=== PATIENT | male | born 1945 | race Caucasian/White ===

== ENCOUNTER 2019-12-01 17:15 | Inpatient (IN) ==
--- NOTE | 2019-12-01 22:01 | History & Physical Report ---
Date of Service December 01, 2019 Assessment & Plan (1) Sepsis: Admit to PCU on telemetry. Initial lactate at [facility] was 4.9 and 4.6. Repeat lactate. She received 1 g of cefepime in the [facility] ER. Started Zosyn IV empirically to cover broad-spectrum. Blood cultures done and [facility] ER and pending. Repeated blood cultures, urine analysis with urine culture and sputum culture. Follow-up with all cultures. DVT prophylaxis patient is supratherapeutic, on warfarin. Hold warfarin and continue checking INR. Desirable INR is between 2 and 3 for pulmonary embolism. Full code Present on Admission?: Yes (2) Acute respiratory failure: Procalcitonin pending. Acute respiratory failure could be related to infection as well as acute exacerbation of CHF. Acute respiratory failure could be also due to pneumonia. Patient was not on oxygen at home. Patient requires right now 2 L of oxygen to be above 92%. Patient received cefepime 1 g IV in [facility]. Started Zosyn IV here empirically, follow-up of blood/sputum/urine/urine cultures and treat per specificity and sensitivity. Patient also started on doxycycline 100 mg p.o. twice daily for atypical microorganisms. Started inhalation with ipratropium/levalbuterol every 6 hours scheduled. Continue montelukast 10 mg p.o. Continue dexamethasone 4 mg p.o. Heart Lasix 40 mg IV daily. Continue oxygen supplementation and keep O2 sats above 92%. Monitor strict in and out. Daily weight. Restrict p.o. intake to 1200 mils. Low-sodium diet. Present on Admission?: Yes (3) Pulmonary embolism: Patient was on warfarin chronically. Will hold warfarin since patient is supratherapeutic at 3.6 and INR supposed to be between 2 and 3 for pulmonary embolism. Monitor closely INR and restart warfarin when INR close to 2. Present on Admission?: Yes (4) Light chain myeloma: Continue acyclovir 400 mg p.o. twice daily, continue dutasteride 0.5 mg p.o. daily. We will consult Dr. Rodriguez hematology oncology Present on Admission?: Yes (5) Acute exacerbation of CHF (congestive heart failure): As discussed above. Strict in and out. Daily weight. Low-sodium diet. Restrict p.o. intake to 1200 mils. Lasix 40 mg IV daily with expectation to have 1.5 L net negative loss. Monitor electrolytes and replenish Present on Admission?: Yes (6) Supratherapeutic INR: INR 3.6-supratherapeutic. Hold warfarin and monitor INR closely. Expectant INR to be between 2 and 3 for pulmonary embolism. 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 Report of the ER physician patient was diagnosed with sepsis based on lactate of 4.6 and he was given Cefepime 1 g IV in the ER. Patient also received albuterol sulfate ipratropium x1 inhalation. Patient stated that his situation has been ongoing for almost 1 week. He reports being short of breath and having a cough which is nonproductive. Patient reports at this time he feels chills and shivering. Patient reports having in his left chest port placed for chemotherapy for multiple myeloma which was placed by on August 02, 2018. Records shows Dr. Rodriguez's note which is significant for completion of induction chemotherapy and the patient underwent autologous peripheral blood stem cell transplant in [place] on December 09, 2016. Patient was noted to suffer disease progression while receiving maintenance Velcade. He was then referred again to specialist in [place] where he was recommended combination of daratumumab, Pomalyst and dexamethasone. Labs are reviewed from [facility] emergency department which shows WBCs of 18.4, hemoglobin 13, hematocrit 39.2, platelets 143, neutrophils of 83 with left shift PT of 32.5, INR 3.64, PTT 63, pH 7.40, PCO2 30, H0 321, glucose 119, creatinine 1.2, GFR 59, sodium 141, potassium 3.6, chloride 112, carbon dioxide 18, calcium 8.8, magnesium 2, total protein 6.8, bilirubin 0.3, AST 8, ALT 27, alkaline phosphatase 76, troponin 0 0.02, BNP 174 high, lactic acid 4.9--4.6. Chest x-rays no evidence of acute abnormality. Decision was made to admit patient to DCU on telemetry for further evaluation and treatment of sepsis and acute exacerbation of congestive heart failure. Allergies Allergy/AdvReac Type Severity Reaction Status Date / Time dexamethasone AdvReac Severe Hallucinati Verified 11/23/19 08:58 on hydrocodone AdvReac Unknown AGITATION Verified 11/23/19 08:58 lisinopril AdvReac Unknown Dizziness Verified 11/23/19 08:58 meclizine AdvReac Unknown HALLUCINATI Verified 11/23/19 08:58 ON Home Medications Home Medications Medication Instructions Recorded Confirmed Type acetaminophen [Acetaminophen Extra 1,000 mg PO Q8H PRN 06/28/18 11/23/19 History Strength] daratumumab 0 mg IV MONTHLY 06/28/18 11/23/19 History polyethylene glycol 3350 [Miralax] 17 g PO DAILY PRN 06/28/18 11/23/19 History pomalidomide 4 mg capsule 4 mg PO DIRECTED 06/29/18 11/23/19 History montelukast [Singulair] 10 mg PO DIRECTED 07/29/18 11/23/19 History Neulasta 6 mg SUBCUT DIRECTED 08/02/18 11/23/19 History acyclovir 400 mg PO BID 08/02/18 11/23/19 History citalopram 10 mg PO QAM 04/25/19 11/23/19 History zoledronic acid 0 mg IV .Q 3 MONTHS 04/25/19 11/23/19 History dutasteride 0.5 mg capsule 0.5 mg PO DAILY #30 cap 10/17/19 11/23/19 Rx warfarin 3 mg tablet See Rx Instructions .ROUTE UD #45 10/19/19 11/23/19 Rx tab potassium citrate 10 mEq (1,080 10 meq PO BID #60 tab 11/23/19 11/23/19 Rx mg) tablet,extended release allopurinol 100 mg tablet 100 mg PO BID #60 tab 11/28/19 Rx Past Med/Surg History Medical History Anemia BASELINE 8-9 RANGE Cancer MULTIPLE MYELOMA (DX'D 2015) Depression GERD (gastroesophageal reflux disease) Osteoporosis 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 Pulmonary embolism 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) SOB (shortness of breath) on exertion Thrombocytopenia Surgical History Bone marrow replaced by transplant Social History Preferred Language: Hebrew Communication Ability: Effective Visual Impairment: No Limitations 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 Beliefs That Will Affect Care: None Current Living Situation: Spouse Feels Safe at Home: Yes Safety Concerns: Feels Safe At This Time Smoking Status: Never smoker Second Hand Exposure: No ; Hx Alcohol Use: No Hx Substance Use: No Review of Systems Review of Systems: All systems reviewed & are unremarkable except as noted in HPI & below Physical Exam Constitutional: WD/WN, vitals as above well developed, + ill appearing and + obese Eyes: PERRL Injected conjunctivitis ENMT: external ear and nose normal, oropharynx normal Neck: trachea midline, no thyromegaly Respiratory: Auscultation: + crackles and + wheezes Cardiovascular: Heart Sounds: normal S1, normal S2 and + murmur Vessels: + JVD and dorsalis pedis pulses present Extremities: + pedal edema Gastrointestinal (Abdomen): normal bowel sounds, soft, nontender, no hepatosplenomegaly Musculoskeletal: no cyanosis or clubbing, extremities motor strength 5/5 Skin: no rashes, warm and dry Neurologic: patellar DTR's 2+ bilat, sensation intact Psychiatric: Patient appears to be mildly confused. Oriented in person. Lymphatic: no cervical or axillary lymphadenopathy Code Status & VTE Plan Code Status Full code VTE Prophylaxis Plan VTE Prophylaxis will be ordered: Yes PG Care Time/CCT Total # of Minutes Spent Total Time Spent with Patient: Total time spent is greater than 50% in coordination of care (as documented) at patient's floor/unit and/or counseling patient: Coding Level of Care Code 12562 Initial Inpt Care Lvl 3 Diagnoses Sepsis A41.9 Acute respiratory failure J96.00 Pulmonary embolism I26.99 Light chain myeloma C90.00 Acute exacerbation of CHF (congestive heart failure) I50.9 Supratherapeutic INR R79.1
[2019-12-01] MEDS ORDERED: PATIENT'S HEIGHT AND/OR WEIGHT NEEDED SCH (22:15)
[2019-12-01] MEDS ORDERED: ALUMINUM/MAGNESIUM SUSP 30 ML UDC PO PRN (22:25)
[2019-12-01] MEDS ORDERED: ONDANSETRON INJ 2 MG/ML 2 ML VIAL IV PRN (22:25)
[2019-12-01] MEDS ORDERED: GUAIFENESIN/DEXTROM SYRUP 200MG/20MG 10ML UDC PO PRN (22:25)
[2019-12-01] MEDS ORDERED: XOPENEX/ATROVENT 0.63mg/0.5MG NEB COMBO NEB SCH (22:25)
[2019-12-01] MEDS ORDERED: POLYETHYLENE (MIRALAX) 17 GM PACK PO PRN (22:25)
[2019-12-01] MEDS ORDERED: ACETAMINOPHEN 325 MG TAB PO PRN (22:25)
[2019-12-01] MEDS ORDERED: MONTELUKAST SODIUM 10 MG TABLET PO SCH (22:25)
[2019-12-01] MEDS ORDERED: dexAMETHasone 4 MG TAB PO SCH (22:25)
[2019-12-01] MEDS ORDERED: PIPERACILL/TAZOBAC CONSULT ACTIVE PRN (22:25)
[2019-12-01] MEDS ORDERED: MAGNESIUM HYDROXIDE SUSP 30 ML UDC PO PRN (22:25)
[2019-12-01] MEDS ORDERED: FUROSEMIDE 40 MG in SYRINGE 0 ML IV ONE (22:35)
[2019-12-01] MEDS ORDERED: PIPERACILLIN/TAZOBACTAM 4.5 GM in DEXTROSE 5% 100 ML IV ONE (22:45)
[2019-12-01] MEDS ORDERED: VANCOMYCIN CONSULT ACTIVE PRN (22:50)
--- NOTE | 2019-12-01 22:52 | XRay Report ---
XR chest 1V portable HISTORY: sepsis COMPARISON: Chest 08/02/2018. FINDINGS: No pneumothorax. No pleural effusions. The heart is normal in size. The lungs are clear. Le ft ureter Port-A-Cath terminates at the distal SVC. This remains unchanged. IMPRESSION: No significant change compared to the prior study. No acute process. ACT 112: Negative or not required by law. Electronically signed by: Ming Rey M.D. 12/01/2019 10:50 PM
[2019-12-01] MEDS ORDERED: VANCOMYCIN HCL 2,500 MG in SODIUM CHLORIDE 0.9% 500 ML IV ONE (23:00)
[2019-12-01] MEDS: allopurinoL 100 MG TAB PO SCH (23:09)
[2019-12-01] MEDS: POTASSIUM CHLORIDE 20 MEQ TABCR PO SCH (23:10)
[2019-12-01] MEDS: POTASSIUM CITRATE 10 MEQ TAB PO SCH (23:10)
[2019-12-01] MEDS: DOXYCYCLINE HYCLATE 100 MG CAP PO SCH (23:11)
[2019-12-01] MEDS: ACYCLOVIR 400 MG TAB PO SCH (23:14)
[2019-12-01 23:18] LABS: Hematocrit (blood only) 36.9 % (42-52); Mean Corpuscular Hemoglobin 33.8 pg (25-34); Mean Corpuscular Volume 103.9 fL (80-100); Mean Platelet Volume 10.4 fL (7.4-10.4); Platelet Count 135 K/uL (130-400); RDW Coefficient of Variation 16.9 % (11.5-14.5); RDW Standard Deviation 64.7 fL (36.4-46.3); Red Blood Count 3.55 M/uL (4.7-6.1); White Blood Count 11.39 K/uL (4.8-10.8)
[2019-12-01 23:32] LABS: Mean Corpuscular Hgb Conc 32.5 g/dL (32-36)
[2019-12-01 23:36] LABS: Albumin Level 3.2 gm/dl (3.4-5.0); BUN Creatinine Ratio 15.5 (10-20); Creatinine Clr Calc Pharmacy 74.2 ml/min; Est GFR (African American) 82.6; Est GFR (Non-African American) 71.2; Potassium 3.8 mmol/L (3.5-5.1)
[2019-12-01 23:39] LABS: Partial Thromboplastin Ratio 1.5; Partial Thromboplastin Time 39.3 Seconds (21.0-31.0); Prothrombin Time 33.9 Seconds (9.0-12.0)
[2019-12-01 23:41] LABS: Albumin Globulin Ratio 1.1 (0.9-2); Bilirubin,Total 0.3 mg/dl (0.2-1); Globulin 2.9 gm/dl (2.5-4.0); Total Protein 6.1 gm/dl (6.4-8.2); Troponin I 0.016 ng/ml (0-0.045)
[2019-12-01] MEDS: LEVALBUTEROL HCL 0.63 MG/3 ML NEB NEB SCH (23:43)
[2019-12-01] MEDS: IPRATROPIUM BROMIDE NEB SOLN 0.02% 2.5 ML VIAL INH SCH (23:43)
[2019-12-01 23:53] LABS: Basophils # (auto) 0.02 K/uL (0-0.2); Basophils % (auto) 0.2 %; Immature Granulocytes # (auto) 0.03 K/uL (0.00-0.02); Immature Granulocytes % (auto) 0.3 %; Lymphocytes # (auto) 1.12 K/uL (1.2-3.4); Lymphocytes % (auto) 9.8 %; Monocytes # (auto) 0.86 K/uL (0.11-0.59); Monocytes % (auto) 7.6 %; Neutrophils # (auto) 9.36 K/uL (1.4-6.5); Neutrophils % (auto) 82.1 %; Ovalocytes 1+
[2019-12-02 00:01] LABS: INR 3.6 (0.9-1.1)
[2019-12-02 01:19] LABS: Hematocrit (blood only) 36.3 % (42-52); Mean Corpuscular Hemoglobin 34.2 pg (25-34); Mean Corpuscular Hgb Conc 33.1 g/dL (32-36); Mean Corpuscular Volume 103.4 fL (80-100); Mean Platelet Volume 10.2 fL (7.4-10.4); Platelet Count 130 K/uL (130-400); RDW Coefficient of Variation 16.8 % (11.5-14.5); RDW Standard Deviation 63.8 fL (36.4-46.3); Red Blood Count 3.51 M/uL (4.7-6.1); White Blood Count 11.16 K/uL (4.8-10.8)
[2019-12-02 01:37] LABS: Albumin Level 3.2 gm/dl (3.4-5.0); BUN Creatinine Ratio 14.8 (10-20); Calcium 7.7 mg/dl (8.5-10.1); Creatinine Clr Calc Pharmacy 70.1 ml/min; Est GFR (African American) 77.1; Est GFR (Non-African American) 66.5; Potassium 3.7 mmol/L (3.5-5.1)
[2019-12-02 01:40] LABS: Prothrombin Time 34.5 Seconds (9.0-12.0)
[2019-12-02 01:42] LABS: Albumin Globulin Ratio 1.1 (0.9-2); Bilirubin,Total 0.5 mg/dl (0.2-1); Total Protein 6.2 gm/dl (6.4-8.2); Troponin I 0.017 ng/ml (0-0.045)
[2019-12-02] MEDS: IPRATROPIUM BROMIDE NEB SOLN 0.02% 2.5 ML VIAL INH SCH ×4 (01:53→19:47)
[2019-12-02] MEDS: LEVALBUTEROL HCL 0.63 MG/3 ML NEB NEB SCH ×4 (01:53→19:47)
[2019-12-02 02:06] LABS: INR 3.7 (0.9-1.1)
[2019-12-02 02:13] LABS: Basophils # (auto) 0.02 K/uL (0-0.2); Basophils % (auto) 0.2 %; Echinocytes 1+; Immature Granulocytes # (auto) 0.03 K/uL (0.00-0.02); Immature Granulocytes % (auto) 0.3 %; Lymphocytes # (auto) 1.37 K/uL (1.2-3.4); Lymphocytes % (auto) 12.3 %; Monocytes # (auto) 0.94 K/uL (0.11-0.59); Monocytes % (auto) 8.4 %; Neutrophils % (auto) 78.8 %; Ovalocytes 1+
[2019-12-02 03:09] LABS: Influenza A virus by PCR Neg for Influ A (Neg); Influenza B virus by PCR Neg for Influ B (Neg)
[2019-12-02] MEDS ORDERED: COUGH DROP (SUGAR FREE) LOZ 24 LOZ/1 BOX BUCCAL ONE (04:17)
[2019-12-02] MEDS: PIPERACILLIN/TAZOBACTAM 3.375 GM in DEXTROSE 5% 100 ML IV SCH ×3 (04:24→21:16)
[2019-12-02 08:30] LABS: Appearance Urine Clear (Clear); Bacteria Urine Automated Negative (Negative); Bilirubin Urine Negative (Negative); Blood Urine 1+ (Negative); Cast Urine Automated 0 /lpf (0-5); Color Urine Yellow; Epithelial Cell Urine Auto 0-5 /lpf (0-5); Glucose Urine UA Negative (Negative); Ketones Urine Negative (Negative); Leukocyte Esterase Urine Negative (Negative); Nitrite Urine Negative (Negative); Protein Urine Negative (Negative); RBC Urine Automated 0-4 /hpf (0-4); Specific Gravity Urine 1.024 (1.000-1.030); Urobilinogen Urine Negative (Negative)
[2019-12-02] MEDS: POTASSIUM CITRATE 10 MEQ TAB PO SCH ×2 (08:35→21:18)
[2019-12-02] MEDS: ACYCLOVIR 400 MG TAB PO SCH ×2 (08:35→21:19)
[2019-12-02] MEDS: DOXYCYCLINE HYCLATE 100 MG CAP PO SCH ×2 (08:35→21:18)
[2019-12-02] MEDS: CITALOPRAM 20 MG TAB PO SCH (08:36)
[2019-12-02] MEDS: allopurinoL 100 MG TAB PO SCH ×2 (08:36→21:17)
--- NOTE | 2019-12-02 08:41 | CT Scan Report ---
CT SCAN OF THE BRAIN WITHOUT IV CONTRAST CLINICAL HISTORY: Change in mental status. COMPARISON STUDY: No priors. TECHNIQUE: Unenhanced axial CT scan of the brain is performed from the vertex to the skull base. A do se lowering technique was utilized adhering to the principles of ALARA. CT DOSE: 844.62 mGy.cm FINDINGS: Brain parenchyma: There are age-related involutional changes noting mild subcortical and periventric ular microangiopathic change. There is no hemorrhage, mass effect, or evidence of acute territorial i schemia by CT criteria. Walters-white matter differentiation is preserved. No extra-axial fluid collecti on is seen. Ventricles, sulci, cisterns: Prominent secondary to involutional change. Intracranial vasculature: There is atherosclerotic calcification of the cavernous carotid and vertebr al arteries. Calvarium: Unremarkable. Sinuses and mastoids: There is mild mucosal thickening within the maxillary antra and left sphenoid s inus. Moderate mucosal thickening is noted in the ethmoid sinuses. The mastoid air cells are well pne umatized. Orbits: The bony orbits are grossly intact. IMPRESSION: There is no hemorrhage, mass effect, or evidence of acute territorial ischemia by CT frankie villa. ACT 112: Negative or not required by law. Electronically signed by: London Sagastume M.D. 12/02/2019 8:39 AM
[2019-12-02] MEDS ORDERED: FUROSEMIDE 40 MG in SYRINGE 0 ML IV SCH (09:00)
[2019-12-02] MEDS ORDERED: PERFLUTREN LIPID MICROSPHERE (DEFINITY) IV ONE (09:54)
[2019-12-02] MEDS: VANCOMYCIN HCL 1,500 MG in SODIUM CHLORIDE 0.9% 500 ML IV SCH ×2 (10:47→23:12)
--- NOTE | 2019-12-02 11:34 | Hospitalist Progress Note ---
Date of Service December 02, 2019 Assessment & Plan (1) Acute respiratory failure with hypoxia: 2nd acute bronchitis. I repeated a 2-view chest x-ray today - no evidence of complicating pneumonia. He remains on broad-spectrum IV antibiotics and doxy to cover for septicemia/bacteremia while awaiting blood cultures at [facility] and [facility]. Likely, however, that bronchitis is viral-induced. sick with similar symptoms. Cont nebs. Add mucinex. Add IV steroids q12h - spoke with Dr Rodriguez and no contraindication from onc standpoint to use steroids. NC O2 support. Tessalon TID. Incentive spirometry. (2) Acute bronchitis: see above in "acute resp failure" flu PCR neg repeat cxr neg for pneumonia follow-up on cultures at [facility] supportive care (3) Sepsis: Likely due to respiratory virus. Thus far no bacterial source despite the high lactate, etc. Follow-up on blood cultures at [facility] in am. Cont broad-spectrum IV abx until blood cx's are back at 48 hours. BPs remain stable. (4) Pulmonary embolism: dx 2017 about the time of his stem cell transplant. on warfarin - INR supratherapeutic - hold warfarin. INR am. (5) Atrial fibrillation with RVR: New diagnosis. No prior history of such. Echo done at [facility] 2-3 weeks ago - I obtained copy of echo report - normal EF, grade 1 diastolic dysfunction. Check TSH in am. Keep K>4, Mag ~2. Start cardizem infusion at 5mg/hr; titrate for HR <100. Likely the physiological stress of his illness has contributed to PAF. (6) Supratherapeutic INR: Cont to hold warfarin; repeat INR in am. (7) Light chain myeloma: Continue acyclovir 400 mg p.o. twice daily for prophylaxis. Typically takes pomalidomide daily at home for myeloma. I spoke with Dr Rodriguez - ok to hold this for a few days. CBC parameters are acceptable today. (8) Diastolic dysfunction: Seen on recent echo at [facility]. Normal EF. I do not see evidence of acute diastolic CHF. Stop IV lasix. (9) Discharge planning issues: /daughter updated at bedside extensively. They report he had PFTs at [facility] recently - will attempt to get those records. Keep on tele. PT, OT evals requested. Admission and Anticipated Discharge Date Admission Date: December 01, 2019 Results & Data ([facility]) Vital Signs (Past 12 Hours) Vital Signs Temp Pulse Pulse Resp BP Pulse Ox 12/02/19 08:00 105 H 12/02/19 07:53 36.8 C 115 H 18 133/89 96 12/02/19 06:59 57 L 20 90 12/02/19 03:34 36.7 C 110 H 18 127/95 96 12/02/19 01:55 113 H 24 96 12/01/19 23:45 107 H 28 H 97 PG Care Time/CCT Total # of Minutes Spent Total Time Spent with Patient: Total time spent is greater than 50% in coordination of care (as documented) at patient's floor/unit and/or counseling patient: Coding Level of Care Code 53470 Subseq Hosp Care Lvl 3 Diagnoses Acute respiratory failure with hypoxia J96.01 Acute bronchitis J20.9 Bronchitis organism: unspecified organism Sepsis A41.9 Sepsis acute organ dysfunction status: unspecified Sepsis type: sepsis due to unspecified organism Pulmonary embolism I26.99 Acute cor pulmonale presence: unspecified Chronicity: unspecified Pulmonary embolism type: unspecified Atrial fibrillation with RVR I48.91 Supratherapeutic INR R79.1 Light chain myeloma C90.00 Diastolic dysfunction I51.89 Discharge planning issues Z02.9 (1) Acute bronchitis Bronchitis organism: unspecified organism Qualified Code(s): J20.9 - Acute bronchitis, unspecified (2) Sepsis Sepsis acute organ dysfunction status: unspecified Sepsis type: sepsis due to unspecified organism Qualified Code(s): A41.9 - Sepsis, unspecified organism (3) Pulmonary embolism Acute cor pulmonale presence: unspecified Chronicity: unspecified Pulmonary embolism type: unspecified Qualified Code(s): I26.99 - Other pulmonary embolism without acute cor pulmonale
[2019-12-02] MEDS: methylPREDNISolone 40 MG in SYRINGE 0 ML IV SCH ×2 (12:25→21:17)
[2019-12-02] MEDS: guaiFENesin 600 MG TABCR PO SCH ×2 (12:25→21:17)
[2019-12-02] MEDS: BENZONATATE 100 MG CAPSULE PO SCH ×2 (12:25→21:18)
--- NOTE | 2019-12-02 12:58 | XRay Report ---
TWO VIEW CHEST CLINICAL HISTORY: Bronchitis. FINDINGS: PA and lateral chest radiographs are compared to study dated 12/01/2019. Correlation is made with PET/CT dated 09/13/2019. A left internal jugular central venous infusion port is unchanged in p osition. The heart is mildly enlarged noting atherosclerotic calcification of the thoracic aorta. The pulmonary vasculature is noncongested. There is bibasilar scarring/atelectasis. No airspace consolid ation or pleural effusion is identified. There is no pneumothorax. The skeletal structures are hetero geneously osteopenic. The bony thorax is grossly intact. IMPRESSION: Cardiomegaly with no acute cardiopulmonary abnormality. ACT 112: Negative or not required by law. Electronically signed by: London Sagastume M.D. 12/02/2019 12:57 PM
[2019-12-02] MEDS ORDERED: STAT IV Infusion **Titration per Protocol STA (17:57)
[2019-12-02] MEDS ORDERED: dilTIAZem HCL 125 MG in DEXTROSE 5% 100 ML IV SCH (18:00)
[2019-12-02] MEDS: POTASSIUM CHLORIDE 20 MEQ TABCR PO SCH (21:18)
[2019-12-03] MEDS: IPRATROPIUM BROMIDE NEB SOLN 0.02% 2.5 ML VIAL INH SCH ×4 (00:37→19:32)
[2019-12-03] MEDS: LEVALBUTEROL HCL 0.63 MG/3 ML NEB NEB SCH ×4 (00:37→19:32)
[2019-12-03] MEDS: PIPERACILLIN/TAZOBACTAM 3.375 GM in DEXTROSE 5% 100 ML IV SCH ×2 (03:53→11:03)
[2019-12-03 07:04] LABS: Hematocrit (blood only) 34.8 % (42-52); Hemoglobin 11.4 g/dL (14.0-18.0); Mean Corpuscular Hemoglobin 33.8 pg (25-34); Mean Corpuscular Hgb Conc 32.8 g/dL (32-36); Mean Corpuscular Volume 103.3 fL (80-100); Mean Platelet Volume 10.5 fL (7.4-10.4); Platelet Count 106 K/uL (130-400); RDW Coefficient of Variation 16.7 % (11.5-14.5); RDW Standard Deviation 63.7 fL (36.4-46.3); Red Blood Count 3.37 M/uL (4.7-6.1); White Blood Count 5.81 K/uL (4.8-10.8)
[2019-12-03 07:11] LABS: INR 1.8 (0.9-1.1); Prothrombin Time 18.1 Seconds (9.0-12.0)
[2019-12-03 07:44] LABS: Basophils # (auto) 0.01 K/uL (0-0.2); Basophils % (auto) 0.2 %; Echinocytes 1+; Eosinophils # (auto) 0.01 K/uL (0-0.5); Eosinophils % (auto) 0.2 %; Immature Granulocytes # (auto) 0.02 K/uL (0.00-0.02); Immature Granulocytes % (auto) 0.3 %; Lymphocytes # (auto) 0.59 K/uL (1.2-3.4); Lymphocytes % (auto) 10.2 %; Monocytes # (auto) 0.39 K/uL (0.11-0.59); Monocytes % (auto) 6.7 %; Neutrophils # (auto) 4.79 K/uL (1.4-6.5); Neutrophils % (auto) 82.4 %; Ovalocytes 1+
[2019-12-03 07:58] LABS: BUN Creatinine Ratio 22.2 (10-20); Calcium 8.4 mg/dl (8.5-10.1); Creatinine Clr Calc Pharmacy 103.2 ml/min; Est GFR (African American) 105.3; Est GFR (Non-African American) 90.9; Magnesium 2.1 mg/dl (1.8-2.4); Thyroid Stimulating Hormone 1.87 uIu/ml (0.300-4.500)
[2019-12-03] MEDS: methylPREDNISolone 40 MG in SYRINGE 0 ML IV SCH ×2 (08:54→19:56)
[2019-12-03] MEDS: DOXYCYCLINE HYCLATE 100 MG CAP PO SCH ×2 (08:54→19:59)
[2019-12-03] MEDS: ACYCLOVIR 400 MG TAB PO SCH ×2 (08:54→19:59)
[2019-12-03] MEDS: POTASSIUM CITRATE 10 MEQ TAB PO SCH ×2 (08:55→19:57)
[2019-12-03] MEDS: guaiFENesin 600 MG TABCR PO SCH ×2 (08:55→19:57)
[2019-12-03] MEDS: CITALOPRAM 20 MG TAB PO SCH (08:55)
[2019-12-03] MEDS: allopurinoL 100 MG TAB PO SCH ×2 (08:55→19:58)
[2019-12-03] MEDS: BENZONATATE 100 MG CAPSULE PO SCH ×3 (08:55→19:58)
[2019-12-03] MEDS: VANCOMYCIN HCL 1,500 MG in SODIUM CHLORIDE 0.9% 500 ML IV SCH (11:04)
[2019-12-03] MEDS ORDERED: FUROSEMIDE 20 MG in SYRINGE 0 ML IV ONE (12:30)
--- NOTE | 2019-12-03 12:51 | Electrocardiogram Report ---
Test Reason : Blood Pressure : / mmHG Vent. Rate : 087 BPM Atrial Rate : 087 BPM P-R Int : 140 ms QRS Dur : 078 ms QT Int : 374 ms P-R-T Axes : 045 -27 016 degrees QTc Int : 450 ms Poor data quality, interpretation may be adversely affected Sinus rhythm with PAC's Minimal voltage criteria for LVH, may be normal variant Nonspecific T wave abnormality When compared with ECG of 02-DEC-2019 17:43, (unconfirmed) Sinus rhythm has replaced Atrial fibrillation Vent. rate has decreased BY 44 BPM Nonspecific T wave abnormality now evident in Inferior leads Nonspecific T wave abnormality no longer evident in Lateral leads Confirmed by Prabhakar Pan ([id number]) on 12/03/2019 12:50:56 PM Referred By: Corazon Vargas Confirmed By:Prabhakar Pan
[2019-12-03] MEDS ORDERED: WARFARIN SOD 3 MG TAB PO SCH (16:00)
[2019-12-03] MEDS: POTASSIUM CHLORIDE 20 MEQ TABCR PO SCH (19:59)
--- NOTE | 2019-12-03 21:33 | Hospitalist Progress Note ---
Date of Service December 03, 2019 Assessment & Plan (1) Acute respiratory failure with hypoxia: 2nd acute bronchitis. Resolving. Chest x-rays without evidence of complicating pneumonia. He has received broad-spectrum IV antibiotics and doxy to cover for septicemia/bacteremia but blood cx's at [facility] and [facility] both negative. Likely that bronchitis is viral-induced. sick with similar symptoms. Flu PCR neg. Cont nebs, mucinex, tessalon, incentive, and IV steroids. No wean on steroids today; perhaps wean on 3/2 if still improving. Spoke with Dr Rodriguez and no contraindication from onc standpoint to use steroids. (2) Acute bronchitis: see above in "acute resp failure" flu PCR neg repeat cxr neg for pneumonia sputum cx negative cont supportive care finish course of PO doxy in the event he has mycoplasma, etc that is causing his bronchitis (3) Sepsis: Likely due to respiratory virus. Thus far no bacterial source despite the high lactate, etc at time of presentation. Blood cultures at [facility] and at [facility] both negative. Thus, stop IV zosyn and vanco. (4) Pulmonary embolism: dx 2017 about the time of his stem cell transplant. on warfarin - INR had been supratherapeutic; warfarin was on hold. INR today <2 -- resume warfarin. (5) Atrial fibrillation with RVR: New diagnosis. No prior history of such. Echo done at [facility] 2-3 weeks ago - I obtained copy of echo report - normal EF, grade 1 diastolic dysfunction. TSH, mag, K all wnl. Converted back to NSR last pm after only 3-4 hours in a.fib. Cardizem infusion stopped. Likely the physiological stress of his illness contributed to PAF. When he is in NSR there is not much room with his baseline HR or BP to add a l ow-dose BB or CCB. Defer for now. Anticoagulation - on warfarin. (6) Supratherapeutic INR: resolved. resume warfarin today. repeat INR am. (7) Light chain myeloma: Continue acyclovir 400 mg p.o. twice daily for prophylaxis. Typically takes pomalidomide daily at home for myeloma. I spoke with Dr Rodriguez - osorio to hold this for a few days while hospitalized. CBC parameters have been acceptable thus far. Repeat CBC am. (8) Diastolic dysfunction: Seen on recent echo at [facility]. Normal EF. May have mild volume overload in setting of sepsis - give 1 additional dose of IV lasix today 20mg. reassess in am. (9) Discharge planning issues: /daughter updated at bedside again today. They report he had PFTs at [facility] recently - will attempt to get those records given his acute bronchitis. Keep on tele due to PAF yesterday. PT, OT evals requested. Admission and Anticipated Discharge Date Admission Date: December 01, 2019 Anticipated date of discharge: 12/05/19 Subjective pt feeling better today with improved appetite, improved dyspnea, a little less cough. overall just feels he is making progress. yesterday pm he converted to rapid a.fib. went on cardizem infusion. converted back to NSR about 3 hours later. never had symptoms. family at bedside. Review of Systems Constitutional: no fever, no chills, no fatigue and no anorexia Respiratory: + cough, + dyspnea on exertion (improving) and + sputum production (minimal) Cardiovascular: no chest pain Gastrointestinal: no abdominal pain, no nausea and no vomiting Physical Exam Constitutional: well developed and well nourished; no acute distress and no altered mental status ENMT: external ear and nose normal, oropharynx normal Respiratory: no respiratory distress Auscultation: + crackles (minimal - bases) and + wheezes (extensive b/l) Cardiovascular: Rate/Rhythm: regular rate and regular rhythm Heart Sounds: normal S1 and normal S2; no murmur Vessels: + JVD (maybe slight ), posterior tibial pulses present and dorsalis pedis pulses present Extremities: no edema Gastrointestinal (Abdomen): normal bowel sounds, soft, nontender, no hepatosplenomegaly Psychiatric: A+Ox3, euthymic affect Results & Data ([facility]) Vital Signs (Past 12 Hours) Vital Signs Temp Pulse Pulse Resp BP Pulse Ox 12/03/19 19:33 60 16 94 12/03/19 19:03 36.6 C 62 22 135/64 94 12/03/19 16:00 72 12/03/19 14:59 36.7 C 75 20 142/77 H 94 12/03/19 13:36 36.3 C L 78 22 143/73 H 94 12/03/19 12:49 76 16 96 Laboratory Results Laboratory Results - last 24 hr 12/03/19 12/03/19 12/03/19 06:14 06:14 06:14 WBC 5.81 RBC 3.37 L Hgb 11.4 L Hct 34.8 L MCV 103.3 H MCH 33.8 MCHC 32.8 RDW Std Deviation 63.7 H RDW Coeff of Eyal 16.7 H Plt Count 106 L MPV 10.5 H Immature Gran % (Auto) 0.3 Neut % (Auto) 82.4 Lymph % (Auto) 10.2 Lawrence % (Auto) 6.7 Eos % (Auto) 0.2 Baso % (Auto) 0.2 Immature Gran # (Auto) 0.02 Neut # (Auto) 4.79 Lymph # (Auto) 0.59 L Lawrence # (Auto) 0.39 Eos # (Auto) 0.01 Baso # (Auto) 0.01 Ovalocytes 1+ Echinocytes 1+ PT 18.1 H INR 1.8 H Sodium 140 Potassium 4.0 Chloride 111 H Carbon Dioxide 25 Anion Gap 4.0 BUN 17 Creatinine 0.74 D Est Cr Clr Drug Dosing 103.2 Est GFR ( Amer) 105.3 Est GFR (Non-Af Amer) 90.9 BUN/Creatinine Ratio 22.2 H Glucose 117 H Calcium 8.4 L Magnesium 2.1 TSH 1.870 Diagnostic Findings blood cx's from [facility] negative x 48 hours blood cx's [facility] negative sputum cx thus far negative PG Care Time/CCT Total # of Minutes Spent Total Time Spent with Patient: Total time spent is greater than 50% in coordination of care (as documented) at patient's floor/unit and/or counseling patient: Coding Level of Care Code 95541 Subseq Hosp Care Lvl 3 Diagnoses Acute respiratory failure with hypoxia J96.01 Acute bronchitis J20.9 Bronchitis organism: unspecified organism Sepsis A41.9 Sepsis type: sepsis due to unspecified organism Sepsis acute organ dysfunction status: unspecified Pulmonary embolism I26.99 Pulmonary embolism type: unspecified Chronicity: unspecified Acute cor pulmonale presence: unspecified Atrial fibrillation with RVR I48.91 Supratherapeutic INR R79.1 Light chain myeloma C90.00 Diastolic dysfunction I51.89 Discharge planning issues Z02.9 (1) Acute bronchitis Bronchitis organism: unspecified organism Qualified Code(s): J20.9 - Acute bronchitis, unspecified (2) Sepsis Sepsis type: sepsis due to unspecified organism Sepsis acute organ dysfunction status: unspecified Qualified Code(s): A41.9 - Sepsis, unspecified organism (3) Pulmonary embolism Pulmonary embolism type: unspecified Chronicity: unspecified Acute cor pulmonale presence: unspecified Qualified Code(s): I26.99 - Other pulmonary embolism without acute cor pulmonale
[2019-12-04] MEDS: LEVALBUTEROL HCL 0.63 MG/3 ML NEB NEB SCH ×4 (00:41→19:37)
[2019-12-04] MEDS: IPRATROPIUM BROMIDE NEB SOLN 0.02% 2.5 ML VIAL INH SCH ×4 (00:42→19:36)
[2019-12-04 05:58] LABS: Hematocrit (blood only) 32.9 % (42-52); Hemoglobin 10.9 g/dL (14.0-18.0); Mean Corpuscular Hemoglobin 34.5 pg (25-34); Mean Corpuscular Hgb Conc 33.1 g/dL (32-36); Mean Corpuscular Volume 104.1 fL (80-100); Mean Platelet Volume 10.3 fL (7.4-10.4); Platelet Count 102 K/uL (130-400); RDW Coefficient of Variation 16.5 % (11.5-14.5); RDW Standard Deviation 64.1 fL (36.4-46.3); Red Blood Count 3.16 M/uL (4.7-6.1); White Blood Count 7.31 K/uL (4.8-10.8)
[2019-12-04 06:07] LABS: INR 1.8 (0.9-1.1); Prothrombin Time 18.1 Seconds (9.0-12.0)
[2019-12-04 06:25] LABS: Echinocytes 1+; Immature Granulocytes # (auto) 0.02 K/uL (0.00-0.02); Immature Granulocytes % (auto) 0.3 %; Lymphocytes # (auto) 0.82 K/uL (1.2-3.4); Lymphocytes % (auto) 11.2 %; Monocytes # (auto) 0.57 K/uL (0.11-0.59); Monocytes % (auto) 7.8 %; Neutrophils % (auto) 80.7 %
[2019-12-04 06:33] LABS: BUN Creatinine Ratio 32.8 (10-20); Calcium 8.9 mg/dl (8.5-10.1); Creatinine Clr Calc Pharmacy 96.6 ml/min; Est GFR (African American) 103.1; Est GFR (Non-African American) 88.9; Potassium 4.2 mmol/L (3.5-5.1)
[2019-12-04] MEDS: BENZONATATE 100 MG CAPSULE PO SCH ×3 (08:19→21:05)
[2019-12-04] MEDS: guaiFENesin 600 MG TABCR PO SCH ×2 (08:19→21:05)
[2019-12-04] MEDS: CITALOPRAM 20 MG TAB PO SCH (08:19)
[2019-12-04] MEDS: methylPREDNISolone 40 MG in SYRINGE 0 ML IV SCH (08:19)
[2019-12-04] MEDS: allopurinoL 100 MG TAB PO SCH ×2 (08:20→21:06)
[2019-12-04] MEDS: POTASSIUM CITRATE 10 MEQ TAB PO SCH ×2 (08:20→21:06)
[2019-12-04] MEDS: ACYCLOVIR 400 MG TAB PO SCH ×2 (08:20→21:06)
--- NOTE | 2019-12-04 13:20 | Hospitalist Progress Note ---
Date of Service December 04, 2019 Assessment & Plan (1) Acute respiratory failure with hypoxia: 2nd acute bronchitis. Resolving. Chest x-rays without evidence of complicating pneumonia. He has received broad-spectrum IV antibiotics and doxy to cover for septicemia/bacteremia but blood cx's at [facility] and [facility] both negative. Likely that bronchitis is viral-induced. sick with similar symptoms. Flu PCR neg. stop Solu Medrol today, start Prednisone tomorrow morning with quick taper on discharge downgrade to medical floor today plan for d/c home tomorrow (2) Acute bronchitis: see above in "acute resp failure" flu PCR neg repeat cxr neg for pneumonia sputum cx negative cont supportive care finish 5 day course of PO doxy in the event he has mycoplasma, etc that is causing his bronchitis (3) Sepsis: Likely due to respiratory virus. Thus far no bacterial source despite the high lactate, etc at time of presentation. Blood cultures at [facility] and at [facility] both negative. Thus, stop IV zosyn and vanco. 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 on warfarin - INR had been supratherapeutic; warfarin was on hold. INR today is 1.8, warfarin has been resumed (5) Atrial fibrillation with RVR: New diagnosis. No prior history of such. Echo done at [facility] 2-3 weeks ago - I obtained copy of echo report - normal EF, grade 1 diastolic dysfunction. TSH, mag, K all wnl. Converted back to NSR after only 3-4 hours in a.fib. Cardizem infusion stopped after he converted Likely the physiological stress of his illness contributed to PAF. When he is in NSR there is not much room with his baseline HR (60's) to add a low-dose BB or CCB. Defer for now. Anticoagulation - on warfarin. (6) Supratherapeutic INR: resolved. 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 twice daily for prophylaxis. Typically takes pomalidomide daily at home for myeloma. I spoke with Dr Jennifer ac to hold this for a few days while hospitalized. CBC parameters have been acceptable thus far. Repeat CBC am. resume pomalidomide on discharge (8) Diastolic dysfunction: Seen on recent echo at [facility]. Normal EF. no evidence of volume overload today (9) Discharge planning issues: if no afib through this afternoon then transfer to medical plan for d/c on 12/04 PT, OT rené requested. Admission and Anticipated Discharge Date Admission Date: December 01, 2019 Anticipated date of discharge: 12/05/19 Subjective patient doing well, breathing comfortably on room air has a cough but little to no sputum production eating very well no fever / chills, no chest pain, no nausea labs reviewed, CBC stable, INR 1.8, BMP stable reviewed tele, no atrial fibrillation will downgrade later today, plan for discharge late tomorrow morning, he agrees family updated Review of Systems Review of Systems: All systems reviewed & are unremarkable except as noted in HPI & below Constitutional: no fever, no chills, no fatigue and no weakness Respiratory: + cough and + dyspnea on exertion; no dyspnea and no sputum production Cardiovascular: no chest pain Gastrointestinal: no abdominal pain, no nausea, no vomiting, no constipation and no diarrhea/loose stools Physical Exam Constitutional: WD/WN, vitals as above Eyes: PERRL, conjunctivae normal, anicteric sclerae ENMT: external ear and nose normal, oropharynx normal Neck: trachea midline, no thyromegaly Respiratory: normal respiratory effort, lungs clear to auscultation Cardiovascular: RRR, no murmur, no edema Gastrointestinal (Abdomen): normal bowel sounds, soft, nontender, no hepatosplenomegaly Musculoskeletal: no cyanosis or clubbing, extremities motor strength 5/5 Skin: no rashes, warm and dry Neurologic: patellar DTR's 2+ bilat, sensation intact and PERRL, EOMI, accommodation nl, no face palsy, no dysarthria Psychiatric: A+Ox3, euthymic affect Lymphatic: no cervical or axillary lymphadenopathy Results & Data ([facility]) Vital Signs (Past 12 Hours) Vital Signs Temp Pulse Pulse Resp BP Pulse Ox 12/04/19 11:40 36.4 C L 68 20 161/81 H 93 12/04/19 08:00 53 L 12/04/19 07:54 36.4 C L 60 22 133/78 93 12/04/19 06:51 97 H 18 96 12/04/19 04:00 36.9 C 52 L 19 141/58 H 92 Laboratory Results Laboratory Results - last 24 hr 12/04/19 12/04/19 12/04/19 05:24 05:24 05:24 WBC 7.31 RBC 3.16 L Hgb 10.9 L Hct 32.9 L MCV 104.1 H MCH 34.5 H MCHC 33.1 RDW Std Deviation 64.1 H RDW Coeff of Eyal 16.5 H Plt Count 102 L MPV 10.3 Immature Gran % (Auto) 0.3 Neut % (Auto) 80.7 Lymph % (Auto) 11.2 [place] % (Auto) 7.8 Eos % (Auto) 0.0 Baso % (Auto) 0.0 Immature Gran # (Auto) 0.02 Neut # (Auto) 5.90 Lymph # (Auto) 0.82 L [place] # (Auto) 0.57 Eos # (Auto) 0.00 Baso # (Auto) 0.00 Echinocytes 1+ PT 18.1 H INR 1.8 H Sodium 142 Potassium 4.2 Chloride 111 H Carbon Dioxide 27 Anion Gap 4.0 BUN 26 H D Creatinine 0.78 Est Cr Clr Drug Dosing 96.6 Est GFR ( Amer) 103.1 Est GFR (Non-Af Amer) 88.9 BUN/Creatinine Ratio 32.8 H Glucose 116 H Calcium 8.9 Medications Administered Current Inpatient Medications Acetaminophen (Tylenol) 650 mg PO Q4H PRN PRN Reason: Pain or Fever Stop: 12/31/19 22:24 Acyclovir (Zovirax) 400 mg PO BID [facility] Stop: 12/31/19 22:24 Last Admin: 12/04/19 08:20 Dose: 400 mg Documented by: Al Hydrox/Mg Hydrox/Simethicone (Maalox) 15 ml PO Q4H PRN PRN Reason: Dyspepsia Stop: 12/31/19 22:24 Allopurinol (Zyloprim) 100 mg PO BID [facility] Stop: 12/31/19 22:24 Last Admin: 12/04/19 08:20 Dose: 100 mg Documented by: Benzonatate (Tessalon Perle) 100 mg PO TID [facility] Stop: 01/01/20 13:59 Last Admin: 12/04/19 08:19 Dose: 100 mg Documented by: Citalopram Hydrobromide (Celexa) 10 mg PO QAM [facility] Stop: 01/01/20 08:59 Last Admin: 12/04/19 08:19 Dose: 10 mg Documented by: Guaifenesin (Mucinex) 1,200 mg PO Q12 [facility] Stop: 01/01/20 11:34 Last Admin: 12/04/19 08:19 Dose: 1,200 mg Documented by: Guaifenesin/Dextromethorphan (Robitussin Cough-Chest Dm) 10 ml PO Q6H PRN PRN Reason: Cough Stop: 12/31/19 22:24 Ipratropium [place] (Atrovent 0.02% 0.5mg/2.5ml) 0.5 mg INH Q6R [facility] Stop: 12/31/19 22:24 Last Admin: 12/04/19 13:16 Dose: 0.5 mg Documented by: Levalbuterol HCl (Xopenex 0.63 Mg/3 Ml Neb) 0.63 mg NEB Q6R [facility] Stop: 12/31/19 22:24 Last Admin: 12/04/19 13:16 Dose: 0.63 mg Documented by: Magnesium Hydroxide (Milk Of Magnesia) 30 ml PO Q12H PRN PRN Reason: Constipation Stop: 12/31/19 22:24 Miscellaneous (Order Awaiting Action) 1 ea N/A QS [facility] Stop: 01/01/20 07:59 Last Admin: 12/04/19 08:20 Dose: Not Given Documented by: Ondansetron HCl (Zofran) 4 mg IV Q6H PRN PRN Reason: Nausea Stop: 12/31/19 22:24 Last Admin: 12/02/19 02:08 Dose: 4 mg Documented by: Polyethylene Glycol (Miralax Powder Packet) 17 gm PO DAILY PRN PRN Reason: Constipation Stop: 12/31/19 22:24 Last Admin: 12/03/19 19:56 Dose: 17 gm Documented by: Potassium Chloride (Klor-Con M20) 20 meq PO QPM [facility] Stop: 12/31/19 22:24 Last Admin: 12/03/19 19:59 Dose: 20 meq Documented by: Potassium Citrate (Urocit-K) 10 meq PO BID [facility] Stop: 12/31/19 22:24 Last Admin: 12/04/19 08:20 Dose: 10 meq Documented by: Prednisone (Prednisone) 40 mg PO QAM [facility] Stop: 01/04/20 08:59 Warfarin Sodium (Coumadin) 3 mg PO SuTuWeFrSa@1600 [facility] Stop: 01/02/20 15:59 Last Admin: 12/03/19 15:41 Dose: 3 mg Documented by: Warfarin Sodium (Coumadin) 4 mg PO MoTh@1600 [facility] Stop: 01/03/20 15:59 Warfarin Sodium (Coumadin) 0.5 mg PO MoTh@1600 [facility] Stop: 01/03/20 15:59 PG Care Time/CCT Total # of Minutes Spent Total Time Spent with Patient: Total time spent is greater than 50% in coordination of care (as documented) at patient's floor/unit and/or counseling patient: Coding Level of Care Code 94143 Subseq Hosp Care Lvl 2 Diagnoses Acute respiratory failure with hypoxia J96.01 Acute bronchitis J20.9 Bronchitis organism: unspecified organism Sepsis A41.9 Sepsis type: sepsis due to unspecified organism Sepsis acute organ dysfunction status: unspecified Pulmonary embolism I26.99 Pulmonary embolism type: unspecified Chronicity: unspecified Acute cor pulmonale presence: unspecified Atrial fibrillation with RVR I48.91 Supratherapeutic INR R79.1 Light chain myeloma C90.00 Diastolic dysfunction I51.89 Discharge planning issues Z02.9 (1) Acute bronchitis Bronchitis organism: unspecified organism Qualified Code(s): J20.9 - Acute bronchitis, unspecified (2) Sepsis Sepsis type: sepsis due to unspecified organism Sepsis acute organ dysfunction status: unspecified Qualified Code(s): A41.9 - Sepsis, unspecified organism (3) Pulmonary embolism Pulmonary embolism type: unspecified Chronicity: unspecified Acute cor pulmonale presence: unspecified Qualified Code(s): I26.99 - Other pulmonary embolism without acute cor pulmonale
[2019-12-04] MEDS ORDERED: WARFARIN SOD 0.5 MG TAB PO SCH (16:00)
[2019-12-04] MEDS ORDERED: WARFARIN SOD 3 MG TAB PO SCH (16:00)
[2019-12-04] MEDS ORDERED: WARFARIN SOD 4 MG TAB PO SCH (16:00)
[2019-12-04] MEDS: POTASSIUM CHLORIDE 20 MEQ TABCR PO SCH (21:05)
[2019-12-05] MEDS: LEVALBUTEROL HCL 0.63 MG/3 ML NEB NEB SCH ×2 (01:08→07:19)
[2019-12-05] MEDS: IPRATROPIUM BROMIDE NEB SOLN 0.02% 2.5 ML VIAL INH SCH ×2 (01:09→07:19)
[2019-12-05 06:37] LABS: Eosinophils # (auto) 0.01 K/uL (0-0.5); Eosinophils % (auto) 0.1 %; Hematocrit (blood only) 35.7 % (42-52); Hemoglobin 11.8 g/dL (14.0-18.0); Immature Granulocytes # (auto) 0.02 K/uL (0.00-0.02); Immature Granulocytes % (auto) 0.3 %; Lymphocytes # (auto) 0.74 K/uL (1.2-3.4); Lymphocytes % (auto) 9.7 %; Mean Corpuscular Hemoglobin 34.4 pg (25-34); Mean Corpuscular Hgb Conc 33.1 g/dL (32-36); Mean Corpuscular Volume 104.1 fL (80-100); Mean Platelet Volume 10.9 fL (7.4-10.4); Monocytes # (auto) 1.42 K/uL (0.11-0.59); Monocytes % (auto) 18.6 %; Neutrophils # (auto) 5.46 K/uL (1.4-6.5); Neutrophils % (auto) 71.3 %; Platelet Count 100 K/uL (130-400); RDW Coefficient of Variation 16.4 % (11.5-14.5); RDW Standard Deviation 62.3 fL (36.4-46.3); Red Blood Count 3.43 M/uL (4.7-6.1); White Blood Count 7.65 K/uL (4.8-10.8)
[2019-12-05 06:44] LABS: INR 2.1 (0.9-1.1); Prothrombin Time 20.8 Seconds (9.0-12.0)
[2019-12-05] MEDS: ACYCLOVIR 400 MG TAB PO SCH (07:48)
[2019-12-05] MEDS: CITALOPRAM 20 MG TAB PO SCH (07:48)
[2019-12-05] MEDS: guaiFENesin 600 MG TABCR PO SCH (07:49)
[2019-12-05] MEDS: BENZONATATE 100 MG CAPSULE PO SCH (07:49)
[2019-12-05] MEDS: POTASSIUM CITRATE 10 MEQ TAB PO SCH (07:49)
[2019-12-05] MEDS: allopurinoL 100 MG TAB PO SCH (07:49)
[2019-12-05] MEDS ORDERED: predniSONE 20 MG TAB PO SCH (09:00)
--- NOTE | 2019-12-05 10:20 | Discharge Summary ---
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. Report of the ER physician patient was diagnosed with sepsis based on lactate of 4.6 and he was given Cefepime 1 g IV in the ER. Patient also received albuterol sulfate ipratropium x1 inhalation. Patient stated that his situation has been ongoing for almost 1 week. He reports being short of breath and having a cough which is nonproductive. Patient reports at this time he feels chills and shivering. Patient reports having in his left chest port placed for chemotherapy for multiple myeloma which was placed by on August 02, 2018. Records shows Dr. Rodriguez's note which is significant for completion of induction chemotherapy and the patient underwent autologous peripheral blood st em cell transplant in [place] on December 09, 2016. Patient was noted to suffer disease progression while receiving maintenance Velcade. He was then referred again to specialist in [place] where he was recommended combination of daratumumab, Pomalyst and dexamethasone. Labs are reviewed from [facility] emergency department which shows WBCs of 18.4, hemoglobin 13, hematocrit 39.2, platelets 143, neutrophils of 83 with left shift PT of 32.5, INR 3.64, PTT 63, pH 7.40, PCO2 30, H0 321, glucose 119, creatinine 1.2, GFR 59, sodium 141, potassium 3.6, chloride 112, carbon dioxide 18, calcium 8.8, magnesium 2, total protein 6.8, bilirubin 0.3, AST 8, ALT 27, alkaline phosphatase 76, troponin 0 0.02, BNP 174 high, lactic acid 4.9--4.6. Chest x-rays no evidence of acute abnormality. Decision was made to admit patient to DCU on telemetry for further evaluation and treatment of sepsis and acute exacerbation of congestive heart failure. Principal Diagnosis Acute respiratory failure with hypoxia due to acute bronchitis Discharge Exam Constitutional WD/WN, vitals as above Eyes PERRL, conjunctivae normal, anicteric sclerae ENMT external ear and nose normal, oropharynx normal Neck trachea midline, no thyromegaly Respiratory normal respiratory effort, lungs clear to auscultation Cardiovascular RRR, no murmur, no edema Gastrointestinal (Abdomen) normal bowel sounds, soft, nontender, no hepatosplenomegaly Musculoskeletal no cyanosis or clubbing, extremities motor strength 5/5 Skin no rashes, warm and dry Neurologic patellar DTR's 2+ bilat, sensation intact and PERRL, EOMI, accommodation nl, no face palsy, no dysarthria Psychiatric A+Ox3, euthymic affect Lymphatic no cervical or axillary lymphadenopathy Discharge Data Allergies Allergy/AdvReac Type Severity Reaction Status Date / Time dexamethasone AdvReac Severe Hallucinati Verified 11/23/19 08:58 on hydrocodone AdvReac Unknown AGITATION Verified 11/23/19 08:58 lisinopril AdvReac Unknown Dizziness Verified 11/23/19 08:58 meclizine AdvReac Unknown HALLUCINATI Verified 11/23/19 08:58 ON Ordered Studies 12/01/19 21:55 CT head/brain wo con Urgent Hospital Course (1) Acute respiratory failure with hypoxia: 2nd acute bronchitis. nearly resolved Chest x-rays without evidence of complicating pneumonia. He has received broad-spectrum IV antibiotics and doxy to cover for septicemia/bacteremia but blood cx's at [facility] and [facility] both negative. Likely that bronchitis is viral-induced. sick with similar symptoms. Flu PCR neg. stopped Solu Medrol 3/, started Prednisone on day of discharge, plan for quick taper d/c to home (2) Acute bronchitis: see above in "acute resp failure" flu PCR neg repeat cxr neg for pneumonia sputum cx negative cont supportive care finish 5 day course of PO doxy in the event he has mycoplasma, etc that is causing his bronchitis (3) Pulmonary embolism: dx 2017 about the time of his stem cell transplant. on warfarin - INR had been supratherapeutic; warfarin was on hold. INR trending back up after it dropped to 1.8, continue Coumadin on discharge on prior dosing (4) Atrial fibrillation with RVR: New diagnosis. No prior history of such. Echo done at [facility] 2-3 weeks ago - I obtained copy of echo report - normal EF, grade 1 diastolic dysfunction. TSH, mag, K all wnl. Converted back to NSR after only 3-4 hours in a.fib. Cardizem infusion stopped after he converted Likely the physiological stress of his illness contributed to PAF. When he is in NSR there is not much room with his baseline HR (60's) to add a low-dose BB or CCB. Defer for now. Anticoagulation - on warfarin. (5) Supratherapeutic INR: resolved. resumed warfarin 12/02 (6) Light chain myeloma: Continue acyclovir 400 mg p.o. twice daily for prophylaxis. Typically takes pomalidomide daily at home for myeloma. I spoke with Dr Jennifer ac to hold this for a few days while hospitalized. CBC parameters have been acceptable thus far. Repeat CBC am. resume pomalidomide on discharge (7) Diastolic dysfunction: Seen on recent echo at [facility]. Normal EF. no evidence of volume overload today Total Time Total Time Spent Total Time Spent (In Minutes): 31 minutes Total Time Includes: Examination of the Patient, Discharge Planning and Medication Reconciliation Discharge Plan Discharge Items Patient Disposition: Home - Self-Care Reason For Visit: Acute bronchitis Discharge Diagnosis: Acute bronchitis Bronchial pneumonia Acute respiratory failure, resolved Condition on Discharge: Good Goals: improve strength and mobility improve nutrition Activity: Resume your previous activity Driving/Machine Use: Resume 3 days after discharge Weightbearing: Full weightbearing Non-emergency contact: Primary Care Provider Call non-emergency contact if: you have any medication questions, your symptoms worsen and you have a fever Follow-up/Referrals: Corazon Vargas MD [Primary Care Provider] - 12/13/19 9:40 am (You have an appt with your PCP on WednesdayDecember 12 at 940am. Please arrive 15 minutes prior to your appt time. If this appt does not fit your schedule please call [phone] to reschedule. ) Diet: Regular Addtl Attending Provider Instructions: Medications: - PREDNISONE: follow taper starting tomorrow 3/4, 30mg daily x 2 days, 20mg daily x 2 days, 10mg daily x 2 days - LEVALBUTEROL: inhaler, use every 6 hours as needed for shortness of breath Acute bronchitis, possible bronchial pneumonia, acute hypoxia improved with IV steroids, nebulizers and antibiotics completed 5 days of antibiotics, no further antibiotics needed complete brief taper on Prednisone use inhaler as needed for dyspnea (shortness of breath) please follow up with PCP on 12/13/19 Pending Studies at Discharge: No Stand-Alone Forms: My [facility], Smoking Cessation Medications and DC Order Prescriptions: New prednisone 10 mg tablet 10 mg PO UD Qty: 12 RF: 0 levalbuterol tartrate 45 mcg/actuation HFA aerosol inhaler 1 puffs INH Q6H PRN (Reason: shortness of breath) Qty: 15 RF: 1 Continued acetaminophen [Acetaminophen Extra Strength] 500 mg Tablet 1,000 mg PO Q8 PRN (Reason: Fever Or Pain) RF: 0 polyethylene glycol 3350 [Miralax] 17 gram/dose Powder 17 g PO DAILY PRN (Reason: Constipation) RF: 0 daratumumab 20 mg/mL Solution 0 mg IV MONTHLY RF: 0 pomalidomide 4 mg capsule 4 mg PO DIRECTED RF: 0 warfarin 3 mg tablet See Rx Instructions .ROUTE UD Qty: 45 RF: 4 dutasteride 0.5 mg capsule 0.5 mg PO DAILY Qty: 30 RF: 2 allopurinol 100 mg tablet 100 mg PO BID Qty: 60 RF: 2 potassium citrate [Urocit-K 10] 10 mEq (1,080 mg) tablet extended release 10 meq PO BID Qty: 60 RF: 11 montelukast [Singulair] 10 mg Tablet 10 mg PO DIRECTED RF: 0 acyclovir 400 mg Tablet 400 mg PO BID RF: 0 Neulasta 6 mg/0.6 mL Syringe, W/ Wearable Injector 6 mg subcut DIRECTED RF: 0 citalopram 10 mg tablet 10 mg PO QAM RF: 0 zoledronic acid 4 mg/5 mL Solution 0 mg IV .Q 3 MONTHS RF: 0 Discharge Orders: Discharge Order (Routine); Ordered 12/05/19 Ordered By: Bart Corado Admission Data Admit Date/Time: 12/01/19 21:45 Attending Provider: Bart Corado Admit Provider: Luda Bella Primary Care Provider: Corazon Vargas Other Interventions: Discharge Summary Assessment (RN) Last Done: 12/05/19 10:40 DC Date/Time DO NOT enter until pt leaves facility: 12/05/19 13:28 Coding Level of Care Code D/C Day Management >30 mins Diagnoses Acute respiratory failure with hypoxia J96.01 Acute bronchitis J20.9 Bronchitis organism: unspecified organism Pulmonary embolism I26.99 Acute cor pulmonale presence: unspecified Chronicity: unspecified Pulmonary embolism type: unspecified Atrial fibrillation with RVR I48.91 Supratherapeutic INR R79.1 Light chain myeloma C90.00 Diastolic dysfunction I51.89
== END 2019-12-05 13:28 | disposition home or self-care (01) | DRG 189 ==
LOC: SUATTDRO 21:45 → 2E 21:45 → 4W 12-04 15:14
DX: Z86.711 Personal history of pulmonary embolism; J20.9 Acute bronchitis, unspecified; J96.00 Acute respiratory failure, unspecified whether with hypoxia or hypercapnia; C90.00 Multiple myeloma not having achieved remission; B97.4 Respiratory syncytial virus as the cause of diseases classified elsewhere; I48.91 Unspecified atrial fibrillation

== ENCOUNTER 2021-11-15 23:44 | Observation (INO) ==
[2021-11-16] MEDS ORDERED: SODIUM CHLORIDE 0.9% 500 ML IV STA (00:05)
[2021-11-16 00:34] LABS: Hematocrit (blood only) 34.7 % (42-52); Hemoglobin 11.2 g/dL (14.0-18.0); Mean Corpuscular Hemoglobin 32.9 pg (25-34); Mean Corpuscular Hgb Conc 32.3 g/dL (32-36); Mean Corpuscular Volume 102.1 fL (80-100); Mean Platelet Volume 10.4 fL (7.4-10.4); Platelet Count 110 K/uL (130-400); RDW Coefficient of Variation 17.9 % (11.5-14.5); White Blood Count 7.55 K/uL (4.8-10.8)
[2021-11-16] MEDS ORDERED: ACETAMINOPHEN 1,000 MG/100 ML VIAL IV STA (00:37)
--- NOTE | 2021-11-16 00:40 | Emergency Department Note ---
History of Present Illness General Chief complaint: Shortness of Breath/Dyspnea Stated complaint: sob Time Seen by Provider: 11/16/21 00:04 History of Present Illness 76-year-old male patient with significant past medical history of multiple myeloma, chronic anticoagulation, presents to the emergency department today for evaluation of fever and chills which began today. The patient's believes he has been going to the bathroom more frequently than normal. He has been feeling somewhat more short of breath and states "I can't get my wind". Patient did receive an influenza and COVID-19 vaccine this year. He denies any chest pain. He denies any abdominal pain, nausea, vomiting, constipation, diarrhea. The patient has not had anything for his symptoms. He denies any current pain. Home Medications Medication Instructions Recorded Confirmed Type acetaminophen 500 mg tablet 1,000 mg PO Q8 PRN 06/28/18 11/16/21 History (Acetaminophen Extra Strength) daratumumab 20 mg/mL intravenous 0 mg IV MONTHLY 06/28/18 11/16/21 History solution polyethylene glycol 3350 17 17 g PO DAILY PRN 06/28/18 11/16/21 History gram/dose oral powder (Miralax) pomalidomide 4 mg capsule 4 mg PO DIRECTED 06/29/18 11/16/21 History acyclovir 400 mg tablet 400 mg PO BID 08/02/18 11/16/21 History pegfilgrastim 6 mg/0.6 mL 6 mg SUBCUT DIRECTED 08/02/18 11/16/21 History (deliverable) wearable subcutaneous injector (Neulasta Onpro) citalopram 10 mg tablet 10 mg PO QAM 04/25/19 11/16/21 History zoledronic acid 4 mg/5 mL 0 mg IV .Q 3 MONTHS 04/25/19 11/16/21 History intravenous solution levalbuterol tartrate 45 1 puffs INH Q6H PRN #15 gm 12/05/19 11/16/21 Rx mcg/actuation aerosol inhaler montelukast 10 mg tablet 10 mg PO DAILY PRN tab 07/25/20 11/16/21 History (Singulair) allopurinol 100 mg tablet 100 mg PO BID #180 tab 02/25/21 11/16/21 Rx potassium citrate 10 mEq (1,080 10 meq PO BID 90 Days #180 tab 02/25/21 11/16/21 Rx mg) tablet,extended release (Urocit-K 10) furosemide 20 mg tablet (Lasix) 20 mg PO QAM 02/28/21 11/16/21 History warfarin 3 mg tablet See Rx Instructions PO UD tab 09/08/21 11/16/21 History dutasteride 0.5 mg capsule 0.5 mg PO QAM 10/15/21 11/16/21 History fluticasone furoate 200 1 inh INHALATION QAM 10/15/21 11/16/21 History mcg-vilanterol 25 mcg/dose inhalation powder (Breo Ellipta) dexamethasone 4 mg tablet 8 mg PO DIRECTED 11/16/21 11/16/21 History Allergies Allergy/AdvReac Type Severity Reaction Status Date / Time dexamethasone AdvReac Severe Hallucinati Verified 11/16/21 02:14 on meclizine AdvReac Intermediate HALLUCINATI Verified 11/16/21 02:14 ON hydrocodone AdvReac Mild AGITATION Verified 11/16/21 02:14 levofloxacin [From Levaquin] AdvReac Mild muscle Verified 11/16/21 02:14 weakness lisinopril AdvReac Mild Dizziness Verified 11/16/21 02:14 Past Med/Surg History Medical History Anemia BASELINE 8-9 RANGE Cancer MULTIPLE MYELOMA (DX'D 2015); stem cell transplant, chemo Depression GERD (gastroesophageal reflux disease) History of nephrolithiasis History of pneumothorax 2020 with lung biopsy COUNCIL (hard of hearing) Irregular heartbeat Osteoporosis 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 Port-A-Cath in place Left chest Pulmonary embolism 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); 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 SOB (shortness of breath) on exertion Thrombocytopenia Tremor Surgical History Bone marrow replaced by transplant History of cataract surgery RT History of chest tube placement History of lung biopsy benign Family History Father Cardiac disorder Mother Cancer Stroke Other No family history of adverse response to anesthesia Social History Smoking Status: Never smoker Second Hand Exposure: No; Hx Alcohol Use: No Hx Substance Use: No Preferred Language: [place] Communication Ability: Effective Visual Impairment: No Limitations 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 Beliefs That Will Affect Care: None Current Living Situation: Spouse Feels Safe at Home: Yes Assistive Devices: None Review of Systems A total of 10 systems reviewed and were otherwise negative Physical Exam Vital Signs Vital Signs - 24 hr 11/15/21 23:48 11/16/21 00:00 11/16/21 00:30 Temperature 38.2 C H Temperature Source Oral Pulse Rate 96 H 93 H 94 H Respiratory Rate 24 24 22 Blood Pressure 134/80 124/76 127/75 Blood Pressure Mean 98 92 92 Pulse Oximetry 94 96 93 Oxygen Delivery Method Nasal Cannula Room Air Room Air Oxygen Flow Rate 4 Sepsis Recent Fever Within 48 Hours Yes Sepsis New/Unexplained Change in Mental Status No Sepsis Action Taken by Nursing Physician Notified 11/16/21 01:00 11/16/21 01:30 11/16/21 02:00 Temperature Temperature Source Pulse Rate 88 83 81 Respiratory Rate 20 20 23 Blood Pressure 122/79 112/77 117/78 Blood Pressure Mean 93 88 91 Pulse Oximetry 94 92 93 Oxygen Delivery Method Room Air Room Air Room Air Oxygen Flow Rate Sepsis Recent Fever Within 48 Hours Sepsis New/Unexplained Change in Mental Status Sepsis Action Taken by Nursing 11/16/21 02:30 11/16/21 02:34 Temperature 36.8 C Temperature Source Oral Pulse Rate 73 Respiratory Rate 21 Blood Pressure 109/71 Blood Pressure Mean 83 Pulse Oximetry 92 Oxygen Delivery Method Room Air Oxygen Flow Rate Sepsis Recent Fever Within 48 Hours Sepsis New/Unexplained Change in Mental Status Sepsis Action Taken by Nursing VITALS: Vitals are noted on the nurse's note and reviewed by myself. Patient is febrile GENERAL: This is a 76-year-old white male, in no acute distress, nondiaphoretic, well-developed well-nourished. SKIN: The skin was without rashes, erythema, edema, or bruising. There is no tenting of the skin. Capillary refill less than 2 seconds. HEAD: Normocephalic atraumatic. EYES: Conjunctivae without injection, sclerae without icterus. NECK: Supple without nuchal rigidity. No lymphadenopathy. No JVD. HEART: Regular rate and rhythm without murmurs gallops or rubs. LUNGS: Clear to auscultation bilaterally without wheezes, rales or rhonchi. No retractions or accessory muscle use. ABDOMEN: Positive bowel sounds x 4. Soft, nontender, without masses or organomegaly. Morgan sign negative. No guarding or rebound tenderness. MUSCULOSKELETAL: No muscle atrophy, erythema, or edema noted. Full range of motion without joint tenderness in all extremities. No tenderness to palpation. Normal gait. Strength 5/5 throughout. NEURO: Patient was alert and oriented to person place and time. No focal neurological deficits. Course Course The patient was seen and evaluated as above. An order was placed for continuous cardiac monitoring. The monitor shows a normal sinus rhythm at a rate of 73 bpm. IV access obtained, labs drawn. Patient medicated with IV fluids and acetaminophen. Imaging performed and reviewed by myself and Dr. Nunes noted. Labs reviewed by myself. I discussed the findings with the patient at bedside. Recommended admission. The patient and were agreeable with I discussed the case with my attending. I discussed case with the explosive ordnance disposal manager. I discussed the case with Dr. Saleh, [facility]. She did agree to see and evaluate the patient Administered Medications Discontinued Medications Azithromycin (Azithromycin 250 Mg Tab) 500 mg PO NOW ONE Stop: 11/16/21 02:21 Last Admin: 11/16/21 02:32 Dose: 500 mg Documented by: [id number] Sodium Chloride (Nss) 500 mls @ 999 mls/hr IV .Q31M STA Stop: 11/16/21 00:35 Last Infusion: 11/16/21 02:14 Dose: 0 mls/hr Documented by: [id number] Admin: 11/16/21 01:15 Dose: 999 mls/hr Documented by: [id number] Acetaminophen (Ofirmev) 1,000 mg in 100 mls @ 400 mls/hr IV NOW STA Stop: 11/16/21 00:51 Last Infusion: 11/16/21 01:33 Dose: 0 mls/hr Documented by: [id number] Admin: 11/16/21 01:15 Dose: 400 mls/hr Documented by: [id number] Ceftriaxone Sodium (Rocephin) 1,000 mg in 50 mls @ 100 mls/hr IV NOW STA Stop: 11/16/21 02:49 Last Infusion: 11/16/21 03:08 Dose: 0 mls/hr Documented by: [id number] Admin: 11/16/21 02:32 Dose: 100 mls/hr Documented by: [id number] Medical Decision Making Differential Diagnosis Viral syndrome, otitis, pharyngitis, pneumonia, influenza, meningitis, urinary tract infection, sepsis, bacteremia, as well as other pathologies. Medical Records Attestation: I reviewed the patient's medical records. Home Medications Current Medication List: was personally reviewed by me Laboratory Data No leukocytosis, significant anemia, thrombocytopenia. Renal, hepatic function, and electrolytes without significant abnormality. Lactic acid 2.1. Troponin negative. Repeat lactic acid 1.2. Procalcitonin elevated 0.56. Influenza and COVID-19 testing negative. Urinalysis concerning for infection with 4+ bacteria and nitrates noted Result diagrams: 11/16/21 00:15 11/16/21 00:15 Lab Results 11/16/21 11/16/21 11/16/21 Range/Units 00:15 00:15 00:15 WBC 7.55 (4.8-10.8) K/uL RBC 3.40 L (4.7-6.1) M/uL Hgb 11.2 L (14.0-18.0) g/dL Hct 34.7 L (42-52) % MCV 102.1 H (80-100) fL MCH 32.9 (25-34) pg MCHC 32.3 (32-36) g/dL RDW Std Deviation 67.0 H (36.4-46.3) fL RDW Coeff of Eyal 17.9 H (11.5-14.5) % Plt Count 110 L (130-400) K/uL MPV 10.4 (7.4-10.4) fL Neutrophils % (Manual) 78.1 % Lymphocytes % (Manual) 3.5 % Monocytes % (Manual) 13.2 % Eosinophils % (Manual) 2.6 % Basophils % (Manual) 2.6 % Neutrophils # (Manual) 5.90 (1.4-6.5) K/uL Total Absolute Neuts 5.90 (1.4-6.5) K/uL Lymphocytes # (Manual) 0.26 L (1.2-3.4) K/uL Total Abs Lymphocytes 0.26 L (1.2-3.4) K/uL Monocytes # (Manual) 1.00 H (0.11-0.59) K/uL Eosinophils # (Manual) 0.20 (0-0.5) K/uL Basophils # (Manual) 0.20 (0-0.2) K/uL Dohle Bodies 1+ Sodium 138 (136-145) mmol/L Potassium 3.5 (3.5-5.1) mmol/L Chloride 107 (98-107) mmol/L Carbon Dioxide 23 (21-32) mmol/L Anion Gap 8 (3-11) BUN 18 (6-23) mg/dl Creatinine 0.99 (0.6-1.4) mg/dl Est Cr Clr Drug Dosing 75.3 ml/min Est GFR ( Amer) 85.4 ml/min Est GFR (Non-Af Amer) 73.7 ml/min BUN/Creatinine Ratio 18.2 (10-20) Glucose 104 H (70-99(Fasting)) mg/dl Lactate 2.1 H* (0.4-2.0) mmol/L Calcium 8.3 L (8.5-10.1) mg/dl Total Bilirubin 0.7 (0.2-1.0) mg/dl AST 8 L (13-39) U/L ALT 10 (7-52) U/L Alkaline Phosphatase 53 (34-104) U/L Troponin I < 0.03 (0-0.04) ng/ml Total Protein 5.2 L (6.0-8.3) gm/dl Albumin 3.3 L (3.4-5.0) gm/dl Globulin 1.9 L (2.5-4.0) gm/dl Albumin/Globulin Ratio 1.7 (0.9-2) Procalcitonin (0-0.5) ng/ml Urine Color Urine Appearance (Clear) Urine pH (4.5-7.5) Ur Specific Drifting (1.000-1.030) Urine Protein (Negative) Urine Glucose (UA) (Negative) Urine Ketones (Negative) Urine Blood (Negative) Urine Nitrite (Negative) Urine Bilirubin (Negative) Urine Urobilinogen (Negative) Ur Leukocyte Esterase (Negative) Urine WBC (Auto) (0-5) /hpf Urine RBC (Auto) (0-4) /hpf U Hyaline Cast (Auto) (0-5) /lpf U Epithel Cells (Auto) (0-5) /lpf Urine Bacteria (Auto) (Negative) Influ A Molecular Assay (Negative) Influ B Molecular Assay (Negative) SARS-CoV-2, RNA, NAAT (NEGATIVE) 11/16/21 11/16/21 11/16/21 Range/Units 00:15 00:19 00:19 WBC (4.8-10.8) K/uL RBC (4.7-6.1) M/uL Hgb (14.0-18.0) g/dL Hct (42-52) % MCV (80-100) fL MCH (25-34) pg MCHC (32-36) g/dL RDW Std Deviation (36.4-46.3) fL RDW Coeff of Eyal (11.5-14.5) % Plt Count (130-400) K/uL MPV (7.4-10.4) fL Neutrophils % (Manual) % Lymphocytes % (Manual) % Monocytes % (Manual) % Eosinophils % (Manual) % Basophils % (Manual) % Neutrophils # (Manual) (1.4-6.5) K/uL Total Absolute Neuts (1.4-6.5) K/uL Lymphocytes # (Manual) (1.2-3.4) K/uL Total Abs Lymphocytes (1.2-3.4) K/uL Monocytes # (Manual) (0.11-0.59) K/uL Eosinophils # (Manual) (0-0.5) K/uL Basophils # (Manual) (0-0.2) K/uL Dohle Bodies Sodium (136-145) mmol/L Potassium (3.5-5.1) mmol/L Chloride (98-107) mmol/L Carbon Dioxide (21-32) mmol/L Anion Gap (3-11) BUN (6-23) mg/dl Creatinine (0.6-1.4) mg/dl Est Cr Clr Drug Dosing ml/min Est GFR ( Amer) ml/min Est GFR (Non-Af Amer) ml/min BUN/Creatinine Ratio (10-20) Glucose (70-99(Fasting)) mg/dl Lactate (0.4-2.0) mmol/L Calcium (8.5-10.1) mg/dl Total Bilirubin (0.2-1.0) mg/dl AST (13-39) U/L ALT (7-52) U/L Alkaline Phosphatase (34-104) U/L Troponin I (0-0.04) ng/ml Total Protein (6.0-8.3) gm/dl Albumin (3.4-5.0) gm/dl Globulin (2.5-4.0) gm/dl Albumin/Globulin Ratio (0.9-2) Procalcitonin 0.56 H (0-0.5) ng/ml Urine Color Urine Appearance (Clear) Urine pH (4.5-7.5) Ur Specific Drifting (1.000-1.030) Urine Protein (Negative) Urine Glucose (UA) (Negative) Urine Ketones (Negative) Urine Blood (Negative) Urine Nitrite (Negative) Urine Bilirubin (Negative) Urine Urobilinogen (Negative) Ur Leukocyte Esterase (Negative) Urine WBC (Auto) (0-5) /hpf Urine RBC (Auto) (0-4) /hpf U Hyaline Cast (Auto) (0-5) /lpf U Epithel Cells (Auto) (0-5) /lpf Urine Bacteria (Auto) (Negative) Influ A Molecular Assay Negative (Negative) Influ B Molecular Assay Negative (Negative) SARS-CoV-2, RNA, NAAT NEGATIVE (NEGATIVE) 11/16/21 11/16/21 Range/Units 00:30 02:08 WBC (4.8-10.8) K/uL RBC (4.7-6.1) M/uL Hgb (14.0-18.0) g/dL Hct (42-52) % MCV (80-100) fL MCH (25-34) pg MCHC (32-36) g/dL RDW Std Deviation (36.4-46.3) fL RDW Coeff of Eyal (11.5-14.5) % Plt Count (130-400) K/uL MPV (7.4-10.4) fL Neutrophils % (Manual) % Lymphocytes % (Manual) % Monocytes % (Manual) % Eosinophils % (Manual) % Basophils % (Manual) % Neutrophils # (Manual) (1.4-6.5) K/uL Total Absolute Neuts (1.4-6.5) K/uL Lymphocytes # (Manual) (1.2-3.4) K/uL Total Abs Lymphocytes (1.2-3.4) K/uL Monocytes # (Manual) (0.11-0.59) K/uL Eosinophils # (Manual) (0-0.5) K/uL Basophils # (Manual) (0-0.2) K/uL Dohle Bodies Sodium (136-145) mmol/L Potassium (3.5-5.1) mmol/L Chloride (98-107) mmol/L Carbon Dioxide (21-32) mmol/L Anion Gap (3-11) BUN (6-23) mg/dl Creatinine (0.6-1.4) mg/dl Est Cr Clr Drug Dosing ml/min Est GFR ( Amer) ml/min Est GFR (Non-Af Amer) ml/min BUN/Creatinine Ratio (10-20) Glucose (70-99(Fasting)) mg/dl Lactate 1.2 (0.4-2.0) mmol/L Calcium (8.5-10.1) mg/dl Total Bilirubin (0.2-1.0) mg/dl AST (13-39) U/L ALT (7-52) U/L Alkaline Phosphatase (34-104) U/L Troponin I (0-0.04) ng/ml Total Protein (6.0-8.3) gm/dl Albumin (3.4-5.0) gm/dl Globulin (2.5-4.0) gm/dl Albumin/Globulin Ratio (0.9-2) Procalcitonin (0-0.5) ng/ml Urine Color Yellow Urine Appearance Cloudy A (Clear) Urine pH 5.0 (4.5-7.5) Ur Specific Drifting 1.016 (1.000-1.030) Urine Protein 1+ H (Negative) Urine Glucose (UA) Negative (Negative) Urine Ketones Trace H (Negative) Urine Blood 3+ H (Negative) Urine Nitrite Positive A (Negative) Urine Bilirubin Negative (Negative) Urine Urobilinogen Negative (Negative) Ur Leukocyte Esterase 2+ H (Negative) Urine WBC (Auto) >30 H (0-5) /hpf Urine RBC (Auto) 0-4 (0-4) /hpf U Hyaline Cast (Auto) 5-10 H (0-5) /lpf U Epithel Cells (Auto) 5-10 H (0-5) /lpf Urine Bacteria (Auto) 4+ H (Negative) Influ A Molecular Assay (Negative) Influ B Molecular Assay (Negative) SARS-CoV-2, RNA, NAAT (NEGATIVE) Imaging Data My Impression: Chest x-ray, reviewed by myself: Concern for left lower lobe infiltrate ECG Data Attestation: I personally reviewed and interpreted this ECG as follows: Indication: + SOB/dyspnea Rate (beats per minute): 97 Rhythm: + sinus rhythm ECG ST segments: no ST depression, no ST elevation or no T-wave inversions ECG Findings: + PACs Blood Pressure Blood Pressure Findings: Normal blood pressure MDM Narrative This 76-year-old male patient presents to the emergency department today for evaluation of chills, shortness of breath, was found to have a fever. He is also been having some urinary frequency. Work-up here in the ED concerning for left lower lobe pneumonia and UTI. The patient was started on IV antibiotics. He was gently hydrated with IV fluids. Will be admitted to the [facility] service regarding his infection. Please see hospitalist dictation regarding ongoing management and care of this patient. The chart was completed utilizing [employer] Speech voice recognition software. Grammatical errors, random word insertions, pronoun errors, and incomplete sentences are an occasional consequence of this system due to software limitations, ambient noise, and hardware issues. Any formal questions or concerns about the content, text, or information contained within the body of this dictation should be directly addressed to the provider for clarification. Impression & Plan Pneumonia, Fever, Shortness of breath, Acute UTI Discharge Plan Visit Data Chief Complaint: Shortness of Breath/Dyspnea Stated Complaint: sob ED Provider: Gabriela Nunes ED Midlevel Provider: Claudia Nguyen Discharge Problem: Pneumonia, Fever, Shortness of breath, Acute UTI Patient Disposition: Admitted As Inpatient Forms Stand Alone Forms: My [facility] Prescriptions Prescriptions: No Action acetaminophen [Acetaminophen Extra Strength] 500 mg Tablet 1,000 mg PO Q8 PRN (Reason: Fever Or Pain) RF: 0 polyethylene glycol 3350 [Miralax] 17 gram/dose Powder 17 g PO DAILY PRN (Reason: Constipation) RF: 0 daratumumab 20 mg/mL Solution 0 mg IV MONTHLY RF: 0 pomalidomide 4 mg capsule 4 mg PO DIRECTED RF: 0 warfarin 3 mg tablet See Rx Instructions PO UD RF: 0 furosemide [Lasix] 20 mg tablet 20 mg PO QAM RF: 0 potassium citrate [Urocit-K 10] 10 mEq (1,080 mg) tablet extended release 10 meq PO BID 90 Days Qty: 180 RF: 3 allopurinol 100 mg tablet 100 mg PO BID Qty: 180 RF: 3 levalbuterol tartrate 45 mcg/actuation HFA aerosol inhaler 1 puffs INH Q6H PRN (Reason: shortness of breath) Qty: 15 RF: 1 acyclovir 400 mg Tablet 400 mg PO BID RF: 0 Neulasta Onpro 6 mg/0.6 mL Syringe, W/ Wearable Injector 6 mg subcut DIRECTED RF: 0 montelukast [Singulair] 10 mg tablet 10 mg PO DAILY PRN (Reason: Allergy Symptoms) RF: 0 citalopram 10 mg tablet 10 mg PO QAM RF: 0 zoledronic acid 4 mg/5 mL Solution 0 mg IV .Q 3 MONTHS RF: 0 Breo Ellipta 200-25 mcg/dose Blister With Device 1 inh INHALATION QAM RF: 0 dutasteride 0.5 mg capsule 0.5 mg PO QAM RF: 0 dexamethasone 4 mg tablet 8 mg PO DIRECTED RF: 0 Referrals Referrals: Corazon Vargas MD [Primary Care Provider] -
[2021-11-16 00:41] LABS: Appearance Urine Cloudy (Clear); Bacteria Urine Automated 4+ (Negative); Bilirubin Urine Negative (Negative); Blood Urine 3+ (Negative); Color Urine Yellow; Glucose Urine UA Negative (Negative); Ketones Urine Trace (Negative); Leukocyte Esterase Urine 2+ (Negative); Nitrite Urine Positive (Negative); Protein Urine 1+ (Negative); RBC Urine Automated 0-4 /hpf (0-4); Specific Gravity Urine 1.016 (1.000-1.030); Urobilinogen Urine Negative (Negative); WBC Urine Automated >30 /hpf (0-5)
[2021-11-16 00:53] LABS: Influenza A virus by PCR Negative (Negative); Influenza B virus by PCR Negative (Negative)
[2021-11-16 00:54] LABS: Alanine Aminotransferase 10 U/L (7-52); Albumin Globulin Ratio 1.7 (0.9-2); Albumin Level 3.3 gm/dl (3.4-5.0); Alkaline Phosphatase 53 U/L (34-104); Anion Gap 8 (3-11); Aspartate Aminotransferase 8 U/L (13-39); BUN Creatinine Ratio 18.2 (10-20); Bilirubin,Total 0.7 mg/dl (0.2-1.0); Blood Urea Nitrogen 18 mg/dl (6-23); Calcium 8.3 mg/dl (8.5-10.1); Carbon Dioxide 23 mmol/L (21-32); Chloride 107 mmol/L (98-107); Creatinine Clr Calc Pharmacy 75.3 ml/min; Est GFR (African American) 85.4 ml/min; Est GFR (Non-African American) 73.7 ml/min; Globulin 1.9 gm/dl (2.5-4.0); Glucose 104 mg/dl (70-99(Fasting)); Potassium 3.5 mmol/L (3.5-5.1); Sodium 138 mmol/L (136-145); Total Protein 5.2 gm/dl (6.0-8.3)
[2021-11-16 00:55] LABS: Troponin I < 0.03 ng/ml (0-0.04)
[2021-11-16 02:20] LABS: ALC (manual) 0.26 K/uL (1.2-3.4); Basophils % (manual) 2.6 %; Dohle Bodies 1+; Eosinophils % (manual) 2.6 %; Lymphocytes # (manual) 0.26 K/uL (1.2-3.4); Lymphocytes % (manual) 3.5 %; Monocytes % (manual) 13.2 %; Neutrophils % (manual) 78.1 %
[2021-11-16] MEDS ORDERED: AZITHROMYCIN 250 MG TAB PO ONE (02:20)
[2021-11-16] MEDS ORDERED: cefTRIAXone SODIUM 1,000 MG/50 ML BAG IV STA (02:20)
[2021-11-16] MEDS ORDERED: MAGNESIUM HYDROXIDE SUSP 30 ML UDC PO PRN (03:39)
[2021-11-16] MEDS ORDERED: MONTELUKAST SODIUM 10 MG TABLET PO PRN (03:39)
[2021-11-16] MEDS ORDERED: LEVALBUTEROL TARTRATE 15 GM HFA.AER.AD INH PRN (03:39)
[2021-11-16] MEDS ORDERED: WARFARIN SOD 3 MG TAB PO SCH (03:39)
[2021-11-16] MEDS ORDERED: POLYETHYLENE (MIRALAX) 17 GM PACK PO PRN (03:39)
[2021-11-16] MEDS ORDERED: ALUMINUM/MAGNESIUM SUSP 30 ML UDC PO PRN (03:39)
[2021-11-16] MEDS ORDERED: ONDANSETRON INJ 2 MG/ML 2 ML VIAL IV PRN (03:39)
--- NOTE | 2021-11-16 03:46 | History & Physical Report ---
Date of Service November 16, 2021 Assessment & Plan (1) Acute UTI: Plan: 76yo male with a PMH significant for multiple myeloma (diagnosed 2015, on chronic chemotherapy), history of PE (on warfarin), pneumothorax (2019 with lung biopsy), gout, BPH, and GERD presents with a one-day history of fatigue, chills, confusion, mild SOB, and urinary frequency. Hypoxia, SOB Patient with chronic mild SOB (which began when he started chemotherapy) with slight worsening over the past day EMS reports patient was satting in mid-80s on arrival; now satting fine on room air CXR on admission concerning for pneumonia Ceftriaxone as above Azithromycin 500mg daily x3 days Continue home inhaler regimen Continuous pulse ox Urinary frequency, chills, confusion Likely secondary to acute complicated cystitis with UA on admission grossly infected; differential also includes pneumonia (below) Ceftriaxone IV 2g daily (2g due to patient being over 100kg) History of PE Continue home warfarin History of diastolic dysfunction Patient noted with history of diastolic dysfunction, though most recent echo (10/21/21) did not reflect this Patient with mild crackles at bases of lungs but very little LE edema; low suspicion for HF exacerbation at this time BNP level ordered Continue home lasix Multiple myeloma Continue home regimen Patient takes dexamethasone 8mg once weekly on on the weeks he does not have chemotherapy BPH Continue home dutasteride Recent cataract surgery Continue prednisone eye drops (right eye - once daily, left eye - three times daily) Gout Continue home allopurinol Depression Continue home citalopram FEN: heart healthy diet Code status: DNR/DNI DVT ppx: home warfarin Case management: consulted for routine DC planning Dispo: med/surg (2) Anemia: (3) BPH loc w urin obs/LUTS: (4) Cancer: (5) Current use of custodial anticoagulation: (6) Diastolic dysfunction: (7) GERD (gastroesophageal reflux disease): (8) Multiple myeloma: (9) SOB (shortness of breath) on exertion: History of Present Illness Primary Care Provider: Corazon Vargas MD 76yo male with a PMH significant for multiple myeloma (diagnosed 2015, on chronic chemotherapy), history of PE (on warfarin), pneumothorax (2019 with lung biopsy), gout, BPH, and GERD presents with a one-day history of fatigue, chills, confusion, mild SOB, and urinary frequency. Symptoms began yesterday morning with fatigue, chills, and shivering. Patient laid down to rest for a few hours, but then when he woke up in the late afternoon, patient's notes he had some confusion - patient thought [place] had [place] that [place]. Patient also notes mildly increased SOB and increased urinary frequency over the past day. Patient denies fever, headache, chest pain, abdominal pain, nausea, vomiting, diarrhea, or other symptoms. Allergies Allergy/AdvReac Type Severity Reaction Status Date / Time dexamethasone AdvReac Severe Hallucinati Verified 11/16/21 02:14 on meclizine AdvReac Intermediate HALLUCINATI Verified 11/16/21 02:14 ON hydrocodone AdvReac Mild AGITATION Verified 11/16/21 02:14 levofloxacin [From Levaquin] AdvReac Mild muscle Verified 11/16/21 02:14 weakness lisinopril AdvReac Mild Dizziness Verified 11/16/21 02:14 Home Medications Medication Instructions Recorded Confirmed Type acetaminophen 500 mg tablet 1,000 mg PO Q8 PRN 06/28/18 11/16/21 History (Acetaminophen Extra Strength) daratumumab 20 mg/mL intravenous 0 mg IV MONTHLY 06/28/18 11/16/21 History solution polyethylene glycol 3350 17 17 g PO DAILY PRN 06/28/18 11/16/21 History gram/dose oral powder (Miralax) pomalidomide 4 mg capsule 4 mg PO DIRECTED 06/29/18 11/16/21 History acyclovir 400 mg tablet 400 mg PO BID 08/02/18 11/16/21 History pegfilgrastim 6 mg/0.6 mL 6 mg SUBCUT DIRECTED 08/02/18 11/16/21 History (deliverable) wearable subcutaneous injector (Neulasta Onpro) citalopram 10 mg tablet 10 mg PO QAM 04/25/19 11/16/21 History zoledronic acid 4 mg/5 mL 0 mg IV .Q 3 MONTHS 04/25/19 11/16/21 History intravenous solution levalbuterol tartrate 45 1 puffs INH Q6H PRN #15 gm 12/05/19 11/16/21 Rx mcg/actuation aerosol inhaler montelukast 10 mg tablet 10 mg PO DAILY PRN tab 07/25/20 11/16/21 History (Singulair) allopurinol 100 mg tablet 100 mg PO BID #180 tab 02/25/21 11/16/21 Rx potassium citrate 10 mEq (1,080 10 meq PO BID 90 Days #180 tab 02/25/21 11/16/21 Rx mg) tablet,extended release (Urocit-K 10) furosemide 20 mg tablet (Lasix) 20 mg PO QAM 02/28/21 11/16/21 History warfarin 3 mg tablet See Rx Instructions PO UD tab 09/08/21 11/16/21 History dutasteride 0.5 mg capsule 0.5 mg PO QAM 10/15/21 11/16/21 History fluticasone furoate 200 1 inh INHALATION QAM 10/15/21 11/16/21 History mcg-vilanterol 25 mcg/dose inhalation powder (Breo Ellipta) dexamethasone 4 mg tablet 8 mg PO DIRECTED 11/16/21 11/16/21 History Past Med/Surg History Medical History Anemia BASELINE 8-9 RANGE Cancer MULTIPLE MYELOMA (DX'D 2015); stem cell transplant, chemo Depression GERD (gastroesophageal reflux disease) History of nephrolithiasis History of pneumothorax 2019 with lung biopsy [place] (hard of hearing) Irregular heartbeat Osteoporosis 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 Port-A-Cath in place Left chest Pulmonary embolism 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); 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 SOB (shortness of breath) on exertion Thrombocytopenia Tremor Surgical History Bone marrow replaced by transplant History of cataract surgery RT History of chest tube placement History of lung biopsy benign Family History Father Cardiac disorder Mother Cancer Stroke Other No family history of adverse response to anesthesia Social History Smoking Status: Never smoker Second Hand Exposure: No; Hx Alcohol Use: No Hx Substance Use: No Preferred Language: German Communication Ability: Effective Visual Impairment: No Limitations 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 Beliefs That Will Affect Care: None marital status: Current Living Situation: Spouse How many Children do You have: 1 Feels Safe at Home: Yes Safety Concerns: Feels Safe At This Time Assistive Devices: None Review of Systems Review of Systems: See HPI Physical Exam Physical Exam: Constitutional: tired-appearing, no acute distress HEENT: NCAT, no conjunctival injection, MMM CV: regular rhythm, no murmur appreciated, extremities well-perfused, 1+ edema of the RLE, trace edema of the LLE Resp: lung sounds distant, faint crackles at the bases, no wheezes or rhonchi appreciated GI: soft, nondistended, nontender, BS normoactive Skin: several healing abrasions noted on arm and chest (per patient, healing wounds from recent Mohs surgery) Neuro: alert, oriented, CN2-12 grossly intact, no focal neurologic deficit appreciated Results & Data Results & Data ([facility]) Vital Signs (Past 12 Hours) Vital Signs Temp Pulse Resp BP Pulse Ox 11/16/21 03:08 75 20 110/63 95 11/16/21 02:34 36.8 C 11/16/21 02:30 73 21 109/71 92 11/16/21 02:00 81 23 117/78 93 11/16/21 01:30 83 20 112/77 92 11/16/21 01:00 88 20 122/79 94 11/16/21 00:30 94 H 22 127/75 93 11/16/21 00:00 93 H 24 124/76 96 11/15/21 23:48 38.2 C H 96 H 24 134/80 94 Code Status & VTE Plan VTE Prophylaxis Plan VTE Prophylaxis will be ordered: Yes Supervising Physician Co-Signing Physician Notes Patient see and examined, chart reviewed, case discussed with Dr. Cosme and I agree with the assessment and plan as documented above. In brief, patient is a 76yo male with hisory of multiple myeloma on chemotherapy presenting with chills, fatigue, confusion and mild SOB as well as urinary frequency. Febrile on arrival at 38.2 wtih HR of 96, saturation in the 80's by EMT, breathing comfortably here with adequate saturation on NC now RA Skin - intact HEENT - NC/AT, PERRL, MMM, neck supple Heart - +S1/S2, regular Lungs - minimal crackles in bilateral bases Abd -+BS, soft, NT/ND Ext - warm, well perfused Labs and images reviewed Elevated procalcitonin UA suggestive of infection CXR appears to have patchy bilateral airspace disease, mostly in left lower lung Assessment/Plan - 76yo male with history of multiple myeloma, immunocompromised on chemotherapy presenting with chills, confusion, fatigue. 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
[2021-11-16] MEDS ORDERED: ACETAMINOPHEN 500 MG TAB PO PRN (04:42)
[2021-11-16 05:59] LABS: INR 2.4 (0.9-1.1); Prothrombin Time 22.7 Seconds (9.0-12.0)
[2021-11-16] MEDS: CITALOPRAM 20 MG TAB PO SCH (07:56)
[2021-11-16] MEDS: FUROSEMIDE 20 MG TAB PO SCH (07:57)
[2021-11-16] MEDS: allopurinoL 100 MG TAB PO SCH ×2 (07:57→19:43)
[2021-11-16] MEDS: ACYCLOVIR 400 MG TAB PO SCH ×2 (07:57→19:44)
[2021-11-16] MEDS: POTASSIUM CITRATE 10 MEQ TAB PO SCH ×2 (07:58→19:43)
[2021-11-16] MEDS: FLUTICASONE/VILANTEROL 200/25MCG 14 PUFFS/INHALER INH SCH (08:00)
[2021-11-16] MEDS: AVODART~ORDER AWAITING ACTION SCH ×3 (08:01→21:26)
[2021-11-16] MEDS: prednisoLONE acetate 1% OP SUSP 5 ML BTL OPR SCH (08:01)
[2021-11-16] MEDS: prednisoLONE acetate 1% OP SUSP 5 ML BTL OPL SCH ×3 (08:01→19:44)
[2021-11-16] MEDS ORDERED: prednisoLONE acetate 1% OP SUSP 5 ML BTL OTR SCH (09:00)
[2021-11-16] MEDS ORDERED: NON-FORMULARY MEDICATION (Citalopram 10 mg tablet) PO SCH (09:00)
[2021-11-16] MEDS ORDERED: prednisoLONE acetate 1% OP SUSP 5 ML BTL OTL SCH (09:00)
[2021-11-16] MEDS ORDERED: HEPARIN 100 UNIT/ML 5ML FLUSH ONE (09:18)
--- NOTE | 2021-11-16 09:50 | XRay Report ---
XR chest 1V portable CLINICAL HISTORY: Fever TECHNIQUE: Single frontal radiograph of the chest was obtained. Comparison: Comparison is made to chest 2 views 12/02/2019 FINDINGS: There is a stable port catheter. The cardiomediastinal silhouette is normal. Lungs are underinflated. Patchy airspace opacities are seen most prominent in the left lower lung and right upper lung. No ev idence of pleural effusion or pneumothorax. IMPRESSION: Patchy airspace opacities may represent atelectasis, pneumonia, and/or aspiration. ACT 112: Negative or not required by law. Electronically signed by: Bart Pace M.D. 11/16/2021 9:49 AM
[2021-11-16] MEDS ORDERED: HEPARIN 100 UNIT/ML 5ML FLUSH FLUSH PRN (09:55)
--- NOTE | 2021-11-16 13:38 | CT Scan Report ---
CT abd pelvis wo con CLINICAL HISTORY: R/o Uric Acid Stone causing obstruction wants it w/o TECHNIQUE: Helical axial images of the abdomen and pelvis were obtained. Automated dose lowering tech niques and/or adjustment according to patient size were utilized for this exam. This exam was perfor med without intravenous contrast. COMPARISON: None available at the time of this dictation. FINDINGS: Lower chest: Bibasilar atelectasis versus scarring is seen. Liver: Unremarkable. No focal lesions are seen. Gallbladder and biliary tree: There is a tiny focus of air in the gallbladder. No intra- or extrahepa tic biliary ductal dilation. Pancreas: Unremarkable, no focal lesions. Spleen: Unremarkable. Adrenals: Unremarkable. Kidneys and ureters: Perinephric stranding is noted bilaterally. No evidence of hydronephrosis or hyd roureter. Bladder: Unremarkable. Reproductive organs: Prostatomegaly is seen. Bowel: Diverticulosis is seen without evidence of diverticulitis. The appendix is normal. A hiatal he rnia is seen. Lymph nodes Retroperitoneal: Unremarkable. Mesenteric: Unremarkable. Pelvic: Unremarkable. Peritoneum: Normal. Vessels: Atherosclerotic calcifications are seen. Abdominal wall: Unremarkable. Bones: Demineralization and lucencies are seen in the bones. Multilevel degenerative changes are seen in the spine. IMPRESSION: 1. No evidence of urinary calculi. No hydronephrosis or hydroureter. 2. 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 ACT 112: Negative or not required by law. Electronically signed by: Bart Pace M.D. 11/16/2021 1:37 PM
--- NOTE | 2021-11-16 15:54 | Hospitalist Progress Note ---
Date of Service November 16, 2021 Assessment & Plan (1) Acute UTI: Plan: 76yo male with a PMH significant for multiple myeloma (diagnosed 2015, on chronic chemotherapy), history of PE (on warfarin), pneumothorax (2019 with lung biopsy), gout, BPH, and GERD presents with a one-day history of fatigue, chills, confusion, mild SOB, and urinary frequency. Pt is clinically stable. Metabolic encephalopathy sec to UTI Mentation clearing Sec to UTI/Pneumonia UTI -acute complicated cystitis with UA on admission grossly infected; -Likely secondary to history of enlarged prostate -Ceftriaxone IV 2g daily (2g due to patient being over 100kg) -Urine and blood cultures pending -Due to history of uric acid stones uric acid level and CT abdomen pelvis performed to evaluate for uric acid stone -CT negative for uric acid stone, uric acid at 3.3 -Ordered for post void residual volume, pending Hypoxia, SOB - Patient with chronic mild SOB (which began when he started chemotherapy) with slight worsening over the past day - EMS reports patient was satting in mid-80s on arrival; now satting fine on room air - CXR on admission concerning for pneumonia - Ceftriaxone as above - Azithromycin 500mg daily x3 days - Continue home inhaler regimen - Continuous pulse ox History of PE - Continue home warfarin -INR within goal at 2.4 History of diastolic dysfunction - Patient noted with history of diastolic dysfunction, though most recent echo (10/21/21) did not reflect this - Patient with mild crackles at bases of lungs but very little LE edema; low suspicion for HF exacerbation at this time - BNP level ordered - Continue home lasix Multiple myeloma - Continue home regimen - Patient takes dexamethasone 8mg once weekly on on the weeks he does not have chemotherapy BPH - Continue home dutasteride Recent cataract surgery - Continue prednisone eye drops (right eye - once daily, left eye - three times daily) Gout - Continue home allopurinol Depression - Continue home citalopram FEN: heart healthy diet Code status: DNR/DNI DVT ppx: home warfarin Case management: consulted for routine DC planning Dispo: med/surg (2) Anemia: (3) BPH loc w urin obs/LUTS: (4) Cancer: (5) 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 Simons findings and care plan. Subjective Patient seen at bedside this morning. Patient overall feels well and seems to be having good mentation today. No overnight events reported. Went through patient's chart background and did see that the patient does have a history of uric acid stones that were noted in [address] This was confirmed with him today. He has routine follow-up with a urologist for BPH and gout. Patient reports he has never had a urinary tract infection before. Patient has no other complaints at this time. Review of Systems Review of Systems: All systems reviewed & are unremarkable except as noted in HPI & below Physical Exam Physical Exam: Constitutional: tired-appearing, no acute distress HEENT: NCAT, no conjunctival injection, MMM CV: regular rhythm, no murmur appreciated, extremities well-perfused, 1+ edema of the RLE, trace edema of the LLE Resp: lung sounds distant, faint crackles at the bases, no wheezes or rhonchi appreciated GI: soft, nondistended, nontender, BS normoactive Skin: several healing abrasions noted on arm and chest (per patient, healing wou nds from recent Mohs surgery) Neuro: alert, oriented, CN2-12 grossly intact, no focal neurologic deficit appreciated Results & Data Results & Data ([facility]) Vital Signs (Past 12 Hours) Vital Signs Temp Pulse Pulse Resp BP BP Pulse Ox 11/16/21 15:00 36.7 C 64 18 136/96 94 11/16/21 07:40 36.5 C 64 18 104/60 92 11/16/21 06:30 11/16/21 06:13 36.9 C 57 L 18 129/6 L 96 11/16/21 05:00 67 16 140/65 94 11/16/21 04:30 64 19 121/65 95 11/16/21 04:01 66 20 107/72 94 Pulse Ox 11/16/21 15:00 11/16/21 07:40 11/16/21 06:30 96 11/16/21 06:13 11/16/21 05:00 11/16/21 04:30 11/16/21 04:01 Resident Activity Tracking Resident Involvement: Resident Care Provided Care Provided: Adult Hospital Medicine
[2021-11-16] MEDS ORDERED: WARFARIN SOD 0.5 MG TAB PO SCH (16:00)
--- NOTE | 2021-11-16 18:55 | Billing Data ---
Date of Service November 16, 2021 Coding Level of Care Code 90288 Initial Inpt Care Lvl 3
[2021-11-16] MEDS ORDERED: POMALIDOMIDE 4 MG PO SCH (21:00)
[2021-11-17] MEDS ORDERED: cefTRIAXone SODIUM 2,000 MG in DEXTROSE 5% 50 ML IV SCH (06:00)
[2021-11-17 08:58] LABS: Hematocrit (blood only) 33.5 % (42-52); Hemoglobin 10.7 g/dL (14.0-18.0); Mean Corpuscular Hemoglobin 32.7 pg (25-34); Mean Corpuscular Hgb Conc 31.9 g/dL (32-36); Mean Corpuscular Volume 102.4 fL (80-100); RDW Coefficient of Variation 17.5 % (11.5-14.5); RDW Standard Deviation 66.4 fL (36.4-46.3); Red Blood Count 3.27 M/uL (4.7-6.1); White Blood Count 9.37 K/uL (4.8-10.8)
[2021-11-17] MEDS ORDERED: AZITHROMYCIN 250 MG TAB PO SCH (09:00)
[2021-11-17 09:14] LABS: INR 2.4 (0.9-1.1); Prothrombin Time 22.7 Seconds (9.0-12.0)
[2021-11-17 09:17] LABS: BUN Creatinine Ratio 21.5 (10-20); Calcium 8.2 mg/dl (8.5-10.1); Creatinine Clr Calc Pharmacy 94.7 ml/min; Est GFR (African American) 101.1 ml/min; Est GFR (Non-African American) 87.2 ml/min; Potassium 3.7 mmol/L (3.5-5.1)
[2021-11-17 09:24] LABS: Basophils # (auto) 0.04 K/uL (0-0.2); Basophils % (auto) 0.4 %; Eosinophils # (auto) 0.81 K/uL (0-0.5); Eosinophils % (auto) 8.6 %; Immature Granulocytes # (auto) 0.09 K/uL (0.00-0.02); Lymphocytes # (auto) 1.04 K/uL (1.2-3.4); Lymphocytes % (auto) 11.1 %; Mean Platelet Volume 11.6 fL (7.4-10.4); Monocytes # (auto) 1.32 K/uL (0.11-0.59); Monocytes % (auto) 14.1 %; Neutrophils # (auto) 6.07 K/uL (1.4-6.5); Neutrophils % (auto) 64.8 %; Platelet Count 96 K/uL (130-400); Platelet Estimate Decreased (Normal)
[2021-11-17] MEDS: FLUTICASONE/VILANTEROL 200/25MCG 14 PUFFS/INHALER INH SCH (09:31)
[2021-11-17] MEDS: ACYCLOVIR 400 MG TAB PO SCH (09:33)
[2021-11-17] MEDS: CITALOPRAM 20 MG TAB PO SCH (09:34)
[2021-11-17] MEDS: FUROSEMIDE 20 MG TAB PO SCH (09:37)
[2021-11-17] MEDS: POTASSIUM CITRATE 10 MEQ TAB PO SCH (09:37)
[2021-11-17] MEDS: allopurinoL 100 MG TAB PO SCH (09:37)
[2021-11-17] MEDS: prednisoLONE acetate 1% OP SUSP 5 ML BTL OPL SCH ×2 (09:38→14:17)
[2021-11-17] MEDS: prednisoLONE acetate 1% OP SUSP 5 ML BTL OPR SCH (09:39)
--- NOTE | 2021-11-17 11:01 | Hospitalist Progress Note ---
Date of Service November 17, 2021 Assessment & Plan (1) Acute UTI: Plan: 76yo male with a PMH significant for multiple myeloma (diagnosed 2015, on chronic chemotherapy), history of PE (on warfarin), pneumothorax (2019 with lung biopsy), gout, BPH, and GERD presents with a one-day history of fatigue, chills, confusion, mild SOB, and urinary frequency. Pt is clinically stable. Urinary frequency, chills, confusion -Likely secondary to acute complicated cystitis with UA on admission grossly infected; differential also includes pneumonia (below) -Likely secondary to history of enlarged prostate -Ceftriaxone IV 2g daily (2g due to patient being over 100kg) -Urine and blood cultures pending -Due to history of uric acid stones uric acid level and CT abdomen pelvis performed to evaluate for uric acid stone -CT negative for uric acid stone, uric acid at 3.3 -Ordered for post void residual volume, pending Hypoxia, SOB - Patient with chronic mild SOB (which began when he started chemotherapy) with slight worsening over the past day - EMS reports patient was satting in mid-80s on arrival; now satting fine on room air - CXR on admission concerning for pneumonia - Ceftriaxone as above - Azithromycin 500mg daily x3 days - Continue home inhaler regimen - Continuous pulse ox History of PE - Continue home warfarin -INR within goal at 2.4 History of diastolic dysfunction - Patient noted with history of diastolic dysfunction, though most recent echo (10/21/21) did not reflect this - Patient with mild crackles at bases of lungs but very little LE edema; low s uspicion for HF exacerbation at this time - BNP level ordered - Continue home lasix Multiple myeloma - Continue home regimen - Patient takes dexamethasone 8mg once weekly on on the weeks he does not have chemotherapy BPH - Continue home dutasteride Recent cataract surgery - Continue prednisone eye drops (right eye - once daily, left eye - three times daily) Gout - Continue home allopurinol Depression - Continue home citalopram FEN: heart healthy diet Code status: DNR/DNI DVT ppx: home warfarin Case management: consulted for routine DC planning Dispo: med/surg (2) Anemia: (3) BPH loc w urin obs/LUTS: (4) Cancer: (5) 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
[2021-11-17] MEDS: AVODART~ORDER AWAITING ACTION SCH (11:35)
--- NOTE | 2021-11-17 14:35 | Discharge Summary ---
Date of Service November 17, 2021 Admission HPI Per Admitting Provider 76yo male with a PMH significant for multiple myeloma (diagnosed 2015, on chronic chemotherapy), history of PE (on warfarin), pneumothorax (2019 with lung biopsy), gout, BPH, and GERD presents with a one-day history of fatigue, chills, confusion, mild SOB, and urinary frequency. Symptoms began yesterday morning with fatigue, chills, and shivering. Patient laid down to rest for a few hours, but then when he woke up in the late afternoon, patient's notes he had some confusion - patient thought [place] had [place] working [place] that morning. Patient also notes mildly increased SOB and increased urinary frequency over the past day. Patient denies fever, headache, chest pain, abdominal pain, nausea, vomiting, diarrhea, or other symptoms. Admission Exam Per Admitting Provider Constitutional: tired-appearing, no acute distress HEENT: NCAT, no conjunctival injection, MMM CV: regular rhythm, no murmur appreciated, extremities well-perfused, 1+ edema of the RLE, trace edema of the LLE Resp: lung sounds distant, faint crackles at the bases, no wheezes or rhonchi appreciated GI: soft, nondistended, nontender, BS normoactive Skin: several healing abrasions noted on arm and chest (per patient, healing wounds from recent Mohs surgery) Neuro: alert, oriented, CN2-12 grossly intact, no focal neurologic deficit appreciated Principal Diagnosis Urinary tract infection Discharge Exam Constitutional: well-appearing, no acute distress HEENT: NCAT, no conjunctival injection, moist mucous membranes CV: regular rhythm, no murmur appreciated, extremities well-perfused, trace edema of b/l LE Resp: lung sounds largely clear, faint crackles at the bases, no wheezes or rhonchi appreciated GI: soft, nondistended, nontender Rectal: enlarged, firm prostate but nontender, not boggy Skin: several healing abrasions noted on arm and chest (per patient, healing wounds from recent Mohs surgery) Neuro: alert, oriented, CN2-12 grossly intact, no focal neurologic deficit appreciated Discharge Data Allergies Allergy/AdvReac Type Severity Reaction Status Date / Time dexamethasone AdvReac Severe Hallucinati Verified 11/16/21 02:14 on meclizine AdvReac Intermediate HALLUCINATI Verified 11/16/21 02:14 ON hydrocodone AdvReac Mild AGITATION Verified 11/16/21 02:14 levofloxacin [From Levaquin] AdvReac Mild muscle Verified 11/16/21 02:14 weakness lisinopril AdvReac Mild Dizziness Verified 11/16/21 02:14 Consultations 11/16/21 02:48 ED Decision to Admit Stat Ordered Studies 11/16/21 09:35 CT abd pelvis wo con Routine Hospital Course (1) Acute UTI: 76yo male with a PMH significant for multiple myeloma (diagnosed 2015, on chronic chemotherapy), history of PE (on warfarin), pneumothorax (2019 with lung biopsy), gout, BPH, and GERD presents with a one-day history of fatigue, chills, confusion, mild SOB, and urinary frequency. Pt is clinically stable. Urinary frequency, chills, confusion -Likely secondary to acute complicated cystitis with UA on admission grossly infected; differential also includes pneumonia (below) -Likely secondary to history of enlarged prostate, though exam reassuring against prostatitis -Ceftriaxone IV 2g daily (2g due to patient being over 100kg), significant clinical improvement and resolution of AMS noted -Due to history of uric acid stones uric acid level and CT abdomen pelvis performed to evaluate for uric acid stone -CT negative for uric acid stone, uric acid at 3.3 -Urine and blood cultures still pending at time of discharge -Discharged on Cefdinir to complete 10 day abx course Hypoxia, SOB - Patient with chronic mild SOB (which began when he started chemotherapy) with slight worsening over the past day - EMS reports patient was saturating in mid-80s on arrival; subsequently had 90+ O2 saturation on RA with ambulation as well - CXR on admission concerning for pneumonia - Ceftriaxone as above - Azithromycin 500mg daily x3 days, to complete final dose at home - Continued home inhaler regimen History of PE -Continued home warfarin -INR within goal at 2.4 History of diastolic dysfunction - Patient noted with history of diastolic dysfunction, though most recent echo (10/21/21) did not reflect this - Patient with mild crackles at bases of lungs but very little LE edema; low suspicion for HF exacerbation during this hospitalization - BNP 171 - Continued home lasix Multiple myeloma - Continued home regimen - Patient takes dexamethasone 8mg once weekly on on the weeks he does not have chemotherapy BPH - Continued home dutasteride Recent cataract surgery - Continued prednisone eye drops (right eye - once daily, left eye - three times daily) Gout - Continued home allopurinol Depression - Continued home citalopram FEN: heart healthy diet Code status: DNR/DNI DVT ppx: home warfarin Case management: consulted for routine DC planning Dispo: med/surg (2) Anemia: (3) BPH loc w urin obs/LUTS: (4) Cancer: (5) Current use of longterm anticoagulation: (6) Diastolic dysfunction: (7) GERD (gastroesophageal reflux disease): (8) Multiple myeloma: (9) SOB (shortness of breath) on exertion: Total Time Total Time Spent Total Time Spent (In Minutes): <30 Discharge Plan Discharge Items Patient Disposition: Home - Self-Care Reason For Visit: FEVER, SOB, CONFUSION Discharge Diagnosis: Urinary tract infection Activity: Resume your previous activity Non-emergency contact: Primary Care Provider Call non-emergency contact if: you have any medication questions, your symptoms worsen, your pain is worsening and you have a fever Follow-up/Referrals: Corazon Vargas MD [Primary Care Provider] - 11/25/21 8:20 am Diet: Regular Addtl Attending Provider Instructions: You were admitted to the hospital for altered mental status, fever and chills. Your workup revealed the most likely cause of your symptoms to be a urinary tract infection. You were treated with antibiotics and your condition improved. You will continue taking antibiotics at home to complete the rest of your treatment course. A discharge summary will be sent to your primary care physician to ensure continuity of care. Please bring this discharge summary with you to your next office appointment so that your provider can review it at that time. Follow-up appointments: Make a follow-up appointment with your PCP within the next week. It is very important that you follow up with them shortly after discharge from the hospital.] Keep all your follow-up appointments as already scheduled. If you cannot make an appointment, notify your provider. Medications: Your medication list has been reviewed and reconciled upon discharge to ensure accuracy and continuity of care. An updated list of all your medications is included with your hospital discharge paperwork. Please review this list closely, and make note of any changes. We sent two new medications to the pharmacy. One is Azithromycin, which you will take as a single dose tomorrow. The other is Cefdinir, which you will take twice a day for 8 days. These will treat the remainder of your infection. Take your medications as instructed; do not skip a dose of your medicines. Make sure all of your doctors know every medicine you are taking (including [id number] medicines, vitamins, and supplements). Call your primary care provider before taking any new medicines (including [id number] medicines, vitamins, and supplements), because some of these may interact with your current medications, or may make your symptoms worse. Tell your primary care provider if you cannot afford your medications. CONTACT YOUR PRIMARY CARE PROVIDER if you experience any of the following: Fever Burning urination Nausea/vomiting Chills Fatigue Difficulty following your treatment plan, or difficulty taking medications CALL 911 OR GO TO THE EMERGENCY DEPARTMENT if you experience any of the following: Sudden, severe abdominal pain or nausea/vomiting Severe chest pain, or chest pain that radiates (moves) to your jaw or arm Sudden, severe shortness of breath or difficulty breathing Thank you for allowing us to participate in your care. Pending Studies at Discharge: Yes (Urine and blood cultures still pending) Stand-Alone Forms: My [facility] [employer], Smoking Cessation Medications and DC Order Prescriptions: New cefdinir 300 mg capsule 300 mg PO BID 8 Days Qty: 16 RF: 0 azithromycin 500 mg tablet 500 mg PO DAILY Qty: 1 RF: 0 Continued acetaminophen [Acetaminophen Extra Strength] 500 mg Tablet 1,000 mg PO Q8 PRN (Reason: Fever Or Pain) RF: 0 polyethylene glycol 3350 [Miralax] 17 gram/dose Powder 17 g PO DAILY PRN (Reason: Constipation) RF: 0 daratumumab 20 mg/mL Solution 0 mg IV MONTHLY RF: 0 pomalidomide 4 mg capsule 4 mg PO DIRECTED RF: 0 warfarin 3 mg tablet See Rx Instructions PO UD RF: 0 furosemide [Lasix] 20 mg tablet 20 mg PO QAM RF: 0 potassium citrate [Urocit-K 10] 10 mEq (1,080 mg) tablet extended release 10 meq PO BID 90 Days Qty: 180 RF: 3 allopurinol 100 mg tablet 100 mg PO BID Qty: 180 RF: 3 levalbuterol tartrate 45 mcg/actuation HFA aerosol inhaler 1 puffs INH Q6H PRN (Reason: shortness of breath) Qty: 15 RF: 1 acyclovir 400 mg Tablet 400 mg PO BID RF: 0 Neulasta Onpro 6 mg/0.6 mL Syringe, W/ Wearable Injector 6 mg subcut DIRECTED RF: 0 montelukast [Singulair] 10 mg tablet 10 mg PO DAILY PRN (Reason: Allergy Symptoms) RF: 0 citalopram 10 mg tablet 10 mg PO QAM RF: 0 zoledronic acid 4 mg/5 mL Solution 0 mg IV .Q 3 MONTHS RF: 0 Breo Ellipta 200-25 mcg/dose Blister With Device 1 inh INHALATION QAM RF: 0 dutasteride 0.5 mg capsule 0.5 mg PO QAM RF: 0 dexamethasone 4 mg tablet 8 mg PO DIRECTED RF: 0 Discharge Orders: Discharge Order (Routine); Ordered 11/17/21 Ordered By: Meaghan Slater/Other Patient Handouts: Cancer: Preventing Infections, Back Basics: A Healthy Spine Admission Data Admit Date/Time: 11/16/21 03:39 Attending Provider: Andrew Ambrosio Admit Provider: Bruno Cosme Primary Care Provider: Corazon Vargas Other Providers: Marcella Saleh ; Juanita Pulliam Other Interventions: Discharge Summary Assessment (RN) Last Done: 11/17/21 14:34 Supervising Physician Co-Signing Physician Notes I personally examined the patient and verified all sanchez points of history and exam, discussed case, and agree with decision making with Dr Davison feeling better feels up to going home vitals noted nad heent nc at mmm breathing unlabored no accessory muscles good effort skin no rashes no pallor or icterus pneumonia, UTI - possible sepsis/septic encephalopathy present on admission - improved- -safe for home finish PO abx otherwise as above Resident Activity Tracking Resident Involvement: Resident Care Provided Care Provided: Adult Hospital Medicine
[2021-11-17] MEDS ORDERED: WARFARIN SOD 3 MG TAB PO SCH (16:00)
--- NOTE | 2021-11-17 17:24 | Billing Data ---
Date of Service November 17, 2021 Coding Level of Care Code D/C DAY MANAGEMENT <30 MINS
--- NOTE | 2021-11-17 22:11 | Electrocardiogram Report ---
Test Reason : Blood Pressure : / mmHG Vent. Rate : 097 BPM Atrial Rate : 097 BPM P-R Int : 128 ms QRS Dur : 088 ms QT Int : 358 ms P-R-T Axes : 033 -29 033 degrees QTc Int : 454 ms Sinus rhythm with Premature atrial complexes Moderate voltage criteria for LVH, may be normal variant Nonspecific ST abnormality Abnormal ECG When compared with ECG of 02-DEC-2019 21:57, No significant change Confirmed by Kurt Araujo ([id number]) on 11/17/2021 10:11:48 PM Referred By: REFERRED SELF Confirmed By:Kurt Araujo
== END 2021-11-17 15:14 | disposition home or self-care (01) ==
LOC: ED 23:44 → SUATTDRO 11-16 03:39 → 3N 11-16 03:39 → INTOOBSV 11-16 03:39 → 3N 11-16 05:30

== ENCOUNTER 2022-01-17 09:05 | Inpatient (IN) ==
[2022-01-17] MEDS ORDERED: SODIUM CHLORIDE 0.9% 1000ML 1,000 ML IV SCH (09:15)
[2022-01-17 09:43] LABS: Hematocrit (blood only) 39.3 % (42-52); Hemoglobin 12.7 g/dL (14.0-18.0); Mean Corpuscular Hemoglobin 32.6 pg (25-34); Mean Corpuscular Hgb Conc 32.3 g/dL (32-36); Mean Platelet Volume 10.8 fL (7.4-10.4); Platelet Count 192 K/uL (130-400); RDW Coefficient of Variation 17.8 % (11.5-14.5); RDW Standard Deviation 65.4 fL (36.4-46.3); Red Blood Count 3.89 M/uL (4.7-6.1); White Blood Count 7.85 K/uL (4.8-10.8)
--- NOTE | 2022-01-17 10:03 | Emergency Department Note ---
History of Present Illness General Chief Complaint: Abdominal Pain Stated Complaint: R LOWER AB PAIN Time Seen by Provider: 01/17/22 09:10 History of Present Illness Provider Complaint: abdominal pain Onset (ago): 1 day(s) Pain Consistency: constant Location: RLQ Radiation: none Severity: moderate Maximum Pain Intensity: 6 Current Pain Intensity: 6 Quality: + stabbing and + sharp Relieved By: + nothing Exacerbated By: + nothing Context: + recent surgery/procedure (Bronchoscopy yesterday); no foreign travel, no possible food poisoning, no sick contacts, no recent antibiotic use or no recent injury Associated Symptoms: no nausea, no vomiting, no diarrhea, no fever, no chills, no constipation, no dysuria, no hematemesis, no hematochezia, no melena, no hematuria, no anorexia, no syncope, no headache, no neck pain, no back pain, no chest pain, no weakness, no breathing difficulty and no numbness Home Medications Medication Instructions Recorded Confirmed Type acetaminophen 500 mg tablet 1,000 mg PO Q8 PRN 06/28/18 12/11/21 History (Acetaminophen Extra Strength) daratumumab 20 mg/mL intravenous 0 mg IV MONTHLY 06/28/18 12/11/21 History solution polyethylene glycol 3350 17 17 g PO DAILY PRN 06/28/18 12/11/21 History gram/dose oral powder (Miralax) pomalidomide 4 mg capsule 4 mg PO DIRECTED 06/29/18 12/11/21 History acyclovir 400 mg tablet 400 mg PO BID 08/02/18 12/11/21 History pegfilgrastim 6 mg/0.6 mL 6 mg SUBCUT DIRECTED 08/02/18 12/11/21 History (deliverable) wearable subcutaneous injector (Neulasta Onpro) citalopram 10 mg tablet 10 mg PO QAM 04/25/19 12/11/21 History zoledronic acid 4 mg/5 mL 0 mg IV .Q 3 MONTHS 04/25/19 12/11/21 History intravenous solution levalbuterol tartrate 45 1 puffs INH Q6H PRN #15 gm 12/05/19 12/11/21 Rx mcg/actuation aerosol inhaler montelukast 10 mg tablet 10 mg PO DAILY PRN tab 07/25/20 12/11/21 History (Singulair) allopurinol 100 mg tablet 100 mg PO BID #180 tab 02/25/21 12/11/21 Rx potassium citrate 10 mEq (1,080 10 meq PO BID 90 Days #180 tab 02/25/21 12/11/21 Rx mg) tablet,extended release (Urocit-K 10) furosemide 20 mg tablet (Lasix) 20 mg PO QAM 02/28/21 12/11/21 History dutasteride 0.5 mg capsule 0.5 mg PO QAM 10/15/21 12/11/21 History fluticasone furoate 200 1 inh INHALATION QAM 10/15/21 12/11/21 History mcg-vilanterol 25 mcg/dose inhalation powder (Breo Ellipta) dexamethasone 4 mg tablet 8 mg PO DIRECTED 11/16/21 12/11/21 History doxycycline monohydrate 100 mg 100 mg PO BID #20 cap 12/11/21 Rx capsule enoxaparin 150 mg/mL subcutaneous 150 mg SUBCUT DAILY #20 syr 12/29/21 Rx syringe (Lovenox) Allergies Allergy/AdvReac Type Severity Reaction Status Date / Time dexamethasone AdvReac Severe Hallucinati Verified 11/16/21 02:14 on meclizine AdvReac Intermediate HALLUCINATI Verified 11/16/21 02:14 ON hydrocodone AdvReac Mild AGITATION Verified 11/16/21 02:14 levofloxacin [From Levaquin] AdvReac Mild muscle Verified 11/16/21 02:14 weakness lisinopril AdvReac Mild Dizziness Verified 11/16/21 02:14 Past Med/Surg History Medical History Anemia BASELINE 8-9 RANGE Cancer MULTIPLE MYELOMA (DX'D 2015); stem cell transplant, chemo Depression GERD (gastroesophageal reflux disease) History of nephrolithiasis History of pneumothorax 2019 with lung biopsy [place] (hard of hearing) Irregular heartbeat Osteoporosis 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 Port-A-Cath in place Left chest Pulmonary embolism 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); 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 SOB (shortness of breath) on exertion Thrombocytopenia Tremor Surgical History Bone marrow replaced by transplant History of cataract surgery RT History of chest tube placement History of lung biopsy benign Family History Father Cardiac disorder Mother Cancer Stroke Other No family history of adverse response to anesthesia Social History Smoking Status: Never smoker Second Hand Exposure: No; Hx Alcohol Use: No Hx Substance Use: No Preferred Language: Croatian Communication Ability: Effective Visual Impairment: No Limitations Complex Director Required: No Beliefs That Will Affect Care: None marital status: Current Living Situation: Spouse How many Children do You have: 1 Feels Safe at Home: Yes Assistive Devices: None Review of Systems A total of 10 systems reviewed and were otherwise negative Physical Exam Vital Signs: Vital Signs - 24 hr 01/17/22 09:05 01/17/22 09:30 01/17/22 10:00 Temperature 37.5 C Temperature Source Oral Pulse Rate 85 75 73 Pulse Rate from Sp O2 Sensor 69 Respiratory Rate 20 20 24 Blood Pressure 146/91 H 123/99 134/89 Blood Pressure Sushma n 109 107 104 Pulse Oximetry 91 92 95 Oxygen Delivery Me thod Room Air Sepsis Recent Feve r Within 48 Hours No Sepsis New/Unexpla ined Change in Men sara Status No Sepsis Action Take n by Nursing No Action Required Physical Exam: Physical Exam GENERAL: He is oriented to person, place, and time. He appears well-developed and well-nourished. He does not appear distressed. HENT: Exam performed. - Head: Normocephalic and atraumatic. - Right Ear: External ear normal. No mastoid tenderness. - Left Ear: External ear normal. No mastoid tenderness. - Mouth/Throat: The oropharynx is clear and moist. No trismus in the jaw. No dental abscesses or uvula swelling. No oropharyngeal exudate or tonsillar abscesses. EYES: Conjunctivae and EOM are normal. Pupils are equal, round, and reactive to light. Right eye exhibits no discharge. Left eye exhibits no discharge. No scleral icterus. NECK: Normal range of motion. Neck supple. No JVD present. No spinous process tenderness present. No carotid bruit present. No rigidity. No tracheal deviation and normal range of motion present. No Brudzinski's sign and no Kernig's sign noted. CV: Normal rate, regular rhythm, normal heart sounds and intact distal pulses. There is no peripheral edema. Palpable radial pulses bue. PULM/CHEST: Effort normal and breath sounds normal. No respiratory distress. No stridor. He has no wheezes. He has no rales. - Chest Wall: He exhibits no tenderness. ABD: The abdomen is soft. Bowel sounds are normal. He has no distension. No mass is present. There is tenderness to palpation of the right lower quadrant There is no rebound, no guarding, no Morgan's sign and Rovsig negative. MUSC/SKEL: Normal range of motion. There is no peripheral edema, tenderness or deformity. LYMPH: No cervical adenopathy. NEURO: He is alert and oriented to person, place, and time. He has normal strength. No cranial nerve deficit or sensory deficit. Coordination and gait normal. GCS eye subscore is 4. GCS verbal subscore is 5. GCS motor subscore is 6. Cerebellar tests wnl. SKIN: Skin is warm and dry. He is not diaphoretic. PSYCH: He has a normal mood and affect. Behavior is normal. Judgment and thought content normal. Course Course 0910: The patient was evaluated in room B7. A complete history and physical exam was performed Cardiac monitoring: An order was placed for continuous cardiac monitoring. The monitor shows a rate of 80 with sinus rhythm 1125: Vital signs stable. Labs showed increase the PTT. Imaging shows appendicitis. Discussed with Tara Blue PA-C for Dr. Thompson general surgery he will be down to evaluate the patient. Zosyn ordered for the patient. 1145: Dr. Thompson evaluated the patient at bedside. He states that he does not plan on taking the patient to the OR at this time given the patient's increased APTT and his other medical comorbidities. He states the patient should be admitted to medicine and he will follow the patient on consult. [facility] hospitalist will be contacted. Administered Medications Sodium Chloride (Nss 1000ml) 1,000 mls @ 125 mls/hr IV .Q8H CYN Stop: 02/16/22 09:14 Last Admin: 01/17/22 09:37 Dose: 125 mls/hr Documented by: [id number] Discontinued Medications Piperacillin Sod/Tazobactam Sod (Zosyn) 4.5 gm in 120 mls @ 240 mls/hr IV NOW ONE Stop: 01/17/22 11:47 Last Admin: 01/17/22 11:28 Dose: 240 mls/hr Documented by: [id number] Ioversol (Optiray 320 100ml) 94 ml IV ONCE ONE Stop: 01/17/22 10:37 Last Admin: 01/17/22 10:36 Dose: 94 ml Documented by: [id number] Medical Decision Making Laboratory Data Result diagrams: 01/17/22 09:33 01/17/22 09:33 Lab Results 01/17/22 01/17/22 01/17/22 Range/Units 09:33 09:33 09:33 WBC 7.85 (4.8-10.8) K/uL RBC 3.89 L (4.7-6.1) M/uL Hgb 12.7 L (14.0-18.0) g/dL Hct 39.3 L (42-52) % MCV 101.0 H (80-100) fL MCH 32.6 (25-34) pg MCHC 32.3 (32-36) g/dL RDW Std Deviation 65.4 H (36.4-46.3) fL RDW Coeff of Eyal 17.8 H (11.5-14.5) % Plt Count 192 (130-400) K/uL MPV 10.8 H (7.4-10.4) fL Immature Gran % (Auto) 0.3 % Neut % (Auto) 76.5 % Lymph % (Auto) 13.6 % [place] % (Auto) 7.0 % Eos % (Auto) 2.3 % Baso % (Auto) 0.3 % Neut # (Auto) 6.01 (1.4-6.5) K/uL Lymph # (Auto) 1.07 L (1.2-3.4) K/uL [place] # (Auto) 0.55 (0.11-0.59) K/uL Eos # (Auto) 0.18 (0-0.5) K/uL Baso # (Auto) 0.02 (0-0.2) K/uL Immature Gran # (Auto) 0.02 (0.00-0.02) K/uL Echinocytes 1+ PT (9.0-12.0) Seconds INR (0.9-1.1) APTT (21.0-31.0) Seconds PTT Ratio Sodium 139 (136-145) mmol/L Potassium 4.0 (3.5-5.1) mmol/L Chloride 110 H (98-107) mmol/L Carbon Dioxide 22 (21-32) mmol/L Anion Gap 7 (3-11) BUN 15 (6-23) mg/dl Creatinine 0.79 (0.6-1.4) mg/dl Est Cr Clr Drug Dosing 82.1 ml/min Est GFR ( Amer) 101.1 ml/min Est GFR (Non-Af Amer) 87.2 ml/min BUN/Creatinine Ratio 19.0 (10-20) Glucose 91 (70-99(Fasting)) mg/dl Calcium 8.2 L (8.5-10.1) mg/dl Total Bilirubin 0.4 (0.2-1.0) mg/dl Direct Bilirubin 0.1 (0-0.2) mg/dl AST 10 L (13-39) U/L ALT 17 (7-52) U/L Alkaline Phosphatase 63 (34-104) U/L Troponin I High Sens 8.5 (0-20) pg/ml Total Protein 5.3 L (6.0-8.3) gm/dl Albumin 3.4 (3.4-5.0) gm/dl Lipase 196 H (11-82) U/L SARS-CoV-2, RNA, NAAT (NEGATIVE) 01/17/22 01/17/22 Range/Units 09:33 11:26 WBC (4.8-10.8) K/uL RBC (4.7-6.1) M/uL Hgb (14.0-18.0) g/dL Hct (42-52) % MCV (80-100) fL MCH (25-34) pg MCHC (32-36) g/dL RDW Std Deviation (36.4-46.3) fL RDW Coeff of Eyal (11.5-14.5) % Plt Count (130-400) K/uL MPV (7.4-10.4) fL Immature Gran % (Auto) % Neut % (Auto) % Lymph % (Auto) % [place] % (Auto) % Eos % (Auto) % Baso % (Auto) % Neut # (Auto) (1.4-6.5) K/uL Lymph # (Auto) (1.2-3.4) K/uL [place] # (Auto) (0.11-0.59) K/uL Eos # (Auto) (0-0.5) K/uL Baso # (Auto) (0-0.2) K/uL Immature Gran # (Auto) (0.00-0.02) K/uL Echinocytes PT 11.8 (9.0-12.0) Seconds INR 1.1 (0.9-1.1) APTT 109.1 H* (21.0-31.0) Seconds PTT Ratio 4.0 Sodium (136-145) mmol/L Potassium (3.5-5.1) mmol/L Chloride (98-107) mmol/L Carbon Dioxide (21-32) mmol/L Anion Gap (3-11) BUN (6-23) mg/dl Creatinine (0.6-1.4) mg/dl Est Cr Clr Drug Dosing ml/min Est GFR ( Amer) ml/min Est GFR (Non-Af Amer) ml/min BUN/Creatinine Ratio (10-20) Glucose (70-99(Fasting)) mg/dl Calcium (8.5-10.1) mg/dl Total Bilirubin (0.2-1.0) mg/dl Direct Bilirubin (0-0.2) mg/dl AST (13-39) U/L ALT (7-52) U/L Alkaline Phosphatase (34-104) U/L Troponin I High Sens (0-20) pg/ml Total Protein (6.0-8.3) gm/dl Albumin (3.4-5.0) gm/dl Lipase (11-82) U/L SARS-CoV-2, RNA, NAAT NEGATIVE (NEGATIVE) Imaging Data Radiologist's Impression: Chest X-Ray 01/17/22 09:16 XR chest 1V portable CLINICAL HISTORY: Abdominal pain. Evaluate lung bases. COMPARISON STUDY: 11/16/2021 TECHNIQUE: 1 view of the chest FINDINGS: Single frontal view of the chest demonstrates the cardiomediastinal silhouette to be within normal limits. There is a decreased inspiratory effort with elevat ion of the hemidiaphragms and crowding of the bronchovascular markings at the lung bases and centrally. There is blunting of left costophrenic angle characteristic of a small left pleural effusion. Is also left basilar atelectasis. No confluent alveolar opacities are seen. There is no evidence for vascular congestion. There is no acute osseous pathology. IMPRESSION: 1. There is a decreased inspiratory effort with evidence for small left pleural effusion and left basilar atelectasis. ACT 112: Negative or not required by law. Electronically signed by: Gt Jennings M.D. 01/17/2022 10:14 AM Abdomen/Pelvis CT 01/17/22 09:17 CT abd pelvis IV con only CLINICAL HISTORY: Right lower quadrant abdominal pain COMPARISON STUDY: 11/16/2021 CT DOSE: 815.67 mGy.cm TECHNIQUE: Standard CT of the Abdomen and Pelvis was performed with IV contrast. A dose lowering technique was utilized adhering to the principles of ALARA. Contrast Volume: Optiray 320, 94 ml. The patient did not receive oral contrast. FINDINGS: Lung base: Compared to previous examination, asymmetric left basilar atelectasis versus scarring is present. The right lung base is clear. Extensive coronary artery calcifications present. Abdominal cavity: There is no evidence for abdominal mass, adenopathy or ascites. Liver: There is homogeneous attenuation of the liver parenchyma. There is no evidence for enhancing mass lesion. There is mild dilatation of the major intrahepatic biliary duct radicles. Spleen: There is homogeneous attenuation of the splenic parenchyma. There is no enhancing mass lesion. Pancreas: There is homogeneous attenuation of the pancreatic parenchyma. There is no evidence for mass lesion or peripancreatic fluid collection. Gall Bladder: The gallbladder is well distended with no evidence for intraluminal calculi, wall thickening or pericholecystic edema. However, there is mild dilatation of the common bile duct with no evidence for shin docholithiasis. Adrenal glands: The adrenal glands are normal in size and attenuation. There is no evidence for enhancing mass lesion. Kidneys: There is homogeneous attenuation of the renal parenchyma bilaterally. There is no evidence for renal calculus or hydronephrosis. There is no evidence for enhancing mass. Bowel: There has been interval development of acute appendicitis with dilatation of the appendix and enhancement of the wall. Periappendiceal edema is present without evidence for perforation or abscess. The remaining bowel loops are normally placed within the abdomen and pelvis without evidence for dilatation or obstruction. There is no evidence for mass lesion. There is mild fecal stasis. There is no evidence for free air. Bladder: The bladder is within normal limits with no evidence for focal mass, calculus or diverticulum. : There is no evidence for pelvic mass or adenopathy. There is no evidence for pelvic ascites. The prostate is moderately enlarged. Vasculature: There is no evidence for aneurysmal dilatation of the abdominal aorta. Atherosclerotic calcification is present. Osseous structures: There is no acute osseous pathology. Degenerative changes are seen within the spine. There is abnormal trabecular thickening of the iliac wings bilaterally suspicious for Paget's disease. Lucencies are present and the appearance of lytic lesions. However, this may relate to osteoporosis. There is also osteoporosis spine and suspicious of lytic lesions as well. IMPRESSION: 1. Interval development of acute appendicitis without evidence for perforation or abscess. 2. There is also mild dilatation of the common bile duct and major intrahepatic biliary duct radicles. No evidence of choledocholithiasis or pancreatic head mass. 3. Additional nonacute findings are delineated above. ACT 112: Negative or not required by law. Electronically signed by: Gt Jennings M.D. 01/17/2022 10:59 AM ECG Data Indication: abdominal pain Rate (beats per minute): 70 Rhythm: sinus with SA Findings: no ST depression, no ST elevation or no prolonged QT Additional Comments: LVH MDM Narrative 0910: The patient was evaluated in room B7. A complete history and physical exam was performed Cardiac monitoring: An order was placed for continuous cardiac monitoring. The monitor shows a rate of 80 with sinus rhythm 1125: Vital signs stable. Labs showed increase the PTT. Imaging shows appendicitis. Discussed with Tara Blue PA-C for Dr. Thompson general surgery he will be down to evaluate the patient. Zosyn ordered for the patient. 1145: Dr. Thompson evaluated the patient at bedside. He states that he does not plan on taking the patient to the OR at this time given the patient's increased APTT and his other medical comorbidities. He states the patient should be admitted to medicine and he will follow the patient on consult. [facility] Hospitalist will be contacted. Impression & Plan Acute appendicitis Discharge Plan Visit Data Chief Complaint: Abdominal Pain Stated Complaint: R LOWER AB PAIN ED Provider: Eugenio Bullock Discharge Problem: Acute appendicitis Patient Disposition: Admitted As Inpatient Forms Stand Alone Forms: My [facility] Prescriptions Prescriptions: No Action acetaminophen [Acetaminophen Extra Strength] 500 mg Tablet 1,000 mg PO Q8 PRN (Reason: Fever Or Pain) RF: 0 polyethylene glycol 3350 [Miralax] 17 gram/dose Powder 17 g PO DAILY PRN (Reason: Constipation) RF: 0 daratumumab 20 mg/mL Solution 0 mg IV MONTHLY RF: 0 pomalidomide 4 mg capsule 4 mg PO DIRECTED RF: 0 furosemide [Lasix] 20 mg tablet 20 mg PO QAM RF: 0 enoxaparin [Lovenox] 150 mg/mL syringe 150 mg subcut DAILY Qty: 20 RF: 1 potassium citrate [Urocit-K 10] 10 mEq (1,080 mg) tablet extended release 10 meq PO BID 90 Days Qty: 180 RF: 3 allopurinol 100 mg tablet 100 mg PO BID Qty: 180 RF: 3 levalbuterol tartrate 45 mcg/actuation HFA aerosol inhaler 1 puffs INH Q6H PRN (Reason: shortness of breath) Qty: 15 RF: 1 acyclovir 400 mg Tablet 400 mg PO BID RF: 0 Neulasta Onpro 6 mg/0.6 mL Syringe, W/ Wearable Injector 6 mg subcut DIRECTED RF: 0 montelukast [Singulair] 10 mg tablet 10 mg PO DAILY PRN (Reason: Allergy Symptoms) RF: 0 citalopram 10 mg tablet 10 mg PO QAM RF: 0 zoledronic acid 4 mg/5 mL Solution 0 mg IV .Q 3 MONTHS RF: 0 Breo Ellipta 200-25 mcg/dose Blister With Device 1 inh INHALATION QAM RF: 0 dutasteride 0.5 mg capsule 0.5 mg PO QAM RF: 0 dexamethasone 4 mg tablet 8 mg PO DIRECTED RF: 0 doxycycline monohydrate 100 mg capsule 100 mg PO BID Qty: 20 RF: 0 Referrals Referrals: Corazon Vargas MD [Primary Care Provider] -
[2022-01-17 10:07] LABS: Basophils # (auto) 0.02 K/uL (0-0.2); Basophils % (auto) 0.3 %; Echinocytes 1+; Eosinophils # (auto) 0.18 K/uL (0-0.5); Eosinophils % (auto) 2.3 %; Immature Granulocytes # (auto) 0.02 K/uL (0.00-0.02); Immature Granulocytes % (auto) 0.3 %; Lymphocytes # (auto) 1.07 K/uL (1.2-3.4); Lymphocytes % (auto) 13.6 %; Monocytes # (auto) 0.55 K/uL (0.11-0.59); Neutrophils # (auto) 6.01 K/uL (1.4-6.5); Neutrophils % (auto) 76.5 %
[2022-01-17 10:09] LABS: INR 1.1 (0.9-1.1); Prothrombin Time 11.8 Seconds (9.0-12.0)
[2022-01-17 10:12] LABS: Partial Thromboplastin Time 109.1 Seconds (21.0-31.0)
[2022-01-17 10:13] LABS: Albumin Level 3.4 gm/dl (3.4-5.0); Bilirubin Direct 0.1 mg/dl (0-0.2); Bilirubin,Total 0.4 mg/dl (0.2-1.0); Calcium 8.2 mg/dl (8.5-10.1); Creatinine Clr Calc Pharmacy 82.1 ml/min; Est GFR (African American) 101.1 ml/min; Est GFR (Non-African American) 87.2 ml/min; Total Protein 5.3 gm/dl (6.0-8.3)
[2022-01-17 10:14] LABS: Troponin I High Sensitivity 8.5 pg/ml (0-20)
--- NOTE | 2022-01-17 10:16 | XRay Report ---
XR chest 1V portable CLINICAL HISTORY: Abdominal pain. Evaluate lung bases. COMPARISON STUDY: 11/16/2021 TECHNIQUE: 1 view of the chest FINDINGS: Single frontal view of the chest demonstrates the cardiomediastinal silhouette to be within normal li mits. There is a decreased inspiratory effort with elevation of the hemidiaphragms and crowding of th e bronchovascular markings at the lung bases and centrally. There is blunting of left costophrenic an gle characteristic of a small left pleural effusion. Is also left basilar atelectasis. No confluent a lveolar opacities are seen. There is no evidence for vascular congestion. There is no acute osseous p athology. IMPRESSION: 1. There is a decreased inspiratory effort with evidence for small left pleural effusion and left bas ilar atelectasis. ACT 112: Negative or not required by law. Electronically signed by: Gt Jennings M.D. 01/17/2022 10:14 AM
[2022-01-17] MEDS ORDERED: OPTIRAY 320 100ml IV ONE (10:36)
--- NOTE | 2022-01-17 11:00 | CT Scan Report ---
CT abd pelvis IV con only CLINICAL HISTORY: Right lower quadrant abdominal pain COMPARISON STUDY: 11/16/2021 CT DOSE: 815.67 mGy.cm TECHNIQUE: Standard CT of the Abdomen and Pelvis was performed with IV contrast. A dose lowering camila hnique was utilized adhering to the principles of ALARA. Contrast Volume: Optiray 320, 94 ml. The patient did not receive oral contrast. FINDINGS: Lung base: Compared to previous examination, asymmetric left basilar atelectasis versus scarring is p resent. The right lung base is clear. Extensive coronary artery calcifications present. Abdominal cavity: There is no evidence for abdominal mass, adenopathy or ascites. Liver: There is homogeneous attenuation of the liver parenchyma. There is no evidence for enhancing m ass lesion. There is mild dilatation of the major intrahepatic biliary duct radicles. Spleen: There is homogeneous attenuation of the splenic parenchyma. There is no enhancing mass lesion . Pancreas: There is homogeneous attenuation of the pancreatic parenchyma. There is no evidence for mas s lesion or peripancreatic fluid collection. Gall Bladder: The gallbladder is well distended with no evidence for intraluminal calculi, wall thick ening or pericholecystic edema. However, there is mild dilatation of the common bile duct with no akin dence for choledocholithiasis. Adrenal glands: The adrenal glands are normal in size and attenuation. There is no evidence for enhan cing mass lesion. Kidneys: There is homogeneous attenuation of the renal parenchyma bilaterally. There is no evidence f or renal calculus or hydronephrosis. There is no evidence for enhancing mass. Bowel: There has been interval development of acute appendicitis with dilatation of the appendix and enhancement of the wall. Periappendiceal edema is present without evidence for perforation or abscess . The remaining bowel loops are normally placed within the abdomen and pelvis without evidence for dil atation or obstruction. There is no evidence for mass lesion. There is mild fecal stasis. There is no evidence for free air. Bladder: The bladder is within normal limits with no evidence for focal mass, calculus or diverticulu m. : There is no evidence for pelvic mass or adenopathy. There is no evidence for pelvic ascites. The prostate is moderately enlarged. Vasculature: There is no evidence for aneurysmal dilatation of the abdominal aorta. Atherosclerotic c alcification is present. Osseous structures: There is no acute osseous pathology. Degenerative changes are seen within the spi ne. There is abnormal trabecular thickening of the iliac wings bilaterally suspicious for Paget's dis ease. Lucencies are present and the appearance of lytic lesions. However, this may relate to osteopor osis. There is also osteoporosis spine and suspicious of lytic lesions as well. IMPRESSION: 1. Interval development of acute appendicitis without evidence for perforation or abscess. 2. There is also mild dilatation of the common bile duct and major intrahepatic biliary duct radicles . No evidence of choledocholithiasis or pancreatic head mass. 3. Additional nonacute findings are delineated above. ACT 112: Negative or not required by law. Electronically signed by: Gt Jennings M.D. 01/17/2022 10:59 AM
[2022-01-17] MEDS ORDERED: PIPERACILLIN/TAZOBACTAM 4.5 GM/120 ML BAG IV ONE (11:18)
[2022-01-17] MEDS ORDERED: Heparin IV Adult Wt-Based Standard WITH Bolus Protocol IV STA (11:50)
--- NOTE | 2022-01-17 11:54 | History & Physical Report ---
Date of Service January 17, 2022 Assessment & Plan (1) Acute appendicitis: Plan: -On CT A/P without perforation or abscess. -General surgery consulted, due to patient's comorbid medical issues as well as the fact that he is on Lovenox for history of PEs, recommending IV ABX and clear liquid diet for now. N.p.o. at midnight pending any planned procedures. -Zosyn q8h. -IV pain meds, antiemetics. (2) History of pulmonary embolism: Plan: -Had previously been on Coumadin for PE s/p stem cell transplant in 2017, had recurrence of PEs this past month while on Coumadin and was switched to Lovenox. Lovenox held 01/15 for bronchoscopy yesterday resumed last evening, 01/16. -Given there is possibility patient will require surgical intervention for his appendicitis, plan to start heparin drip without bolus this evening. (3) (HFpEF) heart failure with preserved ejection fraction: Plan: -Patient noted with history of diastolic dysfunction, though most recent echo (10/21/21) did not reflect this. -Euvolemic on exam today without lung crackles, JVD, peripheral edema. -Continue Lasix 20 mg daily w/ KCl suppl 10 mg. (4) Cancer: Plan: -Multiple myeloma on chronic chemotherapy, due this week on 01/22. Previously seen by Dr. Rodriguez, now Jayshree Mora. -Acyclovir 400 mg BID ppx. -Takes dexamethasone 8 mg every , Neulasta on chemo days. (5) SOB (shortness of breath) on exertion: Plan: -Ongoing for weeks, with exertion, no change in baseline today. Had bronchoscopy yesterday for further workup, results of that study are pending. -Sees Dr. Marbella phan/ [facility]. -Is on RA with SpO2 > 95%, has Breo and albuterol inhalers. Will continue these. -No evidence of volume overload, pneumonia, or post-procedural lung injury on exam, CXR. (6) Depression: Plan: -Continue celexa 10 mg. (7) GERD (gastroesophageal reflux disease): Plan: -Chronic, stable. -PPI prn. (8) Anemia: Plan: -H/H stable, no acute issues. (9) BPH loc w urin obs/LUTS: Plan: -Continue dutasteride. (10) Gout: Plan: -Continue allopurinol. Plan: -Admit to med/surg. -SCDs, Heparin drip for DVT ppx. -DNR/DNI. History of Present Illness Chief Complaint: RLQ pain x 1 day Primary Care Provider: Corazon Vargas MD Mr. Rodriguez is a 76yo male with a PMH significant for multiple myeloma (diagnosed 2016, on chronic chemotherapy), history of PE (on lovenox), gout, BPH, and GERD presents with RLQ pain. Pain began last night, is sharp, stabbing in nature, rates 6/10. Repots it has been present for a few months intermittently, but much worse starting last night. Laying still helps, as soon as he moves or upon palpation in RLQ, pain worsens. No noted remitting factors, tried Tylenol x3 1000mg tablets throughout the night. Was able to sleep a few hours but woke up in pain. Additionally, he has not had a BM in a few days, does have some constipation at baseline, takes Miralax as needed at home. Otherwise without fever/chills, chest pain/tightness, palpitations, acute change to chronic SOB, cough, nausea, vomiting, diarrhea, hematochezia, melena, increased urinary urgency/frequency, dysuria, or hematuria. Had a bronchoscopy yesterday in [place] for chronic shortness of breath worsening over several months. Have not heard from the doctor regarding the bronchoscopy yet, are awaiting final results. Has inhalers at home but does not use oxygen. No shortness of breath at rest, but fatigues quickly and 'starts puffing' quickly with exertion. In ED, VS are wnl, stable. Labs significant for PTT 109.1, lipase 196. CXR with evidence for small left pleural effusion and left basilar atelectasis. CT A/P shows interval development of acute appendicitis without evidence for perforation or abscess. There is also mild dilatation of the common bile duct and major intrahepatic biliary duct radicles. No evidence of choledocholithiasis or pancreatic head mass. Has received Zosyn and IVF in ED, general surgery consulted. Allergies Allergy/AdvReac Type Severity Reaction Status Date / Time dexamethasone AdvReac Severe Hallucinati Verified 11/16/21 02:14 on meclizine AdvReac Intermediate HALLUCINATI Verified 11/16/21 02:14 ON hydrocodone AdvReac Mild AGITATION Verified 11/16/21 02:14 levofloxacin [From Levaquin] AdvReac Mild muscle Verified 11/16/21 02:14 weakness lisinopril AdvReac Mild Dizziness Verified 11/16/21 02:14 Home Medications Medication Instructions Recorded Confirmed Type acetaminophen 500 mg tablet 1,000 mg PO Q8 PRN 06/28/18 12/11/21 History (Acetaminophen Extra Strength) daratumumab 20 mg/mL intravenous 0 mg IV MONTHLY 06/28/18 12/11/21 History solution polyethylene glycol 3350 17 17 g PO DAILY PRN 06/28/18 12/11/21 History gram/dose oral powder (Miralax) pomalidomide 4 mg capsule 4 mg PO DIRECTED 06/29/18 12/11/21 History acyclovir 400 mg tablet 400 mg PO BID 08/02/18 12/11/21 History pegfilgrastim 6 mg/0.6 mL 6 mg SUBCUT DIRECTED 08/02/18 12/11/21 History (deliverable) wearable subcutaneous injector (Neulasta Onpro) citalopram 10 mg tablet 10 mg PO QAM 04/25/19 12/11/21 History zoledronic acid 4 mg/5 mL 0 mg IV .Q 3 MONTHS 04/25/19 12/11/21 History intravenous solution levalbuterol tartrate 45 1 puffs INH Q6H PRN #15 gm 12/05/19 12/11/21 Rx mcg/actuation aerosol inhaler montelukast 10 mg tablet 10 mg PO DAILY PRN tab 07/25/20 12/11/21 History (Singulair) allopurinol 100 mg tablet 100 mg PO BID #180 tab 02/25/21 12/11/21 Rx potassium citrate 10 mEq (1,080 10 meq PO BID 90 Days #180 tab 02/25/21 12/11/21 Rx mg) tablet,extended release (Urocit-K 10) furosemide 20 mg tablet (Lasix) 20 mg PO QAM 02/28/21 12/11/21 History dutasteride 0.5 mg capsule 0.5 mg PO QAM 10/15/21 12/11/21 History fluticasone furoate 200 1 inh INHALATION QAM 10/15/21 12/11/21 History mcg-vilanterol 25 mcg/dose inhalation powder (Breo Ellipta) dexamethasone 4 mg tablet 8 mg PO DIRECTED 11/16/21 12/11/21 History doxycycline monohydrate 100 mg 100 mg PO BID #20 cap 12/11/21 Rx capsule enoxaparin 150 mg/mL subcutaneous 150 mg SUBCUT DAILY #20 syr 12/29/21 Rx syringe (Lovenox) Past Med/Surg History Medical History Anemia BASELINE 8-9 RANGE Cancer MULTIPLE MYELOMA (DX'D 2015); stem cell transplant, chemo Depression GERD (gastroesophageal reflux disease) History of nephrolithiasis History of pneumothorax 2020 with lung biopsy [place] (hard of hearing) Irregular heartbeat Osteoporosis 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 Port-A-Cath in place Left chest Pulmonary embolism 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); 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 SOB (shortness of breath) on exertion Thrombocytopenia Tremor Surgical History Bone marrow replaced by transplant History of cataract surgery RT History of chest tube placement History of lung biopsy benign Family History Father Cardiac disorder Mother Cancer Stroke Other No family history of adverse response to anesthesia Social History Smoking Status: Never smoker Second Hand Exposure: No; Hx Alcohol Use: No Hx Substance Use: No Preferred Language: Wallisian Communication Ability: Effective Visual Impairment: No Limitations 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 Beliefs That Will Affect Care: None marital status: Current Living Situation: Spouse How many Children do You have: 1 Feels Safe at Home: Yes Assistive Devices: None Review of Systems Review of Systems: Constitutional: No fever/chills, weakness, fatigue, myalgias, anorexia, night sweats Eyes: No diplopia, no worsening or blurred vision ENT: normal hearing, no trouble swallowing Respiratory: chronic SOB with exertion for several months, no change in this today; no dyspnea at rest cough or sputum production Cardiovascular: No chest pain, tightness or palpitations Abdomen: sharp RLQ pain since last night worse with movement better with rest, no radation; no nausea, vomiting, diarrhea or constipation : Denies dysuria, hematuria, increased urgency/frequency, urinary retention Musculoskeletal: No joint pain, calf pain, swelling Neurologic: No weakness, numbness/tingling, or balance problems Psychiatric: No anxiety or depression Skin: No new abdominal ecchymosis; no rash or itch Physical Exam Physical Exam: General: awake, alert, no apparent distress, on RA Head: Normocephalic, atraumatic ENT: PERRL, EOMI, no pharyngeal exudate, mucous membranes moist Chest: expiratory wheezes heard throughout, without crackles or other adventitious breath sounds Cardiac: Regular rate and rhythm, no murmur, no JVD, normal peripheral pulses, good capillary refill Abdominal: RLQ pain with deep and light palpation, without rebound, guarding, or ecchymosis; NABS x 4 quadrants, soft, and is otherwise nontender to palpat ion, no rebound, guarding Extremities: Normal inspection, no peripheral edema or erythema, calfs nontender to palpation Psych: Normal mood and affect Neuro: AAO x 3, strength intact bilaterally and rated 5/5, no motor deficits, speech is clear, no peripheral sensory deficits Skin: multiple bruises on abdomen consistent with lovenox injection sites, no rash or erythema Results & Data Results & Data ([facility]) Vital Signs (Past 12 Hours) Vital Signs Temp Pulse Resp BP Pulse Ox 01/17/22 10:00 73 24 134/89 95 01/17/22 09:30 75 20 123/99 92 01/17/22 09:05 37.5 C 85 20 146/91 H 91 Laboratory Results Abnormal lab results 01/17/22 01/17/22 01/17/22 Range/Units 09:33 09:33 09:33 RBC 3.89 L (4.7-6.1) M/uL Hgb 12.7 L (14.0-18.0) g/dL Hct 39.3 L (42-52) % MCV 101.0 H (80-100) fL RDW Std Deviation 65.4 H (36.4-46.3) fL RDW Coeff of Eyal 17.8 H (11.5-14.5) % MPV 10.8 H (7.4-10.4) fL Lymph # (Auto) 1.07 L (1.2-3.4) K/uL APTT (21.0-31.0) Seconds Chloride 110 H (98-107) mmol/L Calcium 8.2 L (8.5-10.1) mg/dl AST 10 L (13-39) U/L Total Protein 5.3 L (6.0-8.3) gm/dl Lipase 196 H (11-82) U/L Ur Specific [place] (1.000-1.030) Urine Blood (Negative) Urine RBC (Auto) (0-4) /hpf U Epithel Cells (Auto) (0-5) /lpf 01/17/22 01/17/22 Range/Units 09:33 11:50 RBC (4.7-6.1) M/uL Hgb (14.0-18.0) g/dL Hct (42-52) % MCV (80-100) fL RDW Std Deviation (36.4-46.3) fL RDW Coeff of Eyal (11.5-14.5) % MPV (7.4-10.4) fL Lymph # (Auto) (1.2-3.4) K/uL APTT 109.1 H* (21.0-31.0) Seconds Chloride (98-107) mmol/L Calcium (8.5-10.1) mg/dl AST (13-39) U/L Total Protein (6.0-8.3) gm/dl Lipase (11-82) U/L Ur Specific [place] > 1.045 H (1.000-1.030) Urine Blood 1+ H (Negative) Urine RBC (Auto) 5-10 H (0-4) /hpf U Epithel Cells (Auto) 5-10 H (0-5) /lpf Diagnostic Findings Chest X-Ray 01/17/22 09:16 XR chest 1V portable CLINICAL HISTORY: Abdominal pain. Evaluate lung bases. COMPARISON STUDY: 11/16/2021 TECHNIQUE: 1 view of the chest FINDINGS: Single frontal view of the chest demonstrates the cardiomediastinal silhouette to be within normal limits. There is a decreased inspiratory effort with elevation of the hemidiaphragms and crowding of the bronchovascular markings at the lung bases and centrally. There is blunting of left costophrenic angle characteristic of a small left pleural effusion. Is also left basilar atelectasis. No confluent alveolar opacities are seen. There is no evidence for vascular congestion. There is no acute osseous pathology. IMPRESSION: 1. There is a decreased inspiratory effort with evidence for small left pleural effusion and left basilar atelectasis. ACT 112: Negative or not required by law. Electronically signed by: Gt Jennings M.D. 01/17/2022 10:14 AM Abdomen/Pelvis CT 01/17/22 09:17 CT abd pelvis IV con only CLINICAL HISTORY: Right lower quadrant abdominal pain COMPARISON STUDY: 11/16/2021 CT DOSE: 815.67 mGy.cm TECHNIQUE: Standard CT of the Abdomen and Pelvis was performed with IV contrast. A dose lowering technique was utilized adhering to the principles of ALARA. Contrast Volume: Optiray 320, 94 ml. The patient did not receive oral contrast. FINDINGS: Lung base: Compared to previous examination, asymmetric left basilar atelectasis versus scarring is present. The right lung base is clear. Extensive coronary artery calcifications present. Abdominal cavity: There is no evidence for abdominal mass, adenopathy or ascites. Liver: There is homogeneous attenuation of the liver parenchyma. There is no evidence for enhancing mass lesion. There is mild dilatation of the major intrahepatic biliary duct radicles. Spleen: There is homogeneous attenuation of the splenic parenchyma. There is no enhancing mass lesion. Pancreas: There is homogeneous attenuation of the pancreatic parenchyma. There is no evidence for mass lesion or peripancreatic fluid collection. Gall Bladder: The gallbladder is well distended with no evidence for intraluminal calculi, wall thickening or pericholecystic edema. However, there is mild dilatation of the common bile duct with no evidence for choledocholithiasis. Adrenal glands: The adrenal glands are normal in size and attenuation. There is no evidence for enhancing mass lesion. Kidneys: There is homogeneous attenuation of the renal parenchyma bilaterally. There is no evidence for renal calculus or hydronephrosis. There is no evidence for enhancing mass. Bowel: There has been interval development of acute appendicitis with dilatation of the appendix and enhancement of the wall. Periappendiceal edema is present without evidence for perforation or abscess. The remaining bowel loops are normally placed within the abdomen and pelvis without evidence for dilatation or obstruction. There is no evidence for mass lesion. There is mild fecal stasis. There is no evidence for free air. Bladder: The bladder is within normal limits with no evidence for focal mass, calculus or diverticulum. : There is no evidence for pelvic mass or adenopathy. There is no evidence for pelvic ascites. The prostate is moderately enlarged. Vasculature: There is no evidence for aneurysmal dilatation of the abdominal aorta. Atherosclerotic calcification is present. Osseous structures: There is no acute osseous pathology. Degenerative changes are seen within the spine. There is abnormal trabecular thickening of the iliac wings bilaterally suspicious for Paget's disease. Lucencies are present and the appearance of lytic lesions. However, this may relate to osteoporosis. There is also osteoporosis spine and suspicious of lytic lesions as well. IMPRESSION: 1. Interval development of acute appendicitis without evidence for perforation or abscess. 2. There is also mild dilatation of the common bile duct and major intrahepatic biliary duct radicles. No evidence of choledocholithiasis or pancreatic head mass. 3. Additional nonacute findings are delineated above. ACT 112: Negative or not required by law. Electronically signed by: Gt Jennings M.D. 01/17/2022 10:59 AM ECG Additional Comments: Sinus rhythm with Premature atrial complexes Left axis deviation Moderate voltage criteria for LVH, may be normal variant Abnormal ECG When compared with ECG of 11-DEC-2021 12:11, No significant change was found Code Status & VTE Plan Code Status DNR/DNI Supervising Physician Co-Signing Physician Notes Patient seen and examined, chart reviewed, case discussed with Stephani Wagner PA-C and I agree with the assessment and plan as above except as otherwise noted. Patient is seen at the bedside with MARCIAL. Patient with chronic shortness of breath with prior pneumonia who had a bronchoscopy as noted above 01/16. This did show some ulceration of the right middle lobe and residual upper consolidation which underwent washout. With patient's pain was recommended to go to the ER, provider was concerned about lung collapse and recommended going to the nearest facility which was [facility]. CXR does not show evidence of lung collapse. Abdominal imaging does show evidence of acute appendicitis. Surgery was consulted for evaluation, given anticoagulation, comorbidities, and surgical risk patient is not recommended for surgery at this time. We will continue with medical management and antibiotics at this time, received empiric Zosyn on admission which will be continued. There is no evidence of perforation or abscess on imaging. If patient fails medical therapy will reconsider surgical intervention at that time. Patient does have a history of PEs for which she has been on Lovenox daily injections for approximately 1 month. Last dose was last night, he has been scheduled to start a heparin drip tonight at 9 PM to replace this while inpatient. On exam he is alert and oriented, although hard of hearing. Collateral is collected with the assistance of his . Does have right lower quadrant tenderness without rebound. No rigidity/guarding. Labs and images reviewed PG Care Time/CCT Total # of Minutes Spent Total Time Spent with Patient: Total time spent is greater than 50% in coordination of care (as documented) at patient's floor/unit and/or counseling patient: Coding Level of Care Code 82279 Initial Inpt Care Lvl 3 Diagnoses Acute appendicitis K35.80 Acute appendicitis type: unspecified acute appendicitis type Cancer C80.1 Depression F32.9 SOB (shortness of breath) on exertion R06.02 GERD (gastroesophageal reflux disease) K21.9 Anemia D64.9 (HFpEF) heart failure with preserved ejection fraction I50.30 History of pulmonary embolism Z86.711 BPH loc w urin obs/LUTS N40.1 Gout M10.9 (1) Acute appendicitis Acute appendicitis type: unspecified acute appendicitis type Qualified Code(s): K35.80 - Unspecified acute appendicitis
--- NOTE | 2022-01-17 11:56 | Surgery Consultation ---
Date of Consultation January 17, 2022 Assessment & Plan (1) Acute appendicitis: This is a 76yM with a PMH significant for multiple myeloma (dx in 2016 and s/p bone marrow txp), on anticoagulation for PE's while on coumadin, BPH, gout who presents to the [facility] ED on 01/17/22 with complaints of abdominal pain that started last night. Workup in the ER with CT a/p revealed findings concerning for acute appendicitis without abscess formation. WBC 7.8. PTT 109. On exam abdomen ttp in the RLQ. Patient has significant medical issues including MM and PE's that were acquired while on coumadin, now transitioned to lovenox. Given his morbidities we do not want to moran patient to the OR. We would recommend admitting patient and starting IV abx. He may have clear liquids and make NPO at midnight given any upcoming procedures. Hopeful we can get him through this with conservative measures as he is not an ideal surgical candidate. Appreciate hospitalists assistance with patient. May consider hep gtt or otherwise for anticoagulation. as above. Patient had pulmonary emboli recently while on Coumadin. Multiple myeloma. Pneumonia. Diastolic dysfunction among others. I believe risk- benefit at this point favors IV antibiotics and observation. There is a chance his appendicitis could get worse or even perforate requiring a more urgent surgery. If possible we would like to convert to heparin drip. He can have clear liquids today we will make him n.p.o. every night in case surgical interv ention is required. Currently no evidence of peritonitis. White blood cell count normal. We will continue to follow along closely. History of Present Illness History of Present Illness This is a 76yM with a PMH significant for multiple myeloma (dx in 2016 and s/p bone marrow txp), on anticoagulation for PE's while on coumadin, BPH, gout who presents to the [facility] ED on 01/17/22 with complaints of abdominal pain. Per patient's abdominal pain started last night, mostly located in the RLQ. Patient has been on Lovenox for the past month for PE's he acquired while on coumadin. He has been on coumadin since 2017. His lovenox was held on as he underwent a bronchoscopy at [facility] yesterday for workup of shortness of breath. He resumed it s/p bronch procedure. Unfortunately last night he developed RLQ abdominal pain, unsure if it was a muscular issue. He denies n/v, f/c. He presented to the ER today due to pain. CT a/p obtained revealed findings concerning for acute appendicitis without abscess. Allergies Allergy/AdvReac Type Severity Reaction Status Date / Time dexamethasone AdvReac Severe Hallucinati Verified 11/16/21 02:14 on meclizine AdvReac Intermediate HALLUCINATI Verified 11/16/21 02:14 ON hydrocodone AdvReac Mild AGITATION Verified 11/16/21 02:14 levofloxacin [From Levaquin] AdvReac Mild muscle Verified 11/16/21 02:14 weakness lisinopril AdvReac Mild Dizziness Verified 11/16/21 02:14 Home Medications Medication Instructions Recorded Confirmed Type acetaminophen 500 mg tablet 1,000 mg PO Q8 PRN 06/28/18 12/11/21 History (Acetaminophen Extra Strength) daratumumab 20 mg/mL intravenous 0 mg IV MONTHLY 06/28/18 12/11/21 History solution polyethylene glycol 3350 17 17 g PO DAILY PRN 06/28/18 12/11/21 History gram/dose oral powder (Miralax) pomalidomide 4 mg capsule 4 mg PO DIRECTED 06/29/18 12/11/21 History acyclovir 400 mg tablet 400 mg PO BID 08/02/18 12/11/21 History pegfilgrastim 6 mg/0.6 mL 6 mg SUBCUT DIRECTED 08/02/18 12/11/21 History (deliverable) wearable subcutaneous injector (Neulasta Onpro) citalopram 10 mg tablet 10 mg PO QAM 04/25/19 12/11/21 History zoledronic acid 4 mg/5 mL 0 mg IV .Q 3 MONTHS 04/25/19 12/11/21 History intravenous solution levalbuterol tartrate 45 1 puffs INH Q6H PRN #15 gm 12/05/19 12/11/21 Rx mcg/actuation aerosol inhaler montelukast 10 mg tablet 10 mg PO DAILY PRN tab 07/25/20 12/11/21 History (Singulair) allopurinol 100 mg tablet 100 mg PO BID #180 tab 02/25/21 12/11/21 Rx potassium citrate 10 mEq (1,080 10 meq PO BID 90 Days #180 tab 02/25/21 12/11/21 Rx mg) tablet,extended release (Urocit-K 10) furosemide 20 mg tablet (Lasix) 20 mg PO QAM 02/28/21 12/11/21 History dutasteride 0.5 mg capsule 0.5 mg PO QAM 10/15/21 12/11/21 History fluticasone furoate 200 1 inh INHALATION QAM 10/15/21 12/11/21 History mcg-vilanterol 25 mcg/dose inhalation powder (Breo Ellipta) dexamethasone 4 mg tablet 8 mg PO DIRECTED 11/16/21 12/11/21 History doxycycline monohydrate 100 mg 100 mg PO BID #20 cap 12/11/21 Rx capsule enoxaparin 150 mg/mL subcutaneous 150 mg SUBCUT DAILY #20 syr 12/29/21 Rx syringe (Lovenox) Patient History Medical History Anemia BASELINE 8-9 RANGE Cancer MULTIPLE MYELOMA (DX'D 2015); stem cell transplant, chemo Depression GERD (gastroesophageal reflux disease) History of nephrolithiasis History of pneumothorax 2019 with lung biopsy [place] (hard of hearing) Irregular heartbeat Osteoporosis 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 Port-A-Cath in place Left chest Pulmonary embolism 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); 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 SOB (shortness of breath) on exertion Thrombocytopenia Tremor Surgical History Bone marrow replaced by transplant History of cataract surgery RT History of chest tube placement History of lung biopsy benign Family History Father Cardiac disorder Mother Cancer Stroke Other No family history of adverse response to anesthesia Social History Smoking Status: Never smoker Second Hand Exposure: No; Hx Alcohol Use: No Hx Substance Use: No Preferred Language: Azeri Communication Ability: Effective Visual Impairment: No 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 Beliefs That Will Affect Care: None marital status: Current Living Situation: Spouse How many Children do You have: 1 Feels Safe at Home: Yes Assistive Devices: None Review of Systems Respiratory: + dyspnea Gastrointestinal: + abdominal pain; no nausea and no vomiting Physical Exam Physical Exam: awake Respiratory: normal respiratory effort Gastrointestinal (Abdomen): Percussion/Palpation: + abdomen tender (RLQ) and abdomen soft Results & Data ([facility]) Vital Signs (Past 12 Hours) Vital Signs Temp Pulse Resp BP Pulse Ox 01/17/22 10:00 73 24 134/89 95 01/17/22 09:30 75 20 123/99 92 01/17/22 09:05 37.5 C 85 20 146/91 H 91 Diagnostic Findings T abd pelvis IV con only CLINICAL HISTORY: Right lower quadrant abdominal pain COMPARISON STUDY: 11/16/2021 CT DOSE: 815.67 mGy.cm TECHNIQUE: Standard CT of the Abdomen and Pelvis was performed with IV contrast. A dose lowering technique was utilized adhering to the principles of ALARA. Contrast Volume: Optiray 320, 94 ml. The patient did not receive oral contrast. FINDINGS: Lung base: Compared to previous examination, asymmetric left basilar atelectasis versus scarring is present. The right lung base is clear. Extensive coronary artery calcifications present. Abdominal cavity: There is no evidence for abdominal mass, adenopathy or ascites. Liver: There is homogeneous attenuation of the liver parenchyma. There is no evidence for enhancing mass lesion. There is mild dilatation of the major intrahepatic biliary duct radicles. Spleen: There is homogeneous attenuation of the splenic parenchyma. There is no enhancing mass lesion. Pancreas: There is homogeneous attenuation of the pancreatic parenchyma. There is no evidence for mass lesion or peripancreatic fluid collection. Gall Bladder: The gallbladder is well distended with no evidence for intraluminal calculi, wall thickening or pericholecystic edema. However, there is mild dilatation of the common bile duct with no evidence for choledocholithiasis. Adrenal glands: The adrenal glands are normal in size and attenuation. There is no evidence for enhancing mass lesion. Kidneys: There is homogeneous attenuation of the renal parenchyma bilaterally. There is no evidence for renal calculus or hydronephrosis. There is no evidence for enhancing mass. Bowel: There has been interval development of acute appendicitis with dilatation of the appendix and enhancement of the wall. Periappendiceal edema is present without evidence for perforation or abscess. The remaining bowel loops are normally placed within the abdomen and pelvis without evidence for dilatation or obstruction. There is no evidence for mass lesion. There is mild fecal stasis. There is no evidence for free air. Bladder: The bladder is within normal limits with no evidence for focal mass, calculus or diverticulum. : There is no evidence for pelvic mass or adenopathy. There is no evidence for pelvic ascites. The prostate is moderately enlarged. Vasculature: There is no evidence for aneurysmal dilatation of the abdominal aorta. Atherosclerotic calcification is present. Osseous structures: There is no acute osseous pathology. Degenerative changes are seen within the spine. There is abnormal trabecular thickening of the iliac wings bilaterally suspicious for Paget's disease. Lucencies are present and the appearance of lytic lesions. However, this may relate to osteoporosis. There is also osteoporosis spine and suspicious of lytic lesions as well. IMPRESSION: 1. Interval development of acute appendicitis without evidence for perforation or abscess. 2. There is also mild dilatation of the common bile duct and major intrahepatic biliary duct radicles. No evidence of choledocholithiasis or pancreatic head mass. 3. Additional nonacute findings are delineated above. ACT 112: Negative or not required by law. Electronically signed by: Gt Jennings M.D. 01/17/2022 10:59 AM PG Care Time/CCT Total # of Minutes Spent Total Time Spent with Patient: Total time spent is greater than 50% in coordination of care (as documented) at patient's floor/unit and/or counseling patient: Coding Level of Care Code 39429 Initial Inpt Care Lvl 3 Diagnoses Acute appendicitis K35.80
[2022-01-17] MEDS ORDERED: HEPARIN 25000 UNIT/500 ML D5W IV ONE (12:05)
[2022-01-17] MEDS ORDERED: HEPARIN SOD (PORCINE) 1000 UNIT/ML IV ONE (12:05)
[2022-01-17 12:07] LABS: Appearance Urine Clear (Clear); Bacteria Urine Automated Negative (Negative); Bilirubin Urine Negative (Negative); Blood Urine 1+ (Negative); Cast Urine Automated 0 /lpf (0-5); Color Urine Yellow; Glucose Urine UA Negative (Negative); Ketones Urine Negative (Negative); Leukocyte Esterase Urine Negative (Negative); Nitrite Urine Negative (Negative); Protein Urine Negative (Negative); Specific Gravity Urine > 1.045 (1.000-1.030); Urobilinogen Urine Negative (Negative); pH Urine 5.5 (4.5-7.5)
[2022-01-17] MEDS ORDERED: HEPARIN SODIUM/DEXTROSE 25,000 UNITS/500 ML BAG IV SCH (12:15)
[2022-01-17] MEDS ORDERED: CITALOPRAM 20 MG TAB PO ONE (12:30)
[2022-01-17] MEDS ORDERED: FUROSEMIDE 20 MG TAB PO ONE (12:30)
[2022-01-17] MEDS ORDERED: ACYCLOVIR 400 MG TAB PO ONE (12:30)
[2022-01-17] MEDS ORDERED: PANTOprazole 40 MG TAB PO PRN (12:42)
[2022-01-17] MEDS ORDERED: LEVALBUTEROL TARTRATE 15 GM HFA.AER.AD INH PRN (14:06)
[2022-01-17] MEDS ORDERED: MoRPHine SULFATE 2 MG/ML CARP IV PRN (14:06)
[2022-01-17] MEDS ORDERED: ACETAMINOPHEN 325 MG TAB PO PRN (14:06)
[2022-01-17] MEDS ORDERED: PIPERACILL/TAZOBAC CONSULT ACTIVE PRN (14:06)
[2022-01-17] MEDS ORDERED: POLYETHYLENE (MIRALAX) 17 GM PACK PO PRN (14:06)
[2022-01-17] MEDS ORDERED: ONDANSETRON INJ 2 MG/ML 2 ML VIAL IV PRN (14:06)
[2022-01-17] MEDS ORDERED: MoRPHine SULFATE 4 MG/ML 1 ML CARP\\VIAL IV PRN (14:06)
[2022-01-17] MEDS ORDERED: MONTELUKAST SODIUM 10 MG TABLET PO PRN (14:06)
[2022-01-17] MEDS ORDERED: PROMETHAZINE HCL 12.5 MG in SODIUM CHLORIDE 0.9% 50 ML IV PRN (14:06)
[2022-01-17] MEDS: PIPERACILLIN/TAZOBACTAM 3.375 GM in DEXTROSE 5% 100 ML IV SCH (18:31)
[2022-01-17] MEDS: ACYCLOVIR 400 MG TAB PO SCH (20:00)
[2022-01-17] MEDS: allopurinoL 100 MG TAB PO SCH (20:00)
[2022-01-17] MEDS: POTASSIUM CITRATE 10 MEQ TAB PO SCH (20:00)
[2022-01-17 20:35] LABS: Partial Thromboplastin Ratio 1.2; Partial Thromboplastin Time 32.8 Seconds (21.0-31.0)
[2022-01-17] MEDS ORDERED: Heparin IV Adult Wt-Based Standard *NO* Bolus Protocol IV ONE (21:00)
[2022-01-17] MEDS: HEPARIN SODIUM/DEXTROSE 25,000 UNITS/500 ML BAG IV SCH (21:40)
[2022-01-18] MEDS: PIPERACILLIN/TAZOBACTAM 3.375 GM in DEXTROSE 5% 100 ML IV SCH ×3 (01:50→17:24)
[2022-01-18 04:04] LABS: Hematocrit (blood only) 39.2 % (42-52); Mean Corpuscular Hemoglobin 33.7 pg (25-34); Mean Corpuscular Hgb Conc 33.2 g/dL (32-36); Mean Corpuscular Volume 101.6 fL (80-100); Mean Platelet Volume 10.1 fL (7.4-10.4); Platelet Count 199 K/uL (130-400); RDW Coefficient of Variation 17.8 % (11.5-14.5); RDW Standard Deviation 66.1 fL (36.4-46.3); Red Blood Count 3.86 M/uL (4.7-6.1); White Blood Count 7.72 K/uL (4.8-10.8)
[2022-01-18 04:26] LABS: BUN Creatinine Ratio 11.5 (10-20); Calcium 8.3 mg/dl (8.5-10.1); Creatinine Clr Calc Pharmacy 67.6 ml/min; Est GFR (African American) 88.6 ml/min; Est GFR (Non-African American) 76.5 ml/min; Potassium 3.5 mmol/L (3.5-5.1)
[2022-01-18 04:30] LABS: Anisocytosis Present; Basophils # (auto) 0.03 K/uL (0-0.2); Basophils % (auto) 0.4 %; Eosinophils # (auto) 0.12 K/uL (0-0.5); Eosinophils % (auto) 1.6 %; Immature Granulocytes # (auto) 0.04 K/uL (0.00-0.02); Immature Granulocytes % (auto) 0.5 %; Lymphocytes # (auto) 1.14 K/uL (1.2-3.4); Lymphocytes % (auto) 14.8 %; Monocytes # (auto) 0.81 K/uL (0.11-0.59); Monocytes % (auto) 10.5 %; Neutrophils # (auto) 5.58 K/uL (1.4-6.5); Neutrophils % (auto) 72.2 %; Poikilocytosis Present
[2022-01-18 04:35] LABS: Partial Thromboplastin Ratio 2.2
[2022-01-18 04:39] LABS: Partial Thromboplastin Time 59.6 Seconds (21.0-31.0)
--- NOTE | 2022-01-18 07:19 | Electrocardiogram Report ---
Test Reason : Blood Pressure : / mmHG Vent. Rate : 070 BPM Atrial Rate : 070 BPM P-R Int : 126 ms QRS Dur : 094 ms QT Int : 402 ms P-R-T Axes : 019 -31 035 degrees QTc Int : 434 ms Sinus rhythm with Premature atrial complexes Left axis deviation Moderate voltage criteria for LVH, may be normal variant Abnormal ECG When compared with ECG of 11-DEC-2021 12:11, No significant change was found Confirmed by Saman Vasquez ([id number]) on 01/18/2022 7:18:57 AM Referred By: REFERRED SELF Confirmed By:Chucho Vasquez
[2022-01-18] MEDS: FUROSEMIDE 20 MG TAB PO SCH (08:08)
[2022-01-18] MEDS: ACYCLOVIR 400 MG TAB PO SCH ×2 (08:08→19:54)
[2022-01-18] MEDS: allopurinoL 100 MG TAB PO SCH ×2 (08:08→19:54)
[2022-01-18] MEDS: FLUTICASONE/VILANTEROL 200/25MCG 14 PUFFS/INHALER INH SCH (08:09)
[2022-01-18] MEDS: POTASSIUM CITRATE 10 MEQ TAB PO SCH (08:09)
[2022-01-18] MEDS: CITALOPRAM 20 MG TAB PO SCH (08:09)
--- NOTE | 2022-01-18 09:25 | Surgery Progress Note ---
Date of Service January 18, 2022 Assessment & Plan (1) Acute appendicitis: Plan: Clinically improving with conservative management. Continue IV antibiotics. We will let him try full liquids today but will make him n.p.o. after midnight again just in case he would worsen. WBC 7000 he is afebrile. (2) History of pulmonary embolism: (3) Multiple myeloma: Admission and Anticipated Discharge Date Admission Date: January 17, 2022 Subjective Patient seen. Right lower quadrant pain much improved from yesterday. Still present but mild today. No new complaints. Physical Exam Constitutional: WD/WN, vitals as above no acute distress and not ill appearing Eyes: PERRL, conjunctivae normal, anicteric sclerae EOM intact bilaterally ENMT: external ear and nose normal, oropharynx normal Ears: no hearing impairment Neck: trachea midline, no thyromegaly Respiratory: normal respiratory effort; no respiratory distress and does not use accessory muscles Cardiovascular: Rate/Rhythm: regular rate and regular rhythm Gastrointestinal (Abdomen): Soft. Mild right lower quadrant tenderness to palpation. Much improved from yesterday. Skin: no rashes, warm and dry Psychiatric: Orientation: alert, oriented x 3 and cooperative Results & Data ([facility]) Vital Signs (Past 12 Hours) Vital Signs Temp Pulse Resp BP Pulse Ox 01/18/22 07:21 36.7 C 73 22 116/63 95 01/17/22 22:02 36.4 C L 73 18 123/69 92 PG Care Time/CCT Total # of Minutes Spent Total Time Spent with Patient: Total time spent is greater than 50% in coordination of care (as documented) at patient's floor/unit and/or counseling patient: Coding Level of Care Code 51769 Subseq Hosp Care Lvl 3 Diagnoses Acute appendicitis K35.80 Acute appendicitis type: unspecified acute appendicitis type History of pulmonary embolism Z86.711 Multiple myeloma C90.00 (1) Acute appendicitis Acute appendicitis type: unspecified acute appendicitis type Qualified Code(s): K35.80 - Unspecified acute appendicitis
[2022-01-18] MEDS: DOXYCYCLINE HYCLATE 100 MG in DEXTROSE 5% 100 ML IV SCH ×2 (09:48→20:30)
[2022-01-18] MEDS: HEPARIN SODIUM/DEXTROSE 25,000 UNITS/500 ML BAG IV SCH (14:07)
--- NOTE | 2022-01-18 14:49 | Hospitalist Progress Note ---
Date of Service January 18, 2022 Assessment & Plan (1) Acute appendicitis: Plan: -CT A/P: Acute appendicitis without evidence of perforation or abscess High surgical comorbidity. Surgery consulted. Medical management at this time. Patient clinically improving. Full liquids, then n.p.o. again at midnight. Continue Zosyn Morphine scaled 2-4 mg as needed as needed for pain every 4 hours, has not needed today (2) History of pulmonary embolism: Plan: -Had previously been on Coumadin for PE s/p stem cell transplant in 2017, had recurrence of PEs this past month while on Coumadin and was switched to Lovenox. Lovenox held 01/15 for bronchoscopy yesterday resumed 01/16. -Converted to heparin drip in case of need for surgical intervention Continue heparin at this time (3) (HFpEF) heart failure with preserved ejection fraction: Plan: -Patient noted with history of diastolic dysfunction, though most recent echo (10/21/21) did not reflect this. -Euvolemic on exam without lung crackles, JVD, peripheral edema. -Continue Lasix 20 mg daily w/ KCl suppl 10 mg. (4) Cancer: Plan: -Multiple myeloma on chronic chemotherapy, due this week on 01/22. Previously seen by Dr. Rodriguez, now Jayshree Mora. -Acyclovir 400 mg BID ppx. -Takes dexamethasone 8 mg every , Neulasta on chemo days. Defer chemotherapy in the setting of acute infection (5) SOB (shortness of breath) on exertion: Plan: -Ongoing for weeks, with exertion, no change in baseline today. Had bronchoscopy yesterday for further workup, results of that study are pending. -Sees Dr. Marbella phan/ [facility]. -Is on RA with SpO2 > 95%, has Breo and albuterol inhalers. Will continue these. -No evidence of volume overload, pneumonia, or post-procedural lung injury on exam, CXR. (6) Depression: Plan: -Continue celexa 10 mg. (7) GERD (gastroesophageal reflux disease): Plan: -Chronic, stable. -PPI prn. (8) Anemia: Plan: -H/H stable, no acute issues. (9) BPH loc w urin obs/LUTS: Plan: -Continue dutasteride. (10) Gout: Plan: -Continue allopurinol. Plan: -Admit to med/surg. -SCDs, Heparin drip for DVT ppx. -DNR/DNI. Admission and Anticipated Discharge Date Admission Date: January 17, 2022 Subjective Seen bedside. Patient reports his pain is greatly improved compared to yesterday. He has not had any fever, chills, sweats, difficulty breathing, worsened abdominal pain, diarrhea overnight. Denies chest pain, chest pressure. No bleeding. Clinically improving, seen by surgery. Will trial full liquids today, and then n.p.o. after midnight again in case of worsening. No fevers, continue heparin. Review of Systems Review of Systems: All systems reviewed & are unremarkable except as noted in Subjective Physical Exam Physical Exam: General: A&Ox3. NAD. Cooperative. HEENT: Atraumatic, normocephalic. Vision and hearing grossly intact. Pulm: Scattered expiratory wheezes, -rales, -rhonchi. Symmetrical chest rise. No increase in work of breathing. No respiratory distress. Cardiac: RRR, -mrg. Radial pulses intact and symmetrical. Abdominal: Trace right lower quadrant tenderness greatly improved from prior. No rebound tenderness. Bowel sounds intact. Results & Data Results & Data ([facility]) Vital Signs (Past 12 Hours) Vital Signs Temp Pulse Resp BP Pulse Ox 01/18/22 07:21 36.7 C 73 22 116/63 95 PG Care Time/CCT Total # of Minutes Spent Total Time Spent with Patient: Total time spent is greater than 50% in coordination of care (as documented) at patient's floor/unit and/or counseling patient: Coding Level of Care Code 31802 Subseq Hosp Care Lvl 2 Diagnoses Acute appendicitis K3.80 Acute appendicitis type: unspecified acute appendicitis type History of pulmonary embolism Z86.711 (HFpEF) heart failure with preserved ejection fraction I50.30 Cancer C80.1 SOB (shortness of breath) on exertion R06.02 Depression F32.9 GERD (gastroesophageal reflux disease) K21.9 Anemia D64.9 BPH loc w urin obs/LUTS N40.1 Gout M10.9 (1) Acute appendicitis Acute appendicitis type: unspecified acute appendicitis type Qualified Cod e(s): K35.80 - Unspecified acute appendicitis
[2022-01-18] MEDS ORDERED: MoRPHine SULFATE 2 MG/ML CARP IV PRN (14:50)
[2022-01-18] MEDS ORDERED: MoRPHine SULFATE 4 MG/ML 1 ML CARP\\VIAL IV PRN (14:50)
[2022-01-18] MEDS: POTASSIUM CHLORIDE 10 MEQ TABCR PO SCH (19:54)
[2022-01-19] MEDS: PIPERACILLIN/TAZOBACTAM 3.375 GM in DEXTROSE 5% 100 ML IV SCH ×2 (01:55→10:01)
[2022-01-19 06:42] LABS: Basophils # (auto) 0.03 K/uL (0-0.2); Basophils % (auto) 0.5 %; Eosinophils # (auto) 0.39 K/uL (0-0.5); Eosinophils % (auto) 6.3 %; Hematocrit (blood only) 34.5 % (42-52); Hemoglobin 11.3 g/dL (14.0-18.0); Immature Granulocytes # (auto) 0.01 K/uL (0.00-0.02); Immature Granulocytes % (auto) 0.2 %; Lymphocytes # (auto) 1.04 K/uL (1.2-3.4); Lymphocytes % (auto) 16.8 %; Mean Corpuscular Hemoglobin 33.1 pg (25-34); Mean Corpuscular Hgb Conc 32.8 g/dL (32-36); Mean Corpuscular Volume 101.2 fL (80-100); Mean Platelet Volume 10.8 fL (7.4-10.4); Monocytes # (auto) 0.63 K/uL (0.11-0.59); Monocytes % (auto) 10.2 %; Platelet Count 219 K/uL (130-400); RDW Coefficient of Variation 17.4 % (11.5-14.5); RDW Standard Deviation 64.9 fL (36.4-46.3); Red Blood Count 3.41 M/uL (4.7-6.1)
[2022-01-19 06:55] LABS: BUN Creatinine Ratio 9.8 (10-20); Calcium 8.2 mg/dl (8.5-10.1); Creatinine Clr Calc Pharmacy 79.1 ml/min; Est GFR (African American) 99.6 ml/min; Est GFR (Non-African American) 85.9 ml/min; Potassium 3.3 mmol/L (3.5-5.1)
[2022-01-19] MEDS: HEPARIN SODIUM/DEXTROSE 25,000 UNITS/500 ML BAG IV SCH (07:23)
[2022-01-19 07:35] LABS: Partial Thromboplastin Ratio > 5.1
[2022-01-19 07:43] LABS: Partial Thromboplastin Time > 139.0 Seconds (21.0-31.0)
[2022-01-19] MEDS: FUROSEMIDE 20 MG TAB PO SCH (09:06)
[2022-01-19] MEDS: allopurinoL 100 MG TAB PO SCH ×2 (09:06→20:50)
[2022-01-19] MEDS: POTASSIUM CHLORIDE 10 MEQ TABCR PO SCH (09:06)
[2022-01-19] MEDS: ACYCLOVIR 400 MG TAB PO SCH ×2 (09:07→20:50)
[2022-01-19] MEDS: CITALOPRAM 20 MG TAB PO SCH (09:07)
[2022-01-19] MEDS: DOXYCYCLINE HYCLATE 100 MG in DEXTROSE 5% 100 ML IV SCH (09:11)
[2022-01-19] MEDS: FLUTICASONE/VILANTEROL 200/25MCG 14 PUFFS/INHALER INH SCH (09:12)
[2022-01-19 09:40] LABS: Partial Thromboplastin Ratio 3.2
[2022-01-19 09:51] LABS: Partial Thromboplastin Time 89.1 Seconds (21.0-31.0)
--- NOTE | 2022-01-19 10:50 | Surgery Progress Note ---
Date of Service January 19, 2022 Assessment & Plan (1) Acute appendicitis: Plan: doing well clinically can slowly advance diet d/c home tomorrow on 14 days of antibiotics. f/u with me in 1 week. (2) Multiple myeloma: (3) History of pulmonary embolism: (4) Diastolic dysfunction: Admission and Anticipated Discharge Date Admission Date: January 17, 2022 Subjective pt seen. doing well. almost pain free Physical Exam Constitutional: WD/WN, vitals as above no acute distress and not ill appearing Eyes: PERRL, conjunctivae normal, anicteric sclerae EOM intact bilaterally ENMT: external ear and nose normal, oropharynx normal Ears: no hearing impairment Neck: trachea midline, no thyromegaly Respiratory: normal respiratory effort; no respiratory distress and does not use accessory muscles Gastrointestinal (Abdomen): soft. very faint ttp RLQ. much improved. Skin: no rashes, warm and dry Psychiatric: Orientation: alert, oriented x 3 and cooperative Results & Data ([facility]) Vital Signs (Past 12 Hours) Vital Signs Temp Pulse Resp BP Pulse Ox 01/19/22 07:10 36.7 C 75 18 134/76 93 PG Care Time/CCT Total # of Minutes Spent Total Time Spent with Patient: Total time spent is greater than 50% in coordination of care (as documented) at patient's floor/unit and/or counseling patient: Coding Level of Care Code 81802 Subseq Hosp Care Lvl 3 Diagnoses Acute appendicitis K35.80 Multiple myeloma C90.00 History of pulmonary embolism Z86.711 Diastolic dysfunction I51.89
--- NOTE | 2022-01-19 12:13 | Hospitalist Progress Note ---
Date of Service January 19, 2022 Assessment & Plan (1) Acute appendicitis: Plan: -CT A/P: Acute appendicitis without evidence of perforation or abscess High surgical comorbidity. Surgery consulted. Medical management at this time. Patient clinically improving. Zosyn converted to Rocephin, Flagyl in anticipation of potential p.o. conversion for discharge If continuing to do well will discharge on 2 weeks of oral therapy For/benefits of deferring surgical intervention for appendicitis discussed with patient. He has a nonperforated appendicitis without abscess. Recurrence rate or progression to surgery approximately 30%. On shared decision making patient would prefer to continue with medical therapy as planned, understands return precautions if needed. Progressed to low residue diet (2) History of pulmonary embolism: Plan: -Had previously been on Coumadin for PE s/p stem cell transplant in 2016, had recurrence of PEs this past month while on Coumadin and was switched to Lovenox. Lovenox held 01/15 for bronchoscopy yesterday resumed 01/16. -Converted to heparin drip in case of need for surgical intervention Continue heparin at this time We will resume DOAC tomorrow if continuing to do well (3) (HFpEF) heart failure with preserved ejection fraction: Plan: -Patient noted with history of diastolic dysfunction, though most recent echo (10/21/21) did not reflect this. -Euvolemic on exam without lung crackles, JVD, peripheral edema. -Continue Lasix 20 mg daily w/ KCl suppl 10 mg. (4) Cancer: Plan: -Multiple myeloma on chronic chemotherapy, due this week on 01/22. Previously seen by Dr. Rodriguez, now Jayshree Mora. -Acyclovir 400 mg BID ppx. -Takes dexamethasone 8 mg every , Neulasta on chemo days. Defer chemotherapy in the setting of acute infection (5) SOB (shortness of breath) on exertion: Plan: -Ongoing for weeks, with exertion, no change in baseline today. Had bronchoscopy yesterday for further workup, results of that study are pending. -Sees Dr. Marbella phan/ [facility] pulmonology. -Is on RA with SpO2 > 95%, has Breo and albuterol inhalers. Will continue these. -No evidence of volume overload, pneumonia, or post-procedural lung injury on exam, CXR. (6) Depression: Plan: -Continue celexa 10 mg. (7) GERD (gastroesophageal reflux disease): Plan: -Chronic, stable. -PPI prn. (8) Anemia: Plan: -H/H stable, no acute issues. (9) BPH loc w urin obs/LUTS: Plan: -Continue dutasteride. (10) Gout: Plan: -Continue allopurinol. Plan: -Admit to med/surg. -SCDs, Heparin drip for DVT ppx. -DNR/DNI. Admission and Anticipated Discharge Date Admission Date: January 17, 2022 Subjective Patient seen at the bedside. He reports his abdominal pain completely resolved when not eating, has some mild discomfort "not pain, just awareness "after eating full liquids. Overall he feels greatly improved. Denies fever, chills, sweats, shortness of breath, difficulty breathing, cough, lightheadedness, dizziness. Patient does have some dyspnea at baseline, but he feels this has n ot changed and he is not short of breath at bedside assessment. Did discuss with surgery, patient is doing well and would prefer to avoid surgical intervention if possible. With this in mind we will complete 72 hours of IV antibiotics and 2 weeks of orals if he continues to progress well. Did discuss that there is an approximately 30% recurrence rate and rate of requiring readmission or progression to surgery. On shared decision making patient would prefer to defer surgery given his comorbidities and continue medical treatment as planned. Review of Systems Review of Systems: All systems reviewed & are unremarkable except as noted in Subjective Physical Exam Physical Exam: General: A&Ox3. NAD. Cooperative. HEENT: Atraumatic, normocephalic. Vision and hearing grossly intact. Pulm: Scattered expiratory wheezes, -rales, -rhonchi. Symmetrical chest rise. No increase in work of breathing. No respiratory distress. Cardiac: RRR, -mrg. Radial pulses intact and symmetrical. Abdominal: Trace right lower quadrant tenderness greatly improved from prior. No rebound tenderness. Bowel sounds intact. Results & Data Results & Data ([facility]) Vital Signs (Past 12 Hours) Vital Signs Temp Pulse Resp BP Pulse Ox 01/19/22 07:10 36.7 C 75 18 134/76 93 PG Care Time/CCT Total # of Minutes Spent Total Time Spent with Patient: Total time spent is greater than 50% in coordination of care (as documented) at patient's floor/unit and/or counseling patient: Coding Level of Care Code 01010 Subseq Hosp Care Lvl 2 Diagnoses Acute appendicitis K35.80 Acute appendicitis type: unspecified acute appendicitis type History of pulmonary embolism Z86.711 (HFpEF) heart failure with preserved ejection fraction I50.30 Cancer C80.1 SOB (shortness of breath) on exertion R06.02 Depression F32.9 GERD (gastroesophageal reflux disease) K21.9 Anemia D64.9 BPH loc w urin obs/LUTS N40.1 Gout M10.9 (1) Acute appendicitis Acute appendicitis type: unspecified acute appendicitis type Qualified Code(s): K35.80 - Unspecified acute appendicitis
[2022-01-19] MEDS ORDERED: cefTRIAXone SODIUM 2,000 MG in DEXTROSE 5% 50 ML IV SCH (12:30)
[2022-01-19] MEDS: metroNIDAZOLE 500 MG TAB PO SCH ×2 (14:16→20:50)
[2022-01-19 16:16] LABS: Partial Thromboplastin Ratio 3.4
[2022-01-19 16:56] LABS: Partial Thromboplastin Time 93.2 Seconds (21.0-31.0)
[2022-01-19] MEDS: POTASSIUM CITRATE 10 MEQ TAB PO SCH (21:15)
[2022-01-19 23:47] LABS: Partial Thromboplastin Ratio 1.5; Partial Thromboplastin Time 39.9 Seconds (21.0-31.0)
[2022-01-20 06:37] LABS: Basophils # (auto) 0.04 K/uL (0-0.2); Basophils % (auto) 0.7 %; Eosinophils # (auto) 0.42 K/uL (0-0.5); Eosinophils % (auto) 7.2 %; Hematocrit (blood only) 37.6 % (42-52); Hemoglobin 12.5 g/dL (14.0-18.0); Immature Granulocytes # (auto) 0.01 K/uL (0.00-0.02); Immature Granulocytes % (auto) 0.2 %; Lymphocytes # (auto) 1.29 K/uL (1.2-3.4); Lymphocytes % (auto) 22.2 %; Mean Corpuscular Hemoglobin 33.8 pg (25-34); Mean Corpuscular Hgb Conc 33.2 g/dL (32-36); Mean Corpuscular Volume 101.6 fL (80-100); Monocytes # (auto) 0.33 K/uL (0.11-0.59); Monocytes % (auto) 5.7 %; Neutrophils # (auto) 3.73 K/uL (1.4-6.5); Platelet Count 237 K/uL (130-400); RDW Coefficient of Variation 17.3 % (11.5-14.5); RDW Standard Deviation 64.5 fL (36.4-46.3); White Blood Count 5.82 K/uL (4.8-10.8)
[2022-01-20 06:57] LABS: Calcium 8.3 mg/dl (8.5-10.1); Creatinine Clr Calc Pharmacy 81.1 ml/min; Est GFR (African American) 100.6 ml/min; Est GFR (Non-African American) 86.8 ml/min; Potassium 3.5 mmol/L (3.5-5.1)
[2022-01-20 07:32] LABS: Partial Thromboplastin Ratio 1.5; Partial Thromboplastin Time 41.8 Seconds (21.0-31.0)
[2022-01-20] MEDS: HEPARIN SODIUM/DEXTROSE 25,000 UNITS/500 ML BAG IV SCH (07:54)
--- NOTE | 2022-01-20 08:23 | Surgery Progress Note ---
Date of Service January 20, 2022 Assessment & Plan (1) Acute appendicitis: Plan: Patient doing well Tolerating a diet. Pain minimal and is virtually non existent at rest WBC 5, VSS and patient afebrile Will plan on discharge with a course of 2 weeks po abx & f/u with Dr. Thompson in 1 week Admission and Anticipated Discharge Date Admission Date: January 17, 2022 Subjective Patient said he is feeling well. No pain at rest. He is tolerating a diet. Some minimal pain with palpation. Physical Exam Physical Exam: awake/alert, no acute distress Gastrointestinal (Abdomen): Percussion/Palpation: + abdomen tender (very mild discomfort to rlq palpation) and abdomen soft Results & Data ([facility]) Vital Signs (Past 12 Hours) Vital Signs Temp Pulse Pulse Resp BP Pulse Ox 01/20/22 07:35 36.7 C 90 18 132/77 91 01/19/22 22:47 36.9 C 65 16 125/65 95 PG Care Time/CCT Total # of Minutes Spent Total Time Spent with Patient: Total time spent is greater than 50% in coordination of care (as documented) at patient's floor/unit and/or counseling patient: Coding Level of Care Code 64847 Subseq Hosp Care Lvl 1 Diagnoses Acute appendicitis K35.80 Acute appendicitis type: unspecified acute appendicitis type (1) Acute appendicitis Acute appendicitis type: unspecified acute appendicitis type Qualified Code(s): K35.80 - Unspecified acute appendicitis
[2022-01-20] MEDS ORDERED: ENOXAPARIN 150 MG/ML SYR SQ SCH (09:00)
[2022-01-20] MEDS ORDERED: CEFDINIR 300 MG CAP PO SCH (09:00)
[2022-01-20] MEDS: metroNIDAZOLE 500 MG TAB PO SCH ×2 (09:24→13:59)
[2022-01-20] MEDS: ACYCLOVIR 400 MG TAB PO SCH (09:24)
[2022-01-20] MEDS: FUROSEMIDE 20 MG TAB PO SCH (09:24)
[2022-01-20] MEDS: allopurinoL 100 MG TAB PO SCH (09:25)
[2022-01-20] MEDS: CITALOPRAM 20 MG TAB PO SCH (09:25)
[2022-01-20] MEDS: FLUTICASONE/VILANTEROL 200/25MCG 14 PUFFS/INHALER INH SCH (09:25)
[2022-01-20] MEDS: POTASSIUM CITRATE 10 MEQ TAB PO SCH (09:25)
[2022-01-20] MEDS ORDERED: HEPARIN 100 UNIT/ML 5ML FLUSH FLUSH PRN (11:17)
--- NOTE | 2022-01-20 11:57 | Discharge Summary ---
Date of Service January 20, 2022 Admission HPI Per Admitting Provider Mr. Rodriguez is a 76yo male with a PMH significant for multiple myeloma (diagnosed 2016, on chronic chemotherapy), history of PE (on lovenox), gout, BPH, and GERD presents with RLQ pain. Pain began last night, is sharp, stabbing in nature, rates 6/10. Repots it has been present for a few months intermittently, but much worse starting last night. Laying still helps, as soon as he moves or upon palpation in RLQ, pain worsens. No noted remitting factors, tried Tylenol x3 1000mg tablets throughout the night. Was able to sleep a few hours but woke up in pain. Additionally, he has not had a BM in a few days, does have some constipation at baseline, takes Miralax as needed at home. Otherwise without fever/chills, chest pain/tightness, palpitations, acute change to chronic SOB, cough, nausea, vomiting, diarrhea, hematochezia, melena, increased urinary urgency/frequency, dysuria, or hematuria. Had a bronchoscopy yesterday in [place] for chronic shortness of breath worsening over several months. Have not heard from the doctor regarding the bronchoscopy yet, are awaiting final results. Has inhalers at home but does not use oxygen. No shortness of breath at rest, but fatigues quickly and 'starts puffing' quickly with exertion. In ED, VS are wnl, stable. Labs significant for PTT 109.1, lipase 196. CXR with evidence for small left pleural effusion and left basilar atelectasis. CT A/P shows interval development of acute appendicitis without evidence for perforation or abscess. There is also mild dilatation of the common bile duct and major intrahepatic biliary duct radicles. No evidence of choledocholithiasis or pancreatic head mass. Has received Zosyn and IVF in ED, general surgery consulted. Principal Diagnosis Appendicitis Discharge Exam General: A&Ox3. NAD. Cooperative. HEENT: Atraumatic, normocephalic. Vision and hearing grossly intact. Pulm: Scattered expiratory wheezes, -rales, -rhonchi. Symmetrical chest rise. No increase in work of breathing. No respiratory distress. Cardiac: RRR, -mrg. Radial pulses intact and symmetrical. Abdominal:NT to palpation. No rebound tenderness. Bowel sounds intact. Discharge Data Allergies Allergy/AdvReac Type Severity Reaction Status Date / Time dexamethasone AdvReac Severe Hallucinati Verified 11/16/21 02:14 on meclizine AdvReac Intermediate HALLUCINATI Verified 11/16/21 02:14 ON hydrocodone AdvReac Mild AGITATION Verified 11/16/21 02:14 levofloxacin [From Levaquin] AdvReac Mild muscle Verified 11/16/21 02:14 weakness lisinopril AdvReac Mild Dizziness Verified 11/16/21 02:14 Consultations 01/17/22 11:19 ED Decision to Admit Stat 01/17/22 11:44 Consult General Surgery Stat Ordered Studies 01/17/22 09:17 CT abd pelvis IV con only Stat Hospital Course (1) Acute appendicitis: Yvan is a 76-year-old male with acute appendicitis who underwent medical therapy and deferred surgical intervention due to comorbidity risk. He improved while on antibiotics and was discharged on antibiotics as below To do as outpatient 1. Complete 14 days of antibiotics with cefdinir 300 mg twice daily and Flagyl 500 mg 3 times daily 2. Weekly CBC/BMP while undergoing antibiotic treatment 3. Hold medial suppressants in the setting of active infection, resume per outpatient provider instruction if clinically well completing antibiotic course 4. Resume DOAC on discharge 5. Strict follow-up and return precautions discussed with patient. -CT A/P: Acute appendicitis without evidence of perforation or abscess High surgical comorbidity. Surgery consulted. Medical management at this time. Patient clinically improving. Zosyn converted to Rocephin, Flagyl in anticipation of potential p.o. conversion for discharge. Discharged on antibiotics as above If continuing to do well will discharge on 2 weeks of oral therapy For/benefits of deferring surgical intervention for appendicitis discussed with patient. He has a nonperforated appendicitis without abscess. Recurrence rate or progression to surgery approximately 30%. On shared decision making patient would prefer to continue with medical therapy as planned, understands return precautions if needed. Progressed to low residue diet MM medication/immunosuppressive/Biologics held while undergoing treatment. Patient to discuss resuming these with his outpatient provider (2) History of pulmonary embolism: -Had previously been on Coumadin for PE s/p stem cell transplant in 2017, had recurrence of PEs this past month while on Coumadin and was switched to Lovenox. Lovenox held 01/15 for bronchoscopy yesterday resumed 01/16. -Converted to heparin drip in case of need for surgical intervention Continue heparin at this time Resume DOAC on discharge (3) (HFpEF) heart failure with preserved ejection fraction: -Patient noted with history of diastolic dysfunction, though most recent echo (10/21/21) did not reflect this. -Euvolemic on exam without lung crackles, JVD, peripheral edema. -Continue Lasix 20 mg daily w/ KCl suppl 10 mg. (4) Cancer: -Multiple myeloma on chronic chemotherapy, due this week on 01/22. Previously seen by Dr. Rodriguez, now Jayshree Mora. -Acyclovir 400 mg BID ppx. -Takes dexamethasone 8 mg every , Neulasta on chemo days. Defer chemotherapy in the setting of acute infection (5) SOB (shortness of breath) on exertion: -Ongoing for weeks, with exertion, no change in baseline today. Had bronchoscopy yesterday for further workup, results of that study are pending. -Sees Dr. Marbella phan/ [facility]. -Is on RA with SpO2 > 95%, has Breo and albuterol inhalers. Will continue these. -No evidence of volume overload, pneumonia, or post-procedural lung injury on exam, CXR. (6) Depression: -Continue celexa 10 mg. (7) GERD (gastroesophageal reflux disease): -Chronic, stable. -PPI prn. (8) Anemia: -H/H stable, no acute issues. (9) BPH loc w urin obs/LUTS: -Continue dutasteride. (10) Gout: -Continue allopurinol. -Admit to med/surg. -SCDs, Heparin drip for DVT ppx. -DNR/DNI. Total Time Total Time Spent Total Time Spent (In Minutes): Time spend day of discharge 31 minutes including direct patient care, documentation, review of labs and images, and coordination of care. Discharge Plan Discharge Items Patient Disposition: Home - Self-Care Reason For Visit: APPENDICITIS Discharge Diagnosis: Appendicitis Activity: Resume your previous activity Non-emergency contact: Primary Care Provider and Surgeon Call non-emergency contact if: you have any medication questions, your symptoms worsen, your pain is not controlled and your pain is worsening Follow-up/Referrals: Guevara Thompson DO [Surgeon] - 01/27/22 10:00 am (Please call the office to schedule follow up in clinic within 1 week) Corazon Vargas MD [Primary Care Provider] - Diet: Other - See Diet Comment Diet Comment: Low Residue Addtl Attending Provider Instructions: You were seen in the hospital for acute appendicitis. There is no evidence on imaging of perforation or abscess. The risk/benefits of surgical intervention versus medical management were discussed with you. Due to your operative risk, unsure decision making medical management and close follow-up was pursued. He clinically improved with antibiotics. You have been discharged to complete 2 additional weeks of Cefdinir and Flagyl as below. Follow-up appointments were scheduled as above. There is an approximate 30% recurrence rate of appendicitis requiring readmission or surgery following medical treatment, if you experience any new or worsening symptoms please seek prompt medical reevaluation. You have been discharged on an antibiotic, cefdinir. Please take cefdinir 300 mg twice daily for 14 days. You have also been discharged on a second antibiotic, Flagyl. Please take Flagyl 500 mg by mouth 3 times daily for 14 days. Please discuss with your outpatient provider any chemo or biologic medications, as these should be held while you have an active infection. Your pomalidomide and daratumumab have been continued on your med list to prevent them from falling off your medication list, but please discuss these medications with your primary care provider before restarting. You should have a weekly CBC/CMP performed by your primary care physician to follow your blood work while undergoing treatment. Please discuss this at your follow-up appointment which should be scheduled within 1 week. If you do not receive a call from your primary care physician to confirm your appointment within 48 hours, please call their office directly at the number above. If you develop any new or worsening symptoms including fever, chills, sweats, chest pain, chest pressure, difficulty breathing, uncontrolled nausea/vomiting, rash, wheezing, passing out or nearly passing out, bleeding, black/bloody bowel movements, or other new or concerning symptoms please call your primary care physician, or call 911 for re-evaluation in the emergency department if you are very concerned. Pending Studies at Discharge: No Stand-Alone Forms: My [employer], Smoking Cessation Medications and DC Order Prescriptions: New metronidazole 500 mg Tablet 500 mg PO TID 14 Days Qty: 42 RF: 0 cefdinir 300 mg Capsule 300 mg PO BID 14 Days Qty: 28 RF: 0 Continued acetaminophen [Acetaminophen Extra Strength] 500 mg Tablet 1,000 mg PO Q8 PRN (Reason: Fever Or Pain) RF: 0 polyethylene glycol 3350 [Miralax] 17 gram/dose Powder 17 g PO PRN (Reason: Constipation) RF: 0 daratumumab 20 mg/mL Solution 0 mg IV MONTHLY RF: 0 pomalidomide 4 mg capsule 4 mg PO DIRECTED RF: 0 furosemide [Lasix] 20 mg tablet 20 mg PO QAM RF: 0 enoxaparin [Lovenox] 150 mg/mL syringe 150 mg subcut DAILY Qty: 20 RF: 1 potassium citrate [Urocit-K 10] 10 mEq (1,080 mg) tablet extended release 10 meq PO BID 90 Days Qty: 180 RF: 3 allopurinol 100 mg tablet 100 mg PO BID Qty: 180 RF: 3 levalbuterol tartrate 45 mcg/actuation HFA aerosol inhaler 1 puffs INH Q6H PRN (Reason: shortness of breath) Qty: 15 RF: 1 acyclovir 400 mg Tablet 400 mg PO BID RF: 0 Neulasta Onpro 6 mg/0.6 mL Syringe, W/ Wearable Injector 6 mg subcut DIRECTED RF: 0 montelukast [Singulair] 10 mg tablet 10 mg PO MONTHLY PRN (Reason: Allergy Symptoms) RF: 0 citalopram 10 mg tablet 10 mg PO QAM RF: 0 zoledronic acid 4 mg/5 mL Solution 0 mg IV .Q 3 MONTHS RF: 0 Breo Ellipta 200-25 mcg/dose Blister With Device 1 inh INHALATION QAM RF: 0 dutasteride 0.5 mg capsule 0.5 mg PO QAM RF: 0 dexamethasone 4 mg tablet 8 mg PO WK RF: 0 Discontinued doxycycline monohydrate 100 mg capsule 100 mg PO BID Qty: 20 RF: 0 Discharge Orders: Discharge Order (Routine); Ordered 01/20/22 Ordered By: Albert Slater/Other Patient Handouts: What Is Appendicitis? Admission Data Admit Date/Time: 01/17/22 12:26 Attending Provider: Albert Dill Admit Provider: Stephani Wagner Primary Care Provider: Corazon Vargas Other Providers: Albert Dill ; Guevara Thompson Other Interventions: Discharge Summary Assessment (RN) Last Done: 01/20/22 10:32 Coding Level of Care Code D/C DAY MANAGEMENT >30 MINS Diagnoses Acute appendicitis K35.80 Acute appendicitis type: unspecified acute appendicitis type History of pulmonary embolism Z86.711 (HFpEF) heart failure with preserved ejection fraction I50.30 Cancer C80.1 SOB (shortness of breath) on exertion R06.02 Depression F32.9 GERD (gastroesophageal reflux disease) K21.9 Anemia D64.9 BPH loc w urin obs/LUTS N40.1 Gout M10.9
== END 2022-01-20 14:34 | disposition home or self-care (01) | DRG 394 ==
LOC: ED 09:05 → 3W 12:26

== ENCOUNTER 2022-03-01 14:31 | Inpatient (IN) ==
--- NOTE | 2022-03-01 15:09 | Emergency Department Note ---
Impression & Plan Cryptococcal pneumonitis, Hypoxia, Pulmonary infiltrate present on computed tomography, H/O bone marrow transplant ED Provider Note CHIEF COMPLAINT: Shortness of breath HISTORY OF PRESENT ILLNESS: This 76-year-old male patient presents to the emergency department presents emergency department complaint shortness of breath. Patient states he is currently aching antifungal medications related to a pneumonia. He takes fluconazole daily. Does have a history of multiple myeloma and states he had a bone marrow transplant 6 years ago. He states that "it doesn't bother me much anymore." Patient was noted by EMS to have oxygen saturations in the 80s while on room air. After being placed on nasal cannula oxygen the patient is feeling much improved. He denies any fevers, chills, chest pain, abdominal pain. He states he is not able to eat much but this has been going on for several weeks to months. He states he currently resides at home. REVIEW OF SYSTEMS: A review of systems was performed with positives and pertinent negatives listed in the history of present illness. 10 systems were reviewed and are otherwise negative. ALLERGIES: see below MEDICATIONS: see below PMH: see below SOCIAL HISTORY: see below DDx: Reactive airway disease, pneumonia, pneumothorax, COPD, CHF, infections, cardiac ischemia, pulmonary embolism, musculoskeletal, gastrointestinal, as well as other pathologies. PHYSICAL EXAM: Vital signs reviewed. General: Chronically ill-appearing 76-year-old male, in no significant distress. HEENT: No scleral icterus, PERRLA, neck supple. xanthelasma into the left upper eyelid. Cardiovascular: Regular rate and rhythm, no extra sounds. Pulmonary: Coarse breath sounds bilaterally most prominent at the left base, on nasal cannula oxygen with a slightly increased work of breathing. Dry cough. Abdomen: Soft, nontender, nondistended, positive bowel sounds. Musculoskeletal: Atraumatic, no peripheral edema. Neurologic: Patient awake alert and oriented x 3, speech is clear Skin: Warm, dry, no rash EMERGENCY DEPARTMENT COURSE/MDM: This patient was evaluated and appeared to be in no significant distress. IV access was obtained and laboratory work was drawn. Patient was resting comfortably on nasal cannula oxygen on my evaluation. Chest x-ray reveals infiltrative findings. Blood cultures were obtained and the was medicated with IV Zosyn and he is currently on Diflucan. CT imaging of the chest was performed due to his history of pulmonary embolus and infiltrative change on x-ray. Patient is followed by pulmonary medicine and is status post bone marrow transplant. Blood cultures are pending. Patient did receive IV Solu-Medrol and a DuoNeb treatment. Given his complex medical history and increased oxygen requirement, patient was discussed with the hospitalist service for further management. MONITORING: An order for cardiac monitoring was placed and the patient is noted to be in a NSR at 98 beats per minute. RADIOLOGY: see below EKG: Sinus rhythm with marked sinus arrhythmia 97 bpm. Left anterior fascicular block. Incomplete right bundle branch block. Prolonged QTC at 482. No PVC, no PAC. When compared to January 17, 2022 PACs are no longer present. 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 Port-A-Cath in place Left chest Pulmonary embolism 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); 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 SOB (shortness of breath) on exertion Thrombocytopenia Tremor Surgical History Bone marrow replaced by transplant History of cataract surgery RT History of chest tube placement History of lung biopsy benign Family History Father Cardiac disorder Heart disease Mother Cancer Stroke Other No family history of adverse response to anesthesia Social History Smoking Status: Unknown if ever smoked Second Hand Exposure: No; Hx Alcohol Use: No Hx Substance Use: No Preferred Language: Hungarian Communication Ability: Effective Visual Impairment: No Limitations Ware Server Required: Yes Beliefs That Will Affect Care: None marital status: Current Living Situation: Spouse current occupational status: retired How many Children do You have: 0 Feels Safe at Home: Yes Safety Concerns: Feels Safe At This Time during the past year weight has: remained stable Assistive Devices: Walker Allergies Allergies Allergy/AdvReac Type Severity Reaction Status Date / Time dexamethasone AdvReac Severe Hallucinati Verified 03/01/22 16:21 on prednisone AdvReac Severe hallucinati Verified 03/06/22 08:00 ons meclizine AdvReac Intermediate HALLUCINATI Verified 03/01/22 16:21 ON hydrocodone AdvReac Mild AGITATION Verified 03/01/22 16:21 levofloxacin [From Levaquin] AdvReac Mild muscle Verified 03/01/22 16:21 weakness lisinopril AdvReac Mild Dizziness Verified 03/01/22 16:21 Home Meds Home Medications Medication Instructions Recorded Confirmed acetaminophen 500 mg tablet 1,000 mg PO Q8 PRN 06/28/18 03/01/22 (Acetaminophen Extra Strength) daratumumab 20 mg/mL intravenous 0 mg IV MONTHLY 06/28/18 03/01/22 solution polyethylene glycol 3350 17 17 g PO DAILY PRN 06/28/18 03/01/22 gram/dose oral powder (Miralax) pomalidomide 4 mg capsule 4 mg PO DIRECTED 06/29/18 03/01/22 acyclovir 400 mg tablet 400 mg PO BID 08/02/18 03/01/22 pegfilgrastim 6 mg/0.6 mL 6 mg SUBCUT DIRECTED 08/02/18 03/01/22 (deliverable) wearable subcutaneous injector (Neulasta Onpro) citalopram 10 mg tablet 10 mg PO QAM 04/25/19 03/01/22 zoledronic acid 4 mg/5 mL 0 mg IV .Q 3 MONTHS 04/25/19 03/01/22 intravenous solution montelukast 10 mg tablet 10 mg PO MONTHLY PRN tab 07/25/20 03/01/22 (Singulair) furosemide 20 mg tablet (Lasix) 20 mg PO QAM 02/28/21 03/01/22 fluticasone furoate 200 1 inh INHALATION QAM 10/15/21 03/01/22 mcg-vilanterol 25 mcg/dose inhalation powder (Breo Ellipta) dexamethasone 4 mg tablet 8 mg PO WK 11/16/21 03/01/22 fluconazole 100 mg tablet 400 mg PO DAILY 03/01/22 03/01/22 Previous Rx's Medication Instructions Recorded levalbuterol tartrate 45 1 puffs INH Q6H PRN #15 gm 12/05/19 mcg/actuation aerosol inhaler enoxaparin 150 mg/mL subcutaneous See Rx Instructions SUBCUT DAILY 02/20/22 syringe (Lovenox) #30 syr allopurinol 100 mg tablet 100 mg PO BID #180 tab 02/23/22 potassium citrate 10 mEq (1,080 10 meq PO BID 90 Days #180 tab 02/23/22 mg) tablet,extended release (Urocit-K 10) dutasteride 0.5 mg capsule 0.5 mg PO QAM #90 cap 02/26/22 Results & Data (ED) Vital Signs Vital Signs - 24 hr 03/01/22 14:37 03/01/22 16:00 03/01/22 17:00 Temperature 36.8 C Temperature Source Oral Pulse Rate 101 H Pulse Rate [Right Finger] 90 88 Respiratory Rate 18 16 16 Respiratory Effort / Characteristics Non-Labored Spontaneous Non-Labored Respiratory Depth Normal Normal Respiratory Pattern Regular Blood Pressure 146/100 H Blood Pressure [Right Arm] 134/79 Blood Pressure Mean 115 Blood Pressure Mean [Right Arm] 97 Pulse Oximetry 91 93 94 Oxygen Delivery Method Room Air Nasal Cannula Nebulizer Oxygen Flow Rate 2 Sepsis Recent Fever Within 48 Hours No Sepsis New/Unexplained Change in Mental Status No Sepsis Action Taken by Nursing No Action Required Home Medications Current Medication List: was personally reviewed by me Laboratory Data Attestation: I reviewed the patient's lab results. Result diagrams: 03/06/22 06:00 03/06/22 15:53 Lab Results 03/01/22 03/01/22 03/01/22 Range/Units 15:26 15:32 15:32 WBC 11.70 H (4.8-10.8) K/uL RBC 3.79 L (4.7-6.1) M/uL Hgb 12.5 L (14.0-18.0) g/dL Hct 37.2 L (42-52) % MCV 98.2 (80-100) fL MCH 33.0 (25-34) pg MCHC 33.6 (32-36) g/dL RDW Std Deviation 63.0 H (36.4-46.3) fL RDW Coeff of Eyal 17.6 H (11.5-14.5) % Plt Count 119 L (130-400) K/uL MPV 10.3 (7.4-10.4) fL Immature Gran % (Auto) 0.7 % Neut % (Auto) 91.9 % Lymph % (Auto) 3.4 % [place] % (Auto) 3.7 % Eos % (Auto) 0.2 % Baso % (Auto) 0.1 % Neut # (Auto) 10.76 H (1.4-6.5) K/uL Lymph # (Auto) 0.40 L (1.2-3.4) K/uL [place] # (Auto) 0.43 (0.11-0.59) K/uL Eos # (Auto) 0.02 (0-0.5) K/uL Baso # (Auto) 0.01 (0-0.2) K/uL Immature Gran # (Auto) 0.08 H (0.00-0.02) K/uL Sodium 136 (136-145) mmol/L Potassium 3.4 L (3.5-5.1) mmol/L Chloride 104 (98-107) mmol/L Carbon Dioxide 20 L (21-32) mmol/L Anion Gap 12 H (3-11) BUN 18 (6-23) mg/dl Creatinine 1.04 (0.6-1.4) mg/dl Est Cr Clr Drug Dosing Not Reportable Est GFR ( Amer) 80.5 ml/min Est GFR (Non-Af Amer) 69.4 ml/min BUN/Creatinine Ratio 17.3 (10-20) Glucose 105 H (70-99(Fasting)) mg/dl Calcium 8.8 (8.5-10.1) mg/dl Magnesium 1.8 (1.7-2.4) mg/dl Total Bilirubin 0.4 (0.2-1.0) mg/dl AST 13 (13-39) U/L ALT 31 (7-52) U/L Alkaline Phosphatase 62 (34-104) U/L Troponin I High Sens 11.2 (0-20) pg/ml Total Protein 5.6 L (6.0-8.3) gm/dl Albumin 3.3 L (3.4-5.0) gm/dl Globulin 2.3 L (2.5-4.0) gm/dl Albumin/Globulin Ratio 1.4 (0.9-2) TSH (0.300-4.500) uIu/ml Tacrolimus mcg/L SARS-CoV-2 (PCR) NEGATIVE (Negative) Influenza Type A (PCR) Negative (Neg) Influenza Type B (PCR) Negative (Neg) RSV (RT-PCR) Negative (Neg) 03/01/22 03/01/22 Range/Units 15:32 15:32 WBC (4.8-10.8) K/uL RBC (4.7-6.1) M/uL Hgb (14.0-18.0) g/dL Hct (42-52) % MCV (80-100) fL MCH (25-34) pg MCHC (32-36) g/dL RDW Std Deviation (36.4-46.3) fL RDW Coeff of Eyal (11.5-14.5) % Plt Count (130-400) K/uL MPV (7.4-10.4) fL Immature Gran % (Auto) % Neut % (Auto) % Lymph % (Auto) % [place] % (Auto) % Eos % (Auto) % Baso % (Auto) % Neut # (Auto) (1.4-6.5) K/uL Lymph # (Auto) (1.2-3.4) K/uL [place] # (Auto) (0.11-0.59) K/uL Eos # (Auto) (0-0.5) K/uL Baso # (Auto) (0-0.2) K/uL Immature Gran # (Auto) (0.00-0.02) K/uL Sodium (136-145) mmol/L Potassium (3.5-5.1) mmol/L Chloride (98-107) mmol/L Carbon Dioxide (21-32) mmol/L Anion Gap (3-11) BUN (6-23) mg/dl Creatinine (0.6-1.4) mg/dl Est Cr Clr Drug Dosing Est GFR ( Amer) ml/min Est GFR (Non-Af Amer) ml/min BUN/Creatinine Ratio (10-20) Glucose (70-99(Fasting)) mg/dl Calcium (8.5-10.1) mg/dl Magnesium (1.7-2.4) mg/dl Total Bilirubin (0.2-1.0) mg/dl AST (13-39) U/L ALT (7-52) U/L Alkaline Phosphatase (34-104) U/L Troponin I High Sens (0-20) pg/ml Total Protein (6.0-8.3) gm/dl Albumin (3.4-5.0) gm/dl Globulin (2.5-4.0) gm/dl Albumin/Globulin Ratio (0.9-2) TSH 3.634 (0.300-4.500) uIu/ml Tacrolimus <1.0 L mcg/L SARS-CoV-2 (PCR) (Negative) Influenza Type A (PCR) (Neg) Influenza Type B (PCR) (Neg) RSV (RT-PCR) (Neg) Administered Medications Acyclovir (Acyclovir 400 Mg Tab) 400 mg PO BID CYN Stop: 04/01/22 00:26 Last Admin: 03/06/22 08:44 Dose: Not Given Documented by: [id number] Admin: 03/06/22 02:00 Dose: Not Given Documented by: [id number] Admin: 03/05/22 09:05 Dose: 400 mg Documented by: [id number] Admin: 03/04/22 20:31 Dose: 400 mg Documented by: [id number] Admin: 03/04/22 09:00 Dose: Not Given Documented by: [id number] Admin: 03/03/22 20:20 Dose: 400 mg Documented by: [id number] Admin: 03/03/22 08:03 Dose: 400 mg Documented by: [id number] Admin: 03/02/22 20:39 Dose: 400 mg Documented by: [id number] Admin: 03/02/22 08:26 Dose: 400 mg Documented by: [id number] Admin: 03/02/22 01:40 Dose: 400 mg Documented by: [id number] Allopurinol (Allopurinol 100 Mg Tab) 100 mg PO BID CYN Stop: 04/01/22 00:26 Last Admin: 03/06/22 08:44 Dose: Not Given Documented by: [id number] Admin: 03/06/22 02:00 Dose: Not Given Documented by: [id number] Admin: 03/05/22 09:05 Dose: 100 mg Documented by: [id number] Admin: 03/04/22 20:32 Dose: 100 mg Documented by: [id number] Admin: 03/04/22 09:00 Dose: Not Given Documented by: [id number] Admin: 03/03/22 20:19 Dose: 100 mg Documented by: [id number] Admin: 03/03/22 08:04 Dose: 100 mg Documented by: [id number] Admin: 03/02/22 20:38 Dose: 100 mg Documented by: [id number] Admin: 03/02/22 08:26 Dose: 100 mg Documented by: [id number] Admin: 03/02/22 01:40 Dose: 100 mg Documented by: [id number] Citalopram Hydrobromide (Citalopram 20 Mg Tab) 10 mg PO QAM CYN Stop: 04/01/22 08:59 Last Admin: 03/06/22 08:44 Dose: Not Given Documented by: [id number] Admin: 03/05/22 09:05 Dose: 10 mg Documented by: [id number] Admin: 03/04/22 09:00 Dose: Not Given Documented by: [id number] Admin: 03/03/22 08:05 Dose: 10 mg Documented by: [id number] Admin: 03/02/22 08:27 Dose: 10 mg Documented by: [id number] Enoxaparin Sodium (Enoxaparin 100 Mg/1ml Syr) 90 mg SQ Q12 CYN Stop: 04/03/22 16:59 Last Admin: 03/06/22 08:59 Dose: 90 mg Documented by: [id number] Admin: 03/05/22 20:20 Dose: 90 mg Documented by: [id number] Admin: 03/05/22 07:53 Dose: 90 mg Documented by: [id number] Admin: 03/04/22 18:10 Dose: 90 mg Documented by: [id number] Fluconazole (Fluconazole 100 Mg Tab) 400 mg PO DAILY CYN Stop: 04/01/22 08:59 Last Admin: 03/06/22 08:44 Dose: Not Given Documented by: [id number] Admin: 03/05/22 09:05 Dose: 400 mg Documented by: [id number] Admin: 03/04/22 13:48 Dose: Not Given Documented by: [id number] Admin: 03/03/22 08:04 Dose: 400 mg Documented by: [id number] Admin: 03/02/22 08:27 Dose: 400 mg Documented by: [id number] Fluticasone/Vilanterol (Fluticasone/Vilanterol 200/25mcg 14 Puffs/Inhaler) 1 puffs INH QAM [facility] Stop: 04/01/22 08:59 Last Admin: 03/06/22 08:44 Dose: Not Given Documented by: [id number] Admin: 03/05/22 09:28 Dose: 1 puffs Documented by: [id number] Admin: 03/04/22 09:00 Dose: Not Given Documented by: [id number] Admin: 03/03/22 08:04 Dose: 1 puffs Documented by: [id number] Admin: 03/02/22 08:27 Dose: 1 puffs Documented by: [id number] Furosemide (Furosemide 20 Mg Tab) 20 mg PO QAM [facility] Stop: 04/01/22 08:59 Last Admin: 03/06/22 08:44 Dose: Not Given Documented by: [id number] Admin: 03/05/22 09:05 Dose: 20 mg Documented by: [id number] Admin: 03/04/22 09:00 Dose: Not Given Documented by: [id number] Admin: 03/03/22 08:03 Dose: 20 mg Documented by: [id number] Admin: 03/02/22 08:27 Dose: 20 mg Documented by: [id number] Heparin Sodium (Porcine) (Heparin 100 Unit/Ml 5ml Flush) 5 ml FLUSH PRN PRN PRN Reason: Flush Stop: 04/01/22 05:32 Last Admin: 03/02/22 17:02 Dose: 5 ml Documented by: [id number] Piperacillin Sod/Tazobactam (Sod 3.375 gm/ Dextrose) 115 mls @ 28.75 mls/hr IV Q8H [facility]; Protocol Stop: 03/09/22 01:59 Last Infusion: 03/06/22 17:34 Dose: 0 mls/hr Documented by: [id number] Admin: 03/06/22 13:56 Dose: 28.8 mls/hr Documented by: [id number] Infusion: 03/06/22 08:47 Dose: 0 mls/hr Documented by: [id number] Admin: 03/06/22 05:15 Dose: 28.7 mls/hr Documented by: [id number] Infusion: 03/06/22 04:21 Dose: 0 mls/hr Documented by: [id number] Admin: 03/06/22 00:00 Dose: 28.7 mls/hr Documented by: [id number] Infusion: 03/05/22 17:45 Dose: 0 mls/hr Documented by: [id number] Admin: 03/05/22 13:45 Dose: 28.8 mls/hr Documented by: [id number] Infusion: 03/05/22 09:58 Dose: 0 mls/hr Documented by: [id number] Admin: 03/05/22 05:58 Dose: 28.8 mls/hr Documented by: [id number] Infusion: 03/05/22 03:50 Dose: 0 mls/hr Documented by: [id number] Admin: 03/04/22 23:21 Dose: 28.8 mls/hr Documented by: [id number] Infusion: 03/04/22 17:41 Dose: 0 mls/hr Documented by: [id number] Admin: 03/04/22 13:37 Dose: 28.8 mls/hr Documented by: [id number] Infusion: 03/04/22 06:04 Dose: 0 mls/hr Documented by: [id number] Admin: 03/04/22 02:04 Dose: 28.8 mls/hr Documented by: [id number] Infusion: 03/03/22 21:15 Dose: 0 mls/hr Documented by: [id number] Admin: 03/03/22 17:13 Dose: 28.8 mls/hr Documented by: [id number] Infusion: 03/03/22 14:44 Dose: 0 mls/hr Documented by: [id number] Admin: 03/03/22 10:21 Dose: 28.8 mls/hr Documented by: [id number] Infusion: 03/03/22 05:47 Dose: 0 mls/hr Documented by: [id number] Admin: 03/03/22 01:46 Dose: 28.8 mls/hr Documented by: [id number] Infusion: 03/02/22 22:28 Dose: 0 mls/hr Documented by: [id number] Admin: 03/02/22 18:27 Dose: 28.8 mls/hr Documented by: [id number] Infusion: 03/02/22 13:55 Dose: 0 mls/hr Documented by: [id number] Admin: 03/02/22 09:55 Dose: 28.8 mls/hr Documented by: [id number] Infusion: 03/02/22 06:05 Dose: 0 mls/hr Documented by: [id number] Admin: 03/02/22 01:51 Dose: 28.8 mls/hr Documented by: [id number] Trimethoprim/Sulfamethoxazole (320 mg/ Dextrose) 520 mls @ 520 mls/hr IV Q8H [facility] Stop: 03/12/22 13:59 Last Infusion: 03/06/22 06:43 Dose: 0 mls/hr Documented by: [id number] Admin: 03/06/22 05:16 Dose: 520 mls/hr Documented by: [id number] Infusion: 03/06/22 01:15 Dose: 0 mls/hr Documented by: [id number] Admin: 03/05/22 23:59 Dose: 520 mls/hr Documented by: [id number] Infusion: 03/05/22 14:46 Dose: 0 mls/hr Documented by: [id number] Admin: 03/05/22 13:46 Dose: 520 mls/hr Documented by: [id number] Dexmedetomidine/Sodium Chloride (Precedex) 200 mcg in 50 mls @ 8.84 mls/hr IV .Q5H40M [facility]; Protocol Stop: 03/10/22 09:29 Last Admin: 03/06/22 16:35 Dose: 0.6 mcg/kg/hr, 13.3 mls/hr Documented by: [id number] Cosigned by: [id number] Titration: 03/06/22 16:29 Dose: 0.6 mcg/kg/hr, 13.3 mls/hr Documented by: [id number] Cosigned by: [id number] Titration: 03/06/22 15:44 Dose: 0.6 mcg/kg/hr, 13.3 mls/hr Documented by: [id number] Titration: 03/06/22 14:00 Dose: 0.5 mcg/kg/hr, 11.1 mls/hr Documented by: [id number] Admin: 03/06/22 12:39 Dose: 0.7 mcg/kg/hr, 15.5 mls/hr Documented by: [id number] Cosigned by: [id number] Titration: 03/06/22 12:39 Dose: 0.7 mcg/kg/hr, 15.5 mls/hr Documented by: [id number] Cosigned by: [id number] Titration: 03/06/22 12:09 Dose: 0.7 mcg/kg/hr, 15.5 mls/hr Documented by: [id number] Titration: 03/06/22 11:35 Dose: 0.6 mcg/kg/hr, 13.3 mls/hr Documented by: [id number] Titration: 03/06/22 11:12 Dose: 0.5 mcg/kg/hr, 11.1 mls/hr Documented by: [id number] Admin: 03/06/22 10:57 Dose: 0.4 mcg/kg/hr, 8.8 mls/hr Documented by: [id number] Cosigned by: [id number] Melatonin (Melatonin 3 Mg Tab) 3 mg PO HS [facility] Stop: 04/03/22 20:59 Last Admin: 03/06/22 02:01 Dose: Not Given Documented by: [id number] Admin: 03/04/22 20:31 Dose: 3 mg Documented by: [id number] Miscellaneous (Dutasteride 0.5 Mg - Order Awaiting Action) 1 ea N/A QS CYN Stop: 04/01/22 07:59 Last Admin: 03/06/22 08:43 Dose: Not Given Documented by: [id number] Admin: 03/06/22 01:51 Dose: Not Given Documented by: [id number] Admin: 03/05/22 16:04 Dose: Not Given Documented by: [id number] Admin: 03/05/22 07:51 Dose: Not Given Documented by: [id number] Admin: 03/04/22 23:32 Dose: Not Given Documented by: [id number] Admin: 03/04/22 15:05 Dose: Not Given Documented by: [id number] Admin: 03/04/22 13:43 Dose: Not Given Documented by: [id number] Admin: 03/03/22 23:25 Dose: Not Given Documented by: [id number] Admin: 03/03/22 15:56 Dose: Not Given Documented by: [id number] Admin: 03/03/22 09:19 Dose: Not Given Documented by: [id number] Admin: 03/02/22 23:04 Dose: Not Given Documented by: [id number] Admin: 03/02/22 16:40 Dose: Not Given Documented by: [id number] Admin: 03/02/22 08:29 Dose: Not Given Documented by: [id number] Pantoprazole Sodium (Pantoprazole 40 Mg Tab) 40 mg PO BID CYN Stop: 04/01/22 13:14 Last Admin: 03/06/22 08:44 Dose: Not Given Documented by: [id number] Admin: 03/06/22 02:01 Dose: Not Given Documented by: [id number] Admin: 03/05/22 09:04 Dose: 40 mg Documented by: [id number] Admin: 03/04/22 20:32 Dose: 40 mg Documented by: [id number] Admin: 03/04/22 09:00 Dose: Not Given Documented by: [id number] Admin: 03/03/22 20:19 Dose: 40 mg Documented by: [id number] Admin: 03/03/22 08:04 Dose: 40 mg Documented by: [id number] Admin: 03/02/22 20:38 Dose: 40 mg Documented by: [id number] Admin: 03/02/22 14:19 Dose: 40 mg Documented by: [id number] Potassium Citrate (Potassium Citrate 10 Meq Tab) 10 meq PO BID CYN Stop: 04/01/22 00:26 Last Admin: 03/06/22 08:44 Dose: Not Given Documented by: [id number] Admin: 03/05/22 20:22 Dose: 10 meq Documented by: [id number] Admin: 03/05/22 09:04 Dose: 10 meq Documented by: [id number] Admin: 03/04/22 20:32 Dose: 10 meq Documented by: [id number] Admin: 03/04/22 13:51 Dose: Not Given Documented by: [id number] Admin: 03/03/22 20:19 Dose: 10 meq Documented by: [id number] Admin: 03/03/22 08:04 Dose: 10 meq Documented by: [id number] Admin: 03/02/22 20:39 Dose: 10 meq Documented by: [id number] Admin: 03/02/22 08:26 Dose: 10 meq Documented by: [id number] Admin: 03/02/22 01:40 Dose: 10 meq Documented by: [id number] Senna/Docusate Sodium (Docusate Sodium/Senna 50/8.6mg Tab) 1 tab PO QAM [facility] Stop: 04/02/22 12:59 Last Admin: 03/06/22 08:44 Dose: Not Given Documented by: [id number] Admin: 03/05/22 09:05 Dose: 1 tab Documented by: [id number] Admin: 03/04/22 09:00 Dose: Not Given Documented by: [id number] Admin: 03/03/22 16:10 Dose: 1 tab Documented by: [id number] Discontinued Medications Albuterol (Albut/Ipratrop 3mg/0.5mg Neb 3 Ml Vial) 3 ml NEB NOW STA; Protocol Stop: 03/01/22 17:27 Last Admin: 03/01/22 17:43 Dose: 3 ml Documented by: [id number] Cyanocobalamin (Cyanocobalamin 1000 Mcg/Ml Vial) 1,000 mcg IM QAM [facility] Stop: 03/06/22 09:01 Last Admin: 03/06/22 08:59 Dose: 1,000 mcg Documented by: [id number] Admin: 03/05/22 09:07 Dose: 1,000 mcg Documented by: [id number] Admin: 03/04/22 13:59 Dose: 1,000 mcg Documented by: [id number] Admin: 03/03/22 08:04 Dose: 1,000 mcg Documented by: [id number] Admin: 03/02/22 11:32 Dose: 1,000 mcg Documented by: [id number] Diltiazem HCl (Diltiazem Hcl 5 Mg/Ml 5 Ml Vial) 10 mg IV NOW [facility] Stop: 03/06/22 00:27 Last Admin: 03/06/22 00:50 Dose: 10 mg Documented by: [id number] Cosigned by: [id number] Enoxaparin Sodium (Enoxaparin 150 Mg/Ml Syr) 135 mg SQ DAILY [facility] Stop: 04/01/22 08:59 Last Admin: 03/02/22 08:28 Dose: 135 mg Documented by: [id number] Haloperidol Lactate (Haloperidol Lactate 5 Mg/Ml 1 Ml Vial) 5 mg IM NOW STA Stop: 03/05/22 22:13 Last Admin: 03/05/22 23:59 Dose: 5 mg Documented by: [id number] Haloperidol Lactate (Haloperidol Lactate 5 Mg/Ml 1 Ml Vial) Confirm Administered Dose 5 mg .ROUTE .STK-MED ONE Stop: 03/05/22 22:16 Last Admin: 03/05/22 23:32 Dose: Not Given Documented by: [id number] Hydralazine HCl (Hydralazine Hcl 20 Mg/Ml Vial) 5 mg IV NOW ONE Stop: 03/04/22 18:33 Last Admin: 03/04/22 18:38 Dose: 5 mg Documented by: [id number] Sodium Chloride (Nss 1000ml) 1,000 mls @ 125 mls/hr IV .Q8H [facility] Stop: 03/01/22 23:14 Last Infusion: 03/02/22 00:38 Dose: 0 mls/hr Documented by: [id number] Admin: 03/01/22 15:36 Dose: 125 mls/hr Documented by: [id number] Piperacillin Sod/Tazobactam (Sod 4.5 gm/ Dextrose) 120 mls @ 200 mls/hr IV NOW ONE; Protocol Stop: 03/01/22 17:15 Last Admin: 03/01/22 17:05 Dose: Not Given Documented by: [id number] Magnesium Sulfate/Dextrose (Magnesium Sulfate / D5w) 1 gm in 100 mls @ 50 mls/hr IV ONE ONE Stop: 03/01/22 21:38 Last Infusion: 03/01/22 21:48 Dose: 0 mls/hr Documented by: [id number] Admin: 03/01/22 19:52 Dose: 50 mls/hr Documented by: [id number] Vancomycin HCl 1,000 mg/ (Sodium Chloride) 270 mls @ 200 mls/hr IV Q12H CYN; Protocol Stop: 03/09/22 09:59 Last Infusion: 03/02/22 11:16 Dose: 0 mls/hr Documented by: [id number] Admin: 03/02/22 09:55 Dose: 200 mls/hr Documented by: [id number] Vancomycin HCl 1,750 mg/ (Sodium Chloride) 535 mls @ 200 mls/hr IV 0130 ONE Stop: 03/02/22 04:10 Last Infusion: 03/02/22 04:36 Dose: 0 mls/hr Documented by: [id number] Admin: 03/02/22 01:45 Dose: 200 mls/hr Documented by: [id number] Diltiazem HCl 125 mg/ Dextrose 125 mls @ 10 mls/hr IV .[id number] CYN; Protocol Stop: 04/05/22 00:29 Last Titration: 03/06/22 10:00 Dose: 0 mg/hr, 0 mls/hr Documented by: [id number] Cosigned by: [id number] Titration: 03/06/22 02:46 Dose: 10 mg/hr, 10 mls/hr Documented by: [id number] Cosigned by: [id number] Admin: 03/06/22 00:53 Dose: 5 mg/hr, 5 mls/hr Documented by: [id number] Cosigned by: [id number] Potassium Chloride (K Kamari / Wtr) 20 meq in 100 mls @ 50 mls/hr IV Q2H CYN Stop: 03/06/22 13:44 Last Infusion: 03/06/22 13:50 Dose: 0 mls/hr Documented by: [id number] Admin: 03/06/22 11:45 Dose: 50 mls/hr Documented by: [id number] Infusion: 03/06/22 11:45 Dose: 50 mls/hr Documented by: [id number] Admin: 03/06/22 10:00 Dose: 50 mls/hr Documented by: [id number] Sodium Bicarbonate 100 meq/ (Dextrose) 600 mls @ 125 mls/hr IV NOW ONE Stop: 03/06/22 14:32 Last Infusion: 03/06/22 14:38 Dose: 0 mls/hr Documented by: [id number] Admin: 03/06/22 10:04 Dose: 125 mls/hr Documented by: [id number] Ioversol (Optiray 320 125ml) 120 ml IV ONCE ONE Stop: 03/01/22 16:54 Last Admin: 03/01/22 16:58 Dose: 120 ml Documented by: [id number] Lorazepam (Lorazepam 2 Mg/1 Ml Vial) Confirm Administered Dose 2 mg .ROUTE .STK- MED ONE Stop: 03/05/22 23:25 Last Admin: 03/05/22 23:33 Dose: Not Given Documented by: [id number] Lorazepam (Lorazepam 2 Mg/1 Ml Vial) 1 mg IV NOW STA; Protocol Stop: 03/05/22 23:24 Last Admin: 03/05/22 23:59 Dose: 1 mg Documented by: [id number] Lorazepam (Lorazepam 2 Mg/1 Ml Vial) 0.5 mg IV NOW STA; Protocol Stop: 03/06/22 04:03 Last Admin: 03/06/22 04:26 Dose: 0.5 mg Documented by: [id number] Methylprednisolone (Methylprednisolone 40 Mg/Ml Vial) 40 mg IV NOW STA Stop: 03/01/22 17:27 Last Admin: 03/01/22 17:44 Dose: 40 mg Documented by: [id number] Piperacillin Sod/Tazobactam Sod (Piperacillin/Tazobactam 4.5 Gm/120ml D5w) Confirm Administered Dose 4.5 gm IV .STK-MED ONE Stop: 03/01/22 16:44 Last Admin: 03/01/22 17:05 Dose: 4.5 gm Documented by: [id number] Potassium Chloride (Potassium Chloride Crtab 20 Meq Tabcr) 40 meq PO NOW STA Stop: 03/01/22 19:40 Last Admin: 03/01/22 19:52 Dose: 40 meq Documented by: [id number] Potassium Chloride (Potassium Chloride Crtab 20 Meq Tabcr) 40 meq PO NOW STA Stop: 03/06/22 07:50 Last Admin: 03/06/22 08:43 Dose: Not Given Documented by: [id number] Prednisone (Prednisone 20 Mg Tab) 40 mg PO BID CYN Stop: 03/06/22 21:01 Last Admin: 03/04/22 14:09 Dose: Not Given Documented by: [id number] Admin: 03/03/22 20:18 Dose: 40 mg Documented by: [id number] Admin: 03/03/22 08:04 Dose: 40 mg Documented by: [id number] Admin: 03/02/22 20:38 Dose: 40 mg Documented by: [id number] Admin: 03/02/22 14:19 Dose: 40 mg Documented by: [id number] Trimethoprim/Sulfamethoxazole (Sulfamethoxazole/Trimethoprim Ds 800/160mg Tab) 3 tab PO Q8H CYN; Protocol Stop: 03/23/22 14:59 Last Admin: 03/05/22 08:33 Dose: 3 tab Documented by: [id number] Admin: 03/04/22 23:28 Dose: 2 tab Documented by: [id number] Admin: 03/04/22 15:22 Dose: Not Given Documented by: [id number] Admin: 03/04/22 06:07 Dose: Not Given Documented by: [id number] Admin: 03/03/22 22:16 Dose: 3 tab Documented by: [id number] Admin: 03/03/22 16:10 Dose: 3 tab Documented by: [id number] Admin: 03/03/22 06:13 Dose: 3 tab Documented by: [id number] Admin: 03/02/22 23:04 Dose: 3 tab Documented by: [id number] Admin: 03/02/22 16:58 Dose: 3 tab Documented by: [id number] Zolpidem Tartrate (Zolpidem Tartrate 5 Mg Tab) 5 mg PO HS YCN Stop: 04/04/22 20:59 Last Admin: 03/05/22 20:25 Dose: 5 mg Documented by: [id number] Imaging Data Radiologist's Impression: Chest X-Ray 03/01/22 15:03 SINGLE VIEW CHEST CLINICAL HISTORY: Generalized weakness. FINDINGS: An AP, portable, upright chest radiograph is compared to study dated 01/17/2022 and correlated with chest CT dated 12/11/2021. The examination is degraded by portable technique, apical lordotic positioning, and patient rotation. A left internal jugular central venous infusion port is unchanged in position. The heart is enlarged. The pulmonary vasculature is noncongested. There is airspace consolidation throughout the left mid to lower lung. Mild patchy consolidation is suggested in the right lung. No large pleural effusion or pneumothorax is seen. The bony thorax is grossly intact. IMPRESSION: There is airspace consolidation throughout the left mid to lower lung with milder patchy opacities seen in the right lung. Correlate clinically for evidence of pneumonia. Radiographic follow-up to resolution is recommended. ACT 112: Negative or not required by law. Electronically signed by: London Sagastume M.D. 03/01/2022 3:51 PM Chest CTA 03/01/22 16:41 CT ANGIOGRAM OF THE CHEST CLINICAL HISTORY: Pneumonia. Hypoxia. History of multiple myeloma. COMPARISON STUDY: Chest x-ray dated 03/01/2022. Chest CT dated 12/11/2021. TECHNIQUE: Following the IV administration of 120. cc of Optiray 320, CT angiogram of the chest was performed from the upper abdomen to the thoracic inlet utilizing the pulmonary embolus protocol. Images are reviewed in the axial, sagittal, and coronal planes. 3-D MIPS images are created and assessed. IV contrast was administered without complication. A dose lowering technique was utilized adhering to the principles of ALARA. The examination is signifi cantly compromised by motion artifact. CT DOSE: 621.72 mGy.cm FINDINGS: Thyroid: Normal in size and heterogeneous in attenuation. Thoracic aorta: There is atherosclerotic calcification of the thoracic aorta, with is normal in caliber and demonstrates standard 3-vessel arch anatomy. No dissection is seen. Pulmonary vasculature: The pulmonary trunk is normal in caliber. There are no filling defects identified in main or lobar pulmonary branches to suggest pulmonary embolus. The segmental branches in the upper lobes appear clear. The segmental and subsegmental branches cannot be evaluated in the lower lobes due to motion artifact. Heart: A left internal jugular central venous infusion port is unchanged in position. The heart is normal in size and without pericardial effusion. The coronary arteries and mitral annulus are densely calcified. Lungs and pleural spaces: Evaluation of the lung parenchyma is severely degraded by motion artifact. The trachea and central airways are clear. Confluent groundglass consolidation is seen throughout both lungs, left greater than right. Dense airspace consolidation in the right upper lobe has modestly improved as compared to 12/11/2021. No pleural effusion is identified. Mediastinum: There is no mediastinal lymphadenopathy. Nicolette: Clear. Axillae: There is no axillary lymphadenopathy. Upper abdomen: There is a small hiatal hernia. Partially visualized upper abdomi nal viscera is otherwise grossly unremarkable. Skeletal structures: The skeletal structures are heterogeneously osteopenic. There are numerous chronic compression deformities seen throughout the thoracic spine which are similar to previous. Osteolytic bone lesions are again noted. The largest is present in the posterior aspect of T11 with posterior cortical breakthrough. Arthritic change is noted in the shoulders. There are healed bilateral rib fractures. IMPRESSION: 1. Severely motion degraded examination. 2. There is no evidence of central pulmonary embolus in the main or lobar pulmonary arteries. The segmental and subsegmental branches cannot be evaluated in the lower lobes. 3. Multifocal focal groundglass consolidation is again seen throughout both lungs. Overall this appears worsened as compared to 12/11/2021. 4. More confluent consolidative change in the right upper lobe has modestly improved from previous. 5. No pleural effusion. 6. 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 ACT 112: Negative or not required by law. Electronically signed by: London Sagastume M.D. 03/01/2022 5:20 PM Blood Pressure Blood Pressure Findings: Elevated blood pressure Blood Pressure Disposition: further management by hospitalist Discharge Plan Visit Data Chief Complaint: Illness Stated Complaint: ILLNESS ED Provider: Mary Justin Discharge Problem: Cryptococcal pneumonitis, Hypoxia, Pulmonary infiltrate present on computed tomography, H/O bone marrow transplant Patient Disposition: Admitted As Inpatient Discharge Instructions Interventions: ED Discharge Assessment Last Done: 03/02/22 00:01
[2022-03-01] MEDS ORDERED: SODIUM CHLORIDE 0.9% 1000ML 1,000 ML IV SCH (15:15)
[2022-03-01 15:48] LABS: Basophils # (auto) 0.01 K/uL (0-0.2); Basophils % (auto) 0.1 %; Eosinophils # (auto) 0.02 K/uL (0-0.5); Eosinophils % (auto) 0.2 %; Hematocrit (blood only) 37.2 % (42-52); Hemoglobin 12.5 g/dL (14.0-18.0); Immature Granulocytes # (auto) 0.08 K/uL (0.00-0.02); Immature Granulocytes % (auto) 0.7 %; Lymphocytes % (auto) 3.4 %; Mean Corpuscular Hgb Conc 33.6 g/dL (32-36); Mean Corpuscular Volume 98.2 fL (80-100); Mean Platelet Volume 10.3 fL (7.4-10.4); Monocytes # (auto) 0.43 K/uL (0.11-0.59); Monocytes % (auto) 3.7 %; Neutrophils # (auto) 10.76 K/uL (1.4-6.5); Neutrophils % (auto) 91.9 %; Platelet Count 119 K/uL (130-400); RDW Coefficient of Variation 17.6 % (11.5-14.5); Red Blood Count 3.79 M/uL (4.7-6.1)
--- NOTE | 2022-03-01 15:52 | XRay Report ---
SINGLE VIEW CHEST CLINICAL HISTORY: Generalized weakness. FINDINGS: An AP, portable, upright chest radiograph is compared to study dated 01/17/2022 and correlat ed with chest CT dated 12/11/2021. The examination is degraded by portable technique, apical lordotic positioning, and patient rotation. A left internal jugular central venous infusion port is unchange d in position. The heart is enlarged. The pulmonary vasculature is noncongested. There is airspace co nsolidation throughout the left mid to lower lung. Mild patchy consolidation is suggested in the righ t lung. No large pleural effusion or pneumothorax is seen. The bony thorax is grossly intact. IMPRESSION: There is airspace consolidation throughout the left mid to lower lung with milder patchy opacities seen in the right lung. Correlate clinically for evidence of pneumonia. Radiographic follow -up to resolution is recommended. ACT 112: Negative or not required by law. Electronically signed by: London Sagastume M.D. 03/01/2022 3:51 PM
[2022-03-01 16:23] LABS: Influenza A virus by PCR Negative (Neg); Influenza B virus by PCR Negative (Neg); RSV by PCR Negative (Neg); SARS CoV2 RNA(COVID-19) InHosp NEGATIVE (Negative)
[2022-03-01 16:27] LABS: Alanine Aminotransferase 31 U/L (7-52); Albumin Globulin Ratio 1.4 (0.9-2); Albumin Level 3.3 gm/dl (3.4-5.0); Alkaline Phosphatase 62 U/L (34-104); Anion Gap 12 (3-11); Aspartate Aminotransferase 13 U/L (13-39); BUN Creatinine Ratio 17.3 (10-20); Bilirubin,Total 0.4 mg/dl (0.2-1.0); Blood Urea Nitrogen 18 mg/dl (6-23); Calcium 8.8 mg/dl (8.5-10.1); Carbon Dioxide 20 mmol/L (21-32); Chloride 104 mmol/L (98-107); Est GFR (African American) 80.5 ml/min; Est GFR (Non-African American) 69.4 ml/min; Globulin 2.3 gm/dl (2.5-4.0); Glucose 105 mg/dl (70-99(Fasting)); Magnesium 1.8 mg/dl (1.7-2.4); Potassium 3.4 mmol/L (3.5-5.1); Sodium 136 mmol/L (136-145); Total Protein 5.6 gm/dl (6.0-8.3)
[2022-03-01 16:30] LABS: Troponin I High Sensitivity 11.2 pg/ml (0-20)
[2022-03-01] MEDS ORDERED: PIPERACILL/TAZOBAC CONSULT ACTIVE PRN (16:40)
[2022-03-01] MEDS ORDERED: PIPERACILLIN/TAZOBACTAM 4.5 GM in DEXTROSE 5% 100 ML IV ONE (16:40)
[2022-03-01] MEDS ORDERED: PIPERACILLIN/TAZOBACTAM 4.5 GM/120ML D5W IV ONE (16:43)
[2022-03-01] MEDS ORDERED: OPTIRAY 320 125ml IV ONE (16:53)
--- NOTE | 2022-03-01 17:22 | CT Scan Report ---
CT ANGIOGRAM OF THE CHEST CLINICAL HISTORY: Pneumonia. Hypoxia. History of multiple myeloma. COMPARISON STUDY: Chest x-ray dated 03/01/2022. Chest CT dated 12/11/2021. TECHNIQUE: Following the IV administration of 120. cc of Optiray 320, CT angiogram of the chest was p erformed from the upper abdomen to the thoracic inlet utilizing the pulmonary embolus protocol. Image s are reviewed in the axial, sagittal, and coronal planes. 3-D MIPS images are created and assessed. IV contrast was administered without complication. A dose lowering technique was utilized adhering t o the principles of ALARA. The examination is significantly compromised by motion artifact. CT DOSE: 621.72 mGy.cm FINDINGS: Thyroid: Normal in size and heterogeneous in attenuation. Thoracic aorta: There is atherosclerotic calcification of the thoracic aorta, with is normal in calib er and demonstrates standard 3-vessel arch anatomy. No dissection is seen. Pulmonary vasculature: The pulmonary trunk is normal in caliber. There are no filling defects identif ied in main or lobar pulmonary branches to suggest pulmonary embolus. The segmental branches in the u pper lobes appear clear. The segmental and subsegmental branches cannot be evaluated in the lower lob es due to motion artifact. Heart: A left internal jugular central venous infusion port is unchanged in position. The heart is no rmal in size and without pericardial effusion. The coronary arteries and mitral annulus are densely c alcified. Lungs and pleural spaces: Evaluation of the lung parenchyma is severely degraded by motion artifact. The trachea and central airways are clear. Confluent groundglass consolidation is seen throughout bot h lungs, left greater than right. Dense airspace consolidation in the right upper lobe has modestly i mproved as compared to 12/11/2021. No pleural effusion is identified. Mediastinum: There is no mediastinal lymphadenopathy. Nicolette: Clear. Axillae: There is no axillary lymphadenopathy. Upper abdomen: There is a small hiatal hernia. Partially visualized upper abdominal viscera is otherw ise grossly unremarkable. Skeletal structures: The skeletal structures are heterogeneously osteopenic. There are numerous chron ic compression deformities seen throughout the thoracic spine which are similar to previous. Osteolyt ic bone lesions are again noted. The largest is present in the posterior aspect of T11 with posterior cortical breakthrough. Arthritic change is noted in the shoulders. There are healed bilateral rib fr actures. IMPRESSION: 1. Severely motion degraded examination. 2. There is no evidence of central pulmonary embolus in the main or lobar pulmonary arteries. The seg mental and subsegmental branches cannot be evaluated in the lower lobes. 3. Multifocal focal groundglass consolidation is again seen throughout both lungs. Overall this appea rs worsened as compared to 12/11/2021. 4. More confluent consolidative change in the right upper lobe has modestly improved from previous. 5. No pleural effusion. 6. Osteolytic bone disease and thoracic compression deformities are again noted and similar to previo us. ACT 112: Negative or not required by law. Electronically signed by: London Sagastume M.D. 03/01/2022 5:20 PM
[2022-03-01] MEDS ORDERED: ALBUT/IPRATROP 3MG/0.5MG NEB 3 ML VIAL NEB STA (17:26)
--- NOTE | 2022-03-01 18:37 | History & Physical Report ---
Date of Service March 01, 2022 Assessment & Plan (1) Shortness of breath: Plan: Presents with worsening shortness of breath, acute respiratory failure with hypoxia, with worsening groundglass opacities on CT angiogram chest. Negative for PE. Currently being treated for cryptococcal pneumonia with over 1 month of fluconazole proBNP negative, making heart failure not likely Hypoxic into the 80s prior to admission, requiring supplemental O2 Suspect all secondary to pneumonia-he is immunocompromised due to history of myeloma on chemotherapy -Admit to medical/surgical floor -Treating with IV Zosyn and vancomycin for pneumonia -Check sputum culture, follow blood cultures -Consult pulmonology for further recommendations -Request records from [facility] pulmonology -Continue home fluconazole for cryptococcus pneumonia -Continue supplemental O2 to keep pulse ox greater than 90% -Continue home inhaler and rescue inhaler -Will likely need a two-step walk test prior to discharge -No role for steroids at this time (2) Acute respiratory failure with hypoxia: Plan: Secondary to pneumonia Continue supplemental O2 to keep pulse ox greater than 90% (3) Cryptococcal pneumonitis: Plan: Continue fluconazole 400 mg p.o. once daily Holding chemotherapy for the last 2 months (4) Diarrhea: Plan: Has had 8 nonbloody loose stools in the last 24 hours No antibiotics last month except for fluconazole -Check stool panel PCR Treat accordingly, avoid Imodium until proven not to have bacterial infection No abdominal pains-no need for further imaging at this time (5) History of pulmonary embolism: Plan: Continue Lovenox 1.5 mg/KG SQ once daily Follows with anticoagulation clinic Previously on Coumadin but has been held while he is on fluconazole (6) (HFpEF) heart failure with preserved ejection fraction: Plan: No acute issues, does not appear hypervolemic Continue home Lasix 20 Mg p.o. once daily Continue blood pressure control (7) Light chain myeloma: Plan: Follows with oncology at [facility] Holding all home chemotherapy due to recent infection Still takes dexamethasone once a week on Continue suppressive acyclovir 400 mg p.o. twice daily (8) Hypokalemia: Plan: Secondary to poor p.o. intake and GI losses Continue supplementation with potassium chloride 40 mEq p.o. [id number] BMP magnesium in the morning Replaced magnesium (9) Thrombocytopenia: Plan: Mild at 119 Likely secondary to acute illness Follow CBC (10) Anemia: Plan: Mild and at baseline Follow CBC (11) BPH loc w urin obs/LUTS: Plan: No acute issues Bladder scan as needed Continue home dutasteride (12) GERD (gastroesophageal reflux disease): Plan: Continue home PPI (13) Osteoporosis 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: (14) Depression: Plan: Continue home Celexa (15) Calculus of kidney: Plan: With a history of uric acid stones, follows with urology Continue home Urocit-K and allopurinol Plan: DVT prophylaxis-Lovenox, SCDs Disposition-admit to medical/surgical unit DNR/DNI History of Present Illness Chief Complaint: Shortness of breath, diarrhea, weakness Primary Care Provider: Corazon Vargas MD This patient is a 76-year-old male with history of multiple myeloma now 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 He has been on fluco nazole now for over a month for cryptococcal pneumonia and initially after starting treatment did notice some improvement. But over the last 2 weeks or so, he has been progressively short of breath and then within the last week developed sinus congestion. He has been blowing yellow mucus out of his nose as well as coughing up yellow sputum. There is no hemoptysis. No fevers or chills. No headaches or facial pain. No chest pains or leg swelling. His finally convinced him to come to the hospital today. When EMS arrived at his home, he was found to have a pulse ox in the 80s and he is not typically on home O2. He has had a decreased appetite the last couple of weeks and did have 1 episode of nausea and vomiting after lunch today. He reports he is also had 8 episodes of diarrhea in the last 24 hours that is nonbloody. No significant abdominal pains. In the ER, he was found to have a mild tachycardia but normal blood pressures, and was afebrile. Pulse ox is not recorded as being low but he was placed on 4 L nasal cannula in the ER to keep pulse ox in the low 90s. On lab work-up, he was found to have a mild leukocytosis of 11 with neutrophilia, mild chronic anemia, mild thrombocytopenia, mild hypokalemia. Troponin was negative. proBNP was negative. He had a mild anion gap metabolic acidosis but no lactate was drawn. COVID/influenza a and B/RSV were negative. His chest x-ray showed patchy diffuse pneumonia and a CT angiogram of the chest was negative for PE but showed some improvement in the previous right upper lobe consolidation but progression in the bilateral diffuse groundglass opacities. In the ER, he was given IV Solu-Medrol, IV Zosyn, and fluids. He will be admitted for pneumonia in the setting of immune compromise, and acute respiratory failure hypoxia. Allergies Allergy/AdvReac Type Severity Reaction Status Date / Time dexamethasone AdvReac Severe Hallucinati Verified 03/01/22 16:21 on meclizine AdvReac Intermediate HALLUCINATI Verified 03/01/22 16:21 ON hydrocodone AdvReac Mild AGITATION Verified 03/01/22 16:21 levofloxacin [From Levaquin] AdvReac Mild muscle Verified 03/01/22 16:21 weakness lisinopril AdvReac Mild Dizziness Verified 03/01/22 16:21 Home Medications Medication Instructions Recorded Confirmed Type acetaminophen 500 mg tablet 1,000 mg PO Q8 PRN 06/28/18 03/01/22 History (Acetaminophen Extra Strength) daratumumab 20 mg/mL intravenous 0 mg IV MONTHLY 06/28/18 03/01/22 History solution polyethylene glycol 3350 17 17 g PO DAILY PRN 06/28/18 03/01/22 History gram/dose oral powder (Miralax) pomalidomide 4 mg capsule 4 mg PO DIRECTED 06/29/18 03/01/22 History acyclovir 400 mg tablet 400 mg PO BID 08/02/18 03/01/22 History pegfilgrastim 6 mg/0.6 mL 6 mg SUBCUT DIRECTED 08/02/18 03/01/22 History (deliverable) wearable subcutaneous injector (Neulasta Onpro) citalopram 10 mg tablet 10 mg PO QAM 04/25/19 03/01/22 History zoledronic acid 4 mg/5 mL 0 mg IV .Q 3 MONTHS 04/25/19 03/01/22 History intravenous solution levalbuterol tartrate 45 1 puffs INH Q6H PRN #15 gm 12/05/19 03/01/22 Rx mcg/actuation aerosol inhaler montelukast 10 mg tablet 10 mg PO MONTHLY PRN tab 07/25/20 03/01/22 History (Singulair) furosemide 20 mg tablet (Lasix) 20 mg PO QAM 02/28/21 03/01/22 History fluticasone furoate 200 1 inh INHALATION QAM 10/15/21 03/01/22 History mcg-vilanterol 25 mcg/dose inhalation powder (Breo Ellipta) dexamethasone 4 mg tablet 8 mg PO WK 11/16/21 03/01/22 History enoxaparin 150 mg/mL subcutaneous See Rx Instructions SUBCUT DAILY 02/20/22 03/01/22 Rx syringe (Lovenox) #30 syr allopurinol 100 mg tablet 100 mg PO BID #180 tab 02/23/22 03/01/22 Rx potassium citrate 10 mEq (1,080 10 meq PO BID 90 Days #180 tab 02/23/22 03/01/22 Rx mg) tablet,extended release (Urocit-K 10) dutasteride 0.5 mg capsule 0.5 mg PO QAM #90 cap 02/26/22 03/01/22 Rx fluconazole 100 mg tablet 400 mg PO DAILY 03/01/22 03/01/22 History Past Med/Surg History Medical History (Updated 03/01/22 @ 23:02 by Johnna Shepard MD) (HFpEF) heart failure with preserved ejection fraction Anemia BASELINE 8-9 RANGE BPH loc w urin obs/LUTS Calculus of kidney Cancer MULTIPLE MYELOMA (DX'D 2015); stem cell transplant, chemo Cryptococcal pneumonitis Current use of exterminator termite anticoagulation Depression GERD (gastroesophageal reflux disease) Gout History of nephrolithiasis History of pneumothorax 2019 with lung biopsy History of pulmonary embolism [place] (hard of hearing) Irregular heartbeat 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 Port-A-Cath in place Left chest Pulmonary embolism 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); 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 SOB (shortness of breath) on exertion Thrombocytopenia Tremor Surgical History Bone marrow replaced by transplant History of cataract surgery RT History of chest tube placement History of lung biopsy benign Family History Father Cardiac disorder Heart disease Mother Cancer Stroke Other No family history of adverse response to anesthesia Social History Smoking Status: Unknown if ever smoked Second Hand Exposure: No; Hx Alcohol Use: No Hx Substance Use: No Preferred Language: Singaporean Communication Ability: Effective Visual Impairment: No Limitations Provider Relations Representative Required: Yes Beliefs That Will Affect Care: None marital status: Current Living Situation: Spouse current occupational status: retired How many Children do You have: 2 Feels Safe at Home: Yes Safety Concerns: Feels Safe At This Time during the past year weight has: remained stable Assistive Devices: Cane Review of Systems Review of Systems: All systems reviewed & are unremarkable except as noted in HPI & below Physical Exam Constitutional: WD/WN, vitals as above Eyes: PERRL, conjunctivae normal, anicteric sclerae ENMT: external ear and nose normal, oropharynx normal Neck: trachea midline, no thyromegaly Respiratory: normal respiratory effort; no cough Auscultation: + crackles (At bilateral lower middle lung willis); no rhonchi and no wheezes Cardiovascular: RRR, no murmur, no edema Chest (Breasts): Chest: normal inspection of chest Gastrointestinal (Abdomen): normal bowel sounds, soft, nontender, no hepatosplenomegaly Musculoskeletal: Extremities: extremities normal to inspection; no cyanosis and no clubbing Skin: no rashes, warm and dry Neurologic: moves all extremities and awake; no focal motor deficits Psychiatric: A+Ox3, euthymic affect Lymphatic: no lymphedema Results & Data Results & Data ([facility]) Vital Signs (Past 12 Hours) Vital Signs Temp Pulse Pulse Resp BP BP Pulse Ox 03/01/22 17:00 88 16 94 03/01/22 16:00 90 16 134/79 93 03/01/22 14:37 36.8 C 101 H 18 146/100 H 91 Laboratory Results 03/01/22 03/01/22 03/01/22 Range/Units 15:32 15:32 15:32 WBC (4.8-10.8) K/uL RBC (4.7-6.1) M/uL Hgb (14.0-18.0) g/dL Hct (42-52) % MCV (80-100) fL MCH (25-34) pg MCHC (32-36) g/dL RDW Std Deviation (36.4-46.3) fL RDW Coeff of Eyal (11.5-14.5) % Plt Count (130-400) K/uL MPV (7.4-10.4) fL Immature Gran % (Auto) % Neut % (Auto) % Lymph % (Auto) % [place] % (Auto) % Eos % (Auto) % Baso % (Auto) % Neut # (Auto) (1.4-6.5) K/uL Lymph # (Auto) (1.2-3.4) K/uL [place] # (Auto) (0.11-0.59) K/uL Eos # (Auto) (0-0.5) K/uL Baso # (Auto) (0-0.2) K/uL Immature Gran # (Auto) (0.00-0.02) K/uL Sodium 136 (136-145) mmol/L Potassium 3.4 L (3.5-5.1) mmol/L Chloride 104 (98-107) mmol/L Carbon Dioxide 20 L (21-32) mmol/L Anion Gap 12 H (3-11) BUN 18 (6-23) mg/dl Creatinine 1.04 (0.6-1.4) mg/dl Est Cr Clr Drug Dosing Not Reportable Est GFR ( Amer) 80.5 ml/min Est GFR (Non-Af Amer) 69.4 ml/min BUN/Creatinine Ratio 17.3 (10-20) Glucose 105 H (70-99(Fasting)) mg/dl Calcium 8.8 (8.5-10.1) mg/dl Magnesium 1.8 (1.7-2.4) mg/dl Total Bilirubin 0.4 (0.2-1.0) mg/dl AST 13 (13-39) U/L ALT 31 (7-52) U/L Alkaline Phosphatase 62 (34-104) U/L Troponin I High Sens 11.2 (0-20) pg/ml Total Protein 5.6 L (6.0-8.3) gm/dl Albumin 3.3 L (3.4-5.0) gm/dl Globulin 2.3 L (2.5-4.0) gm/dl Albumin/Globulin Ratio 1.4 (0.9-2) TSH 3.634 (0.300-4.500) uIu/ml Tacrolimus Pending SARS-CoV-2 (PCR) (Negative) Influenza Type A (PCR) (Neg) Influenza Type B (PCR) (Neg) RSV (RT-PCR) (Neg) 03/01/22 03/01/22 Range/Units 15:32 15:26 WBC 11.70 H (4.8-10.8) K/uL RBC 3.79 L (4.7-6.1) M/uL Hgb 12.5 L (14.0-18.0) g/dL Hct 37.2 L (42-52) % MCV 98.2 (80-100) fL MCH 33.0 (25-34) pg MCHC 33.6 (32-36) g/dL RDW Std Deviation 63.0 H (36.4-46.3) fL RDW Coeff of Eyal 17.6 H (11.5-14.5) % Plt Count 119 L (130-400) K/uL MPV 10.3 (7.4-10.4) fL Immature Gran % (Auto) 0.7 % Neut % (Auto) 91.9 % Lymph % (Auto) 3.4 % [place] % (Auto) 3.7 % Eos % (Auto) 0.2 % Baso % (Auto) 0.1 % Neut # (Auto) 10.76 H (1.4-6.5) K/uL Lymph # (Auto) 0.40 L (1.2-3.4) K/uL [place] # (Auto) 0.43 (0.11-0.59) K/uL Eos # (Auto) 0.02 (0-0.5) K/uL Baso # (Auto) 0.01 (0-0.2) K/uL Immature Gran # (Auto) 0.08 H (0.00-0.02) K/uL Sodium (136-145) mmol/L Potassium (3.5-5.1) mmol/L Chloride (98-107) mmol/L Carbon Dioxide (21-32) mmol/L Anion Gap (3-11) BUN (6-23) mg/dl Creatinine (0.6-1.4) mg/dl Est Cr Clr Drug Dosing Est GFR ( Amer) ml/min Est GFR (Non-Af Amer) ml/min BUN/Creatinine Ratio (10-20) Glucose (70-99(Fasting)) mg/dl Calcium (8.5-10.1) mg/dl Magnesium (1.7-2.4) mg/dl Total Bilirubin (0.2-1.0) mg/dl AST (13-39) U/L ALT (7-52) U/L Alkaline Phosphatase (34-104) U/L Troponin I High Sens (0-20) pg/ml Total Protein (6.0-8.3) gm/dl Albumin (3.4-5.0) gm/dl Globulin (2.5-4.0) gm/dl Albumin/Globulin Ratio (0.9-2) TSH (0.300-4.500) uIu/ml Tacrolimus SARS-CoV-2 (PCR) NEGATIVE (Negative) Influenza Type A (PCR) Negative (Neg) Influenza Type B (PCR) Negative (Neg) RSV (RT-PCR) Negative (Neg) Diagnostic Findings Chest X-Ray 03/01/22 15:03 SINGLE VIEW CHEST CLINICAL HISTORY: Generalized weakness. FINDINGS: An AP, portable, upright chest radiograph is compared to study dated 01/17/2022 and correlated with chest CT dated 12/11/2021. The examination is degraded by portable technique, apical lordotic positioning, and patient rotation. A left internal jugular central venous infusion port is unchanged in position. The heart is enlarged. The pulmonary vasculature is noncongested. There is airspace consolidation throughout the left mid to lower lung. Mild patchy consolidation is suggested in the right lung. No large pleural effusion or pneumothorax is seen. The bony thorax is grossly intact. IMPRESSION: There is airspace consolidation throughout the left mid to lower lung with milder patchy opacities seen in the right lung. Correlate clinically for evidence of pneumonia. Radiographic follow-up to resolution is recommended. ACT 112: Negative or not required by law. Electronically signed by: London Sagastume M.D. 03/01/2022 3:51 PM Chest CTA 03/01/22 16:41 CT ANGIOGRAM OF THE CHEST CLINICAL HISTORY: Pneumonia. Hypoxia. History of multiple myeloma. COMPARISON STUDY: Chest x-ray dated 03/01/2022. Chest CT dated 12/11/2021. TECHNIQUE: Following the IV administration of 120. cc of Optiray 320, CT angiogram of the chest was performed from the upper abdomen to the thoracic inlet utilizing the pulmonary embolus protocol. Images are reviewed in the axial, sagittal, and coronal planes. 3-D MIPS images are created and assessed. IV contrast was administered without complication. A dose lowering technique was utilized adhering to the principles of ALARA. The examination is significantly compromised by motion artifact. CT DOSE: 621.72 mGy.cm FINDINGS: Thyroid: Normal in size and heterogeneous in attenuation. Thoracic aorta: There is atherosclerotic calcification of the thoracic aorta, with is normal in caliber and demonstrates standard 3-vessel arch anatomy. No dissection is seen. Pulmonary vasculature: The pulmonary trunk is normal in caliber. There are no filling defects identified in main or lobar pulmonary branches to suggest pulmonary embolus. The segmental branches in the upper lobes appear clear. The segmental and subsegmental branches cannot be evaluated in the lower lobes due to motion artifact. Heart: A left internal jugular central venous infusion port is unchanged in position. The heart is normal in size and without pericardial effusion. The coronary arteries and mitral annulus are densely calcified. Lungs and pleural spaces: Evaluation of the lung parenchyma is severely degraded by motion artifact. The trachea and central airways are clear. Confluent groundglass consolidation is seen throughout both lungs, left greater than right. Dense airspace consolidation in the right upper lobe has modestly improved as compared to 12/11/2021. No pleural effusion is identified. Mediastinum: There is no mediastinal lymphadenopathy. Nicolette: Clear. Axillae: There is no axillary lymphadenopathy. Upper abdomen: There is a small hiatal hernia. Partially visualized upper abdominal viscera is otherwise grossly unremarkable. Skeletal structures: The skeletal structures are heterogeneously osteopenic. There are numerous chronic compression deformities seen throughout the thoracic spine which are similar to previous. Osteolytic bone lesions are again noted. The largest is present in the posterior aspect of T11 with posterior cortical breakthrough. Arthritic change is noted in the shoulders. There are healed bilateral rib fractures. IMPRESSION: 1. Severely motion degraded examination. 2. There is no evidence of central pulmonary embolus in the main or lobar pulmonary arteries. The segmental and subsegmental branches cannot be evaluated in the lower lobes. 3. Multifocal focal groundglass consolidation is again seen throughout both lungs. Overall this appears worsened as compared to 12/11/2021. 4. More confluent consolidative change in the right upper lobe has modestly improved from previous. 5. No pleural effusion. 6. 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 ACT 112: Negative or not required by law. Electronically signed by: London Sagastume M.D. 03/01/2022 5:20 PM ECG Additional Comments: ECG on 03/01/2022 at 1513 with sinus rhythm with sinus arrhythmia, rate 97, incomplete RBBB, mildly prolonged QTC at 482, unchanged from previous Code Status & VTE Plan VTE Prophylaxis Plan VTE Prophylaxis will be ordered: Yes PG Care Time/CCT Total # of Minutes Spent Total Time Spent with Patient: Total time spent is greater than 50% in coordination of care (as documented) at patient's floor/unit and/or counseling patient: Coding Level of Care Code 14023 Initial Inpt Care Lvl 3 Diagnoses History of pulmonary embolism Z86.711 (HFpEF) heart failure with preserved ejection fraction I50.30 Light chain myeloma C90.00 Depression F32.9 Osteoporosis 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 M81.8; C90.00 GERD (gastroesophageal reflux disease) K21.9 Thrombocytopenia D69.6 Anemia D64.9 BPH loc w urin obs/LUTS N40.1 Shortness of breath R06.02 Cryptococcal pneumonitis B45.0 Calculus of kidney N20.0 Hypokalemia E87.6 Diarrhea R19.7 Acute respiratory failure with hypoxia J96.01
[2022-03-01] MEDS ORDERED: POTASSIUM CHLORIDE CRTAB 20 MEQ TABCR PO STA (19:39)
[2022-03-01] MEDS ORDERED: MAGNESIUM SULFATE / D5W 1 GM/100 ML BAG IV ONE (19:39)
[2022-03-01] MEDS ORDERED: VANCOMYCIN CONSULT ACTIVE PRN (19:39)
[2022-03-02] MEDS ORDERED: PIPERACILL/TAZOBAC CONSULT ACTIVE PRN (00:27)
[2022-03-02] MEDS ORDERED: LEVALBUTEROL TARTRATE 15 GM HFA.AER.AD INH PRN (00:27)
[2022-03-02 01:07] LABS: Appearance Urine Clear (Clear); Bacteria Urine Automated Negative (Negative); Bilirubin Urine Negative (Negative); Blood Urine 2+ (Negative); Cast Urine Automated 0 /lpf (0-5); Color Urine Yellow; Epithelial Cell Urine Auto 0-5 /lpf (0-5); Glucose Urine UA Negative (Negative); Ketones Urine Negative (Negative); Leukocyte Esterase Urine Negative (Negative); Nitrite Urine Negative (Negative); Protein Urine Trace (Negative); Specific Gravity Urine > 1.045 (1.000-1.030); Urobilinogen Urine Negative (Negative)
[2022-03-02] MEDS ORDERED: VANCOMYCIN HCL 1,750 MG in SODIUM CHLORIDE 0.9% 500 ML IV ONE (01:30)
[2022-03-02] MEDS: allopurinoL 100 MG TAB PO SCH ×3 (01:40→20:38)
[2022-03-02] MEDS: POTASSIUM CITRATE 10 MEQ TAB PO SCH ×3 (01:40→20:39)
[2022-03-02] MEDS: ACYCLOVIR 400 MG TAB PO SCH ×3 (01:40→20:39)
[2022-03-02] MEDS: PIPERACILLIN/TAZOBACTAM 3.375 GM in DEXTROSE 5% 100 ML IV SCH ×3 (01:51→18:27)
[2022-03-02] MEDS ORDERED: Nursing to Pharmacy Communication SCH (02:15)
--- NOTE | 2022-03-02 04:07 | Pharmacy Report ---
Pharmacy Vanc AUC Short Note - Date of Service March 02, 2022 - Assessment & Plan Assessment 76 year old M receiving Vancomycin + Zosyn for treatment of pneumonia. Blood Cx x2 pending. Also continuing home med Fluconazole 400mg po qam, which he has been on for cryptococcal pna. Hx of myeloma on chemo, although chemo has been on hold recently due to ongoing infections. Plan Vancomycin * Patient received Vancomycin 1750mg (19 mg/kg) loading dose. Will start Vanc omycin 1000mg (~11mg/kg) IV q12h. * AUC/MICHAEL is the preferred PK/PD target for vancomycin * AUC guided dosing is effective and associated with decreased risk of nephrotoxicity compared to traditional trough targets * The above dose is predicted to achieve target AUC/MICHAEL of ~600 mg/L.hr and may be associated with a 15 % risk of nephrotoxicity * Targeted higher AUC due to ongoing pneumonia, recent hospitalization, and immunocompromised status. * Will check a trough level in a few days. Zosyn * Zosyn 4.5gm IV x 1 then 3.375gm IV q8h for CrCl > 20 ml/min. Pharmacy will continue to follow and will adjust dose/frequency as necessary. Thank you.
--- NOTE | 2022-03-02 06:33 | Electrocardiogram Report ---
Test Reason : Blood Pressure : / mmHG Vent. Rate : 097 BPM Atrial Rate : 097 BPM P-R Int : 136 ms QRS Dur : 092 ms QT Int : 380 ms P-R-T Axes : 024 -36 031 degrees QTc Int : 482 ms Sinus rhythm with marked sinus arrhythmia Left anterior fascicular block Incomplete right bundle branch block Moderate voltage criteria for LVH, may be normal variant Prolonged QT Abnormal ECG When compared with ECG of 17-JAN-2022 09:24, Premature atrial complexes are no longer Present Confirmed by Aron Penaloza ([id number]) on 03/02/2022 6:33:33 AM Referred By: REFERRED SELF Confirmed By:Aron Penaloza
[2022-03-02 06:35] LABS: Basophils # (auto) 0.01 K/uL (0-0.2); Basophils % (auto) 0.1 %; Hematocrit (blood only) 34.5 % (42-52); Hemoglobin 11.7 g/dL (14.0-18.0); Immature Granulocytes # (auto) 0.05 K/uL (0.00-0.02); Immature Granulocytes % (auto) 0.6 %; Lymphocytes # (auto) 0.56 K/uL (1.2-3.4); Lymphocytes % (auto) 6.7 %; Mean Corpuscular Hemoglobin 33.4 pg (25-34); Mean Corpuscular Hgb Conc 33.9 g/dL (32-36); Mean Corpuscular Volume 98.6 fL (80-100); Mean Platelet Volume 9.8 fL (7.4-10.4); Monocytes # (auto) 0.11 K/uL (0.11-0.59); Monocytes % (auto) 1.3 %; Neutrophils # (auto) 7.69 K/uL (1.4-6.5); Neutrophils % (auto) 91.3 %; Platelet Count 117 K/uL (130-400); RDW Coefficient of Variation 17.3 % (11.5-14.5); White Blood Count 8.42 K/uL (4.8-10.8)
[2022-03-02 06:51] LABS: Albumin Globulin Ratio 1.4 (0.9-2); Albumin Level 3.1 gm/dl (3.4-5.0); Bilirubin,Total 0.4 mg/dl (0.2-1.0); C Reactive Protein 11.11 mg/dl (0-0.5); Calcium 8.3 mg/dl (8.5-10.1); Creatinine Clr Calc Pharmacy 90.4 ml/min; Est GFR (African American) 101.1 ml/min; Est GFR (Non-African American) 87.2 ml/min; Globulin 2.2 gm/dl (2.5-4.0); Magnesium 2.2 mg/dl (1.7-2.4); Potassium 3.8 mmol/L (3.5-5.1); Total Protein 5.3 gm/dl (6.0-8.3)
--- NOTE | 2022-03-02 08:26 | Pulmonary Consultation ---
Date of Consultation March 02, 2022 Assessment & Plan (1) Acute respiratory failure with hypoxia: (2) Abnormal chest CT: (3) Multiple myeloma: CT chest 03/01/2022 personally reviewed: Diffuse groundglass opacities appreciated bilaterally especially in the left upper and left lower lobe Right upper lobe consolidative process in the apex (improved compared to 12/2021) No significant mediastinal lymphadenopathy -- Acute hypoxic respiratory failure with diffuse groundglass opacities bilaterally Patient had this finding dating back to December 2021 As per the chart he has been being treated with fluconazole for possible cryptococcus pneumonia since approximately a month Patient did have dense consolidative process in the right upper lobe which has improved compared to December. Cryptococcal pneumonia usually gives dense consolidative process. Groundglass opacities appreciated bilaterally unlikely to be from cryptococcus Differential for it includes infectious versus noninfectious Infectious includes PJP given the patient is immunocompromised, viral infection can also present this result already on acyclovir prophylactically Noninfectious etiology includes autoimmune pneumonitis, drug-induced pneumonitis as well as diffuse alveolar hemorrhage Given patient's hemoglobin has been stable since December and is not having any significant hemoptysis I doubt this is diffuse alveolar hemorrhage Plan: I will order LUIS with reflex, follow BNP LDH, Fungitell I will discuss with the patient regarding bronchoscopy and BAL to be done on Wednesday. Hold therapeutic Lovenox tomorrow. Given the patient is on therapeutic anticoagulation the risk of bleeding is high. I would rather start the patient on PJP treatment with Bactrim 3 double strand tablets 3 times daily which will come out to be TMP dose 16 mg/kg/day. DC vancomycin. 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 It may contain grammatical, syntax or spelling errors.Any formal questions or concerns about the content, text or information contained within the body of this dictation should be directly addressed to the provider for clarification. History of Present Illness Attending Physician: Bony Larkin History of Present Illness 76-year-old male admitted to the hospital for shortness of breath Past medical history: Multiple myeloma s/p autologous stem cell transplant 12/2016 failed maintenance Velcade and currently on daratumumab, paroxysmal A. fib, HFpEF, PE on Lovenox, BPH Pulmonary were consulted as there was no improvement in patient's infiltrates On the time of examination patient was saturating 96% on 5 L nasal cannula, I went down to 4 L. He stated that he is feeling better compared to when he came to the hospital He has never been on oxygen prior to this admission. Denies any chest pain, was coughing and bringing up clear phlegm. Denies any hemoptysis No headache, no blurry vision No recent travel history. No subjective fever or chills. No nausea or vomiting No dysuria, no diarrhea. No personal or family history of autoimmune disease. 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 Allergies Allergy/AdvReac Type Severity Reaction Status Date / Time dexamethasone AdvReac Severe Hallucinati Verified 03/01/22 16:21 on meclizine AdvReac Intermediate HALLUCINATI Verified 03/01/22 16:21 ON hydrocodone AdvReac Mild AGITATION Verified 03/01/22 16:21 levofloxacin [From Levaquin] AdvReac Mild muscle Verified 03/01/22 16:21 weakness lisinopril AdvReac Mild Dizziness Verified 03/01/22 16:21 Home Medications Medication Instructions Recorded Confirmed Type acetaminophen 500 mg tablet 1,000 mg PO Q8 PRN 06/28/18 03/01/22 History (Acetaminophen Extra Strength) daratumumab 20 mg/mL intravenous 0 mg IV MONTHLY 06/28/18 03/01/22 History solution polyethylene glycol 3350 17 17 g PO DAILY PRN 06/28/18 03/01/22 History gram/dose oral powder (Miralax) pomalidomide 4 mg capsule 4 mg PO DIRECTED 06/29/18 03/01/22 History acyclovir 400 mg tablet 400 mg PO BID 08/02/18 03/01/22 History pegfilgrastim 6 mg/0.6 mL 6 mg SUBCUT DIRECTED 08/02/18 03/01/22 History (deliverable) wearable subcutaneous injector (Neulasta Onpro) citalopram 10 mg tablet 10 mg PO QAM 04/25/19 03/01/22 History zoledronic acid 4 mg/5 mL 0 mg IV .Q 3 MONTHS 04/25/19 03/01/22 History intravenous solution levalbuterol tartrate 45 1 puffs INH Q6H PRN #15 gm 12/05/19 03/01/22 Rx mcg/actuation aerosol inhaler montelukast 10 mg tablet 10 mg PO MONTHLY PRN tab 07/25/20 03/01/22 History (Singulair) furosemide 20 mg tablet (Lasix) 20 mg PO QAM 02/28/21 03/01/22 History fluticasone furoate 200 1 inh INHALATION QAM 10/15/21 03/01/22 History mcg-vilanterol 25 mcg/dose inhalation powder (Breo Ellipta) dexamethasone 4 mg tablet 8 mg PO WK 11/16/21 03/01/22 History enoxaparin 150 mg/mL subcutaneous See Rx Instructions SUBCUT DAILY 02/20/22 03/01/22 Rx syringe (Lovenox) #30 syr allopurinol 100 mg tablet 100 mg PO BID #180 tab 02/23/22 03/01/22 Rx potassium citrate 10 mEq (1,080 10 meq PO BID 90 Days #180 tab 02/23/22 03/01/22 Rx mg) tablet,extended release (Urocit-K 10) dutasteride 0.5 mg capsule 0.5 mg PO QAM #90 cap 02/26/22 03/01/22 Rx fluconazole 100 mg tablet 400 mg PO DAILY 03/01/22 03/01/22 History Patient History Medical History (HFpEF) heart failure with preserved ejection fraction Anemia BASELINE 8-9 RANGE BPH loc w urin obs/LUTS Calculus of kidney Cancer MULTIPLE MYELOMA (DX'D 2015); stem cell transplant, chemo Cryptococcal pneumonitis 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 Depression GERD (gastroesophageal reflux disease) Gout History of nephrolithiasis History of pneumothorax 2019 with lung biopsy History of pulmonary embolism [place] (hard of hearing) Irregular heartbeat 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 Port-A-Cath in place Left chest Pulmonary embolism 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); 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 SOB (shortness of breath) on exertion Thrombocytopenia Tremor Surgical History Bone marrow replaced by transplant History of cataract surgery RT History of chest tube placement History of lung biopsy benign Family History Father Cardiac disorder Heart disease Mother Cancer Stroke Other No family history of adverse response to anesthesia Social History Smoking Status: Unknown if ever smoked Second Hand Exposure: No; Hx Alcohol Use: No Hx Substance Use: No Preferred Language: Setswana Communication Ability: Effective Visual Impairment: No Limitations Lokie Engineer Required: Yes Beliefs That Will Affect Care: None marital status: Current Living Situation: Spouse current occupational status: retired How many Children do You have: 2 Feels Safe at Home: Yes Safety Concerns: Feels Safe At This Time during the past year weight has: remained stable Assistive Devices: Cane Review of Systems Review of Systems: All systems reviewed & are unremarkable except as noted in HPI & below Physical Exam Physical Exam: Constitutional: No acute distress HEENT: EOMI, PERRLA Respiratory system: Decreased air entry bilaterally, positive crackles appreciated bilaterally more on the left side, no wheeze, no rhonchi CVS: S1-S2 positive, no murmurs or gallops Abdomen: Soft, nontender, nondistended, positive bowel sounds x4, obese Extremities: +2 pulses bilaterally radialis/ dorsalis pedis, no cyanosis, +1 pitting edema bilateral lower extremity Neuro: Awake alert oriented x3 Psych: Normal mood and affect G/U: No Gonzalez Skin: no rashes, warm and dry Lymphatic: no cervical or axillary lymphadenopathy Results & Data Results & Data ([facility]) Vital Signs (Past 12 Hours) Vital Signs Temp Pulse Pulse Resp BP Pulse Ox 03/02/22 07:45 36.3 C L 81 20 148/83 H 96 03/02/22 00:27 36.2 C L 100 H 22 154/82 H 94 03/01/22 22:52 86 17 93 03/01/22 22:36 88 16 92 03/01/22 22:07 97 H 22 92 03/01/22 20:42 99 H 22 155/96 H 90 Laboratory Results 03/02/22 06:15 03/02/22 06:15 PG Care Time/CCT Total # of Minutes Spent Total Time Spent with Patient: Total time spent is greater than 50% in coordination of care (as documented) at patient's floor/unit and/or counseling patient: [place] [address] Initial Inpt Care Lvl 3 Patient Type New Diagnoses Acute respiratory failure with hypoxia J96.[address] R93.89 Multiple myeloma C90.00
[2022-03-02] MEDS: CITALOPRAM 20 MG TAB PO SCH (08:27)
[2022-03-02] MEDS: FLUCONAZOLE 100 MG TAB PO SCH (08:27)
[2022-03-02] MEDS: FLUTICASONE/VILANTEROL 200/25MCG 14 PUFFS/INHALER INH SCH (08:27)
[2022-03-02] MEDS: FUROSEMIDE 20 MG TAB PO SCH (08:27)
--- NOTE | 2022-03-02 08:39 | Hospitalist Progress Note ---
Date of Service March 02, 2022 Assessment & Plan (1) Shortness of breath: Plan: Presents with worsening shortness of breath, acute respiratory failure with hypoxia, with worsening ground-glass opacities on CT angiogram chest. Negative for PE. -->Recent admission January 2022 for acute appendicitis treated with antibiotics/no surgery Currently being treated for cryptococcal pneumonia with over 1 month of fluconazole proBNP negative, making heart failure not likely Hypoxic into the 80s prior to admission, requiring supplemental O2 Suspect all secondary to pneumonia-he is immunocompromised due to history of myeloma on chemotherapy Abx: continue Zosyn, Vancomycin for PNA Continue home fluconazole for cryptococcus pneumonia (completed 1 month thus far) Sputum culture pending Blood cultures pending Records from [facility] Pulm requested Continue home inhalers, incentive spirometer Not on O2 at home -- will need two step prior to discharge Currently on 5L --> SpO2 96% and asked RN to titrate to maintain sat >90 Pulmonology consulted -- appreciate recommendations No role for steroids at this time -- on decadron 8mg weekly on WBC wnl, afebrile Continue to monitor (2) Acute respiratory failure with hypoxia: Plan: Secondary to pneumonia Continue supplemental O2 to keep pulse ox greater than 90% (3) Cryptococcal pneumonitis: Plan: Continue fluconazole 400 mg p.o. once daily Holding chemotherapy for the last 2 months (4) Diarrhea: Plan: Has had 8 nonbloody loose stools in the last 24 hours No antibiotics last month except for fluconazole -Added stool panel PCR, avoid Imodium use until proven no bacterial infection No abdominal pains-no need for further imaging at this time (5) History of pulmonary embolism: Plan: Continue Lovenox 1.5 mg/KG SQ once daily Follows with anticoagulation clinic Previously on Coumadin but has been held while he is on fluconazole and they had been utilzing lovenox (6) (HFpEF) heart failure with preserved ejection fraction: Plan: No acute issues, does not appear hypervolemic Continue home Lasix 20 Mg p.o. once daily Continue blood pressure control (7) Light chain myeloma: Plan: Follows with oncology at [facility] Holding all home chemotherapy due to recent infection Still takes dexamethasone once a week on Continue suppressive acyclovir 400 mg p.o. twice daily (8) Hypokalemia: Plan: Secondary to poor p.o. intake and GI losses Continue supplementation with potassium chloride 40 mEq p.o. [id number] BMP magnesium in the morning Replaced magnesium Repeat wnl (9) Thrombocytopenia: Plan: Mild at 117 Likely secondary to acute illness Follow CBC (10) Anemia: Plan: Mild and at baseline Follow CBC Normocytic but was macrocytic. 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 I agree with the sanchez components of her documentation. Bony Larkin MD Subjective Patient evaluated this morning. States feeling a little better than day prior. Initially told RN this morning he thought he was in [facility] but knew he was in the hospital for pneumonia. He tells me he is in [place] and alert/oriented. States some issues with memory/balance. Discussed I checked B12 and was low and replacement ordered. Denies any fever/chills. Not typically on oxygen at home. Has not yet seen pulmonology yet this morning but discussed will await further recommendations but continue current course for now. He had been holding chemo x 2 months, and recent completed diflucan x 1 month. Had been having diarrhea, states less currently but still loose. Asked RN to obtain sample next time he uses bathroom. Denies abdominal pain/nausea at this time and states decent appetite. Questions/concerns addressed at this time. Physical Exam Constitutional: WD/WN, vitals as above Eyes: PERRL, conjunctivae normal, anicteric sclerae ENMT: external ear and nose normal, oropharynx normal Neck: trachea midline, no thyromegaly Port L chest, covered Respiratory: normal respiratory effort; no cough Auscultation: + crackles (bilateral lower/mid lung willis); no rhonchi and no wheezes on 5L NC, SpO2 96% Cardiovascular: RRR, no murmur, no edema Chest (Breasts): Chest: normal inspection of chest Gastrointestinal (Abdomen): normal bowel sounds, soft, nontender, no hepatosplenomegaly prior surgical incisions well healed Musculoskeletal: Extremities: extremities normal to inspection; no cyanosis and no clubbing Skin: no rashes, warm and dry Neurologic: moves all extremities and awake; no focal motor deficits Psychiatric: A+Ox3, euthymic affect Lymphatic: no lymphedema Results & Data Results & Data ([facility]) Vital Signs (Past 12 Hours) Vital Signs Temp Pulse Pulse Resp BP Pulse Ox 03/02/22 07:45 36.3 C L 81 20 148/83 H 96 03/02/22 00:27 36.2 C L 100 H 22 154/82 H 94 03/01/22 22:52 86 17 93 03/01/22 22:36 88 16 92 03/01/22 22:07 97 H 22 92 03/01/22 20:42 99 H 22 155/96 H 90 Laboratory Results 03/02/22 03/02/22 03/02/22 Range/Units 08:51 08:51 06:15 WBC (4.8-10.8) K/uL RBC (4.7-6.1) M/uL Hgb (14.0-18.0) g/dL Hct (42-52) % MCV (80-100) fL MCH (25-34) pg MCHC (32-36) g/dL RDW Std Deviation (36.4-46.3) fL RDW Coeff of Eyal (11.5-14.5) % Plt Count (130-400) K/uL MPV (7.4-10.4) fL Immature Gran % (Auto) % Neut % (Auto) % Lymph % (Auto) % Rich % (Auto) % Eos % (Auto) % Baso % (Auto) % Neut # (Auto) (1.4-6.5) K/uL Lymph # (Auto) (1.2-3.4) K/uL Rich # (Auto) (0.11-0.59) K/uL Eos # (Auto) (0-0.5) K/uL Baso # (Auto) (0-0.2) K/uL Immature Gran # (Auto) (0.00-0.02) K/uL Sodium (136-145) mmol/L Potassium (3.5-5.1) mmol/L Chloride (98-107) mmol/L Carbon Dioxide (21-32) mmol/L Anion Gap (3-11) BUN (6-23) mg/dl Creatinine (0.6-1.4) mg/dl Est Cr Clr Drug Dosing Est GFR ( Amer) ml/min Est GFR (Non-Af Amer) ml/min BUN/Creatinine Ratio (10-20) Glucose (70-99(Fasting)) mg/dl Calcium (8.5-10.1) mg/dl Magnesium (1.7-2.4) mg/dl Iron 65 (35-175) mcg/dl TIBC 258 (250-450) mcg/dl Unsaturated IBC 193 (155-355) mcg/dl Transferrin % Sat 25 (20-50) % Ferritin 557.7 H (8-388) ng/ml Total Bilirubin (0.2-1.0) mg/dl AST (13-39) U/L ALT (7-52) U/L Alkaline Phosphatase (34-104) U/L Troponin I High Sens (0-20) pg/ml C-Reactive Protein (0-0.5) mg/dl B-Natriuretic Peptide (0-100) pg/ml Total Protein (6.0-8.3) gm/dl Albumin (3.4-5.0) gm/dl Globulin (2.5-4.0) gm/dl Albumin/Globulin Ratio (0.9-2) Vitamin B12 162 L (180-914) pg/ml Procalcitonin < 0.05 (0-0.5) ng/ml TSH (0.300-4.500) uIu/ml Urine Color Urine Appearance (Clear) Urine pH (4.5-7.5) Ur Specific [place] (1.000-1.030) Urine Protein (Negative) Urine Glucose (UA) (Negative) Urine Ketones (Negative) Urine Blood (Negative) Urine Nitrite (Negative) Urine Bilirubin (Negative) Urine Urobilinogen (Negative) Ur Leukocyte Esterase (Negative) Urine WBC (Auto) (0-5) /hpf Urine RBC (Auto) (0-4) /hpf U Hyaline Cast (Auto) (0-5) /lpf U Epithel Cells (Auto) (0-5) /lpf Urine Bacteria (Auto) (Negative) Tacrolimus SARS-CoV-2 (PCR) (Negative) Influenza Type A (PCR) (Neg) Influenza Type B (PCR) (Neg) RSV (RT-PCR) (Neg) 03/02/22 03/02/22 03/02/22 Range/Units 06:15 06:15 00:30 WBC 8.42 (4.8-10.8) K/uL RBC 3.50 L (4.7-6.1) M/uL Hgb 11.7 L (14.0-18.0) g/dL Hct 34.5 L (42-52) % MCV 98.6 (80-100) fL MCH 33.4 (25-34) pg MCHC 33.9 (32-36) g/dL RDW Std Deviation 62.0 H (36.4-46.3) fL RDW Coeff of Eyal 17.3 H (11.5-14.5) % Plt Count 117 L (130-400) K/uL MPV 9.8 (7.4-10.4) fL Immature Gran % (Auto) 0.6 % Neut % (Auto) 91.3 % Lymph % (Auto) 6.7 % Rich % (Auto) 1.3 % Eos % (Auto) 0.0 % Baso % (Auto) 0.1 % Neut # (Auto) 7.69 H (1.4-6.5) K/uL Lymph # (Auto) 0.56 L (1.2-3.4) K/uL Rich # (Auto) 0.11 (0.11-0.59) K/uL Eos # (Auto) 0.00 (0-0.5) K/uL Baso # (Auto) 0.01 (0-0.2) K/uL Immature Gran # (Auto) 0.05 H (0.00-0.02) K/uL Sodium 137 (136-145) mmol/L Potassium 3.8 (3.5-5.1) mmol/L Chloride 109 H (98-107) mmol/L Carbon Dioxide 20 L (21-32) mmol/L Anion Gap 8 (3-11) BUN 15 (6-23) mg/dl Creatinine 0.79 (0.6-1.4) mg/dl Est Cr Clr Drug Dosing 90.4 Est GFR ( Amer) 101.1 ml/min Est GFR (Non-Af Amer) 87.2 ml/min BUN/Creatinine Ratio 19.0 (10-20) Glucose 128 H (70-99(Fasting)) mg/dl Calcium 8.3 L (8.5-10.1) mg/dl Magnesium 2.2 (1.7-2.4) mg/dl Iron (35-175) mcg/dl TIBC (250-450) mcg/dl Unsaturated IBC (155-355) mcg/dl Transferrin % Sat (20-50) % Ferritin (8-388) ng/ml Total Bilirubin 0.4 (0.2-1.0) mg/dl AST 12 L (13-39) U/L ALT 28 (7-52) U/L Alkaline Phosphatase 56 (34-104) U/L Troponin I High Sens (0-20) pg/ml C-Reactive Protein 11.11 H (0-0.5) mg/dl B-Natriuretic Peptide (0-100) pg/ml Total Protein 5.3 L (6.0-8.3) gm/dl Albumin 3.1 L (3.4-5.0) gm/dl Globulin 2.2 L (2.5-4.0) gm/dl Albumin/Globulin Ratio 1.4 (0.9-2) Vitamin B12 (180-914) pg/ml Procalcitonin (0-0.5) ng/ml TSH (0.300-4.500) uIu/ml Urine Color Yellow Urine Appearance Clear (Clear) Urine pH 5.0 (4.5-7.5) Ur Specific [place] > 1.045 H (1.000-1.030) Urine Protein Trace H (Negative) Urine Glucose (UA) Negative (Negative) Urine Ketones Negative (Negative) Urine Blood 2+ H (Negative) Urine Nitrite Negative (Negative) Urine Bilirubin Negative (Negative) Urine Urobilinogen Negative (Negative) Ur Leukocyte Esterase Negative (Negative) Urine WBC (Auto) 1-5 (0-5) /hpf Urine RBC (Auto) 5-10 H (0-4) /hpf U Hyaline Cast (Auto) 0 (0-5) /lpf U Epithel Cells (Auto) 0-5 (0-5) /lpf Urine Bacteria (Auto) Negative (Negative) Tacrolimus SARS-CoV-2 (PCR) (Negative) Influenza Type A (PCR) (Neg) Influenza Type B (PCR) (Neg) RSV (RT-PCR) (Neg) 03/01/22 03/01/22 03/01/22 Range/Units 21:11 15:32 15:32 WBC (4.8-10.8) K/uL RBC (4.7-6.1) M/uL Hgb (14.0-18.0) g/dL Hct (42-52) % MCV (80-100) fL MCH (25-34) pg MCHC (32-36) g/dL RDW Std Deviation (36.4-46.3) fL RDW Coeff of Eyal (11.5-14.5) % Plt Count (130-400) K/uL MPV (7.4-10.4) fL Immature Gran % (Auto) % Neut % (Auto) % Lymph % (Auto) % Rich % (Auto) % Eos % (Auto) % Baso % (Auto) % Neut # (Auto) (1.4-6.5) K/uL Lymph # (Auto) (1.2-3.4) K/uL Rich # (Auto) (0.11-0.59) K/uL Eos # (Auto) (0-0.5) K/uL Baso # (Auto) (0-0.2) K/uL Immature Gran # (Auto) (0.00-0.02) K/uL Sodium (136-145) mmol/L Potassium (3.5-5.1) mmol/L Chloride (98-107) mmol/L Carbon Dioxide (21-32) mmol/L Anion Gap (3-11) BUN (6-23) mg/dl Creatinine (0.6-1.4) mg/dl Est Cr Clr Drug Dosing Est GFR ( Amer) ml/min Est GFR (Non-Af Amer) ml/min BUN/Creatinine Ratio (10-20) Glucose (70-99(Fasting)) mg/dl Calcium (8.5-10.1) mg/dl Magnesium (1.7-2.4) mg/dl Iron (35-175) mcg/dl TIBC (250-450) mcg/dl Unsaturated IBC (155-355) mcg/dl Transferrin % Sat (20-50) % Ferritin (8-388) ng/ml Total Bilirubin (0.2-1.0) mg/dl AST (13-39) U/L ALT (7-52) U/L Alkaline Phosphatase (34-104) U/L Troponin I High Sens (0-20) pg/ml C-Reactive Protein (0-0.5) mg/dl B-Natriuretic Peptide 59 (0-100) pg/ml Total Protein (6.0-8.3) gm/dl Albumin (3.4-5.0) gm/dl Globulin (2.5-4.0) gm/dl Albumin/Globulin Ratio (0.9-2) Vitamin B12 (180-914) pg/ml Procalcitonin (0-0.5) ng/ml TSH 3.634 (0.300-4.500) uIu/ml Urine Color Urine Appearance (Clear) Urine pH (4.5-7.5) Ur Specific [place] (1.000-1.030) Urine Protein (Negative) Urine Glucose (UA) (Negative) Urine Ketones (Negative) Urine Blood (Negative) Urine Nitrite (Negative) Urine Bilirubin (Negative) Urine Urobilinogen (Negative) Ur Leukocyte Esterase (Negative) Urine WBC (Auto) (0-5) /hpf Urine RBC (Auto) (0-4) /hpf U Hyaline Cast (Auto) (0-5) /lpf U Epithel Cells (Auto) (0-5) /lpf Urine Bacteria (Auto) (Negative) Tacrolimus Pending SARS-CoV-2 (PCR) (Negative) Influenza Type A (PCR) (Neg) Influenza Type B (PCR) (Neg) RSV (RT-PCR) (Neg) 03/01/22 03/01/22 03/01/22 Range/Units 15:32 15:32 15:26 WBC 11.70 H (4.8-10.8) K/uL RBC 3.79 L (4.7-6.1) M/uL Hgb 12.5 L (14.0-18.0) g/dL Hct 37.2 L (42-52) % MCV 98.2 (80-100) fL MCH 33.0 (25-34) pg MCHC 33.6 (32-36) g/dL RDW Std Deviation 63.0 H (36.4-46.3) fL RDW Coeff of Eyal 17.6 H (11.5-14.5) % Plt Count 119 L (130-400) K/uL MPV 10.3 (7.4-10.4) fL Immature Gran % (Auto) 0.7 % Neut % (Auto) 91.9 % Lymph % (Auto) 3.4 % Rich % (Auto) 3.7 % Eos % (Auto) 0.2 % Baso % (Auto) 0.1 % Neut # (Auto) 10.76 H (1.4-6.5) K/uL Lymph # (Auto) 0.40 L (1.2-3.4) K/uL Rich # (Auto) 0.43 (0.11-0.59) K/uL Eos # (Auto) 0.02 (0-0.5) K/uL Baso # (Auto) 0.01 (0-0.2) K/uL Immature Gran # (Auto) 0.08 H (0.00-0.02) K/uL Sodium 136 (136-145) mmol/L Potassium 3.4 L (3.5-5.1) mmol/L Chloride 104 (98-107) mmol/L Carbon Dioxide 20 L (21-32) mmol/L Anion Gap 12 H (3-11) BUN 18 (6-23) mg/dl Creatinine 1.04 (0.6-1.4) mg/dl Est Cr Clr Drug Dosing Not Reportable Est GFR ( Amer) 80.5 ml/min Est GFR (Non-Af Amer) 69.4 ml/min BUN/Creatinine Ratio 17.3 (10-20) Glucose 105 H (70-99(Fasting)) mg/dl Calcium 8.8 (8.5-10.1) mg/dl Magnesium 1.8 (1.7-2.4) mg/dl Iron (35-175) mcg/dl TIBC (250-450) mcg/dl Unsaturated IBC (155-355) mcg/dl Transferrin % Sat (20-50) % Ferritin (8-388) ng/ml Total Bilirubin 0.4 (0.2-1.0) mg/dl AST 13 (13-39) U/L ALT 31 (7-52) U/L Alkaline Phosphatase 62 (34-104) U/L Troponin I High Sens 11.2 (0-20) pg/ml C-Reactive Protein (0-0.5) mg/dl B-Natriuretic Peptide (0-100) pg/ml Total Protein 5.6 L (6.0-8.3) gm/dl Albumin 3.3 L (3.4-5.0) gm/dl Globulin 2.3 L (2.5-4.0) gm/dl Albumin/Globulin Ratio 1.4 (0.9-2) Vitamin B12 (180-914) pg/ml Procalcitonin (0-0.5) ng/ml TSH (0.300-4.500) uIu/ml Urine Color Urine Appearance (Clear) Urine pH (4.5-7.5) Ur Specific [place] (1.000-1.030) Urine Protein (Negative) Urine Glucose (UA) (Negative) Urine Ketones (Negative) Urine Blood (Negative) Urine Nitrite (Negative) Urine Bilirubin (Negative) Urine Urobilinogen (Negative) Ur Leukocyte Esterase (Negative) Urine WBC (Auto) (0-5) /hpf Urine RBC (Auto) (0-4) /hpf U Hyaline Cast (Auto) (0-5) /lpf U Epithel Cells (Auto) (0-5) /lpf Urine Bacteria (Auto) (Negative) Tacrolimus SARS-CoV-2 (PCR) NEGATIVE (Negative) Influenza Type A (PCR) Negative (Neg) Influenza Type B (PCR) Negative (Neg) RSV (RT-PCR) Negative (Neg) Diagnostic Findings Chest X-Ray 03/01/22 15:03 SINGLE VIEW CHEST CLINICAL HISTORY: Generalized weakness. FINDINGS: An AP, portable, upright chest radiograph is compared to study dated 01/17/2022 and correlated with chest CT dated 12/11/2021. The examination is degraded by portable technique, apical lordotic positioning, and patient rotation. A left internal jugular central venous infusion port is unchanged in position. The heart is enlarged. The pulmonary vasculature is noncongested. There is airspace consolidation throughout the left mid to lower lung. Mild patchy consolidation is suggested in the right lung. No large pleural effusion or pneumothorax is seen. The bony thorax is grossly intact. IMPRESSION: There is airspace consolidation throughout the left mid to lower lung with milder patchy opacities seen in the right lung. Correlate clinically for evidence of pneumonia. Radiographic follow-up to resolution is recommended. ACT 112: Negative or not required by law. Electronically signed by: London Sagastume M.D. 03/01/2022 3:51 PM Chest CTA 03/01/22 16:41 CT ANGIOGRAM OF THE CHEST CLINICAL HISTORY: Pneumonia. Hypoxia. History of multiple myeloma. COMPARISON STUDY: Chest x-ray dated 03/01/2022. Chest CT dated 12/11/2021. TECHNIQUE: Following the IV administration of 120. cc of Optiray 320, CT angiogram of the chest was performed from the upper abdomen to the thoracic inlet utilizing the pulmonary embolus protocol. Images are reviewed in the axial, sagittal, and coronal planes. 3-D MIPS images are created and assessed. IV contrast was administered without complication. A dose lowering technique was utilized adhering to the principles of ALARA. The examination is significantly compromised by motion artifact. CT DOSE: 621.72 mGy.cm FINDINGS: Thyroid: Normal in size and heterogeneous in attenuation. Thoracic aorta: There is atherosclerotic calcification of the thoracic aorta, with is normal in caliber and demonstrates standard 3-vessel arch anatomy. No dissection is seen. Pulmonary vasculature: The pulmonary trunk is normal in caliber. There are no filling defects identified in main or lobar pulmonary branches to suggest pulmonary embolus. The segmental branches in the upper lobes appear clear. The segmental and subsegmental branches cannot be evaluated in the lower lobes due to motion artifact. Heart: A left internal jugular central venous infusion port is unchanged in position. The heart is normal in size and without pericardial effusion. The coronary arteries and mitral annulus are densely calcified. Lungs and pleural spaces: Evaluation of the lung parenchyma is severely degraded by motion artifact. The trachea and central airways are clear. Confluent groundglass consolidation is seen throughout both lungs, left greater than right. Dense airspace consolidation in the right upper lobe has modestly improved as compared to 12/11/2021. No pleural effusion is identified. Mediastinum: There is no mediastinal lymphadenopathy. Nicolette: Clear. Axillae: There is no axillary lymphadenopathy. Upper abdomen: There is a small hiatal hernia. Partially visualized upper abdominal viscera is otherwise grossly unremarkable. Skeletal structures: The skeletal structures are heterogeneously osteopenic. There are numerous chronic compression deformities seen throughout the thoracic spine which are similar to previous. Osteolytic bone lesions are again noted. The largest is present in the posterior aspect of T11 with posterior cortical breakthrough. Arthritic change is noted in the shoulders. There are healed bilateral rib fractures. IMPRESSION: 1. Severely motion degraded examination. 2. There is no evidence of central pulmonary embolus in the main or lobar pulmonary arteries. The segmental and subsegmental branches cannot be evaluated in the lower lobes. 3. Multifocal focal groundglass consolidation is again seen throughout both lungs. Overall this appears worsened as compared to 12/11/2021. 4. More confluent consolidative change in the right upper lobe has modestly improved from previous. 5. No pleural effusion. 6. 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 ACT 112: Negative or not required by law. Electronically signed by: Londno Sagastume M.D. 03/01/2022 5:20 PM PG Care Time/CCT Total # of Minutes Spent Total Time Spent with Patient: Total time spent is greater than 50% in coordination of care (as documented) at patient's floor/unit and/or counseling patient: Coding Level of Care Code 48563 Subseq Hosp Care Lvl 3 Diagnoses Shortness of breath R06.02 Acute respiratory failure with hypoxia J96.01 Cryptococcal pneumonitis B45.0 Diarrhea R19.7 History of pulmonary embolism Z86.711 (HFpEF) heart failure with preserved ejection fraction I50.30 Light chain myeloma C90.00 Hypokalemia E87.6 Thrombocytopenia D69.6 Anemia D64.9 BPH loc w urin obs/LUTS N40.1 GERD (gastroesophageal reflux disease) K21.9 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
[2022-03-02] MEDS ORDERED: ENOXAPARIN 150 MG/ML SYR SQ SCH (09:00)
[2022-03-02 09:57] LABS: Ferritin 557.7 ng/ml (8-388)
[2022-03-02] MEDS ORDERED: VANCOMYCIN HCL 1,000 MG in SODIUM CHLORIDE 0.9% 250 ML IV SCH (10:00)
[2022-03-02] MEDS: CYANOCOBALAMIN 1000 MCG/ML VIAL IM SCH (11:32)
[2022-03-02] MEDS: predniSONE 20 MG TAB PO SCH ×2 (14:19→20:38)
[2022-03-02] MEDS: PANTOprazole 40 MG TAB PO SCH ×2 (14:19→20:38)
[2022-03-02 15:45] LABS: Adenovirus F 40/41 PCR Not Detected (NotDetected); Astrovirus PCR Not Detected (NotDetected); Campylobacter PCR Not Detected (NotDetected); Clostridium diff Toxin A/B PCR Not Detected (NotDetected); Cryptosporidium PCR Not Detected (NotDetected); Cyclospora cayetanensis PCR Not Detected (NotDetected); Entamoeba histolytica PCR Not Detected (NotDetected); Enteroaggregative E.coli(EAEC) Not Detected (NotDetected); Enteropathogenic E.coli (EPEC) Not Detected (NotDetected); Enterotoxigenic E.coli (ETEC) Not Detected (NotDetected); Giardia lamblia PCR Not Detected (NotDetected); Norovirus GI/GII PCR Not Detected (NotDetected); Plesiomonas shigelloides PCR Not Detected (NotDetected); Rotavirus A PCR Not Detected (NotDetected); Salmonella PCR Not Detected (NotDetected); Sapovirus PCR Not Detected (NotDetected); Shiga-like Toxin E.coli (STEC) Not Detected (NotDetected); Shigella/Enteroinvasive E.coli Not Detected (NotDetected); Vibrio cholerae PCR Not Detected (NotDetected); Vibrio species PCR Not Detected (NotDetected); Yersinia enterocolitica PCR Not Detected (NotDetected)
[2022-03-02] MEDS: SULFAMETHOXAZOLE/TRIMETHOPRIM DS 800/160MG TAB PO SCH ×2 (16:58→23:04)
[2022-03-02] MEDS: HEPARIN 100 UNIT/ML 5ML FLUSH FLUSH PRN (17:02)
[2022-03-03] MEDS: PIPERACILLIN/TAZOBACTAM 3.375 GM in DEXTROSE 5% 100 ML IV SCH ×3 (01:46→17:13)
[2022-03-03] MEDS: SULFAMETHOXAZOLE/TRIMETHOPRIM DS 800/160MG TAB PO SCH ×3 (06:13→22:16)
[2022-03-03] MEDS: ACYCLOVIR 400 MG TAB PO SCH ×2 (08:03→20:20)
[2022-03-03] MEDS: FUROSEMIDE 20 MG TAB PO SCH (08:03)
[2022-03-03] MEDS: predniSONE 20 MG TAB PO SCH ×2 (08:04→20:18)
[2022-03-03] MEDS: allopurinoL 100 MG TAB PO SCH ×2 (08:04→20:19)
[2022-03-03] MEDS: POTASSIUM CITRATE 10 MEQ TAB PO SCH ×2 (08:04→20:19)
[2022-03-03] MEDS: CYANOCOBALAMIN 1000 MCG/ML VIAL IM SCH (08:04)
[2022-03-03] MEDS: FLUTICASONE/VILANTEROL 200/25MCG 14 PUFFS/INHALER INH SCH (08:04)
[2022-03-03] MEDS: FLUCONAZOLE 100 MG TAB PO SCH (08:04)
[2022-03-03] MEDS: PANTOprazole 40 MG TAB PO SCH ×2 (08:04→20:19)
[2022-03-03] MEDS: CITALOPRAM 20 MG TAB PO SCH (08:05)
--- NOTE | 2022-03-03 08:55 | Hospitalist Progress Note ---
Date of Service March 03, 2022 Assessment & Plan (1) Shortness of breath: Plan: Presents with worsening shortness of breath, acute respiratory failure with hypoxia, with worsening ground-glass opacities on CT angiogram chest. Negative for PE. -->Recent admission January 2022 for acute appendicitis treated with antibiotics/no surgery Currently being treated for cryptococcal pneumonia with over 1 month of fluconazole proBNP negative, making heart failure not likely Hypoxic into the 80s prior to admission, requiring supplemental O2 Suspect all secondary to pneumonia-he is immunocompromised due to history of myeloma on chemotherapy Abx: continue Zosyn. Vanco discontinued (MRSA negative) for PNA Continue home fluconazole for cryptococcus pneumonia (completed 1 month thus far) WBC wnl, afebrile currently 93% on 4L Sputum culture pending -- monitor Blood cultures NGTD Records from [facility] Pul requested Continue home inhalers, incentive spirometer Pulmonology consulted - acute hypoxic respiratory failure with diffuse ground-glass opacities bilaterally - finding dating back to December 2021 - did have consolidative process in RUL which has improved since then (could be from cryptococcal d/t dense consolidative process), however GGO unlikely to be from cryptococcus - Ddx including PJP given immunocompromised patient, checking autoimmune labs as well - Started Bactrim 3 DS TID for 16mg/kg/day on 03/03 - Started prednisone 40mg BID x 5 days, then daily x 5 days, then 20mg x 11 days (on Decadron 8mg ) - Protonix BID given high dose steroids NPO after midnight for Bronch/BAL Holding Lovenox for tonight Will likely need 2step prior to discharge (2) Acute respiratory failure with hypoxia: Plan: Secondary to pneumonia Continue supplemental O2 to keep pulse ox greater than 90% (3) Cryptococcal pneumonitis: Plan: Continue fluconazole 400 mg p.o. once daily Holding chemotherapy for the last 2 months (4) Diarrhea: Plan: Has had 8 nonbloody loose stools in the last 24 hours No antibiotics last month except for fluconazole -Added stool panel PCR, avoid Imodium use until proven no bacterial infection No abdominal pains-no need for further imaging at this time No further BMs at this time since admission (5) History of pulmonary embolism: Plan: Continue Lovenox 1.5 mg/KG SQ once daily -- HOLDING FOR BRONCH TODAY Follows with anticoagulation clinic Previously on Coumadin but has been held while he is on fluconazole and they had been utilizing Lovenox (6) (HFpEF) heart failure with preserved ejection fraction: Plan: No acute issues, does not appear hypervolemic but BNP slightly elevated. monitor for now but consider extra dose lasix if needed (maintained on 20mg PO daily) while on steroids Continue blood pressure control (7) Light chain myeloma: Plan: Follows with oncology at [facility] Holding all home chemotherapy due to recent infection Still takes dexamethasone once a week on but using prednisone as above Continue suppressive acyclovir 400 mg p.o. twice daily (8) Hypokalemia: Plan: Secondary to poor p.o. intake and GI losses 3.6 on repeat mag wnl BMP in AM (9) Thrombocytopenia: Plan: Improved --> plt 117--> 130 Likely secondary to acute illness Follow CBC (10) Anemia: Plan: Mild and at baseline Follow CBC Normocytic but was macrocytic. Patient does have hx myeloma though Did check B12 given gait/memory --> LOW 162 AND IM REPLACEMENT ORDERED INPATIENT, PO AT DISCHARGE REC'D (11) BPH loc w urin obs/LUTS: Plan: No acute issues Bladder scan as needed Continue home dutasteride (12) GERD (gastroesophageal reflux disease): Plan: Continue home PPI, increased to BID while on steroids mag replaced and repeat wnl (13) Osteoporosis 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: (14) Depression: Plan: Continue home Celexa (15) Calculus of kidney: Plan: With a history of uric acid stones, follows with urology Continue home Urocit-K and allopurinol (16) B12 deficiency: Plan: checked, low replacement ordered should also help with anemia Plan: DVT prophylaxis-SCDs, Lovenox as above on hold for bronch DNR/DNI updated on phone today, plans to visit tomorrow after procedure Continued inpatient stay Admission and Anticipated Discharge Date Admission Date: March 01, 2022 Supervising Physician Co-Signing Physician Notes MARCIAL Supervision Note: I did not personally see or examine the patient today, but I verified all sanchez points of MARCIAL Hoffmann's assessment and plan with the following exceptions/additions: None Subjective Evaluated this afternoon. Sitting up at bedside eating lunch. Stated had an issue with getting blood draw this morning. Patient states feels about the same, currently on 3L NC. HOlding lovenox for bronch in AM. To update on phone this evening. He states is passing gas but no BM. Will ask RN to provide some prune juice and order medications to assist. No fever/chills, chest pain, nausea or vomiting at this time. Questions/concerns addressed. Review of Systems Review of Systems: All systems reviewed & are unremarkable except as noted in HPI & below Physical Exam Physical Exam: Constitutional:L WD/WN, vitals as a yanci, fatigued kiersten earing, sitting up at side of bed Eyes: PERRL,, anicteric sclerae ENMT: external ear and n ose normal, oropha rynx normal Neck: trachea midline, n o thyromegaly Respiratory: normal respiratory effort; no cough Auscultation: + crackles (scattere d, bilateral L>R); no rhonchi and no wheezes on 4L NC Cardiovascular:L RRR, no murmur, no edema Chest (Breasts): Chest: [place], covered Gastrointestinal ( Abdomen): normal bowel sound s, soft, nontender , no hepatosplenom egaly Musculoskeletal: Extremities: extre mities normal to i nspection; no cyan osis and no clubbi ng Skin: no rashes, warm an d dry Neurologic: moves all extremit ies and awake; no focal motor defici ts Psychiatric: A+Ox3, pleasant an d cooperative Lymphatic: no lymphedema Results & Data Results & Data ([facility]) Vital Signs (Past 12 Hours) Vital Signs Temp Pulse Resp BP BP Pulse Ox 03/03/22 07:12 36.8 C 77 20 153/68 H 93 03/02/22 22:13 36.8 C 88 20 147/75 H 93 Laboratory Results 03/03/22 03/03/22 03/03/22 Range/Units 09:49 09:49 09:49 WBC 13.03 H (4.8-10.8) K/uL RBC 3.76 L (4.7-6.1) M/uL Hgb 12.7 L (14.0-18.0) g/dL Hct 37.1 L (42-52) % MCV 98.7 (80-100) fL MCH 33.8 (25-34) pg MCHC 34.2 (32-36) g/dL RDW Std Deviation 62.0 H (36.4-46.3) fL RDW Coeff of Eyal 17.1 H (11.5-14.5) % Plt Count 130 (130-400) K/uL MPV 10.4 (7.4-10.4) fL Immature Gran % (Auto) 0.7 % Neut % (Auto) 93.7 % Lymph % (Auto) 3.8 % [place] % (Auto) 1.8 % Eos % (Auto) 0.0 % Baso % (Auto) 0.0 % Neut # (Auto) 12.20 H (1.4-6.5) K/uL Lymph # (Auto) 0.50 L (1.2-3.4) K/uL [place] # (Auto) 0.24 (0.11-0.59) K/uL Eos # (Auto) 0.00 (0-0.5) K/uL Baso # (Auto) 0.00 (0-0.2) K/uL Immature Gran # (Auto) 0.09 H (0.00-0.02) K/uL Sodium 136 (136-145) mmol/L Potassium 3.6 (3.5-5.1) mmol/L Chloride 108 H (98-107) mmol/L Carbon Dioxide 17 L (21-32) mmol/L Anion Gap 11 (3-11) BUN 21 (6-23) mg/dl Creatinine 0.98 (0.6-1.4) mg/dl Est Cr Clr Drug Dosing 72.9 ml/min Est GFR ( Amer) 86.5 ml/min Est GFR (Non-Af Amer) 74.6 ml/min BUN/Creatinine Ratio 21.4 H (10-20) Glucose 117 H (70-99(Fasting)) mg/dl Calcium 8.5 (8.5-10.1) mg/dl Magnesium 2.1 (1.7-2.4) mg/dl Nasal Screen MRSA (PCR) (Negative) Urine Legionella Ag 03/02/22 03/02/22 Range/Units 17:00 00:30 WBC (4.8-10.8) K/uL RBC (4.7-6.1) M/uL Hgb (14.0-18.0) g/dL Hct (42-52) % MCV (80-100) fL MCH (25-34) pg MCHC (32-36) g/dL RDW Std Deviation (36.4-46.3) fL RDW Coeff of Eyal (11.5-14.5) % Plt Count (130-400) K/uL MPV (7.4-10.4) fL Immature Gran % (Auto) % Neut % (Auto) % Lymph % (Auto) % [place] % (Auto) % Eos % (Auto) % Baso % (Auto) % Neut # (Auto) (1.4-6.5) K/uL Lymph # (Auto) (1.2-3.4) K/uL [place] # (Auto) (0.11-0.59) K/uL Eos # (Auto) (0-0.5) K/uL Baso # (Auto) (0-0.2) K/uL Immature Gran # (Auto) (0.00-0.02) K/uL Sodium (136-145) mmol/L Potassium (3.5-5.1) mmol/L Chloride (98-107) mmol/L Carbon Dioxide (21-32) mmol/L Anion Gap (3-11) BUN (6-23) mg/dl Creatinine (0.6-1.4) mg/dl Est Cr Clr Drug Dosing ml/min Est GFR ( Amer) ml/min Est GFR (Non-Af Amer) ml/min BUN/Creatinine Ratio (10-20) Glucose (70-99(Fasting)) mg/dl Calcium (8.5-10.1) mg/dl Magnesium (1.7-2.4) mg/dl Nasal Screen MRSA (PCR) Negative (Negative) Urine Legionella Ag Pending PG Care Time/CCT Total # of Minutes Spent Total Time Spent with Patient: Total time spent is greater than 50% in coordination of care (as documented) at patient's floor/unit and/or counseling patient: Coding Level of Care Code 19324 Subseq Hosp Care Lvl 3 Diagnoses Shortness of breath R06.02 Acute respiratory failure with hypoxia J96.01 Cryptococcal pneumonitis B45.0 Diarrhea R19.7 History of pulmonary embolism Z86.711 (HFpEF) heart failure with preserved ejection fraction I50.30 Light chain myeloma C90.00 Hypokalemia E87.6 Thrombocytopenia D69.6 Anemia D64.9 BPH loc w urin obs/LUTS N40.1 GERD (gastroesophageal reflux disease) K21.9 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
--- NOTE | 2022-03-03 10:24 | Pulmonology Progress Note ---
Date of Service March 03, 2022 Assessment & Plan (1) Acute respiratory failure with hypoxia: (2) Abnormal chest CT: (3) Multiple myeloma: Plan: CT chest 03/01/2022 personally reviewed: Diffuse groundglass opacities appreciated bilaterally especially in the left upper and left lower lobe Right upper lobe consolidative process in the apex (improved compared to 12/2021) No significant mediastinal lymphadenopathy -- Acute hypoxic respiratory failure with diffuse groundglass opacities bilaterally Patient had this finding dating back to December 2021 As per the chart he has been being treated with fluconazole for possible cryptococcus pneumonia since approximately a month Patient did have dense consolidative process in the right upper lobe which has improved compared to December. Cryptococcal pneumonia usually gives dense consolidative process. Groundglass opacities appreciated bilaterally unlikely to be from cryptococcus Differential for it includes infectious versus noninfectious Infectious includes PJP given the patient is immunocompromised, viral infection can also present this result already on acyclovir prophylactically Noninfectious etiology includes autoimmune pneumonitis, drug-induced pneumonitis as well as diffuse alveolar hemorrhage Given patient's hemoglobin has been stable since December and is not having any significant hemoptysis I doubt this is diffuse alveolar hemorrhage PJP treatment started 03/02/2022 LDH 237 CRP 11.11, procalcitonin negative Nasal MRSA negative BNP 138 Plan: Follow-up LUIS with reflex, Fungitell Plan for bronchoscopy tomorrow with BAL. N.p.o. postmidnight Hold Lovenox today Risk and benefit of the procedure explained to the patient in depth He understands and agrees to go ahead with the procedure. Please note the above document was generated using voice recognition software. It may contain grammatical, syntax or spelling errors.Any formal questions or concerns about the content, text or information contained within the body of this dictation should be directly addressed to the provider for clarification. Admission and Anticipated Discharge Date Admission Date: March 01, 2022 Subjective Patient seen and examined at bedside. No acute distress, no adverse events overnight He says he feels the same Still complains of shortness of breath on minimal exertion No headache, no nausea vomiting Fair appetite No hemoptysis Review of Systems Review of Systems: All systems reviewed & are unremarkable except as noted in Subjective Physical Exam Physical Exam: Constitutional: No acute distress HEENT: EOMI, PERRLA Respiratory system: Decreased air entry bilaterally, positive crackles appreciated bilaterally more on the left side, no wheeze, no rhonchi CVS: S1-S2 positive, no murmurs or gallops Abdomen: Soft, nontender, nondistended, positive bowel sounds x4, obese Extremities: +2 pulses bilaterally radialis/ dorsalis pedis, no cyanosis, +1 pitting edema bilateral lower extremity Neuro: Awake alert oriented x3 Psych: Normal mood and affect G/U: No Gonzalez Skin: no rashes, warm and dry Lymphatic: no cervical or axillary lymphadenopathy Results & Data Results & Data ([facility]) Vital Signs (Past 12 Hours) Vital Signs Temp Pulse Resp BP Pulse Ox 03/03/22 07:12 36.8 C 77 20 153/68 H 93 Laboratory Results 03/02/22 06:15 03/02/22 06:15 PG Care Time/CCT Total # of Minutes Spent Total Time Spent with Patient: Total time spent is greater than 50% in coordination of care (as documented) at patient's floor/unit and/or counseling patient: Coding [place] [address] Subseq Hosp Care Lvl 2 Patient Type Established Diagnoses Acute respiratory failure with hypoxia J96.[address] R93.89 Multiple myeloma C90.00
[2022-03-03 10:30] LABS: Hematocrit (blood only) 37.1 % (42-52); Hemoglobin 12.7 g/dL (14.0-18.0); Immature Granulocytes # (auto) 0.09 K/uL (0.00-0.02); Immature Granulocytes % (auto) 0.7 %; Lymphocytes % (auto) 3.8 %; Mean Corpuscular Hemoglobin 33.8 pg (25-34); Mean Corpuscular Hgb Conc 34.2 g/dL (32-36); Mean Corpuscular Volume 98.7 fL (80-100); Mean Platelet Volume 10.4 fL (7.4-10.4); Monocytes # (auto) 0.24 K/uL (0.11-0.59); Monocytes % (auto) 1.8 %; Neutrophils % (auto) 93.7 %; Platelet Count 130 K/uL (130-400); RDW Coefficient of Variation 17.1 % (11.5-14.5); Red Blood Count 3.76 M/uL (4.7-6.1); White Blood Count 13.03 K/uL (4.8-10.8)
[2022-03-03 10:49] LABS: BUN Creatinine Ratio 21.4 (10-20); Calcium 8.5 mg/dl (8.5-10.1); Creatinine Clr Calc Pharmacy 72.9 ml/min; Est GFR (African American) 86.5 ml/min; Est GFR (Non-African American) 74.6 ml/min; Potassium 3.6 mmol/L (3.5-5.1)
[2022-03-03] MEDS: DOCUSATE SODIUM/SENNA 50/8.6MG TAB PO SCH (16:10)
[2022-03-04] MEDS: PIPERACILLIN/TAZOBACTAM 3.375 GM in DEXTROSE 5% 100 ML IV SCH ×3 (02:04→23:21)
[2022-03-04] MEDS: SULFAMETHOXAZOLE/TRIMETHOPRIM DS 800/160MG TAB PO SCH ×3 (06:07→23:28)
--- NOTE | 2022-03-04 08:59 | Pulmonology Progress Note ---
Date of Service March 04, 2022 Assessment & Plan (1) Acute respiratory failure with hypoxia: (2) Abnormal chest CT: (3) Multiple myeloma: Plan: CT chest 03/01/2022 personally reviewed: Diffuse groundglass opacities appreciated bilaterally especially in the left upper and left lower lobe Right upper lobe consolidative process in the apex (improved compared to 12/2021) No significant mediastinal lymphadenopathy -- Acute hypoxic respiratory failure with diffuse groundglass opacities bilaterally Patient had this finding dating back to December 2021 As per the chart he has been being treated with fluconazole for possible cryptococcus pneumonia since approximately a month Patient did have dense consolidative process in the right upper lobe which has improved compared to December. Cryptococcal pneumonia usually gives dense consolidative process. Groundglass opacities appreciated bilaterally unlikely to be from cryptococcus Differential for it includes infectious versus noninfectious Infectious includes PJP given the patient is immunocompromised, viral infection can also present this result already on acyclovir prophylactically Noninfectious etiology includes autoimmune pneumonitis, drug-induced pneumonitis as well as diffuse alveolar hemorrhage Given patient's hemoglobin has been stable since December and is not having any significant hemoptysis I doubt this is diffuse alveolar hemorrhage PJP treatment started 03/02/2022 LDH 237 CRP 11.11, procalcitonin negative Nasal MRSA negative BNP 138 Follow-up LUIS with reflex, Fungitell Plan: Patient's metabolic encephalopathy day is new compared to yesterday The only change in therapy have made is that he was started on 40 mg twice daily of prednisone on 03/02/2022 evening. In the allergy section for the patient does say that he has hallucination on dexamethasone. I will decrease the dose of prednisone to 20 mg twice daily starting tomorrow. The patient still has issues and I will go to 20 mg on a daily basis instead. Patient's oxygen requirement has gone up and because of the mental status I was not able to get consent for conscious sedation. I did try to reach patient's but nobody picked up the phone For the time being bronchoscopy is put on hold. Continue with Bactrim as we are treating for PJP Case was discussed with Silvana Hoffmann Please note the above document was generated using voice recognition software. It may contain grammatical, syntax or spelling errors.Any formal questions or concerns about the content, text or information contained within the body of this dictation should be directly addressed to the provider for clarification. Admission and Anticipated Discharge Date Admission Date: March 01, 2022 Subjective Patient seen and examined at bedside in the [employer] [facility] just prior to perform bronchoscopy Patient seems to be confused compared to yesterday He knows where he is but he is having delusions He denied any chest pain No headache, no nausea, no vomiting. He was saturating 94-95% on 10 L oxygen mask Review of Systems Review of Systems: All systems reviewed & are unremarkable except as noted in Subjective Physical Exam Physical Exam: Constitutional: No acute distress HEENT: EOMI, PERRLA Respiratory system: Decreased air entry bilaterally, positive crackles appre ciated bilaterally more on the left side, no wheeze, no rhonchi CVS: S1-S2 positive, no murmurs or gallops Abdomen: Soft, nontender, nondistended, positive bowel sounds x4, obese Extremities: +2 pulses bilaterally radialis/ dorsalis pedis, no cyanosis, +1 pitting edema bilateral lower extremity Neuro: Awake alert oriented to self and place Psych: Normal mood and affect G/U: No Gonzalez Skin: no rashes, warm and dry Lymphatic: no cervical or axillary lymphadenopathy Results & Data Results & Data ([facility]) Vital Signs (Past 12 Hours) Vital Signs Temp Pulse Resp BP Pulse Ox 03/04/22 08:13 36.4 C L 87 22 152/82 H 90 03/03/22 22:16 36.8 C 84 22 152/75 H 91 Laboratory Results 03/03/22 09:49 03/03/22 09:49 PG Care Time/CCT Total # of Minutes Spent Total Time Spent with Patient: Total time spent is greater than 50% in coordination of care (as documented) at patient's floor/unit and/or counseling patient: Coding Level of Care Code 20612 Subseq Hosp Care Lvl 3 Diagnoses Acute respiratory failure with hypoxia J96.[address] R93.89 Multiple myeloma C90.00
[2022-03-04] MEDS: PANTOprazole 40 MG TAB PO SCH ×2 (09:00→20:32)
[2022-03-04] MEDS: FLUTICASONE/VILANTEROL 200/25MCG 14 PUFFS/INHALER INH SCH (09:00)
[2022-03-04] MEDS: ACYCLOVIR 400 MG TAB PO SCH ×2 (09:00→20:31)
[2022-03-04] MEDS: FUROSEMIDE 20 MG TAB PO SCH (09:00)
[2022-03-04] MEDS: CITALOPRAM 20 MG TAB PO SCH (09:00)
[2022-03-04] MEDS: allopurinoL 100 MG TAB PO SCH ×2 (09:00→20:32)
[2022-03-04] MEDS: DOCUSATE SODIUM/SENNA 50/8.6MG TAB PO SCH (09:00)
--- NOTE | 2022-03-04 09:18 | Hospitalist Progress Note ---
Date of Service March 04, 2022 Assessment & Plan (1) Shortness of breath: Plan: Presents with worsening shortness of breath, acute respiratory failure with hypoxia, with worsening ground-glass opacities on CT angiogram chest. Negative for PE. -->Recent admission January 2022 for acute appendicitis treated with antibiotics/no surgery Being treated for cryptococcal pneumonia with over 1 month of fluconazole proBNP negative, making heart failure not likely Hypoxic into the 80s prior to admission, requiring supplemental O2 Suspect all secondary to pneumonia-he is immunocompromised due to history of myeloma on chemotherapy Imaging with improvement in consolidative process RUL, however GGO unlikely from cryptococcus per pulm Abx: continues on Zosyn. Vanco discontinued (MRSA negative) for PNA Continue home fluconazole for cryptococcus pneumonia (completed 1 month thus far) Repeat CXR today with improvement in bilateral opacities --> currently 93% on 6L Oxymask Sputum cx heavy normal deep BCx NGTD Fungitell, Legionella, Mycoplasma all pending COVID/Flu/RSV negative Records from [facility] Pul req--> received today. Contacted Dr Manzo for review as initially patient to undergo bronchoscopy but developed increased hallucinations and change in mental status, requiring up to 10L Oxymask this morning and this was cancelled. Can try again on Wednesday per pulm Will need 2 step prior to d/c as not on O2 at home (2) Acute encephalopathy: Plan: hallucinations afternoon 03/04 after starting high dose steroids 40mg BID with listed allergy hallucinations on dexamethasone and being taken down for bronchoscopy ABG with pH 7.5 -- had been hyperventilating this afternoon attempting to leave Moved to PCU for closer monitoring CT head ordered but not obtained yet due to staffing --> not unstable/no slurred speech/focal motor deficit but confused and wanting to go home (3) Acute respiratory failure with hypoxia: Plan: Secondary to pneumonia Continue supplemental O2 to keep pulse ox greater than 90% (4) Cryptococcal pneumonitis: Plan: Continue fluconazole 400 mg p.o. once daily Holding chemotherapy for the last 2 months (5) Diarrhea: Plan: Has had 8 nonbloody loose stools in the last 24 hours prior to admission No antibiotics last month except for fluconazole stool panel PCR negative No abdominal pains-no need for further imaging at this time however noted prior admit for appendicitis tx w/ abx No further BMs at this time since admission reported 03/03 but patient did say he had 1 loose formed stool this morning not collected by nursing (6) History of pulmonary embolism: Plan: Continue Lovenox 1 mg/KG SQ bid -- held for bronch,resumed now that not happening Follows with anticoagulation clinic Previously on Coumadin but has been held while he is on fluconazole and they had been utilizing Lovenox (7) (HFpEF) heart failure with preserved ejection fraction: Plan: No acute issues, does not appear hypervolemic but BNP slightly elevated. monitor for now but consider extra dose lasix if needed (maintained on 20mg PO daily) while on steroids (now reduced) Continue blood pressure control -- given 5mg x1 now hydralazine for elevated BP (8) Light chain myeloma: Plan: Follows with oncology at [facility] Holding all home chemotherapy due to recent infection Still takes dexamethasone once a week on but using prednisone as above despite being listed as an allergy Continue suppressive acyclovir 400 mg p.o. twice daily (9) Hypokalemia: Plan: Secondary to poor p.o. intake and GI losses 3.7 on repeat, mag wnl Monitor (10) Thrombocytopenia: Plan: Improved --> stable at 125 Likely secondary to acute illness Follow CBC (11) Anemia: Plan: Mild and at baseline Follow CBC Normocytic but was macrocytic. Patient does have hx myeloma though Did check B12 given gait/memory --> LOW 162 AND IM REPLACEMENT ORDERED INPATIENT, PO AT DISCHARGE REC'D (12) BPH loc w urin obs/LUTS: Plan: No acute issues Bladder scan as needed Continue home dutasteride (13) GERD (gastroesophageal reflux disease): Plan: Continue home PPI, increased to BID while on steroids mag replaced and repeat wnl (14) Osteoporosis 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: (15) Depression: Plan: Continue home Celexa (16) Calculus of kidney: Plan: With a history of uric acid stones, follows with urology Continue home Urocit-K and allopurinol (17) B12 deficiency: Plan: checked, low replacement ordered should also help with anemia Plan: continued inpatient stay Admission and Anticipated Discharge Date Admission Date: March 01, 2022 Supervising Physician Co-Signing Physician Notes PA Supervision Note: I did not personally see or examine the patient today, but I verified all sanchez points of MARCIAL Hoffmann's assessment and plan with the following exceptions/additions: Developed significant acute encephalopathy today 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 Steroid doses were reduced by PULM. Was pulling off O2 and getting hypoxic, tachycardic. Transferred to tele and 1:1 sitter ordered. SUpportive care Subjective Patient evaluated this morning currently being taking down for bronchoscopy. States feeling fatigued still. Oxygen saturation dropped to the 70-80s this morning and was increased to 6L/Nc. At time of evaluation was increased to 10L on oxymask. Nursing stated patient told them he didn't need it earlier and was attempting to remove. Checked finger probe and peeling off, but SpO2 recorded at 90% en route to bronch. Messaged pulmonary of findings as well. Patient denied any fever/chills, continued shortness of breath. Eating/drinking last night no issues and said he had one bowel movement, looser but not like the diarrhea previously having. Was taken to bronch initially but sent back up for increased confusion. Pulmonary felt related to steroids and adjustment of those has been made. This afternoon increased confusion and stating he was at "[facility]" but stated year 2021 and that it was February. No focal deficit but moving to tele and checking CT for completeness. Attempted to call multiple times (pulmonary also attempted to call) as she was to be visiting today. No answer at this time. Allergy list does state hallucinations to dexamethasone. This evening in ICU still pulling at things, seeing things and thinking he is going home. 1:1 sitter ordered. Updated daughter Danette and on phone. Possible bronch on Wednesday per family discussion with Dr Manzo Review of Systems Review of Systems: All systems reviewed & are unremarkable except as noted in HPI & below Physical Exam Physical Exam: General: WD/WN male getting onto liter to be taken down to bronchoscopy, NAD but requiring increased oxygen to 8-10L Oxymask HEENT: normocephalic, atraumatic, mmm, trachea midline without deviation Resp: scattered crackles, no wheezing, 8L Oxymask, tachypneic, no cough CV: RRR, no m/r/g no edema L chest port, covered GI: +BS, soft, non-tender MSK: moves all extremities Neuro: NVI, CN intact grossly Psych: alert to person, time (stated February, 2021) but thought was at [facility]" This evening in ICU (moved to telemetry), agitated in bed and trying to pull clothes off, on 6L Oxymask. No acute distress noted but still having hallucinations/delusions on where he is Results & Data Results & Data ([facility]) Vital Signs (Past 12 Hours) Vital Signs Temp Pulse Resp BP Pulse Ox 03/04/22 08:13 36.4 C L 87 22 152/82 H 90 03/03/22 22:16 36.8 C 84 22 152/75 H 91 Laboratory Results 03/04/22 03/04/22 03/04/22 Range/Units 16:28 16:21 11:39 WBC (4.8-10.8) K/uL RBC (4.7-6.1) M/uL Hgb (14.0-18.0) g/dL Hct (42-52) % MCV (80-100) fL MCH (25-34) pg MCHC (32-36) g/dL RDW Std Deviation (36.4-46.3) fL RDW Coeff of Eyal (11.5-14.5) % Plt Count (130-400) K/uL MPV (7.4-10.4) fL Immature Gran % (Auto) % Neut % (Auto) % Lymph % (Auto) % [place] % (Auto) % Eos % (Auto) % Baso % (Auto) % Neut # (Auto) (1.4-6.5) K/uL Lymph # (Auto) (1.2-3.4) K/uL [place] # (Auto) (0.11-0.59) K/uL Eos # (Auto) (0-0.5) K/uL Baso # (Auto) (0-0.2) K/uL Immature Gran # (Auto) (0.00-0.02) K/uL ABG pH 7.51 H* (7.35-7.45) ABG pCO2 26 L (35-46) mmHg ABG pO2 81 (80-95) mmHg ABG HCO3 20 (19-24) mmol/L ABG O2 Saturation 97.0 H (90-95) % ABG Base Excess -1.5 (-9-1.8) mEq/L Aiden Test Pos (Pos) Barometric Pressure 730.2 mm/Hg Oxygen Given 11 Sodium (136-145) mmol/L Potassium (3.5-5.1) mmol/L Chloride (98-107) mmol/L Carbon Dioxide (21-32) mmol/L Anion Gap (3-11) BUN (6-23) mg/dl Creatinine (0.6-1.4) mg/dl Est Cr Clr Drug Dosing ml/min Est GFR ( Amer) ml/min Est GFR (Non-Af Amer) ml/min BUN/Creatinine Ratio (10-20) Glucose (70-99(Fasting)) mg/dl Calcium (8.5-10.1) mg/dl Total Bilirubin (0.2-1.0) mg/dl AST (13-39) U/L ALT (7-52) U/L Alkaline Phosphatase (34-104) U/L Ammonia 31.0 (18-72) umol/L Total Protein (6.0-8.3) gm/dl Albumin (3.4-5.0) gm/dl Globulin (2.5-4.0) gm/dl Albumin/Globulin Ratio (0.9-2) Procalcitonin 0.13 (0-0.5) ng/ml 03/04/22 03/04/22 Range/Units 09:44 09:44 WBC 14.33 H (4.8-10.8) K/uL RBC 3.96 L (4.7-6.1) M/uL Hgb 13.0 L (14.0-18.0) g/dL Hct 38.0 L (42-52) % MCV 96.0 (80-100) fL MCH 32.8 (25-34) pg MCHC 34.2 (32-36) g/dL RDW Std Deviation 61.6 H (36.4-46.3) fL RDW Coeff of Eyal 17.4 H (11.5-14.5) % Plt Count 125 L (130-400) K/uL MPV 10.5 H (7.4-10.4) fL Immature Gran % (Auto) 0.6 % Neut % (Auto) 93.7 % Lymph % (Auto) 5.0 % [place] % (Auto) 0.7 % Eos % (Auto) 0.0 % Baso % (Auto) 0.0 % Neut # (Auto) 13.43 H (1.4-6.5) K/uL Lymph # (Auto) 0.71 L (1.2-3.4) K/uL [place] # (Auto) 0.10 L (0.11-0.59) K/uL Eos # (Auto) 0.00 (0-0.5) K/uL Baso # (Auto) 0.00 (0-0.2) K/uL Immature Gran # (Auto) 0.09 H (0.00-0.02) K/uL ABG pH (7.35-7.45) ABG pCO2 (35-46) mmHg ABG pO2 (80-95) mmHg ABG HCO3 (19-24) mmol/L ABG O2 Saturation (90-95) % ABG Base Excess (-9-1.8) mEq/L Aiden Test (Pos) Barometric Pressure mm/Hg Oxygen Given Sodium 137 (136-145) mmol/L Potassium 3.7 (3.5-5.1) mmol/L Chloride 109 H (98-107) mmol/L Carbon Dioxide 18 L (21-32) mmol/L Anion Gap 10 (3-11) BUN 21 (6-23) mg/dl Creatinine 0.92 (0.6-1.4) mg/dl Est Cr Clr Drug Dosing 77.6 ml/min Est GFR ( Amer) 93.3 ml/min Est GFR (Non-Af Amer) 80.5 ml/min BUN/Creatinine Ratio 22.8 H (10-20) Glucose 86 (70-99(Fasting)) mg/dl Calcium 8.4 L (8.5-10.1) mg/dl Total Bilirubin 0.3 (0.2-1.0) mg/dl AST 16 (13-39) U/L ALT 31 (7-52) U/L Alkaline Phosphatase 57 (34-104) U/L Ammonia (18-72) umol/L Total Protein 5.7 L (6.0-8.3) gm/dl Albumin 3.3 L (3.4-5.0) gm/dl Globulin 2.4 L (2.5-4.0) gm/dl Albumin/Globulin Ratio 1.4 (0.9-2) Procalcitonin (0-0.5) ng/ml Diagnostic Findings Chest X-Ray 03/04/22 14:40 XR chest 1V portable HISTORY: 76 years-old Male f/u follow-up study in a patient with left lung airspace opacities COMPARISON: Chest radiograph and CTA chest study is from 03/01/2022 TECHNIQUE: Portable AP view of the chest FINDINGS: The cardiac silhouette is enlarged. Unchanged positioning of the left-sided [id number] catheter. Left greater than right ill-defined bilateral pulmonary opacities have mildly improved. No pneumothorax, or large pleural effusion. Degenerative changes of the shoulders and spine. Osteolytic disease of the thoracic spine is better seen on comparison CT study. IMPRESSION: 1. Left greater than right bilateral pulmonary opacities have mildly improved from the 03/01/2022 study. 2. Cardiomegaly. ACT 112: Negative or not required by law. The above report was generated using voice recognition software. It may contain grammatical, syntax or spelling errors. Electronically signed by: Salty Barros M.D. 03/04/2022 3:21 PM PG Care Time/CCT Total # of Minutes Spent Total Time Spent with Patient: Total time spent is greater than 50% in coordination of care (as documented) at patient's floor/unit and/or counseling patient: Coding Level of Care Code 78659 Subseq Hosp Care Lvl 3 Diagnoses Shortness of breath R06.02 Acute respiratory failure with hypoxia J96.01 Cryptococcal pneumonitis B45.0 Diarrhea R19.7 History of pulmonary embolism Z86.711 (HFpEF) heart failure with preserved ejection fraction I50.30 Light chain myeloma C90.00 Hypokalemia E87.6 Thrombocytopenia D69.6 Anemia D64.9 BPH loc w urin obs/LUTS N40.1 GERD (gastroesophageal reflux disease) K21.9 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 Acute encephalopathy G93.40
[2022-03-04] MEDS ORDERED: VANCOMYCIN LEVEL ONE (09:30)
[2022-03-04 10:07] LABS: Immature Granulocytes # (auto) 0.09 K/uL (0.00-0.02); Immature Granulocytes % (auto) 0.6 %; Lymphocytes # (auto) 0.71 K/uL (1.2-3.4); Mean Corpuscular Hemoglobin 32.8 pg (25-34); Mean Corpuscular Hgb Conc 34.2 g/dL (32-36); Mean Platelet Volume 10.5 fL (7.4-10.4); Monocytes % (auto) 0.7 %; Neutrophils # (auto) 13.43 K/uL (1.4-6.5); Neutrophils % (auto) 93.7 %; Platelet Count 125 K/uL (130-400); RDW Coefficient of Variation 17.4 % (11.5-14.5); RDW Standard Deviation 61.6 fL (36.4-46.3); Red Blood Count 3.96 M/uL (4.7-6.1); White Blood Count 14.33 K/uL (4.8-10.8)
[2022-03-04 10:22] LABS: Albumin Globulin Ratio 1.4 (0.9-2); Albumin Level 3.3 gm/dl (3.4-5.0); BUN Creatinine Ratio 22.8 (10-20); Bilirubin,Total 0.3 mg/dl (0.2-1.0); Calcium 8.4 mg/dl (8.5-10.1); Creatinine Clr Calc Pharmacy 77.6 ml/min; Est GFR (African American) 93.3 ml/min; Est GFR (Non-African American) 80.5 ml/min; Globulin 2.4 gm/dl (2.5-4.0); Potassium 3.7 mmol/L (3.5-5.1); Total Protein 5.7 gm/dl (6.0-8.3)
[2022-03-04 12:00] LABS: Base Excess ABG -1.5 mEq/L (-9-1.8); HCO3 ABG 20 mmol/L (19-24); PCO2 ABG 26 mmHg (35-46); PO2 ABG 81 mmHg (80-95)
[2022-03-04 12:01] LABS: Allen Test Pos (Pos)
[2022-03-04 12:04] LABS: pH ABG 7.51 (7.35-7.45)
[2022-03-04] MEDS: FLUCONAZOLE 100 MG TAB PO SCH (13:48)
[2022-03-04] MEDS: POTASSIUM CITRATE 10 MEQ TAB PO SCH ×2 (13:51→20:32)
[2022-03-04] MEDS: CYANOCOBALAMIN 1000 MCG/ML VIAL IM SCH (13:59)
[2022-03-04] MEDS: predniSONE 20 MG TAB PO SCH (14:09)
--- NOTE | 2022-03-04 15:24 | XRay Report ---
XR chest 1V portable HISTORY: 76 years-old Male f/u follow-up study in a patient with left lung airspace opacities COMPARISON: Chest radiograph and CTA chest study is from 03/01/2022 TECHNIQUE: Portable AP view of the chest FINDINGS: The cardiac silhouette is enlarged. Unchanged positioning of the left-sided [id number]-m-[id number] catheter. L eft greater than right ill-defined bilateral pulmonary opacities have mildly improved. No pneumothora x, or large pleural effusion. Degenerative changes of the shoulders and spine. Osteolytic disease of the thoracic spine is better seen on comparison CT study. IMPRESSION: 1. Left greater than right bilateral pulmonary opacities have mildly improved from the 03/01/2022 stud y. 2. Cardiomegaly. ACT 112: Negative or not required by law. The above report was generated using voice recognition software. It may contain grammatical, syntax o r spelling errors. Electronically signed by: Salty Barros M.D. 03/04/2022 3:21 PM
[2022-03-04] MEDS: ENOXAPARIN 100 MG/1ML SYR SQ SCH (18:10)
[2022-03-04] MEDS ORDERED: hydrALAZINE HCL 20 MG/ML VIAL IV ONE (18:32)
--- NOTE | 2022-03-04 20:28 | CT Scan Report ---
HEAD CT NONCONTRAST CT DOSE: 1311.06 mGy.cm HISTORY: confusion TECHNIQUE: Multiaxial CT images of the head were performed without the use of intravenous contrast. A utomated exposure control was utilized for this study. A dose lowering technique was utilized adheri ng to the principles of ALARA. Comparison: Head CT 12/02/2019. Findings: The paranasal sinuses and mastoid air cells are clear. The calvarium and skull base are int act. There is no mass, hematoma, midline shift, acute infarct. White matter hypodensity is nonspecifi c but suggestive of microvascular ischemic change. The ventricles and sulci demonstrate mild age-rela paolo involutional changes. Motion artifact. Impression: Motion artifact. No definite acute intracranial abnormality. ACT 112: Negative or not required by law. Electronically signed by: Ming Rey M.D. 03/04/2022 8:26 PM
[2022-03-04] MEDS: MELATONIN 3 MG TAB PO SCH (20:31)
[2022-03-05 05:51] LABS: Eosinophils # (auto) 0.01 K/uL (0-0.5); Eosinophils % (auto) 0.1 %; Hematocrit (blood only) 37.4 % (42-52); Hemoglobin 12.8 g/dL (14.0-18.0); Immature Granulocytes % (auto) 0.8 %; Lymphocytes # (auto) 0.27 K/uL (1.2-3.4); Lymphocytes % (auto) 2.3 %; Mean Corpuscular Hemoglobin 33.2 pg (25-34); Mean Corpuscular Hgb Conc 34.2 g/dL (32-36); Mean Corpuscular Volume 96.9 fL (80-100); Mean Platelet Volume 10.8 fL (7.4-10.4); Monocytes # (auto) 0.14 K/uL (0.11-0.59); Monocytes % (auto) 1.2 %; Neutrophils # (auto) 11.26 K/uL (1.4-6.5); Neutrophils % (auto) 95.6 %; Platelet Count 110 K/uL (130-400); RDW Coefficient of Variation 17.5 % (11.5-14.5); RDW Standard Deviation 62.4 fL (36.4-46.3); Red Blood Count 3.86 M/uL (4.7-6.1); White Blood Count 11.78 K/uL (4.8-10.8)
[2022-03-05] MEDS: PIPERACILLIN/TAZOBACTAM 3.375 GM in DEXTROSE 5% 100 ML IV SCH ×2 (05:58→13:45)
[2022-03-05 06:19] LABS: Albumin Globulin Ratio 1.3 (0.9-2); Albumin Level 3.2 gm/dl (3.4-5.0); BUN Creatinine Ratio 18.9 (10-20); Bilirubin,Total 0.6 mg/dl (0.2-1.0); Calcium 8.3 mg/dl (8.5-10.1); Creatinine Clr Calc Pharmacy 72.1 ml/min; Est GFR (African American) 95.8 ml/min; Est GFR (Non-African American) 82.7 ml/min; Globulin 2.4 gm/dl (2.5-4.0); Magnesium 2.2 mg/dl (1.7-2.4); Potassium 3.6 mmol/L (3.5-5.1); Total Protein 5.6 gm/dl (6.0-8.3)
--- NOTE | 2022-03-05 07:34 | Hospitalist Progress Note ---
Date of Service March 05, 2022 Assessment & Plan (1) Acute encephalopathy: Plan: Patient presented with worsening SOB, acute respiratory failure with hypoxia, and worsening ground-glass opacities on CT angiogram chest. Negative for PE. Hallucinations afternoon 03/04 after starting high dose steroids 40mg BID with listed allergy hallucinations on dexamethasone and being taken down for bronchoscopy and moved to telemetry 03/04 ABG with pH 7.5 -- had been hyperventilating and continues to pull off his oxygen. Repeat abg still alkalotic Ammonia wnl UA without evidence for infection CT head without evidence for acute CVA ABG 7.5, pCO2 22, HCO3 18 -->Lactic checked wnl. CO2 on BMP 20 . pt hyperventilating at times/getting worked up and attempting to leave, no abdominal pain or nausea reported and tolerated food. 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 (daughter reported similar hallucinations in past with steroid use) in addition to insomnia Discontinued prednisone (last dose 20:18 03/03) Wanting to avoid antipsychotics given prolonged QTC on admission (improved on repeat this morning) Will order ambien 5mg for tonight, consider haldol if needed but will hold off for now Switched to Bactrim IV to prevent missing doses for suspected PJP pneumonia -- cryptococcus consolidative process improved to RUL -- see below Continue to monitor (2) Shortness of breath: Plan: Reports about the same, continues with hallucinations/hyperventilation 03/05 -->Recent admission January 2022 for acute appendicitis treated with antibiotics/no surgery Being treated for cryptococcal pneumonia with over 1 month of fluconazole proBNP negative, making heart failure not likely Hypoxic into the 80s prior to admission, requiring supplemental O2 Suspect all secondary to pneumonia-he is immunocompromised due to history of myeloma on chemotherapy Imaging with improvement in consolidative process RUL, however GGO unlikely from cryptococcus per pulm Abx: Zosyn, fluconazole (has been on >1 month), Bactrim (now IV) Sputum cx heavy normal deep BCx NGTD COVID/flu/RSV negative Fungitell, Legionella, Mycoplasma all pending Currently 10L Oxymask to maintain sat (was 15L this morning) -- titrate to maintain, consider NC however patient mouth breather need 2 step prior to dc/ (3) Acute respiratory failure with hypoxia: Plan: Secondary to pneumonia Continue supplemental O2 to keep pulse ox greater than 90% ABG remains unchanged -- see above (4) Cryptococcal pneumonitis: Plan: Continue fluconazole 400 mg p.o. once daily Holding chemotherapy for the last 2 months (5) Diarrhea: Plan: Has had 8 nonbloody loose stools in the last 24 hours prior to admission No antibiotics last month except for fluconazole stool panel PCR negative No abdominal pains-no need for further imaging at this time however noted prior admit for appendicitis tx w/ abx No further BMs at this time since admission reported 03/03 but patient did say he had 1 loose formed stool this morning 03/04, small BM morning 03/05 not collected by nursing (6) History of pulmonary embolism: Plan: Lovenox resumed as no bronch given encephalopathy Follows with anticoagulation clinic Previously on Coumadin but has been held while he is on fluconazole and they had been utilizing Lovenox (7) (HFpEF) heart failure with preserved ejection fraction: Plan: No acute issues, does not appear hypervolemic but BNP slightly elevated CXR with improvement, no increase in LE edema remains on lasix 20mg daily (missed dose am 03/04 as being taken to bronch) but had been NPO most of the day Monitor (8) Light chain myeloma: Plan: Follows with oncology at [facility] Holding all home chemotherapy due to recent infection Still takes dexamethasone once a week on but using prednisone as above despite being listed as an allergy --d/c for now given above Continue suppressive acyclovir 400 mg p.o. twice daily (9) Hypokalemia: Plan: Secondary to poor p.o. intake and GI losses 3.6 on repeat, mag wnl Monitor (10) Thrombocytopenia: Plan: Stable Likely secondary to acute illness Follow CBC (11) Anemia: Plan: Mild and at baseline Follow CBC Normocytic but was macrocytic. Patient does have hx myeloma though Did check B12 given gait/memory --> LOW 162 AND IM REPLACEMENT ORDERED INPATIENT, PO AT DISCHARGE REC'D (12) BPH loc w urin obs/LUTS: Plan: No acute issues Bladder scan as needed Continue home dutasteride (13) GERD (gastroesophageal reflux disease): Plan: Continue home PPI, increased to BID while on steroids mag replaced and repeat wnl (14) Osteoporosis 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: (15) Depression: Plan: Continue home Celexa (16) Calculus of kidney: Plan: With a history of uric acid stones, follows with urology Continue home Urocit-K and allopurinol (17) B12 deficiency: Plan: checked, low replacement ordered should also help with anemia Plan: continued inpatient stay Admission and Anticipated Discharge Date Admission Date: March 01, 2022 Supervising Physician Co-Signing Physician Notes MARCIAL Supervision Note: I did not personally see or examine the patient today, but I verified all sanchez points of MARCIAL Hoffmann's assessment and plan with the following exceptions/additions: None Subjective Seen this morning. Confused by cooperative with exam. Complaining of having to urinate the morning. Bladder scan >245cc but then voided and states feeling little better. No abdominal pain. Will check UA. 15L --> 10L sats 92%. Going to attempt to switch to NC. Said he hadn't eaten in past two days. Got PO bactrim this morning (dissolved some in mouth). Starting IV this afternoon. Drank a ton of water this morning. States he is also hungry. Discontinued prednisone for now given likely confusion/steroid induced. No fever/chills, denies chest pain/shortness of breath but is breathing fast/hyperventilating. Encouraged to take slow deep breaths. Patient cooperative while instructing but then once stops, continues to have increased RR. ABG this morning with elevated pH. Cough noted. Not productive. Pulmonary following -- feels steroid related and rec sleep, we will order ambien for tonight. Updated daughter Danette. Review of Systems Review of Systems: All systems reviewed & are unremarkable except as noted in HPI & below Physical Exam Physical Exam: General: no acute distress, but hallucinating and attempting to undress himself HEENT: head atraumatic, normocephalic, pupils equa/reactive, slightly dry mm, trachea midline irritation under eyes from Oxymask rubbing Resp: decreased throughout, scattered crackles L>R, no wheezing, on 10L Oxymask with Spo2 92% CV: tachycardic 110bpm, regular, no m/r/g appreciated, no calf edema GI:+BS, soft, slight discomfort with palpation suprapubic (but stated felt better than before) : no munoz MSK/Neuro: moving all extremities, no focal motor deficit, awake and alert to person but confused, participates in exam but needing frequent orientation and direction Psych: altered mental status, alert to person, year, occasionally time but today said it was November and he was in a cabin, +visual hallucinations, fine tremor Results & Data Results & Data ([facility]) Vital Signs (Past 12 Hours) Vital Signs Temp Pulse Pulse Resp BP BP BP 03/05/22 07:06 37.2 C 122 H 34 H 151/99 H 03/05/22 05:30 03/05/22 03:48 37 C 108 H 32 H 151/79 H 03/05/22 00:19 105 H 03/05/22 00:06 37.1 C 115 H 26 H 140/87 03/04/22 20:00 116 H 35 H 03/04/22 19:51 121 H 18 143/82 H 03/04/22 19:50 37 C 115 H 26 H 145/94 H 03/04/22 19:43 37 C 115 H 31 H 148/97 H Pulse Ox 03/05/22 07:06 94 03/05/22 05:30 93 03/05/22 03:48 94 03/05/22 00:19 03/05/22 00:06 94 03/04/22 20:00 89 L 03/04/22 19:51 95 03/04/22 19:50 94 03/04/22 19:43 92 Laboratory Results 03/05/22 03/05/22 03/04/22 Range/Units 05:32 05:32 22:09 WBC 11.78 H (4.8-10.8) K/uL RBC 3.86 L (4.7-6.1) M/uL Hgb 12.8 L (14.0-18.0) g/dL Hct 37.4 L (42-52) % MCV 96.9 (80-100) fL MCH 33.2 (25-34) pg MCHC 34.2 (32-36) g/dL RDW Std Deviation 62.4 H (36.4-46.3) fL RDW Coeff of Eyal 17.5 H (11.5-14.5) % Plt Count 110 L (130-400) K/uL MPV 10.8 H (7.4-10.4) fL Immature Gran % (Auto) 0.8 % Neut % (Auto) 95.6 % Lymph % (Auto) 2.3 % Seward % (Auto) 1.2 % Eos % (Auto) 0.1 % Baso % (Auto) 0.0 % Neut # (Auto) 11.26 H (1.4-6.5) K/uL Lymph # (Auto) 0.27 L (1.2-3.4) K/uL [place]ard # (Auto) 0.14 (0.11-0.59) K/uL Eos # (Auto) 0.01 (0-0.5) K/uL Baso # (Auto) 0.00 (0-0.2) K/uL Immature Gran # (Auto) 0.10 H (0.00-0.02) K/uL ABG pH (7.35-7.45) ABG pCO2 (35-46) mmHg ABG pO2 (80-95) mmHg ABG HCO3 (19-24) mmol/L ABG O2 Saturation (90-95) % ABG Base Excess (-9-1.8) mEq/L Aiden Test (Pos) Barometric Pressure mm/Hg Oxygen Given Sodium 135 L (136-145) mmol/L Potassium 3.6 (3.5-5.1) mmol/L Chloride 105 (98-107) mmol/L Carbon Dioxide 20 L (21-32) mmol/L Anion Gap 10 (3-11) BUN 17 (6-23) mg/dl Creatinine 0.90 (0.6-1.4) mg/dl Est Cr Clr Drug Dosing 72.1 ml/min Est GFR ( Amer) 95.8 ml/min Est GFR (Non-Af Amer) 82.7 ml/min BUN/Creatinine Ratio 18.9 (10-20) Glucose 89 (70-99(Fasting)) mg/dl POC Glucose 108 H (70-99) mg/dl Lactate (0.4-2.0) mmol/L Calcium 8.3 L (8.5-10.1) mg/dl Magnesium 2.2 (1.7-2.4) mg/dl Total Bilirubin 0.6 (0.2-1.0) mg/dl AST 27 (13-39) U/L ALT 42 (7-52) U/L Alkaline Phosphatase 61 (34-104) U/L Ammonia (18-72) umol/L Total Protein 5.6 L (6.0-8.3) gm/dl Albumin 3.2 L (3.4-5.0) gm/dl Globulin 2.4 L (2.5-4.0) gm/dl Albumin/Globulin Ratio 1.3 (0.9-2) Procalcitonin (0-0.5) ng/ml 03/04/22 03/04/22 03/04/22 Range/Units 19:58 16:28 16:21 WBC (4.8-10.8) K/uL RBC (4.7-6.1) M/uL Hgb (14.0-18.0) g/dL Hct (42-52) % MCV (80-100) fL MCH (25-34) pg MCHC (32-36) g/dL RDW Std Deviation (36.4-46.3) fL RDW Coeff of Eyal (11.5-14.5) % Plt Count (130-400) K/uL MPV (7.4-10.4) fL Immature Gran % (Auto) % Neut % (Auto) % Lymph % (Auto) % Seward % (Auto) % Eos % (Auto) % Baso % (Auto) % Neut # (Auto) (1.4-6.5) K/uL Lymph # (Auto) (1.2-3.4) K/uL Seward # (Auto) (0.11-0.59) K/uL Eos # (Auto) (0-0.5) K/uL Baso # (Auto) (0-0.2) K/uL Immature Gran # (Auto) (0.00-0.02) K/uL ABG pH (7.35-7.45) ABG pCO2 (35-46) mmHg ABG pO2 (80-95) mmHg ABG HCO3 (19-24) mmol/L ABG O2 Saturation (90-95) % ABG Base Excess (-9-1.8) mEq/L Aiden Test (Pos) Barometric Pressure mm/Hg Oxygen Given Sodium (136-145) mmol/L Potassium (3.5-5.1) mmol/L Chloride (98-107) mmol/L Carbon Dioxide (21-32) mmol/L Anion Gap (3-11) BUN (6-23) mg/dl Creatinine (0.6-1.4) mg/dl Est Cr Clr Drug Dosing ml/min Est GFR ( Amer) ml/min Est GFR (Non-Af Amer) ml/min BUN/Creatinine Ratio (10-20) Glucose (70-99(Fasting)) mg/dl POC Glucose (70-99) mg/dl Lactate 1.8 (0.4-2.0) mmol/L Calcium (8.5-10.1) mg/dl Magnesium (1.7-2.4) mg/dl Total Bilirubin (0.2-1.0) mg/dl AST (13-39) U/L ALT (7-52) U/L Alkaline Phosphatase (34-104) U/L Ammonia 31.0 (18-72) umol/L Total Protein (6.0-8.3) gm/dl Albumin (3.4-5.0) gm/dl Globulin (2.5-4.0) gm/dl Albumin/Globulin Ratio (0.9-2) Procalcitonin 0.13 (0-0.5) ng/ml 03/04/22 03/04/22 03/04/22 Range/Units 11:39 09:44 09:44 WBC 14.33 H (4.8-10.8) K/uL RBC 3.96 L (4.7-6.1) M/uL Hgb 13.0 L (14.0-18.0) g/dL Hct 38.0 L (42-52) % MCV 96.0 (80-100) fL MCH 32.8 (25-34) pg MCHC 34.2 (32-36) g/dL RDW Std Deviation 61.6 H (36.4-46.3) fL RDW Coeff of Eyal 17.4 H (11.5-14.5) % Plt Count 125 L (130-400) K/uL MPV 10.5 H (7.4-10.4) fL Immature Gran % (Auto) 0.6 % Neut % (Auto) 93.7 % Lymph % (Auto) 5.0 % Seward % (Auto) 0.7 % Eos % (Auto) 0.0 % Baso % (Auto) 0.0 % Neut # (Auto) 13.43 H (1.4-6.5) K/uL Lymph # (Auto) 0.71 L (1.2-3.4) K/uL [place] # (Auto) 0.10 L (0.11-0.59) K/uL Eos # (Auto) 0.00 (0-0.5) K/uL Baso # (Auto) 0.00 (0-0.2) K/uL Immature Gran # (Auto) 0.09 H (0.00-0.02) K/uL ABG pH 7.51 H* (7.35-7.45) ABG pCO2 26 L (35-46) mmHg ABG pO2 81 (80-95) mmHg ABG HCO3 20 (19-24) mmol/L ABG O2 Saturation 97.0 H (90-95) % ABG Base Excess -1.5 (-9-1.8) mEq/L Aiden Test Pos (Pos) Barometric Pressure 730.2 mm/Hg Oxygen Given 11 Sodium 137 (136-145) mmol/L Potassium 3.7 (3.5-5.1) mmol/L Chloride 109 H (98-107) mmol/L Carbon Dioxide 18 L (21-32) mmol/L Anion Gap 10 (3-11) BUN 21 (6-23) mg/dl Creatinine 0.92 (0.6-1.4) mg/dl Est Cr Clr Drug Dosing 77.6 ml/min Est GFR ( Amer) 93.3 ml/min Est GFR (Non-Af Amer) 80.5 ml/min BUN/Creatinine Ratio 22.8 H (10-20) Glucose 86 (70-99(Fasting)) mg/dl POC Glucose (70-99) mg/dl Lactate (0.4-2.0) mmol/L Calcium 8.4 L (8.5-10.1) mg/dl Magnesium (1.7-2.4) mg/dl Total Bilirubin 0.3 (0.2-1.0) mg/dl AST 16 (13-39) U/L ALT 31 (7-52) U/L Alkaline Phosphatase 57 (34-104) U/L Ammonia (18-72) umol/L Total Protein 5.7 L (6.0-8.3) gm/dl Albumin 3.3 L (3.4-5.0) gm/dl Globulin 2.4 L (2.5-4.0) gm/dl Albumin/Globulin Ratio 1.4 (0.9-2) Procalcitonin (0-0.5) ng/ml Diagnostic Findings Head CT 03/04/22 14:[address] DOSE: 1311.06 mGy.cm HISTORY: confusion TECHNIQUE: Multiaxial CT images of the head were performed without the use of intravenous contrast. Automated exposure control was utilized for this study. A dose lowering technique was utilized adhering to the principles of ALARA. Comparison: Head CT 12/02/2019. Findings: The paranasal sinuses and mastoid air cells are clear. The calvarium and skull base are intact. There is no mass, hematoma, midline shift, acute infarct. White matter hypodensity is nonspecific but suggestive of microvascular ischemic change. The ventricles and sulci demonstrate mild age-related involutional changes. Motion artifact. Impression: Motion artifact. No definite acute intracranial abnormality. ACT 112: Negative or not required by law. Electronically signed by: Ming Rey M.D. 03/04/2022 8:26 PM Chest X-Ray 03/04/22 14:40 XR chest 1V portable HISTORY: 76 years-old Male f/u follow-up study in a patient with left lung airspace opacities COMPARISON: Chest radiograph and CTA chest study is from 03/01/2022 TECHNIQUE: Portable AP view of the chest FINDINGS: The cardiac silhouette is enlarged. Unchanged positioning of the left-sided Ploxqh-h-Ggyj catheter. Left greater than right ill-defined bilateral pulmonary opacities have mildly improved. No pneumothorax, or large pleural effusion. Degenerative changes of the shoulders and spine. Osteolytic disease of the thoracic spine is better seen on comparison CT study. IMPRESSION: 1. Left greater than right bilateral pulmonary opacities have mildly improved from the 03/01/2022 study. 2. Cardiomegaly. ACT 112: Negative or not required by law. The above report was generated using voice recognition software. It may contain grammatical, syntax or spelling errors. Electronically signed by: Salty Barros M.D. 03/04/2022 3:21 PM PG Care Time/CCT Total # of Minutes Spent Total Time Spent with Patient: Total time spent is greater than 50% in coordination of care (as documented) at patient's floor/unit and/or counseling patient: Coding Level of Care Code 81785 Subseq Hosp Care Lvl 3 Diagnoses Shortness of breath R06.02 Acute encephalopathy G93.40 Acute respiratory failure with hypoxia J96.01 Cryptococcal pneumonitis B45.0 Diarrhea R19.7 History of pulmonary embolism Z86.711 (HFpEF) heart failure with preserved ejection fraction I50.30 Light chain myeloma C90.00 Hypokalemia E87.6 Thrombocytopenia D69.6 Anemia D64.9 BPH loc w urin obs/LUTS N40.1 GERD (gastroesophageal reflux disease) K21.9 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
[2022-03-05] MEDS: ENOXAPARIN 100 MG/1ML SYR SQ SCH ×2 (07:53→20:20)
[2022-03-05] MEDS: SULFAMETHOXAZOLE/TRIMETHOPRIM DS 800/160MG TAB PO SCH (08:33)
[2022-03-05 08:40] LABS: iSTAT Allen Test Pass; iSTAT Art Bld Gas pCO2 Correct 22 mmHg (35-46); iSTAT Art Bld Gas pH Corrected 7.525 (7.35-7.45); iSTAT Arterial Blood Gas HCO3 18 meg/L (19-24); iSTAT Arterial Blood Gas pCO2 22 mmHg (35-46); iSTAT Arterial Blood Gas pH 7.53 (7.35-7.45); iSTAT Arterial Blood Gas pO2 58 mmHg (80-95); iSTAT Arterial Blood Gas pO2 C 59; iSTAT Carbon Dioxide 19 mmol/L (24-31); iSTAT Hematocrit 34 % (42-52); iSTAT Hemoglobin 11.6 g/dl (14.0-18.0); iSTAT Potassium 3.6 mmol/L (3.3-5.0); iSTAT Site L Radial; iSTAT Sodium 133 mmol/L (135-144)
[2022-03-05] MEDS ORDERED: dexAMETHasone 4 MG TAB PO SCH (09:00)
[2022-03-05] MEDS ORDERED: predniSONE 20 MG TAB PO SCH (09:00)
--- NOTE | 2022-03-05 09:02 | Pulmonology Progress Note ---
Date of Service March 05, 2022 Assessment & Plan (1) Acute respiratory failure with hypoxia: (2) Abnormal chest CT: (3) Multiple myeloma: Plan: CT chest 03/01/2022 personally reviewed: Diffuse groundglass opacities appreciated bilaterally especially in the left upper and left lower lobe Right upper lobe consolidative process in the apex (improved compared to 12/2021) No significant mediastinal lymphadenopathy -- Acute hypoxic respiratory failure with diffuse groundglass opacities bilaterally Patient had this finding dating back to December 2021 As per the chart he has been being treated with fluconazole for possible cryptococcus pneumonia since approximately a month Patient did have dense consolidative process in the right upper lobe which has improved compared to December. Cryptococcal pneumonia usually gives dense consolidative process. Groundglass opacities appreciated bilaterally unlikely to be from cryptococcus Differential for it includes infectious versus noninfectious Infectious includes PJP given the patient is immunocompromised, viral infection can also present this result already on acyclovir prophylactically Noninfectious etiology includes autoimmune pneumonitis, drug-induced pneumonitis as well as diffuse alveolar hemorrhage Given patient's hemoglobin has been stable since December and is not having any significant hemoptysis I doubt this is diffuse alveolar hemorrhage PJP treatment started 03/02/2022 LDH 237 CRP 11.11, procalcitonin negative Nasal MRSA negative BNP 138 Follow-up LUIS with reflex, Fungitell Plan: Last dose of prednisone for the patient was 03/03/2022. CT head 03/04/2022 was negative Given the significant side effects/agitation from prednisone I will discontinue prednisone totally. Bactrim has been changed to IV. Patient's QTC is very prolonged. Try to avoid haloperidol. If the patient gets really restless then consideration for very low-dose benzodiazepine could be considered He might need BiPAP if any benzodiazepines are used For the time being bronchoscopy is put on hold. Continue with Bactrim as we are treating for PJP Case was discussed with Dr. Shepard as well as patient's Please note the above document was generated using voice recognition software. It may contain grammatical, syntax or spelling errors.Any formal questions or concerns about the content, text or information contained within the body of this dictation should be directly addressed to the provider for clarification. Admission and Anticipated Discharge Date Admission Date: March 01, 2022 Subjective Patient seen and examined at bedside. No acute distress Patient was little bit restless. He is still confused Has been afebrile. Able to answer simple questions. Denies any headache, no chest pain, no belly pain. He was saturating 93-94% on 15 L oxygen mask. I was able to go down to 10 L and he was still saturating 92-93% Review of Systems Review of Systems: All systems reviewed & are unremarkable except as noted in Subjective Physical Exam Physical Exam: Constitutional: No acute distress HEENT: EOMI, PERRLA Respiratory system: Decreased air entry bilaterally, positive crackles appreciated bilaterally more on the left side, no wheeze, no rhonchi CVS: S1-S2 positive, no murmurs or gallops Abdomen: Soft, nontender, nondistended, positive bowel sounds x4, obese Extremities: +2 pulses bilaterally radialis/ dorsalis pedis, no cyanosis, +1 pitting edema bilateral lower extremity Neuro: Awake alert oriented to self Psych: Normal mood and affect G/U: No Gonzalez Skin: no rashes, warm and dry Lymphatic: no cervical or axillary lymphadenopathy Results & Data Results & Data ([facility]) Vital Signs (Past 12 Hours) Vital Signs Temp Pulse Pulse Resp BP BP Pulse Ox 03/05/22 07:06 37.2 C 122 H 34 H 151/99 H 94 03/05/22 05:30 93 03/05/22 03:48 37 C 108 H 32 H 151/79 H 94 03/05/22 00:19 105 H 03/05/22 00:06 37.1 C 115 H 26 H 140/87 94 Laboratory Results 03/05/22 05:32 03/05/22 05:32 PG Care Time/CCT Total # of Minutes Spent Total Time Spent with Patient: Total time spent is greater than 50% in coordination of care (as documented) at patient's floor/unit and/or counseling patient: Coding Level of Care Code 45627 Subseq Hosp Care Lvl 3 Diagnoses Acute respiratory failure with hypoxia J96.[address] R93.89 Multiple myeloma C90.00
[2022-03-05] MEDS: POTASSIUM CITRATE 10 MEQ TAB PO SCH ×2 (09:04→20:22)
[2022-03-05] MEDS: PANTOprazole 40 MG TAB PO SCH ×2 (09:04→20:21)
[2022-03-05] MEDS: allopurinoL 100 MG TAB PO SCH ×2 (09:05→20:20)
[2022-03-05] MEDS: FLUCONAZOLE 100 MG TAB PO SCH (09:05)
[2022-03-05] MEDS: DOCUSATE SODIUM/SENNA 50/8.6MG TAB PO SCH (09:05)
[2022-03-05] MEDS: ACYCLOVIR 400 MG TAB PO SCH ×2 (09:05→20:19)
[2022-03-05] MEDS: CITALOPRAM 20 MG TAB PO SCH (09:05)
[2022-03-05] MEDS: FUROSEMIDE 20 MG TAB PO SCH (09:05)
[2022-03-05] MEDS: CYANOCOBALAMIN 1000 MCG/ML VIAL IM SCH (09:07)
[2022-03-05] MEDS: FLUTICASONE/VILANTEROL 200/25MCG 14 PUFFS/INHALER INH SCH (09:28)
[2022-03-05 11:17] LABS: Appearance Urine Turbid (Clear); Bacteria Urine Automated Negative (Negative); Bilirubin Urine Negative (Negative); Blood Urine 2+ (Negative); Color Urine Yellow; Glucose Urine UA Negative (Negative); Ketones Urine Trace (Negative); Leukocyte Esterase Urine Negative (Negative); Nitrite Urine Negative (Negative); Protein Urine Negative (Negative); RBC Urine Automated 0-4 /hpf (0-4); Specific Gravity Urine 1.026 (1.000-1.030); Urobilinogen Urine Negative (Negative); pH Urine 5.5 (4.5-7.5)
[2022-03-05 11:27] LABS: Amorphous Sediment Urine Present (None Prsent)
[2022-03-05] MEDS: SULFA/TRIMETH 80/16MG/ML 320 MG in DEXTROSE 5% 500 ML IV SCH ×2 (13:46→23:59)
--- NOTE | 2022-03-05 14:25 | Electrocardiogram Report ---
Test Reason : Blood Pressure : / mmHG Vent. Rate : 110 BPM Atrial Rate : 110 BPM P-R Int : 000 ms QRS Dur : 080 ms QT Int : 478 ms P-R-T Axes : 000 -33 015 degrees QTc Int : 646 ms Poor data quality, interpretation may be adversely affected Sinus rhythm with frequent Premature atrial complexes Left anterior fascicular block Left ventricular hypertrophy Abnormal ECG When compared with ECG of 01-MAR-2022 15:13, No significant change Confirmed by Aron Penaloza ([id number]) on 03/05/2022 2:25:31 PM Referred By: REFERRED SELF Confirmed By:Aron Penaloza
[2022-03-05] MEDS: MELATONIN 3 MG TAB PO SCH (20:21)
[2022-03-05] MEDS ORDERED: ZOLPIDEM TARTRATE 5 MG TAB PO SCH (21:00)
[2022-03-05] MEDS ORDERED: HALOPERIDOL LACTATE 5 MG/ML 1 ML VIAL IM STA (22:12)
[2022-03-05] MEDS ORDERED: HALOPERIDOL LACTATE 5 MG/ML 1 ML VIAL ONE (22:15)
[2022-03-05] MEDS ORDERED: LORazepam 2 MG/1 ML VIAL IV STA (23:23)
[2022-03-05] MEDS ORDERED: LORazepam 2 MG/1 ML VIAL ONE (23:24)
[2022-03-05 23:36] LABS: Eosinophils # (auto) 0.01 K/uL (0-0.5); Eosinophils % (auto) 0.1 %; Hematocrit (blood only) 37.3 % (42-52); Hemoglobin 12.8 g/dL (14.0-18.0); Immature Granulocytes # (auto) 0.09 K/uL (0.00-0.02); Immature Granulocytes % (auto) 0.7 %; Lymphocytes # (auto) 0.34 K/uL (1.2-3.4); Lymphocytes % (auto) 2.7 %; Mean Corpuscular Volume 96.1 fL (80-100); Mean Platelet Volume 9.9 fL (7.4-10.4); Monocytes # (auto) 0.11 K/uL (0.11-0.59); Monocytes % (auto) 0.9 %; Neutrophils # (auto) 11.95 K/uL (1.4-6.5); Neutrophils % (auto) 95.6 %; Platelet Count 105 K/uL (130-400); RDW Coefficient of Variation 17.7 % (11.5-14.5); RDW Standard Deviation 62.6 fL (36.4-46.3); Red Blood Count 3.88 M/uL (4.7-6.1)
[2022-03-05 23:37] LABS: Mean Corpuscular Hgb Conc 34.3 g/dL (32-36)
[2022-03-06 00:06] LABS: Albumin Globulin Ratio 1.3 (0.9-2); Albumin Level 3.2 gm/dl (3.4-5.0); BUN Creatinine Ratio 14.3 (10-20); Bilirubin,Total 0.5 mg/dl (0.2-1.0); Calcium 8.3 mg/dl (8.5-10.1); Creatinine Clr Calc Pharmacy 71.3 ml/min; Est GFR (African American) 94.5 ml/min; Est GFR (Non-African American) 81.6 ml/min; Globulin 2.5 gm/dl (2.5-4.0); Magnesium 2.1 mg/dl (1.7-2.4); Phosphorus 2.7 mg/dl (2.5-4.9); Potassium 3.6 mmol/L (3.5-5.1); Total Protein 5.7 gm/dl (6.0-8.3)
[2022-03-06 00:10] LABS: Troponin I High Sensitivity 119.5 pg/ml (0-20)
[2022-03-06] MEDS ORDERED: dilTIAZem HCl 5 MG/ML 5 ML VIAL IV STA (00:26)
[2022-03-06] MEDS ORDERED: STAT IV Infusion **Titration per Protocol STA ×2 (00:26→09:24)
[2022-03-06] MEDS ORDERED: dilTIAZem HCL 125 MG in DEXTROSE 5% 100 ML IV SCH (00:30)
--- NOTE | 2022-03-06 00:36 | Communication Note ---
Date of Service: March 06, 2022 Patient's HR has been steadily increasing over last 24 hours - has been in 140s- 160s over last several hours. Of note patient has been agitated this evening, has been noticeably shaky, and has been trying to leave his bed and take out IVs. On discussion with patient he is only alert and oriented to self but does deny any alcohol use for "35 years", although per nursing, he has been asking for alcohol throughout the day. EKG was obtained which has a read of a-fib with RVR although per my interpretation appears to be more consistent with sinus tachycardia with PVCs - QTc is 493. On tele monitor appears to be relatively regular with noticeable p- waves. Otherwise, VS have been stable: still satting well on 10L/min oxymask and BP is 110s-120s/70s-80s. Ordered CBC/CMP/Mg/Phos which was unremarkable. Ordered hsTroponin which increased from 103 to 120 over last 6 hours - suspect this is due to significant tachycardia. Do not suspect alcohol withdrawal as there is no previous mention of alcohol abuse in the chart. - patient was given Haldol 5mg IM x1 earlier in the evening for agitation - will give Ativan 1mg IV x1 now as patient is significantly agitated and shaky - will start Dilt 10mg IV x1 and then start gtt for significant tachycardia
[2022-03-06] MEDS: ACYCLOVIR 400 MG TAB PO SCH ×3 (02:00→20:25)
[2022-03-06] MEDS: allopurinoL 100 MG TAB PO SCH ×3 (02:00→20:25)
[2022-03-06] MEDS: MELATONIN 3 MG TAB PO SCH ×2 (02:01→20:25)
[2022-03-06] MEDS: PANTOprazole 40 MG TAB PO SCH ×2 (02:01→08:44)
[2022-03-06] MEDS ORDERED: LORazepam 2 MG/1 ML VIAL IV STA (04:02)
[2022-03-06] MEDS: PIPERACILLIN/TAZOBACTAM 3.375 GM in DEXTROSE 5% 100 ML IV SCH ×4 (05:15→22:14)
[2022-03-06] MEDS: SULFA/TRIMETH 80/16MG/ML 320 MG in DEXTROSE 5% 500 ML IV SCH (05:16)
[2022-03-06 06:10] LABS: Eosinophils # (auto) 0.01 K/uL (0-0.5); Eosinophils % (auto) 0.1 %; Hematocrit (blood only) 33.1 % (42-52); Hemoglobin 11.3 g/dL (14.0-18.0); Immature Granulocytes # (auto) 0.08 K/uL (0.00-0.02); Immature Granulocytes % (auto) 0.7 %; Lymphocytes # (auto) 0.24 K/uL (1.2-3.4); Lymphocytes % (auto) 2.1 %; Mean Corpuscular Hemoglobin 32.7 pg (25-34); Mean Corpuscular Hgb Conc 34.1 g/dL (32-36); Mean Corpuscular Volume 95.7 fL (80-100); Mean Platelet Volume 10.8 fL (7.4-10.4); Monocytes # (auto) 0.11 K/uL (0.11-0.59); Neutrophils # (auto) 10.79 K/uL (1.4-6.5); Neutrophils % (auto) 96.1 %; Platelet Count 100 K/uL (130-400); RDW Coefficient of Variation 17.6 % (11.5-14.5); RDW Standard Deviation 62.1 fL (36.4-46.3); Red Blood Count 3.46 M/uL (4.7-6.1); White Blood Count 11.23 K/uL (4.8-10.8)
[2022-03-06 06:35] LABS: Base Excess ABG -1.8 mEq/L (-9-1.8); HCO3 ABG 20 mmol/L (19-24); Oxygen Saturation ABG 97.1 % (90-95); PCO2 ABG 24 mmHg (35-46); PO2 ABG 81 mmHg (80-95)
[2022-03-06 06:42] LABS: Albumin Globulin Ratio 1.3 (0.9-2); Albumin Level 2.9 gm/dl (3.4-5.0); Bilirubin,Total 0.4 mg/dl (0.2-1.0); Calcium 7.6 mg/dl (8.5-10.1); Creatinine Clr Calc Pharmacy 75.7 ml/min; Est GFR (African American) 92.1 ml/min; Est GFR (Non-African American) 79.5 ml/min; Globulin 2.3 gm/dl (2.5-4.0); Potassium 3.2 mmol/L (3.5-5.1); Total Protein 5.2 gm/dl (6.0-8.3)
[2022-03-06 06:43] LABS: Allen Test Pos (Pos)
[2022-03-06 06:44] LABS: pH ABG 7.53 (7.35-7.45)
[2022-03-06] MEDS ORDERED: POTASSIUM CHLORIDE CRTAB 20 MEQ TABCR PO STA (07:49)
--- NOTE | 2022-03-06 08:05 | XRay Report ---
XR chest 1V portable HISTORY: 76 years-old Male f/u up follow-up study in a patient with left-sided pulmonary opacities COMPARISON: Chest radiograph 03/04/2022, CTA chest 03/01/2022. TECHNIQUE: Portable AP view of the chest FINDINGS: Telemetry leads are coiled over the chest. Unchanged positioning of the left subclavian [id number] catheter. The cardiac silhouette is enlarged. No pneumothorax. Suspected trace left pleural effusion . Interstitial coarsening with progressively worsened airspace opacities throughout the left lung. De generative changes of the shoulders and spine. Osteolytic disease of the thoracic spine is better see n on the comparison chest CT. IMPRESSION: 1. Interstitial coarsening with mildly progressed left lung predominant airspace opacities. 2. Cardiomegaly. ACT 112: Negative or not required by law. The above report was generated using voice recognition software. It may contain grammatical, syntax o r spelling errors. Electronically signed by: Salty Barros M.D. 03/06/2022 8:03 AM
[2022-03-06] MEDS: FLUTICASONE/VILANTEROL 200/25MCG 14 PUFFS/INHALER INH SCH (08:44)
[2022-03-06] MEDS: FLUCONAZOLE 100 MG TAB PO SCH (08:44)
[2022-03-06] MEDS: DOCUSATE SODIUM/SENNA 50/8.6MG TAB PO SCH (08:44)
[2022-03-06] MEDS: FUROSEMIDE 20 MG TAB PO SCH (08:44)
[2022-03-06] MEDS: CITALOPRAM 20 MG TAB PO SCH (08:44)
[2022-03-06] MEDS: POTASSIUM CITRATE 10 MEQ TAB PO SCH ×2 (08:44→20:25)
[2022-03-06] MEDS: CYANOCOBALAMIN 1000 MCG/ML VIAL IM SCH (08:59)
[2022-03-06] MEDS: ENOXAPARIN 100 MG/1ML SYR SQ SCH ×2 (08:59→21:09)
[2022-03-06] MEDS ORDERED: POTASSIUM CHLORIDE / WTR 10 MEQ/100 ML PLCT IV SCH (09:30)
--- NOTE | 2022-03-06 09:44 | Hospitalist Progress Note ---
Date of Service March 06, 2022 Assessment & Plan (1) Acute encephalopathy: Plan: Patient presented with worsening SOB, acute respiratory failure with hypoxia, and worsening ground-glass opacities on CT angiogram chest. Negative for PE. Hallucinations afternoon 03/04 after starting high dose steroids 40mg BID with listed allergy hallucinations on dexamethasone and being taken down for bronchoscopy and moved to telemetry 03/04 ABG with pH 7.5 -- had been hyperventilating and continues to pull off his oxygen. Repeat abg still alkalotic Ammonia wnl UA without evidence for infection CT head without evidence for acute CVA Monitoring ABG, alkalotic, likely from hyperventilation/agitation Became agitated/continued restlessness evening 03/05. Was to avoid antipsychotics given QTC but overnight team given Haldol 5mg, ativan 1mg and increased agitation/confusion this morning BiPAP shortly then 10-15L Oxymask, now titrated to 95% on 5L Oxymask Tx to ICU status, and placed on precedex gtt -- continue for now. Suspect compounding hospital delirium/medication/insomnia/infection playing role (also got dose ambien prior to the ativan/haldol) Discussed with ICU rotary shear cutter and no need for CTAP at this time given prior appendicitis and remains on ZOsyn Discontinued steroids (last dose 20:18 03/03) ICU given 100meq BiCarb DISCONTINUING BACTRIM 03/05 as could also be causing issue Continue to monitor in ICU (2) Shortness of breath: Plan: Sputum cx heavy normal deep BCx NGTD COVID/flu/RSV negative Fungitell, Legionella, Mycoplasma all pending BNP not elevated Now on precedex, able to titrate to 5L Oxymask currently Monitor -- see above, Bactrim discontinued Remains on Zosyn, Fluconazole -- may need to make IV if unable to tolerate PO today due to AMS need 2 step (3) Acute respiratory failure with hypoxia: Plan: Secondary to pneumonia, now steroid induced/medication induced encephalopathy Continue supplemental O2 to keep pulse ox greater than 90% (4) Cryptococcal pneumonitis: Plan: Continue fluconazole 400 mg p.o. once daily -- may need to make PO as on precedex Holding chemotherapy for the last 2 months (5) Diarrhea: Plan: Has had 8 nonbloody loose stools in the last 24 hours prior to admission No antibiotics last month except for fluconazole stool panel PCR negative No abdominal pains-no need for further imaging at this time however noted prior admit for appendicitis tx w/ abx No further diarrhea No need for CTAP per rotary shear cutter discussion this AM (6) History of pulmonary embolism: Plan: Lovenox resumed as no bronch given encephalopathy Follows with anticoagulation clinic Previously on Coumadin but has been held while he is on fluconazole and they had been utilizing Lovenox (7) (HFpEF) heart failure with preserved ejection fraction: Plan: No acute issues, does not appear hypervolemic but BNP slightly elevated CXR with improvement, no increase in LE edema remains on lasix 20mg daily when able to take Monitor (8) Light chain myeloma: Plan: Follows with oncology at [facility] Holding all home chemotherapy due to recent infection -- tacrolimus level low Still takes dexamethasone once a week on but using prednisone as above despite being listed as an allergy --d/c for now given above Continue suppressive acyclovir 400 mg p.o. twice daily -- again, may need to make IV if not taking PO (9) Hypokalemia: Plan: Secondary to poor p.o. intake and GI losses 3.6 on repeat, mag wnl Monitor (10) Thrombocytopenia: Plan: Stable Likely secondary to acute illness Follow CBC (11) Anemia: Plan: Mild and at baseline Follow CBC Normocytic but was macrocytic. Patient does have hx myeloma though Did check B12 given gait/memory --> LOW 162 AND IM REPLACEMENT ORDERED INPATIENT, PO AT DISCHARGE REC'D (12) BPH loc w urin obs/LUTS: Plan: No acute issues Bladder scan as needed Continue home dutasteride (13) GERD (gastroesophageal reflux disease): Plan: Continue home PPI, increased to BID while on steroids mag replaced and repeat wnl (14) Osteoporosis 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: (15) Depression: Plan: Continue home Celexa -- on hold currently on precedex (16) Calculus of kidney: Plan: With a history of uric acid stones, follows with urology Continue home Urocit-K and allopurinol (17) B12 deficiency: Plan: checked, low replacement ordered should also help with anemia Plan: continued inpatient stay, ICU status on precedex gtt currently Admission and Anticipated Discharge Date Admission Date: March 01, 2022 Supervising Physician Co-Signing Physician Notes PA Supervision Note: I did not personally see or examine the patient today, but I verified all sanchez points of MARCIAL Hoffmann's assessment and plan with the following exceptions/additions: None Subjective Patient evaluated this morning. Appears much more agitated and confused today. Responds to name. Was on BipAP dehydrator tender then switched back to Oxymask. Initially on 10-15L Oxymask, unable to tolerate nasal cannula. Apparently asking for alcohol overnight, no recent hx alcohol use/abuse. Given haldol overnight and ativan, likely worsening confusion given prolonged QTC prior. Discussed with rotary shear cutter and agreed to make ICU status and start precedex. Going to discontinue the bactrim as well. Also discontinuing the cardizem gtt given sinus tachycardia on monitor. No need for CTAP at this time as patient already on Zosyn. Dr Manzo updated this afternoon. This afternoon, patient with improvement in respiratory status, now in 20s. Resting. PRecedex turned down and became agitated again and resumed. Now 95% on 5L Oxymask this evening. Will monitor off steroids and Bactrim. Review of Systems Review of Systems: All systems reviewed & are unremarkable except as noted in HPI & below Physical Exam Physical Exam: General: restless, agitated, tachypneic/hyperventilating, +hallucinations, mild respiratory distress, not cooperative with exam HEENT: head atraumatic, normocephalic, pupils equal/reactive, slightly dry mm, trachea midline irritation under eyes from Oxymask rubbing Resp: taachypneic (RR in the 40s this morning, improved to 20s afternoon) decreased air entry bilaterally, scattered crackles L>R, no wheezing appreciated, on Oxymask this afternoon 5L CV: tachycardic (regular on monitor, rates 100-110s), no m/r/g, no calf edema GI:+BS, soft/nontender : no munoz MSK/Neuro: restless, moving all extremities, no focal motor deficit, but unable to participate in exam, no facial droop Psych: alert this morning but not oriented to person/place/time Results & Data Results & Data ([facility]) Vital Signs (Past 12 Hours) Vital Signs Temp Pulse Pulse Resp BP BP Pulse Ox 03/06/22 08:19 120 H 42 H 97 03/06/22 07:11 37.5 C 115 H 32 H 100/73 98 03/06/22 06:20 113 H 27 H 03/06/22 06:10 158 H 87 L 03/06/22 06:00 113 H 35 H 93 03/06/22 05:50 113 H 30 H 96 03/06/22 05:40 117 H 28 H 94 03/06/22 05:30 114 H 39 H 93 03/06/22 05:27 114 H 35 H 154/85 H 95 03/06/22 05:20 123 H 28 H 94 03/06/22 05:10 119 H 25 H 95 03/06/22 05:00 125 H 39 H 93 03/06/22 04:50 122 H 21 89 L 03/06/22 04:40 115 H 34 H 88 L 03/06/22 04:38 37.2 C 03/06/22 04:36 121 H 33 H 118/77 91 03/06/22 04:30 122 H 28 H 88 L 03/06/22 04:20 121 H 30 H 92 03/06/22 04:10 120 H 34 H 92 03/06/22 04:00 120 H 38 H 89 L 03/06/22 03:50 128 H 23 88 L 03/06/22 03:40 117 H 36 H 95 03/06/22 03:30 116 H 41 H 93 03/06/22 03:20 119 H 29 H 97 03/06/22 03:10 115 H 26 H 96 03/06/22 03:00 120 H 27 H 94 03/06/22 02:50 123 H 38 H 98 03/06/22 02:43 157 H 23 133/106 H 90 03/06/22 02:40 117 H 31 H 95 03/06/22 02:30 131 H 21 90 03/06/22 02:20 123 H 40 H 93 03/06/22 02:10 129 H 23 79 L 03/06/22 02:00 119 H 23 95 03/06/22 01:50 115 H 26 H 96 03/06/22 01:40 134 H 26 H 97 03/06/22 01:30 120 H 27 H 97 03/06/22 01:20 121 H 32 H 93 03/06/22 01:10 120 H 33 H 94 03/06/22 01:00 128 H 32 H 93 03/06/22 00:50 161 H 34 H 94 03/06/22 00:48 163 H 27 H 173/125 H 92 03/06/22 00:40 123 H 30 H 93 03/06/22 00:30 138 H 26 H 92 03/06/22 00:20 144 H 20 90 03/06/22 00:10 135 H 38 H 88 L 03/06/22 00:04 136 H 26 H 149/90 H 87 L 03/06/22 00:00 137 H 25 H 86 L 03/05/22 23:50 138 H 22 83 L 03/05/22 23:40 135 H 30 H 93 03/05/22 23:30 162 H 21 95 03/05/22 23:20 165 H 25 H 93 03/05/22 23:19 161 H 33 H 137/113 H 90 03/05/22 23:10 163 H 26 H 96 03/05/22 23:00 168 H 20 87 L 03/05/22 22:51 37.3 C 03/05/22 22:50 142 H 37 H 87 L 03/05/22 22:40 160 H 24 03/05/22 22:30 126 H 41 H 88 L 03/05/22 22:20 80 L 03/05/22 22:10 73 L 03/05/22 22:00 78 L 03/05/22 21:50 164 H 25 H 77 L Laboratory Results 03/06/22 03/06/22 03/06/22 Range/Units Unknown 15:53 15:53 WBC (4.8-10.8) K/uL RBC (4.7-6.1) M/uL Hgb (14.0-18.0) g/dL Hct (42-52) % MCV (80-100) fL MCH (25-34) pg MCHC (32-36) g/dL RDW Std Deviation (36.4-46.3) fL RDW Coeff of Eyal (11.5-14.5) % Plt Count (130-400) K/uL MPV (7.4-10.4) fL Immature Gran % (Auto) % Neut % (Auto) % Lymph % (Auto) % Lawrence % (Auto) % Eos % (Auto) % Baso % (Auto) % Neut # (Auto) (1.4-6.5) K/uL Lymph # (Auto) (1.2-3.4) K/uL Lawrence # (Auto) (0.11-0.59) K/uL Eos # (Auto) (0-0.5) K/uL Baso # (Auto) (0-0.2) K/uL Immature Gran # (Auto) (0.00-0.02) K/uL ABG pH (7.35-7.45) ABG pCO2 (35-46) mmHg ABG pO2 (80-95) mmHg ABG HCO3 (19-24) mmol/L ABG O2 Saturation (90-95) % ABG Base Excess (-9-1.8) mEq/L Aiden Test (Pos) Barometric Pressure mm/Hg Oxygen Given Sodium 131 L (136-145) mmol/L Potassium 3.8 (3.5-5.1) mmol/L Chloride 99 (98-107) mmol/L Carbon Dioxide 23 (21-32) mmol/L Anion Gap 9 (3-11) BUN 13 (6-23) mg/dl Creatinine 0.86 (0.6-1.4) mg/dl Est Cr Clr Drug Dosing 81.8 ml/min Est GFR ( Amer) 97.6 ml/min Est GFR (Non-Af Amer) 84.2 ml/min BUN/Creatinine Ratio 15.1 (10-20) Glucose 119 H (70-99(Fasting)) mg/dl Lactate (0.4-2.0) mmol/L Calcium 7.7 L (8.5-10.1) mg/dl Phosphorus (2.5-4.9) mg/dl Magnesium 2.1 Cancelled (1.7-2.4) mg/dl Total Bilirubin (0.2-1.0) mg/dl AST (13-39) U/L ALT (7-52) U/L Alkaline Phosphatase (34-104) U/L Lactate Dehydrogenase (86-244) U/L Troponin I High Sens (0-20) pg/ml Total Protein (6.0-8.3) gm/dl Albumin (3.4-5.0) gm/dl Globulin (2.5-4.0) gm/dl Albumin/Globulin Ratio (0.9-2) Urine Ketones 1+ H (Negative) Tacrolimus mcg/L Urine Legionella Ag Mycoplasma pneumon IgM (<770) U/mL 03/06/22 03/06/22 03/06/22 Range/Units 10:52 09:40 06:00 WBC (4.8-10.8) K/uL RBC (4.7-6.1) M/uL Hgb (14.0-18.0) g/dL Hct (42-52) % MCV (80-100) fL MCH (25-34) pg MCHC (32-36) g/dL RDW Std Deviation (36.4-46.3) fL RDW Coeff of Eyal (11.5-14.5) % Plt Count (130-400) K/uL MPV (7.4-10.4) fL Immature Gran % (Auto) % Neut % (Auto) % Lymph % (Auto) % Lawrence % (Auto) % Eos % (Auto) % Baso % (Auto) % Neut # (Auto) (1.4-6.5) K/uL Lymph # (Auto) (1.2-3.4) K/uL Lawrence # (Auto) (0.11-0.59) K/uL Eos # (Auto) (0-0.5) K/uL Baso # (Auto) (0-0.2) K/uL Immature Gran # (Auto) (0.00-0.02) K/uL ABG pH 7.53 H* (7.35-7.45) ABG pCO2 24 L (35-46) mmHg ABG pO2 81 (80-95) mmHg ABG HCO3 20 (19-24) mmol/L ABG O2 Saturation 97.1 H (90-95) % ABG Base Excess -1.8 (-9-1.8) mEq/L Aiden Test Pos (Pos) Barometric Pressure 728.2 mm/Hg Oxygen Given 10L Sodium (136-145) mmol/L Potassium (3.5-5.1) mmol/L Chloride (98-107) mmol/L Carbon Dioxide (21-32) mmol/L Anion Gap (3-11) BUN (6-23) mg/dl Creatinine (0.6-1.4) mg/dl Est Cr Clr Drug Dosing ml/min Est GFR ( Amer) ml/min Est GFR (Non-Af Amer) ml/min BUN/Creatinine Ratio (10-20) Glucose (70-99(Fasting)) mg/dl Lactate 1.2 (0.4-2.0) mmol/L Calcium (8.5-10.1) mg/dl Phosphorus (2.5-4.9) mg/dl Magnesium (1.7-2.4) mg/dl Total Bilirubin (0.2-1.0) mg/dl AST (13-39) U/L ALT (7-52) U/L Alkaline Phosphatase (34-104) U/L Lactate Dehydrogenase 474 H (86-244) U/L Troponin I High Sens (0-20) pg/ml Total Protein (6.0-8.3) gm/dl Albumin (3.4-5.0) gm/dl Globulin (2.5-4.0) gm/dl Albumin/Globulin Ratio (0.9-2) Urine Ketones (Negative) Tacrolimus mcg/L Urine Legionella Ag Mycoplasma pneumon IgM (<770) U/mL 03/06/22 03/06/22 03/05/22 Range/Units 06:00 06:00 23:26 WBC 11.23 H 12.50 H (4.8-10.8) K/uL RBC 3.46 L 3.88 L (4.7-6.1) M/uL Hgb 11.3 L 12.8 L (14.0-18.0) g/dL Hct 33.1 L 37.3 L (42-52) % MCV 95.7 96.1 (80-100) fL MCH 32.7 33.0 (25-34) pg MCHC 34.1 34.3 (32-36) g/dL RDW Std Deviation 62.1 H 62.6 H (36.4-46.3) fL RDW Coeff of Eyal 17.6 H 17.7 H (11.5-14.5) % Plt Count 100 L 105 L (130-400) K/uL MPV 10.8 H 9.9 (7.4-10.4) fL Immature Gran % (Auto) 0.7 0.7 % Neut % (Auto) 96.1 95.6 % Lymph % (Auto) 2.1 2.7 % Lawrence % (Auto) 1.0 0.9 % Eos % (Auto) 0.1 0.1 % Baso % (Auto) 0.0 0.0 % Neut # (Auto) 10.79 H 11.95 H (1.4-6.5) K/uL Lymph # (Auto) 0.24 L 0.34 L (1.2-3.4) K/uL Lawrence # (Auto) 0.11 0.11 (0.11-0.59) K/uL Eos # (Auto) 0.01 0.01 (0-0.5) K/uL Baso # (Auto) 0.00 0.00 (0-0.2) K/uL Immature Gran # (Auto) 0.08 H 0.09 H (0.00-0.02) K/uL ABG pH (7.35-7.45) ABG pCO2 (35-46) mmHg ABG pO2 (80-95) mmHg ABG HCO3 (19-24) mmol/L ABG O2 Saturation (90-95) % ABG Base Excess (-9-1.8) mEq/L Aiden Test (Pos) Barometric Pressure mm/Hg Oxygen Given Sodium 128 L (136-145) mmol/L Potassium 3.2 L (3.5-5.1) mmol/L Chloride 99 (98-107) mmol/L Carbon Dioxide 19 L (21-32) mmol/L Anion Gap 10 (3-11) BUN 13 (6-23) mg/dl Creatinine 0.93 (0.6-1.4) mg/dl Est Cr Clr Drug Dosing 75.7 ml/min Est GFR ( Amer) 92.1 ml/min Est GFR (Non-Af Amer) 79.5 ml/min BUN/Creatinine Ratio 14.0 (10-20) Glucose 161 H (70-99(Fasting)) mg/dl Lactate (0.4-2.0) mmol/L Calcium 7.6 L (8.5-10.1) mg/dl Phosphorus (2.5-4.9) mg/dl Magnesium 2.0 (1.7-2.4) mg/dl Total Bilirubin 0.4 (0.2-1.0) mg/dl AST 18 (13-39) U/L ALT 33 (7-52) U/L Alkaline Phosphatase 62 (34-104) U/L Lactate Dehydrogenase (86-244) U/L Troponin I High Sens (0-20) pg/ml Total Protein 5.2 L (6.0-8.3) gm/dl Albumin 2.9 L (3.4-5.0) gm/dl Globulin 2.3 L (2.5-4.0) gm/dl Albumin/Globulin Ratio 1.3 (0.9-2) Urine Ketones (Negative) Tacrolimus mcg/L Urine Legionella Ag Mycoplasma pneumon IgM (<770) U/mL 03/05/22 03/05/22 03/02/22 Range/Units 23:26 17:31 12:18 WBC (4.8-10.8) K/uL RBC (4.7-6.1) M/uL Hgb (14.0-18.0) g/dL Hct (42-52) % MCV (80-100) fL MCH (25-34) pg MCHC (32-36) g/dL RDW Std Deviation (36.4-46.3) fL RDW Coeff of Eyal (11.5-14.5) % Plt Count (130-400) K/uL MPV (7.4-10.4) fL Immature Gran % (Auto) % Neut % (Auto) % Lymph % (Auto) % Lawrence % (Auto) % Eos % (Auto) % Baso % (Auto) % Neut # (Auto) (1.4-6.5) K/uL Lymph # (Auto) (1.2-3.4) K/uL Lawrence # (Auto) (0.11-0.59) K/uL Eos # (Auto) (0-0.5) K/uL Baso # (Auto) (0-0.2) K/uL Immature Gran # (Auto) (0.00-0.02) K/uL ABG pH (7.35-7.45) ABG pCO2 (35-46) mmHg ABG pO2 (80-95) mmHg ABG HCO3 (19-24) mmol/L ABG O2 Saturation (90-95) % ABG Base Excess (-9-1.8) mEq/L Aiden Test (Pos) Barometric Pressure mm/Hg Oxygen Given Sodium 130 L (136-145) mmol/L Potassium 3.6 (3.5-5.1) mmol/L Chloride 100 (98-107) mmol/L Carbon Dioxide 18 L (21-32) mmol/L Anion Gap 12 H (3-11) BUN 13 (6-23) mg/dl Creatinine 0.91 (0.6-1.4) mg/dl Est Cr Clr Drug Dosing 71.3 ml/min Est GFR ( Amer) 94.5 ml/min Est GFR (Non-Af Amer) 81.6 ml/min BUN/Creatinine Ratio 14.3 (10-20) Glucose 135 H (70-99(Fasting)) mg/dl Lactate (0.4-2.0) mmol/L Calcium 8.3 L (8.5-10.1) mg/dl Phosphorus 2.7 (2.5-4.9) mg/dl Magnesium 2.1 (1.7-2.4) mg/dl Total Bilirubin 0.5 (0.2-1.0) mg/dl AST 23 (13-39) U/L ALT 40 (7-52) U/L Alkaline Phosphatase 70 (34-104) U/L Lactate Dehydrogenase (86-244) U/L Troponin I High Sens 119.5 H* 102.8 H* (0-20) pg/ml Total Protein 5.7 L (6.0-8.3) gm/dl Albumin 3.2 L (3.4-5.0) gm/dl Globulin 2.5 (2.5-4.0) gm/dl Albumin/Globulin Ratio 1.3 (0.9-2) Urine Ketones (Negative) Tacrolimus mcg/L Urine Legionella Ag Mycoplasma pneumon IgM 8 (<770) U/mL 03/02/22 03/01/22 Range/Units 00:30 15:32 WBC (4.8-10.8) K/uL RBC (4.7-6.1) M/uL Hgb (14.0-18.0) g/dL Hct (42-52) % MCV (80-100) fL MCH (25-34) pg MCHC (32-36) g/dL RDW Std Deviation (36.4-46.3) fL RDW Coeff of Eyal (11.5-14.5) % Plt Count (130-400) K/uL MPV (7.4-10.4) fL Immature Gran % (Auto) % Neut % (Auto) % Lymph % (Auto) % Lawrence % (Auto) % Eos % (Auto) % Baso % (Auto) % Neut # (Auto) (1.4-6.5) K/uL Lymph # (Auto) (1.2-3.4) K/uL Lawrence # (Auto) (0.11-0.59) K/uL Eos # (Auto) (0-0.5) K/uL Baso # (Auto) (0-0.2) K/uL Immature Gran # (Auto) (0.00-0.02) K/uL ABG pH (7.35-7.45) ABG pCO2 (35-46) mmHg ABG pO2 (80-95) mmHg ABG HCO3 (19-24) mmol/L ABG O2 Saturation (90-95) % ABG Base Excess (-9-1.8) mEq/L Adien Test (Pos) Barometric Pressure mm/Hg Oxygen Given Sodium (136-145) mmol/L Potassium (3.5-5.1) mmol/L Chloride (98-107) mmol/L Carbon Dioxide (21-32) mmol/L Anion Gap (3-11) BUN (6-23) mg/dl Creatinine (0.6-1.4) mg/dl Est Cr Clr Drug Dosing ml/min Est GFR ( Amer) ml/min Est GFR (Non-Af Amer) ml/min BUN/Creatinine Ratio (10-20) Glucose (70-99(Fasting)) mg/dl Lactate (0.4-2.0) mmol/L Calcium (8.5-10.1) mg/dl Phosphorus (2.5-4.9) mg/dl Magnesium (1.7-2.4) mg/dl Total Bilirubin (0.2-1.0) mg/dl AST (13-39) U/L ALT (7-52) U/L Alkaline Phosphatase (34-104) U/L Lactate Dehydrogenase (86-244) U/L Troponin I High Sens (0-20) pg/ml Total Protein (6.0-8.3) gm/dl Albumin (3.4-5.0) gm/dl Globulin (2.5-4.0) gm/dl Albumin/Globulin Ratio (0.9-2) Urine Ketones (Negative) Tacrolimus <1.0 L mcg/L Urine Legionella Ag SEE NOTE Mycoplasma pneumon IgM (<770) U/mL Diagnostic Findings Chest X-Ray 03/06/22 07:00 XR chest 1V portable HISTORY: 76 years-old Male f/u up follow-up study in a patient with left-sided pulmonary opacities COMPARISON: Chest radiograph 03/04/2022, CTA chest 03/01/2022. TECHNIQUE: Portable AP view of the chest FINDINGS: Telemetry leads are coiled over the chest. Unchanged positioning of the left subclavian [id number] catheter. The cardiac silhouette is enlarged. No pneumothorax. Suspected trace left pleural effusion. Interstitial coarsening with progressively worsened airspace opacities throughout the left lung. Degenerative changes of the shoulders and spine. Osteolytic disease of the thoracic spine is better seen on the comparison chest CT. IMPRESSION: 1. Interstitial coarsening with mildly progressed left lung predominant airspace opacities. 2. Cardiomegaly. ACT 112: Negative or not required by law. The above report was generated using voice recognition software. It may contain grammatical, syntax or spelling errors. Electronically signed by: Salty Barros M.D. 03/06/2022 8:03 AM PG Care Time/CCT Total # of Minutes Spent Total Time Spent with Patient: Total time spent is greater than 50% in coordination of care (as documented) at patient's floor/unit and/or counseling patient: Coding Level of Care Code 87481 Subseq Hosp Care Lvl 3 Diagnoses Acute encephalopathy G93.40 Shortness of breath R06.02 Acute respiratory failure with hypoxia J96.01 Cryptococcal pneumonitis B45.0 Diarrhea R19.7 History of pulmonary embolism Z86.711 (HFpEF) heart failure with preserved ejection fraction I50.30 Light chain myeloma C90.00 Hypokalemia E87.6 Thrombocytopenia D69.6 Anemia D64.9 BPH loc w urin obs/LUTS N40.1 GERD (gastroesophageal reflux disease) K21.9 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
[2022-03-06] MEDS ORDERED: SODIUM BICARBONATE IV ONE (09:45)
[2022-03-06] MEDS ORDERED: DEXTROSE 5% IV ONE (09:45)
--- NOTE | 2022-03-06 09:55 | Pulmonology Progress Note ---
Date of Service March 06, 2022 Assessment & Plan (1) Acute respiratory failure with hypoxia: (2) Abnormal chest CT: (3) Multiple myeloma: Plan: CT chest 03/01/2022 personally reviewed: Diffuse groundglass opacities appreciated bilaterally especially in the left upper and left lower lobe Right upper lobe consolidative process in the apex (improved compared to 12/2021) No significant mediastinal lymphadenopathy -- Acute hypoxic respiratory failure with diffuse groundglass opacities bilaterally Patient had this finding dating back to December 2021 As per the chart he has been being treated with fluconazole for possible cryptococcus pneumonia since approximately a month Patient did have dense consolidative process in the right upper lobe which has improved compared to December. Cryptococcal pneumonia usually gives dense consolidative process. Groundglass opacities appreciated bilaterally unlikely to be from cryptococcus Differential for it includes infectious versus noninfectious Infectious includes PJP given the patient is immunocompromised, viral infection can also present this result already on acyclovir prophylactically Noninfectious etiology includes autoimmune pneumonitis, drug-induced pneumonitis as well as diffuse alveolar hemorrhage Given patient's hemoglobin has been stable since December and is not having any significant hemoptysis I doubt this is diffuse alveolar hemorrhage PJP treatment started 03/02/2022 LDH 237 CRP 11.11, procalcitonin negative Nasal MRSA negative BNP 138 Follow-up LUIS with reflex, Fungitell -- Acute metabolic encephalopathy Multifactorial Patient does have history of agitation/hallucinations from dexamethasone Prednisone has been stopped since 03/03/2022 Patient was started on Bactrim for possible PJP, Bactrim sometimes has been as sociated with hallucinations as well CT head 03/04/2022 negative Ammonia within normal limit -- Sinus tachycardia Likely from underlying agitation He was started on diltiazem overnight as one of the EKG seem to be A. fib RVR, it seems more sinus with PACs We will DC diltiazem --Normal anion gap metabolic acidosis I will order lactate as well as urine ketones -- Hyponatremia with hypochloremia Bactrim has been associated with hyponatremia Plan: Chest x-ray from today still shows opacities especially on the left side I am going to DC Bactrim as well as it has been associated with hallucinations encephalopathy in elderly people. Prednisone has been on hold for 3 days now. Continue one-to-one monitoring I will start the patient on Precedex given the significant encephalopathy/delirium. This will help with calming him down. 100 mg of sodium bicarb given to the patient which will help with the metabolic acidosis as well as hyponatremia. For the time being bronchoscopy is put on hold. Continue with Bactrim as we are treating for PJP Case was discussed with Silvana Hoffmann I have personally spent 35 minutes of critical care time in the direct management of this patient. This is a life/limb threatening event. This includes time spent evaluating patient, direct bedside care, chart review, placing orders, interpretation of diagnostic studies, discussion with consultants, patient, and family members, as well as other required patient management activities. This time is exclusive of all separately billable procedures, and teaching time and separate from and in addition to any other critical care service time. Please note the above document was generated using voice recognition software. It may contain grammatical, syntax or spelling errors. Admission and Anticipated Discharge Date Admission Date: March 01, 2022 Subjective Patient seen and examined at bedside. Overnight patient got more restless and he got 1 and half milligrams of Ativan as well as 5 mg of IM haloperidol Ibuprofen example he should he was on BiPAP saturating 95 to 96% on 50% FiO2 Nurse that was at bedside who stated that he got more agitated after putting the BiPAP on. I discontinued the BiPAP and put him back on oxygen mask. He denied any headache, no chest pain, no belly pain. Review of Systems Review of Systems: Unobtainable due to mental health condition Physical Exam Physical Exam: Constitutional: No acute distress HEENT: EOMI, PERRLA Respiratory system: Decreased air entry bilaterally, positive crackles appreciated bilaterally more on the left side, no wheeze, no rhonchi CVS: S1-S2 positive, no murmurs or gallops Abdomen: Soft, nontender, nondistended, positive bowel sounds x4, obese Extremities: +2 pulses bilaterally radialis/ dorsalis pedis, no cyanosis, +1 pitting edema bilateral lower extremity Neuro: Restless Psych: Unable to assess G/U: No Gonzalez Skin: no rashes, warm and dry Lymphatic: no cervical or axillary lymphadenopathy Results & Data Results & Data ([facility]) Vital Signs (Past 12 Hours) Vital Signs Temp Pulse Pulse Resp BP BP Pulse Ox 03/06/22 08:19 120 H 42 H 97 03/06/22 07:11 37.5 C 115 H 32 H 100/73 98 03/06/22 06:20 113 H 27 H 03/06/22 06:10 158 H 87 L 03/06/22 06:00 113 H 35 H 93 03/06/22 05:50 113 H 30 H 96 03/06/22 05:40 117 H 28 H 94 03/06/22 05:30 114 H 39 H 93 03/06/22 05:27 114 H 35 H 154/85 H 95 03/06/22 05:20 123 H 28 H 94 03/06/22 05:10 119 H 25 H 95 03/06/22 05:00 125 H 39 H 93 03/06/22 04:50 122 H 21 89 L 03/06/22 04:40 115 H 34 H 88 L 03/06/22 04:38 37.2 C 03/06/22 04:36 121 H 33 H 118/77 91 03/06/22 04:30 122 H 28 H 88 L 03/06/22 04:20 121 H 30 H 92 03/06/22 04:10 120 H 34 H 92 03/06/22 04:00 120 H 38 H 89 L 03/06/22 03:50 128 H 23 88 L 03/06/22 03:40 117 H 36 H 95 03/06/22 03:30 116 H 41 H 93 03/06/22 03:20 119 H 29 H 97 03/06/22 03:10 115 H 26 H 96 03/06/22 03:00 120 H 27 H 94 03/06/22 02:50 123 H 38 H 98 03/06/22 02:43 157 H 23 133/106 H 90 03/06/22 02:40 117 H 31 H 95 03/06/22 02:30 131 H 21 90 03/06/22 02:20 123 H 40 H 93 03/06/22 02:10 129 H 23 79 L 03/06/22 02:00 119 H 23 95 03/06/22 01:50 115 H 26 H 96 03/06/22 01:40 134 H 26 H 97 03/06/22 01:30 120 H 27 H 97 03/06/22 01:20 121 H 32 H 93 03/06/22 01:10 120 H 33 H 94 03/06/22 01:00 128 H 32 H 93 0603/22 00:50 161 H 34 H 94 03/06/22 00:48 163 H 27 H 173/125 H 92 03/06/22 00:40 123 H 30 H 93 03/06/22 00:30 138 H 26 H 92 03/06/22 00:20 144 H 20 90 03/06/22 00:10 135 H 38 H 88 L 03/06/22 00:04 136 H 26 H 149/90 H 87 L 03/06/22 00:00 137 H 25 H 86 L 03/05/22 23:50 138 H 22 83 L 03/05/22 23:40 135 H 30 H 93 03/05/22 23:30 162 H 21 95 03/05/22 23:20 165 H 25 H 93 03/05/22 23:19 161 H 33 H 137/113 H 90 03/05/22 23:10 163 H 26 H 96 03/05/22 23:00 168 H 20 87 L 03/05/22 22:51 37.3 C 03/05/22 22:50 142 H 37 H 87 L 03/05/22 22:40 160 H 24 03/05/22 22:30 126 H 41 H 88 L 03/05/22 22:20 80 L 03/05/22 22:10 73 L 03/05/22 22:00 78 L Laboratory Results 03/06/22 06:00 03/06/22 06:00 PG Care Time/CCT Total # of Minutes Spent Total Time Spent with Patient: Total time spent is greater than 50% in coordination of care (as documented) at patient's floor/unit and/or counseling patient: Coding Level of Care Code Critical Care 1st 30-74 mins Diagnoses Acute respiratory failure with hypoxia J96.[address] R93.89 Multiple myeloma C90.00 Time Spent (min) 35
[2022-03-06] MEDS: POTASSIUM CHLORIDE / WTR 20 MEQ/100 ML PLCT IV SCH ×2 (10:00→11:45)
[2022-03-06] MEDS: dexMEDEtomidine 200 MCG/50 ML BAG IV SCH ×4 (10:57→21:03)
[2022-03-06 16:34] LABS: BUN Creatinine Ratio 15.1 (10-20); Calcium 7.7 mg/dl (8.5-10.1); Creatinine Clr Calc Pharmacy 81.8 ml/min; Est GFR (African American) 97.6 ml/min; Est GFR (Non-African American) 84.2 ml/min; Magnesium 2.1 mg/dl (1.7-2.4); Potassium 3.8 mmol/L (3.5-5.1)
--- NOTE | 2022-03-06 17:21 | XCELERA ---
[id number]
[2022-03-06] MEDS: PANTOprazole 40 MG in SYRINGE 0 ML IV SCH (21:09)
[2022-03-07] MEDS: dexMEDEtomidine 400 MCG/100 ML BAG IV SCH ×3 (00:06→17:22)
[2022-03-07 05:41] LABS: Hematocrit (blood only) 30.4 % (42-52); Hemoglobin 10.3 g/dL (14.0-18.0); Mean Corpuscular Hemoglobin 32.8 pg (25-34); Mean Corpuscular Hgb Conc 33.9 g/dL (32-36); Mean Corpuscular Volume 96.8 fL (80-100); RDW Coefficient of Variation 17.7 % (11.5-14.5); RDW Standard Deviation 63.2 fL (36.4-46.3); Red Blood Count 3.14 M/uL (4.7-6.1); White Blood Count 7.27 K/uL (4.8-10.8)
[2022-03-07] MEDS: PIPERACILLIN/TAZOBACTAM 3.375 GM in DEXTROSE 5% 100 ML IV SCH ×3 (05:53→23:00)
[2022-03-07 06:02] LABS: Mean Platelet Volume 10.3 fL (7.4-10.4); Platelet Count 87 K/uL (130-400)
[2022-03-07 06:04] LABS: Calcium 7.9 mg/dl (8.5-10.1); Creatinine Clr Calc Pharmacy 82.8 ml/min; Est GFR (African American) 98.1 ml/min; Est GFR (Non-African American) 84.6 ml/min; Magnesium 2.3 mg/dl (1.7-2.4); Phosphorus 3.1 mg/dl (2.5-4.9); Potassium 3.9 mmol/L (3.5-5.1)
[2022-03-07 06:05] LABS: Eosinophils # (auto) 0.07 K/uL (0-0.5); Immature Granulocytes # (auto) 0.05 K/uL (0.00-0.02); Immature Granulocytes % (auto) 0.7 %; Lymphocytes # (auto) 0.16 K/uL (1.2-3.4); Lymphocytes % (auto) 2.2 %; Monocytes # (auto) 0.03 K/uL (0.11-0.59); Monocytes % (auto) 0.4 %; Neutrophils # (auto) 6.96 K/uL (1.4-6.5); Neutrophils % (auto) 95.7 %; Platelet Estimate Decreased (Normal); RBC Morphology Unremarkable
--- NOTE | 2022-03-07 07:31 | XRay Report ---
XR chest 1V portable HISTORY: 76 years-old Male Resp failure acute respiratory failure COMPARISON: Chest radiograph 03/06/2022 TECHNIQUE: Portable AP view of the chest FINDINGS: Cardiac silhouette is enlarged. Left IJ central venous catheter distal tip projects over the right at rium. Interstitial coarsening with left lung predominant airspace opacities are redemonstrated. Suspe cted trace pleural effusions. Degenerative changes of the shoulders and spine. IMPRESSION: Cardiomegaly without significant change of the bilateral mixed interstitial and alveolar opacities. ACT 112: Negative or not required by law. The above report was generated using voice recognition software. It may contain grammatical, syntax o r spelling errors. Electronically signed by: Salty Barros M.D. 03/07/2022 7:30 AM
[2022-03-07] MEDS ORDERED: predniSONE 20 MG TAB PO SCH (09:00)
[2022-03-07] MEDS: allopurinoL 100 MG TAB PO SCH ×2 (09:33→20:17)
[2022-03-07] MEDS: DOCUSATE SODIUM/SENNA 50/8.6MG TAB PO SCH (09:33)
[2022-03-07] MEDS: POTASSIUM CITRATE 10 MEQ TAB PO SCH ×2 (09:33→20:18)
[2022-03-07] MEDS: FLUCONAZOLE 100 MG TAB PO SCH (09:33)
[2022-03-07] MEDS: ACYCLOVIR 400 MG TAB PO SCH ×2 (09:33→20:16)
[2022-03-07] MEDS: FUROSEMIDE INJ 20 MG/2 ML VIAL IV SCH (09:53)
[2022-03-07] MEDS: ENOXAPARIN 100 MG/1ML SYR SQ SCH ×2 (09:53→20:17)
[2022-03-07] MEDS: FLUTICASONE/VILANTEROL 200/25MCG 14 PUFFS/INHALER INH SCH (09:54)
[2022-03-07] MEDS: PANTOprazole 40 MG in SYRINGE 0 ML IV SCH ×2 (09:56→20:18)
--- NOTE | 2022-03-07 11:08 | Critical Care Progress Note ---
Date of Service March 07, 2022 Assessment & Plan (1) Acute respiratory failure with hypoxia: (2) Abnormal chest CT: (3) Multiple myeloma: Plan: CT chest 03/01/2022 personally reviewed: Diffuse groundglass opacities appreciated bilaterally especially in the left upper and left lower lobe Right upper lobe consolidative process in the apex (improved compared to 12/2021) No significant mediastinal lymphadenopathy -- Acute hypoxic respiratory failure with diffuse groundglass opacities bilaterally Patient had this finding dating back to December 2021 As per the chart he has been being treated with fluconazole for possible cryptococcus pneumonia since approximately a month Patient did have dense consolidative process in the right upper lobe which has improved compared to December. Cryptococcal pneumonia usually gives dense consolidative process. Groundglass opacities appreciated bilaterally unlikely to be from cryptococcus Differential for it includes infectious versus noninfectious Infectious includes PJP given the patient is immunocompromised, viral infection can also present this result already on acyclovir prophylactically Noninfectious etiology includes autoimmune pneumonitis, drug-induced pneumonitis as well as diffuse alveolar hemorrhage Given patient's hemoglobin has been stable since December and is not having any significant hemoptysis I doubt this is diffuse alveolar hemorrhage PJP treatment started 03/02/2022 LDH 237 CRP 11.11, procalcitonin negative Nasal MRSA negative BNP 138 Follow-up LUIS with reflex, Fungitell -- Acute metabolic encephalopathy Multifactorial Patient does have history of agitation/hallucinations from dexamethasone Prednisone has been stopped since 03/03/2022 Patient was started on Bactrim for possible PJP, Bactrim sometimes has been as sociated with hallucinations as well CT head 03/04/2022 negative Ammonia within normal limit -- Sinus tachycardia--> resolved Likely from underlying agitation He was started on diltiazem overnight as one of the EKG seem to be A. fib RVR, it seems more sinus with PACs We will DC diltiazem --Normal anion gap metabolic acidosis I will order lactate as well as urine ketones -- Hyponatremia Bactrim has been associated with hyponatremia --Prophylaxis VTE: Lovenox therapeutic GI: Protonix Lines: Peripheral left-sided port Diet: N.p.o. Plan: In/out: +1072, urine output 450. Patient has [place] catheter and output is not accurate P.o. Lasix has been changed to IV Chest x-ray does not show any significant change compared to yesterday Bactrim has been discontinued. Once the patient mental status improved I will try to see if we can give him atovaquone instead Cannot give steroids given the significant hallucinations from prednisone Try to titrate off Precedex For the time being bronchoscopy is put on hold. I have personally spent 35 minutes of critical care time in the direct management of this patient. This is a life/limb threatening event. This includes time spent evaluating patient, direct bedside care, chart review, placing orders, interpretation of diagnostic studies, discussion with consultants, patient, and family members, as well as other required patient management activities. This time is exclusive of all separately billable procedures, and teaching time and separate from and in addition to any other critical care service time. Please note the above document was generated using voice recognition software. It may contain grammatical, syntax or spelling errors. Admission and Anticipated Discharge Date Admission Date: March 01, 2022 Subjective Patient seen and examined at bedside. No acute distress, no delusions overnight He was on 0.7 of Precedex at the time of examination Seems to be more calm today. Answering questions appropriately Still having some hallucinations. Denies any chest pain, did complain of mild headache, no nausea or vomiting Was asking for breakfast Review of Systems Review of Systems: All systems reviewed & are unremarkable except as noted in Subjective Physical Exam Physical Exam: Constitutional: No acute distress HEENT: EOMI, PERRLA Respiratory system: Decreased air entry bilaterally, positive crackles appreciated bilaterally more on the left side, no wheeze, no rhonchi CVS: S1-S2 positive, no murmurs or gallops Abdomen: Soft, nontender, nondistended, positive bowel sounds x4, obese Extremities: +2 pulses bilaterally radialis/ dorsalis pedis, no cyanosis, +1 pitting edema bilateral lower extremity Neuro: Awake alert oriented to self and place Psych: Normal mood and affect G/U: No Gonzalez Skin: no rashes, warm and dry Lymphatic: no cervical or axillary lymphadenopathy Results & Data Results & Data ([facility]) Vital Signs (Past 12 Hours) Vital Signs Temp Pulse Resp BP Pulse Ox 03/07/22 08:20 62 26 H 95 03/07/22 08:10 67 34 H 98 03/07/22 08:00 63 27 H 91/60 L 96 03/07/22 07:50 64 21 89 L 06 07:40 68 19 93 03/07/22 07:30 68 20 93 03/07/22 07:20 60 29 H 95 03/07/22 07:10 63 28 H 96 03/07/22 07:01 66 28 H 93/64 L 96 06 07:00 62 26 H 95 03/07/22 06:50 64 29 H 96 03/07/22 06:40 71 29 H 95 03/07/22 06:30 69 31 H 94 03/07/22 06:20 74 21 94 03/07/22 06:15 68 29 H 98/63 L 94 06 06:10 66 29 H 91 03/07/22 06:00 67 30 H 98/73 L 94 03/07/22 05:50 69 31 H 94 03/07/22 05:40 68 34 H 94 03/07/22 05:30 70 31 H 94 03/07/22 05:20 69 30 H 96 03/07/22 05:10 74 27 H 93 03/07/22 05:03 71 30 H 100/55 L 94 03/07/22 05:00 67 24 93 03/07/22 04:50 67 28 H 94 03/07/22 04:40 67 30 H 97 03/07/22 04:30 65 25 H 98 03/07/22 04:20 71 28 H 97 03/07/22 04:10 70 29 H 97 03/07/22 04:00 70 30 H 92/55 L 95 03/07/22 03:50 71 28 H 95 03/07/22 03:40 70 29 H 95 03/07/22 03:30 78 35 H 93 03/07/22 03:20 68 30 H 97 03/07/22 03:10 70 28 H 96 03/07/22 03:00 75 29 H 106/54 L 97 0604 02:50 72 27 H 97 04 02:40 73 31 H 96 03/07/22 02:30 73 33 H 96 03/07/22 02:20 74 33 H 97 0604 02:10 74 33 H 94 03/07/22 02:00 71 33 H 98/70 L 96 03/07/22 01:50 72 30 H 96 03/07/22 01:40 77 33 H 96 03/07/22 01:30 84 21 95 03/07/22 01:20 74 25 H 92 03/07/22 01:10 72 34 H 95 03/07/22 01:00 74 28 H 102/76 94 03/07/22 00:54 78 03/07/22 00:50 70 28 H 91 03/07/22 00:40 72 32 H 96 03/07/22 00:30 70 35 H 96 03/07/22 00:20 80 31 H 99 03/07/22 00:10 77 33 H 96 03/07/22 00:01 82 32 H 96/67 L 96 03/07/22 00:00 78 32 H 97 03/06/22 23:50 81 35 H 95 03/06/22 23:40 79 31 H 98 03/06/22 23:30 79 29 H 97 03/06/22 23:21 37 C 03/06/22 23:20 78 33 H 96 03/06/22 23:10 81 31 H 98 Laboratory Results 03/07/22 05:29 03/07/22 05:29 Coding Level of Care Code Critical Care 1st 30-74 mins Diagnoses Acute respiratory failure with hypoxia J96.[address] R93.89 Multiple myeloma C90.00 Time Spent (min) 37
--- NOTE | 2022-03-07 14:33 | Electrocardiogram Report ---
Test Reason : Blood Pressure : / mmHG Vent. Rate : 165 BPM Atrial Rate : 166 BPM P-R Int : 000 ms QRS Dur : 082 ms QT Int : 298 ms P-R-T Axes : 000 -45 089 degrees QTc Int : 493 ms Atrial fibrillation with rapid ventricular response Left anterior fascicular block Minimal voltage criteria for LVH, may be normal variant Abnormal ECG When compared with ECG of 05-MAR-2022 05:27, HR has increased Confirmed by Kurt Araujo ([id number]) on 03/07/2022 2:33:06 PM Referred By: REFERRED SELF Confirmed By:Kurt Araujo
--- NOTE | 2022-03-07 16:38 | Hospitalist Progress Note ---
Date of Service March 07, 2022 Assessment & Plan (1) Acute encephalopathy: Plan: Patient presented with worsening SOB, acute respiratory failure with hypoxia, and worsening ground-glass opacities on CT angiogram chest. Negative for PE. Hallucinations afternoon 03/04 after starting high dose steroids 40mg BID with listed allergy hallucinations on dexamethasone and being taken down for bronchoscopy and moved to telemetry 03/04 ABG with pH 7.5 -- had been hyperventilating and continues to pull off his oxygen. Repeat abg still alkalotic Ammonia wnl UA without evidence for infection CT head without evidence for acute CVA Monitoring ABG, alkalotic, likely from hyperventilation/agitation Became agitated/continued restlessness evening 03/05. Was to avoid antipsychotics given QTC but overnight team given Haldol 5mg, ativan 1mg and increased agitation/confusion this morning BiPAP shortly then 10-15L Oxymask, now titrated to 95% on 5L Oxymask Tx to ICU status, and placed on precedex gtt -- continue for now. Suspect compounding hospital delirium/medication/insomnia/infection playing role (also got dose ambien prior to the ativan/haldol) Discussed with ICU front end developer and no need for CTAP at this time given prior appendicitis and remains on ZOsyn Discontinued steroids (last dose 20:18 03/03) ICU given 100meq BiCarb DISCONTINUING BACTRIM 03/05 as could also be causing issue Titrating off precedex. Bronch is on hold. Once mental status improves, may consider atorvaquone Continue to monitor in ICU (2) Shortness of breath: Plan: Sputum cx heavy normal deep BCx NGTD COVID/flu/RSV negative Fungitell, Legionella, Mycoplasma all pending BNP not elevated titrating off precedez able to titrate to 5L Oxymask currently Monitor -- see above, Bactrim discontinued Remains on Zosyn, Fluconazole -- may need to make IV if unable to tolerate PO today due to AMS need 2 step (3) Acute respiratory failure with hypoxia: Plan: Secondary to pneumonia, now steroid induced/medication induced encephalopathy Continue supplemental O2 to keep pulse ox greater than 90% (4) Cryptococcal pneumonitis: Plan: Continue fluconazole 400 mg p.o. once daily -- may need to make PO as on precedex Holding chemotherapy for the last 2 months (5) Diarrhea: Plan: Has had 8 nonbloody loose stools in the last 24 hours prior to admission No antibiotics last month except for fluconazole stool panel PCR negative No abdominal pains-no need for further imaging at this time however noted prior admit for appendicitis tx w/ abx No further diarrhea No need for CTAP per front end developer discussion this AM (6) History of pulmonary embolism: Plan: Lovenox resumed as no bronch given encephalopathy Follows with anticoagulation clinic Previously on Coumadin but has been held while he is on fluconazole and they had been utilizing Lovenox (7) (HFpEF) heart failure with preserved ejection fraction: Plan: No acute issues, does not appear hypervolemic but BNP slightly elevated CXR with improvement, no increase in LE edema remains on lasix 20mg daily when able to take Monitor (8) Light chain myeloma: Plan: Follows with oncology at [facility] Holding all home chemotherapy due to recent infection -- tacrolimus level low Still takes dexamethasone once a week on but using prednisone as above despite being listed as an allergy --d/c for now given above Continue suppressive acyclovir 400 mg p.o. twice daily -- again, may need to make IV if not taking PO (9) Hypokalemia: Plan: Secondary to poor p.o. intake and GI losses 3.6 on repeat, mag wnl Monitor (10) Thrombocytopenia: Plan: Stable Likely secondary to acute illness Follow CBC (11) Anemia: Plan: Mild and at baseline Follow CBC Normocytic but was macrocytic. Patient does have hx myeloma though Did check B12 given gait/memory --> LOW 162 AND IM REPLACEMENT ORDERED INPATIENT, PO AT DISCHARGE REC'D (12) BPH loc w urin obs/LUTS: Plan: No acute issues Bladder scan as needed Continue home dutasteride (13) GERD (gastroesophageal reflux disease): Plan: Continue home PPI, increased to BID while on steroids mag replaced and repeat wnl (14) Osteoporosis 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: (15) Depression: Plan: Continue home Celexa -- on hold currently on precedex (16) Calculus of kidney: Plan: With a history of uric acid stones, follows with urology Continue home Urocit-K and allopurinol (17) B12 deficiency: Plan: checked, low replacement ordered should also help with anemia Plan: continued inpatient stay, ICU status on precedex gtt currently Admission and Anticipated Discharge Date Admission Date: March 01, 2022 Subjective 76 yo m appears more calm. Patient does answer questions but he is not oriented to place. Patient does not have any complaints except for trying to pee. Review of Systems Review of Systems: All systems reviewed & are unremarkable except as noted in HPI & below Physical Exam Physical Exam: General: restless, agitated, tachypneic/hyperventilating, +hallucinations, mild respiratory distress, not cooperative with exam HEENT: head atraumatic, normocephalic, pupils equal/reactive, slightly dry mm, trachea midline irritation under eyes from Oxymask rubbing Resp: taachypneic CV: RRR, no m/r/g, no calf edema GI:+BS, soft/nontender : no munoz MSK/Neuro: CALM, moving all extremities, no focal motor deficit, but unable to participate in exam, no facial droop Psych: alert this morning but not oriented to place/time Results & Data Results & Data ([facility]) Vital Signs (Past 12 Hours) Vital Signs Pulse Pulse Resp BP BP Pulse Ox 03/07/22 15:09 87 19 121/87 90 03/07/22 08:20 62 26 H 95 03/07/22 08:10 67 34 H 98 03/07/22 08:00 63 27 H 91/60 L 96 03/07/22 07:50 64 21 89 L 03/07/22 07:40 68 19 93 03/07/22 07:30 68 20 93 03/07/22 07:20 60 29 H 95 03/07/22 07:10 63 28 H 96 03/07/22 07:01 66 28 H 93/64 L 96 03/07/22 07:00 62 26 H 95 03/07/22 06:50 64 29 H 96 03/07/22 06:40 71 29 H 95 03/07/22 06:30 69 31 H 94 03/07/22 06:20 74 21 94 03/07/22 06:15 68 29 H 98/63 L 94 03/07/22 06:10 66 29 H 91 03/07/22 06:00 67 30 H 98/73 L 94 03/07/22 05:50 69 31 H 94 03/07/22 05:40 68 34 H 94 03/07/22 05:30 70 31 H 94 03/07/22 05:20 69 30 H 96 03/07/22 05:10 74 27 H 93 03/07/22 05:03 71 30 H 100/55 L 94 03/07/22 05:00 67 24 93 03/07/22 04:50 67 28 H 94 03/07/22 04:40 67 30 H 97 PG Care Time/CCT Total # of Minutes Spent Total Time Spent with Patient: Total time spent is greater than 50% in coordination of care (as documented) at patient's floor/unit and/or counseling patient: Coding Level of Care Code 06673 Subseq Hosp Care Lvl 3 Diagnoses Acute encephalopathy G93.40 Shortness of breath R06.02 Acute respiratory failure with hypoxia J96.01 Cryptococcal pneumonitis B45.0 Diarrhea R19.7 History of pulmonary embolism Z86.711 (HFpEF) heart failure with preserved ejection fraction I50.30 Light chain myeloma C90.00 Hypokalemia E87.6 Thrombocytopenia D69.6 Anemia D64.9 BPH loc w urin obs/LUTS N40.1 GERD (gastroesophageal reflux disease) K21.9 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
[2022-03-07] MEDS: MELATONIN 3 MG TAB PO SCH (20:17)
[2022-03-08] MEDS: dexMEDEtomidine 400 MCG/100 ML BAG IV SCH ×2 (04:01→20:47)
[2022-03-08 06:01] LABS: Hematocrit (blood only) 31.1 % (42-52); Hemoglobin 10.5 g/dL (14.0-18.0); Mean Corpuscular Hemoglobin 33.5 pg (25-34); Mean Corpuscular Hgb Conc 33.8 g/dL (32-36); Mean Corpuscular Volume 99.4 fL (80-100); RDW Coefficient of Variation 17.5 % (11.5-14.5); RDW Standard Deviation 63.5 fL (36.4-46.3); Red Blood Count 3.13 M/uL (4.7-6.1); White Blood Count 5.59 K/uL (4.8-10.8)
[2022-03-08 06:07] LABS: Mean Platelet Volume 10.4 fL (7.4-10.4); Platelet Count 93 K/uL (130-400)
[2022-03-08 06:18] LABS: Eosinophils # (auto) 0.09 K/uL (0-0.5); Eosinophils % (auto) 1.6 %; Immature Granulocytes # (auto) 0.04 K/uL (0.00-0.02); Immature Granulocytes % (auto) 0.7 %; Lymphocytes # (auto) 0.16 K/uL (1.2-3.4); Lymphocytes % (auto) 2.9 %; Monocytes # (auto) 0.07 K/uL (0.11-0.59); Monocytes % (auto) 1.3 %; Neutrophils # (auto) 5.23 K/uL (1.4-6.5); Neutrophils % (auto) 93.5 %
[2022-03-08] MEDS: PIPERACILLIN/TAZOBACTAM 3.375 GM in DEXTROSE 5% 100 ML IV SCH ×3 (06:28→21:31)
[2022-03-08 06:43] LABS: BUN Creatinine Ratio 20.7 (10-20); Calcium 7.8 mg/dl (8.5-10.1); Creatinine Clr Calc Pharmacy 81.5 ml/min; Est GFR (African American) 97.2 ml/min; Est GFR (Non-African American) 83.8 ml/min; Magnesium 2.1 mg/dl (1.7-2.4); Phosphorus 3.2 mg/dl (2.5-4.9); Potassium 3.5 mmol/L (3.5-5.1)
--- NOTE | 2022-03-08 07:49 | Electrocardiogram Report ---
Test Reason : Blood Pressure : / mmHG Vent. Rate : 115 BPM Atrial Rate : 115 BPM P-R Int : 142 ms QRS Dur : 086 ms QT Int : 364 ms P-R-T Axes : 032 -36 039 degrees QTc Int : 503 ms Sinus tachycardia with Premature atrial complexes Left axis deviation Minimal voltage criteria for LVH, may be normal variant Nonspecific ST and T wave abnormality Abnormal ECG When compared with ECG of 05-MAR-2022 23:05, (unconfirmed) HR has decreased Nonspecific T wave abnormality has replaced inverted T waves in Lateral leads Confirmed by Kurt Araujo ([id number]) on 03/08/2022 7:49:23 AM Referred By: REFERRED SELF Confirmed By:Kurt Araujo
[2022-03-08] MEDS: POTASSIUM CHLORIDE / WTR 10 MEQ/100 ML PLCT IV SCH ×4 (08:29→11:31)
[2022-03-08] MEDS: FLUCONAZOLE 100 MG TAB PO SCH (08:29)
[2022-03-08] MEDS: POTASSIUM CITRATE 10 MEQ TAB PO SCH ×2 (08:29→20:06)
[2022-03-08] MEDS: ACYCLOVIR 400 MG TAB PO SCH ×2 (08:30→20:08)
[2022-03-08] MEDS: FLUTICASONE/VILANTEROL 200/25MCG 14 PUFFS/INHALER INH SCH (08:30)
[2022-03-08] MEDS: ENOXAPARIN 100 MG/1ML SYR SQ SCH ×2 (08:30→20:08)
[2022-03-08] MEDS: allopurinoL 100 MG TAB PO SCH ×2 (08:30→20:06)
[2022-03-08] MEDS: DUTASTERIDE 0.5MG PO SCH (08:30)
[2022-03-08] MEDS: DOCUSATE SODIUM/SENNA 50/8.6MG TAB PO SCH (08:33)
[2022-03-08] MEDS: PANTOprazole 40 MG in SYRINGE 0 ML IV SCH ×2 (08:33→20:06)
[2022-03-08] MEDS ORDERED: predniSONE 10 MG TABLET PO SCH (09:00)
--- NOTE | 2022-03-08 11:03 | Critical Care Progress Note ---
Date of Service March 08, 2022 Assessment & Plan (1) Acute respiratory failure with hypoxia: (2) Abnormal chest CT: (3) Multiple myeloma: Plan: CT chest 03/01/2022 personally reviewed: Diffuse groundglass opacities appreciated bilaterally especially in the left upper and left lower lobe Right upper lobe consolidative process in the apex (improved compared to 12/2021) No significant mediastinal lymphadenopathy -- Acute hypoxic respiratory failure with diffuse groundglass opacities bilaterally Patient had this finding dating back to December 2021 As per the chart he has been being treated with fluconazole for possible cryptococcus pneumonia since approximately a month Patient did have dense consolidative process in the right upper lobe which has improved compared to December. Cryptococcal pneumonia usually gives dense consolidative process. Groundglass opacities appreciated bilaterally unlikely to be from cryptococcus Differential for it includes infectious versus noninfectious Infectious includes PJP given the patient is immunocompromised, viral infection can also present this result already on acyclovir prophylactically Noninfectious etiology includes autoimmune pneumonitis, drug-induced pneumonitis as well as diffuse alveolar hemorrhage Given patient's hemoglobin has been stable since December and is not having any significant hemoptysis I doubt this is diffuse alveolar hemorrhage PJP treatment started 03/02/2022 LDH 237 CRP 11.11, procalcitonin negative Nasal MRSA negative BNP 138 Follow-up LUIS with reflex, Fungitell -- Acute metabolic encephalopathy Multifactorial Patient does have history of agitation/hallucinations from dexamethasone Prednisone has been stopped since 03/03/2022 Patient was started on Bactrim for possible PJP, Bactrim sometimes has been ass ociated with hallucinations as well CT head 03/04/2022 negative Ammonia within normal limit -- Sinus tachycardia--> resolved Likely from underlying agitation He was started on diltiazem overnight as one of the EKG seem to be A. fib RVR, it seems more sinus with PACs We will DC diltiazem --Normal anion gap metabolic acidosis I will order lactate as well as urine ketones -- Hyponatremia Bactrim has been associated with hyponatremia -- Thrombocytopenia Likely from underlying infection/sepsis No active signs of bleeding Continue to monitor --Prophylaxis VTE: Lovenox therapeutic GI: Protonix Lines: Peripheral left-sided port Diet: Cardiorenal diet Plan: In/out: -492, urine output 1350 Patient is tolerating diet. Change Lasix to p.o. again. Potassium being replaced. Try to titrate off Precedex Once the patient mental status improved I will try to see if we can give him atovaquone instead Cannot give steroids given the significant hallucinations from prednisone Try to titrate off Precedex For the time being bronchoscopy is put on hold. I have personally spent 36 minutes of critical care time in the direct management of this patient. This is a life/limb threatening event. This includes time spent evaluating patient, direct bedside care, chart review, placing orders, interpretation of diagnostic studies, discussion with consultants, patient, and family members, as well as other required patient management activities. This time is exclusive of all separately billable procedures, and teaching time and separate from and in addition to any other critical care service time. Please note the above document was generated using voice recognition software. It may contain grammatical, syntax or spelling errors. Admission and Anticipated Discharge Date Admission Date: March 01, 2022 Subjective Patient seen and examined at bedside. No acute distress. Late last evening patient did get little bit restless and he was restarted on Precedex. With time of examination he was on 1.5 Precedex. He was very calm and composed Answering all the questions appropriately. Denied any headache, no chest pain, shortness of breath is improving. Has been afebrile. He was saturating 95% 2 L nasal cannula. Review of Systems Review of Systems: All systems reviewed & are unremarkable except as noted in Subjective Physical Exam Physical Exam: Constitutional: No acute distress HEENT: EOMI, PERRLA Respiratory system: Decreased air entry bilaterally, positive crackles appreciated bilaterally more on the left side, no wheeze, no rhonchi CVS: S1-S2 positive, no murmurs or gallops Abdomen: Soft, nontender, nondistended, positive bowel sounds x4, obese Extremities: +2 pulses bilaterally radialis/ dorsalis pedis, no cyanosis, +1 pitting edema bilateral lower extremity Neuro: Awake alert oriented to self and place Psych: Normal mood and affect G/U: No Gonzalez Skin: no rashes, warm and dry Lymphatic: no cervical or axillary lymphadenopathy Results & Data Results & Data ([facility]) Vital Signs (Past 12 Hours) Vital Signs Temp Pulse Resp BP Pulse Ox 03/08/22 08:50 87 31 H 97 03/08/22 08:40 90 19 92 03/08/22 08:30 96 H 35 H 96 03/08/22 08:20 92 H 35 H 96 03/08/22 08:10 93 H 34 H 96 03/08/22 08:00 37.2 C 89 32 H 115/63 96 03/08/22 07:50 91 H 35 H 96 03/08/22 07:40 90 26 H 96 03/08/22 07:30 88 27 H 97 03/08/22 07:20 87 33 H 98 03/08/22 07:10 84 31 H 96 03/08/22 07:06 85 33 H 112/80 96 03/08/22 07:00 86 30 H 72 L 03/08/22 06:50 88 34 H 85 L 03/08/22 06:40 88 35 H 87 L 03/08/22 06:30 87 25 H 93 05 06:20 85 33 H 92 03/08/22 06:10 83 26 H 92 03/08/22 06:00 82 32 H 114/79 90 06 05:00 84 29 H 96 03/08/22 04:32 36.7 C 05 04:10 83 31 H 99 03/08/22 04:00 83 32 H 105/78 87 L 03/08/22 03:50 79 32 H 96 03/08/22 03:40 82 29 H 88 L 03/08/22 03:30 77 33 H 96 03/08/22 03:20 84 28 H 95 05 03:10 81 27 H 94 03/08/22 03:00 78 33 H 112/80 05 02:50 87 34 H 87 L 05 02:40 77 29 H 93 05 02:30 81 35 H 92 03/08/22 02:20 83 34 H 94 05 02:10 82 29 H 97 0605 02:00 80 33 H 112/70 96 03/08/22 01:50 79 31 H 96 03/08/22 01:40 82 31 H 99 03/08/22 01:30 83 28 H 91 03/08/22 01:20 84 27 H 92 03/08/22 01:10 84 31 H 93 05 01:00 81 31 H 110/73 93 03/08/22 00:50 79 30 H 96 03/08/22 00:40 82 30 H 94 03/08/22 00:30 83 33 H 94 03/08/22 00:20 84 32 H 93 03/08/22 00:10 86 32 H 93 03/08/22 00:00 37.1 C 83 32 H 119/76 92 03/07/22 23:50 81 32 H 93 03/07/22 23:40 86 32 H 94 03/07/22 23:30 83 32 H 92 03/07/22 23:20 86 34 H 93 03/07/22 23:10 85 32 H 93 03/07/22 23:00 87 32 H 110/73 96 Laboratory Results 03/08/22 05:32 03/08/22 05:32 Coding Level of Care Code Critical Care 1st 30-74 mins Diagnoses Acute respiratory failure with hypoxia J96.[address] R93.89 Multiple myeloma C90.00 Time Spent (min) 36
[2022-03-08] MEDS: FUROSEMIDE 20 MG TAB PO SCH (12:04)
[2022-03-08] MEDS: FUROSEMIDE INJ 20 MG/2 ML VIAL IV SCH (12:06)
--- NOTE | 2022-03-08 15:01 | Hospitalist Progress Note ---
Date of Service March 08, 2022 Assessment & Plan (1) Acute encephalopathy: Plan: Patient presented with worsening SOB, acute respiratory failure with hypoxia, and worsening ground-glass opacities on CT angiogram chest. Negative for PE. Hallucinations afternoon 03/04 after starting high dose steroids 40mg BID with listed allergy hallucinations on dexamethasone and being taken down for bronchoscopy and moved to telemetry 03/04 ABG with pH 7.5 -- had been hyperventilating and continues to pull off his oxygen. Repeat abg still alkalotic Ammonia wnl UA without evidence for infection CT head without evidence for acute CVA Monitoring ABG, alkalotic, likely from hyperventilation/agitation Became agitated/continued restlessness evening 03/05. Was to avoid antipsychotics given QTC but overnight team given Haldol 5mg, ativan 1mg and increased agitation/confusion this morning BiPAP shortly then 10-15L Oxymask, now titrated to 95% on 5L Oxymask Tx to ICU status, and placed on precedex gtt -- continue for now. Suspect compounding hospital delirium/medication/insomnia/infection playing role (also got dose ambien prior to the ativan/haldol) Discussed with ICU band shover and no need for CTAP at this time given prior appendicitis and remains on ZOsyn Discontinued steroids (last dose 20:18 03/03) ICU given 100meq BiCarb DISCONTINUING BACTRIM 03/05 as could also be causing issue Now off precedex. Bronch is on hold. Once mental status improves, may consider atorvaquone Continue to monitor in ICU (2) Shortness of breath: Plan: Sputum cx heavy normal deep BCx NGTD COVID/flu/RSV negative Fungitell, Legionella, Mycoplasma all pending BNP not elevated titrating off precedez able to titrate to 5L Oxymask currently Monitor -- see above, Bactrim discontinued Remains on Zosyn, Fluconazole -- may need to make IV if unable to tolerate PO today due to AMS need 2 step (3) Acute respiratory failure with hypoxia: Plan: Secondary to pneumonia, now steroid induced/medication induced encephalopathy Continue supplemental O2 to keep pulse ox greater than 90% (4) Cryptococcal pneumonitis: Plan: Continue fluconazole 400 mg p.o. once daily -- may need to make PO as on precedex Holding chemotherapy for the last 2 months (5) Diarrhea: Plan: Has had 8 nonbloody loose stools in the last 24 hours prior to admission No antibiotics last month except for fluconazole stool panel PCR negative No abdominal pains-no need for further imaging at this time however noted prior admit for appendicitis tx w/ abx No further diarrhea No need for CTAP per band shover discussion this AM (6) History of pulmonary embolism: Plan: Lovenox resumed as no bronch given encephalopathy Follows with anticoagulation clinic Previously on Coumadin but has been held while he is on fluconazole and they had been utilizing Lovenox (7) (HFpEF) heart failure with preserved ejection fraction: Plan: No acute issues, does not appear hypervolemic but BNP slightly elevated CXR with improvement, no increase in LE edema remains on lasix 20mg daily when able to take Monitor (8) Light chain myeloma: Plan: Follows with oncology [facility] Holding all home chemotherapy due to recent infection -- tacrolimus level low Still takes dexamethasone once a week on but using prednisone as above despite being listed as an allergy --d/c for now given above Continue suppressive acyclovir 400 mg p.o. twice daily -- again, may need to make IV if not taking PO (9) Hypokalemia: Plan: Secondary to poor p.o. intake and GI losses 3.6 on repeat, mag wnl Monitor (10) Thrombocytopenia: Plan: Stable Likely secondary to acute illness Follow CBC (11) Anemia: Plan: Mild and at baseline Follow CBC Normocytic but was macrocytic. 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 Review of Systems Review of Systems: All systems reviewed & are unremarkable except as noted in HPI & below Physical Exam Physical Exam: General: calm, tachypneic/hyperventilating, +hallucinations, mild respiratory distress, not cooperative with exam HEENT: head atraumatic, normocephalic, pupils equal/reactive, slightly dry mm, trachea midline irritation under eyes from Oxymask rubbing Resp: taachypneic CV: RRR, no m/r/g, no calf edema GI:+BS, soft/nontender : no munoz MSK/Neuro: CALM, moving all extremities, no focal motor deficit, but unable to participate in exam, no facial droop Psych: alert this morning but not oriented to place/time Results & Data Results & Data ([facility]) Vital Signs (Past 12 Hours) Vital Signs Temp Pulse Resp BP Pulse Ox 03/08/22 08:50 87 31 H 97 03/08/22 08:40 90 19 92 03/08/22 08:30 96 H 35 H 96 03/08/22 08:20 92 H 35 H 96 03/08/22 08:10 93 H 34 H 96 03/08/22 08:00 37.2 C 89 32 H 115/63 96 03/08/22 07:50 91 H 35 H 96 03/08/22 07:40 90 26 H 96 03/08/22 07:30 88 27 H 97 03/08/22 07:20 87 33 H 98 03/08/22 07:10 84 31 H 96 03/08/22 07:06 85 33 H 112/80 96 03/08/22 07:00 86 30 H 72 L 03/08/22 06:50 88 34 H 85 L 03/08/22 06:40 88 35 H 87 L 03/08/22 06:30 87 25 H 93 03/08/22 06:20 85 33 H 92 03/08/22 06:10 83 26 H 92 03/08/22 06:00 82 32 H 114/79 90 03/08/22 05:00 84 29 H 96 03/08/22 04:32 36.7 C 03/08/22 04:10 83 31 H 99 03/08/22 04:00 83 32 H 105/78 87 L 03/08/22 03:50 79 32 H 96 03/08/22 03:40 82 29 H 88 L 03/08/22 03:30 77 33 H 96 03/08/22 03:20 84 28 H 95 03/08/22 03:10 81 27 H 94 PG Care Time/CCT Total # of Minutes Spent Total Time Spent with Patient: Total time spent is greater than 50% in coordination of care (as documented) at patient's floor/unit and/or counseling patient: Coding Level of Care Code 66272 Subseq Hosp Care Lvl 2 Diagnoses Acute encephalopathy G93.40 Shortness of breath R06.02 Acute respiratory failure with hypoxia J96.01 Cryptococcal pneumonitis B45.0 Diarrhea R19.7 History of pulmonary embolism Z86.711 (HFpEF) heart failure with preserved ejection fraction I50.30 Light chain myeloma C90.00 Hypokalemia E87.6 Thrombocytopenia D69.6 Anemia D64.9 BPH loc w urin obs/LUTS N40.1 GERD (gastroesophageal reflux disease) K21.9 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
[2022-03-08] MEDS ORDERED: LOPERAMIDE HCL 2 MG CAP PO PRN (16:23)
[2022-03-08] MEDS: METOPROLOL TARTRATE 25 MG TAB PO SCH (17:12)
[2022-03-08] MEDS: MELATONIN 3 MG TAB PO SCH (20:06)
[2022-03-09] MEDS: dexMEDEtomidine 400 MCG/100 ML BAG IV SCH ×2 (01:13→07:36)
[2022-03-09 05:57] LABS: Hematocrit (blood only) 32.1 % (42-52); Hemoglobin 10.7 g/dL (14.0-18.0); Mean Corpuscular Hemoglobin 32.7 pg (25-34); Mean Corpuscular Hgb Conc 33.3 g/dL (32-36); Mean Corpuscular Volume 98.2 fL (80-100); RDW Coefficient of Variation 17.5 % (11.5-14.5); RDW Standard Deviation 63.5 fL (36.4-46.3); Red Blood Count 3.27 M/uL (4.7-6.1); White Blood Count 5.91 K/uL (4.8-10.8)
[2022-03-09 06:09] LABS: Mean Platelet Volume 10.5 fL (7.4-10.4); Platelet Count 91 K/uL (130-400)
[2022-03-09] MEDS: METOPROLOL TARTRATE 25 MG TAB PO SCH ×2 (06:13→17:41)
[2022-03-09 06:17] LABS: Basophils # (auto) 0.01 K/uL (0-0.2); Basophils % (auto) 0.2 %; Eosinophils # (auto) 0.06 K/uL (0-0.5); Immature Granulocytes # (auto) 0.05 K/uL (0.00-0.02); Immature Granulocytes % (auto) 0.8 %; Lymphocytes # (auto) 0.17 K/uL (1.2-3.4); Lymphocytes % (auto) 2.9 %; Monocytes # (auto) 0.11 K/uL (0.11-0.59); Monocytes % (auto) 1.9 %; Neutrophils # (auto) 5.51 K/uL (1.4-6.5); Neutrophils % (auto) 93.2 %
[2022-03-09 06:29] LABS: BUN Creatinine Ratio 17.1 (10-20); Creatinine Clr Calc Pharmacy 92.7 ml/min; Est GFR (African American) 106.2 ml/min; Est GFR (Non-African American) 91.7 ml/min; Magnesium 1.5 mg/dl (1.7-2.4); Phosphorus 2.9 mg/dl (2.5-4.9); Potassium 3.9 mmol/L (3.5-5.1)
[2022-03-09] MEDS: MAGNESIUM SULFATE / D5W 1 GM/100 ML BAG IV SCH ×3 (07:34→10:55)
--- NOTE | 2022-03-09 08:15 | XRay Report ---
XR chest 1V portable HISTORY: 76 years-old Male f/u follow-up study in a patient with pulmonary opacities COMPARISON: Chest radiograph 03/07/2022 TECHNIQUE: Portable AP view of the chest FINDINGS: 1 leads are coiled over the chest. Unchanged positioning of the left-sided [id number] catheter. Mo derate cardiomegaly. Reticular interstitial opacities with left greater than right alveolar densities have mildly improved from the prior study. There is no pneumothorax. Questioned trace pleural effusi ons. Degenerative changes of the shoulders and spine. IMPRESSION: Cardiomegaly with mildly improved aeration of the lungs. ACT 112: Negative or not required by law. The above report was generated using voice recognition software. It may contain grammatical, syntax o r spelling errors. Electronically signed by: Salty Barros M.D. 03/09/2022 8:14 AM
--- NOTE | 2022-03-09 08:34 | Critical Care Progress Note ---
Date of Service March 09, 2022 Assessment & Plan (1) Acute respiratory failure with hypoxia: (2) Abnormal chest CT: (3) Multiple myeloma: Plan: Impression: 76-year-old male with a history of multiple myeloma status post autologous peripheral stem cell transplant 2017 treated in the outpatient setting with daratumumab, pomalidomide and desamethasone admitted 03/01/2022 with hypoxemic respiratory failure and diffuse pulmonary infiltrates. The patient had reportedly undergone bronchoscopy in the past and had been being treated in the outpatient setting for cryptococcal pneumonia. There was concern about potential PJP and the patient was initiated on Bactrim and prednisone. He developed metabolic encephalopathy and bronchoscopy was put on hold. He eventually required transfer to the ICU for metabolic encephalopathy. 24-hour events: Precedex reinstituted. The patient's oxygen requirement was stable. He is hemodynamically stable. Recommendations: 1. Neurologic: Metabolic encephalopathy likely exacerbated by underlying steroids. May benefit from low-dose antipsychotic if QTC could tolerate. Continue to avoid other medications which could potentially exacerbate delirium. Steroids been discontinued as they were felt to be contributory to the pat ient's encephalopathy. We will need to see how he does and pursue a definitive diagnosis to determine whether or not risks of additional steroids are justified. No evidence of cryptococcal meningitis on LP. 2. Cardiovascular: Hemodynamically stable. No current issues. Continue metoprolol and lasix. 3. Pulmonary: Unclear etiology. Infectious inflammatory and drug-induced toxicities would all be on the differential. Outpatient bronchoscopy 01/2022 demonstrated cryptococcus. CSF cryptococcal AG was negative. We will recheck serum cryptococcal antigen. Currently on acyclovir and Diflucan (outpt medications). Was on Bactrim but now held. His CT scan does show improvement compared to CT scan back in December. Recommend repeat bronchoscopy with BAL. Unfortunately the patient ate breakfast this morning so this will have to be delayed until later today or tomorrow. 4. GI: Diarrhea now resolved. Continue to follow clinically. Bio fire negative 5. Renal: BPH: Continue outpatient medications. Mild hyponatremia. Correcting potassium. Serum creatinine stable. Initiate ICU electrolyte replacement protocol. 6. ID: Patient received 1 dose of vancomycin and completed 8 days of Zosyn. He is day 8 of acyclovir and day 7 of fluconazole (chronic outpatient medications). He received Bactrim from 03/02/22-03/05/22. If cryptococcal PNA confirmed, recommend ID consultation. Fungitel pending. 7. Endocrine: Glycemic control per protocol. 8. Heme-onc: Patient is anemic with mild thrombocytopenia. Daratumumab is associated with cough, hypersensitivity reactions usually with fever, skin, throat, or airway involvement as well as respiratory tract infections. Pomalidomide may be associated with interstitial lung disease including ARDS eosinophilic pneumonia and pulmonary fibrosis. No eosinophilia but patient was on steroids. Lines: Peripheral left-sided port Diet: NPO for bronchoscopy next 24 hours. I have personally spent 36 minutes of critical care time in the direct management of this patient. This is a life/limb threatening event. This includes time spent evaluating patient, direct bedside care, chart review, placing orders, interpretation of diagnostic studies, discussion with consultants, patient, and family members, as well as other required patient management activities. This time is exclusive of all separately billable procedures, and teaching time and separate from and in addition to any other critical care service time. Please note the above document was generated using voice recognition software. It may contain grammatical, syntax or spelling errors. Admission and Anticipated Discharge Date Admission Date: March 01, 2022 Subjective Patient seen and examined. EMR reviewed. Discussed with off going addiction treatment counselor and with critical care ABHI from overnight. Discussed with bedside critical care nurse and patient at bedside. The patient required reinstitution of Precedex last evening due to agitation. He been weaned off in the afternoon. He is devoid of any respiratory complaints currently. He tolerated a diet this morning. No chest pain or palpitations. Review of Systems Review of Systems: Unobtainable due to cognitive status Physical Exam Constitutional: WD/WN, vitals as above Neck: trachea midline, no thyromegaly Respiratory: normal respiratory effort, lungs clear to auscultation Cardiovascular: RRR, no murmur, no edema Gastrointestinal (Abdomen): normal bowel sounds, soft, nontender, no hepatosplenomegaly Musculoskeletal: Extremities: extremities normal to inspection Skin: no rashes, warm and dry Neurologic: Nonfocal exam Lymphatic: no cervical lymphadenopathy Results & Data Results & Data ([facility]) Vital Signs (Past 12 Hours) Vital Signs Temp Pulse Pulse Resp BP BP Pulse Ox 03/09/22 08:00 73 24 96/70 L 95 03/09/22 07:00 36.6 C 67 25 H 94/63 L 97 03/09/22 06:10 71 24 98 03/09/22 06:00 75 22 121/76 97 03/09/22 05:50 71 23 96 03/09/22 05:40 77 27 H 97 03/09/22 05:30 70 29 H 97 03/09/22 05:20 97 03/09/22 05:10 96 03/09/22 05:00 68 11 L 120/67 97 03/09/22 04:50 36.5 C 69 95 03/09/22 04:40 71 22 96 03/09/22 04:30 70 27 H 97 03/09/22 04:20 70 29 H 97 03/09/22 04:10 75 27 H 98 03/09/22 04:00 72 24 115/67 98 03/09/22 03:50 71 28 H 97 03/09/22 03:40 72 30 H 97 03/09/22 03:30 74 25 H 96 03/09/22 03:20 80 28 H 98 03/09/22 03:10 71 26 H 96 03/09/22 03:00 73 27 H 93/70 L 98 03/09/22 02:50 71 30 H 98 03/09/22 02:40 73 25 H 98 03/09/22 02:30 70 27 H 98 03/09/22 02:20 70 27 H 97 03/09/22 02:10 71 26 H 97 03/09/22 02:00 68 28 H 99/64 L 98 03/09/22 01:50 75 32 H 98 03/09/22 01:40 72 27 H 87 L 03/09/22 01:30 70 29 H 94 03/09/22 01:20 74 29 H 87 L 03/09/22 01:10 74 18 91 03/09/22 01:00 72 28 H 106/67 94 03/09/22 00:50 73 23 89 L 06 00:40 74 28 H 92 03/09/22 00:30 74 21 95 03/09/22 00:20 72 20 95 03/09/22 00:10 73 21 93 03/09/22 00:00 74 33 H 91/63 L 96 03/08/22 23:50 81 23 83 L 03/08/22 23:40 81 25 H 93 03/08/22 23:30 79 34 H 91 03/08/22 23:20 82 27 H 95 03/08/22 23:10 71 27 H 88 L 03/08/22 23:00 36.8 C 80 84 30 H 104/74 104/74 93 03/08/22 22:21 36.6 C 25 H 146/90 H 95 03/08/22 22:00 86 24 95/64 L 90 03/08/22 21:00 90 24 107/59 L 95 Laboratory Results Blood hypersensitivity panel and IgE level from 03/06/2021 was normal. Urine Legionella antigen negative CSF cryptococcal antigen negative COVID-negative Influenza A and B- RSV negative Fungitell pending Serological evaluation pending Stool bio fire negative Serum LDH 474 Procalcitonin negative x2 Critical Care Results & Data Vital Signs (Past 12 Hours) Vital Signs Temp Pulse Pulse Resp BP BP Pulse Ox 03/09/22 08:00 73 24 96/70 L 95 03/09/22 07:00 36.6 C 67 25 H 94/63 L 97 03/09/22 06:10 71 24 98 03/09/22 06:00 75 22 121/76 97 03/09/22 05:50 71 23 96 03/09/22 05:40 77 27 H 97 03/09/22 05:30 70 29 H 97 03/09/22 05:20 97 03/09/22 05:10 96 03/09/22 05:00 68 11 L 120/67 97 03/09/22 04:50 36.5 C 69 95 03/09/22 04:40 71 22 96 03/09/22 04:30 70 27 H 97 03/09/22 04:20 70 29 H 97 03/09/22 04:10 75 27 H 98 03/09/22 04:00 72 24 115/67 98 03/09/22 03:50 71 28 H 97 03/09/22 03:40 72 30 H 97 03/09/22 03:30 74 25 H 96 03/09/22 03:20 80 28 H 98 03/09/22 03:10 71 26 H 96 03/09/22 03:00 73 27 H 93/70 L 98 03/09/22 02:50 71 30 H 98 03/09/22 02:40 73 25 H 98 03/09/22 02:30 70 27 H 98 06/06/22 02:20 70 27 H 97 03/09/22 02:10 71 26 H 97 03/09/22 02:00 68 28 H 99/64 L 98 03/09/22 01:50 75 32 H 98 03/09/22 01:40 72 27 H 87 L 03/09/22 01:30 70 29 H 94 03/09/22 01:20 74 29 H 87 L 03/09/22 01:10 74 18 91 03/09/22 01:00 72 28 H 106/67 94 03/09/22 00:50 73 23 89 L 03/09/22 00:40 74 28 H 92 03/09/22 00:30 74 21 95 03/09/22 00:20 72 20 95 03/09/22 00:10 73 21 93 03/09/22 00:00 74 33 H 91/63 L 96 03/08/22 23:50 81 23 83 L 03/08/22 23:40 81 25 H 93 03/08/22 23:30 79 34 H 91 03/08/22 23:20 82 27 H 95 03/08/22 23:10 71 27 H 88 L 03/08/22 23:00 36.8 C 80 84 30 H 104/74 104/74 93 03/08/22 22:21 36.6 C 25 H 146/90 H 95 03/08/22 22:00 86 24 95/64 L 90 03/08/22 21:00 90 24 107/59 L 95 Lab & Micro Results (Past 24 Hours) RBC 3.27 M/uL (4.7-6.1) L 03/09/22 WBC 5.91 K/uL (4.8-10.8) 03/09/22 Hgb 10.7 g/dL (14.0-18.0) L 03/09/22 Hct 32.1 % (42-52) L 03/09/22 MCV 98.2 fL (80-100) 03/09/22 MCH 32.7 pg (25-34) 03/09/22 MCHC 33.3 g/dL (32-36) 03/09/22 RDW Standard Deviation 63.5 fL (36.4-46.3) H 03/09/22 RDW Coefficient of Variation 17.5 % (11.5-14.5) H 03/09/22 Plt Count 91 K/uL (130-400) L 03/09/22 MPV 10.5 fL (7.4-10.4) H 03/09/22 Neutrophils (%) (Auto) 93.2 % 03/09/22 Lymphocytes (%) (Auto) 2.9 % 03/09/22 Monocytes # (Auto) 0.11 K/uL (0.11-0.59) 03/09/22 Eosinophils # (Auto) 0.06 K/uL (0-0.5) 03/09/22 Immature Granulocyte % (Auto) 0.8 % 03/09/22 Neutrophils # (Auto) 5.51 K/uL (1.4-6.5) 03/09/22 Lymphocytes # (Auto) 0.17 K/uL (1.2-3.4) L 03/09/22 Monocytes # (Auto) 0.11 K/uL (0.11-0.59) 03/09/22 Eosinophils # (Auto) 0.06 K/uL (0-0.5) 03/09/22 Basophils # (Auto) 0.01 K/uL (0-0.2) 03/09/22 Immature Granulocyte # (Auto) 0.05 K/uL (0.00-0.02) H 03/09/22 Na 135 mmol/L (136-145) L 03/09/22 K 3.9 mmol/L (3.5-5.1) 03/09/22 Cl 105 mmol/L (98-107) 03/09/22 CO2 22 mmol/L (21-32) 03/09/22 Anion Gap 8 (3-11) 03/09/22 BUN 12 mg/dl (6-23) 03/09/22 Creatinine 0.70 mg/dl (0.6-1.4) 03/09/22 Estimated GFR ( Amer) 106.2 ml/min 03/09/22 Estimated GFR (Non-Af Amer) 91.7 ml/min 03/09/22 BUN/Creatinine Ratio 17.1 (10-20) 03/09/22 Glu 118 mg/dl (70-99(Fasting)) H 03/09/22 Ca 8.0 mg/dl (8.5-10.1) L 03/09/22 Phosphorus Level 2.9 mg/dl (2.5-4.9) 03/09/22 Mg 1.5 mg/dl (1.7-2.4) L 03/09/22 05:30 03/09/22 Calcium Level 8.0 mg/dl (8.5-10.1) L 03/09/22 05:30 03/09/22 Diagnostic Findings (Past 24 Hours) Chest X-Ray 03/09/22 07:00 XR chest 1V portable HISTORY: 76 years-old Male f/u follow-up study in a patient with pulmonary opacities COMPARISON: Chest radiograph 03/07/2022 TECHNIQUE: Portable AP view of the chest FINDINGS: 1 leads are coiled over the chest. Unchanged positioning of the left-sided [id number]-o-Xuxb catheter. Moderate cardiomegaly. Reticular interstitial opacities with left greater than right alveolar densities have mildly improved from the prior study. There is no pneumothorax. Questioned trace pleural effusions. Degenerative changes of the shoulders and spine. IMPRESSION: Cardiomegaly with mildly improved aeration of the lungs. ACT 112: Negative or not required by law. The above report was generated using voice recognition software. It may contain grammatical, syntax or spelling errors. Electronically signed by: Salty Barros M.D. 03/09/2022 8:14 AM I & O Totals 24 Hours 03/08/22 03/09/22 03/10/22 06:59 06:59 06:59 Intake Total 871.330 / 528.621 5910.705 / 1121.705 8.918 / 8.918 Output Total 1350 / 1350 400 / 400 Balance -478.670 / -478.670 721.705 / 721.705 8.918 / 8.918 Cumulative 03/01/22 14:31 thru 03/09/22 08:15 Intake Total 27014.290 Output Total 3860 Balance 6975.290 RT Ventilator Mngmt (Last Documented) Ventilator Ordered Settings Respiratory Rate 24 03/09/22 08:00 Fraction of Inspired Oxygen 35 03/09/22 00:00 Ventilator - PT Measurements Respiratory Rate 24 Coding Level of Care Code Critical Care 1st 30-74 mins Diagnoses Acute respiratory failure with hypoxia J96.[address] R93.89 Multiple myeloma C90.00
[2022-03-09] MEDS: DOCUSATE SODIUM/SENNA 50/8.6MG TAB PO SCH (08:40)
[2022-03-09] MEDS: ENOXAPARIN 100 MG/1ML SYR SQ SCH ×2 (08:58→19:51)
[2022-03-09] MEDS: ACYCLOVIR 400 MG TAB PO SCH ×2 (08:59→19:51)
[2022-03-09] MEDS: allopurinoL 100 MG TAB PO SCH ×2 (08:59→19:51)
[2022-03-09] MEDS: POTASSIUM CITRATE 10 MEQ TAB PO SCH ×2 (08:59→19:52)
[2022-03-09] MEDS: FUROSEMIDE 20 MG TAB PO SCH (09:04)
[2022-03-09] MEDS: DUTASTERIDE 0.5MG PO SCH (09:05)
[2022-03-09] MEDS: FLUCONAZOLE 100 MG TAB PO SCH (09:05)
[2022-03-09] MEDS: FLUTICASONE/VILANTEROL 200/25MCG 14 PUFFS/INHALER INH SCH (09:06)
[2022-03-09] MEDS: PANTOprazole 40 MG in SYRINGE 0 ML IV SCH (09:11)
--- NOTE | 2022-03-09 17:00 | Hospitalist Progress Note ---
Date of Service March 09, 2022 Assessment & Plan (1) Shortness of breath: Plan: Presents with worsening shortness of breath, acute respiratory failure with hypoxia, with worsening ground-glass opacities on CT angiogram chest. Negative for PE. -->Recent admission January 2022 for acute appendicitis treated with antibiotics/no surgery Currently being treated for cryptococcal pneumonia with over 1 month of fluconazole proBNP negative, making heart failure not likely Hypoxic into the 80s prior to admission, requiring supplemental O2 Suspect all secondary to pneumonia-he is immunocompromised due to history of myeloma on chemotherapy Abx: continue Zosyn, Vancomycin for PNA Continue home fluconazole for cryptococcus pneumonia (completed 1 month thus far) Records from [facility] requested Continue home inhalers, incentive spirometer Not on O2 at home -- will need two step prior to discharge Currently on 5L --> SpO2 96% and asked RN to titrate to maintain sat >90 Pulmonology consulted -- appreciate recommendations No role for steroids at this time -- was on decadron on , however steroids will be held WBC wnl, afebrile Continue to monitor Plan for bronch in am. (2) Acute respiratory failure with hypoxia: Plan: Secondary to pneumonia Continue supplemental O2 to keep pulse ox greater than 90% (3) Cryptococcal pneumonitis: Plan: Continue fluconazole 400 mg p.o. once daily Holding chemotherapy for the last 2 months (4) Diarrhea: Plan: Has had 8 nonbloody loose stools in the last 24 hours No antibiotics last month except for fluconazole -Added stool panel PCR, avoid Imodium use until proven no bacterial infection No abdominal pains-no need for further imaging at this time (5) History of pulmonary embolism: Plan: Continue Lovenox 1.5 mg/KG SQ once daily Follows with anticoagulation clinic Previously on Coumadin but has been held while he is on fluconazole and they had been utilzing lovenox (6) (HFpEF) heart failure with preserved ejection fraction: Plan: No acute issues, does not appear hypervolemic Continue home Lasix 20 Mg p.o. once daily Continue blood pressure control (7) Light chain myeloma: Plan: Follows with oncology at [facility] Holding all home chemotherapy due to recent infection Still takes dexamethasone once a week on Continue suppressive acyclovir 400 mg p.o. twice daily (8) Hypokalemia: Plan: Secondary to poor p.o. intake and GI losses Continue supplementation with potassium chloride 40 mEq p.o. [id number] BMP magnesium in the morning Replaced magnesium Repeat wnl (9) Thrombocytopenia: Plan: Mild at 117 Likely secondary to acute illness Follow CBC (10) Anemia: Plan: Mild and at baseline Follow CBC Normocytic but was macrocytic. 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 Review of Systems Review of Systems: Unobtainable due to cognitive status Physical Exam Physical Exam: General: calm, tachypneic/hyperventilating, +hallucinations, mild respiratory distress, not cooperative with exam HEENT: head atraumatic, normocephalic, pupils equal/reactive, slightly dry mm, trachea midline i Resp: taachypneic CV: RRR, no m/r/g, no calf edema GI:+BS, soft/nontender : no munoz MSK/Neuro: CALM, moving all extremities, no focal motor deficit, but unable to participate in exam, no facial droop Psych: alert this morning but not oriented to place/time Results & Data Results & Data ([facility]) Vital Signs (Past 12 Hours) Vital Signs Temp Pulse Resp BP Pulse Ox 03/09/22 16:00 93 H 25 H 138/87 96 03/09/22 15:50 98 H 24 97 03/09/22 15:40 94 H 17 98 03/09/22 15:30 96 H 21 98 03/09/22 15:20 91 H 25 H 97 03/09/22 15:10 89 20 59 L 03/09/22 15:00 93 H 19 131/89 98 03/09/22 14:50 88 28 H 99 03/09/22 14:40 86 29 H 94 03/09/22 14:30 87 23 90 03/09/22 14:20 87 22 94 03/09/22 14:10 91 H 24 98 03/09/22 14:00 86 29 H 120/68 99 03/09/22 13:50 90 18 71 L 03/09/22 13:40 96 03/09/22 13:30 116 H 97 03/09/22 13:20 82 97 03/09/22 13:10 83 96 03/09/22 13:00 85 106/70 96 03/09/22 12:50 85 79 L 03/09/22 12:40 84 15 88 L 03/09/22 12:30 84 23 95 03/09/22 12:20 87 27 H 95 03/09/22 12:10 83 21 100 03/09/22 12:00 36.5 C 85 30 H 115/65 85 L 03/09/22 11:50 82 23 90 03/09/22 11:40 109 H 24 90 03/09/22 11:30 67 15 93 03/09/22 11:20 79 20 96 03/09/22 11:10 78 20 95 03/09/22 11:00 74 26 H 101/60 96 03/09/22 10:00 72 24 94/64 L 92 03/09/22 09:00 76 27 H 92/65 L 95 03/09/22 08:00 73 24 96/70 L 95 03/09/22 07:00 36.6 C 67 25 H 94/63 L 97 03/09/22 06:10 71 24 98 03/09/22 06:00 75 22 121/76 97 03/09/22 05:50 71 23 96 03/09/22 05:40 77 27 H 97 03/09/22 05:30 70 29 H 97 03/09/22 05:20 97 03/09/22 05:10 96 PG Care Time/CCT Total # of Minutes Spent Total Time Spent with Patient: Total time spent is greater than 50% in coordination of care (as documented) at patient's floor/unit and/or counseling patient: Coding Level of Care Code 72587 Subseq Hosp Care Lvl 2 Diagnoses Shortness of breath R06.02 Acute respiratory failure with hypoxia J96.01 Cryptococcal pneumonitis B45.0 Diarrhea R19.7 History of pulmonary embolism Z86.711 (HFpEF) heart failure with preserved ejection fraction I50.30 Light chain myeloma C90.00 Hypokalemia E87.6 Thrombocytopenia D69.6 Anemia D64.9 BPH loc w urin obs/LUTS N40.1 GERD (gastroesophageal reflux disease) K21.9 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
[2022-03-09] MEDS: ICU ELECTROLYTE REPLACEMENT PROTOCOL SCH (19:07)
[2022-03-09] MEDS ORDERED: OLANZapine 10 MG/2.1 ML SDV IM STA (19:23)
[2022-03-09] MEDS ORDERED: ZOLPIDEM TARTRATE 5 MG TAB PO PRN (19:26)
[2022-03-09 20:26] LABS: Calcium 8.2 mg/dl (8.5-10.1); Creatinine Clr Calc Pharmacy 92.7 ml/min; Est GFR (African American) 106.2 ml/min; Est GFR (Non-African American) 91.7 ml/min; Magnesium 2.2 mg/dl (1.7-2.4); Potassium 3.8 mmol/L (3.5-5.1)
[2022-03-10] MEDS: POTASSIUM CHLORIDE / WTR 10 MEQ/100 ML PLCT IV SCH ×2 (03:49→05:36)
[2022-03-10] MEDS: dexMEDEtomidine 400 MCG/100 ML BAG IV SCH ×2 (04:16→18:30)
[2022-03-10 06:02] LABS: Basophils # (auto) 0.01 K/uL (0-0.2); Basophils % (auto) 0.1 %; Eosinophils # (auto) 0.06 K/uL (0-0.5); Eosinophils % (auto) 0.8 %; Hematocrit (blood only) 33.8 % (42-52); Hemoglobin 11.1 g/dL (14.0-18.0); Immature Granulocytes # (auto) 0.06 K/uL (0.00-0.02); Immature Granulocytes % (auto) 0.8 %; Lymphocytes # (auto) 0.22 K/uL (1.2-3.4); Lymphocytes % (auto) 2.9 %; Mean Corpuscular Hemoglobin 32.5 pg (25-34); Mean Corpuscular Hgb Conc 32.8 g/dL (32-36); Mean Corpuscular Volume 98.8 fL (80-100); Mean Platelet Volume 11.1 fL (7.4-10.4); Monocytes # (auto) 0.17 K/uL (0.11-0.59); Monocytes % (auto) 2.3 %; Neutrophils # (auto) 7.01 K/uL (1.4-6.5); Neutrophils % (auto) 93.1 %; Platelet Count 110 K/uL (130-400); RDW Coefficient of Variation 17.6 % (11.5-14.5); Red Blood Count 3.42 M/uL (4.7-6.1); White Blood Count 7.53 K/uL (4.8-10.8)
[2022-03-10 06:27] LABS: BUN Creatinine Ratio 16.9 (10-20); Calcium 8.3 mg/dl (8.5-10.1); Creatinine Clr Calc Pharmacy 91.4 ml/min; Est GFR (African American) 105.6 ml/min; Est GFR (Non-African American) 91.1 ml/min; Magnesium 2.1 mg/dl (1.7-2.4); Phosphorus 2.7 mg/dl (2.5-4.9); Potassium 4.3 mmol/L (3.5-5.1)
[2022-03-10] MEDS: METOPROLOL TARTRATE 25 MG TAB PO SCH ×2 (06:27→17:32)
[2022-03-10] MEDS: ICU ELECTROLYTE REPLACEMENT PROTOCOL SCH ×2 (06:29→18:29)
[2022-03-10] MEDS ORDERED: fentaNYL citrate 100 MCG/2 ML VIAL IV PRN (07:36)
[2022-03-10] MEDS ORDERED: MIDAZOLAM HCL 5 MG/ML 1 ML VIAL IV STA (07:37)
[2022-03-10] MEDS ORDERED: MIDAZOLAM HCL 5 MG/ML 1 ML VIAL ONE (07:41)
--- NOTE | 2022-03-10 08:12 | Procedure Note ---
Procedure Note Date of Service March 10, 2022 Note Procedure: Fiberoptic bronchoscopy Bronchoalveolar lavage Conscious sedation Provider: Robert Alvarez MD Consent: Signed by patient and timeout verified prior to procedure. Sedation start:745 Sedation end: 810 Conscious sedation: 100 mcg fentanyl, 4 mg Versed, topical lidocaine per RT protocol Indication: Abnormal CT scan Estimated blood loss: 3 mL Procedure: Patient was in the ICU. Consent was obtained verbally from the mary ent's yesterday. Appropriate radiographic studies had been reviewed prior to the procedure. Standard monitoring was applied. Oxygen was administered. After topical anesthesia of the airways per respiratory therapy protocol, the fiberoptic scope was advanced through the right nares. Oropharynx was unremarkable. Vocal cords were visualized and were normal in function and appearance. Topical anesthesia of the cords was achieved with instillation of lidocaine through the scope. Scope was then passed through the vocal cords. The trachea was midline. Main josias was sharp. Anesthesia of the lower airways was achieved with instillation of lidocaine through the scope. A sequential and systematic examination of the lower airways was conducted. The right-sided airways were normal in anatomic configuration and appearance without endobronchial lesion and the mucosa appeared slightly friable. Left-sided airways were widely patent with normal anatomic configuration and the mucosa a ppeared friable. After the inspection bronchoscopy was completed, the scope was wedged into the superior segment of the lingula. A BAL was performed with instillation of 3 aliquots of 60 cc saline. Return was cloudy but not bloody. The airways were friable with petechiae and small areas of bleeding associated with scope manipulation. The bronchoscope was then removed from the airways. The patient tolerated the procedure well without obvious complication. Patient was returned to the recovery room. Impression: 1. Normal inspection bronchoscopy. 2. Successful BAL superior segment of the lingula. Await microbiologic, cytologic, and chemical analysis. Coding CPT Codes Sedation/Anesthesia - Sedation/Anesthesia: 68563 Mod Sedation by the same physician;Init15 Min Child Age 5 & Up ([id number]) Sedation/Anesthesia - Sedation/Anesthesia: 72116 Mod Sedation by the same physician; Ea [id number] Minutes ([id number]) Pulmonary/Thoracic - Pulmonary and Thoracic: 85827 Dx bronchoscopy/BAL ([id number]) [facility] Procedure Codes (Charges) Pulmonary/Thoracic Procedure 1: Pulmonary and Thoracic: 06236 Dx bronchoscopy/BAL Sedation/Anesthesia Procedure 2: Sedation/Anesthesia: 48182 Mod Sedation by the same physician;Init15 Min Child Age 5 & Up Total Sedation Time (minutes): 18 Procedure 3: Sedation/Anesthesia: 61864 Mod Sedation by the same physician; Ea [id number] Minutes Total Sedation Time (minutes): 18
--- NOTE | 2022-03-10 08:31 | Critical Care Progress Note ---
Date of Service March 10, 2022 Assessment & Plan (1) Acute respiratory failure with hypoxia: (2) Abnormal chest CT: (3) Multiple myeloma: Plan: Impression: 76-year-old male with a history of multiple myeloma status post autologous peripheral stem cell transplant 2017 treated in the outpatient setting with daratumumab, pomalidomide and desamethasone admitted 03/01/2022 with hypoxemic respiratory failure and diffuse pulmonary infiltrates. The patient h ad reportedly undergone bronchoscopy in the past and had been being treated in the outpatient setting for cryptococcal pneumonia. There was concern about potential PJP and the patient was initiated on Bactrim and prednisone. He developed metabolic encephalopathy and bronchoscopy was put on hold. He eventually required transfer to the ICU for metabolic encephalopathy. 24-hour events: The patient developed increasing agitation yesterday. He had a paradoxical response to Ambien and did not respond favorably to Risperdal. Precedex had to be reinitiated. Completed bronchoscopy with BAL this morning. No evidence of pulmonary hemorrhage. He remains afebrile. Recommendations: 1. Neurologic: Metabolic encephalopathy likely exacerbated by underlying steroids. Cannot rule out potential cryptococcal meningeal involvement however the patient's been on appropriate therapy for over a month. If he has persistent issues, consideration for repeat LP might be appropriate however the patient's mental status appears to be waxing and waning. We will avoid nonbenzodiazepine hypnotics as the patient had a paradoxical reaction. Try low- dose Geodon and monitor QT interval. Holding SSRI 2. Cardiovascular: Hemodynamically stable. No current issues. Continue metoprolol and lasix. 3. Pulmonary: Pulmonary infiltrates of unclear etiology. Infectious inflammatory and drug-induced toxicities would all be on the differential. Outpatient bronchoscopy 01/2022 demonstrated cryptococcus. CSF cryptococcal AG was negative. Awaiting serum cryptococcal antigen. Currently on acyclovir and Diflucan (outpt medications). Bronchoscopy with BAL performed today. No evidence of pulmonary hemorrhage. Await microbiologic and cell count differ ential. Hold steroids currently. Wean oxygen as tolerated. 4. GI: Diarrhea now resolved. Continue to follow clinically. Bio fire negative 5. Renal: BPH: Continue outpatient medications. Mild hyponatremia. Correcting potassium. Serum creatinine stable. Initiate ICU electrolyte replacement protocol. 6. ID: Patient received 1 dose of vancomycin and completed 8 days of Zosyn. He is chronically on acyclovir and fluconazole. Will need at least 12 months of antifungal therapy for cryptococcal pneumonia. He received Bactrim from 03/02/22-03/05/22. If cryptococcal PNA confirmed, recommend ID consultation. Fungitel pending. 7. Endocrine: Glycemic control per protocol. 8. Heme-onc: Patient is anemic with mild thrombocytopenia. Daratumumab is associated with cough, hypersensitivity reactions usually with fever, skin, throat, or airway involvement as well as respiratory tract infections. Pomalidomide may be associated with interstitial lung disease including ARDS eosinophilic pneumonia and pulmonary fibrosis. No eosinophilia but patient was on steroids. Await BAL differential Lines: Peripheral left-sided port Diet: Can advance diet once recovered from bronchoscopy. Keep in ICU until we can wean the patient off of parenteral drips. I have personally spent 40 minutes of critical care time in the direct management of this patient. This is a life/limb threatening event. This includes time spent evaluating patient, direct bedside care, chart review, placing orders, interpretation of diagnostic studies, discussion with consultants, patient, and family members, as well as other required patient management activities. This time is exclusive of all separately billable procedures, and teaching time and separate from and in addition to any other critical care service time. Please note the above document was generated using voice recognition software. It may contain grammatical, syntax or spelling errors. Admission and Anticipated Discharge Date Admission Date: March 01, 2022 Subjective Patient with increasing delirium this morning and agitation. He responded poorly to antipsychotics and Precedex had to be reinitiated over the evening Review of Systems Review of Systems: Unobtainable due to reduced consciousness Physical Exam Constitutional: WD/WN, vitals as above Neck: trachea midline, no thyromegaly Respiratory: normal respiratory effort, lungs clear to auscultation Cardiovascular: RRR, no murmur, no edema Gastrointestinal (Abdomen): normal bowel sounds, soft, nontender, no hepatosplenomegaly Musculoskeletal: Extremities: extremities normal to inspection Skin: no rashes, warm and dry Lymphatic: no cervical lymphadenopathy Results & Data Results & Data ([facility]) Vital Signs (Past 12 Hours) Vital Signs Temp Pulse Resp BP Pulse Ox 03/10/22 07:19 71 03/10/22 07:00 79 29 H 93 03/10/22 06:00 93/65 L 96 03/10/22 05:00 87 29 H 114/67 91 03/10/22 04:00 93 H 32 H 89/68 L 03/10/22 03:00 100 H 27 H 106/72 03/10/22 02:02 107 H 28 H 129/80 80 L 03/10/22 02:00 106 H 27 H 84 L 03/10/22 01:00 97 H 20 113/65 93 03/10/22 00:00 37.7 C H 94 H 25 H 105/76 95 03/09/22 23:55 94 H 03/09/22 23:00 93 H 20 115/68 90 03/09/22 22:00 93 H 24 108/67 94 03/09/22 21:00 92 H 24 126/89 92 Critical Care Results & Data Vital Signs (Past 12 Hours) Vital Signs Temp Pulse Resp BP Pulse Ox 03/10/22 07:19 71 03/10/22 07:00 79 29 H 93 03/10/22 06:00 93/65 L 96 03/10/22 05:00 87 29 H 114/67 91 03/10/22 04:00 93 H 32 H 89/68 L 03/10/22 03:00 100 H 27 H 106/72 03/10/22 02:02 107 H 28 H 129/80 80 L 03/10/22 02:00 106 H 27 H 84 L 03/10/22 01:00 97 H 20 113/65 93 03/10/22 00:00 37.7 C H 94 H 25 H 105/76 95 03/09/22 23:55 94 H 03/09/22 23:00 93 H 20 115/68 90 03/09/22 22:00 93 H 24 108/67 94 03/09/22 21:00 92 H 24 126/89 92 Lab & Micro Results (Past 24 Hours) RBC 3.42 M/uL (4.7-6.1) L 03/10/22 WBC 7.53 K/uL (4.8-10.8) 03/10/22 Hgb 11.1 g/dL (14.0-18.0) L 03/10/22 Hct 33.8 % (42-52) L 03/10/22 MCV 98.8 fL (80-100) 03/10/22 MCH 32.5 pg (25-34) 03/10/22 MCHC 32.8 g/dL (32-36) 03/10/22 RDW Standard Deviation 64.0 fL (36.4-46.3) H 03/10/22 RDW Coefficient of Variation 17.6 % (11.5-14.5) H 03/10/22 Plt Count 110 K/uL (130-400) L 03/10/22 MPV 11.1 fL (7.4-10.4) H 03/10/22 Neutrophils (%) (Auto) 93.1 % 03/10/22 Lymphocytes (%) (Auto) 2.9 % 03/10/22 Monocytes # (Auto) 0.17 K/uL (0.11-0.59) 03/10/22 Eosinophils # (Auto) 0.06 K/uL (0-0.5) 03/10/22 Immature Granulocyte % (Auto) 0.8 % 03/10/22 Neutrophils # (Auto) 7.01 K/uL (1.4-6.5) H 03/10/22 Lymphocytes # (Auto) 0.22 K/uL (1.2-3.4) L 03/10/22 Monocytes # (Auto) 0.17 K/uL (0.11-0.59) 03/10/22 Eosinophils # (Auto) 0.06 K/uL (0-0.5) 03/10/22 Basophils # (Auto) 0.01 K/uL (0-0.2) 03/10/22 Immature Granulocyte # (Auto) 0.06 K/uL (0.00-0.02) H 03/10/22 Na 136 mmol/L (136-145) 03/10/22 K 4.3 mmol/L (3.5-5.1) 03/10/22 Cl 106 mmol/L (98-107) 03/10/22 CO2 23 mmol/L (21-32) 03/10/22 Anion Gap 7 (3-11) 03/10/22 BUN 12 mg/dl (6-23) 03/10/22 Creatinine 0.71 mg/dl (0.6-1.4) 03/10/22 Estimated GFR ( Amer) 105.6 ml/min 03/10/22 Estimated GFR (Non-Af Amer) 91.1 ml/min 03/10/22 BUN/Creatinine Ratio 16.9 (10-20) 03/10/22 Glu 106 mg/dl (70-99(Fasting)) H 03/10/22 Ca 8.3 mg/dl (8.5-10.1) L 03/10/22 Phosphorus Level 2.7 mg/dl (2.5-4.9) 03/10/22 Mg 2.1 mg/dl (1.7-2.4) 03/10/22 05:16 03/10/22 Calcium Level 8.3 mg/dl (8.5-10.1) L 03/10/22 05:16 03/10/22 Microbiology 03/04/22 16:21 Aerobic Blood Culture - Final Blood No growth in Aerobic bottle after 5 days. Anaerobic Blood Culture - Final No growth in Anaerobic bottle after 5 days. 03/04/22 16:21 Aerobic Blood Culture - Final Blood No growth in Aerobic bottle after 5 days. Anaerobic Blood Culture - Final No growth in Anaerobic bottle after 5 days. I & O Totals 24 Hours 03/09/22 03/10/22 03/11/22 06:59 06:59 06:59 Intake Total 1121.705 / 1121.705 466.557 / 485.157 24.142 / .142 Output Total 400 / 400 2 / 2 Balance 721.705 / 721.705 464.557 / 483.157 24.142 / 24.142 Cumulative 03/01/22 14:31 thru 03/10/22 07:25 Intake Total 85295.071 Output Total 3862 Balance 7455.071 RT Ventilator Mngmt (Last Documented) Ventilator Ordered Settings Respiratory Rate 29 03/10/22 07:00 Fraction of Inspired Oxygen 35 03/09/22 00:00 Ventilator - PT Measurements Respiratory Rate 29 Coding Level of Care Code Critical Care 1st 30-74 mins Diagnoses Acute respiratory failure with hypoxia J96.[address] R93.89 Multiple myeloma C90.00
[2022-03-10 11:31] LABS: Fluid Mono/Macrophage 16 %; Lymphocyte Body Fluid Man 9 %
[2022-03-10 11:32] LABS: Neutrophil Body Fluid Man 75 %
[2022-03-10] MEDS: FLUCONAZOLE 100 MG TAB PO SCH (12:33)
[2022-03-10] MEDS: allopurinoL 100 MG TAB PO SCH ×2 (12:33→20:03)
[2022-03-10] MEDS: ACYCLOVIR 400 MG TAB PO SCH ×3 (12:34→20:11)
[2022-03-10] MEDS: PANTOprazole 40 MG TAB PO SCH (12:34)
[2022-03-10] MEDS: FUROSEMIDE 20 MG TAB PO SCH (12:34)
[2022-03-10] MEDS: POTASSIUM CITRATE 10 MEQ TAB PO SCH ×2 (12:34→20:03)
[2022-03-10] MEDS: DOCUSATE SODIUM/SENNA 50/8.6MG TAB PO SCH (12:35)
[2022-03-10] MEDS: ENOXAPARIN 100 MG/1ML SYR SQ SCH ×2 (12:35→20:02)
[2022-03-10] MEDS: DUTASTERIDE 0.5MG PO SCH (12:35)
[2022-03-10] MEDS: FLUTICASONE/VILANTEROL 200/25MCG 14 PUFFS/INHALER INH SCH (12:36)
[2022-03-10] MEDS ORDERED: WATER, STERILE FOR INJ 20 ML VIAL ONE (14:05)
[2022-03-10] MEDS: ZIPRASIDONE 20 MG/ML SDV IM PRN (14:12)
[2022-03-10] MEDS ORDERED: METOPROLOL TARTRATE 1 MG/ML VIAL IV STA (18:31)
[2022-03-10] MEDS ORDERED: METOPROLOL TARTRATE 1 MG/ML VIAL IV ONE (18:34)
--- NOTE | 2022-03-10 19:04 | Electrocardiogram Report ---
Test Reason : Blood Pressure : / mmHG Vent. Rate : 120 BPM Atrial Rate : 120 BPM P-R Int : 140 ms QRS Dur : 084 ms QT Int : 314 ms P-R-T Axes : 052 -37 069 degrees QTc Int : 443 ms Sinus tachycardia with Premature atrial complexes Left axis deviation Left ventricular hypertrophy with repolarization abnormality Abnormal ECG When compared with ECG of 06-MAR-2022 05:45, Nonspecific T wave abnormality no longer evident in Inferior leads Confirmed by Sp Dhaliwal [id number]) on 03/10/2022 7:04:27 PM Referred By: REFERRED SELF Confirmed By:Sp Dhaliwal
--- NOTE | 2022-03-10 20:22 | Hospitalist Progress Note ---
Date of Service March 10, 2022 Assessment & Plan (1) Shortness of breath: Plan: Presents with worsening shortness of breath, acute respiratory failure with hypoxia, with worsening ground-glass opacities on CT angiogram chest. Negative for PE. -->Recent admission January 2022 for acute appendicitis treated with antibiotics/no surgery Currently being treated for cryptococcal pneumonia with over 1 month of fluconazole proBNP negative, making heart failure not likely Hypoxic into the 80s prior to admission, requiring supplemental O2 Suspect all secondary to pneumonia-he is immunocompromised due to history of myeloma on chemotherapy Abx: continue Zosyn, Vancomycin for PNA Continue home fluconazole for cryptococcus pneumonia (completed 1 month thus far) Records from [facility] requested Continue home inhalers, incentive spirometer Not on O2 at home -- will need two step prior to discharge Currently on 5L --> SpO2 96% and asked RN to titrate to maintain sat >90 Pulmonology consulted -- appreciate recommendations No role for steroids at this time -- was on decadron on , however steroids will be held WBC wnl, afebrile Continue to monitor Patient had bronch ON 03/10 Patient can be transferred off ICU. Placed on Geodon for agitation. (2) Acute respiratory failure with hypoxia: Plan: Secondary to pneumonia Continue supplemental O2 to keep pulse ox greater than 90% will discuss with ID regarding fluconazole duration. awaiting results of bronch. (3) Cryptococcal pneumonitis: Plan: Continue fluconazole 400 mg p.o. once daily Holding chemotherapy for the last 2 months (4) Diarrhea: Plan: Has had 8 nonbloody loose stools in the last 24 hours No antibiotics last month except for fluconazole -Added stool panel PCR, avoid Imodium use until proven no bacterial infection No abdominal pains-no need for further imaging at this time (5) History of pulmonary embolism: Plan: Continue Lovenox 1.5 mg/KG SQ once daily Follows with anticoagulation clinic Previously on Coumadin but has been held while he is on fluconazole and they had been utilzing lovenox (6) (HFpEF) heart failure with preserved ejection fraction: Plan: No acute issues, does not appear hypervolemic Continue home Lasix 20 Mg p.o. once daily Continue blood pressure control (7) Light chain myeloma: Plan: Follows with oncology at [facility] Holding all home chemotherapy due to recent infection Still takes dexamethasone once a week on Continue suppressive acyclovir 400 mg p.o. twice daily (8) Hypokalemia: Plan: Secondary to poor p.o. intake and GI losses Continue supplementation with potassium chloride 40 mEq p.o. [id number] BMP magnesium in the morning Replaced magnesium Repeat wnl (9) Thrombocytopenia: Plan: Mild at 117 Likely secondary to acute illness Follow CBC (10) Anemia: Plan: Mild and at baseline Follow CBC Normocytic but was macrocytic. 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 Had multidisciplinary rounds Review of Systems Review of Systems: Unobtainable due to cognitive status Physical Exam Physical Exam: General: calm, tachypneic/hyperventilating, +hallucinations, mild respiratory distress, not cooperative with exam HEENT: head atraumatic, normocephalic, pupils equal/reactive, slightly dry mm, trachea midline i Resp: taachypneic CV: RRR, no m/r/g, no calf edema GI:+BS, soft/nontender : no munoz MSK/Neuro: CALM, moving all extremities, no focal motor deficit, but unable to participate in exam, no facial droop Psych: alert this morning but not oriented to place/time Results & Data Results & Data ([facility]) Vital Signs (Past 12 Hours) Vital Signs Temp Pulse Pulse Resp BP BP Pulse Ox 03/10/22 19:26 37.0 C 110 H 20 119/75 100 03/10/22 18:38 122 H 142/88 H 03/10/22 13:00 98 H 30 H 130/75 97 03/10/22 12:50 96 H 30 H 98 03/10/22 12:45 95 H 27 H 133/70 99 03/10/22 12:40 97 H 24 93 03/10/22 12:30 87 29 H 118/79 96 03/10/22 12:20 93 H 24 97 03/10/22 12:15 99 H 31 H 113/65 98 03/10/22 12:10 100 H 33 H 97 03/10/22 12:00 92 H 31 H 116/71 97 03/10/22 11:50 98 H 29 H 97 03/10/22 11:45 94 H 28 H 112/66 98 03/10/22 11:40 102 H 22 100 03/10/22 11:31 96 H 27 H 114/64 99 03/10/22 11:30 95 H 26 H 100 03/10/22 11:20 95 H 34 H 97 03/10/22 11:16 100 H 20 96 03/10/22 11:10 97 H 34 H 97 03/10/22 11:01 95 H 24 115/62 96 03/10/22 11:00 84 33 H 95 03/10/22 10:50 95 H 35 H 95 03/10/22 10:45 93 H 33 H 103/76 93 03/10/22 10:40 93 H 29 H 94 03/10/22 10:34 89 32 H 125/75 91 03/10/22 10:30 99 H 25 H 92 03/10/22 10:20 95 H 38 H 88 L 03/10/22 10:16 95 H 33 H 124/78 93 03/10/22 10:00 92 H 32 H 123/74 96 03/10/22 09:45 89 33 H 112/78 96 03/10/22 09:31 96 H 31 H 102/65 96 03/10/22 09:30 94 H 21 94 03/10/22 09:16 96 H 28 H 126/95 84 L 03/10/22 09:12 91 H 31 H 118/86 90 03/10/22 09:10 89 20 106/80 89 L 03/10/22 09:08 92 H 35 H 118/86 88 L 03/10/22 09:06 89 26 H 137/75 86 L 0607/22 09:03 88 24 118/84 93 03/10/22 09:01 91 H 31 H 120/80 94 03/10/22 09:00 90 16 91 03/10/22 08:58 86 16 107/69 92 03/10/22 08:55 97 H 21 118/78 90 03/10/22 08:53 87 31 H 111/76 93 03/10/22 08:50 91 H 17 107/69 95 03/10/22 08:49 92 H 17 118/73 94 03/10/22 08:46 79 18 98/62 L 95 03/10/22 08:43 98 H 15 106/65 93 03/10/22 08:40 86 19 92/69 L 95 03/10/22 08:38 91 H 16 106/71 93 03/10/22 08:35 80 19 122/70 96 03/10/22 08:32 87 25 H 108/64 94 03/10/22 08:30 87 16 102/78 94 03/10/22 08:28 92 H 17 129/82 93 PG Care Time/CCT Total # of Minutes Spent Total Time Spent with Patient: Total time spent is greater than 50% in coordination of care (as documented) at patient's floor/unit and/or counseling patient: Coding Level of Care Code 20467 Subseq Hosp Care Lvl 3 Diagnoses Shortness of breath R06.02 Acute respiratory failure with hypoxia J96.01 Cryptococcal pneumonitis B45.0 Diarrhea R19.7 History of pulmonary embolism Z86.711 (HFpEF) heart failure with preserved ejection fraction I50.30 Light chain myeloma C90.00 Hypokalemia E87.6 Thrombocytopenia D69.6 Anemia D64.9 BPH loc w urin obs/LUTS N40.1 GERD (gastroesophageal reflux disease) K21.9 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 Time Spent (min) 35
[2022-03-11] MEDS: ACETAMINOPHEN 500 MG TAB PO PRN (01:55)
[2022-03-11] MEDS: METOPROLOL TARTRATE 25 MG TAB PO SCH ×2 (05:26→18:12)
[2022-03-11 06:46] LABS: BUN Creatinine Ratio 18.1 (10-20); Calcium 8.7 mg/dl (8.5-10.1); Est GFR (African American) 90.9 ml/min; Est GFR (Non-African American) 78.4 ml/min; Phosphorus 3.4 mg/dl (2.5-4.9); Potassium 3.9 mmol/L (3.5-5.1)
[2022-03-11] MEDS: ACYCLOVIR 400 MG TAB PO SCH ×2 (08:48→19:57)
[2022-03-11] MEDS: POTASSIUM CITRATE 10 MEQ TAB PO SCH ×2 (08:48→19:59)
[2022-03-11] MEDS: allopurinoL 100 MG TAB PO SCH ×2 (08:48→19:58)
[2022-03-11] MEDS: ENOXAPARIN 100 MG/1ML SYR SQ SCH ×2 (08:49→19:58)
[2022-03-11] MEDS: FLUCONAZOLE 100 MG TAB PO SCH (08:49)
[2022-03-11] MEDS: FUROSEMIDE 20 MG TAB PO SCH (08:50)
[2022-03-11] MEDS: PANTOprazole 40 MG TAB PO SCH (08:50)
[2022-03-11] MEDS: DUTASTERIDE 0.5MG PO SCH (08:51)
[2022-03-11] MEDS: FLUTICASONE/VILANTEROL 200/25MCG 14 PUFFS/INHALER INH SCH (08:52)
--- NOTE | 2022-03-11 11:12 | Pulmonology Progress Note ---
Date of Service March 11, 2022 Assessment & Plan (1) Acute respiratory failure with hypoxia: (2) Abnormal chest CT: (3) Multiple myeloma: Plan: Impression: 76-year-old male with a history of multiple myeloma status post autologous peripheral stem cell transplant 2017 treated in the outpatient setting with daratumumab, pomalidomide and desamethasone admitted 03/01/2022 with hypoxemic respiratory failure and diffuse pulmonary infiltrates. The patient h as a history of cryptococcus being isolated from prior bronchoscopy in January and has been on Diflucan. Repeat bronchoscopy performed 03/10/2022 with persistent fungal elements identified, speciation pending. His oxygenation is improved. He continues to suffer from delirium. Recommendations: 1. Diffuse pulmonary infiltrates in immunocompromised patient. Bronchoscopy with BAL completed and pending. Unclear if the GMS positive organisms represent cryptococcus or potentially pneumocystis. Await specialized stains. Patient is currently on fluconazole 400 mg daily. Bactrim and steroids were stopped due to concerns about encephalopathy. If PJP is identified, these may need to be restarted. Fungitell pending. Cryptococcal antigen pending. 2. Hypoxemic respiratory failure: Continue supplemental oxygen titrated to keep saturations at or above 88%. 3. Delirium: Per primary service. Unclear if repeat LP would be indicated. Will continue to follow with you. Admission and Anticipated Discharge Date Admission Date: March 01, 2022 Subjective Patient seen and examined. MRI reviewed. The patient is without respiratory difficulties. He states he feels well. He is not coughing or expectorating phlegm. No hemoptysis. His oxygen has been weaned down to 1.5 nasal cannula. He continues to have issues with delirium. Review of Systems Review of Systems: Unobtainable due to cognitive status Physical Exam Constitutional: WD/WN, vitals as above Neck: trachea midline, no thyromegaly Respiratory: normal respiratory effort, lungs clear to auscultation Cardiovascular: RRR, no murmur, no edema Gastrointestinal (Abdomen): normal bowel sounds, soft, nontender, no hepatosplenomegaly Musculoskeletal: Extremities: extremities normal to inspection Skin: no rashes, warm and dry Lymphatic: no cervical lymphadenopathy Results & Data Results & Data ([facility]) Vital Signs (Past 12 Hours) Vital Signs Temp Pulse Pulse Pulse Resp BP BP 03/11/22 11:06 37.1 C 92 H 18 134/86 03/11/22 07:32 102 H 03/11/22 07:13 36.7 C 95 H 17 137/75 03/11/22 02:06 37.2 C 111 H 20 155/76 H 03/11/22 00:00 113 H Pulse Ox 03/11/22 11:06 95 03/11/22 07:32 03/11/22 07:13 96 03/11/22 02:06 97 03/11/22 00:00 Laboratory Results 03/10/22 05:23 03/11/22 05:54 Reviewed cytology with pathology. There are GMS positive organisms identified. Preliminarily these appeared consistent with cryptococcus however there are some special stains pending to exclude pneumocystis Diagnostic Findings No new films PG Care Time/CCT Total # of Minutes Spent Total Time Spent with Patient: Total time spent is greater than 50% in coordination of care (as documented) at patient's floor/unit and/or counseling patient: Coding Level of Care Code 09898 Subseq Hosp Care Lvl 3 Diagnoses Acute respiratory failure with hypoxia J96.[address] R93.89 Multiple myeloma C90.00
[2022-03-11] MEDS: DOCUSATE SODIUM/SENNA 50/8.6MG TAB PO SCH (14:32)
[2022-03-11 16:06] LABS: Cryptococcal Antigen Detected (Not Detected); Source Serum
--- NOTE | 2022-03-11 22:37 | Hospitalist Progress Note ---
Date of Service March 11, 2022 Assessment & Plan (1) Shortness of breath: Plan: Presents with worsening shortness of breath, acute respiratory failure with hypoxia, with worsening ground-glass opacities on CT angiogram chest. Negative for PE. -->Recent admission January 2022 for acute appendicitis treated with antibiotics/no surgery Currently being treated for cryptococcal pneumonia with over 1 month of fluconazole proBNP negative, making heart failure not likely Hypoxic into the 80s prior to admission, requiring supplemental O2 Suspect all secondary to pneumonia-he is immunocompromised due to history of myeloma on chemotherapy Abx: continue Zosyn, Vancomycin for PNA Continue home fluconazole for cryptococcus pneumonia (completed 1 month thus far) Records from [facility] requested Continue home inhalers, incentive spirometer Not on O2 at home -- will need two step prior to discharge Currently on 5L --> SpO2 96% and asked RN to titrate to maintain sat >90 Pulmonology consulted -- appreciate recommendations No role for steroids at this time -- was on decadron on , however steroids will be held WBC wnl, afebrile Continue to monitor Patient had bronch ON 03/10 Patient can be transferred off ICU. Placed on Geodon for agitation. Awaiting cultures: unsure if crypto or PJP. Appreciate input from pulmonary. (2) Acute respiratory failure with hypoxia: Plan: Secondary to pneumonia Continue supplemental O2 to keep pulse ox greater than 90% will discuss with ID regarding fluconazole duration. awaiting results of bronch. (3) Cryptococcal pneumonitis: Plan: Continue fluconazole 400 mg p.o. once daily Holding chemotherapy for the last 2 months (4) Diarrhea: Plan: Has had 8 nonbloody loose stools in the last 24 hours No antibiotics last month except for fluconazole -Added stool panel PCR, avoid Imodium use until proven no bacterial infection No abdominal pains-no need for further imaging at this time (5) History of pulmonary embolism: Plan: Continue Lovenox 1.5 mg/KG SQ once daily Follows with anticoagulation clinic Previously on Coumadin but has been held while he is on fluconazole and they had been utilzing lovenox (6) (HFpEF) heart failure with preserved ejection fraction: Plan: No acute issues, does not appear hypervolemic Continue home Lasix 20 Mg p.o. once daily Continue blood pressure control (7) Light chain myeloma: Plan: Follows with oncology at [facility] Holding all home chemotherapy due to recent infection Still takes dexamethasone once a week on Continue suppressive acyclovir 400 mg p.o. twice daily (8) Hypokalemia: Plan: Secondary to poor p.o. intake and GI losses Continue supplementation with potassium chloride 40 mEq p.o. [id number] BMP magnesium in the morning Replaced magnesium Repeat wnl (9) Thrombocytopenia: Plan: Mild at 117 Likely secondary to acute illness Follow CBC (10) Anemia: Plan: Mild and at baseline Follow CBC Normocytic but was macrocytic. 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 is at bedside, patient appears much less restless today. She reports he sleeps at home during the majority of the day. Only wakes up to eat and then rests. Physical Exam Physical Exam: General: calm, resting comfortably. HEENT: head atraumatic, normocephalic, pupils equal/reactive, slightly dry mm, trachea midline Resp: no longer tachypnic CV: RRR, no m/r/g, no calf edema GI:+BS, soft/nontender : no munoz MSK/Neuro: CALM, moving all extremities, no focal motor deficit, but unable to participate in exam, no facial droop Psych: alert this morning but not oriented to place/time Results & Data Results & Data ([facility]) Vital Signs (Past 12 Hours) Vital Signs Temp Pulse Pulse Pulse Resp BP BP 03/11/22 19:08 37.0 C 78 16 136/84 03/11/22 15:37 36.9 C 108 H 18 126/84 03/11/22 15:28 108 H 03/11/22 11:06 37.1 C 92 H 18 134/86 Pulse Ox 03/11/22 19:08 96 03/11/22 15:37 97 03/11/22 15:28 03/11/22 11:06 95 PG Care Time/CCT Total # of Minutes Spent Total Time Spent with Patient: Total time spent is greater than 50% in coordination of care (as documented) at patient's floor/unit and/or counseling patient: Coding Level of Care Code 17248 Subseq Hosp Care Lvl 2 Diagnoses Shortness of breath R06.02 Acute respiratory failure with hypoxia J96.01 Cryptococcal pneumonitis B45.0 Diarrhea R19.7 History of pulmonary embolism Z86.711 (HFpEF) heart failure with preserved ejection fraction I50.30 Light chain myeloma C90.00 Hypokalemia E87.6 Thrombocytopenia D69.6 Anemia D64.9 BPH loc w urin obs/LUTS N40.1 GERD (gastroesophageal reflux disease) K21.9 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
[2022-03-12] MEDS: METOPROLOL TARTRATE 25 MG TAB PO SCH ×2 (05:12→17:35)
[2022-03-12] MEDS: POTASSIUM CITRATE 10 MEQ TAB PO SCH (08:11)
[2022-03-12] MEDS: FUROSEMIDE 20 MG TAB PO SCH (08:11)
[2022-03-12] MEDS: PANTOprazole 40 MG TAB PO SCH (08:12)
[2022-03-12] MEDS: allopurinoL 100 MG TAB PO SCH ×2 (08:12→20:16)
[2022-03-12] MEDS: ENOXAPARIN 100 MG/1ML SYR SQ SCH ×2 (08:12→20:17)
[2022-03-12] MEDS: ACYCLOVIR 400 MG TAB PO SCH ×2 (08:12→20:15)
[2022-03-12] MEDS: FLUCONAZOLE 100 MG TAB PO SCH (08:12)
[2022-03-12] MEDS: DUTASTERIDE 0.5MG PO SCH (08:13)
[2022-03-12] MEDS: FLUTICASONE/VILANTEROL 200/25MCG 14 PUFFS/INHALER INH SCH (08:13)
[2022-03-12] MEDS: DOCUSATE SODIUM/SENNA 50/8.6MG TAB PO SCH (08:16)
--- NOTE | 2022-03-12 08:39 | Pulmonology Progress Note ---
Date of Service March 12, 2022 Assessment & Plan (1) Acute respiratory failure with hypoxia: (2) Abnormal chest CT: (3) Multiple myeloma: Plan: Impression: 76-year-old male with a history of multiple myeloma status post autologous peripheral stem cell transplant 2017 treated in the outpatient setting with daratumumab, pomalidomide and desamethasone admitted 03/01/2022 with hypoxemic respiratory failure and diffuse pulmonary infiltrates. The patient h as a history of cryptococcus being isolated from prior bronchoscopy in January and has been on Diflucan. Repeat bronchoscopy performed 03/10/2022 with persistent fungal elements identified, discussed with pathology yesterday and there appears to be difficulty ascertaining whether these are cryptococcus or pneumocystis. His oxygenation is improved. Recommendations: 1. Diffuse pulmonary infiltrates in immunocompromised patient. Bronchoscopy with BAL completed and pending. Unclear if the GMS positive organisms represent cryptococcus or potentially pneumocystis. Given the diagnostic uncertainty, I think continuing with fluconazole and placing the patient back on Bactrim double strength 2 tablets 4 times daily is reasonable. Unclear if pneumocystis PCR was sent from BAL specimen will reorder. Given his issues with delirium associated with steroids, will avoid adjunctive steroids at this point time. His potassium supplementation will be discontinued and will follow closely BUN/creatinine and electrolytes. If he can tolerate, would favor 21 days of Bactrim therapy and at least 12 months of fluconazole. If there are concerns, repeat consultation with infectious disease may be appropriate 2. Hypoxemic respiratory failure: Continue supplemental oxygen titrated to keep saturations at or above 88%. 3. Delirium: Improved. Recommend out of bed to chair as tolerated and PT and OT to work with the patient to improve mobility. Will continue to follow with you. Admission and Anticipated Discharge Date Admission Date: March 01, 2022 Subjective Patient seen and examined. EMR reviewed. Discussed with nursing and sitter at bedside and with patient. He appears better this morning. He is less agitated. He reportedly slept somew hat last night. He is down to 1 to 2 L of oxygen via nasal cannula. He is occasionally coughing. He is not producing any significant phlegm. No chest pain palpitations. Review of Systems Review of Systems: All systems reviewed & are unremarkable except as noted in Subjective Physical Exam Constitutional: WD/WN, vitals as above Neck: trachea midline, no thyromegaly Respiratory: normal respiratory effort, lungs clear to auscultation Cardiovascular: RRR, no murmur, no edema Gastrointestinal (Abdomen): normal bowel sounds, soft, nontender, no hepatosplenomegaly Musculoskeletal: Extremities: extremities normal to inspection Skin: no rashes, warm and dry Lymphatic: no cervical lymphadenopathy Results & Data Results & Data ([facility]) Vital Signs (Past 12 Hours) Vital Signs Temp Pulse Pulse Resp BP Pulse Ox 03/12/22 07:12 117 H 03/12/22 06:11 37.1 C 110 H 20 121/79 94 03/12/22 02:48 36.7 C 100 H 18 143/81 H 93 03/12/22 00:00 103 H 03/11/22 23:40 37.0 C 90 18 149/74 H 95 Laboratory Results 03/10/22 05:23 03/11/22 05:54 Cryptococcal antigen elevated at 1-64 on serum PG Care Time/CCT Total # of Minutes Spent Total Time Spent with Patient: Total time spent is greater than 50% in coordination of care (as documented) at patient's floor/unit and/or counseling patient: Coding Level of Care Code 44412 Subseq Hosp Care Lvl 3 Diagnoses Acute respiratory failure with hypoxia J96.[address] R93.89 Multiple myeloma C90.00
[2022-03-12] MEDS ORDERED: predniSONE 20 MG TAB PO SCH (09:00)
[2022-03-12 09:12] LABS: BUN Creatinine Ratio 19.3 (10-20); Creatinine Clr Calc Pharmacy 73.7 ml/min; Est GFR (African American) 96.7 ml/min; Est GFR (Non-African American) 83.4 ml/min; Magnesium 1.9 mg/dl (1.7-2.4); Phosphorus 2.9 mg/dl (2.5-4.9)
[2022-03-12] MEDS: HEPARIN 100 UNIT/ML 5ML FLUSH FLUSH PRN (09:28)
[2022-03-12] MEDS: SULFAMETHOXAZOLE/TRIMETHOPRIM DS 800/160MG TAB PO SCH ×4 (10:30→20:14)
--- NOTE | 2022-03-12 17:49 | Hospitalist Progress Note ---
Date of Service March 12, 2022 Assessment & Plan (1) Shortness of breath: Plan: Presents with worsening shortness of breath, acute respiratory failure with hypoxia, with worsening ground-glass opacities on CT angiogram chest. Negative for PE. -->Recent admission January 2022 for acute appendicitis treated with antibiotics/no surgery Currently being treated for cryptococcal pneumonia with over 1 month of fluconazole Currently on NC 2LPM O2 however was not in his nose when seen Suspect all secondary to pneumonia-he is immunocompromised due to history of myeloma on chemotherapy - discussed with Dr Alvarez today. Serum Ag positive for cryptococcus but also treating for PCP with bactrim. Continue home inhalers, incentive spirometer Continue to monitor Patient had bronch ON 03/10 Appreciate pulmonology management of suspected PCP + cryptoccocus pneumonia (2) Acute respiratory failure with hypoxia: Plan: As above (3) Cryptococcal pneumonitis: Plan: Continue fluconazole 400 mg p.o. once daily Holding chemotherapy for the last 2 months Prior LP in January - unless significantly not returning to baseline no plans on repeat this as he had cryptococcal pneumonia at this time. (4) Diarrhea: Plan: Resolved (5) History of pulmonary embolism: Plan: Continue Lovenox 1 mg/KG SQ BID Follows with anticoagulation clinic Previously on Coumadin but has been held while he is on fluconazole and they had been utilizing Lovenox (6) (HFpEF) heart failure with preserved ejection fraction: Plan: No acute issues, does not appear hypervolemic Continue home Lasix 20 Mg p.o. once daily Continue blood pressure control (7) Light chain myeloma: Plan: Follows with oncology at [facility] Holding all home chemotherapy due to recent infection Continue suppressive acyclovir 400 mg p.o. twice daily (8) Hypokalemia: Plan: Resolved (9) Thrombocytopenia: Plan: Mild at 117 Likely secondary to acute illness Follow CBC (10) Anemia: Plan: Mild and at baseline Follow CBC Normocytic but was macrocytic. Patient does have hx myeloma though Did check B12 given gait/memory --> LOW 162 AND IM REPLACEMENT ORDERED INPATIENT, PO AT DISCHARGE REC'D (11) BPH loc w urin obs/LUTS: Plan: No acute issues Bladder scan as needed Continue home dutasteride (12) GERD (gastroesophageal reflux disease): Plan: Continue home PPI mag replaced and repeat wnl (13) Osteoporosis 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: (14) Depression: Plan: Continue home Celexa (15) Calculus of kidney: Plan: With a history of uric acid stones, follows with urology Continue home Urocit-K and allopurinol (16) B12 deficiency: Plan: checked, B12 level 162 pg/ml should also help with anemia and possible altered mental status Cyanocobalamin 1000 mcg IM given 03/02 - 03/06 [5 doses] Plan: DVT prophylaxis-Lovenox, SCDs DNR/DNI Continued inpatient stay pending improvement in mentation, PT/OT consults pending Admission and Anticipated Discharge Date Admission Date: March 01, 2022 Subjective Patient reports feeling unwell but has no specific complaints of cough, shortness of breath or pain anywhere. He reports eating and drinking. He is orientated to person, place and year. He is only one month off (thinks it is February) and unaware of the date. Unable to get any significant history from the patient. Missed his during visiting hours today and no answer on both numbers provided in EHR - unclear of his baseline at this time however prior notes reports delirium significantly improved off steroids. Review of Systems Review of Systems: All systems reviewed & are unremarkable except as noted in Subjective Physical Exam Constitutional: well developed; + not well nourished Respiratory: normal respiratory effort, lungs clear to auscultation Cardiovascular: RRR, no murmur, no edema Gastrointestinal (Abdomen): normal bowel sounds, soft, nontender, no hepatosplenomegaly Musculoskeletal: Extremities: extremities normal to inspection Skin: no rashes, warm and dry Neurologic: moves all extremities, awake and + confused Psychiatric: Orientation: alert, oriented to person, oriented to place and oriented to time (year only) Results & Data Results & Data ([facility]) Vital Signs (Past 12 Hours) Vital Signs Temp Pulse Pulse Resp BP Pulse Ox 03/12/22 16:21 98 H 03/12/22 15:08 36.2 C L 95 H 20 123/79 94 03/12/22 10:36 36.5 C 82 20 132/84 92 03/12/22 07:12 117 H 03/12/22 06:11 37.1 C 110 H 20 121/79 94 PG Care Time/CCT Total # of Minutes Spent Total Time Spent with Patient: Total time spent is greater than 50% in coordination of care (as documented) at patient's floor/unit and/or counseling patient: Coding Level of Care Code 27632 Subseq Hosp Care Lvl 3 Diagnoses Shortness of breath R06.02 Acute respiratory failure with hypoxia J96.01 Cryptococcal pneumonitis B45.0 Diarrhea R19.7 History of pulmonary embolism Z86.711 (HFpEF) heart failure with preserved ejection fraction I50.30 Light chain myeloma C90.00 Hypokalemia E87.6 Thrombocytopenia D69.6 Anemia D64.9 BPH loc w urin obs/LUTS N40.1 GERD (gastroesophageal reflux disease) K21.9 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
[2022-03-13 02:41] LABS: Anti Cardiolipin Ab IgG <2.0 GPL-U/mL; Anti Cardiolipin Ab IgM <2.0 MPL-U/mL; Anti Nuclear Antibody Screen NEGATIVE (NEGATIVE); Anti-Cardiolipin Ab IgA <2.0 APL-U/mL; Anti-Centromere Ab <1.0 NEG AI (<1.0 NEG); Anti-SS-A <1.0 NEG AI (<1.0 NEG); Anti-SS-B <1.0 NEG AI (<1.0 NEG); Chromatin Antibody <1.0 NEG AI (<1.0 NEG); Complement C3 163 mg/dL (82-185); DNA ds Crithidia NEGATIVE (NEGATIVE); Fungitell (1-3)-B-D-Glucan 292 pg/mL; Microsomal Ab <1 IU/mL (<9); RNP Antibody <1.0 NEG AI (<1.0 NEG); Scleroderma Anti Scl-70 Ab <1.0 NEG AI (<1.0 NEG); Sm Antibody <1.0 NEG AI (<1.0 NEG)
[2022-03-13] MEDS: METOPROLOL TARTRATE 25 MG TAB PO SCH ×3 (05:43→19:51)
[2022-03-13 06:59] LABS: BUN Creatinine Ratio 14.1 (10-20); Calcium 8.3 mg/dl (8.5-10.1); Creatinine Clr Calc Pharmacy 65.5 ml/min; Est GFR (African American) 85.4 ml/min; Est GFR (Non-African American) 73.7 ml/min; Magnesium 1.8 mg/dl (1.7-2.4); Potassium 3.6 mmol/L (3.5-5.1)
[2022-03-13] MEDS: DUTASTERIDE 0.5MG PO SCH (08:11)
[2022-03-13] MEDS: ENOXAPARIN 100 MG/1ML SYR SQ SCH ×2 (08:11→19:50)
[2022-03-13] MEDS: allopurinoL 100 MG TAB PO SCH ×2 (08:12→19:52)
[2022-03-13] MEDS: FLUTICASONE/VILANTEROL 200/25MCG 14 PUFFS/INHALER INH SCH (08:12)
[2022-03-13] MEDS: FLUCONAZOLE 100 MG TAB PO SCH (08:12)
[2022-03-13] MEDS: FUROSEMIDE 20 MG TAB PO SCH (08:13)
[2022-03-13] MEDS: ACYCLOVIR 400 MG TAB PO SCH ×2 (08:13→19:51)
[2022-03-13] MEDS: PANTOprazole 40 MG TAB PO SCH (08:13)
[2022-03-13] MEDS: SULFAMETHOXAZOLE/TRIMETHOPRIM DS 800/160MG TAB PO SCH ×4 (08:14→19:52)
[2022-03-13] MEDS: DOCUSATE SODIUM/SENNA 50/8.6MG TAB PO SCH (08:15)
--- NOTE | 2022-03-13 08:18 | Pulmonology Progress Note ---
Date of Service March 13, 2022 Assessment & Plan (1) Acute respiratory failure with hypoxia: (2) Abnormal chest CT: (3) Multiple myeloma: Plan: Impression: 76-year-old male with a history of multiple myeloma status post autologous peripheral stem cell transplant 2017 treated in the outpatient setting with daratumumab, pomalidomide and desamethasone admitted 03/01/2022 with hypoxemic respiratory failure and diffuse pulmonary infiltrates. The patient has a history of cryptococcus being isolated from prior bronchoscopy in January and has been on Diflucan. Repeat bronchoscopy performed 03/10/2022 felt to be consistent with pneumocystis by pathology. He is currently on Diflucan and Bactrim. Recommendations: 1. Diffuse pulmonary infiltrates in immunocompromised patient. Cryptococcus identified in prior bronchoscopy and cryptococcal antigen elevated but bronchoscopy this time appears to be more consistent with pneumocystis. Continue fluconazole and would complete 21-day course of Bactrim. Fluconazole should be continued for at least 12 months. Recommend outpatient ID follow-up. Avoiding steroids given the patient's prior delirium/encephalopathy associated with medications. Continue to follow kidney function and electrolytes in association with high-dose Bactrim. Would avoid potassium repletion at this time. 2. Hypoxemic respiratory failure: Continue supplemental oxygen titrated to keep saturations at or above 88%. 3. Delirium: Improved. Recommend out of bed to chair as tolerated and PT and OT to work with the patient to improve mobility. Disposition per primary service. Will continue to follow with you. Admission and Anticipated Discharge Date Admission Date: March 01, 2022 Subjective Patient seen and examined. EMR reviewed. Continues to demonstrate some confusion and delirium. From a respiratory standpoint he is doing better. He states he is rarely coughing and not producing any phlegm. No fevers chills or night sweats. He is tolerating Bactrim and fluconazole well. Review of Systems Review of Systems: Unobtainable due to cognitive status Physical Exam Constitutional: WD/WN, vitals as above Neck: trachea midline, no thyromegaly Respiratory: normal respiratory effort, lungs clear to auscultation Cardiovascular: RRR, no murmur, no edema Gastrointestinal (Abdomen): normal bowel sounds, soft, nontender, no hepatosplenomegaly Musculoskeletal: Extremities: extremities normal to inspection Skin: no rashes, warm and dry Lymphatic: no cervical lymphadenopathy Results & Data Results & Data ([facility]) Vital Signs (Past 12 Hours) Vital Signs Temp Pulse Pulse Pulse Resp BP BP 03/13/22 07:54 36.6 C 92 H 12 130/76 03/13/22 07:30 94 H 03/13/22 07:22 36.4 C L 94 H 20 117/71 03/13/22 05:39 108 H 126/70 03/13/22 03:44 105 H 03/13/22 02:52 36.9 C 94 H 20 129/61 03/12/22 23:00 37.2 C 98 H 20 131/83 Pulse Ox 03/13/22 07:54 96 03/13/22 07:30 03/13/22 07:22 94 03/13/22 05:39 03/13/22 03:44 03/13/22 02:52 90 03/12/22 23:00 92 Laboratory Results 03/10/22 05:23 03/13/22 05:59 BAL path FINAL DIAGNOSIS This report was corrected to change the morphologic interpretation of the fungal organisms from Cryptococcus to Pneumocystis Bronchial washing, lingula: - Fungal organisms most consistent with Pneumocystis - Scattered macrophages, benign bronchial cells and neutrophils - Negative for malignancy Comment: Cytology slides show the normal bronchial washing findings of macrophages, bronchial cells, and inflammatory cells. In addition to this, there are some scattered collections of foamy amorphous material. The cell block and smear show circular cup-like organisms with occasional grooves. No definitive bu dding is seen. The main differential of circular organisms of this size includes Cryptococcus, Histoplasmosis, and Pneumocystis. The patient's history of Cryptococcus in January is noted; however, no definitive budding is seen and with the presence of foamy material this is most consistent with Pneumocystis. This case was reviewed intra-departmentally with agreement to the above diagnosis. Screened byon at . at 0851. Clinical History Hypoxia, pneumonia Tissues A. Bronchial Washing Lingula [email or web address].NG Gross Description 25 CC TURBID COLORLESS FLUID 1TP,1CB Microscopic Description GMS: Positive for cup-like organisms most consistent with Pneumocystis PAS: Positive for cup-like organisms most consistent with Pneumocystis Alcian blue: No staining seen in the organisms Diagnostic Findings no new imaging PG Care Time/CCT Total # of Minutes Spent Total Time Spent with Patient: Total time spent is greater than 50% in coordination of care (as documented) at patient's floor/unit and/or counseling patient: Coding Level of Care Code 48690 Subseq Hosp Care Lvl 2 Diagnoses Acute respiratory failure with hypoxia J96.[address] R93.89 Multiple myeloma C90.00
[2022-03-13] MEDS: HEPARIN 100 UNIT/ML 5ML FLUSH FLUSH PRN ×2 (10:28→13:05)
[2022-03-13] MEDS ORDERED: MAGNESIUM SULFATE / D5W 1 GM/100 ML BAG IV ONE (11:00)
--- NOTE | 2022-03-13 14:03 | Hospitalist Progress Note ---
Date of Service March 13, 2022 Assessment & Plan (1) Shortness of breath: Plan: Presents with worsening shortness of breath, acute respiratory failure with hypoxia, with worsening ground-glass opacities on CT angiogram chest. Negative for PE. -->Recent admission January 2022 for acute appendicitis treated with antibiotics/no surgery Currently being treated for cryptococcal pneumonia with over 1 month of fluconazole Currently on NC 2LPM O2 however was not in his nose when seen Suspect all secondary to pneumonia-he is immunocompromised due to history of myeloma on chemotherapy - discussed with Dr Alvarez today. Serum Ag positive for cryptococcus but also treating for PCP with bactrim. Continue home inhalers, incentive spirometer Continue to monitor Patient had bronch ON 03/10 Appreciate pulmonology management of suspected PCP + cryptoccocus pneumonia (2) Fatigue: Plan: Some concerning history for myasthenia. Will serially measure VC and NIF qshift. Worsening with steroids would also potentially fit this diagnosis. Will send myasthenia antibodies although this is a send out test and if neurology are available over the weekend will have them see. Consult neurology Possible trial of pyridostigmine tomorrow (3) Acute respiratory failure with hypoxia: Plan: As above (4) Cryptococcal pneumonitis: Plan: Continue fluconazole 400 mg p.o. once daily Holding chemotherapy for the last 2 months Prior LP in January - unless significantly not returning to baseline no plans on repeat this as he had cryptococcal pneumonia at this time. (5) Diarrhea: Plan: Resolved (6) History of pulmonary embolism: Plan: Continue Lovenox 1 mg/KG SQ BID Follows with anticoagulation clinic Previously on Coumadin but has been held while he is on fluconazole and they had been utilizing Lovenox (7) (HFpEF) heart failure with preserved ejection fraction: Plan: No acute issues, does not appear hypervolemic Continue home Lasix 20 Mg p.o. once daily Continue blood pressure control (8) Light chain myeloma: Plan: Follows with oncology at [facility] Holding all home chemotherapy due to recent infection Continue suppressive acyclovir 400 mg p.o. twice daily (9) Hypokalemia: Plan: Resolved (10) Thrombocytopenia: Plan: Mild at 117 Likely secondary to acute illness Follow CBC (11) Anemia: Plan: Mild and at baseline Follow CBC Normocytic but was macrocytic. 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: (15) Depression: Plan: Continue home Celexa (16) Calculus of kidney: Plan: With a history of uric acid stones, follows with urology Continue home Urocit-K and allopurinol (17) B12 deficiency: Plan: checked, B12 level 162 pg/ml should also help with anemia and possible altered mental status +/- fatigue Cyanocobalamin 1000 mcg IM given 03/02 - 03/06 [5 doses], start PO supplementation Plan: DVT prophylaxis-Lovenox, SCDs DNR/DNI Continued inpatient stay pending improvement in mentation, PT/OT consults recommending rehab Admission and Anticipated Discharge Date Admission Date: March 01, 2022 Subjective Patient reports feeling similar to yesterday. Fatigue progressively increasing over the course of 2 months. Finds it hard to keep his head up and eyes open. Has to go back to bed. Feels ok initially when he wakes up but gets increasingly fatigued the more he is up. Planning on rehabilitation on discharge. Updated his over the phone. Review of Systems Review of Systems: All systems reviewed & are unremarkable except as noted in Subjective Physical Exam Constitutional: well developed; + not well nourished Respiratory: normal respiratory effort, lungs clear to auscultation Cardiovascular: RRR, no murmur, no edema Gastrointestinal (Abdomen): normal bowel sounds, soft, nontender, no hepatosplenomegaly Musculoskeletal: Extremities: extremities normal to inspection Skin: no rashes, warm and dry Neurologic: moves all extremities, awake and + confused Psychiatric: Orientation: alert, oriented to person, oriented to place and oriented to time (year only) Results & Data Results & Data ([facility]) Vital Signs (Past 12 Hours) Vital Signs Temp Pulse Pulse Pulse Resp BP BP 03/13/22 12:24 36.8 C 75 12 124/67 03/13/22 11:13 36.8 C 91 H 20 132/80 03/13/22 07:54 36.6 C 92 H 12 130/76 03/13/22 07:30 94 H 03/13/22 07:22 36.4 C L 94 H 20 117/71 03/13/22 05:39 108 H 126/70 03/13/22 03:44 105 H 03/13/22 02:52 36.9 C 94 H 20 129/61 Pulse Ox 03/13/22 12:24 95 03/13/22 11:13 93 03/13/22 07:54 96 03/13/22 07:30 03/13/22 07:22 94 03/13/22 05:39 03/13/22 03:44 03/13/22 02:52 90 PG Care Time/CCT Total # of Minutes Spent Total Time Spent with Patient: Total time spent is greater than 50% in coordination of care (as documented) at patient's floor/unit and/or counseling patient: Coding Level of Care Code 82790 Subseq Hosp Care Lvl 2 Diagnoses Shortness of breath R06.02 Acute respiratory failure with hypoxia J96.01 Cryptococcal pneumonitis B45.0 Diarrhea R19.7 History of pulmonary embolism Z86.711 (HFpEF) heart failure with preserved ejection fraction I50.30 Light chain myeloma C90.00 Hypokalemia E87.6 Thrombocytopenia D69.6 Anemia D64.9 BPH loc w urin obs/LUTS N40.1 GERD (gastroesophageal reflux disease) K21.9 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
[2022-03-14 06:31] LABS: Eosinophils # (auto) 0.02 K/uL (0-0.5); Eosinophils % (auto) 0.4 %; Hematocrit (blood only) 33.9 % (42-52); Hemoglobin 11.4 g/dL (14.0-18.0); Immature Granulocytes # (auto) 0.06 K/uL (0.00-0.02); Immature Granulocytes % (auto) 1.1 %; Lymphocytes # (auto) 0.49 K/uL (1.2-3.4); Mean Corpuscular Hemoglobin 32.8 pg (25-34); Mean Corpuscular Hgb Conc 33.6 g/dL (32-36); Mean Corpuscular Volume 97.4 fL (80-100); Mean Platelet Volume 11.5 fL (7.4-10.4); Monocytes # (auto) 0.21 K/uL (0.11-0.59); Monocytes % (auto) 3.9 %; Neutrophils # (auto) 4.66 K/uL (1.4-6.5); Neutrophils % (auto) 85.6 %; Platelet Count 111 K/uL (130-400); RDW Coefficient of Variation 17.4 % (11.5-14.5); RDW Standard Deviation 62.1 fL (36.4-46.3); Red Blood Count 3.48 M/uL (4.7-6.1); White Blood Count 5.44 K/uL (4.8-10.8)
[2022-03-14 06:58] LABS: BUN Creatinine Ratio 13.7 (10-20); Creatinine Clr Calc Pharmacy 68.3 ml/min; Est GFR (African American) 89.8 ml/min; Est GFR (Non-African American) 77.4 ml/min; Magnesium 2.1 mg/dl (1.7-2.4); Phosphorus 2.8 mg/dl (2.5-4.9); Potassium 3.7 mmol/L (3.5-5.1)
--- NOTE | 2022-03-14 08:13 | Pulmonology Progress Note ---
Date of Service March 14, 2022 Assessment & Plan (1) Acute respiratory failure with hypoxia: (2) Abnormal chest CT: (3) Multiple myeloma: Plan: Impression: 76-year-old male with a history of multiple myeloma status post autologous peripheral stem cell transplant 2017 treated in the outpatient setting with daratumumab, pomalidomide and desamethasone admitted 03/01/2022 with hypoxemic respiratory failure and diffuse pulmonary infiltrates. The patient has a history of cryptococcus being isolated from prior bronchoscopy in January and has been on Diflucan. Repeat bronchoscopy performed 03/10/2022 felt to be consistent with pneumocystis by pathology. He is currently on Diflucan and Bactrim. Recommendations: 1. Diffuse pulmonary infiltrates in immunocompromised patient. Cryptococcus identified in prior bronchoscopy and cryptococcal antigen elevated but bronchoscopy this time appears to be more consistent with pneumocystis. Continue fluconazole and would complete 21-day course of Bactrim. Fluconazole should be continued for at least 12 months. Recommend outpatient ID follow-up. Avoiding steroids given the patient's prior delirium/encephalopathy associated with medications. Continue to follow kidney function and electrolytes in association with high-dose Bactrim. 2. Hypoxemic respiratory failure: Resolved, patient now on room air 3. Delirium: Per primary service. 4. Would recommend that the patient have a follow-up CT scan in 4 to 6weeks. From a pulmonary perspective, the patient is stable. He should follow-up with his outpatient artifacts conservator, Dr. Tyson at [facility] at discharge Pulmonary will sign off. Feel free to contact us with additional questions or concerns. Admission and Anticipated Discharge Date Admission Date: March 01, 2022 Subjective Patient seen and examined. EMR reviewed. Patient sitting up eating breakfast. He remains confused and slightly delirious however he is not having any respiratory issues. He denies any cough or sputum production. No chest pain or palpitations. He is off oxygen. Review of Systems Review of Systems: Unobtainable due to mental health condition Physical Exam Constitutional: WD/WN, vitals as above Neck: trachea midline, no thyromegaly Respiratory: normal respiratory effort, lungs clear to auscultation Cardiovascular: RRR, no murmur, no edema Gastrointestinal (Abdomen): normal bowel sounds, soft, nontender, no hepatosplenomegaly Musculoskeletal: Extremities: extremities normal to inspection Skin: no rashes, warm and dry Lymphatic: no cervical lymphadenopathy Results & Data Results & Data ([facility]) Vital Signs (Past 12 Hours) Vital Signs Temp Pulse Pulse Pulse Resp BP BP 03/14/22 07:19 96 H 03/14/22 07:15 36.9 C 96 H 18 119/72 03/14/22 06:16 36.9 C 96 H 20 119/72 03/14/22 03:27 37 C 96 H 18 126/73 03/14/22 00:31 95 H 03/13/22 22:51 36.9 C 94 H 18 121/76 Pulse Ox 03/14/22 07:19 03/14/22 07:15 92 03/14/22 06:16 91 03/14/22 03:27 911 H 03/14/22 00:31 03/13/22 22:51 93 Laboratory Results 03/14/22 05:36 03/14/22 05:36 Diagnostic Findings No new imaging PG Care Time/CCT Total # of Minutes Spent Total Time Spent with Patient: Total time spent is greater than 50% in coordination of care (as documented) at patient's floor/unit and/or counseling patient: Coding Level of Care Code 35327 Subseq Hosp Care Lvl 2 Diagnoses Acute respiratory failure with hypoxia J96.[address] R93.89 Multiple myeloma C90.00
[2022-03-14] MEDS: CYANOCOBALAMIN (B-12) 500 MCG TABLET PO SCH ×3 (09:19→13:02)
[2022-03-14] MEDS: METOPROLOL TARTRATE 25 MG TAB PO SCH ×4 (09:20→20:45)
[2022-03-14] MEDS: ACYCLOVIR 400 MG TAB PO SCH ×4 (09:20→20:45)
[2022-03-14] MEDS: FLUTICASONE/VILANTEROL 200/25MCG 14 PUFFS/INHALER INH SCH (09:21)
[2022-03-14] MEDS: ENOXAPARIN 100 MG/1ML SYR SQ SCH ×2 (09:21→20:46)
[2022-03-14] MEDS: FUROSEMIDE 20 MG TAB PO SCH ×3 (09:22→13:02)
[2022-03-14] MEDS: FLUCONAZOLE 100 MG TAB PO SCH ×3 (09:22→13:02)
[2022-03-14] MEDS: SULFAMETHOXAZOLE/TRIMETHOPRIM DS 800/160MG TAB PO SCH ×5 (09:22→20:44)
[2022-03-14] MEDS: PANTOprazole 40 MG TAB PO SCH ×3 (09:23→13:02)
[2022-03-14] MEDS: allopurinoL 100 MG TAB PO SCH ×4 (09:23→20:47)
[2022-03-14] MEDS: DUTASTERIDE 0.5MG PO SCH ×3 (09:23→13:02)
[2022-03-14] MEDS: DOCUSATE SODIUM/SENNA 50/8.6MG TAB PO SCH ×3 (09:25→13:02)
--- NOTE | 2022-03-14 12:12 | Neurology Consultation ---
Date of Consultation March 14, 2022 Assessment & Plan (1) Muscle weakness (generalized): (2) Fatigue: (3) Cryptococcal pneumonitis: (4) Acute respiratory failure with hypoxia: (5) Light chain myeloma: this patient is complicated and has a history of myeloma with ongoing chemotherapy, pneumonia and respiratory failure with hypoxia requiring a prolonged admission, with diagnoses of cryptococcal and Pneumocystis pneumonia he is getting fluconazole and Bactrim. The patient has considerable generalized weakness and fatigue chronically but this was worse recently. he does not have a weakness pattern consistent with myopathy (proximal weakness). Although I cannot entirely exclude myasthenia gravis his picture is not overly consistent with this. He actually has fairly good strength on exam. recommendations: 1. obtain CK and aldolase. 2. obtain acetylcholine receptor antibodies ( binding, modulating, and blocking) 3. consider EMG nerve conduction studies as an outpatient to more fully evaluate his weakness. 4. Physical and occupational therapy. 5. could give a trial of 60 mg pyridostigmine X1, to see if this helps his weakness. 6. Otherwise I will follow and can see as an outpatient. Overall I spent a total of 75 minutes with this case including review of records, direct evaluation the patient at bedside, and discussion of the case with the patient and RN at bedside, and Dr. Pruett, including differential diagnosis and treatment options. History of Present Illness Reason for Consultation: patient is a 76-year-old, who I was asked to see at the request of Dr. Pruett, for neurologic consultation regarding weakness, question myasthenia Requesting Physician: Seble Attending Physician: Bony Pruett MD History of Present Illness patient tells me he has been weak the last 6 years. He has a history of multiple myeloma , diagnosed in 2016, status post stem cell transplant in 2017. he has a history of pulmonary embolism and a history of pneumothorax in 2019 with a lung biopsy. He has been receiving chemotherapy intermittently and was taking dexamethasone once a week, on weeks he was not getting the chemotherapy. He is chronically anticoagulated. He was having issues with pneumonia and had a positive serum cryptococcal antigen. A lumbar puncture January 28 was clear and colorless and had 2 white cells, protein of 52 and negative cryptococcus on [employer]. He has been treated with fluconazole for a month. He is also being treated with Bactrim for the last several weeks for Pneumocystis. he was admitted March 01 for shortness of breath and has been followed by pulmonology since. He has had respiratory failure with hypoxia and increased lesions on CT scan of the chest. LUIS profile 12 Feb 2030 of was unremarkable. The patient has been weak for 6 years she believes. He has been worse over the last 2 months. Legs are worse than the arms and they are symmetrical. The weakness is chronic whether he gets a good night's sleep or not. He has no pain in the spine or limbs or numbness. He does have shortness of breath. Occasionally has some trouble swallowing pills but does not have any trouble swallowing liquids. His speech is otherwise unremarkable and he denies double vision or droopy eyelids. He walks with a walker and says his knees can buccal. CT scan of the head March 04 was unremarkable. CBC shows mild anemia. Chem profile is largely unremarkable. Allergies Allergy/AdvReac Type Severity Reaction Status Date / Time dexamethasone AdvReac Severe Hallucinati Verified 03/01/22 16:21 on prednisone AdvReac Severe hallucinati Verified 03/06/22 08:00 ons meclizine AdvReac Intermediate HALLUCINATI Verified 03/01/22 16:21 ON hydrocodone AdvReac Mild AGITATION Verified 03/01/22 16:21 levofloxacin [From Levaquin] AdvReac Mild muscle Verified 03/01/22 16:21 weakness lisinopril AdvReac Mild Dizziness Verified 03/01/22 16:21 Home Medications Medication Instructions Recorded Confirmed Type acetaminophen 500 mg tablet 1,000 mg PO Q8 PRN 06/28/18 03/01/22 History (Acetaminophen Extra Strength) daratumumab 20 mg/mL intravenous 0 mg IV MONTHLY 06/28/18 03/01/22 History solution polyethylene glycol 3350 17 17 g PO DAILY PRN 06/28/18 03/01/22 History gram/dose oral powder (Miralax) pomalidomide 4 mg capsule 4 mg PO DIRECTED 06/29/18 03/01/22 History acyclovir 400 mg tablet 400 mg PO BID 08/02/18 03/01/22 History pegfilgrastim 6 mg/0.6 mL 6 mg SUBCUT DIRECTED 08/02/18 03/01/22 History (deliverable) wearable subcutaneous injector (Neulasta Onpro) citalopram 10 mg tablet 10 mg PO QAM 04/25/19 03/01/22 History zoledronic acid 4 mg/5 mL 0 mg IV .Q 3 MONTHS 04/25/19 03/01/22 History intravenous solution levalbuterol tartrate 45 1 puffs INH Q6H PRN #15 gm 12/05/19 03/01/22 Rx mcg/actuation aerosol inhaler montelukast 10 mg tablet 10 mg PO MONTHLY PRN tab 07/25/20 03/01/22 History (Singulair) furosemide 20 mg tablet (Lasix) 20 mg PO QAM 02/28/21 03/01/22 History fluticasone furoate 200 1 inh INHALATION QAM 10/15/21 03/01/22 History mcg-vilanterol 25 mcg/dose inhalation powder (Breo Ellipta) dexamethasone 4 mg tablet 8 mg PO WK 11/16/21 03/01/22 History enoxaparin 150 mg/mL subcutaneous See Rx Instructions SUBCUT DAILY 02/20/22 03/01/22 Rx syringe (Lovenox) #30 syr allopurinol 100 mg tablet 100 mg PO BID #180 tab 02/23/22 03/01/22 Rx potassium citrate 10 mEq (1,080 10 meq PO BID 90 Days #180 tab 02/23/22 03/01/22 Rx mg) tablet,extended release (Urocit-K 10) dutasteride 0.5 mg capsule 0.5 mg PO QAM #90 cap 02/26/22 03/01/22 Rx fluconazole 100 mg tablet 400 mg PO DAILY 03/01/22 03/01/22 History Patient History Medical History (HFpEF) heart failure with preserved ejection fraction Anemia BASELINE 8-9 RANGE BPH loc w urin obs/LUTS Calculus of kidney Cancer MULTIPLE MYELOMA (DX'D 2015); stem cell transplant, chemo Cryptococcal pneumonitis Current use of jail anticoagulation Depression GERD (gastroesophageal reflux disease) Gout History of nephrolithiasis History of pneumothorax 2019 with lung biopsy History of pulmonary embolism [place] (hard of hearing) Irregular heartbeat 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 Port-A-Cath in place Left chest Pulmonary embolism 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); 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 SOB (shortness of breath) on exertion Thrombocytopenia Tremor Surgical History Bone marrow replaced by transplant History of cataract surgery RT History of chest tube placement History of lung biopsy benign Family History Father Cardiac disorder Heart disease Mother Cancer Stroke Other No family history of adverse response to anesthesia Social History Smoking Status: Unknown if ever smoked Second Hand Exposure: No; Hx Alcohol Use: No Hx Substance Use: No Preferred Language: Polish Communication Ability: Effective Visual Impairment: No Limitations Advertising Agent Required: Yes Beliefs That Will Affect Care: None marital status: Current Living Situation: Spouse current occupational status: retired How many Children do You have: 0 Feels Safe at Home: Yes Safety Concerns: Feels Safe At This Time during the past year weight has: remained stable Assistive Devices: Walker Review of Systems Constitutional: + fatigue and + weakness; no fever Eyes: no diplopia, no eye pain and no worsening vision Ear, Nose, Mouth, Throat: no ear pain, no tinnitus, no hearing loss, no dizziness, no snoring, no hoarseness and no dysphagia Respiratory: no cough and no dyspnea Cardiovascular: no chest pain, no palpitations and no lightheadedness Gastrointestinal: no abdominal pain, no nausea and no vomiting Musculoskeletal: no back pain, no neck pain, no radicular pain, no joint pain and no myalgia Integumentary: no rash and no lesions Neurologic: + generalized weakness; no gait abnormality, no localized weakness, no tingling, no numbness, no tremor(s), no abnormal movements, no headache(s), no abnormal speech, no confusion and no memory loss Psychiatric: no depression, no irritability, no anxiety, no difficulty concentrating, no confusion and no hallucinations Endocrine: no fatigue and no flushing Hematologic / Lymphatic: no easy bleeding and no easy bruising Allergy / Immunological: no urticaria and no problem reported Exam (Neuro) Physical Exam: The patient is right-handed. The patient is awake, alert, and attentive. Speech is normal without any aphasia or dysarthria. The patient can name objects, repeat phrases, and has normal spontaneous speech. Mentation and thought processes are intact, with orientation to person, place and time, and normal fund of knowledge. Attention and concentration are normal. Mood and affect are normal and appropriate. General appearance and grooming are normal. Short and long-term memory are intact. Pupils are 3 mm bilaterally and reactive to light. Extraocular eye muscles are intact without nystagmus. he has no dysconjugate gaze. Eyelids open to a mm above the cornea bilaterally and they do not lag or fatigue with sustained upgaze. Visual acuity and visual willis seem normal grossly to confrontation. repetitive Lip, tongue, and palate speech testing was normal and he does not tire. There are no deficits to sensation in the face in all 3 distributions of the fifth cranial nerve bilaterally. Corneal reflexes are positive bilaterally. Facial strength and symmetry was normal bilaterally. Hearing seems normal bilaterally. Palate moves well without asymmetry. There is normal sternocleid omastoid and trapezius (shoulder shrug) strength bilaterally. Tongue is midline . The tongue is mildly weak at 4+/ 5 bilaterally. Neck has a full range of motion without discomfort. There are no cervical bruits bilaterally. There are no cranial or ocular bruits. Heart is without murmur. There is a regular rhythm and rate. Cervical, thoracic, and lumbar spine are nontender to palpation. Gait was not tested, but stance sitting up in bed is reasonable, although he tires quickly and leans back With outstretched arms there is no drift. There are no resting, postural, or action tremors. There is no ataxia with finger to nose testing. There is good facility in the hands. No other abnormal involuntary movements are noted. Motor strength is 5/5 diffusely in the arms bilaterally including deltoids, biceps, triceps, brachioradialis, wrist flexors and extensors, ice hockey coach, and intrinsic hand muscles. Motor strength is 5/5 diffusely in the legs bilaterally including hip flexors, quadriceps, hamstrings, gastrocnemius, tibialis anterior, tibialis posterior, and Peroneii muscles. Toe extensors are normal and there is good bulk in the extensor digitorum brevis muscles bilaterally. The limbs have good tone without rigidity or spasticity. There is no atrophy noted in the muscles. Muscle bulk is normal, there is no tenderness to palpation, no myotonia to percussion, and no fasciculations seen. Sensory examination is intact to touch and pin throughout all 4 limbs diffusely. Reflexes are 1/4 in the biceps, triceps, brachioradialis, and quadriceps tendons bilaterally. Achilles tendon reflexes were absent bilaterally. There is no clonus bilaterally. Toes are downgoing with plantar stimulation bilaterally. Peripheral pulses are present and of normal quality distally in all 4 limbs. There is no peripheral edema noted in the limbs. Results & Data ([facility]) Vital Signs (Past 12 Hours) Vital Signs Temp Pulse Pulse Pulse Resp BP BP 03/14/22 11:11 36.9 C 105 H 18 118/77 03/14/22 07:19 96 H 03/14/22 07:15 36.9 C 96 H 18 119/72 03/14/22 06:16 36.9 C 96 H 20 119/72 03/14/22 03:27 37 C 96 H 18 126/73 03/14/22 00:31 95 H Pulse Ox 03/14/22 11:11 92 03/14/22 07:19 03/14/22 07:15 92 03/14/22 06:16 91 03/14/22 03:27 911 H 03/14/22 00:31 PG Care Time/CCT Total # of Minutes Spent Total Time Spent with Patient: Total time spent is greater than 50% in coordination of care (as documented) at patient's floor/unit and/or counseling patient: Coding Level of Care Code 66445 Initial Inpt Care Lvl 3 Diagnoses Muscle weakness (generalized) M62.81 Cryptococcal pneumonitis B45.0 Acute respiratory failure with hypoxia J96.01 Fatigue R53.83 Light chain myeloma C90.00 Time Spent (min) 75
[2022-03-14] MEDS: PYRIDOSTIGMINE BROMIDE 60 MG TAB PO SCH ×3 (12:52→20:46)
--- NOTE | 2022-03-14 16:19 | Hospitalist Progress Note ---
Date of Service March 14, 2022 Assessment & Plan (1) Shortness of breath: Plan: Presents with worsening shortness of breath, acute respiratory failure with hypoxia, with worsening ground-glass opacities on CT angiogram chest. Negative for PE. -->Recent admission January 2022 for acute appendicitis treated with antibiotics/no surgery Currently being treated for cryptococcal pneumonia with over 1 month of fluconazole Currently on NC 2LPM O2 however was not in his nose when seen Suspect all secondary to pneumonia-he is immunocompromised due to history of myeloma on chemotherapy - discussed with Dr Alvarez today. Serum Ag positive for cryptococcus but also treating for PCP with bactrim. Continue home inhalers, incentive spirometer Continue to monitor Patient had bronch ON 03/10 Appreciate pulmonology management of suspected PCP + cryptoccocus pneumonia (2) Fatigue: Plan: Some concerning history for myasthenia. Will serially measure VC and NIF qshift. Myasthenia Ab pending - to be followed up as outpatient Consult neurology - discussed with Dr Dumont. Will follow up as outpatient but agrees to trial of pyridostigmine. Trial of pyridostigmine today. (3) Acute respiratory failure with hypoxia: Plan: As above (4) Cryptococcal pneumonitis: Plan: Continue fluconazole 400 mg p.o. once daily Holding chemotherapy for the last 2 months Prior LP in January - unless significantly not returning to baseline no plans on repeat this as he had cryptococcal pneumonia at this time. (5) B12 deficiency: Plan: checked, B12 level 162 pg/ml should also help with anemia and possible altered mental status +/- fatigue Cyanocobalamin 1000 mcg IM given 03/02 - 03/06 [5 doses], start PO supplementation (6) Diarrhea: Plan: Resolved (7) History of pulmonary embolism: Plan: Continue Lovenox 1 mg/kg SQ BID Follows with anticoagulation clinic Previously on Coumadin but has been held while he is on fluconazole and they had been utilizing Lovenox (8) (HFpEF) heart failure with preserved ejection fraction: Plan: No acute issues, does not appear hypervolemic Continue home Lasix 20 Mg p.o. once daily Continue blood pressure control (9) Light chain myeloma: Plan: Follows with oncology at [facility] Holding all home chemotherapy due to recent infection Continue suppressive acyclovir 400 mg p.o. twice daily (10) Hypokalemia: Plan: Resolved (11) Thrombocytopenia: Plan: Mild at 117 Likely secondary to acute illness Follow CBC (12) Anemia: Plan: Mild and at baseline Follow CBC Normocytic but was macrocytic. Patient does have hx myeloma though Did check B12 given gait/memory --> LOW 162 AND IM REPLACEMENT ORDERED INPATIENT, PO AT DISCHARGE REC'D (13) BPH loc w urin obs/LUTS: Plan: No acute issues Bladder scan as needed Continue home dutasteride (14) GERD (gastroesophageal reflux disease): Plan: Continue home PPI mag replaced and repeat wnl (15) Osteoporosis 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: (16) Depression: Plan: Continue home Celexa (17) Calculus of kidney: Plan: With a history of uric acid stones, follows with urology Continue home Urocit-K and allopurinol Plan: DVT prophylaxis-Lovenox, SCDs DNR/DNI Continued inpatient stay pending trial of pyridostigmine, PT/OT consults recommending rehab Admission and Anticipated Discharge Date Admission Date: March 01, [address] Dumont - will trial pyridostigmine. concerned he remains confused but much improved since steroids stopped. No change in shortness of breath or generalized fatigue today. Review of Systems Review of Systems: All systems reviewed & are unremarkable except as noted in Subjective Physical Exam Constitutional: well developed; + not well nourished Respiratory: normal respiratory effort, lungs clear to auscultation Cardiovascular: RRR, no murmur, no edema Gastrointestinal (Abdomen): normal bowel sounds, soft, nontender, no hepatosplenomegaly Musculoskeletal: Extremities: extremities normal to inspection Skin: no rashes, warm and dry Neurologic: moves all extremities, awake and + confused Psychiatric: Orientation: alert, oriented to person, oriented to place and oriented to time (year only) Results & Data Results & Data ([facility]) Vital Signs (Past 12 Hours) Vital Signs Temp Pulse Pulse Pulse Resp BP Pulse Ox 03/14/22 15:34 36.7 C 90 20 121/86 95 03/14/22 15:32 90 03/14/22 11:11 36.9 C 105 H 18 118/77 92 03/14/22 07:19 96 H 03/14/22 07:15 36.9 C 96 H 18 119/72 92 03/14/22 06:16 36.9 C 96 H 20 119/72 91 PG Care Time/CCT Total # of Minutes Spent Total Time Spent with Patient: Total time spent is greater than 50% in coordination of care (as documented) at patient's floor/unit and/or counseling patient: Coding Level of Care Code 28303 Subseq Hosp Care Lvl 2 Diagnoses Shortness of breath R06.02 Fatigue R53.83 Acute respiratory failure with hypoxia J96.01 Cryptococcal pneumonitis B45.0 Diarrhea R19.7 History of pulmonary embolism Z86.711 (HFpEF) heart failure with preserved ejection fraction I50.30 Light chain myeloma C90.00 Hypokalemia E87.6 Thrombocytopenia D69.6 Anemia D64.9 BPH loc w urin obs/LUTS N40.1 GERD (gastroesophageal reflux disease) K21.9 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
[2022-03-15] MEDS: FLUTICASONE/VILANTEROL 200/25MCG 14 PUFFS/INHALER INH SCH (07:52)
[2022-03-15] MEDS: DUTASTERIDE 0.5MG PO SCH (07:53)
[2022-03-15] MEDS: SULFAMETHOXAZOLE/TRIMETHOPRIM DS 800/160MG TAB PO SCH ×4 (07:54→20:19)
[2022-03-15] MEDS: FUROSEMIDE 20 MG TAB PO SCH (07:54)
[2022-03-15] MEDS: PANTOprazole 40 MG TAB PO SCH (07:54)
[2022-03-15] MEDS: METOPROLOL TARTRATE 25 MG TAB PO SCH ×2 (07:54→20:16)
[2022-03-15] MEDS: PYRIDOSTIGMINE BROMIDE 60 MG TAB PO SCH (07:55)
[2022-03-15] MEDS: FLUCONAZOLE 100 MG TAB PO SCH (07:55)
[2022-03-15] MEDS: allopurinoL 100 MG TAB PO SCH ×2 (07:56→20:19)
[2022-03-15] MEDS: CYANOCOBALAMIN (B-12) 500 MCG TABLET PO SCH (07:56)
[2022-03-15] MEDS: ACYCLOVIR 400 MG TAB PO SCH ×2 (07:56→20:16)
[2022-03-15] MEDS: DOCUSATE SODIUM/SENNA 50/8.6MG TAB PO SCH (07:56)
[2022-03-15] MEDS: ENOXAPARIN 100 MG/1ML SYR SQ SCH ×2 (07:57→20:17)
[2022-03-15 09:02] LABS: BUN Creatinine Ratio 12.6 (10-20); Calcium 8.7 mg/dl (8.5-10.1); Creatinine Clr Calc Pharmacy 51.1 ml/min; Est GFR (African American) 63.2 ml/min; Est GFR (Non-African American) 54.5 ml/min; Phosphorus 3.2 mg/dl (2.5-4.9); Potassium 3.8 mmol/L (3.5-5.1)
--- NOTE | 2022-03-15 09:41 | Hospitalist Progress Note ---
Date of Service March 15, 2022 Assessment & Plan (1) Shortness of breath: Plan: Presents with worsening shortness of breath, acute respiratory failure with hypoxia, with worsening ground-glass opacities on CT angiogram chest. Negative for PE. -->Recent admission January 2022 for acute appendicitis treated with antibiotics/no surgery Currently being treated for cryptococcal pneumonia with over 1 month of fluconazole Now back on room air. Shortness of breath improved Suspect all secondary to pneumonia-he is immunocompromised due to history of myeloma on chemotherapy. Patient had bronchoscopy 03/10 - yeast, not rubin growing on fungal culture. Suspected PCP on pathology. Serum Cryptoccus Ag positive. Appreciate pulmonology management of suspected PCP + cryptococcus pneumonia (2) PCP (pneumocystis jiroveci pneumonia): Plan: Suspected from bronchoscopy pathology Continue Bactrim 21 day course (3) Cryptococcal pneumonitis: Plan: Continue fluconazole 400 mg p.o. once daily - likely for 1 year duration Holding chemotherapy for the last 2 months Prior LP in January - without cryptococcus (of note titre reported under "other body source" is noted as CSF however this was confirmed with the lab this was his serum sample) (4) Fatigue: Plan: Some concerning history for myasthenia. Myasthenia Ab pending - to be followed up as outpatient No definitive improvement with pyridostigmine but given delirium difficult to tell for sure. Given worsening confusion possibly caused by pyridostigmine will hold further doses. CK negative. Aldolase recommended by neurology and currently pending Follow up with neurology as outpatient (5) Acute respiratory failure with hypoxia: Plan: As above (6) B12 deficiency: Plan: checked, B12 level 162 pg/ml should also help with anemia and possible altered mental status +/- fatigue Cyanocobalamin 1000 mcg IM given 03/02 - 03/06 [5 doses], started PO supplementation (7) Diarrhea: Plan: Resolved (8) History of pulmonary embolism: Plan: Continue Lovenox 1 mg/kg SQ BID Follows with anticoagulation clinic Previously on Coumadin but has been held while he is on fluconazole and they had been utilizing Lovenox (9) (HFpEF) heart failure with preserved ejection fraction: Plan: No acute issues, does not appear hypervolemic Continue home Lasix 20 Mg p.o. once daily (10) Light chain myeloma: Plan: Follows with oncology at [facility] Holding all home chemotherapy due to recent infection Continue suppressive acyclovir 400 mg p.o. twice daily (11) Hypokalemia: Plan: Resolved (12) Thrombocytopenia: Plan: Mild at 117 Likely secondary to acute illness Follow CBC (13) Anemia: Plan: Mild and at baseline Follow CBC Normocytic but was macrocytic. Patient does have hx myeloma though Did check B12 given gait/memory --> LOW 162 AND IM REPLACEMENT ORDERED INPATIENT, PO AT DISCHARGE REC'D (14) BPH loc w urin obs/LUTS: Plan: No acute issues Bladder scan as needed Continue home dutasteride (15) GERD (gastroesophageal reflux disease): Plan: Continue home PPI mag replaced and repeat wnl (16) Osteoporosis 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: (17) Depression: Plan: Continue home Celexa (18) Calculus of kidney: Plan: With a history of uric acid stones, follows with urology Continue home Urocit-K and allopurinol Plan: DVT prophylaxis-Lovenox, SCDs DNR/DNI Medically stable at this time pending rehab placement Admission and Anticipated Discharge Date Admission Date: March 01, 2022 Subjective Increased delirium this morning with hallucinations (seeing people who weren't there) and 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 Requiring one to one supervision to be safe. Did not require anti-psychotics however and improved throughout the day when his daughter arrived at bedside. Ongoing confusion but orientated to year and person. Aware he is in [place]. Appears more awake, alert and less fatigued having had pyridostigmine this morning although clinical picture is unclear given his current delirium. Review of Systems Review of Systems: All systems reviewed & are unremarkable except as noted in Subjective Physical Exam Constitutional: well developed; + not well nourished Respiratory: normal respiratory effort, lungs clear to auscultation Cardiovascular: RRR, no murmur, no edema Gastrointestinal (Abdomen): normal bowel sounds, soft, nontender, no hepatosplenomegaly Musculoskeletal: Extremities: extremities normal to inspection Skin: no rashes, warm and dry Neurologic: moves all extremities, awake and + confused Psychiatric: Orientation: alert, oriented to person (town), oriented to place and oriented to time (year only) Hallucinations: + visual hallucinations Results & Data Results & Data ([facility]) Vital Signs (Past 12 Hours) Vital Signs Temp Pulse Pulse Resp BP Pulse Ox 06/12/22 08:14 36.5 C 83 20 145/78 H 95 03/15/22 04:58 72 03/15/22 02:59 37 C 86 18 113/73 94 03/14/22 23:02 36.6 C 89 20 122/78 97 PG Care Time/CCT Total # of Minutes Spent Total Time Spent with Patient: Total time spent is greater than 50% in coordination of care (as documented) at patient's floor/unit and/or counseling patient: Coding Level of Care Code 59363 Subseq Hosp Care Lvl 2 Diagnoses Shortness of breath R06.02 Fatigue R53.83 Acute respiratory failure with hypoxia J96.01 Cryptococcal pneumonitis B45.0 B12 deficiency E53.8 Diarrhea R19.7 History of pulmonary embolism Z86.711 (HFpEF) heart failure with preserved ejection fraction I50.30 Light chain myeloma C90.00 Hypokalemia E87.6 Thrombocytopenia D69.6 Anemia D64.9 BPH loc w urin obs/LUTS N40.1 GERD (gastroesophageal reflux disease) K21.9 Osteoporosis 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 M81.8; C90.00 Depression F32.9 Calculus of kidney N20.0 PCP (pneumocystis jiroveci pneumonia) B59
[2022-03-15] MEDS: ONDANSETRON INJ 2 MG/ML 2 ML VIAL IV PRN (10:02)
--- NOTE | 2022-03-15 12:31 | Electrocardiogram Report ---
Test Reason : Blood Pressure : / mmHG Vent. Rate : 081 BPM Atrial Rate : 081 BPM P-R Int : 146 ms QRS Dur : 092 ms QT Int : 442 ms P-R-T Axes : 030 -30 060 degrees QTc Int : 513 ms Poor data quality, interpretation may be adversely affected Normal sinus rhythm with sinus arrhythmia Left axis deviation Minimal voltage criteria for LVH, may be normal variant Abnormal ECG When compared with ECG of 08-MAR-2022 17:01, Premature atrial complexes are no longer Present ST no longer depressed in Anterior leads Confirmed by Saman Vasquez [id number] on 03/15/2022 12:31:35 PM Referred By: REFERRED SELF Confirmed By:Chucho Vasquez
[2022-03-16 00:57] LABS: Source LUNG BIOPSY; Source LUNG BIOSPY
[2022-03-16 07:09] LABS: BUN Creatinine Ratio 12.4 (10-20); Creatinine Clr Calc Pharmacy 57.4 ml/min; Est GFR (African American) 72.8 ml/min; Est GFR (Non-African American) 62.8 ml/min
--- NOTE | 2022-03-16 10:07 | Neurology Progress Note ---
Date of Service March 16, 2022 Assessment & Plan (1) Muscle weakness (generalized): (2) Fatigue: (3) Cryptococcal pneumonitis: (4) PCP (pneumocystis jiroveci pneumonia): (5) B12 deficiency: (6) Light chain myeloma: Plan: Multifactorial fatigue and subjective weakness in a 76-year-old male with a history of multiple myeloma, status post bone marrow transplant, chemotherapy, cryptococcal pneumonitis, PCP pneumonia, long-term corticosteroid use and B12 deficiency. Notably, patient does not have specific or focal weakness on his neurological examination. No ptosis, ophthalmoplegia, or more specific proximal or distal weakness pattern. Normal CK recently. Myopathy probably unlikely. Myasthenia gravis or other associated myasthenic syndrome probably unlikely. Follow-up with pertinent labs when available. Continue with vitamin B12 supplementation. Consider outpatient EMG as previously suggested to further assess for underlying neuropathy, myopathy, or neuromuscular junction abnormality. Continue supportive medical care. No further neurologic re commendations at this time. Admission and Anticipated Discharge Date Admission Date: March 01, 2022 Subjective Follow-up for weakness The patient is a 76-year-old male with multiple myeloma, status post stem cell transplantation, on chemotherapy and corticosteroids, presented with shortness of breath on March 01, diagnosed with cryptococcal pneumonitis, hypoxia, pulmonary infiltrate. Neurology was consulted March 14 for weakness, was seen by Dr. Dumont at that time. Although patient was not specifically weak on neurological examination at that time, there was some concern for possible underlying neuromuscular issue and additional evaluation was recommended including CK, a ldolase, acetylcholine receptor antibodies, consideration of outpatient EMG nerve conduction studies, as well as a trial of Mestinon. This morning, the patient is somewhat somnolent but he arouses easily from sleep. He does not have ptosis, or ophthalmoplegia although his voice is somewhat soft and hoarse sounding. He does not have any specific or focal weakness on his examination. Review of Systems Constitutional: + fatigue and + weakness Eyes: no diplopia Neurologic: + generalized weakness; no paresthesia, no tremor(s), no headache(s) and no abnormal speech Results & Data ([facility]) Vital Signs (Past 12 Hours) Vital Signs Temp Resp BP Pulse Ox 03/16/22 04:31 36.6 C 20 126/71 90 Laboratory Results Total CK19. Patient did have a low vitamin B12 level from March 02, 2022, 162. Aldolase pending. Acetylcholine receptor antibodies pending. Diagnostic Findings CT of the head completed March 04, 2022 was unremarkable. Exam (Neuro) Neurologic: Oriented to:: Person and Place Attention: Span Intact; negative Concentration Intact Speech Fluency: Other (mildly horse voice) Fund of Knowledge: Vocabulary Cranial Nerves: Normal II, III, IV, , V, VII, VIII, IX, X, XI and XII Motor Strength: Normal Lower Extremities and Normal Upper Extremities Muscle Bulk/Involuntary Movements: No Involuntary Movements Sensation: Light Touch Intact and Pain/Temperature Intact Coordination: negative Finger-Nose Abnormal Deep Tendon Reflexes: Rt Biceps: 1+, Lt Biceps: 1+, Lt Patellar: 1+ and Rt Ankle: 1+ Coding Level of Care Code 18976 Subseq Hosp Care Lvl 2 Diagnoses Muscle weakness (generalized) M62.81 Fatigue R53.83 Cryptococcal pneumonitis B45.0 PCP (pneumocystis jiroveci pneumonia) B59 B12 deficiency E53.8 Light chain myeloma C90.00
[2022-03-16] MEDS: SULFAMETHOXAZOLE/TRIMETHOPRIM DS 800/160MG TAB PO SCH ×5 (10:10→20:39)
[2022-03-16] MEDS: ACYCLOVIR 400 MG TAB PO SCH ×3 (10:11→20:38)
[2022-03-16] MEDS: CITALOPRAM 20 MG TAB PO SCH (10:11)
[2022-03-16] MEDS: FLUCONAZOLE 100 MG TAB PO SCH (10:12)
[2022-03-16] MEDS: METOPROLOL TARTRATE 25 MG TAB PO SCH ×3 (10:12→20:39)
[2022-03-16] MEDS: FUROSEMIDE 20 MG TAB PO SCH (10:12)
[2022-03-16] MEDS: CYANOCOBALAMIN (B-12) 500 MCG TABLET PO SCH (10:13)
[2022-03-16] MEDS: PANTOprazole 40 MG TAB PO SCH (10:13)
[2022-03-16] MEDS: ENOXAPARIN 100 MG/1ML SYR SQ SCH ×2 (10:14→20:12)
[2022-03-16] MEDS: allopurinoL 100 MG TAB PO SCH ×3 (10:14→20:38)
[2022-03-16] MEDS: FLUTICASONE/VILANTEROL 200/25MCG 14 PUFFS/INHALER INH SCH (10:15)
[2022-03-16] MEDS: DOCUSATE SODIUM/SENNA 50/8.6MG TAB PO SCH (10:18)
[2022-03-16] MEDS: DUTASTERIDE 0.5MG PO SCH (10:48)
--- NOTE | 2022-03-16 13:23 | Hospitalist Progress Note ---
Date of Service March 16, 2022 Assessment & Plan (1) PCP (pneumocystis jiroveci pneumonia): Plan: Suspected from bronchoscopy pathology from bronch on 03/10. - Continue Bactrim 21 day course - Repeat CT chest in 4-6 weeks. 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 Prior LP in January - without cryptococcus (of note titre reported under "other body source" is noted as CSF however this was confirmed with the lab this was his serum sample) - Continue fluconazole 400 mg p.o. once daily - likely for 1 year duration - Holding chemotherapy for the last 2 months (3) Fatigue: Plan: Some concerning history for myasthenia. No definitive improvement with pyridostigmine but given delirium difficult to tell for sure. Given worsening confusion possibly caused by pyridostigmine will hold further doses. - Myasthenia Ab pending - to be followed up as outpatient - CK negative. Aldolase recommended by neurology and currently pending - Follow up with neurology as outpatient for outpatient EMG (4) Acute respiratory failure with hypoxia: Plan: As above (5) B12 deficiency: Plan: B12 level was 162 pg/ml. Cyanocobalamin 1000 mcg IM given 03/02 - 03/06 [5 doses]. - Continue PO supplementation. (6) Diarrhea: Plan: Resolved. (7) History of pulmonary embolism: Plan: Previously on Coumadin but has been held while he is on fluconazole and they had been utilizing Lovenox. - Continue home Lovenox 1 mg/kg SQ BID - Follows with anticoagulation clinic (8) (HFpEF) heart failure with preserved ejection fraction: Plan: No acute issues, does not appear hypervolemic. - Continue home Lasix 20 Mg p.o. once daily (9) Light chain myeloma: Plan: Follows with oncology at [facility]. Holding all home chemotherapy due to recent infection. - Continue suppressive acyclovir 400 mg p.o. twice daily (10) Thrombocytopenia: Plan: Mild at 117. Likely secondary to acute illness. - Follow CBC (11) Anemia: Plan: Mild and at baseline. Likely some element of B12 deficiency as well as anemia of chronic disease. - Follow CBC - B12 supplement on discharge. (12) BPH loc w urin obs/LUTS: Plan: No acute issues. - Bladder scan as needed - Continue home dutasteride (13) GERD (gastroesophageal reflux disease): Plan: Mag replaced and repeat wnl - Continue home PPI (14) Osteoporosis 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: (15) Depression: Plan: - Continue home Celexa (16) Calculus of kidney: Plan: With a history of uric acid stones, follows with urology. - Continue home Urocit-K and allopurinol Admission and Anticipated Discharge Date Admission Date: March 01, 2022 Subjective Tired and fairly weak today. No focal complaints. He does start to fall back asleep in between conversations. Reports no fevers/chills, chest pain, shortness of breath, abdominal pain, nausea, or vomiting. Physical Exam Constitutional: WD/WN, vitals as above Eyes: EOM intact bilaterally; no conjunctival abnormality ENMT: external ear and nose normal, oropharynx normal Neck: trachea midline, no thyromegaly normal visual inspection Respiratory: normal respiratory effort, lungs clear to auscultation no respiratory distress Cardiovascular: RRR, no murmur, no edema Gastrointestinal (Abdomen): Inspection/Auscultation: abdomen normal to inspection; abdomen not distended Musculoskeletal: no cyanosis or clubbing, extremities motor strength 5/5 Skin: no rashes, warm and dry Neurologic: moves all extremities and awake Psychiatric: Orientation: alert, oriented to person and cooperative Results & Data Results & Data ([facility]) Vital Signs (Past 12 Hours) Vital Signs Temp Resp BP Pulse Ox 03/16/22 04:31 36.6 C 20 126/71 90 PG Care Time/CCT Total # of Minutes Spent Total Time Spent with Patient: Total time spent is greater than 50% in coordination of care (as documented) at patient's floor/unit and/or counseling patient: Coding Level of Care Code 20903 Subseq Hosp Care Lvl 2 Diagnoses PCP (pneumocystis jiroveci pneumonia) B59 Cryptococcal pneumonitis B45.0 Fatigue R53.83 Acute respiratory failure with hypoxia J96.01 B12 deficiency E53.8 Diarrhea R19.7 History of pulmonary embolism Z86.711 (HFpEF) heart failure with preserved ejection fraction I50.30 Light chain myeloma C90.00 Thrombocytopenia D69.6 Anemia D64.9 BPH loc w urin obs/LUTS N40.1 GERD (gastroesophageal reflux disease) K21.9 Osteoporosis 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 M81.8; C90.00 Depression F32.9 Calculus of kidney N20.0
[2022-03-17 06:55] LABS: Hematocrit (blood only) 36.2 % (42-52); Hemoglobin 12.1 g/dL (14.0-18.0); Mean Corpuscular Hemoglobin 32.4 pg (25-34); Mean Corpuscular Hgb Conc 33.4 g/dL (32-36); Mean Corpuscular Volume 96.8 fL (80-100); Mean Platelet Volume 10.3 fL (7.4-10.4); Platelet Count 118 K/uL (130-400); RDW Coefficient of Variation 17.5 % (11.5-14.5); RDW Standard Deviation 62.7 fL (36.4-46.3); Red Blood Count 3.74 M/uL (4.7-6.1); White Blood Count 5.74 K/uL (4.8-10.8)
[2022-03-17 07:20] LABS: BUN Creatinine Ratio 12.5 (10-20); Calcium 8.2 mg/dl (8.5-10.1); Creatinine Clr Calc Pharmacy 54.1 ml/min; Est GFR (African American) 67.7 ml/min; Est GFR (Non-African American) 58.4 ml/min; Magnesium 1.9 mg/dl (1.7-2.4); Potassium 3.9 mmol/L (3.5-5.1)
[2022-03-17] MEDS: ACETAMINOPHEN 500 MG TAB PO PRN (08:59)
[2022-03-17] MEDS: ONDANSETRON INJ 2 MG/ML 2 ML VIAL IV PRN (09:00)
[2022-03-17] MEDS: ACYCLOVIR 400 MG TAB PO SCH ×2 (09:04→20:26)
[2022-03-17] MEDS: SULFAMETHOXAZOLE/TRIMETHOPRIM DS 800/160MG TAB PO SCH ×4 (09:04→20:26)
[2022-03-17] MEDS: CITALOPRAM 20 MG TAB PO SCH (09:04)
[2022-03-17] MEDS: METOPROLOL TARTRATE 25 MG TAB PO SCH ×2 (09:05→20:26)
[2022-03-17] MEDS: FUROSEMIDE 20 MG TAB PO SCH (09:06)
[2022-03-17] MEDS: allopurinoL 100 MG TAB PO SCH ×2 (09:06→20:26)
[2022-03-17] MEDS: DUTASTERIDE 0.5MG PO SCH (09:06)
[2022-03-17] MEDS: FLUCONAZOLE 100 MG TAB PO SCH (09:07)
[2022-03-17] MEDS: PANTOprazole 40 MG TAB PO SCH (09:08)
[2022-03-17] MEDS: DOCUSATE SODIUM/SENNA 50/8.6MG TAB PO SCH (09:09)
[2022-03-17] MEDS: FLUTICASONE/VILANTEROL 200/25MCG 14 PUFFS/INHALER INH SCH (09:09)
[2022-03-17] MEDS: CYANOCOBALAMIN (B-12) 500 MCG TABLET PO SCH (09:09)
[2022-03-17] MEDS: ENOXAPARIN 100 MG/1ML SYR SQ SCH (09:10)
--- NOTE | 2022-03-17 15:22 | Hospitalist Progress Note ---
Date of Service March 17, 2022 Assessment & Plan (1) PCP (pneumocystis jiroveci pneumonia): Plan: Suspected from bronchoscopy pathology from bronch on 03/10. - Continue Bactrim 21 day course (End date: 04/01/2022) - Repeat CT chest in 4-6 weeks. 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 Prior LP in January - without cryptococcus (of note titre reported under "other body source" is noted as CSF however this was confirmed with the lab this was his serum sample) - Continue fluconazole 400 mg p.o. once daily - likely for 1 year duration - Holding chemotherapy for the last 2 months (3) Fatigue: Plan: Some concerning history for myasthenia. No definitive improvement with pyridostigmine but given delirium difficult to tell for sure. Given worsening confusion possibly caused by pyridostigmine will hold further doses. - Myasthenia Ab pending - to be followed up as outpatient - CK negative. Aldolase recommended by neurology and currently pending - Follow up with neurology as outpatient for outpatient EMG - Improving today. More energy; ate more, more activity. (4) Acute respiratory failure with hypoxia: Plan: As above (5) B12 deficiency: Plan: B12 level was 162 pg/ml. Cyanocobalamin 1000 mcg IM given 03/02 - 03/06 [5 doses]. - Continue PO supplementation. (6) Diarrhea: Plan: Resolved. (7) History of pulmonary embolism: Plan: Previously on Coumadin but has been held while he is on fluconazole and they had been utilizing Lovenox. - Continue home Lovenox 1 mg/kg SQ BID - Lower dose given reduced body weight. - Follows with anticoagulation clinic (8) (HFpEF) heart failure with preserved ejection fraction: Plan: No acute issues, does not appear hypervolemic. - Continue home Lasix 20 Mg p.o. once daily (9) Light chain myeloma: Plan: Follows with oncology at [facility]. Holding all home chemotherapy due to recent infection. - Continue suppressive acyclovir 400 mg p.o. twice daily (10) Thrombocytopenia: Plan: Mild at 117. Likely secondary to acute illness. - Follow CBC (11) Anemia: Plan: Mild and at baseline. Likely some element of B12 deficiency as well as anemia of chronic disease. - Follow CBC - B12 supplement on discharge. (12) BPH loc w urin obs/LUTS: Plan: No acute issues. - Bladder scan as needed - Continue home dutasteride (13) GERD (gastroesophageal reflux disease): Plan: Mag replaced and repeat wnl - Continue home PPI (14) Osteoporosis 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: (15) Depression: Plan: - Continue home Celexa (16) Calculus of kidney: Plan: With a history of uric acid stones, follows with urology. - Continue home Urocit-K and allopurinol Admission and Anticipated Discharge Date Admission Date: March 01, 2022 Subjective More energy today. Was able to sit up, eat some food, talk more. No major issues. Reports no fevers/chills, chest pain, shortness of breath, abdominal pain, nausea, or vomiting. Physical Exam Constitutional: WD/WN, vitals as above Eyes: EOM intact bilaterally; no conjunctival abnormality ENMT: external ear and nose normal, oropharynx normal Neck: trachea midline, no thyromegaly normal visual inspection Respiratory: normal respiratory effort, lungs clear to auscultation no respiratory distress Cardiovascular: RRR, no murmur, no edema Gastrointestinal (Abdomen): Inspection/Auscultation: abdomen normal to inspection; abdomen not distended Musculoskeletal: no cyanosis or clubbing, extremities motor strength 5/5 Skin: no rashes, warm and dry Neurologic: moves all extremities and awake Psychiatric: Orientation: alert, oriented to person and cooperative Results & Data Results & Data ([facility]) Vital Signs (Past 12 Hours) Vital Signs Temp Pulse Resp BP Pulse Ox 03/17/22 07:42 37.1 C 97 H 20 132/83 94 PG Care Time/CCT Total # of Minutes Spent Total Time Spent with Patient: Total time spent is greater than 50% in coordination of care (as documented) at patient's floor/unit and/or counseling patient: Coding Level of Care Code 14698 Subseq Hosp Care Lvl 2 Diagnoses PCP (pneumocystis jiroveci pneumonia) B59 Cryptococcal pneumonitis B45.0 Fatigue R53.83 Acute respiratory failure with hypoxia J96.01 B12 deficiency E53.8 Diarrhea R19.7 History of pulmonary embolism Z86.711 (HFpEF) heart failure with preserved ejection fraction I50.30 Light chain myeloma C90.00 Thrombocytopenia D69.6 Anemia D64.9 BPH loc w urin obs/LUTS N40.1 GERD (gastroesophageal reflux disease) K21.9 Osteoporosis 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 M81.8; C90.00 Depression F32.9 Calculus of kidney N20.0
[2022-03-17] MEDS: ENOXAPARIN 80 MG/0.8 ML SYR SQ SCH (20:24)
[2022-03-18 07:21] LABS: Hematocrit (blood only) 35.6 % (42-52); Hemoglobin 11.7 g/dL (14.0-18.0); Mean Corpuscular Hemoglobin 31.8 pg (25-34); Mean Corpuscular Hgb Conc 32.9 g/dL (32-36); Mean Corpuscular Volume 96.7 fL (80-100); Mean Platelet Volume 11.9 fL (7.4-10.4); Platelet Count 137 K/uL (130-400); RDW Coefficient of Variation 17.6 % (11.5-14.5); RDW Standard Deviation 62.8 fL (36.4-46.3); Red Blood Count 3.68 M/uL (4.7-6.1); White Blood Count 4.59 K/uL (4.8-10.8)
[2022-03-18 07:47] LABS: BUN Creatinine Ratio 14.8 (10-20); Calcium 8.3 mg/dl (8.5-10.1); Creatinine Clr Calc Pharmacy 53.2 ml/min; Est GFR (African American) 66.3 ml/min; Est GFR (Non-African American) 57.2 ml/min; Potassium 4.6 mmol/L (3.5-5.1)
[2022-03-18] MEDS: allopurinoL 100 MG TAB PO SCH ×2 (08:13→20:01)
[2022-03-18] MEDS: ACYCLOVIR 400 MG TAB PO SCH ×2 (08:13→19:57)
[2022-03-18] MEDS: PANTOprazole 40 MG TAB PO SCH (08:13)
[2022-03-18] MEDS: METOPROLOL TARTRATE 25 MG TAB PO SCH ×2 (08:13→20:06)
[2022-03-18] MEDS: FLUTICASONE/VILANTEROL 200/25MCG 14 PUFFS/INHALER INH SCH (08:13)
[2022-03-18] MEDS: SULFAMETHOXAZOLE/TRIMETHOPRIM DS 800/160MG TAB PO SCH ×2 (08:14→13:42)
[2022-03-18] MEDS: CITALOPRAM 20 MG TAB PO SCH (08:14)
[2022-03-18] MEDS: FLUCONAZOLE 100 MG TAB PO SCH (08:14)
[2022-03-18] MEDS: CYANOCOBALAMIN (B-12) 500 MCG TABLET PO SCH (08:14)
[2022-03-18] MEDS: ENOXAPARIN 80 MG/0.8 ML SYR SQ SCH ×2 (08:15→20:02)
[2022-03-18] MEDS: DOCUSATE SODIUM/SENNA 50/8.6MG TAB PO SCH (08:15)
[2022-03-18] MEDS: FUROSEMIDE 20 MG TAB PO SCH (08:15)
[2022-03-18] MEDS: DUTASTERIDE 0.5MG PO SCH (08:16)
--- NOTE | 2022-03-18 13:39 | Hospitalist Progress Note ---
Date of Service March 18, 2022 Assessment & Plan (1) PCP (pneumocystis jiroveci pneumonia): Plan: Suspected from bronchoscopy pathology from bronch on 03/10. - Continue Bactrim 21 day course (End date: 04/01/2022) - Repeat CT chest in 4-6 weeks. - Appreciate pulmonology recs - Improving. Off O2 at this time. (2) Cryptococcal pneumonitis: Plan: Bronchoscopy in January 2022 showed cryptococcus. Prior LP in January - without cryptococcus (of note titre reported under "other body source" is noted as CSF however this was confirmed with the lab this was his serum sample) - Continue fluconazole 400 mg p.o. once daily - likely for 1 year duration - Holding chemotherapy for the last 2 months (3) Fatigue: Plan: Some concerning history for myasthenia. No definitive improvement with pyridostigmine but given delirium difficult to tell for sure. Given worsening confusion possibly caused by pyridostigmine will hold further doses. - Myasthenia Ab pending - to be followed up as outpatient - CK negative. Aldolase recommended by neurology and currently pending - Follow up with neurology as outpatient for outpatient EMG - Improving today. Honestly think he is nearly baseline. Per , he slept quite a bit during his chemo treatments also, so possibly just his natural reaction to stress. (4) Acute respiratory failure with hypoxia: Plan: As above (5) B12 deficiency: Plan: B12 level was 162 pg/ml. Cyanocobalamin 1000 mcg IM given 03/02 - 03/06 [5 doses]. - Continue PO supplementation. (6) Diarrhea: Plan: Resolved. (7) History of pulmonary embolism: Plan: Previously on Coumadin but has been held while he is on fluconazole and they had been utilizing Lovenox. - Continue home Lovenox 1 mg/kg SQ BID - Lower dose given reduced body weight. - Follows with anticoagulation clinic (8) (HFpEF) heart failure with preserved ejection fraction: Plan: No acute issues, does not appear hypervolemic. - Continue home Lasix 20 Mg p.o. once daily (9) Light chain myeloma: Plan: Follows with oncology at [facility]. Holding all home chemotherapy due to recent infection. - Continue suppressive acyclovir 400 mg p.o. twice daily (10) Thrombocytopenia: Plan: Mild at 117. Likely secondary to acute illness. - Follow CBC -> Improving. (11) Anemia: Plan: Mild and at baseline. Likely some element of B12 deficiency as well as anemia of chronic disease. - Follow CBC - B12 supplement on discharge. (12) BPH loc w urin obs/LUTS: Plan: No acute issues. - Bladder scan as needed - Continue home dutasteride (13) GERD (gastroesophageal reflux disease): Plan: Mag replaced and repeat wnl - Continue home PPI (14) Osteoporosis 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: (15) Depression: Plan: - Continue home Celexa (16) Calculus of kidney: Plan: With a history of uric acid stones, follows with urology. - Continue home allopurinol Admission and Anticipated Discharge Date Admission Date: March 01, 2022 Subjective More energy today. Was on on the bedside commode on my first visit. On second visit, he is breathing fairly comfortably. Lying down. Would like to take a rest. Reports no fevers/chills, chest pain, shortness of breath, abdominal pain, nausea, or vomiting. Physical Exam Constitutional: WD/WN, vitals as above Eyes: EOM intact bilaterally; no conjunctival abnormality ENMT: external ear and nose normal, oropharynx normal Neck: trachea midline, no thyromegaly normal visual inspection Respiratory: normal respiratory effort, lungs clear to auscultation no respiratory distress Cardiovascular: RRR, no murmur, no edema Gastrointestinal (Abdomen): Inspection/Auscultation: abdomen normal to inspection; abdomen not distended Musculoskeletal: no cyanosis or clubbing, extremities motor strength 5/5 Skin: no rashes, warm and dry Neurologic: moves all extremities and awake Psychiatric: Orientation: alert, oriented to person and cooperative Results & Data Results & Data ([facility]) Vital Signs (Past 12 Hours) Vital Signs Temp Pulse Resp BP BP Pulse Ox 03/18/22 07:33 36.6 C 106 H 20 143/81 H 95 03/18/22 03:25 36.7 C 90 22 131/62 93 PG Care Time/CCT Total # of Minutes Spent Total Time Spent with Patient: Total time spent is greater than 50% in coordination of care (as documented) at patient's floor/unit and/or counseling patient: Coding Level of Care Code 34401 Subseq Hosp Care Lvl 2 Diagnoses PCP (pneumocystis jiroveci pneumonia) B59 Cryptococcal pneumonitis B45.0 Fatigue R53.83 Acute respiratory failure with hypoxia J96.01 B12 deficiency E53.8 Diarrhea R19.7 History of pulmonary embolism Z86.711 (HFpEF) heart failure with preserved ejection fraction I50.30 Light chain myeloma C90.00 Thrombocytopenia D69.6 Anemia D64.9 BPH loc w urin obs/LUTS N40.1 GERD (gastroesophageal reflux disease) K21.9 Osteoporosis 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 M81.8; C90.00 Depression F32.9 Calculus of kidney N20.0
[2022-03-18] MEDS: ZIPRASIDONE 20 MG/ML SDV IM PRN (17:45)
[2022-03-18] MEDS: ACETAMINOPHEN 500 MG TAB PO PRN (19:56)
[2022-03-18] MEDS: ATOVAQUONE 750 MG/5 ML UDC PO SCH (20:00)
[2022-03-18] MEDS: HEPARIN 100 UNIT/ML 5ML FLUSH FLUSH PRN (20:06)
[2022-03-19 06:00] LABS: BUN Creatinine Ratio 15.8 (10-20); Calcium 8.6 mg/dl (8.5-10.1); Creatinine Clr Calc Pharmacy 48.8 ml/min; Est GFR (African American) 59.8 ml/min; Est GFR (Non-African American) 51.6 ml/min; Potassium 4.5 mmol/L (3.5-5.1)
[2022-03-19] MEDS: METOPROLOL TARTRATE 25 MG TAB PO SCH ×2 (08:32→20:15)
[2022-03-19] MEDS: ATOVAQUONE 750 MG/5 ML UDC PO SCH ×2 (08:32→20:16)
[2022-03-19] MEDS: allopurinoL 100 MG TAB PO SCH ×2 (08:32→20:16)
[2022-03-19] MEDS: ACYCLOVIR 400 MG TAB PO SCH ×2 (08:32→20:15)
[2022-03-19] MEDS: CITALOPRAM 20 MG TAB PO SCH (08:32)
[2022-03-19] MEDS: ENOXAPARIN 80 MG/0.8 ML SYR SQ SCH ×2 (08:33→20:16)
[2022-03-19] MEDS: FLUCONAZOLE 100 MG TAB PO SCH (08:33)
[2022-03-19] MEDS: DUTASTERIDE 0.5MG PO SCH (08:33)
[2022-03-19] MEDS: DOCUSATE SODIUM/SENNA 50/8.6MG TAB PO SCH (08:33)
[2022-03-19] MEDS: PANTOprazole 40 MG TAB PO SCH (08:33)
[2022-03-19] MEDS: CYANOCOBALAMIN (B-12) 500 MCG TABLET PO SCH (08:33)
[2022-03-19] MEDS: FUROSEMIDE 20 MG TAB PO SCH (08:33)
[2022-03-19] MEDS: FLUTICASONE/VILANTEROL 200/25MCG 14 PUFFS/INHALER INH SCH (08:33)
--- NOTE | 2022-03-19 13:05 | Hospitalist Progress Note ---
Date of Service March 19, 2022 Assessment & Plan (1) PCP (pneumocystis jiroveci pneumonia): Plan: Suspected from bronchoscopy pathology from bronch on 03/10. - Was on Bactrim 21 day course (End date: 04/01/2022), but switched to atovaquone on 03/18 for increased hallucinations and tremors. - Repeat CT chest in 4-6 weeks. - Appreciate pulmonology recs - Improving. Off O2 at this time. - Per Andry ID - Finish full 21-day course of abx with atovaquone (End on 04/01 as above). Then switch to Bactrim 3x/wk indefinitely. At lower dose, hopefully he will have minimal side effects. His reports "counts" getting off previously on Bactrim, so will have to watch carefully. (2) Acute renal failure: Plan: While in Bactrim, Cr has gradually edged up to 1.33 from 0.8 - 1.0. K+ stable. - Holding Bactrim now for confusion/tremors - Hold Lasix tomorrow - Monitor (3) Cryptococcal pneumonitis: Plan: Bronchoscopy in January 2022 showed cryptococcus. Prior LP in January - without cryptococcus (of note titre reported under "other body source" is noted as CSF however this was confirmed with the lab this was his serum sample) - Continue fluconazole 400 mg p.o. once daily - likely for 1 year duration - Holding chemotherapy for the last 2 months (4) Fatigue: Plan: Some concerning history for myasthenia. No definitive improvement with pyridostigmine but given delirium difficult to tell for sure. Given worsening confusion possibly caused by pyridostigmine will hold further doses. - Myasthenia Ab pending - to be followed up as outpatient - CK negative. Aldolase recommended by neurology and currently pending - Follow up with neurology as outpatient for outpatient EMG - Improving today. I think it was likely from Bactrim, but will need to monitor. (5) Acute respiratory failure with hypoxia: Plan: As above - Resolved (6) B12 deficiency: Plan: B12 level was 162 pg/ml. Cyanocobalamin 1000 mcg IM given 03/02 - 03/06 [5 doses]. - Continue PO supplementation. (7) Diarrhea: Plan: Resolved. (8) History of pulmonary embolism: Plan: Previously on Coumadin but has been held while he is on fluconazole and they had been utilizing Lovenox. - Continue home Lovenox 1 mg/kg SQ BID - Lower dose given reduced body weight. - Follows with anticoagulation clinic (9) (HFpEF) heart failure with preserved ejection fraction: Plan: No acute issues, does not appear hypervolemic. - Continue home Lasix 20 Mg p.o. once daily (10) Light chain myeloma: Plan: Follows with oncology at [facility]. Holding all home chemotherapy due to recent infection. - Continue suppressive acyclovir 400 mg p.o. twice daily (11) Thrombocytopenia: Plan: Mild at 117. Likely secondary to acute illness. - Follow CBC -> Resolved. (12) Anemia: Plan: Mild and at baseline. Likely some element of B12 deficiency as well as anemia of chronic disease. - Follow CBC - B12 supplement on discharge. (13) BPH loc w urin obs/LUTS: Plan: No acute issues. - Bladder scan as needed - Continue home dutasteride (14) GERD (gastroesophageal reflux disease): Plan: Mag replaced and repeat wnl - Continue home PPI (15) Osteoporosis 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: (16) Depression: Plan: - Continue home Celexa (17) Calculus of kidney: Plan: With a history of uric acid stones, follows with urology. - Continue home allopurinol Admission and Anticipated Discharge Date Admission Date: March 01, 2022 Subjective Definitely doing better today. Still some mild tremor, but doing well as it is improving. Some mild hallucinations, but seems to recover and understand they are not really there. Some reduced appetite. Reports no fevers/chills, chest pain, shortness of breath, abdominal pain, nausea, or vomiting. Physical Exam Constitutional: WD/WN, vitals as above Eyes: EOM intact bilaterally; no conjunctival abnormality ENMT: external ear and nose normal, oropharynx normal Neck: trachea midline, no thyromegaly normal visual inspection Respiratory: normal respiratory effort, lungs clear to auscultation no respiratory distress Cardiovascular: RRR, no murmur, no edema Gastrointestinal (Abdomen): Inspection/Auscultation: abdomen normal to inspection; abdomen not distended Musculoskeletal: no cyanosis or clubbing, extremities motor strength 5/5 Skin: no rashes, warm and dry Neurologic: moves all extremities and awake Psychiatric: Orientation: alert, oriented to person and cooperative Results & Data Results & Data ([place]) Vital Signs (Past 12 Hours) Vital Signs Temp Pulse Resp BP Pulse Ox 03/19/22 07:02 36.5 C 93 H 22 151/89 H 92 PG Care Time/CCT Total # of Minutes Spent Total Time Spent with Patient: Total time spent is greater than 50% in coordination of care (as documented) at patient's floor/unit and/or counseling patient: Coding Level of Care Code 18906 Subseq Hosp Care Lvl 3 Diagnoses PCP (pneumocystis jiroveci pneumonia) B59 Cryptococcal pneumonitis B45.0 Fatigue R53.83 Acute respiratory failure with hypoxia J96.01 B12 deficiency E53.8 Diarrhea R19.7 History of pulmonary embolism Z86.711 (HFpEF) heart failure with preserved ejection fraction I50.30 Light chain myeloma C90.00 Thrombocytopenia D69.6 Anemia D64.9 BPH loc w urin obs/LUTS N40.1 GERD (gastroesophageal reflux disease) K21.9 Osteoporosis 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 M81.8; C90.00 Depression F32.9 Calculus of kidney N20.0 Acute renal failure N17.9
[2022-03-19] MEDS: ZIPRASIDONE 20 MG/ML SDV IM PRN (17:11)
[2022-03-19] MEDS: ACETAMINOPHEN 500 MG TAB PO PRN (20:17)
[2022-03-20 07:15] LABS: Hematocrit (blood only) 33.4 % (42-52); Hemoglobin 11.6 g/dL (14.0-18.0); Mean Corpuscular Hemoglobin 33.4 pg (25-34); Mean Corpuscular Hgb Conc 34.7 g/dL (32-36); Mean Corpuscular Volume 96.3 fL (80-100); Platelet Count 151 K/uL (130-400); RDW Coefficient of Variation 17.4 % (11.5-14.5); RDW Standard Deviation 61.2 fL (36.4-46.3); Red Blood Count 3.47 M/uL (4.7-6.1); White Blood Count 4.63 K/uL (4.8-10.8)
--- NOTE | 2022-03-20 07:31 | Hospitalist Progress Note ---
Date of Service March 20, 2022 Assessment & Plan (1) Fall: Plan: when attempting to get out of bed today to urinate and fell back unwitnessed and by roommate stated hit back of his head, suspect contributed by ZAMZAM w/ Cr 1.58 (getting lasix daily with rising Cr) RN with patient in chair and patient fell forwards prior to being taken down to CT CT head performed, negative for acute CVA/calvarial fracture 1:1 ordered when family not at bedside, if more stable later today could do q15m checks but suspect hospital delirium and re-institution of bactrim earlier in week worsened cognitive status ?concussion neurochecks any worsening confusion consider repeat CT head given fall on lovenox 500cc NSS and encouraged PO intake given ZAMZAM Continue to monitor, planning for SNF tomorrow if remains stable off the bactrim Also added melatonin for sleep given prior insomnia and patient with increased delirium/4 room changes (2) PCP (pneumocystis jiroveci pneumonia): Plan: Suspected from bronchoscopy pathology from bronch on 03/10. Was on Bactrim 21 day course (End date: 04/01/2022), but switched to atovaquone on 03/18 for increased hallucinations and tremors (previously moved to ICU after placing on Bactrim initially, however was initially felt due to steroids) Repeat CT chest in 4-6 weeks Pulmonology on consult Off supplemental O2 -- sats 93% RA Per [facility] ID - Finish full 21-day course of abx with atovaquone (End on 04/01 as above). Then switch to Bactrim 3x/wk indefinitely. At lower dose, hopefully he will have minimal side effects. His reports "counts" getting off previously on Bactrim, so will have to watch carefully. 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 Prior LP in January - without cryptococcus (of note titre reported under "other body source" is noted as CSF however this was confirmed with the lab this was his serum sample) Continue fluconazole 400 mg p.o. once daily - likely for 1 year duration - Holding chemotherapy for the last 2 months (5) Fatigue: Plan: Some concerning history for myasthenia. No definitive improvement with pyridostigmine but given delirium difficult to tell for sure. Given worsening confusion possibly caused by pyridostigmine will hold further doses. - Myasthenia Ab pending - to be followed up as outpatient - CK negative. Aldolase recommended by neurology and not elevated - Follow up with neurology as outpatient for outpatient EMG - Improving today. I think it was likely from Bactrim/zamzam today, but will need to monitor. (6) Acute respiratory failure with hypoxia: Plan: As above - Resolved (7) B12 deficiency: Plan: B12 level was 162 pg/ml. Cyanocobalamin 1000 mcg IM given 03/02 - 03/06 [5 doses]. - Continue PO supplementation and at discharge (8) Diarrhea: Plan: Resolved. (9) History of pulmonary embolism: Plan: Previously on Coumadin but has been held while he is on fluconazole and they had been utilizing Lovenox. - Continue home Lovenox 1 mg/kg SQ BID - Lower dose given reduced body weight. - Follows with anticoagulation clinic (10) (HFpEF) heart failure with preserved ejection fraction: Plan: No acute issues, does not appear hypervolemic. 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 Holding all home chemotherapy due to recent infection. - Continue suppressive acyclovir 400 mg p.o. twice daily (12) Thrombocytopenia: Plan: Mild at 117. Likely secondary to acute illness. CBC -> Resolved. (13) Anemia: Plan: Mild and at baseline. Likely some element of B12 deficiency as well as anemia of chronic disease. - Follow CBC - B12 supplement on discharge. (14) BPH loc w urin obs/LUTS: Plan: No acute issues. - Bladder scan as needed - Continue home dutasteride (15) GERD (gastroesophageal reflux disease): Plan: Mag replaced and repeat wnl - Continue home PPI (16) Osteoporosis 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: (17) Depression: Plan: - Continue home Celexa (18) Calculus of kidney: Plan: With a history of uric acid stones, follows with urology. - Continue home allopurinol Plan: possible d/c to SNF tomorrow Admission and Anticipated Discharge Date Admission Date: March 01, 2022 Supervising Physician Co-Signing Physician Notes MARCIAL Supervision Note: I did not personally see or examine the patient today, but I verified all sanchez points of MARCIAL Hoffmann's assessment and plan with the following exceptions/additions: None Subjective patient evaluated this morning. was getting agitated for nursing but laying in bed currently but was stating he needed to go to his truck, that he was feeling better and he needs to get out of the hospital and that "doctors don't know what these medicines are doing to you". Does seem slightly altered but answering orientation questions and noted March, in [facility] but acting similar to when he was when placed on Bactrim prior week. Discussed that had been discontinued and that we are using another medication that should be better tolerated. He initially did not want to take. Offered with vanilla ice cream and he was agreeable. Laid bed down and breathing comfortably but was initially tachypneic to RR 24 when attempting to get out of bed. More relaxed and RN to administer atovaquone. states was on Bactrim 1 tablet 3x/week in past and tolerated without issues. Called afternoon regarding fall -- CT negative. No bleeding/increased confusion. Visited/updated /daughter this evening. Patient very thirsty and requesting water. Provided, elevated bed. Family state appears better than on Wednesday, less tremulous, better color, breathing improved but patient irritable and not wanting to be in hospital and insisting "going to mow the grass" and needing to get to his tractor. Not much worse than yesterday,but discussed fall/possible concussion could complicate picture as well and would repeat imaging if any worsening cognitive status. Discussed delirium/fall earlier in the day and hit the back of his head when attempting to get up to pee and then forward out of the chair. 1:1 ordered when family not there, if stable/sleeping consider q15min. They do agree continued inpatient stay/multiple rooms/fall and negative CT do aide in hospital delirium on top of everything else and pending status in am if stable/no worse could send to SNF for rehab and transport arranged. They are in agreement with plan. They do note that it's about 2.5weeks longer than typical hospital stay and he seems very irritable to still be here. Questions/concerns addressed. Review of Systems Review of Systems: All systems reviewed & are unremarkable except as noted in HPI & below Physical Exam Physical Exam: General: attempting to get out of bed to urinate this morning, no acute distress, stated in hospital, year 2021 and month is March HEENT: head normocephalic, eyes with pupils equal and reactive to light, DRY mm, trachea midline Resp: CTAB with faint bilateral crackles, improved air entry compared to prior exams, no wheezing/rales, on room air CV: RRR, no m/r/g, no calf edema/tenderness to palpation : +BS, soft, nontender no munoz MSK/Neuro: moves all extremities, no focal deficit, no tremor noticed this morning but occasional jerking in the evening with family present, follows commands, answering questions appropriately at times but also talking about tractors and needing to mow the grass, no facial droop, speech more garbled at times but much improved with sip of water Skin: warm, dry Results & Data Results & Data ([facility]) Vital Signs (Past 12 Hours) Vital Signs Temp Pulse Resp BP Pulse Ox 03/20/22 00:09 36.7 C 94 H 20 139/79 93 Laboratory Results 03/20/22 03/20/22 03/15/22 Range/Units 06:27 06:27 07:54 WBC 4.63 L (4.8-10.8) K/uL RBC 3.47 L (4.7-6.1) M/uL Hgb 11.6 L (14.0-18.0) g/dL Hct 33.4 L (42-52) % MCV 96.3 (80-100) fL MCH 33.4 (25-34) pg MCHC 34.7 (32-36) g/dL RDW Std Deviation 61.2 H (36.4-46.3) fL RDW Coeff of Eyal 17.4 H (11.5-14.5) % Plt Count 151 (130-400) K/uL MPV 11.0 H (7.4-10.4) fL Sodium 132 L (136-145) mmol/L Potassium 4.5 (3.5-5.1) mmol/L Chloride 102 (98-107) mmol/L Carbon Dioxide 15 L (21-32) mmol/L Anion Gap 15 H (3-11) BUN 29 H (6-23) mg/dl Creatinine 1.58 H (0.6-1.4) mg/dl Est Cr Clr Drug Dosing 41.1 ml/min Est GFR ( Amer) 48.5 ml/min Est GFR (Non-Af Amer) 41.9 ml/min BUN/Creatinine Ratio 18.4 (10-20) Glucose 82 (70-99(Fasting)) mg/dl Calcium 8.6 (8.5-10.1) mg/dl Magnesium 2.0 (1.7-2.4) mg/dl Aldosterone 2 (see note) ng/dL Diagnostic Findings Head CT 03/20/22 11:10 CT OF THE HEAD WITHOUT CONTRAST CLINICAL HISTORY: s/p fall, hit head COMPARISON STUDY: Head CT March 04, 2022. CT DOSE: 1228.53 mGy.cm TECHNIQUE: Helical axial images of the head were obtained without IV contrast. Automated exposure control was utilized for the study. A dose lowering technique was utilized adhering to the principles of ALARA. FINDINGS: This study is mildly compromised by motion artifact. No acute intracranial hemorrhage, midline shift or mass effect is present. The ventricular system is unremarkable. The basal cisterns are patent. No extra- axial collections are present. There are no findings to suggest acute dural sinus thrombosis or acute territorial infarct. There is no acute calvarial fracture. Small air-fluid level within the right maxillary sinus is noted. Fluid is low attenuation. IMPRESSION: 1. No acute intracranial findings. 2. No calvarial fracture. ACT 112: Negative or not required by law. Electronically signed by: Don Snowden M.D. 03/20/2022 11:53 AM PG Care Time/CCT Total # of Minutes Spent Total Time Spent with Patient: Total time spent is greater than 50% in coordination of care (as documented) at patient's floor/unit and/or counseling patient: Coding Level of Care Code 59713 Subseq Hosp Care Lvl 3 Diagnoses PCP (pneumocystis jiroveci pneumonia) B59 Acute renal failure N17.9 Cryptococcal pneumonitis B45.0 Fatigue R53.83 Acute respiratory failure with hypoxia J96.01 B12 deficiency E53.8 Diarrhea R19.7 History of pulmonary embolism Z86.711 (HFpEF) heart failure with preserved ejection fraction I50.30 Light chain myeloma C90.00 Thrombocytopenia D69.6 Anemia D64.9 BPH loc w urin obs/LUTS N40.1 GERD (gastroesophageal reflux disease) K21.9 Osteoporosis 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 M81.8; C90.00 Depression F32.9 Calculus of kidney N20.0 Fall W19.XXXA
[2022-03-20 08:03] LABS: BUN Creatinine Ratio 18.4 (10-20); Calcium 8.6 mg/dl (8.5-10.1); Creatinine Clr Calc Pharmacy 41.1 ml/min; Est GFR (African American) 48.5 ml/min; Est GFR (Non-African American) 41.9 ml/min; Potassium 4.5 mmol/L (3.5-5.1)
[2022-03-20] MEDS: allopurinoL 100 MG TAB PO SCH ×2 (09:14→20:00)
[2022-03-20] MEDS: FLUCONAZOLE 100 MG TAB PO SCH (09:15)
[2022-03-20] MEDS: ATOVAQUONE 750 MG/5 ML UDC PO SCH ×2 (09:15→20:01)
[2022-03-20] MEDS: CITALOPRAM 20 MG TAB PO SCH (09:15)
[2022-03-20] MEDS: PANTOprazole 40 MG TAB PO SCH (09:15)
[2022-03-20] MEDS: DUTASTERIDE 0.5MG PO SCH (09:15)
[2022-03-20] MEDS: METOPROLOL TARTRATE 25 MG TAB PO SCH ×2 (09:15→20:00)
[2022-03-20] MEDS: CYANOCOBALAMIN (B-12) 500 MCG TABLET PO SCH (09:15)
[2022-03-20] MEDS: ACYCLOVIR 400 MG TAB PO SCH ×2 (09:15→20:00)
[2022-03-20] MEDS: DOCUSATE SODIUM/SENNA 50/8.6MG TAB PO SCH (09:20)
[2022-03-20] MEDS: FLUTICASONE/VILANTEROL 200/25MCG 14 PUFFS/INHALER INH SCH (09:20)
[2022-03-20] MEDS: ENOXAPARIN 80 MG/0.8 ML SYR SQ SCH ×2 (09:20→20:03)
--- NOTE | 2022-03-20 11:56 | CT Scan Report ---
CT OF THE HEAD WITHOUT CONTRAST CLINICAL HISTORY: s/p fall, hit head COMPARISON STUDY: Head CT March 04, 2022. CT DOSE: 1228.53 mGy.cm TECHNIQUE: Helical axial images of the head were obtained without IV contrast. Automated exposure con trol was utilized for the study. A dose lowering technique was utilized adhering to the principles o f ALARA. FINDINGS: This study is mildly compromised by motion artifact. No acute intracranial hemorrhage, midl ine shift or mass effect is present. The ventricular system is unremarkable. The basal cisterns are p atent. No extra-axial collections are present. There are no findings to suggest acute dural sinus thr ombosis or acute territorial infarct. There is no acute calvarial fracture. Small air-fluid level wit hin the right maxillary sinus is noted. Fluid is low attenuation. IMPRESSION: 1. No acute intracranial findings. 2. No calvarial fracture. ACT 112: Negative or not required by law. Electronically signed by: Don Snowden M.D. 03/20/2022 11:53 AM
[2022-03-20] MEDS ORDERED: SODIUM CHLORIDE 0.9% 500 ML IV SCH (16:45)
[2022-03-20] MEDS: MELATONIN 3 MG TAB PO PRN (19:59)
[2022-03-21 07:57] LABS: Hematocrit (blood only) 35.6 % (42-52); Hemoglobin 11.8 g/dL (14.0-18.0); Mean Corpuscular Hgb Conc 33.1 g/dL (32-36); Mean Corpuscular Volume 96.5 fL (80-100); RDW Coefficient of Variation 17.9 % (11.5-14.5); RDW Standard Deviation 63.3 fL (36.4-46.3); Red Blood Count 3.69 M/uL (4.7-6.1); White Blood Count 4.18 K/uL (4.8-10.8)
[2022-03-21 07:58] LABS: Mean Platelet Volume 9.9 fL (7.4-10.4); Platelet Count 161 K/uL (130-400)
--- NOTE | 2022-03-21 08:05 | Hospitalist Progress Note ---
Date of Service March 21, 2022 Assessment & Plan (1) PCP (pneumocystis jiroveci pneumonia): Plan: Suspected from bronchoscopy pathology from bronch on 03/10. Was on Bactrim 21 day course (End date: 04/01/2022), but switched to atovaquone on 03/18 for increased hallucinations and tremors (previously moved to ICU after placing on Bactrim initially, however was initially felt due to steroids) Repeat CT chest in 4-6 weeks Pulmonology on consult Off supplemental O2 -- sats 92% RA Per [facility] ID - Finish full 21-day course of abx with atovaquone (End on 04/01 as above). Then switch to Bactrim 3x/wk indefinitely. At lower dose, hopefully he will have minimal side effects. His reports "counts" getting off previously on Bactrim, so will have to watch carefully. Did discuss with and he had been on 3x/wk in the past, but did educate to watch for signs when back on this agent (2) Acute renal failure: Plan: ?medication induced vs poor po intake -- recent Bactrim courses since discontinued for confusion/tremors Bactrim discontinued for confusion/tremors WORSE TODAY, 1.58 --> 2.21 (Had been getting lasix 20mg QAM with poor PO intake 03/15-03/19 during raise in Cr from 0.8 to 1.33 with poor po intake). Continue holding lasix Given 500cc NSS 03/20, placed on NSS @ 80cc/hr and Cr improved to 1.98 and will continue such Bladder scan, st cath if needed to obtain UA to r/o infection given fall --> has not been able to collect sample and will plan to straight cath Monitor BMP (3) Confusion: Plan: ongoing issue throughout hospitalization, medication/infection induced along with insomnia/delirium in patient with baseline memory issues ZAMZAM now as above CT head negative, repeat if worsening given fall 03/20 Continue neurochecks given antipsychotics 03/18, 03/19, since discontinued and would avoid as was doing better earlier in the week melatonin HS prn sleep sleep/wake schedules -- patient did have hx sleeping during day/wake at night. of note, atovaquone causes insomnia which had been issue for patient earlier in stay. MRI of brain to be considered w/ contrast when Cr improved (4) Fall: Plan: occurred 03/20 x 2 when attempting to get out of bed today to urinate and fell back unwitnessed and by roommate stated hit back of his head, suspect contributed by ZAMZAM w/ Cr 1.58 (getting lasix daily with rising Cr) RN with patient in chair and patient fell forwards prior to being taken down to CT CT head performed, negative for acute CVA/calvarial fracture 1:1 ordered when family not at bedside, if more stable later today could do q15m checks but suspect hospital delirium and re-institution of bactrim earlier in week worsened cognitive status UA/cx ordered when able to void -- if not voiding by afternoon will straight cath 500cc NSS provided 03/20, cr worsened tpo 2.21 (1.58 on 03/20 with normal baseline and suspect contributed to weakness, however atovoquon also can contribute) Additional NSS ordered this morning, repeat Cr 1.98 and improvement in sodium and will continue Hold further antipsychotics and continue on melatonin HS prn. D/c antipsychotics (given 03/18, 03/19) Add B1 to am labs but will place on supp tomorrow empirically MRI brain w/w/o once cr improved given chronic underlying issues feel warranted but no need urgently ( reported borderline confusion/memory issues on admit at baseline but I also checked B12 and was also low) 1:1 changed to q15min checks and has been stable any worsening confusion consider repeat CT head given fall on lovenox -- not much change but appears stable compared to day prior despite labs, but is dehydrated -- getting IVF for dehydration PT/OT --SNF when able to arrange transport/patient stable (5) Cryptococcal pneumonitis: Plan: Bronchoscopy in January 2022 showed cryptococcus. Prior LP in January - without cryptococcus (of note titre reported under "other body source" is noted as CSF however this was confirmed with the lab this was his serum sample) Continue fluconazole 400 mg p.o. once daily - likely for 1 year duration Holding chemotherapy for the last 2 months (6) Fatigue: Plan: Some concerning history for myasthenia. No definitive improvement with pyridostigmine but given delirium difficult to tell for sure. Given worsening confusion possibly caused by pyridostigmine will hold further doses. - Myasthenia Ab pending - to be followed up as outpatient - CK negative. Aldolase recommended by neurology and not elevated - Follow up with neurology as outpatient for outpatient EMG - Improving today. I think it was likely from Bactrim/zamzam today, but will need to monitor. (7) Acute respiratory failure with hypoxia: Plan: As above - Resolved on room air (8) B12 deficiency: Plan: B12 level was 162 pg/ml. Cyanocobalamin 1000 mcg IM given 03/02 - 03/06 [5 doses] - Continue PO supplementation and at discharge (9) Diarrhea: Plan: Resolved. (10) History of pulmonary embolism: Plan: Previously on Coumadin but has been held while he is on fluconazole and they had been utilizing Lovenox. - Continue home Lovenox 1 mg/kg SQ BID - Lower dose given reduced body weight. - Follows with anticoagulation clinic (11) (HFpEF) heart failure with preserved ejection fraction: Plan: No acute issues, does not appear hypervolemic. HOLDING LASIX FOR TODAY ABOVE, DRY ON EXAM Monitor (12) Light chain myeloma: Plan: Follows with oncology at [facility] Holding all home chemotherapy due to recent infection - Continue suppressive acyclovir 400 mg p.o. twice daily (13) Thrombocytopenia: Plan: Mild at 117. Likely secondary to acute illness. CBC -> Resolved (14) Anemia: Plan: Mild and at baseline. Likely some element of B12 deficiency as well as anemia of chronic disease. - Follow CBC - B12 supplement on discharge. (15) BPH loc w urin obs/LUTS: Plan: No acute issues. - Bladder scan as needed - Continue home dutasteride (16) GERD (gastroesophageal reflux disease): Plan: Mag replaced and repeat wnl - Continue home PPI (17) Osteoporosis 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: (18) Depression: Plan: - Continue home Celexa (19) Calculus of kidney: Plan: With a history of uric acid stones, follows with urology. - Continue home allopurinol --> will place on hold for kidney function for this evening/monitor Plan: continued inpatient stay Admission and Anticipated Discharge Date Admission Date: March 01, 2022 Supervising Physician Co-Signing Physician Notes MARCIAL Supervision Note: I did not personally see or examine the patient today, but I verified all sanchez points of MARCIAL Hoffmann's assessment and plan with the following exceptions/additions: None Subjective patient evaluated this morning. sitting up in hospital bed, no acute distress. mild headache but denies need for tylenol and waiting for to come visit. knows in the hospital, waiting to go home. states he took all his pills this morning and ate breakfast and could eat more chicken from last night. Slightly dehydrated on exam but improved from day prior. Discussed giving a little more fluids to help kidneys out. Denies any abdominal pain or nausea at this time. Currently breathing on room air. Per RN, no reports of hypoxia overnight and may have been documented incorrectly in system. States patient took all his pills for her this morning, not much fluid intake though but did report patient voided last evening. Ordering IVF and will monitor, no transport available currently due to [place] [facility]/unable to find transport. CM to relay/will update later today --> updated at bedside in afternoon. Did discuss atovaquone can contribute to weakness in up to ~30% of patients, will try to continue to get through hump/work on rehab to prevent further sliding back. Also repeating urine/culture. And discussed MRI in future to r/o any other causes once cr improved. Still with jerking movements but able to state year/thought was February. 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 Melatonin given last night for sleep. Patient wanting to rest after visiting with , as she stated he gets agitated when she keeps talking. Review of Systems Review of Systems: All systems reviewed & are unremarkable except as noted in HPI & below Physical Exam Physical Exam: General: disheveled male laying flat in bed, NAD Heent: head normocephalic, no ecchymosis/hematoma, non-tender to palpation, mm DRY, eyes rolling back in head when sleeping but once awoken no issues, pupils reactive to light and equal in size, trachea midline without deviation Resp: CTAB faint bilateral crackles (improved), improved air entry, no w/r, on room air CV: rrr (rate 84bpm), no m/r/g, no edema, pulses palpable GI: +BS, soft, nontender : no munoz MSK: moves all extremities, no obvious deformities Neuro/psych: awake, alert to person/knows in hospital, thought was february no facial droop, follows commands when asked, +tremor increased with movement +occassional dystonic jerking of legs/feet Skin: dry, cool Results & Data Results & Data ([facility]) Vital Signs (Past 12 Hours) Vital Signs Temp Pulse Resp BP Pulse Ox 03/21/22 03:02 36.3 C L 88 22 126/70 98 Laboratory Results 03/21/22 03/21/22 03/15/22 Range/Units 07:34 07:34 07:54 WBC 4.18 L (4.8-10.8) K/uL RBC 3.69 L (4.7-6.1) M/uL Hgb 11.8 L (14.0-18.0) g/dL Hct 35.6 L (42-52) % MCV 96.5 (80-100) fL MCH 32.0 (25-34) pg MCHC 33.1 (32-36) g/dL RDW Std Deviation 63.3 H (36.4-46.3) fL RDW Coeff of Eyal 17.9 H (11.5-14.5) % Plt Count 161 (130-400) K/uL MPV 9.9 (7.4-10.4) fL Sodium 133 L (136-145) mmol/L Potassium 4.3 (3.5-5.1) mmol/L Chloride 105 (98-107) mmol/L Carbon Dioxide 16 L (21-32) mmol/L Anion Gap 12 H (3-11) BUN 42 H (6-23) mg/dl Creatinine 2.21 H D (0.6-1.4) mg/dl Est Cr Clr Drug Dosing 29.4 ml/min Est GFR ( Amer) 32.3 ml/min Est GFR (Non-Af Amer) 27.9 ml/min BUN/Creatinine Ratio 19.0 (10-20) Glucose 97 (70-99(Fasting)) mg/dl Calcium 8.6 (8.5-10.1) mg/dl Magnesium 2.1 (1.7-2.4) mg/dl Aldosterone 2 (see note) ng/dL Diagnostic Findings Head CT 03/20/22 11:10 CT OF THE HEAD WITHOUT CONTRAST CLINICAL HISTORY: s/p fall, hit head COMPARISON STUDY: Head CT March 04, 2022. CT DOSE: 1228.53 mGy.cm TECHNIQUE: Helical axial images of the head were obtained without IV contrast. Automated exposure control was utilized for the study. A dose lowering technique was utilized adhering to the principles of ALARA. FINDINGS: This study is mildly compromised by motion artifact. No acute intracranial hemorrhage, midline shift or mass effect is present. The ventricular system is unremarkable. The basal cisterns are patent. No extra- axial collections are present. There are no findings to suggest acute dural sinus thrombosis or acute territorial infarct. There is no acute calvarial fracture. Small air-fluid level within the right maxillary sinus is noted. Fluid is low attenuation. IMPRESSION: 1. No acute intracranial findings. 2. No calvarial fracture. ACT 112: Negative or not required by law. Electronically signed by: Don Snowden M.D. 03/20/2022 11:53 AM PG Care Time/CCT Total # of Minutes Spent Total Time Spent with Patient: Total time spent is greater than 50% in coordination of care (as documented) at patient's floor/unit and/or counseling patient: Coding Level of Care Code 18948 Subseq Hosp Care Lvl 3 Diagnoses Fall W19.XXXA PCP (pneumocystis jiroveci pneumonia) B59 Acute renal failure N17.9 Cryptococcal pneumonitis B45.0 Fatigue R53.83 Acute respiratory failure with hypoxia J96.01 B12 deficiency E53.8 Diarrhea R19.7 History of pulmonary embolism Z86.711 (HFpEF) heart failure with preserved ejection fraction I50.30 Light chain myeloma C90.00 Thrombocytopenia D69.6 Anemia D64.9 BPH loc w urin obs/LUTS N40.1 GERD (gastroesophageal reflux disease) K21.9 Osteoporosis 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 M81.8; C90.00 Depression F32.9 Calculus of kidney N20.0 Confusion R41.0
[2022-03-21] MEDS: CITALOPRAM 20 MG TAB PO SCH (08:16)
[2022-03-21] MEDS: ATOVAQUONE 750 MG/5 ML UDC PO SCH ×2 (08:16→21:07)
[2022-03-21] MEDS: DUTASTERIDE 0.5MG PO SCH (08:16)
[2022-03-21] MEDS: FLUCONAZOLE 100 MG TAB PO SCH (08:16)
[2022-03-21] MEDS: FLUTICASONE/VILANTEROL 200/25MCG 14 PUFFS/INHALER INH SCH (08:17)
[2022-03-21] MEDS: ENOXAPARIN 80 MG/0.8 ML SYR SQ SCH ×2 (08:17→21:09)
[2022-03-21] MEDS: ACYCLOVIR 400 MG TAB PO SCH ×2 (08:17→21:08)
[2022-03-21] MEDS: METOPROLOL TARTRATE 25 MG TAB PO SCH ×2 (08:17→21:09)
[2022-03-21] MEDS: PANTOprazole 40 MG TAB PO SCH (08:17)
[2022-03-21] MEDS: CYANOCOBALAMIN (B-12) 500 MCG TABLET PO SCH (08:17)
[2022-03-21] MEDS: allopurinoL 100 MG TAB PO SCH (08:17)
[2022-03-21] MEDS: DOCUSATE SODIUM/SENNA 50/8.6MG TAB PO SCH (08:20)
[2022-03-21 08:36] LABS: Potassium 4.3 mmol/L (3.5-5.1)
[2022-03-21 08:37] LABS: Calcium 8.6 mg/dl (8.5-10.1); Creatinine Clr Calc Pharmacy 29.4 ml/min; Est GFR (African American) 32.3 ml/min; Est GFR (Non-African American) 27.9 ml/min; Magnesium 2.1 mg/dl (1.7-2.4)
[2022-03-21] MEDS ORDERED: SODIUM CHLORIDE 0.9% 500 ML IV SCH (08:45)
[2022-03-21] MEDS: SODIUM CHLORIDE 0.9% 1000ML 1,000 ML IV SCH ×2 (10:03→21:20)
[2022-03-21 13:34] LABS: Albumin Level 3.1 gm/dl (3.4-5.0); Bilirubin,Total 0.3 mg/dl (0.2-1.0); Total Protein 5.9 gm/dl (6.0-8.3)
[2022-03-21 14:56] LABS: BUN Creatinine Ratio 21.7 (10-20); Calcium 8.6 mg/dl (8.5-10.1); Creatinine Clr Calc Pharmacy 32.8 ml/min; Est GFR (African American) 36.9 ml/min; Est GFR (Non-African American) 31.9 ml/min; Potassium 4.4 mmol/L (3.5-5.1)
[2022-03-21 20:05] LABS: Appearance Urine Turbid (Clear); Bacteria Urine Automated Negative (Negative); Bilirubin Urine Negative (Negative); Blood Urine 3+ (Negative); Color Urine Orange; Glucose Urine UA Negative (Negative); Ketones Urine Trace (Negative); Leukocyte Esterase Urine 1+ (Negative); Nitrite Urine Negative (Negative); Protein Urine 1+ (Negative); RBC Urine Automated >30 /hpf (0-4); Specific Gravity Urine 1.022 (1.000-1.030); Urobilinogen Urine Negative (Negative)
[2022-03-22 06:31] LABS: Hematocrit (blood only) 31.8 % (42-52); Hemoglobin 10.8 g/dL (14.0-18.0); Mean Corpuscular Hemoglobin 33.3 pg (25-34); Mean Corpuscular Volume 98.1 fL (80-100); Mean Platelet Volume 10.4 fL (7.4-10.4); Platelet Count 148 K/uL (130-400); RDW Coefficient of Variation 17.7 % (11.5-14.5); RDW Standard Deviation 63.8 fL (36.4-46.3); Red Blood Count 3.24 M/uL (4.7-6.1); White Blood Count 3.81 K/uL (4.8-10.8)
[2022-03-22 06:55] LABS: BUN Creatinine Ratio 22.1 (10-20); Calcium 8.1 mg/dl (8.5-10.1); Creatinine Clr Calc Pharmacy 53.2 ml/min; Est GFR (African American) 66.3 ml/min; Est GFR (Non-African American) 57.2 ml/min; Magnesium 1.7 mg/dl (1.7-2.4); Potassium 4.2 mmol/L (3.5-5.1)
--- NOTE | 2022-03-22 07:17 | Hospitalist Progress Note ---
Date of Service March 22, 2022 Assessment & Plan (1) PCP (pneumocystis jiroveci pneumonia): Plan: Suspected from bronchoscopy pathology from bronch on 03/10. Was on Bactrim 21 day course (End date: 04/01/2022), but switched to atovaquone on 03/18 for increased hallucinations and tremors (previously moved to ICU after placing on Bactrim initially, however was initially felt due to steroids) Repeat CT chest in 4-6 weeks Pulmonology on consult Off supplemental O2 -- sats improved to 93% RA Per [facility] - Finish full 21-day course of abx with atovaquone (End on 04/01 as above). Then switch to Bactrim 3x/wk indefinitely. At lower dose, hopefully he will have minimal side effects. His reports cell counts getting off previously on Bactrim, so will have to watch carefully. Did discuss with and he had been on 3x/wk in the past, but did educate to watch for signs when back on this agent Of note, patient with "weakness" after levaquin, atovaquone w/ adverse rxn up to 31% of patients however bactrim not option given prior events and will attempt to get through current course and continue therapy at rehab as planned, possibly tomorrow --Cr improved but will wait until tomorrow to see if again improvement in mentation/cognitive status with less jerking/movements (much improved today) but plan for MRI w/ contrast of brain (2) Acute renal failure: Plan: ?medication induced vs poor po intake -- recent Bactrim courses since discontinued for confusion/tremors Bactrim discontinued for confusion/tremors Cr steadily rising over the past week 1.58 up to max 2.21 on 03/21 but had been getting scheduled lasix 20mg QAM daily from 03/15-03/19 along with antipsychotics (EKG checked QTc improved as was prolonged earlier in stay) IVF ordered -- total 1.5L ordered, Cr improved to 1.22 on AM labs and IV continued for total 2.5L and improvement in PO intake 03/22 St cath for urine as was having difficulty with voiding --> does not appear to be infected BMP in AM (3) Confusion: Plan: ongoing issue throughout hospitalization, medication/infection induced along with insomnia/delirium in patient with baseline memory issues and repeatedly put back on Bactrim during inpatient stay which caused acute encephalopathy requiring transfer to ICU and placed on precedex prior to initial planned bronch earlier in the stay Had been clearing up once bactrim discontinued (initially felt prednisone induced) but placed back on bactrim as well as given antipsychotics x 2 03/18, 03/19 similar to earlier in stay and had worsening confusion/poor PO intake and worsening renal failure on diuretic therapy ZAMZAM improved CT head negative, repeat if worsening given fall 03/20 Continue neurochecks given antipsychotics 03/18, 03/19, since discontinued and would avoid as was doing better earlier in the week melatonin HS prn sleep sleep/wake schedules -- patient did have hx sleeping during day/wake at night. of note, atovaquone causes insomnia which had been issue for patient earlier in stay as well as weakness MRI of brain to be considered w/ contrast when Cr improved/stable and less movements --may need ativan for MRI and would like to be a little more improved prior to ordering (4) Fall: Plan: occurred 03/20 x 2when attempting to get out of bed today to urinate and fell back unwitnessed and by roommate stated hit back of his head suspect contributed by ZAMZAM w/ Cr 1.58 (getting lasix daily with rising Cr), weakness from atovaquone, antipsychotics, and delirium trying to get up to bed to use bathroom RN with patient in chair and patient fell forwards prior to being taken down to CT CT head performed, negative for acute CVA/calvarial fracture 1:1 ordered when family not at bedside, status improving Q15min checked UA without evidence for infection, no bacteria. Ammonia without elevation (checked for tremulous state) Hold further antipsychotics (given 03/18, 03/19), melatonin HS for sleep ordered B1 pending but placed on empiric supplementation MRI brain to be considered, ?tomorrow Continue B12 replacement, thiamine empirically PT/OT, Rehab planned for d/c at SNF (5) Metabolic acidosis: Plan: persists, at 16 thought to be from ZAMZAM but that is now resolved could be side effect of atovaquone? 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 Prior LP in January - without cryptococcus (of note titer reported under "other body source" is noted as CSF however this was confirmed with the lab this was his serum sample) Continue fluconazole 400 mg p.o. once daily - likely for 1 year duration Holding chemotherapy for the last 2 months (7) Fatigue: Plan: Some concerning history for myasthenia. No definitive improvement with pyridostigmine but given delirium difficult to tell for sure. Given worsening confusion possibly caused by pyridostigmine will hold further doses. - Myasthenia Ab pending - to be followed up as outpatient - CK negative. Aldolase recommended by neurology and not elevated - Follow up with neurology as outpatient for outpatient EMG Continued fatigue, but weakness from meds/fall/antipsychotics/bactrim/zamzam, and atovaquone, as well as prolonged inpatient stay with deconditioning SNF/continued therapy planned and hopefully improvement once completed therapy (8) Acute respiratory failure with hypoxia: Plan: As above - Resolved, continues to remain stable on RA, SpO2 93% (9) B12 deficiency: Plan: B12 level was 162 pg/ml. Cyanocobalamin 1000 mcg IM given 03/02 - 03/06 [5 doses] - Continue PO supplementation and at discharge (10) Diarrhea: Plan: Resolved. (11) History of pulmonary embolism: Plan: Previously on Coumadin but has been held while he is on fluconazole and they had been utilizing Lovenox. - Continue home Lovenox 1 mg/kg SQ BID - Lower dose given reduced body weight. - Follows with anticoagulation clinic (12) (HFpEF) heart failure with preserved ejection fraction: Plan: No acute issues, does not appear hypervolemic. 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 Holding all home chemotherapy due to recent infection - Continue suppressive acyclovir 400 mg p.o. twice daily (14) Thrombocytopenia: Plan: Mild at 117. Likely secondary to acute illness. Repeats stable, 148 (15) Anemia: Plan: Mild and at baseline. Likely some element of B12 deficiency as well as anemia of chronic disease. - Follow CBC, stable considering got 1.5l ivf and continues on additional IVF - B12 supplement on discharge. (16) BPH loc w urin obs/LUTS: Plan: No acute issues. - Bladder scan as needed -- 212ml yesterday, incontinence x 1. st cath without infection and UOP acceptable (can be incontinent at times, continue condom cath as able to keep dry) - Continue home dutasteride (17) GERD (gastroesophageal reflux disease): Plan: Mag replaced and repeat wnl - Continue PPI (18) Osteoporosis 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: Plan: Vitamin D checked given osteoporosis LOW at 9.7, in setting of CKD Ergocalciferol 50,000 weekly x 1-2months, then maintenance dosing (19) Depression: Plan: - Continue home Celexa (20) Calculus of kidney: Plan: With a history of uric acid stones, follows with urology. - Continue home allopurinol 03/23 (held last evening for elevated Cr given cleara nce plan to resume in AM) (21) Vitamin D deficiency: Plan: checked in patient with osteoporosis vit d checked as none in system of note does get zolendronic acid Q3M per outpatient medications placed on ergocalciferol weekly, check vit D in AM to assess given above Plan: continued inpatient stay, hopefully if continued improvements can d/c to SNF tomorrow consider MRI brain prior to d/c, ?later today but given weekend unlikely to be obtained and not emergent Updated daughter Danette on plan this morning, unable to be reached at that time but Danette said she would update Haroon and I asked if she had any questions to please let nursing know. Admission and Anticipated Discharge Date Admission Date: March 01, 2022 Supervising Physician Co-Signing Physician Notes PA Supervision Note: I did not personally see or examine the patient today, but I verified all sanchez points of MARCIAL Hoffmann's assessment and plan with the following exceptions/additions: None Subjective evaluated this morning laying in bed, no acute distress, and looking out the window year 2021, but month is April per patient, he stated we needed to be quiet as this is a hospital to the nursing staff not much of an appetite days past and discussed kidney numbers improving but per RN did have decent appetite and ate most of breakfast unfortunately michael was up a lot of the evening on and off and did not get great sleep. wanting to rest currently and covered back up with blanket. no fevers, chest pain, shortness of breath, nausea, or vomiting. does have some slight tenderness to the LLQ in area of recent Lovenox injections. Updated daughter Danette on patient as 's phone kept ringing. She is to contact/update her mother and have her call if any questions/concerns. Review of Systems Review of Systems: All systems reviewed & are unremarkable except as noted in HPI & below Physical Exam Physical Exam: General: wd male laying in hospital bed, NAD, less tremulous, less jerking movements Heent: head normocephalic, no ecchymosis/hematoma, non-tender to palpation, mm DRY, pupils reactive to light and equal in size, trachea midline without deviation Chest: port to L chest, covered Resp: CTAB, no w/c/r, 93% on RA CV: rrr (rate 94bpm), no m/r/g, no edema, pulses palpable GI: +BS, soft, nontender except in LLQ with ecchymosis from Lovenox injection : no munoz MSK: moves all extremities, no obvious deformities Neuro/psych: awake, alert to person/knows in hospital, thought was may, no facial droop, follows commands when asked, +tremor (decreased), less dystonic jerking of legs/feet strength 3-4/5 b/l LE, generalized weakness Skin: dry, cool Results & Data Results & Data ([facility]) Vital Signs (Past 12 Hours) Vital Signs Temp Pulse Resp BP Pulse Ox 03/21/22 23:06 36.6 C 65 20 168/71 H 97 03/21/22 21:13 102 H 122/93 93 Laboratory Results 03/22/22 03/22/22 03/22/22 Range/Units 05:42 05:42 05:42 WBC (4.8-10.8) K/uL RBC (4.7-6.1) M/uL Hgb (14.0-18.0) g/dL Hct (42-52) % MCV (80-100) fL MCH (25-34) pg MCHC (32-36) g/dL RDW Std Deviation (36.4-46.3) fL RDW Coeff of Eyal (11.5-14.5) % Plt Count (130-400) K/uL MPV (7.4-10.4) fL Sodium 135 L (136-145) mmol/L Potassium 4.2 (3.5-5.1) mmol/L Chloride 109 H (98-107) mmol/L Carbon Dioxide 16 L (21-32) mmol/L Anion Gap 10 (3-11) BUN 27 H (6-23) mg/dl Creatinine 1.22 D (0.6-1.4) mg/dl Est Cr Clr Drug Dosing 53.2 ml/min Est GFR ( Amer) 66.3 ml/min Est GFR (Non-Af Amer) 57.2 ml/min BUN/Creatinine Ratio 22.1 H (10-20) Glucose 90 (70-99(Fasting)) mg/dl Calcium 8.1 L (8.5-10.1) mg/dl Magnesium 1.7 (1.7-2.4) mg/dl Total Bilirubin (0.2-1.0) mg/dl Direct Bilirubin (0-0.2) mg/dl AST (13-39) U/L ALT (7-52) U/L Alkaline Phosphatase (34-104) U/L Ammonia (18-72) umol/L Total Protein (6.0-8.3) gm/dl Albumin (3.4-5.0) gm/dl Vitamin B1 Pending 25-OH Vitamin D Total 9.7 L (30-100) ng/ml Urine Color Urine Appearance (Clear) Urine pH (4.5-7.5) Ur Specific [place] (1.000-1.030) Urine Protein (Negative) Urine Glucose (UA) (Negative) Urine Ketones (Negative) Urine Blood (Negative) Urine Nitrite (Negative) Urine Bilirubin (Negative) Urine Urobilinogen (Negative) Ur Leukocyte Esterase (Negative) Urine WBC (Auto) (0-5) /hpf Urine RBC (Auto) (0-4) /hpf U Hyaline Cast (Auto) (0-5) /lpf U Epithel Cells (Auto) (0-5) /lpf Urine Bacteria (Auto) (Negative) 03/22/22 03/21/22 03/21/22 Range/Units 05:42 19:45 14:13 WBC 3.81 L (4.8-10.8) K/uL RBC 3.24 L (4.7-6.1) M/uL Hgb 10.8 L (14.0-18.0) g/dL Hct 31.8 L (42-52) % MCV 98.1 (80-100) fL MCH 33.3 (25-34) pg MCHC 34.0 (32-36) g/dL RDW Std Deviation 63.8 H (36.4-46.3) fL RDW Coeff of Eyal 17.7 H (11.5-14.5) % Plt Count 148 (130-400) K/uL MPV 10.4 (7.4-10.4) fL Sodium 133 L (136-145) mmol/L Potassium 4.4 (3.5-5.1) mmol/L Chloride 106 (98-107) mmol/L Carbon Dioxide 16 L (21-32) mmol/L Anion Gap 11 (3-11) BUN 43 H (6-23) mg/dl Creatinine 1.98 H (0.6-1.4) mg/dl Est Cr Clr Drug Dosing 32.8 ml/min Est GFR ( Amer) 36.9 ml/min Est GFR (Non-Af Amer) 31.9 ml/min BUN/Creatinine Ratio 21.7 H (10-20) Glucose 105 H (70-99(Fasting)) mg/dl Calcium 8.6 (8.5-10.1) mg/dl Magnesium (1.7-2.4) mg/dl Total Bilirubin (0.2-1.0) mg/dl Direct Bilirubin (0-0.2) mg/dl AST (13-39) U/L ALT (7-52) U/L Alkaline Phosphatase (34-104) U/L Ammonia (18-72) umol/L Total Protein (6.0-8.3) gm/dl Albumin (3.4-5.0) gm/dl Vitamin B1 25-OH Vitamin D Total (30-100) ng/ml Urine Color [place] Urine Appearance Turbid A (Clear) Urine pH 5.0 (4.5-7.5) Ur Specific [place] 1.022 (1.000-1.030) Urine Protein 1+ H (Negative) Urine Glucose (UA) Negative (Negative) Urine Ketones Trace H (Negative) Urine Blood 3+ H (Negative) Urine Nitrite Negative (Negative) Urine Bilirubin Negative (Negative) Urine Urobilinogen Negative (Negative) Ur Leukocyte Esterase 1+ H (Negative) Urine WBC (Auto) 1-5 (0-5) /hpf Urine RBC (Auto) >30 H (0-4) /hpf U Hyaline Cast (Auto) 5-10 H (0-5) /lpf U Epithel Cells (Auto) 5-10 H (0-5) /lpf Urine Bacteria (Auto) Negative (Negative) 03/21/22 03/21/22 Range/Units 12:54 12:54 WBC (4.8-10.8) K/uL RBC (4.7-6.1) M/uL Hgb (14.0-18.0) g/dL Hct (42-52) % MCV (80-100) fL MCH (25-34) pg MCHC (32-36) g/dL RDW Std Deviation (36.4-46.3) fL RDW Coeff of Eyal (11.5-14.5) % Plt Count (130-400) K/uL MPV (7.4-10.4) fL Sodium (136-145) mmol/L Potassium (3.5-5.1) mmol/L Chloride (98-107) mmol/L Carbon Dioxide (21-32) mmol/L Anion Gap (3-11) BUN (6-23) mg/dl Creatinine (0.6-1.4) mg/dl Est Cr Clr Drug Dosing ml/min Est GFR ( Amer) ml/min Est GFR (Non-Af Amer) ml/min BUN/Creatinine Ratio (10-20) Glucose (70-99(Fasting)) mg/dl Calcium (8.5-10.1) mg/dl Magnesium (1.7-2.4) mg/dl Total Bilirubin 0.3 (0.2-1.0) mg/dl Direct Bilirubin 0.0 (0-0.2) mg/dl AST 20 (13-39) U/L ALT 23 (7-52) U/L Alkaline Phosphatase 80 (34-104) U/L Ammonia 36.0 (18-72) umol/L Total Protein 5.9 L (6.0-8.3) gm/dl Albumin 3.1 L (3.4-5.0) gm/dl Vitamin B1 25-OH Vitamin D Total (30-100) ng/ml Urine Color Urine Appearance (Clear) Urine pH (4.5-7.5) Ur Specific [place] (1.000-1.030) Urine Protein (Negative) Urine Glucose (UA) (Negative) Urine Ketones (Negative) Urine Blood (Negative) Urine Nitrite (Negative) Urine Bilirubin (Negative) Urine Urobilinogen (Negative) Ur Leukocyte Esterase (Negative) Urine WBC (Auto) (0-5) /hpf Urine RBC (Auto) (0-4) /hpf U Hyaline Cast (Auto) (0-5) /lpf U Epithel Cells (Auto) (0-5) /lpf Urine Bacteria (Auto) (Negative) PG Care Time/CCT Total # of Minutes Spent Total Time Spent with Patient: Total time spent is greater than 50% in coordination of care (as documented) at patient's floor/unit and/or counseling patient: Coding Level of Care Code 84190 Subseq Hosp Care Lvl 3 Diagnoses PCP (pneumocystis jiroveci pneumonia) B59 Acute renal failure N17.9 Confusion R41.0 Fall W19.XXXA Cryptococcal pneumonitis B45.0 Fatigue R53.83 Acute respiratory failure with hypoxia J96.01 B12 deficiency E53.8 Diarrhea R19.7 History of pulmonary embolism Z86.711 (HFpEF) heart failure with preserved ejection fraction I50.30 Light chain myeloma C90.00 Thrombocytopenia D69.6 Anemia D64.9 BPH loc w urin obs/LUTS N40.1 GERD (gastroesophageal reflux disease) K21.9 Osteoporosis 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 M81.8; C90.00 Depression F32.9 Calculus of kidney N20.0 Vitamin D deficiency E55.9 Metabolic acidosis E87.2
[2022-03-22] MEDS ORDERED: MAGNESIUM SULFATE / D5W 1 GM/100 ML BAG IV ONE (08:00)
[2022-03-22] MEDS: ACYCLOVIR 400 MG TAB PO SCH ×2 (08:33→20:22)
[2022-03-22] MEDS: DUTASTERIDE 0.5MG PO SCH (08:33)
[2022-03-22] MEDS: FLUCONAZOLE 100 MG TAB PO SCH (08:33)
[2022-03-22] MEDS: CITALOPRAM 20 MG TAB PO SCH (08:33)
[2022-03-22] MEDS: CYANOCOBALAMIN (B-12) 500 MCG TABLET PO SCH (08:33)
[2022-03-22] MEDS: ATOVAQUONE 750 MG/5 ML UDC PO SCH ×2 (08:33→20:17)
[2022-03-22] MEDS: ENOXAPARIN 80 MG/0.8 ML SYR SQ SCH ×2 (08:33→20:28)
[2022-03-22] MEDS: METOPROLOL TARTRATE 25 MG TAB PO SCH ×2 (08:34→20:29)
[2022-03-22] MEDS: DOCUSATE SODIUM/SENNA 50/8.6MG TAB PO SCH (08:34)
[2022-03-22] MEDS: ERGOCALCIFEROL 50,000 UNITS 1250 MCG CAP PO SCH (09:19)
[2022-03-22] MEDS: SODIUM CHLORIDE 0.9% 1000ML 1,000 ML IV SCH (09:52)
[2022-03-22] MEDS: FLUTICASONE/VILANTEROL 200/25MCG 14 PUFFS/INHALER INH SCH (10:08)
--- NOTE | 2022-03-22 10:11 | Electrocardiogram Report ---
Test Reason : Blood Pressure : / mmHG Vent. Rate : 088 BPM Atrial Rate : 098 BPM P-R Int : 144 ms QRS Dur : 090 ms QT Int : 354 ms P-R-T Axes : 054 -42 025 degrees QTc Int : 428 ms Poor data quality, interpretation may be adversely affected Normal sinus rhythm with PAC's Left axis deviation Moderate voltage criteria for LVH, may be normal variant Nonspecific ST abnormality Abnormal ECG When compared with ECG of 15-MAR-2022 09:59, QT has shortened Confirmed by Prabhakar Pan [id number] on 03/22/2022 10:11:15 AM Referred By: REFERRED SELF Confirmed By:Prabhakar Pan
[2022-03-22] MEDS: MELATONIN 3 MG TAB PO PRN (20:22)
[2022-03-23 08:57] LABS: Hematocrit (blood only) 32.5 % (42-52); Hemoglobin 10.8 g/dL (14.0-18.0); Mean Corpuscular Hemoglobin 32.7 pg (25-34); Mean Corpuscular Hgb Conc 33.2 g/dL (32-36); Mean Corpuscular Volume 98.5 fL (80-100); Platelet Count 134 K/uL (130-400); RDW Coefficient of Variation 17.8 % (11.5-14.5); RDW Standard Deviation 64.8 fL (36.4-46.3); White Blood Count 3.29 K/uL (4.8-10.8)
--- NOTE | 2022-03-23 08:59 | Neurology Progress Note ---
Date of Service March 23, 2022 Assessment & Plan (1) Acute encephalopathy: (2) Muscle weakness (generalized): (3) Fatigue: (4) Cryptococcal pneumonitis: (5) Acute respiratory failure with hypoxia: (6) B12 deficiency: (7) Vitamin D deficiency: (8) Light chain myeloma: Plan: complicated patient neurologically with encephalopathy /confusion of waxing and waning nature over the course of his hospitalization. Today he is sleepy and confused although arousable and following commands. He does not have any focal neurologic findings on exam. There are no meningeal signs (Neck is supple) He had a general weakness on presentation but did not have any weakness pattern when I 1st saw him on March 14 consistent with a myopathy. Today, he is quite strong and symmetrical. although myasthenia gravis cannot be excluded, his picture is not typical for this. Acetylcholine Receptor antibody titers are pending. He has considerable fatigue. There is no own respiratory failure with hypoxia with cryptococcal pneumonitis and Pneumocystis. He has known B12 deficiency, and recently was found to have a markedly decreased vitamin-D ( less than 10). Vitamin-D deficiency of this nature can give considerable weakness and fatigue with cramps, achiness, and bone pain. Can also produce depression. Patient has had confusion and hallucinations to Bactrim previously on this hospitalization. Antipsychotics did not help and added to his encephalopathy also. His confusion is multifactorial including his medical problems and medications. He may have an underlying dementia as well. The patient was having jerking movements earlier this hospitalization of waxing and waning nature. These are likely myoclonic jerks and secondary to metabolic issues and medications. I do not believe he has a primary seizure disorder. There were no abnormal involuntary movements this morning. The patient fell and hit his head several days ago. Certainly, a concussion could add to his mental status changes otherwise CT scan of the head was unremarkable. Recommendations: 1. Consider MRI of the brain if able to obtain. 2. Awaiting acetylcholine receptor antibody titers. 3. Continue B12 replacement 4. continue vitamin D supplementation 04993 units vitamin D3 daily for 7 days, followed by weekly for 2-3 months. 5. Continue physical and occupational therapy if able. He will likely need placement. 6. contact me if he worsens ( or if the jerking increases. We could consider EEG testing as well. Overall, I spent a total of 60 minutes with this case including review of records, review of CT films, direct evaluation patient at bedside, and discussion of the case with the patient and RN at bedside, and Dr. Shepard, including differential diagnosis and treatment options Admission and Anticipated Discharge Date Admission Date: March 01, 2022 Subjective The patient cannot articulate symptoms currently, but he moans as if he might be in some pain or discomfort. Blood pressure is 117/64 he is afebrile 36. O2 saturation is 2% and pulses in the 80s. Laboratory studies yesterday reveal anemia as before. Sodium is approved 130 his creatinine is reasonable. Liver profile was recently normal. Vitamin-D level is markedly low at 9 7. Some jerking movements of the limbs reported last week but there have been no such movements overnight or this morning. CK was 19 and aldolase was 4.6 earlier this hospitalization. B12 was low at 162 on March 02. The patient fell twice on March 20 when trying to get out of bed to urinate hitting his head. A CT scan of the head was unremarkable. Results & Data ([facility]) Vital Signs (Past 12 Hours) Vital Signs Temp Pulse Resp BP BP Pulse Ox 03/23/22 07:50 36.5 C 81 20 117/64 92 03/22/22 23:01 36.7 C 88 22 147/79 H 92 Exam (Neuro) Physical Exam: He is sleepy but arousable with voice. With shout he will open his eyes and make eye contact with me briefly and he will turn his head closes eyes going back to sleep again after couple of seconds. He moans and I can make out a few words at times as he tries to speak. He understood his name, picking it out from a series of names. He is lying still without abnormal involuntary movements or myoclonic jerks. Extraocular eye muscles are intact and he has no facial droop. Can follow one- step commands in all 4 limbs. Motor strength is 5/5 diffusely both proximally and distally in the upper extremities bilaterally with normal tone. Legs have normal tone and strength is 5/5 proximally bilaterally and is difficult to be certain of because of cooperation distally in the legs. Toes are downgoing to plantar stimulation bilaterally. Reflexes are 1/for the biceps, triceps, brachioradialis and quadriceps tendons bilaterally. Achilles tendon reflexes absent PG Care Time/CCT Total # of Minutes Spent Total Time Spent with Patient: Total time spent is greater than 50% in coordination of care (as documented) at patient's floor/unit and/or counseling patient: Coding Level of Care Code 80301 Subseq Hosp Care Lvl 3 Diagnoses Light chain myeloma C90.00 Cryptococcal pneumonitis B45.0 Acute respiratory failure with hypoxia J96.01 B12 deficiency E53.8 Acute encephalopathy G93.40 Muscle weakness (generalized) M62.81 Fatigue R53.83 Vitamin D deficiency E55.9 Time Spent (min) 60 Comment add modifiers as able
--- NOTE | 2022-03-23 09:08 | Nephrology Consultation ---
Date of Consultation March 23, 2022 Assessment & Plan (1) Metabolic acidosis: * NAG metabolic acidosis. Likely related to recent ZAMZAM and newly diagnosed COVID. UpH < 5.5 inconsistent w/ RTA. Serum potassium is within normal limits. No glucosuria * Will provide NaHCO3 650 mg po BID * Monitor PRP (2) Acute renal failure: * Resolved following IV hydration * Baseline Cr 0.8 - 1.2 (3) COVID-19: * COVID + 03/22/22 (4) Multiple myeloma: * s/p autologous stem cell transplant 12/18 * On chronic immunosuppressive therapy History of Present Illness Reason for Consultation: Metabolic acidosis Attending Physician: Johnna Shepard MD History of Present Illness I was asked to evaluate Mr. Rodriguez by the [facility] Hospitalist Service for persistent metabolic acidosis. Mr. Rodriguez is 76 years of age. He was not interviewed or examined today due to respiratory isolation for newly diagnosed COVID-19 pneumonia. Information for the consultation was obtained from the EMR and is summarized as follows: Mr. Rodriguez has no prior h/o CKD or metabolic acidosis. His baseline Cr has been 0.8 - 1.2. He was admitted to [facility] 03/01/22 with hypoxic respiratory failure related to a RUL cryptococcal pneumonia. His hospital course was complicated by dehydration and ZAMZAM. Cr peaked at 2.2 03/21/22 but subsequently recovered following IV hydration. Since his episode of ZAMZAM Mr. Rodriguez has had a low grade NAG metabolic acidosis w/ serum bicarbonate 16 - 20 mmol/L. His urine pH has been < 5.5 inconsistent w/ RTA. Serum potassium has been normal and there has been no documented glucosuria. Mr. Rodriguez is undergoing Neurology evaluation for encephalopathy. Yesterday evening he tested + for COVID PMH: Multiple myeloma s/p autologous stem cell transplant 12/18 on chronic immunosuppressive therapy, atrial fibrillation, h/o PE - lovenox, HFpEF, uric acid kidney stones, BPH, GERD, osteoporosis Allergies Allergy/AdvReac Type Severity Reaction Status Date / Time dexamethasone AdvReac Severe Hallucinati Verified 03/01/22 16:21 on prednisone AdvReac Severe hallucinati Verified 03/06/22 08:00 ons meclizine AdvReac Intermediate HALLUCINATI Verified 03/01/22 16:21 ON hydrocodone AdvReac Mild AGITATION Verified 03/01/22 16:21 levofloxacin [[facility] AdvReac Mild muscle Verified 03/01/22 16:21 weakness lisinopril AdvReac Mild Dizziness Verified 03/01/22 16:21 Home Medications Medication Instructions Recorded Confirmed Type acetaminophen 500 mg tablet 1,000 mg PO Q8 PRN 06/28/18 03/01/22 History (Acetaminophen Extra Strength) daratumumab 20 mg/mL intravenous 0 mg IV MONTHLY 06/28/18 03/01/22 History solution polyethylene glycol 3350 17 17 g PO DAILY PRN 06/28/18 03/01/22 History gram/dose oral powder (Miralax) pomalidomide 4 mg capsule 4 mg PO DIRECTED 06/29/18 03/01/22 History acyclovir 400 mg tablet 400 mg PO BID 08/02/18 03/01/22 History pegfilgrastim 6 mg/0.6 mL 6 mg SUBCUT DIRECTED 08/02/18 03/01/22 History (deliverable) wearable subcutaneous injector (Neulasta Onpro) citalopram 10 mg tablet 10 mg PO QAM 04/25/19 03/01/22 History zoledronic acid 4 mg/5 mL 0 mg IV .Q 3 MONTHS 04/25/19 03/01/22 History intravenous solution levalbuterol tartrate 45 1 puffs INH Q6H PRN #15 gm 12/05/19 03/01/22 Rx mcg/actuation aerosol inhaler montelukast 10 mg tablet 10 mg PO MONTHLY PRN tab 07/25/20 03/01/22 History (Singulair) furosemide 20 mg tablet (Lasix) 20 mg PO QAM 02/28/21 03/01/22 History fluticasone furoate 200 1 inh INHALATION QAM 10/15/21 03/01/22 History mcg-vilanterol 25 mcg/dose inhalation powder (Breo Ellipta) dexamethasone 4 mg tablet 8 mg PO WK 11/16/21 03/01/22 History enoxaparin 150 mg/mL subcutaneous See Rx Instructions SUBCUT DAILY 02/20/22 03/01/22 Rx syringe (Lovenox) #30 syr allopurinol 100 mg tablet 100 mg PO BID #180 tab 02/23/22 03/01/22 Rx potassium citrate 10 mEq (1,080 10 meq PO BID 90 Days #180 tab 02/23/22 03/01/22 Rx mg) tablet,extended release (Urocit-K 10) dutasteride 0.5 mg capsule 0.5 mg PO QAM #90 cap 02/26/22 03/01/22 Rx fluconazole 100 mg tablet 400 mg PO DAILY 03/01/22 03/01/22 History Patient History Medical History (HFpEF) heart failure with preserved ejection fraction Anemia BASELINE 8-9 RANGE BPH loc w urin obs/LUTS Calculus of kidney Cancer MULTIPLE MYELOMA (DX'D 2015); stem cell transplant, chemo Cryptococcal pneumonitis Current use of custodial anticoagulation Depression GERD (gastroesophageal reflux disease) Gout History of nephrolithiasis History of pneumothorax 2019 with lung biopsy History of pulmonary embolism TLINGIT & HAIDA (hard of hearing) Irregular heartbeat 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 Port-A-Cath in place Left chest Pulmonary embolism 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); 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 SOB (shortness of breath) on exertion Thrombocytopenia Tremor Surgical History Bone marrow replaced by transplant History of cataract surgery RT History of chest tube placement History of lung biopsy benign Family History Father Cardiac disorder Heart disease Mother Cancer Stroke Other No family history of adverse response to anesthesia Social History Smoking Status: Unknown if ever smoked Second Hand Exposure: No; Hx Alcohol Use: No Hx Substance Use: No Preferred Language: Botswanan Communication Ability: Effective Visual Impairment: No Limitations Gambreler Required: Yes Beliefs That Will Affect Care: None marital status: Current Living Situation: Spouse current occupational status: retired How many Children do You have: 0 Feels Safe at Home: Yes during the past year weight has: remained stable Assistive Devices: Walker Review of Systems Review of Systems: Unobtainable due to respiratory isolation/cognitive status Physical Exam Physical Exam: Withheld due to respiratory isolation Results & Data ([place]) Vital Signs (Past 12 Hours) Vital Signs Temp Pulse Resp BP BP Pulse Ox 03/23/22 07:50 36.5 C 81 20 117/64 92 03/22/22 23:01 36.7 C 88 22 147/79 H 92 Laboratory Results Laboratory Tests 03/22/22 03/23/22 03/23/22 Unknown 08:09 08:09 WBC 3.29 L Hgb 10.8 L Hct 32.5 L Plt Count 134 Sodium 140 Potassium 3.9 Chloride 113 H Carbon Dioxide 19 L BUN 16 Creatinine 0.82 D Calcium 8.3 L Albumin 2.9 L SARS-CoV-2, RNA, NAAT POSITIVE A* Laboratory Tests 03/21/22 19:45 Urine pH 5.0 PG Care Time/CCT Total # of Minutes Spent Total Time Spent with Patient: Total time spent is greater than 50% in coordination of care (as documented) at patient's floor/unit and/or counseling patient: Coding Level of Care Code 72788 Inpt Consult Level 5 Diagnoses Metabolic acidosis E87.2 Acute renal failure N17.9 COVID-19 U07.1 Multiple myeloma C90.00
[2022-03-23 09:18] LABS: Albumin Globulin Ratio 1.2 (0.9-2); Albumin Level 2.9 gm/dl (3.4-5.0); BUN Creatinine Ratio 19.5 (10-20); Bilirubin,Total 0.3 mg/dl (0.2-1.0); Calcium 8.3 mg/dl (8.5-10.1); Creatinine Clr Calc Pharmacy 79.1 ml/min; Est GFR (African American) 99.6 ml/min; Est GFR (Non-African American) 85.9 ml/min; Globulin 2.5 gm/dl (2.5-4.0); Magnesium 1.7 mg/dl (1.7-2.4); Potassium 3.9 mmol/L (3.5-5.1); Total Protein 5.4 gm/dl (6.0-8.3)
[2022-03-23 09:38] LABS: Basophils # (auto) 0.01 K/uL (0-0.2); Basophils % (auto) 0.3 %; Echinocytes 1+; Eosinophils # (auto) 0.02 K/uL (0-0.5); Eosinophils % (auto) 0.6 %; Immature Granulocytes # (auto) 0.14 K/uL (0.00-0.02); Immature Granulocytes % (auto) 4.3 %; Lymphocytes # (auto) 0.53 K/uL (1.2-3.4); Lymphocytes % (auto) 16.1 %; Monocytes # (auto) 0.29 K/uL (0.11-0.59); Monocytes % (auto) 8.8 %; Neutrophils % (auto) 69.9 %; Ovalocytes 1+
[2022-03-23 09:57] LABS: Anti-Striated Muscle NEGATIVE (NEGATIVE); Receptor Binding Ab <0.30 nmol/L
[2022-03-23] MEDS: CITALOPRAM 20 MG TAB PO SCH (10:30)
[2022-03-23] MEDS: ACETAMINOPHEN 500 MG TAB PO PRN (10:31)
[2022-03-23] MEDS: FLUCONAZOLE 100 MG TAB PO SCH (10:31)
[2022-03-23] MEDS: PANTOprazole 40 MG TAB PO SCH (10:31)
[2022-03-23] MEDS: CYANOCOBALAMIN (B-12) 500 MCG TABLET PO SCH (10:31)
[2022-03-23] MEDS: ACYCLOVIR 400 MG TAB PO SCH ×2 (10:32→23:00)
[2022-03-23] MEDS: ATOVAQUONE 750 MG/5 ML UDC PO SCH ×2 (10:32→22:59)
[2022-03-23] MEDS: FLUTICASONE/VILANTEROL 200/25MCG 14 PUFFS/INHALER INH SCH (10:32)
[2022-03-23] MEDS: allopurinoL 100 MG TAB PO SCH ×2 (10:32→22:59)
[2022-03-23] MEDS: METOPROLOL TARTRATE 25 MG TAB PO SCH ×2 (10:32→23:00)
[2022-03-23] MEDS: ENOXAPARIN 80 MG/0.8 ML SYR SQ SCH ×2 (10:32→22:58)
[2022-03-23] MEDS: DUTASTERIDE 0.5MG PO SCH (10:33)
[2022-03-23] MEDS: DOCUSATE SODIUM/SENNA 50/8.6MG TAB PO SCH (11:10)
[2022-03-23 12:33] LABS: Allen Test Pos (Pos); HCO3 ABG 16 mmol/L (19-24); PCO2 ABG 26 mmHg (35-46); PO2 ABG 92 mmHg (80-95)
[2022-03-23] MEDS ORDERED: STAT IV STA (13:10)
[2022-03-23] MEDS ORDERED: SODIUM BICARBONATE 8.4% 150 MEQ in DEXTROSE 5% 1,000 ML IV SCH (13:15)
--- NOTE | 2022-03-23 13:26 | Hospitalist Progress Note ---
Date of Service March 23, 2022 Assessment & Plan (1) PCP (pneumocystis jiroveci pneumonia): Plan: Presented with dyspnea, hypoxia, and diffuse groundglass opacities Previously on chemotherapy for myeloma PCP confirmed on bronchoscopy pathology 03/10. Initially started on high-dose prednisone and high-dose Bactrim, however developed severe encephalopathy requiring ICU stay on Precedex-thought to be steroid psychosis, but Bactrim was restarted later and again developed encephalopathy Nonetheless, steroids were permanently discontinued as well as Bactrim. Atovaquone was started Now doing well on room air, no dyspnea. -Continue atovaquone started on 03/18-plan to finish 21-day course-end date 04/01-[facility] -ID then recommends to switch to Bactrim 3 times per week indefinitely-hopefully at lower dose he will have minimal side effects -Repeat CT chest in 4-6 weeks -Pulmonology on consult (2) Acute encephalopathy: Plan: ongoing issue throughout hospitalization, medication/infection/metabolic induced along with insomnia/delirium in patient with baseline memory issues With ongoing cryptococcal pneumonia, PCJ pneumonia Began with steroid psychosis and likely Bactrim induced encephalopathy early in the hospitalization Required ICU stay on Precedex drip Mentation improved after discontinuation of bactrim and prednisone, but then had worsening again of mentation with acute kidney injury within the last week He also fell out of his chair and hit his head on 03/20 CT head negative, but could have superimposed concussion Unfortunately, then tested positive for [id number] was performed while preparing for discharge to [facility] facility He has also been lethargic and with some worsening confusion since having COVID- 19 ZAMZAM now resolved and mentation does seem to be improved on 03/23 -Avoid antipsychotics given chronic fluconazole use to avoid prolonged QT -Continue melatonin HS prn sleep -Continue good sleep/wake cycles-of note, atovaquone can cause insomnia MRI of brain to be considered w/ contrast not a creatinine is proved, but not sure that he would be able to remain still for this-could perhaps perform in the next 1 to 2 days -Also discussed with neurology the possibility of repeating LP to rule out cryptococcal [employer] disease-previous LP negative for such-hold off for now as per neurology but could consider if mentation not improving over the next couple of days (3) COVID-19: Plan: Tested for COVID-19 for SNF placement and incidentally noted to be positive He has been a little more confused the last few days and it could be from COVID- 19 Otherwise he has symptoms of lethargy and low appetite, however these have been ongoing for several weeks now Not hypoxic Steroids are absolutely contraindicated given previous severe steroid psychosis Would also not give Remdesivir as unclear how many days into his illness he is His last negative COVID test was upon admission 3 weeks ago (4) Acute renal failure: Plan: ?medication induced vs poor po intake -- recent Bactrim courses since dis continued for confusion/tremors Bactrim discontinued for confusion/tremors Cr steadily ammon over the past week 1.58 up to max 2.21 on 03/21 but had been getting scheduled lasix 20mg QAM daily from 03/15-03/19 Creatinine now back to normal after IV fluids given Continue to hold Lasix -Follow BMP -Follow urine output-no retention (5) Fall: Plan: occurred 03/20 x 2when attempting to get out of bed today to urinate and fell back unwitnessed and by roommate stated hit back of his head suspect contributed by ZAMZAM w/ Cr 1.58 (getting lasix daily with rising Cr), weakness from atovaquone, antipsychotics, and delirium trying to get up to bed to use bathroom RN with patient in chair and patient fell forwards a second time on the same day, hitting his head on the ground CT head performed, negative for acute CVA/calvarial fracture UA without evidence for infection, no bacteria. Ammonia without elevation (checked for tremulous state) No other injuries noted Hold further antipsychotics (given 03/18, 03/19), melatonin HS for sleep ordered B1 pending but placed on empiric supplementation MRI brain to be considered as above Continue B12 replacement, thiamine empirically PT/OT, Rehab planned for d/c at SNF (6) Metabolic acidosis: Plan: None anion gap metabolic acidosis was persisting with serum bicarbonate of 16 for several days thought to be from ZAMZAM Lactate normal Urinalysis with pH 5.0 which is inconsistent with RTA as per nephrology could be side effect of atovaquone? Now improved up to 19 Appreciate nephrology consultation-start sodium bicarbonate but because he was lethargic not taking medications today-have ordered 1 L of sodium bicarbonate drip follow BMP (7) Cryptococcal pneumonitis: Plan: Bronchoscopy in January 2022 showed cryptococcus. Prior LP in January - without cryptococcus (of note titer reported under "other body source" is noted as CSF however this was confirmed with the lab this was his serum sample) Continue fluconazole 400 mg p.o. once daily - likely for 1 year duration Holding chemotherapy for the last 2-3 months Following with pulmonology (8) Fatigue: Plan: A previous hospitalist had concern for myasthenia at 1 point during this hospitalization Neurology was consulted and felt that it was not likely but said to consider a trial of pyridostigmine-this made no difference His muscles seem strong throughout - Myasthenia Ab pending - to be followed up as outpatient - CK negative. Aldolase recommended by neurology and not elevated - Follow up with neurology as outpatient for outpatient EMG Continued fatigue, but weakness from meds/fall/antipsychotics/bactrim/zamzam, and atovaquone, as well as prolonged inpatient stay with deconditioning and now with COVID-19 infection SNF/continued therapy planned and hopefully improvement once completed therapy -Have discontinued antipsychotics (9) Acute respiratory failure with hypoxia: Plan: Secondary to PCJ pneumonia which is now improved - Resolved, continues to remain stable on RA, SpO2 93% Now with COVID-19 but no recurrence of hypoxia thus far Absolutely would not give steroids at all to this patient given severe psychosis previously on steroids (10) B12 deficiency: Plan: B12 level was 162 pg/ml. Cyanocobalamin 1000 mcg IM given 03/02 - 03/06 [5 doses] - Continue PO supplementation and at discharge (11) History of pulmonary embolism: Plan: Previously on Coumadin but has been held while he is on fluconazole and they had been utilizing Lovenox. - Continue home Lovenox 1 mg/kg SQ BID - Lower dose given reduced body weight. - Follows with anticoagulation clinic (12) (HFpEF) heart failure with preserved ejection fraction: Plan: No acute issues, does not appear hypervolemic. No further Lasix and receiving IV fluids for acute kidney injury and metabolic acidosis (13) Light chain myeloma: Plan: Follows with oncology at [facility] Holding all home chemotherapy due to recent infection - Continue suppressive acyclovir 400 mg p.o. twice daily (14) Thrombocytopenia: Plan: Now resolved Was likely secondary to acute illness upon admission (15) Anemia: Plan: Mild and at baseline. Likely some element of B12 deficiency as well as anemia of chronic disease. - Follow CBC -Continue B12 supplement on discharge. (16) BPH loc w urin obs/LUTS: Plan: No acute issues. Bladder scan as needed UOP acceptable (can be incontinent at times, continue condom cath as able to keep dry) Continue home dutasteride Is not on tamsulosin (17) GERD (gastroesophageal reflux disease): Plan: Continue PPI (18) Osteoporosis 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: Plan: Vitamin D checked given osteoporosis LOW at 9.7, in setting of CKD Ergocalciferol 50,000 weekly x 1-2months, then maintenance dosing (19) Depression: Plan: - Continue home Celexa (20) Calculus of kidney: Plan: With a history of uric acid stones, follows with urology. - Continue allopurinol (21) Vitamin D deficiency: Plan: checked in patient with osteoporosis vit d very low at 9 of note does get zolendronic acid Q3M per outpatient medications -placed on ergocalciferol weekly Plan: DVT prophylaxis-Lovenox Disposition-continued stay on medical/surgical unit, [facility] isolation. His discharge to SNF has been canceled due to testing positive for COVID-19 and some ongoing metabolic issues as above. Fortunately, [facility] can accept him as long as it has been at least 5 days after the diagnosis of COVID. He will likely be able to be discharged there on 03/27 as long as he is medically stable at that time I discussed his care with his on the phone Admission and Anticipated Discharge Date Admission Date: March 01, 2022 Subjective Patient was noted to be extremely lethargic throughout the morning and an ABG was performed which did not show any hypercapnia. He finally woke up around 1 PM. He was appropriately interactive with me but a little bit drowsy. He denied pain or shortness of breath. Reported feeling very cold and stated "I feel terrible all over." He did not want to eat his lunch and reports low appetite. Patient was found to be positive for COVID-19 last night which was performed on a predischarge check. He was moved into a negative pressure isolation room. He apparently was awake all night long. I discussed his case with neurology this morning. He did not take any of his morning medications but later was able to take them in the afternoon. Review of Systems Review of Systems: All systems reviewed & are unremarkable except as noted in HPI & below Physical Exam Constitutional: WD/WN, vitals as above Eyes: PERRL, conjunctivae normal, anicteric sclerae ENMT: external ear and nose normal, oropharynx normal (Except dry mucous membranes) Neck: trachea midline, no thyromegaly Respiratory: normal respiratory effort; no cough Auscultation: lungs clear to auscultation bilaterally Cardiovascular: RRR, no murmur, no edema Chest (Breasts): Chest: normal inspection of chest Gastrointestinal (Abdomen): normal bowel sounds, soft, nontender, no hepatosplenomegaly Musculoskeletal: Extremities: extremities normal to inspection; no cyanosis and no clubbing Skin: no rashes, warm and dry Neurologic: moves all extremities and awake; no focal motor deficits Psychiatric: Orientation: alert, oriented to person, oriented to place and cooperative Lymphatic: no lymphedema Results & Data Results & Data ([facility]) Vital Signs (Past 12 Hours) Vital Signs Temp Pulse Resp BP BP Pulse Ox 03/23/22 11:27 36.6 C 95 H 18 144/86 H 97 03/23/22 07:50 36.5 C 81 20 117/64 92 Laboratory Results 03/23/22 03/23/22 03/23/22 Range/Units 12:10 08:09 08:09 WBC (4.8-10.8) K/uL RBC (4.7-6.1) M/uL Hgb (14.0-18.0) g/dL Hct (42-52) % MCV (80-100) fL MCH (25-34) pg MCHC (32-36) g/dL RDW Std Deviation (36.4-46.3) fL RDW Coeff of Eyal (11.5-14.5) % Plt Count (130-400) K/uL MPV (7.4-10.4) fL Immature Gran % (Auto) % Neut % (Auto) % Lymph % (Auto) % Tyler % (Auto) % Eos % (Auto) % Baso % (Auto) % Neut # (Auto) (1.4-6.5) K/uL Lymph # (Auto) (1.2-3.4) K/uL Tyler # (Auto) (0.11-0.59) K/uL Eos # (Auto) (0-0.5) K/uL Baso # (Auto) (0-0.2) K/uL Immature Gran # (Auto) (0.00-0.02) K/uL Ovalocytes Echinocytes ABG pH 7.40 (7.35-7.45) ABG pCO2 26 L (35-46) mmHg ABG pO2 92 (80-95) mmHg ABG HCO3 16 L (19-24) mmol/L ABG O2 Saturation 99.0 H (90-95) % ABG Base Excess -7.0 (-9-1.8) mEq/L Aiden Test Pos (Pos) Oxygen Given RA Sodium 140 (136-145) mmol/L Potassium 3.9 (3.5-5.1) mmol/L Chloride 113 H (98-107) mmol/L Carbon Dioxide 19 L (21-32) mmol/L Anion Gap 8 (3-11) BUN 16 (6-23) mg/dl Creatinine 0.82 D (0.6-1.4) mg/dl Est Cr Clr Drug Dosing 79.1 ml/min Est GFR ( Amer) 99.6 ml/min Est GFR (Non-Af Amer) 85.9 ml/min BUN/Creatinine Ratio 19.5 (10-20) Glucose 97 (70-99(Fasting)) mg/dl Calcium 8.3 L (8.5-10.1) mg/dl Magnesium 1.7 (1.7-2.4) mg/dl Total Bilirubin 0.3 (0.2-1.0) mg/dl AST 25 (13-39) U/L ALT 26 (7-52) U/L Alkaline Phosphatase 77 (34-104) U/L Total Protein 5.4 L (6.0-8.3) gm/dl Albumin 2.9 L (3.4-5.0) gm/dl Globulin 2.5 (2.5-4.0) gm/dl Albumin/Globulin Ratio 1.2 (0.9-2) PTH Intact 48.2 (12.0-88.0) pg/ml Striated Muscle Ab Ttr Striated Muscle Ab (NEGATIVE) Acetylchol Rcpt Bind Ab nmol/L SARS-CoV-2, RNA, NAAT (NEGATIVE) 03/23/22 03/22/22 03/14/22 Range/Units 08:09 Unknown 05:36 WBC 3.29 L (4.8-10.8) K/uL RBC 3.30 L (4.7-6.1) M/uL Hgb 10.8 L (14.0-18.0) g/dL Hct 32.5 L (42-52) % MCV 98.5 (80-100) fL MCH 32.7 (25-34) pg MCHC 33.2 (32-36) g/dL RDW Std Deviation 64.8 H (36.4-46.3) fL RDW Coeff of Eyal 17.8 H (11.5-14.5) % Plt Count 134 (130-400) K/uL MPV 11.0 H (7.4-10.4) fL Immature Gran % (Auto) 4.3 % Neut % (Auto) 69.9 % Lymph % (Auto) 16.1 % Tyler % (Auto) 8.8 % Eos % (Auto) 0.6 % Baso % (Auto) 0.3 % Neut # (Auto) 2.30 (1.4-6.5) K/uL Lymph # (Auto) 0.53 L (1.2-3.4) K/uL Tyler # (Auto) 0.29 (0.11-0.59) K/uL Eos # (Auto) 0.02 (0-0.5) K/uL Baso # (Auto) 0.01 (0-0.2) K/uL Immature Gran # (Auto) 0.14 H (0.00-0.02) K/uL Ovalocytes 1+ Echinocytes 1+ ABG pH (7.35-7.45) ABG pCO2 (35-46) mmHg ABG pO2 (80-95) mmHg ABG HCO3 (19-24) mmol/L ABG O2 Saturation (90-95) % ABG Base Excess (-9-1.8) mEq/L Aiden Test (Pos) Oxygen Given Sodium (136-145) mmol/L Potassium (3.5-5.1) mmol/L Chloride (98-107) mmol/L Carbon Dioxide (21-32) mmol/L Anion Gap (3-11) BUN (6-23) mg/dl Creatinine (0.6-1.4) mg/dl Est Cr Clr Drug Dosing ml/min Est GFR ( Amer) ml/min Est GFR (Non-Af Amer) ml/min BUN/Creatinine Ratio (10-20) Glucose (70-99(Fasting)) mg/dl Calcium (8.5-10.1) mg/dl Magnesium (1.7-2.4) mg/dl Total Bilirubin (0.2-1.0) mg/dl AST (13-39) U/L ALT (7-52) U/L Alkaline Phosphatase (34-104) U/L Total Protein (6.0-8.3) gm/dl Albumin (3.4-5.0) gm/dl Globulin (2.5-4.0) gm/dl Albumin/Globulin Ratio (0.9-2) PTH Intact (12.0-88.0) pg/ml Striated Muscle Ab Ttr TNP Striated Muscle Ab NEGATIVE (NEGATIVE) Acetylchol Rcpt Bind Ab <0.30 nmol/L SARS-CoV-2, RNA, NAAT POSITIVE A* (NEGATIVE) PG Care Time/CCT Total # of Minutes Spent Total Time Spent with Patient: Total time spent is greater than 50% in coordination of care (as documented) at patient's floor/unit and/or counseling patient: Coding Level of Care Code 98602 Subseq Hosp Care Lvl 3 Diagnoses PCP (pneumocystis jiroveci pneumonia) B59 Acute renal failure N17.9 Fall W19.XXXA Metabolic acidosis E87.2 Cryptococcal pneumonitis B45.0 Fatigue R53.83 Acute respiratory failure with hypoxia J96.01 B12 deficiency E53.8 History of pulmonary embolism Z86.711 (HFpEF) heart failure with preserved ejection fraction I50.30 Light chain myeloma C90.00 Thrombocytopenia D69.6 Anemia D64.9 BPH loc w urin obs/LUTS N40.1 GERD (gastroesophageal reflux disease) K21.9 Osteoporosis 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 M81.8; C90.00 Depression F32.9 Calculus of kidney N20.0 Vitamin D deficiency E55.9 COVID-19 U07.1 Acute encephalopathy G93.40
[2022-03-23] MEDS: SODIUM BICARBONATE 650 MG TAB PO SCH (14:52)
[2022-03-23] MEDS: FAMOTIDINE 20 MG in SYRINGE 3 ML IV SCH ×2 (14:53→22:58)
[2022-03-24] MEDS: HEPARIN 100 UNIT/ML 5ML FLUSH FLUSH PRN (04:38)
[2022-03-24] MEDS: DOCUSATE SODIUM/SENNA 50/8.6MG TAB PO SCH (08:30)
[2022-03-24] MEDS: CITALOPRAM 20 MG TAB PO SCH (08:30)
[2022-03-24] MEDS: allopurinoL 100 MG TAB PO SCH ×2 (08:30→20:56)
[2022-03-24] MEDS: DUTASTERIDE 0.5MG PO SCH (08:31)
[2022-03-24] MEDS: ATOVAQUONE 750 MG/5 ML UDC PO SCH ×2 (08:31→20:55)
[2022-03-24] MEDS: FLUCONAZOLE 100 MG TAB PO SCH (08:31)
[2022-03-24] MEDS: ACYCLOVIR 400 MG TAB PO SCH ×2 (08:31→20:56)
[2022-03-24] MEDS: CYANOCOBALAMIN (B-12) 500 MCG TABLET PO SCH (08:31)
[2022-03-24] MEDS: PANTOprazole 40 MG TAB PO SCH (08:31)
[2022-03-24] MEDS: ENOXAPARIN 80 MG/0.8 ML SYR SQ SCH ×2 (08:31→21:02)
[2022-03-24] MEDS: METOPROLOL TARTRATE 25 MG TAB PO SCH ×2 (08:31→20:56)
[2022-03-24] MEDS: FLUTICASONE/VILANTEROL 200/25MCG 14 PUFFS/INHALER INH SCH (08:32)
--- NOTE | 2022-03-24 08:35 | Nephrology Progress Note ---
Date of Service March 24, 2022 Assessment & Plan (1) Metabolic acidosis: Plan: * NAG metabolic acidosis. Likely related to recent ZAMZAM and newly diagnosed COVID. UpH < 5.5 inconsistent w/ RTA. Serum potassium is within normal limits. No glucosuria * Serum bicarbonate has corrected. Will stop NaHCO3 supplement * Monitor PRP * No further Nephrology evaluation indicated at this time. Will sign off. Please call if further assistance is needed (2) Acute renal failure: Plan: * Resolved following IV hydration * Baseline Cr 0.8 - 1.2 (3) Pneumonia: Plan: * Cultures cryptococcus (4) COVID-19: Plan: * COVID + 03/22/22 (5) Multiple myeloma: Plan: * s/p autologous stem cell transplant 12/18 * On chronic immunosuppressive therapy Admission and Anticipated Discharge Date Admission Date: March 01, 2022 Subjective Mr. Rodriguez remains on respiratory isolation due to COVID-19 infection Review of Systems Review of Systems: Unobtainable due to respiratory isolation/cognitive status Physical Exam Physical Exam: Withheld due to respiratory isolation Results & Data ([facility]) Vital Signs (Past 12 Hours) Vital Signs Temp Pulse Resp BP Pulse Ox 03/24/22 08:06 36.8 C 72 19 101/65 94 03/24/22 04:45 36.4 C L 89 20 129/80 94 Laboratory Results Laboratory Tests 03/24/22 07:40 Sodium 141 Potassium 3.3 L Chloride 108 H Carbon Dioxide 26 BUN 11 Creatinine 0.81 Glucose 100 H Calcium 7.9 L Magnesium 1.4 L Albumin 2.9 L PG Care Time/CCT Total # of Minutes Spent Total Time Spent with Patient: Total time spent is greater than 50% in coordination of care (as documented) at patient's floor/unit and/or counseling patient: Coding Level of Care Code 20129 Subseq Hosp Care Lvl 3 Diagnoses Metabolic acidosis E87.2 Acute renal failure N17.9 COVID-19 U07.1 Multiple myeloma C90.00 Pneumonia J18.9
--- NOTE | 2022-03-24 08:37 | Neurology Progress Note ---
Date of Service March 24, 2022 Assessment & Plan (1) Acute encephalopathy: (2) Muscle weakness (generalized): (3) Fatigue: (4) Cryptococcal pneumonitis: (5) Acute respiratory failure with hypoxia: (6) B12 deficiency: (7) Vitamin D deficiency: (8) Light chain myeloma: Plan: Complicated patient neurologically with encephalopathy /confusion of waxing and waning nature over the course of his hospitalization. Although yesterday, he was sleepy/ confused and barely following commands, today, he is alert and oriented following commands. He does not have any focal neurologic findings on exam. There are no meningeal signs (Neck is supple) He had a general weakness on presentation but did not have any weakness pattern when I 1st saw him on March 14 consistent with a myopathy. Today, he is quite strong and symmetrical. Although myasthenia gravis was considered, his clinical picture is not typical for this. Acetylcholine Binding Receptor antibody titers is normal He has considerable fatigue. There is known respiratory failure with hypoxia wi th cryptococcal pneumonitis and Pneumocystis. He has known B12 deficiency, and recently was found to have a markedly decreased vitamin-D ( less than 10). Vitamin-D deficiency of this nature can give considerable weakness and fatigue with cramps, achiness, and bone pain. Can also produce depression. Patient has had confusion and hallucinations to Bactrim previously on this hospitalization. Antipsychotics did not help and added to his encephalopathy also. His confusion is multifactorial including his medical problems and medications. He likely has an underlying dementia as well. The patient was having jerking movements earlier this hospitalization of waxing and waning nature. These are likely myoclonic jerks and secondary to metabolic issues and medications. I do not believe he has a primary seizure disorder. There were no abnormal involuntary movements over the last 2 days. The patient fell and hit his head several days ago. Certainly, a concussion could add to his mental status changes otherwise CT scan of the head was unremarkable. Recommendations: 1. Consider MRI of the brain if able to obtain. 2. Could consider lumbar puncture, if worse mental status again. For now there is no need, as his mental status is clearer, he is afebrile, and has no meningeal signs. 3. Continue B12 replacement 4. continue vitamin D supplementation 24343 units vitamin D3 daily for 7 days, followed by weekly for 2-3 months. 5. Continue physical and occupational therapy if able. He will likely need placement. 6. contact me if he worsens ( or if the jerking increases). We could consider EEG testing as well. Overall, I spent a total of 35 minutes with this case including review of records, direct evaluation patient at bedside, and discussion of the case with the patient and RN at bedside, and Dr. Shepard, including differential diagnosis and treatment options Admission and Anticipated Discharge Date Admission Date: March 01, 2022 Subjective Patient himself has no complaints pain or headache. He is not dizzy or have double vision. He does not feel weak. Has a little shortness of breath but is breathing better. Nursing reports no new issues overnight. CBC and Chem profile from this morning, are still pending. blood pressure is 101/65, and he is afebrile Results & Data ([facility]) Vital Signs (Past 12 Hours) Vital Signs Temp Pulse Resp BP Pulse Ox 03/24/22 08:06 36.8 C 72 19 101/65 94 03/24/22 04:45 36.4 C L 89 20 129/80 94 Exam (Neuro) Physical Exam: he is awake and alert. Speech is without aphasia or dysarthria. Mood is normal and he is pleasant and cooperative. He follows one- step commands very well. Strength is 5/5 in all major muscle groups in the arms and legs both proximally and distally. There are no abnormal involuntary movements. Neck is supple in all directions without discomfort. PG Care Time/CCT Total # of Minutes Spent Total Time Spent with Patient: Total time spent is greater than 50% in coordination of care (as documented) at patient's floor/unit and/or counseling patient: Coding Level of Care Code 53458 Subseq Hosp Care Lvl 3 Diagnoses Acute encephalopathy G93.40 Muscle weakness (generalized) M62.81 Fatigue R53.83 Cryptococcal pneumonitis B45.0 Acute respiratory failure with hypoxia J96.01 B12 deficiency E53.8 Vitamin D deficiency E55.9 Light chain myeloma C90.00 Time Spent (min) 35
[2022-03-24 08:40] LABS: Mean Corpuscular Hemoglobin 31.5 pg (25-34); Mean Corpuscular Hgb Conc 32.4 g/dL (32-36); Mean Corpuscular Volume 97.4 fL (80-100); Mean Platelet Volume 9.9 fL (7.4-10.4); Platelet Count 137 K/uL (130-400); RDW Standard Deviation 64.1 fL (36.4-46.3); Red Blood Count 3.49 M/uL (4.7-6.1); White Blood Count 3.24 K/uL (4.8-10.8)
[2022-03-24 09:01] LABS: Eosinophils # (auto) 0.05 K/uL (0-0.5); Eosinophils % (auto) 1.5 %; Hypochromasia Present; Immature Granulocytes % (auto) 6.2 %; Lymphocytes # (auto) 0.63 K/uL (1.2-3.4); Lymphocytes % (auto) 19.4 %; Monocytes # (auto) 0.37 K/uL (0.11-0.59); Monocytes % (auto) 11.4 %; Neutrophils # (auto) 1.99 K/uL (1.4-6.5); Neutrophils % (auto) 61.5 %; Polychromasia 1+
[2022-03-24 09:02] LABS: Albumin Level 2.9 gm/dl (3.4-5.0); BUN Creatinine Ratio 13.6 (10-20); Bilirubin,Total 0.3 mg/dl (0.2-1.0); C Reactive Protein 0.99 mg/dl (0-0.5); Calcium 7.9 mg/dl (8.5-10.1); Creatinine Clr Calc Pharmacy 80.1 ml/min; Est GFR (African American) 100.1 ml/min; Est GFR (Non-African American) 86.3 ml/min; Magnesium 1.4 mg/dl (1.7-2.4); Potassium 3.3 mmol/L (3.5-5.1); Total Protein 5.4 gm/dl (6.0-8.3)
[2022-03-24] MEDS: FAMOTIDINE 20 MG in SYRINGE 3 ML IV SCH (09:39)
[2022-03-24] MEDS: SODIUM BICARBONATE 650 MG TAB PO SCH (09:39)
[2022-03-24] MEDS: POTASSIUM CHLORIDE CRTAB 20 MEQ TABCR PO SCH ×3 (11:18→21:20)
[2022-03-24] MEDS: MAGNESIUM SULFATE / D5W 1 GM/100 ML BAG IV SCH ×2 (11:18→12:59)
[2022-03-24] MEDS ORDERED: SODIUM CHLORIDE 0.9% 1000ML 1,000 ML IV SCH (16:30)
--- NOTE | 2022-03-24 17:18 | Hospitalist Progress Note ---
Date of Service March 24, 2022 Assessment & Plan (1) PCP (pneumocystis jiroveci pneumonia): Plan: Confirmed on bronchoscopy pathology 03/10/22. Thought to be the cause of his presentation at admission. Initial Rx with high-dose prednisone and high-dose Bactrim but developed severe encephalopathy. Bactrim/steroids stopped; mentation improved; Bactrim later restarted and again had altered mental status. Bactrim/steroids NOT resumed. Atovaquone was started 03/18/22 after ID consultation. End date 04/01/22. ID then advises Bactrim 3 times per week indefinitely thereafter. Per pulmonary - repeat chest CT 4-6 weeks. Appreciate pulmonary & ID consults. (2) Acute encephalopathy: Plan: Metabolic & Toxic. Metabolic - infection (pneumocystis, now COVID-19). Toxic - steroids, bactrim, etc. Can't rule out concussion from fall with head injury 03/20/22. CT head negative 03/20/22. Schedule melatonin at HS. Agree with MRI brain w/ and w/o contrast - r/o subacute CVA. Cont thiamine supplementation. [place] - consider lyme testing. (3) COVID-19: Plan: Tested + 03/22/22. Lethargy/fatigue, ongoing confusion, poor PO intake all could be 2nd to COVID- 19. He tested NEGATIVE at time of this admission thus I do believe he indeed has active infection. Exact day of illness is uncertain. No indication for Remdesivir or steroids. Cont airborne isolation. (4) Acute renal failure: Plan: Peak Cr 2.21 on 03/21/22. Now 0.8. Likely prerenal. resolved. (5) Fall: Plan: Occurred 03/20/22 x 2. One fall with head injury. CT head negative for acute findings on 03/20/22. Cont PT/OT. (6) Metabolic acidosis: Plan: Non-anion gap metabolic acidosis - resolved, s/p IV & PO sodium bicarbonate. Nephrology had been assisting. They plan to stop the sodium bicarbonate today. BMP am. 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 LP in January 2022 negative for cryptococcus. Continue fluconazole 400 mg p.o. once daily x 12 months. (8) Fatigue: Plan: Likely multifactorial - ZAMZAM, pneumocystis pneumonia, COVID-19 infection, etc. Recent TSH wnl. Thiamine supplementation in place. Recent ammonia wnl. CT head negative. MRI brain pending. (9) Acute respiratory failure with hypoxia: Plan: 2nd PCJ pneumonia. Improved/resolved. Continue atovaquone. (10) B12 deficiency: Plan: B12 level was 162 pg/ml. Cyanocobalamin 1000 mcg IM x 5 doses, now on PO B12 1000mcg daily. B1 level pending - place on empiric thiamine. (11) History of pulmonary embolism: Plan: Continue Lovenox 1 mg/kg SQ BID (12) (HFpEF) heart failure with preserved ejection fraction: Plan: Appears volume contracted today -- mucous membranes VERY dry; urine VERY co ncentrated; etc. NS x 1 liter tonight. Reassess in am. (13) Light chain myeloma: Plan: Follows with oncology at [facility]. Continue prophylactic acyclovir 400 mg p.o. twice daily. (14) Thrombocytopenia: Plan: Resolved (15) Anemia: Plan: H/H low but acceptable Trend (16) BPH loc w urin obs/LUTS: Plan: Continue home dutasteride (17) GERD (gastroesophageal reflux disease): Plan: Continue PPI (18) Osteoporosis 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: (19) Depression: Plan: Continue home Celexa (20) Calculus of kidney: Plan: With a history of uric acid stones, follows with urology. Continue allopurinol. (21) Vitamin D deficiency: Plan: 25-OH vit D level = 9. ergocalciferol 50,000 units weekly. (22) Hypomagnesemia: Plan: replace IV mag sulfate. repeat mag level AM. (23) Hypokalemia: Plan: replete PO. repeat BMP am. Plan: [facility] [place] [facility] can [facility] him as long as it has been at least 5 days after the diagnosis of COVID. However, mental status is still not back to baseline. Updated pt's extensively 03/24/22 by phone. Admission and Anticipated Discharge Date Admission Date: March 01, 2022 Subjective per staff mental status continues to wax/wane at times he plays with his [employer] eating fair/good; liquid intake is very poor during my bedside assessment he was confused - couldn't tell me where he was, why he was here or the month (August); knew the year, couldn't tell me the season (again said August) he c/o headache denied chest pain denied dyspnea endorses fatigue Review of Systems Review of Systems: gen - no fevers cv - no cp, no orthopnea pulm - no cough GI - no abd pain, no nausea/emesis Physical Exam Physical Exam: gen - fatigued/tired-appearing, chronically ill-appearing mouth - MM very dry, no obvious thrush neck - no JVD heart - RRR, s1 s2 lungs - mild dry rales bases R>L; no increased work of breathing; no wheezing abd - soft NT ND BS+ ext - right calf/leg is larger than left leg; pulses 2+ b/l; no edema psych - oriented to person only neuro - occasional myoclonic jerk Results & Data Results & Data ([facility]) Vital Signs (Past 12 Hours) Vital Signs Temp Pulse Resp BP BP Pulse Ox 03/24/22 16:27 36.6 C 88 19 133/82 92 03/24/22 11:34 36.7 C 86 19 116/66 93 03/24/22 08:06 36.8 C 72 19 101/65 94 Laboratory Results Laboratory Results - last 24 hr 03/24/22 03/24/22 03/24/22 07:40 07:40 07:40 WBC 3.24 L RBC 3.49 L Hgb 11.0 L Hct 34.0 L MCV 97.4 MCH 31.5 MCHC 32.4 RDW Std Deviation 64.1 H RDW Coeff of Eyal 18.0 H Plt Count 137 MPV 9.9 Immature Gran % (Auto) 6.2 Neut % (Auto) 61.5 Lymph % (Auto) 19.4 [place] % (Auto) 11.4 Eos % (Auto) 1.5 Baso % (Auto) 0.0 Neut # (Auto) 1.99 Lymph # (Auto) 0.63 L [place] # (Auto) 0.37 Eos # (Auto) 0.05 Baso # (Auto) 0.00 Immature Gran # (Auto) 0.20 H Polychromasia 1+ Hypochromasia Present ESR 48 H Sodium 141 Potassium 3.3 L Chloride 108 H Carbon Dioxide 26 Anion Gap 7 BUN 11 Creatinine 0.81 Est Cr Clr Drug Dosing 80.1 Est GFR ( Amer) 100.1 Est GFR (Non-Af Amer) 86.3 BUN/Creatinine Ratio 13.6 Glucose 100 H Calcium 7.9 L Magnesium 1.4 L Total Bilirubin 0.3 Direct Bilirubin 0.0 AST 24 ALT 28 Alkaline Phosphatase 75 C-Reactive Protein 0.99 H Total Protein 5.4 L Albumin 2.9 L PG Care Time/CCT Total # of Minutes Spent Total Time Spent with Patient: Total time spent is greater than 50% in coordination of care (as documented) at patient's floor/unit and/or counseling patient: Coding Level of Care Code 94507 Subseq Hosp Care Lvl 3 Diagnoses PCP (pneumocystis jiroveci pneumonia) B59 Acute encephalopathy G93.40 COVID-19 U07.1 Acute renal failure N17.9 Fall W19.XXXA Metabolic acidosis E87.2 Cryptococcal pneumonitis B45.0 Fatigue R53.83 Acute respiratory failure with hypoxia J96.01 B12 deficiency E53.8 History of pulmonary embolism Z86.711 (HFpEF) heart failure with preserved ejection fraction I50.30 Light chain myeloma C90.00 Thrombocytopenia D69.6 Anemia D64.9 BPH loc w urin obs/LUTS N40.1 GERD (gastroesophageal reflux disease) K21.9 Osteoporosis 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 M81.8; C90.00 Depression F32.9 Calculus of kidney N20.0 Vitamin D deficiency E55.9 Hypomagnesemia E83.42 Hypokalemia E87.6
[2022-03-24] MEDS: FAMOTIDINE 20 MG TAB PO SCH (21:21)
[2022-03-24] MEDS: MELATONIN 3 MG TAB PO SCH (21:21)
[2022-03-24] MEDS: THIAMINE HCL 100 MG TAB PO SCH (21:21)
--- NOTE | 2022-03-25 07:02 | Magnetic Resonance Report ---
MR brain wo con HISTORY: 76 years-old Male h/o cryptococcal pneumonia, COVID+, altered MS acutely altered mental sta tus COMPARISON: Head CT 03/20/2022 TECHNIQUE: Multiplanar multisequence MRI of the brain was obtained without the use of IV contrast. FINDINGS: Motion degraded exam. Susceptibility artifact, likely secondary to oral hardware limits the study, no tably the diffusion-weighted sequences. There is no restricted diffusion to suggest acute or subacute infarct. Partially empty sella. Degenerative changes of the imaged cervical spine. The midline struc tures otherwise appear unremarkable. There is no acute intracranial hemorrhage, midline shift, abnormal extra-axial collection, hydrocepha karen or intracranial mass. Involutional changes. Moderate T2/FLAIR hyperintense foci throughout the wh ite matter are suboptimally evaluated secondary to motion degraded FLAIR sequence. The cerebral venou s sinuses and major arterial flow voids appear patent. Trace mastoid effusions. Small right maxillary sinus air-fluid level. Prior bilateral lens replacement. The skull and soft tissues are unremarkable . IMPRESSION: 1. Motion degraded exam. No acute intracranial abnormality is identified, specifically there is no ac douglas or subacute infarct. 2. Involutional changes with moderate chronic microvascular ischemic disease. 3. Acute maxillary sinusitis. ACT 112: Negative or not required by law. The above report was generated using voice recognition software. It may contain grammatical, syntax o r spelling errors. Electronically signed by: Salty Barros M.D. 03/25/2022 7:00 AM
[2022-03-25] MEDS: ATOVAQUONE 750 MG/5 ML UDC PO SCH ×2 (08:15→22:11)
[2022-03-25] MEDS: THIAMINE HCL 100 MG TAB PO SCH ×2 (08:15→22:11)
[2022-03-25] MEDS: CITALOPRAM 20 MG TAB PO SCH (08:15)
[2022-03-25] MEDS: FAMOTIDINE 20 MG TAB PO SCH ×2 (08:15→22:12)
[2022-03-25] MEDS: DOCUSATE SODIUM/SENNA 50/8.6MG TAB PO SCH (08:16)
[2022-03-25] MEDS: FLUCONAZOLE 100 MG TAB PO SCH (08:16)
[2022-03-25] MEDS: CYANOCOBALAMIN (B-12) 500 MCG TABLET PO SCH (08:16)
[2022-03-25] MEDS: PANTOprazole 40 MG TAB PO SCH (08:16)
[2022-03-25] MEDS: METOPROLOL TARTRATE 25 MG TAB PO SCH ×2 (08:16→22:13)
[2022-03-25] MEDS: ACYCLOVIR 400 MG TAB PO SCH ×2 (08:17→22:10)
[2022-03-25] MEDS: allopurinoL 100 MG TAB PO SCH ×2 (08:17→22:12)
[2022-03-25] MEDS: FLUTICASONE/VILANTEROL 200/25MCG 14 PUFFS/INHALER INH SCH (08:20)
[2022-03-25] MEDS: ENOXAPARIN 80 MG/0.8 ML SYR SQ SCH ×2 (08:21→22:09)
[2022-03-25] MEDS: DUTASTERIDE 0.5MG PO SCH (08:21)
[2022-03-25 08:27] LABS: Hemoglobin 11.3 g/dL (14.0-18.0); Mean Corpuscular Hemoglobin 32.8 pg (25-34); Mean Corpuscular Hgb Conc 33.2 g/dL (32-36); Mean Corpuscular Volume 98.8 fL (80-100); Mean Platelet Volume 10.2 fL (7.4-10.4); Platelet Count 130 K/uL (130-400); RDW Coefficient of Variation 18.1 % (11.5-14.5); RDW Standard Deviation 64.9 fL (36.4-46.3); Red Blood Count 3.44 M/uL (4.7-6.1); White Blood Count 3.99 K/uL (4.8-10.8)
[2022-03-25] MEDS: CEFDINIR 300 MG CAP PO SCH ×2 (08:48→22:14)
[2022-03-25 08:53] LABS: BUN Creatinine Ratio 11.7 (10-20); Calcium 7.9 mg/dl (8.5-10.1); Creatinine Clr Calc Pharmacy 84.3 ml/min; Est GFR (African American) 102.2 ml/min; Est GFR (Non-African American) 88.1 ml/min; Magnesium 1.5 mg/dl (1.7-2.4); Potassium 3.7 mmol/L (3.5-5.1)
[2022-03-25] MEDS ORDERED: FOLIC ACID 1 MG in SYRINGE 9.8 ML IV ONE (12:15)
--- NOTE | 2022-03-25 12:17 | Hospitalist Progress Note ---
Date of Service March 25, 2022 Assessment & Plan (1) PCP (pneumocystis jiroveci pneumonia): Plan: Stable, clinically improved, no hypoxia, no symptoms. Confirmed on bronchoscopy pathology 03/10/22. Thought to be the cause of his presentation at admission. Initial Rx with high-dose prednisone and high-dose Bactrim but developed severe encephalopathy. Bactrim/steroids stopped; mentation improved; Bactrim later restarted and again had altered mental status. Bactrim/steroids NOT resumed. Atovaquone was started 03/18/22 after ID consultation. End date 04/01/22. ID then advises Bactrim 3 times per week indefinitely thereafter. Per pulmonary - repeat chest CT 4-6 weeks. Appreciate pulmonary & ID consults. (2) Acute encephalopathy: Plan: IMPROVING. MRI brain overnight - no subacute or chronic stroke, no tumor. Mild maxillary sinusitis only. Metabolic & Toxic. Metabolic - infection (pneumocystis, now COVID-19). Toxic - steroids, bactrim, etc. Can't rule out concussion from fall with head injury 03/20/22. CT head negative 03/20/22. Cont scheduled melatonin HS. Cont thiamine supplementation. Still awaiting B1 level. (3) COVID-19: Plan: Tested + 03/22/22. Clinically improving. He tested NEGATIVE at time of this admission thus I do believe he indeed has active infection. Exact day of illness is uncertain. No indication for Remdesivir or steroids. Cont airborne isolation. (4) Acute renal failure: Plan: Peak Cr 2.21 on 03/21/22. Resolved. Was likely prerenal. (5) Fall: Plan: Occurred 03/20/22 x 2. One fall with head injury. CT head negative for acute findings on 03/20/22. Cont PT/OT. (6) Metabolic acidosis: Plan: Resolved. Non-anion gap metabolic acidosis - resolved, s/p IV & PO sodium bicarbonate. Nephrology had been assisting. Off supplemental bicarbonate. BMP am. 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 LP in January 2022 negative for cryptococcus. Continue fluconazole 400 mg p.o. once daily x 12 months. (8) Fatigue: Plan: Likely multifactorial - ZAMZAM, pneumocystis pneumonia, COVID-19 infection, etc. Scantly improved. Recent TSH wnl. Thiamine supplementation in place. Recent ammonia wnl. CT head negative. MRI brain negative for acute/subacute CVA. (9) Acute respiratory failure with hypoxia: Plan: 2nd PCJ pneumonia. Resolved. Continue atovaquone. Continue supportive care for COVID. (10) B12 deficiency: Plan: B12 level was 162 pg/ml. Cyanocobalamin 1000 mcg IM x 5 doses, now on PO B12 1000mcg daily. B1 level pending - continue empiric thiamine. (11) History of pulmonary embolism: Plan: Continue Lovenox 1 mg/kg SQ BID (12) (HFpEF) heart failure with preserved ejection fraction: Plan: Compensated. (13) Light chain myeloma: Plan: Follows with oncology at [facility]. Continue prophylactic acyclovir 400 mg p.o. twice daily. (14) Thrombocytopenia: Plan: Resolved (15) Anemia: Plan: H/H stable/acceptable (16) BPH loc w urin obs/LUTS: Plan: Continue home dutasteride (17) GERD (gastroesophageal reflux disease): Plan: Continue PPI (18) Osteoporosis 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: (19) Depression: Plan: Continue home Celexa (20) Calculus of kidney: Plan: With a history of uric acid stones, follows with urology. Continue allopurinol. (21) Vitamin D deficiency: Plan: 25-OH vit D level = 9. ergocalciferol 50,000 units weekly. (22) Hypomagnesemia: Plan: replace IV mag sulfate. repeat mag level AM. (23) Hypokalemia: Plan: repleted/resolved (24) Acute maxillary sinusitis: Plan: as seen on MRI brain. likely 2nd COVID-19 infection, but can't exclude bacterial superinfection. start omnicef 300mg BID x 7 days. (25) Folate deficiency: Plan: start folic acid 1mg IV daily, first dose now likely contributing to some degree to pancytopenia folate deficiency likely from poor nutrition over the last several months in the face of recurrent infection Plan: [facility] as long as it has been at least 5 days after the diagnosis of COVID. However, mental status is still not back to baseline - but improving. Updated pt's extensively 03/24/22 and 03/25/22 by phone. Admission and Anticipated Discharge Date Admission Date: March 01, 2022 Subjective patient feeling fatigued and still poor appetite but much more awake/alert today knew he was in [facility] thought it was May said he was sick with "infection" when he came to the hospital denies cough or dyspnea staff report he had a good night; slept well Review of Systems Review of Systems: gen - fatigue, poor appetite; no fevers or chills cv - no cp, no orthopnea pulm - no cough or dyspnea GI - no nausea or emesis; last BM? Physical Exam Physical Exam: gen - more awake /alert today; looks better overall mouth - MM more moist today neck - no JVD heart - RRR, s1 s2 lungs - mild dry rales bases R>L; no increased work of breathing; no wheezing abd - soft NT ND BS+ ext - right calf/leg is larger than left leg - no change; pulses 2+ b/l; no edema psych - oriented to person, place, and partially time neuro - no myoclonic jerks today during the visit Results & Data Results & Data ([facility]) Vital Signs (Past 12 Hours) Vital Signs Temp Pulse Resp BP Pulse Ox 03/25/22 07:07 36.9 C 84 20 121/53 L 95 Laboratory Results Laboratory Results - last 24 hr 03/25/22 03/25/22 03/25/22 08:01 08:01 08:01 WBC 3.99 L RBC 3.44 L Hgb 11.3 L Hct 34.0 L MCV 98.8 MCH 32.8 MCHC 33.2 RDW Std Deviation 64.9 H RDW Coeff of Eyal 18.1 H Plt Count 130 MPV 10.2 Sodium 140 Potassium 3.7 Chloride 110 H Carbon Dioxide 24 Anion Gap 6 BUN 9 Creatinine 0.77 Est Cr Clr Drug Dosing 84.3 Est GFR ( Amer) 102.2 Est GFR (Non-Af Amer) 88.1 BUN/Creatinine Ratio 11.7 Glucose 99 Calcium 7.9 L Magnesium 1.5 L Folate 5.03 L PG Care Time/CCT Total # of Minutes Spent Total Time Spent with Patient: Total time spent is greater than 50% in coordination of care (as documented) at patient's floor/unit and/or counseling patient: Coding Level of Care Code 87075 Subseq Hosp Care Lvl 2 Diagnoses PCP (pneumocystis jiroveci pneumonia) B59 Acute encephalopathy G93.40 COVID-19 U07.1 Acute renal failure N17.9 Fall W19.XXXA Metabolic acidosis E87.2 Cryptococcal pneumonitis B45.0 Fatigue R53.83 Acute respiratory failure with hypoxia J96.01 B12 deficiency E53.8 History of pulmonary embolism Z86.711 (HFpEF) heart failure with preserved ejection fraction I50.30 Light chain myeloma C90.00 Thrombocytopenia D69.6 Anemia D64.9 BPH loc w urin obs/LUTS N40.1 GERD (gastroesophageal reflux disease) K21.9 Osteoporosis 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 M81.8; C90.00 Depression F32.9 Calculus of kidney N20.0 Vitamin D deficiency E55.9 Hypomagnesemia E83.42 Hypokalemia E87.6 Acute maxillary sinusitis J01.00 Folate deficiency E53.8
[2022-03-25] MEDS: MAGNESIUM SULFATE / D5W 1 GM/100 ML BAG IV SCH ×2 (12:48→14:48)
[2022-03-25] MEDS: MELATONIN 3 MG TAB PO SCH (22:11)
[2022-03-26] MEDS: PANTOprazole 40 MG TAB PO SCH (08:12)
[2022-03-26] MEDS: FAMOTIDINE 20 MG TAB PO SCH ×2 (08:13→20:22)
[2022-03-26] MEDS: CITALOPRAM 20 MG TAB PO SCH (08:13)
[2022-03-26] MEDS: ACYCLOVIR 400 MG TAB PO SCH ×2 (08:13→20:23)
[2022-03-26] MEDS: THIAMINE HCL 100 MG TAB PO SCH ×2 (08:13→20:24)
[2022-03-26] MEDS: FLUCONAZOLE 100 MG TAB PO SCH (08:13)
[2022-03-26] MEDS: CYANOCOBALAMIN (B-12) 500 MCG TABLET PO SCH (08:13)
[2022-03-26] MEDS: METOPROLOL TARTRATE 25 MG TAB PO SCH ×2 (08:13→20:22)
[2022-03-26] MEDS: CEFDINIR 300 MG CAP PO SCH ×2 (08:13→20:22)
[2022-03-26] MEDS: allopurinoL 100 MG TAB PO SCH ×2 (08:13→20:23)
[2022-03-26] MEDS: DOCUSATE SODIUM/SENNA 50/8.6MG TAB PO SCH (08:13)
[2022-03-26] MEDS: FLUTICASONE/VILANTEROL 200/25MCG 14 PUFFS/INHALER INH SCH (08:14)
[2022-03-26] MEDS: DUTASTERIDE 0.5MG PO SCH (08:14)
[2022-03-26] MEDS: ATOVAQUONE 750 MG/5 ML UDC PO SCH ×2 (08:14→20:21)
[2022-03-26] MEDS: ENOXAPARIN 80 MG/0.8 ML SYR SQ SCH ×2 (08:14→20:21)
[2022-03-26 08:43] LABS: Basophils # (auto) 0.02 K/uL (0-0.2); Basophils % (auto) 0.7 %; Eosinophils # (auto) 0.05 K/uL (0-0.5); Eosinophils % (auto) 1.6 %; Hematocrit (blood only) 33.5 % (42-52); Immature Granulocytes # (auto) 0.14 K/uL (0.00-0.02); Immature Granulocytes % (auto) 4.6 %; Lymphocytes # (auto) 0.49 K/uL (1.2-3.4); Lymphocytes % (auto) 16.1 %; Mean Corpuscular Hemoglobin 32.3 pg (25-34); Mean Corpuscular Hgb Conc 32.8 g/dL (32-36); Mean Corpuscular Volume 98.2 fL (80-100); Mean Platelet Volume 11.1 fL (7.4-10.4); Monocytes # (auto) 0.51 K/uL (0.11-0.59); Monocytes % (auto) 16.8 %; Neutrophils # (auto) 1.83 K/uL (1.4-6.5); Neutrophils % (auto) 60.2 %; Platelet Count 142 K/uL (130-400); RDW Coefficient of Variation 18.4 % (11.5-14.5); RDW Standard Deviation 65.9 fL (36.4-46.3); Red Blood Count 3.41 M/uL (4.7-6.1); White Blood Count 3.04 K/uL (4.8-10.8)
[2022-03-26] MEDS: ONDANSETRON INJ 2 MG/ML 2 ML VIAL IV PRN (08:52)
[2022-03-26] MEDS: FOLIC ACID 1 MG in SYRINGE 9.8 ML IV SCH (08:52)
[2022-03-26 09:03] LABS: BUN Creatinine Ratio 8.2 (10-20); Calcium 7.8 mg/dl (8.5-10.1); Creatinine Clr Calc Pharmacy 88.9 ml/min; Est GFR (African American) 104.4 ml/min; Est GFR (Non-African American) 90.1 ml/min; Magnesium 1.6 mg/dl (1.7-2.4); Potassium 3.5 mmol/L (3.5-5.1)
[2022-03-26] MEDS: MAGNESIUM SULFATE / D5W 1 GM/100 ML BAG IV SCH ×2 (14:41→16:08)
[2022-03-26] MEDS: MELATONIN 3 MG TAB PO SCH (20:24)
--- NOTE | 2022-03-26 21:09 | Hospitalist Progress Note ---
Date of Service March 26, 2022 Assessment & Plan (1) PCP (pneumocystis jiroveci pneumonia): Plan: Stable, clinically improved, no hypoxia, no symptoms. Confirmed on bronchoscopy pathology 03/10/22. Thought to be the cause of his presentation at admission. Initial Rx with high-dose prednisone and high-dose Bactrim but developed severe encephalopathy. Bactrim/steroids stopped; mentation improved; Bactrim later restarted and again had altered mental status. Bactrim/steroids NOT resumed. Atovaquone was started 03/18/22 after ID consultation. End date 04/01/22. ID then advises Bactrim 3 times per week indefinitely thereafter. Per pulmonary - repeat chest CT 4-6 weeks. Appreciate pulmonary & ID consults. (2) Acute encephalopathy: Plan: MRI brain - no subacute or chronic stroke, no tumor. Mild maxillary sinusitis only. Metabolic & Toxic. Metabolic - infection (pneumocystis, now COVID-19). Toxic - steroids, bactrim, etc. Can't rule out concussion from fall with head injury 03/20/22. CT head negative 03/20/22. Likely element of hospital psychosis. This issue remains despite scheduled melatonin HS. I do believe, given he has been confused for 2-3 weeks, that he needs Rx. I checked QTc on EKG this evening - wnl. Will cautiously start risperdal 0.25mg HS and see if that helps the problem. Cont thiamine supplementation. Still awaiting B1 level. (3) COVID-19: Plan: Tested + 03/22/22. Clinically improving. He tested NEGATIVE at time of this admission thus I do believe he indeed has active infection. Exact day of illness is uncertain. No indication for Remdesivir or steroids. Cont airborne isolation. (4) Acute renal failure: Plan: Peak Cr 2.21 on 03/21/22. Resolved. Was likely prerenal. (5) Fall: Plan: Occurred 03/20/22 x 2. One fall with head injury. CT head negative for acute findings on 03/20/22. Cont PT/OT. (6) Metabolic acidosis: Plan: Resolved. Non-anion gap metabolic acidosis - resolved, s/p IV & PO sodium bicarbonate. Nephrology had been assisting. Off supplemental bicarbonate. BMP am. 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 LP in January 2022 negative for cryptococcus. Continue fluconazole 400 mg p.o. once daily x 12 months. (8) Fatigue: Plan: Likely multifactorial - ZAMZAM, pneumocystis pneumonia, COVID-19 infection, deconditioning, etc. Ongoing. Recent TSH wnl. Thiamine supplementation in place. Recent ammonia wnl. CT head negative. MRI brain negative for acute/subacute CVA. Cont PT/OT. Rehab post-d/c. (9) Acute respiratory failure with hypoxia: Plan: 2nd PCJ pneumonia. Resolved. Continue atovaquone. Continue supportive care for COVID. (10) B12 deficiency: Plan: B12 level was 162 pg/ml. Cyanocobalamin 1000 mcg IM x 5 doses, now on PO B12 1000mcg daily. B1 level pending - continue empiric thiamine. (11) History of pulmonary embolism: Plan: Continue Lovenox 1 mg/kg SQ BID (12) (HFpEF) heart failure with preserved ejection fraction: Plan: Compensated. 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 Continue prophylactic acyclovir 400 mg p.o. twice daily. (14) Thrombocytopenia: Plan: Resolved (15) Anemia: Plan: H/H stable/acceptable (16) BPH loc w urin obs/LUTS: Plan: Continue home dutasteride (17) GERD (gastroesophageal reflux disease): Plan: Continue PPI (18) Osteoporosis 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: (19) Depression: Plan: Continue home Celexa (20) Calculus of kidney: Plan: With a history of uric acid stones, follows with urology. Continue allopurinol. (21) Vitamin D deficiency: Plan: 25-OH vit D level = 9. ergocalciferol 50,000 units weekly. (22) Hypomagnesemia: Plan: still low. replete again with IV mag. repeat mag level AM. (23) Hypokalemia: Plan: repleted/resolved (24) Acute maxillary sinusitis: Plan: as seen on MRI brain. likely 2nd COVID-19 infection, but can't exclude bacterial superinfection. start omnicef 300mg BID x 7 days. day #2 of such. (25) Folate deficiency: Plan: start folic acid 1mg IV daily, first dose now likely contributing to some degree to pancytopenia folate deficiency likely from poor nutrition over the last several months in the face of recurrent infection Plan: Dispo - [facility] can accept him as long as it has been at least 5 days after the diagnosis of COVID. However, mental status is still not back to baseline -- see above Re: risperdal. Updated pt's extensively 03/24/22 and 03/25/22 by phone. Will call her tomorrow with update. Admission and Anticipated Discharge Date Admission Date: March 01, 2022 Subjective patient c/o fatigue by report he ate a good lunch but didn't eat breakfast I saw him about dinner time and he ate only fair dinner he was confused, asking if I had "enough kerosene to keep the heat on for the next few days" he knew he was in [place], but couldn't tell me why he was here or where he was otherwise no new issues Review of Systems Review of Systems: gen - fatigue cv - no cp pulm - no cough or dyspnea GI - last documented BM evening of 03/25; no abd pain or nausea Physical Exam Physical Exam: gen - awake, alert but confused mouth - MM slightly dry neck - no JVD heart - RRR, s1 s2 lungs - mild dry rales bases R>L; no increased work of breathing; no wheezing abd - soft NT ND BS+ ext - right calf/leg is larger than left leg - no change; pulses 2+ b/l; no edema psych - oriented to person, city but not time or place neuro - no myoclonic jerks today during the visit Results & Data Results & Data ([facility]) Vital Signs (Past 12 Hours) Vital Signs Temp Pulse Resp BP Pulse Ox 03/26/22 20:14 37.1 C 76 22 129/74 94 03/26/22 14:54 36.8 C 78 26 H 120/74 94 Laboratory Results Laboratory Results - last 24 hr 03/26/22 03/26/22 07:44 07:44 WBC 3.04 L RBC 3.41 L Hgb 11.0 L Hct 33.5 L MCV 98.2 MCH 32.3 MCHC 32.8 RDW Std Deviation 65.9 H RDW Coeff of Eyal 18.4 H Plt Count 142 MPV 11.1 H Immature Gran % (Auto) 4.6 Neut % (Auto) 60.2 Lymph % (Auto) 16.1 [place] % (Auto) 16.8 Eos % (Auto) 1.6 Baso % (Auto) 0.7 Neut # (Auto) 1.83 Lymph # (Auto) 0.49 L [place] # (Auto) 0.51 Eos # (Auto) 0.05 Baso # (Auto) 0.02 Immature Gran # (Auto) 0.14 H Sodium 140 Potassium 3.5 Chloride 110 H Carbon Dioxide 25 Anion Gap 5 BUN 6 Creatinine 0.73 Est Cr Clr Drug Dosing 88.9 Est GFR ( Amer) 104.4 Est GFR (Non-Af Amer) 90.1 BUN/Creatinine Ratio 8.2 L Glucose 90 Calcium 7.8 L Magnesium 1.6 L PG Care Time/CCT Total # of Minutes Spent Total Time Spent with Patient: Total time spent is greater than 50% in coordination of care (as documented) at patient's floor/unit and/or counseling patient: Coding Level of Care Code 82343 Subseq Hosp Care Lvl 2 Diagnoses PCP (pneumocystis jiroveci pneumonia) B59 Acute encephalopathy G93.40 COVID-19 U07.1 Acute renal failure N17.9 Fall W19.XXXA Metabolic acidosis E87.2 Cryptococcal pneumonitis B45.0 Fatigue R53.83 Acute respiratory failure with hypoxia J96.01 B12 deficiency E53.8 History of pulmonary embolism Z86.711 (HFpEF) heart failure with preserved ejection fraction I50.30 Light chain myeloma C90.00 Thrombocytopenia D69.6 Anemia D64.9 BPH loc w urin obs/LUTS N40.1 GERD (gastroesophageal reflux disease) K21.9 Osteoporosis 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 M81.8; C90.00 Depression F32.9 Calculus of kidney N20.0 Vitamin D deficiency E55.9 Hypomagnesemia E83.42 Hypokalemia E87.6 Acute maxillary sinusitis J01.00 Folate deficiency E53.8
[2022-03-27] MEDS: risperiDONE ODT 0.5 MG SOLTAB PO SCH ×2 (00:03→21:43)
[2022-03-27 07:55] LABS: Hematocrit (blood only) 34.5 % (42-52); Hemoglobin 11.2 g/dL (14.0-18.0); Mean Corpuscular Hemoglobin 32.2 pg (25-34); Mean Corpuscular Hgb Conc 32.5 g/dL (32-36); Mean Corpuscular Volume 99.1 fL (80-100); Mean Platelet Volume 10.1 fL (7.4-10.4); Platelet Count 135 K/uL (130-400); RDW Coefficient of Variation 18.7 % (11.5-14.5); RDW Standard Deviation 67.3 fL (36.4-46.3); Red Blood Count 3.48 M/uL (4.7-6.1)
[2022-03-27] MEDS: FOLIC ACID 1 MG in SYRINGE 9.8 ML IV SCH (08:35)
[2022-03-27] MEDS: FLUCONAZOLE 100 MG TAB PO SCH (08:35)
[2022-03-27] MEDS: PANTOprazole 40 MG TAB PO SCH (08:35)
[2022-03-27] MEDS: CITALOPRAM 20 MG TAB PO SCH (08:35)
[2022-03-27] MEDS: FAMOTIDINE 20 MG TAB PO SCH ×2 (08:36→21:41)
[2022-03-27] MEDS: METOPROLOL TARTRATE 25 MG TAB PO SCH ×2 (08:36→21:42)
[2022-03-27] MEDS: CYANOCOBALAMIN (B-12) 500 MCG TABLET PO SCH (08:36)
[2022-03-27] MEDS: CEFDINIR 300 MG CAP PO SCH ×2 (08:36→21:39)
[2022-03-27] MEDS: ENOXAPARIN 80 MG/0.8 ML SYR SQ SCH ×2 (08:36→21:40)
[2022-03-27] MEDS: DOCUSATE SODIUM/SENNA 50/8.6MG TAB PO SCH (08:36)
[2022-03-27] MEDS: allopurinoL 100 MG TAB PO SCH ×2 (08:37→21:38)
[2022-03-27] MEDS: THIAMINE HCL 100 MG TAB PO SCH ×2 (08:37→21:44)
[2022-03-27] MEDS: ACYCLOVIR 400 MG TAB PO SCH ×2 (08:37→21:37)
[2022-03-27] MEDS: ATOVAQUONE 750 MG/5 ML UDC PO SCH ×2 (08:37→21:39)
[2022-03-27] MEDS: DUTASTERIDE 0.5MG PO SCH (08:38)
[2022-03-27] MEDS: FLUTICASONE/VILANTEROL 200/25MCG 14 PUFFS/INHALER INH SCH (08:38)
[2022-03-27] MEDS: MAGNESIUM OXIDE 400 MG TAB PO SCH (11:24)
--- NOTE | 2022-03-27 12:16 | Electrocardiogram Report ---
Test Reason : Blood Pressure : / mmHG Vent. Rate : 084 BPM Atrial Rate : 084 BPM P-R Int : 132 ms QRS Dur : 090 ms QT Int : 384 ms P-R-T Axes : 014 -41 048 degrees QTc Int : 453 ms Poor data quality, interpretation may be adversely affected Normal sinus rhythm with sinus arrhythmia Left axis deviation Voltage criteria for left ventricular hypertrophy Poor R wave progression, consider anterior MD vs. lead placement vs. LVH Abnormal ECG When compared with ECG of 21-MAR-2022 13:51, Nonspecific T wave abnormality, worse in Lateral leads Confirmed by John Diane ([id number]) on 03/27/2022 12:16:12 PM Referred By: REFERRED SELF Confirmed By:John Diane
--- NOTE | 2022-03-27 12:25 | Hospitalist Progress Note ---
Date of Service March 27, 2022 Assessment & Plan (1) PCP (pneumocystis jiroveci pneumonia): Plan: Stable, clinically improved, no hypoxia, no symptoms. Confirmed on bronchoscopy pathology 03/10/22. Thought to be the cause of his presentation at admission. Initial Rx with high-dose prednisone and high-dose Bactrim but developed severe encephalopathy. Bactrim/steroids stopped; mentation improved; Bactrim later restarted and again had altered mental status. Bactrim/steroids NOT resumed. Atovaquone was started 03/18/22 after ID consultation. End date 04/01/22. ID then advises Bactrim 3 times per week indefinitely thereafter. Per pulmonary - repeat chest CT 4-6 weeks. Appreciate pulmonary & ID consults. I repeated a cxr today because of his coughing - cxr improved from prior imaging. Stable. (2) Acute encephalopathy: Plan: Ongoing. He appears to have tolerated the low-dose risperdal 0.25mg HS last night. Not overly sedated from such. Cont risperdal at current dose. Recent MRI brain - no subacute or chronic stroke, no tumor. Mild maxillary sinusitis only. Metabolic & Toxic. Metabolic - infection (pneumocystis, now COVID-19). Toxic - steroids, bactrim, etc. Can't rule out concussion from fall with head injury 03/20/22. CT head negative 03/20/22. Cont thiamine supplementation. Still awaiting B1 level. (3) COVID-19: Plan: Tested + 03/22/22. Clinically improving. SNF wanted a retest today - still positive (not surprising). He tested NEGATIVE at time of this admission thus I do believe he indeed has active infection. Exact day of illness is uncertain. No indication for Remdesivir or steroids. Cont airborne isolation. CXR stable today. I do believe the COVID is contributing to ongoing fatigue and confusion along with failure to thrive. (4) Acute renal failure: Plan: Peak Cr 2.21 on 03/21/22. Resolved. Was likely prerenal. (5) Fall: Plan: Occurred 03/20/22 x 2. One fall with head injury. CT head negative for acute findings on 03/20/22. Cont PT/OT. (6) Metabolic acidosis: Plan: Resolved. Non-anion gap metabolic acidosis - resolved, s/p IV & PO sodium bicarbonate. Nephrology had been assisting. Off supplemental bicarbonate. BMP am. 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 LP in January 2022 negative for cryptococcus. Continue fluconazole 400 mg p.o. once daily x 12 months. EKG last evening with stable QTc. (8) Fatigue: Plan: Likely multifactorial - ZAMZAM, pneumocystis pneumonia, COVID-19 infection, deconditioning, etc. Ongoing. Recent TSH wnl. Thiamine supplementation in place. Recent ammonia wnl. CT head negative. MRI brain negative for acute/subacute CVA. Cont PT/OT. Rehab post-d/c. (9) Acute respiratory failure with hypoxia: Plan: 2nd PCJ pneumonia. Resolved. Continue atovaquone. Continue supportive care for COVID. (10) B12 deficiency: Plan: B12 level was 162 pg/ml. Cyanocobalamin 1000 mcg IM x 5 doses, now on PO B12 1000mcg daily. B1 level pending - continue empiric thiamine. (11) History of pulmonary embolism: Plan: Continue Lovenox 1 mg/kg SQ BID (12) (HFpEF) heart failure with preserved ejection fraction: Plan: Compensated. 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 Continue prophylactic acyclovir 400 mg p.o. twice daily. (14) Thrombocytopenia: Plan: Resolved (15) Anemia: Plan: H/H stable/acceptable (16) BPH loc w urin obs/LUTS: Plan: Continue home dutasteride (17) GERD (gastroesophageal reflux disease): Plan: Continue PPI (18) Osteoporosis 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: (19) Depression: Plan: Continue home Celexa Consider dose increase (20) Calculus of kidney: Plan: With a history of uric acid stones, follows with urology. Continue allopurinol. (21) Vitamin D deficiency: Plan: 25-OH vit D level = 9. ergocalciferol 50,000 units weekly. (22) Hypomagnesemia: Plan: repleted/resolved mag 1.8 today (23) Hypokalemia: Plan: repleted/resolved (24) Acute maxillary sinusitis: Plan: as seen on MRI brain. likely 2nd COVID-19 infection, but can't exclude bacterial superinfection. start omnicef 300mg BID x 7 days. day #3 of such. (25) Folate deficiency: Plan: 1mg folate x 1 month Plan: Dispo - [facility] can accept him as long as it has been at least 5 days after the diagnosis of COVID. However, mental status is still not back to baseline -- see above Re: risperdal. and liquid intake remains quite poor. not ready for discharge. Updated pt's extensively 03/24/22 and 03/25/22 by phone. Updated her again today - 15 min conversation. total care time today 35 minutes Admission and Anticipated Discharge Date Admission Date: March 01, 2022 Subjective no major events overnight slept all night per staff eating is fair at best liquid intake is very poor; only drinks if encouraged to do so during rounds he was lying in bed thought it was February, and "2-0-2-2" for year knows he is in the hospital but, like prior visits, can't tell me why denies any pain denies any dyspnea Review of Systems Review of Systems: gen - "I'm tired" cv - no cp pulm - cough, but no dyspnea gi - no pain Physical Exam Physical Exam: gen - awake, alert - still confused; coughing mouth - MM very dry neck - no JVD heart - RRR, s1 s2 lungs - mild dry rales bases R>L; no increased work of breathing; no wheezing abd - soft NT ND BS+ ext - right calf/leg is larger than left leg - no change; pulses 2+ b/l; no edema neuro - no myoclonic jerks today during the visit Results & Data Results & Data ([facility]) Vital Signs (Past 12 Hours) Vital Signs Temp Pulse Resp BP Pulse Ox 03/27/22 08:18 36.9 C 81 18 134/82 91 Laboratory Results Laboratory Results - last 24 hr 03/27/22 03/27/22 07:27 07:27 WBC 3.70 L RBC 3.48 L Hgb 11.2 L Hct 34.5 L MCV 99.1 MCH 32.2 MCHC 32.5 RDW Std Deviation 67.3 H RDW Coeff of Eyal 18.7 H Plt Count 135 MPV 10.1 Magnesium 1.8 PG Care Time/CCT Total # of Minutes Spent Total Time Spent with Patient: Total time spent is greater than 50% in coordination of care (as documented) at patient's floor/unit and/or counseling patient: Coding Level of Care Code 27592 Subseq Hosp Care Lvl 3 Diagnoses PCP (pneumocystis jiroveci pneumonia) B59 Acute encephalopathy G93.40 COVID-19 U07.1 Acute renal failure N17.9 Fall W19.XXXA Metabolic acidosis E87.2 Cryptococcal pneumonitis B45.0 Fatigue R53.83 Acute respiratory failure with hypoxia J96.01 B12 deficiency E53.8 History of pulmonary embolism Z86.711 (HFpEF) heart failure with preserved ejection fraction I50.30 Light chain myeloma C90.00 Thrombocytopenia D69.6 Anemia D64.9 BPH loc w urin obs/LUTS N40.1 GERD (gastroesophageal reflux disease) K21.9 Osteoporosis 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 M81.8; C90.00 Depression F32.9 Calculus of kidney N20.0 Vitamin D deficiency E55.9 Hypomagnesemia E83.42 Hypokalemia E87.6 Acute maxillary sinusitis J01.00 Folate deficiency E53.8
--- NOTE | 2022-03-27 13:06 | XRay Report ---
XR chest 1V portable CLINICAL HISTORY: recent pneumocytis pneumonia, recent COVID COMPARISON STUDY: Chest CT March 01, 2022. Chest radiograph March 09, 2022. FINDINGS: Lytic skeletal lesions are better depicted on prior CT. There is no pneumothorax or pleural effusion. Left internal jugular [id number] remains in place. Bilateral airspace opacities, greate r within the left lung, have improved since exam of March 09, 2022. There is moderate residual left ortega g airspace opacity. Cardiomegaly is unchanged. IMPRESSION: Persistent, but improved, bilateral pneumonia, greater within the left lung. ACT 112: Negative or not required by law. Electronically signed by: Don Snowden M.D. 03/27/2022 1:04 PM
[2022-03-27] MEDS: MELATONIN 3 MG TAB PO SCH (21:41)
[2022-03-28] MEDS: ENOXAPARIN 80 MG/0.8 ML SYR SQ SCH ×2 (08:12→22:17)
[2022-03-28] MEDS: ATOVAQUONE 750 MG/5 ML UDC PO SCH ×2 (08:12→22:23)
[2022-03-28] MEDS: DUTASTERIDE 0.5MG PO SCH (08:12)
[2022-03-28] MEDS: DOCUSATE SODIUM/SENNA 50/8.6MG TAB PO SCH (08:13)
[2022-03-28] MEDS: FLUCONAZOLE 100 MG TAB PO SCH (08:13)
[2022-03-28] MEDS: CITALOPRAM 20 MG TAB PO SCH (08:13)
[2022-03-28] MEDS: MAGNESIUM OXIDE 400 MG TAB PO SCH (08:13)
[2022-03-28] MEDS: THIAMINE HCL 100 MG TAB PO SCH ×2 (08:13→22:18)
[2022-03-28] MEDS: PANTOprazole 40 MG TAB PO SCH (08:13)
[2022-03-28] MEDS: CYANOCOBALAMIN (B-12) 500 MCG TABLET PO SCH (08:14)
[2022-03-28] MEDS: CEFDINIR 300 MG CAP PO SCH ×2 (08:15→22:14)
[2022-03-28] MEDS: METOPROLOL TARTRATE 25 MG TAB PO SCH ×2 (08:15→22:15)
[2022-03-28] MEDS: allopurinoL 100 MG TAB PO SCH ×2 (08:15→22:16)
[2022-03-28] MEDS: FAMOTIDINE 20 MG TAB PO SCH ×2 (08:15→22:15)
[2022-03-28] MEDS: FLUTICASONE/VILANTEROL 200/25MCG 14 PUFFS/INHALER INH SCH (08:15)
[2022-03-28] MEDS: ACYCLOVIR 400 MG TAB PO SCH ×2 (08:15→22:16)
[2022-03-28] MEDS: FOLIC ACID 1 MG in SYRINGE 9.8 ML IV SCH (08:26)
--- NOTE | 2022-03-28 21:07 | Hospitalist Progress Note ---
Date of Service March 28, 2022 Assessment & Plan (1) PCP (pneumocystis jiroveci pneumonia): Plan: Stable, clinically improved, no hypoxia, no symptoms. Confirmed on bronchoscopy pathology 03/10/22. Thought to be the cause of his presentation at admission. Initial Rx with high-dose prednisone and high-dose Bactrim but developed severe encephalopathy. Bactrim/steroids stopped; mentation improved; Bactrim later restarted and again had altered mental status. Bactrim/steroids NOT resumed. Atovaquone was started 03/18/22 after ID consultation. End date 04/01/22. ID then advises Bactrim 3 times per week indefinitely thereafter once atovaquone has completed. Per pulmonary - repeat chest CT 4-6 weeks. Appreciate pulmonary & ID consults. Repeat CXR 03/27 - improving infiltrates. (2) Acute encephalopathy: Plan: Ongoing with some days much better than others. Continue risperdal 0.25mg HS - tolerating without side effects. Most recent EKG with stable QTc. Repeat EKG in am to check QTc once again. Recent MRI brain - no subacute or chronic stroke, no tumor. Mild maxillary sinusitis only. Etiology of confusion -- both Metabolic & Toxic. Metabolic - infection (pneumocystis, now COVID-19). Toxic - steroids, bactrim, etc. Can't rule out concussion from fall with head injury that occurred on 03/20/22. CT head negative 03/20/22. Cont thiamine supplementation. B1 level <6 (undetectable). (3) COVID-19: Plan: Tested + 03/22/22. Clinically improving. SNF wanted a retest 03/27 - still positive (not surprising). He tested NEGATIVE at time of this admission thus I do believe he indeed has active infection. Exact day of illness is uncertain. No indication for Remdesivir or steroids. No hypoxia. Fatigue/confusion are his symptoms from his COVID. Cont airborne isolation. CXR stable 03/27. (4) Acute renal failure: Plan: Peak Cr 2.21 on 03/21/22. Resolved. Was likely prerenal. (5) Fall: Plan: Occurred 03/20/22 x 2. One fall with head injury. CT head negative for acute findings on 03/20/22. Cont PT/OT. He had MRI brain since that fall and MRI did not show traumatic findings or ICH. (6) Metabolic acidosis: Plan: Resolved. Non-anion gap metabolic acidosis - resolved, s/p IV & PO sodium bicarbonate. Nephrology had been assisting. Off supplemental bicarbonate. BMP am. 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 LP in January 2022 negative for cryptococcus. Continue fluconazole 400 mg p.o. once daily x 12 months. EKG in am to recheck QTc. (8) Fatigue: Plan: Likely multifactorial - ZAMZAM, pneumocystis pneumonia, COVID-19 infection, deconditioning, B1 deficiency, etc. Ongoing. Recent TSH wnl. Thiamine supplementation in place. Recent ammonia wnl. CT head negative. MRI brain negative for acute/subacute CVA. B1 level undetectable - replacing. Cont PT/OT. Rehab post-d/c. (9) Acute respiratory failure with hypoxia: Plan: 2nd PCJ pneumonia. Resolved. Continue atovaquone. Continue supportive care for COVID. (10) B12 deficiency: Plan: B12 level was 162 pg/ml. Cyanocobalamin 1000 mcg IM x 5 doses, now on PO B12 1000mcg daily. (11) History of pulmonary embolism: Plan: Continue Lovenox 1 mg/kg SQ BID (12) (HFpEF) heart failure with preserved ejection fraction: Plan: Compensated. 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 Continue prophylactic acyclovir 400 mg p.o. twice daily. (14) Thrombocytopenia: Plan: Resolved Recheck CBC am (15) Anemia: Plan: H/H stable/acceptable Recheck CBC am (16) BPH loc w urin obs/LUTS: Plan: Continue home dutasteride (17) GERD (gastroesophageal reflux disease): Plan: Continue PPI (18) Osteoporosis 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: (19) Depression: Plan: Continue home Celexa Consider dose increase (20) Calculus of kidney: Plan: With a history of uric acid stones, follows with urology. Continue allopurinol. (21) Vitamin D deficiency: Plan: 25-OH vit D level = 9. ergocalciferol 50,000 units weekly. (22) Hypomagnesemia: Plan: repleted/resolved (23) Hypokalemia: Plan: repleted/resolved (24) Acute maxillary sinusitis: Plan: as seen on MRI brain. likely 2nd COVID-19 infection, but can't exclude bacterial superinfection. omnicef 300mg BID x 7 days. day #4 of such. (25) Folate deficiency: Plan: 1mg folate x 1 month (26) Thiamine deficiency: Plan: level undetectable (<6) cont thiamine 200mg po BID x 1 month certainly this can contribute to memory issues Plan: [facility] can accept him as long as it has been at least 5 days after the diagnosis of COVID. However, mental status is still not back to baseline -- see above Re: risperdal. and liquid intake remains quite poor. still not ready for discharge. Updated pt's extensively 03/24/22, 03/25/22, and 03/27/22 by phone. Admission and Anticipated Discharge Date Admission Date: March 01, 2022 Subjective per staff -- slept ok overnight; no agitation; eating 50-75% of meals; liquid intake remains stubborn/poor unless he is encouraged to drink continues with mild confusion, waxing/waning during the visit he was resting comfortably in bed he knew he was at "[facility]" knew it was 2021 still thought it was May still uncertain what brought him to [facility] late in the visit he said that he had gotten a notice in the mail "2 days ago" that [facility] wanted to "Buy [address] acres of my land" (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 farm 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 [place]) and that this was upsetting to him and that "I'm calling my cousin Ky who's a market research lead about this" Review of Systems Review of Systems: cv - no cp pulm - cough but no dyspnea GI - no pain neuro - mild left-sided headache (staff report he hadn't complained of such al day) Physical Exam Physical Exam: gen - awake, alert, oriented to person, place, and partially time; still with confusion otherwise mouth - MM slightly less dry today neck - no JVD heart - RRR, s1 s2, no murmur lungs - mild dry rales bases b/l; no wheeze; good airation abd - soft NT ND BS+ ext - right calf/leg is larger than left leg - no change; pulses 2+ b/l; no edema neuro - PERRL; no facial droop; tongue midline; strength 5/5 x 4 exts Results & Data Results & Data ([facility]) Vital Signs (Past 12 Hours) Vital Signs Temp Pulse Resp BP Pulse Ox 03/28/22 11:39 36.5 C 95 H 18 137/82 94 PG Care Time/CCT Total # of Minutes Spent Total Time Spent with Patient: Total time spent is greater than 50% in coordination of care (as documented) at patient's floor/unit and/or counseling patient: Coding Level of Care Code 53956 Subseq Hosp Care Lvl 2 Diagnoses PCP (pneumocystis jiroveci pneumonia) B59 Acute encephalopathy G93.40 COVID-19 U07.1 Acute renal failure N17.9 Fall W19.XXXA Metabolic acidosis E87.2 Cryptococcal pneumonitis B45.0 Fatigue R53.83 Acute respiratory failure with hypoxia J96.01 B12 deficiency E53.8 History of pulmonary embolism Z86.711 (HFpEF) heart failure with preserved ejection fraction I50.30 Light chain myeloma C90.00 Thrombocytopenia D69.6 Anemia D64.9 BPH loc w urin obs/LUTS N40.1 GERD (gastroesophageal reflux disease) K21.9 Osteoporosis 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 M81.8; C90.00 Depression F32.9 Calculus of kidney N20.0 Vitamin D deficiency E55.9 Hypomagnesemia E83.42 Hypokalemia E87.6 Acute maxillary sinusitis J01.00 Folate deficiency E53.8 Thiamine deficiency E51.9
[2022-03-28] MEDS: MELATONIN 3 MG TAB PO SCH (22:10)
[2022-03-28] MEDS: risperiDONE ODT 0.5 MG SOLTAB PO SCH (22:12)
[2022-03-29 06:25] LABS: Hematocrit (blood only) 35.4 % (42-52); Hemoglobin 11.3 g/dL (14.0-18.0); Mean Corpuscular Hemoglobin 32.1 pg (25-34); Mean Corpuscular Hgb Conc 31.9 g/dL (32-36); Mean Corpuscular Volume 100.6 fL (80-100); Platelet Count 145 K/uL (130-400); RDW Coefficient of Variation 19.1 % (11.5-14.5); RDW Standard Deviation 69.4 fL (36.4-46.3); Red Blood Count 3.52 M/uL (4.7-6.1); White Blood Count 4.84 K/uL (4.8-10.8)
[2022-03-29 06:45] LABS: ALC (manual) 0.46 K/uL (1.2-3.4); ANC (manual) 3.92 K/uL (1.4-6.5); Eosinophils # (manual) 0.08 K/uL (0-0.5); Eosinophils % (manual) 1.7 %; Lymphocytes # (manual) 0.46 K/uL (1.2-3.4); Lymphocytes % (manual) 9.6 %; Monocytes # (manual) 0.25 K/uL (0.11-0.59); Monocytes % (manual) 5.2 %; Myelocytes # (manual) 0.13 K/uL (0-0); Myelocytes % (manual) 2.6 %; Neutrophils # (manual) 3.92 K/uL (1.4-6.5); Neutrophils % (manual) 80.9 %
[2022-03-29 06:52] LABS: BUN Creatinine Ratio 14.3 (10-20); Calcium 8.4 mg/dl (8.5-10.1); Creatinine Clr Calc Pharmacy 84.3 ml/min; Est GFR (African American) 102.2 ml/min; Est GFR (Non-African American) 88.1 ml/min; Potassium 3.8 mmol/L (3.5-5.1)
[2022-03-29] MEDS: MAGNESIUM OXIDE 400 MG TAB PO SCH (08:37)
[2022-03-29] MEDS: DOCUSATE SODIUM/SENNA 50/8.6MG TAB PO SCH (08:37)
[2022-03-29] MEDS: THIAMINE HCL 100 MG TAB PO SCH ×2 (08:38→21:08)
[2022-03-29] MEDS: FAMOTIDINE 20 MG TAB PO SCH ×2 (08:38→21:06)
[2022-03-29] MEDS: ACYCLOVIR 400 MG TAB PO SCH ×2 (08:38→21:03)
[2022-03-29] MEDS: allopurinoL 100 MG TAB PO SCH ×2 (08:38→21:04)
[2022-03-29] MEDS: PANTOprazole 40 MG TAB PO SCH (08:38)
[2022-03-29] MEDS: FLUCONAZOLE 100 MG TAB PO SCH (08:39)
[2022-03-29] MEDS: CEFDINIR 300 MG CAP PO SCH ×2 (08:39→21:05)
[2022-03-29] MEDS: METOPROLOL TARTRATE 25 MG TAB PO SCH ×2 (08:39→21:07)
[2022-03-29] MEDS: FLUTICASONE/VILANTEROL 200/25MCG 14 PUFFS/INHALER INH SCH (08:39)
[2022-03-29] MEDS: CYANOCOBALAMIN (B-12) 500 MCG TABLET PO SCH (08:39)
[2022-03-29] MEDS: CITALOPRAM 20 MG TAB PO SCH (08:40)
[2022-03-29] MEDS: ENOXAPARIN 80 MG/0.8 ML SYR SQ SCH ×2 (08:40→21:05)
[2022-03-29] MEDS: DUTASTERIDE 0.5MG PO SCH (08:40)
[2022-03-29] MEDS: ATOVAQUONE 750 MG/5 ML UDC PO SCH ×2 (08:42→21:05)
[2022-03-29] MEDS: ERGOCALCIFEROL 50,000 UNITS 1250 MCG CAP PO SCH (08:42)
[2022-03-29] MEDS: FOLIC ACID 1 MG in SYRINGE 9.8 ML IV SCH (08:44)
--- NOTE | 2022-03-29 20:16 | Hospitalist Progress Note ---
Date of Service March 29, 2022 Assessment & Plan (1) PCP (pneumocystis jiroveci pneumonia): Plan: Stable, clinically improved, no hypoxia, no symptoms. Confirmed on bronchoscopy pathology 03/10/22. Thought to be the cause of his presentation at admission. Initial Rx with high-dose prednisone and high-dose Bactrim but developed severe encephalopathy. Bactrim/steroids stopped; mentation improved; Bactrim later restarted and again had altered mental status. Bactrim/steroids NOT resumed. Atovaquone was started 03/18/22 after ID consultation. End date 04/01/22. ID then advises Bactrim 3 times per week indefinitely thereafter once atovaquone has completed. Per pulmonary - repeat chest CT 4-6 weeks. Appreciate pulmonary & ID consults. Repeat CXR 03/27 - improving infiltrates. Remains very short of breath in light of recurrent pneumonia. PE not suspected - he is on therapeutic lovenox. (2) Acute encephalopathy: Plan: Ongoing with some days much better than others. Continue risperdal -- increase to 0.5mg HS due to ongoing confusion. Most recent EKG with stable QTc. Recent MRI brain - no subacute or chronic stroke, no tumor. Mild maxillary sinusitis only. Etiology of confusion -- both Metabolic & Toxic. Metabolic - infection (pneumocystis, now COVID-19). Toxic - steroids, bactrim, etc. Can't rule out concussion from fall with head injury that occurred on 03/20/22. CT head negative 03/20/22. Cont thiamine supplementation. B1 level <6 (undetectable). (3) COVID-19: Plan: Tested + 03/22/22. Clinically improving. SNF wanted a retest 03/27 - still positive (not surprising). He tested NEGATIVE at time of this admission thus I do believe he indeed has active infection. Exact day of illness is uncertain. No indication for Remdesivir or steroids. No hypoxia. Fatigue/confusion are his symptoms from his COVID. Cont airborne isolation. CXR stable 03/27. (4) Acute renal failure: Plan: Peak Cr 2.21 on 03/21/22. Resolved. Was likely prerenal. (5) Fall: Plan: Occurred 03/20/22 x 2. One fall with head injury. CT head negative for acute findings on 03/20/22. Cont PT/OT. He had MRI brain since that fall and MRI did not show traumatic findings or ICH. Although he did not fall today he certainly is at high risk given his severe deconditioning and ambulatory dysfunction - I asked staff to move him to 2south negative pressure room. Those rooms have good visibility for nursing staff to reduce fall risk etc. (6) Metabolic acidosis: Plan: Resolved. Non-anion gap metabolic acidosis - resolved, s/p IV & PO sodium bicarbonate. Nephrology had been assisting. Off supplemental bicarbonate. BMP am. 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 LP in January 2022 negative for cryptococcus. Continue fluconazole 400 mg p.o. once daily x 12 months. Most recent EKG with stable QTc. (8) Fatigue: Plan: Likely multifactorial - ZAMZAM, pneumocystis pneumonia, COVID-19 infection, deconditioning, B1 deficiency, etc. Ongoing. Recent TSH wnl. Thiamine supplementation in place. Recent ammonia wnl. CT head negative. MRI brain negative for acute/subacute CVA. B1 level undetectable - replacing. Cont PT/OT. Rehab post-d/c. (9) Acute respiratory failure with hypoxia: Plan: 2nd PCJ pneumonia. Resolved. Continue atovaquone. Continue supportive care for COVID. (10) B12 deficiency: Plan: B12 level was 162 pg/ml. Cyanocobalamin 1000 mcg IM x 5 doses, now on PO B12 1000mcg daily. (11) History of pulmonary embolism: Plan: Continue Lovenox 1 mg/kg SQ BID (12) (HFpEF) heart failure with preserved ejection fraction: Plan: Compensated. 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 Continue prophylactic acyclovir 400 mg p.o. twice daily. (14) Thrombocytopenia: Plan: Resolved Recheck CBC am (15) Anemia: Plan: H/H stable/acceptable Recheck CBC am (16) BPH loc w urin obs/LUTS: Plan: Continue home dutasteride (17) GERD (gastroesophageal reflux disease): Plan: Continue PPI (18) Osteoporosis 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: (19) Depression: Plan: Continue home Celexa Consider dose increase (20) Calculus of kidney: Plan: With a history of uric acid stones, follows with urology. Continue allopurinol. (21) Vitamin D deficiency: Plan: 25-OH vit D level = 9. ergocalciferol 50,000 units weekly. (22) Hypomagnesemia: Plan: repleted/resolved (23) Hypokalemia: Plan: repleted/resolved (24) Acute maxillary sinusitis: Plan: as seen on MRI brain. likely 2nd COVID-19 infection, but can't exclude bacterial superinfection. omnicef 300mg BID x 7 days. day #5 of such. (25) Folate deficiency: Plan: 1mg folate x 1 month (26) Thiamine deficiency: Plan: level undetectable (<6) cont thiamine 200mg po BID x 1 month certainly this can contribute to memory issues Plan: Dispo - [facility] However, mental status is still not back to baseline or close to baseline-- see above Re: risperdal. And dietary intake just starting to improve. No discharge just yet. Updated pt's extensively 03/24/22, 03/25/22, 03/27/22, and 03/29/22 by phone. Admission and Anticipated Discharge Date Admission Date: March 01, 2022 Subjective no events overnight per staff appetite has been improved today per staff when I entered pt's room he was not in bed I found him sitting on the toilet naked he had somehow managed to get OOB to the bathroom on his own accord there was copious feces on the floor along with bed linens, etc he was awake, alert sitting on toilet I called out to nursing - 2 nurses came to room to assist me in cleaning the room & getting him back in bed he was VERY WEAK ambulating from bathroom back to bed; the 3 of us assisted him with rolling walker he was VERY short of breath when he got to bed it took him about 1 minute to recover from the dyspnea he denied any complaints during my visit no pain he knew he was in the hospital and that it was [place] but was confused like previous Review of Systems Review of Systems: cv - no cp pulm - severe WRIGHT; minimal cough GI - no pain Physical Exam Physical Exam: gen - VERY awake, alert, and animated today/talkative mouth - MM dry neck - no JVD heart - RRR, s1 s2, no murmur lungs - mild dry rales bases b/l; no wheeze; good airation (short of breath when he returned from bathroom) abd - soft NT ND BS+ ext - right calf/leg is larger than left leg when he returned from bathroom his cap refill was poor and his feet was mottled once back in bed and after about 1 minute his cap refill was improved venous insufficiency changes also present on legs Results & Data Results & Data ([facility]) Vital Signs (Past 12 Hours) Vital Signs Temp Pulse Resp BP Pulse Ox 03/29/22 15:49 36.8 C 79 18 152/88 H 94 Laboratory Results Laboratory Results - last 24 hr 03/29/22 03/29/22 05:50 05:50 WBC 4.84 RBC 3.52 L Hgb 11.3 L Hct 35.4 L MCV 100.6 H MCH 32.1 MCHC 31.9 L RDW Std Deviation 69.4 H RDW Coeff of Eyal 19.1 H Plt Count 145 MPV 11.0 H Neutrophils % (Manual) 80.9 Lymphocytes % (Manual) 9.6 Monocytes % (Manual) 5.2 Eosinophils % (Manual) 1.7 Myelocytes % (Man) 2.6 Neutrophils # (Manual) 3.92 Total Absolute Neuts 3.92 Lymphocytes # (Manual) 0.46 L Total Abs Lymphocytes 0.46 L Monocytes # (Manual) 0.25 Eosinophils # (Manual) 0.08 Myelocytes # (Manual) 0.13 H Sodium 141 Potassium 3.8 Chloride 110 H Carbon Dioxide 26 Anion Gap 5 BUN 11 Creatinine 0.77 Est Cr Clr Drug Dosing 84.3 Est GFR ( Amer) 102.2 Est GFR (Non-Af Amer) 88.1 BUN/Creatinine Ratio 14.3 Glucose 97 Calcium 8.4 L C-Reactive Protein 1.00 H PG Care Time/CCT Total # of Minutes Spent Total Time Spent with Patient: Total time spent is greater than 50% in coordination of care (as documented) at patient's floor/unit and/or counseling patient: Coding Level of Care Code 23277 Subseq Hosp Care Lvl 2 Diagnoses PCP (pneumocystis jiroveci pneumonia) B59 Acute encephalopathy G93.40 COVID-19 U07.1 Acute renal failure N17.9 Fall W19.XXXA Metabolic acidosis E87.2 Cryptococcal pneumonitis B45.0 Fatigue R53.83 Acute respiratory failure with hypoxia J96.01 B12 deficiency E53.8 History of pulmonary embolism Z86.711 (HFpEF) heart failure with preserved ejection fraction I50.30 Light chain myeloma C90.00 Thrombocytopenia D69.6 Anemia D64.9 BPH loc w urin obs/LUTS N40.1 GERD (gastroesophageal reflux disease) K21.9 Osteoporosis 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 M81.8; C90.00 Depression F32.9 Calculus of kidney N20.0 Vitamin D deficiency E55.9 Hypomagnesemia E83.42 Hypokalemia E87.6 Acute maxillary sinusitis J01.00 Folate deficiency E53.8 Thiamine deficiency E51.9
[2022-03-29] MEDS: MELATONIN 3 MG TAB PO SCH (21:06)
[2022-03-29] MEDS: risperiDONE ODT 0.5 MG SOLTAB PO SCH (21:07)
--- NOTE | 2022-03-29 21:30 | Electrocardiogram Report ---
Test Reason : Blood Pressure : / mmHG Vent. Rate : 069 BPM Atrial Rate : 069 BPM P-R Int : 150 ms QRS Dur : 086 ms QT Int : 434 ms P-R-T Axes : 040 -33 086 degrees QTc Int : 465 ms Sinus rhythm with marked sinus arrhythmia Left axis deviation Left ventricular hypertrophy with repolarization abnormality Abnormal ECG When compared with ECG of 26-MAR-2022 20:08, Borderline criteria for Lateral infarct are no longer Present Confirmed by Kurt Araujo ([id number]) on 03/29/2022 9:29:36 PM Referred By: REFERRED SELF Confirmed By:Kurt Araujo
[2022-03-30] MEDS: MAGNESIUM OXIDE 400 MG TAB PO SCH (08:41)
[2022-03-30] MEDS: DOCUSATE SODIUM/SENNA 50/8.6MG TAB PO SCH (08:42)
[2022-03-30] MEDS: CITALOPRAM 20 MG TAB PO SCH (08:42)
[2022-03-30] MEDS: FLUCONAZOLE 100 MG TAB PO SCH (08:42)
[2022-03-30] MEDS: CYANOCOBALAMIN (B-12) 500 MCG TABLET PO SCH (08:42)
[2022-03-30] MEDS: FAMOTIDINE 20 MG TAB PO SCH ×2 (08:42→20:33)
[2022-03-30] MEDS: CEFDINIR 300 MG CAP PO SCH ×2 (08:43→20:32)
[2022-03-30] MEDS: allopurinoL 100 MG TAB PO SCH ×2 (08:43→20:30)
[2022-03-30] MEDS: ACYCLOVIR 400 MG TAB PO SCH ×2 (08:43→20:29)
[2022-03-30] MEDS: ENOXAPARIN 80 MG/0.8 ML SYR SQ SCH ×2 (08:43→20:33)
[2022-03-30] MEDS: THIAMINE HCL 100 MG TAB PO SCH ×2 (08:43→20:47)
[2022-03-30] MEDS: METOPROLOL TARTRATE 25 MG TAB PO SCH ×2 (08:43→20:51)
[2022-03-30] MEDS: ATOVAQUONE 750 MG/5 ML UDC PO SCH ×2 (08:43→20:32)
[2022-03-30] MEDS: PANTOprazole 40 MG TAB PO SCH (08:43)
[2022-03-30] MEDS: FOLIC ACID 1 MG in SYRINGE 9.8 ML IV SCH (08:44)
[2022-03-30] MEDS: FLUTICASONE/VILANTEROL 200/25MCG 14 PUFFS/INHALER INH SCH (08:56)
[2022-03-30] MEDS: DUTASTERIDE 0.5MG PO SCH (08:56)
[2022-03-30] MEDS: MELATONIN 3 MG TAB PO SCH (20:38)
[2022-03-30] MEDS: risperiDONE ODT 0.5 MG SOLTAB PO SCH (20:46)
--- NOTE | 2022-03-30 21:30 | XRay Report ---
RIGHT FOOT 2 VIEWS CLINICAL HISTORY: Heel pain. FINDINGS: AP and lateral views of the right foot are obtained. No prior studies are available for [facility] at the time of dictation. The skeletal structures are osteopenic. No fracture is identified. Mild osteoarthritic change is seen at the first metatarsophalangeal joint. There are large dorsal and plantar calcaneal enthesophytes. Degenerative spurring is seen along the dorsal aspect of the tarsal bones. The overlying soft tissues are normal as visualized. There is advanced atherosclerotic calcif ication of the regional arteries. IMPRESSION: 1. No acute bony abnormality is identified. 2. Osteopenia with degenerative change and large heel spurs as above. Electronically signed by: London Sagastume M.D. 03/30/2022 9:28 PM
--- NOTE | 2022-03-30 22:33 | Hospitalist Progress Note ---
Date of Service March 30, 2022 Assessment & Plan (1) PCP (pneumocystis jiroveci pneumonia): Plan: Stable, clinically improved, no hypoxia, resolving cough. Confirmed on bronchoscopy pathology 03/10/22. Thought to be the cause of his presentation at admission. Initial Rx with high-dose prednisone and high-dose Bactrim but developed severe encephalopathy. Bactrim/steroids stopped; mentation improved; Bactrim later restarted and again had altered mental status. Bactrim/steroids NOT resumed. Atovaquone was started 03/18/22 after ID consultation. End date 04/01/22. ID then advises Bactrim 3 times per week indefinitely thereafter once atovaquone has completed. Per pulmonary - repeat chest CT 4-6 weeks. Appreciate pulmonary & ID consults. Repeat CXR 03/27 - improving infiltrates. Remains very short of breath in light of recurrent pneumonia. PE not suspected - he is on therapeutic lovenox. (2) Acute encephalopathy: Plan: Ongoing, but today was his best day regarding clarity of thinking and short-term recall. Continue risperdal 0.5mg HS; could consider increase to 1mg if needed. Most recent EKG with stable QTc. Recent MRI brain - no subacute or chronic stroke, no tumor. Mild maxillary sinusitis only. Etiology of confusion -- both Metabolic & Toxic. Metabolic - infection (pneumocystis, now COVID-19). Toxic - steroids, bactrim, etc. Can't rule out concussion from fall with head injury that occurred on 03/20/22. CT head negative 03/20/22. Cont thiamine supplementation. B1 level <6 (undetectable). (3) COVID-19: Plan: Tested + 03/22/22. Come out of isolation 04/01/22?? Clinically improving. SNF wanted a retest 03/27 - still positive (not surprising). He tested NEGATIVE at time of this admission thus I do believe he indeed has active infection. HOWEVER, suspect we are at tail end of COVID illness based on improvement last 2-3 days (improved mentation, improved fatigue, improved appetite, etc). Never had indication for Remdesivir or steroids. No hypoxia. Cont airborne isolation. CXR stable 03/27. (4) Acute renal failure: Plan: Peak Cr 2.21 on 03/21/22. Resolved. Was likely prerenal. (5) Fall: Plan: Occurred 03/20/22 x 2. One fall with head injury. CT head negative for acute findings on 03/20/22. Cont PT/OT. He had MRI brain since that fall and MRI did not show traumatic findings or ICH. Although he did not fall on 03/29 he certainly is at high risk given his severe deconditioning and ambulatory dysfunction - I asked staff to move him to 2south negative pressure room for closer observation. (6) Metabolic acidosis: Plan: Resolved. 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 LP in January 2022 negative for cryptococcus. Continue fluconazole 400 mg p.o. once daily x 12 months. Most recent EKG with stable QTc. (8) Fatigue: Plan: Likely multifactorial - ZAMZAM, pneumocystis pneumonia, COVID-19 infection, deconditioning, B1 deficiency, vitamin D deficiency, etc. Ongoing but improving. Recent TSH wnl. Thiamine supplementation in place. Recent ammonia wnl. CT head negative. MRI brain negative for acute/subacute CVA. B1 level undetectable - replacing. Cont PT/OT. Rehab post-d/c. (9) Acute respiratory failure with hypoxia: Plan: 2nd PCJ pneumonia. Resolved. No o2 requirement. Continue atovaquone. Continue supportive care for COVID. (10) B12 deficiency: Plan: B12 level was 162 pg/ml. Cyanocobalamin 1000 mcg IM x 5 doses, now on PO B12 1000mcg daily. (11) History of pulmonary embolism: Plan: Continue Lovenox 1 mg/kg SQ BID (12) (HFpEF) heart failure with preserved ejection fraction: Plan: Compensated. 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 Continue prophylactic acyclovir 400 mg p.o. twice daily. (14) Thrombocytopenia: Plan: Resolved Lowest count was 87 Most recent platelet count 145 likely was infection-related (15) Anemia: Plan: H/H stable/acceptable folate def likely contributing anemia of chronic disease, blood draws, etc all contributing (16) BPH loc w urin obs/LUTS: Plan: Continue home dutasteride voiding w/o difficulty (17) GERD (gastroesophageal reflux disease): Plan: Continue PPI (18) Osteoporosis 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: (19) Depression: Plan: Continue home Celexa Consider dose increase (20) Calculus of kidney: Plan: With a history of uric acid stones, follows with urology. Continue allopurinol. (21) Vitamin D deficiency: Plan: 25-OH vit D level = 9. ergocalciferol 50,000 units weekly. received dose yesterday. (22) Hypomagnesemia: Plan: repleted/resolved (23) Hypokalemia: Plan: repleted/resolved (24) Acute maxillary sinusitis: Plan: as seen on MRI brain. likely 2nd COVID-19 infection, but can't exclude bacterial superinfection. omnicef 300mg BID x 7 days. day #6 of such. (25) Folate deficiency: Plan: 1mg folate x 1 month (26) Thiamine deficiency: Plan: level undetectable (<6) cont thiamine 200mg po BID x 1 month certainly this can contribute to memory issues Plan: Dispo - [facility] hopeful he can d/c there in 2-3 days if mental status continues to remain stable and eating/drinking cont to improve Updated pt's extensively 03/24/22, 03/25/22, 03/27/22, 03/29/22 and tonight by phone. 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 2021 for year, and February for month mouth - MMM today head - no evidence of trauma; no bruises, no scrapes/abrasions, no scalp swelling neck - no JVD heart - RRR, s1 s2, no murmur lungs - mild dry rales bases b/l; no wheeze; good airation; no increased work of breathing abd - soft NT ND BS+ ext - right calf/leg is larger than left leg - chronic; pulses 2+ b/l psych - oriented to person, place (hospital), partially time - but remains confused musculo - mild right heel pain but no deformity or swelling; no mid-foot pain/swelling; toes wnl on right foot Results & Data Results & Data ([facility]) Vital Signs (Past 12 Hours) Vital Signs Temp Pulse Resp BP Pulse Ox 03/30/22 20:49 37 C 79 14 129/74 98 PG Care Time/CCT Total # of Minutes Spent Total Time Spent with Patient: Total time spent is greater than 50% in coordination of care (as documented) at patient's floor/unit and/or counseling patient: Coding Level of Care Code 68873 Subseq Hosp Care Lvl 2 Diagnoses PCP (pneumocystis jiroveci pneumonia) B59 Acute encephalopathy G93.40 COVID-19 U07.1 Acute renal failure N17.9 Fall W19.XXXA Metabolic acidosis E87.2 Cryptococcal pneumonitis B45.0 Fatigue R53.83 Acute respiratory failure with hypoxia J96.01 B12 deficiency E53.8 History of pulmonary embolism Z86.711 (HFpEF) heart failure with preserved ejection fraction I50.30 Light chain myeloma C90.00 Thrombocytopenia D69.6 Anemia D64.9 BPH loc w urin obs/LUTS N40.1 GERD (gastroesophageal reflux disease) K21.9 Osteoporosis 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 M81.8; C90.00 Depression F32.9 Calculus of kidney N20.0 Vitamin D deficiency E55.9 Hypomagnesemia E83.42 Hypokalemia E87.6 Acute maxillary sinusitis J01.00 Folate deficiency E53.8 Thiamine deficiency E51.9
[2022-03-31 08:37] LABS: BUN Creatinine Ratio 10.1 (10-20); Calcium 8.6 mg/dl (8.5-10.1); Creatinine Clr Calc Pharmacy 82.1 ml/min; Est GFR (African American) 101.1 ml/min; Est GFR (Non-African American) 87.2 ml/min; Potassium 3.3 mmol/L (3.5-5.1)
[2022-03-31] MEDS: METOPROLOL TARTRATE 25 MG TAB PO SCH ×2 (08:43→20:08)
[2022-03-31] MEDS: FOLIC ACID 1 MG in SYRINGE 9.8 ML IV SCH (08:43)
[2022-03-31] MEDS: DOCUSATE SODIUM/SENNA 50/8.6MG TAB PO SCH (08:43)
[2022-03-31] MEDS: PANTOprazole 40 MG TAB PO SCH (08:44)
[2022-03-31] MEDS: CYANOCOBALAMIN (B-12) 500 MCG TABLET PO SCH (08:44)
[2022-03-31] MEDS: FLUCONAZOLE 100 MG TAB PO SCH (08:44)
[2022-03-31] MEDS: MAGNESIUM OXIDE 400 MG TAB PO SCH (08:44)
[2022-03-31] MEDS: FAMOTIDINE 20 MG TAB PO SCH ×2 (08:45→20:07)
[2022-03-31] MEDS: CITALOPRAM 20 MG TAB PO SCH (08:45)
[2022-03-31] MEDS: THIAMINE HCL 100 MG TAB PO SCH ×2 (08:45→20:10)
[2022-03-31] MEDS: ACYCLOVIR 400 MG TAB PO SCH ×2 (08:46→20:04)
[2022-03-31] MEDS: CEFDINIR 300 MG CAP PO SCH ×2 (08:46→20:06)
[2022-03-31] MEDS: ATOVAQUONE 750 MG/5 ML UDC PO SCH ×2 (08:46→20:05)
[2022-03-31] MEDS: allopurinoL 100 MG TAB PO SCH ×2 (08:46→20:05)
[2022-03-31] MEDS: ENOXAPARIN 80 MG/0.8 ML SYR SQ SCH ×2 (08:47→20:07)
[2022-03-31] MEDS: DUTASTERIDE 0.5MG PO SCH (08:47)
[2022-03-31] MEDS: FLUTICASONE/VILANTEROL 200/25MCG 14 PUFFS/INHALER INH SCH (10:00)
--- NOTE | 2022-03-31 15:56 | Hospitalist Progress Note ---
Date of Service March 31, 2022 Assessment & Plan (1) PCP (pneumocystis jiroveci pneumonia): Plan: Stable, clinically improved, no hypoxia, resolving cough. Confirmed on bronchoscopy pathology 03/10/22. Thought to be the cause of his presentation at admission. Initial Rx with high-dose prednisone and high-dose Bactrim but developed severe encephalopathy. Bactrim/steroids stopped; mentation improved; Bactrim later restarted and again had altered mental status. Bactrim/steroids NOT resumed. Atovaquone was started 03/18/22 after ID consultation. End date 04/01/22. ID then advises Bactrim 3 times per week indefinitely thereafter once atovaquone has completed. He has tolerated Bactrim DS in the past so hoping he will at the lower dose required Per pulmonary - repeat chest CT 4-6 weeks. Appreciate pulmonary & ID consults. Repeat CXR 03/27 and again 03/31 - improving infiltrates. Remains somewhat short of breath PE not suspected - he is on therapeutic lovenox. (2) Acute encephalopathy: Plan: Ongoing, but overall MUCH improved Continue risperdal 0.5mg HS; could consider increase to 1mg if needed. Most recent EKG with stable QTc. Recent MRI brain - no subacute or chronic stroke, no tumor. Mild maxillary sinusitis only. Etiology of confusion -- both Metabolic & Toxic. Metabolic - infection (pneumocystis, now COVID-19). Toxic - steroids, bactrim, etc. Can't rule out concussion from fall with head injury that occurred on 03/20/22. CT head negative 03/20/22. Cont thiamine supplementation. B1 level <6 (undetectable). (3) COVID-19: Plan: Tested + 03/22/22. Come out of isolation 04/02/22? Clinically improving. [facility] wanted a retest 03/27 - still positive (not surprising). Ordered again for 04/01 He tested NEGATIVE at time of this admission thus I do believe he indeed has active infection. HOWEVER, suspect we are at tail end of COVID illness based on improvement last 2-3 days (improved mentation, improved fatigue, improved appetite, etc). Never had indication for Remdesivir or steroids. No hypoxia. Cont airborne isolation. CXR improving 03/31 (4) Hypokalemia: Plan: low again today replace with KCL 40 meq po x 1 follow BMP in AM (5) Acute renal failure: Plan: Peak Cr 2.21 on 03/21/22. Resolved. Was likely prerenal. (6) Fall: Plan: Occurred 03/20/22 x 2. One fall with head injury. CT head negative for acute findings on 03/20/22. Cont PT/OT. He had MRI brain since that fall and MRI did not show traumatic findings or ICH. Although he did not fall on 03/29 he certainly is at high risk given his severe deconditioning and ambulatory dysfunction - [facility] for closer observation, but not on tele. (7) Metabolic acidosis: Plan: Resolved. 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 LP in January 2022 negative for cryptococcus. Continue fluconazole 400 mg p.o. once daily x 12 months. Most recent EKG with stable QTc. (9) Fatigue: Plan: Likely multifactorial - ZAMZAM, pneumocystis pneumonia, COVID-19 infection, deconditioning, B1 deficiency, vitamin D deficiency, etc. Ongoing but improving. Recent TSH wnl. Thiamine supplementation in place. Recent ammonia wnl. CT head negative. MRI brain negative for acute/subacute CVA. B1 level undetectable - replacing. Cont PT/OT. Rehab post-d/c. (10) Acute respiratory failure with hypoxia: Plan: 2nd PCJ pneumonia. Resolved. No o2 requirement. Continue atovaquone. Continue supportive care for COVID. (11) B12 deficiency: Plan: B12 level was 162 pg/ml. Cyanocobalamin 1000 mcg IM x 5 doses, now on PO B12 1000mcg daily. (12) History of pulmonary embolism: Plan: Continue Lovenox 1 mg/kg SQ BID (13) (HFpEF) heart failure with preserved ejection fraction: Plan: Compensated. 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 Continue prophylactic acyclovir 400 mg p.o. twice daily. (15) Thrombocytopenia: Plan: Resolved Lowest count was 87 Most recent platelet count 145 likely was infection-related (16) Anemia: Plan: H/H stable/acceptable folate def likely contributing anemia of chronic disease, blood draws, etc all contributing (17) BPH loc w urin obs/LUTS: Plan: Continue home dutasteride voiding w/o difficulty (18) GERD (gastroesophageal reflux disease): Plan: Continue PPI (19) Osteoporosis 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: (20) Depression: Plan: Continue home Celexa Consider dose increase (21) Calculus of kidney: Plan: With a history of uric acid stones, follows with urology. Continue allopurinol. (22) Vitamin D deficiency: Plan: 25-OH vit D level = 9. ergocalciferol 50,000 units weekly. received dose 03/29 (23) Acute maxillary sinusitis: Plan: as seen on MRI brain. likely 2nd COVID-19 infection, but can't exclude bacterial superinfection. omnicef 300mg BID x 7 days-last dose 04/01. (24) Folate deficiency: Plan: 1mg folate x 1 month-change from IV to po (25) Thiamine deficiency: Plan: level undetectable (<6) cont thiamine 200mg po BID x 1 month certainly this can contribute to memory issues Plan: Dispo - [facility] hopeful he can d/c there as soon as COVID test negative-check again 04/01 Admission and Anticipated Discharge Date Admission Date: March 01, 2022 Subjective Pt reports he slept well. Still has a slight cough, denies hemoptysis. Is moving bowels. When asked if he has been eating, he states "I've lost a lot of weight." When I told him he had COVID, he started naming all the time he got the covid vaccine and booster, but didn't understand that he actually had an active case of covid. Not on tele Review of Systems Review of Systems: All systems reviewed & are unremarkable except as noted in HPI & below Physical Exam Constitutional: WD/WN, vitals as above Eyes: + anicteric sclerae ENMT: external ear and nose normal, oropharynx normal (Except dry lips) Neck: trachea midline, no thyromegaly Respiratory: normal respiratory effort and + cough Auscultation: lungs clear to auscultation bilaterally Cardiovascular: RRR, no murmur, no edema Chest (Breasts): Chest: normal inspection of chest Gastrointestinal (Abdomen): normal bowel sounds, soft, nontender, no hepatosplenomegaly Musculoskeletal: Extremities: extremities normal to inspection; no cyanosis and no clubbing Skin: no rashes, warm and dry Neurologic: moves all extremities and awake; no focal motor deficits Psychiatric: Orientation: alert, oriented to person, oriented to place and cooperative Lymphatic: no lymphedema Results & Data Results & Data ([facility]) Vital Signs (Past 12 Hours) Vital Signs Temp Pulse Pulse Resp BP Pulse Ox 03/31/22 15:13 36.5 C 68 18 149/88 H 97 03/31/22 08:38 36.5 C 86 18 127/82 91 Laboratory Results 03/31/22 03/31/22 Range/Units 15:08 07:46 Sodium 140 (136-145) mmol/L Potassium 3.3 L (3.5-5.1) mmol/L Chloride 109 H (98-107) mmol/L Carbon Dioxide 23 (21-32) mmol/L Anion Gap 8 (3-11) BUN 8 (6-23) mg/dl Creatinine 0.79 (0.6-1.4) mg/dl Est Cr Clr Drug Dosing 82.1 ml/min Est GFR ( Amer) 101.1 ml/min Est GFR (Non-Af Amer) 87.2 ml/min BUN/Creatinine Ratio 10.1 (10-20) Glucose 96 (70-99(Fasting)) mg/dl Calcium 8.6 (8.5-10.1) mg/dl SARS-CoV-2, RNA, NAAT POSITIVE A* (NEGATIVE) PG Care Time/CCT Total # of Minutes Spent Total Time Spent with Patient: Total time spent is greater than 50% in coordination of care (as documented) at patient's floor/unit and/or counseling patient: Coding Level of Care Code 28468 Subseq Hosp Care Lvl 2 Diagnoses PCP (pneumocystis jiroveci pneumonia) B59 Acute encephalopathy G93.40 COVID-19 U07.1 Acute renal failure N17.9 Fall W19.XXXA Metabolic acidosis E87.2 Cryptococcal pneumonitis B45.0 Fatigue R53.83 Acute respiratory failure with hypoxia J96.01 B12 deficiency E53.8 History of pulmonary embolism Z86.711 (HFpEF) heart failure with preserved ejection fraction I50.30 Light chain myeloma C90.00 Thrombocytopenia D69.6 Anemia D64.9 BPH loc w urin obs/LUTS N40.1 GERD (gastroesophageal reflux disease) K21.9 Osteoporosis 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 M81.8; C90.00 Depression F32.9 Calculus of kidney N20.0 Vitamin D deficiency E55.9 Hypokalemia E87.6 Acute maxillary sinusitis J01.00 Folate deficiency E53.8 Thiamine deficiency E51.9
[2022-03-31] MEDS ORDERED: POTASSIUM CHLORIDE CRTAB 20 MEQ TABCR PO STA (15:58)
[2022-03-31] MEDS ORDERED: POTASSIUM CHLORIDE PWD 20 MEQ PACK PO ONE (16:38)
[2022-03-31] MEDS: MELATONIN 3 MG TAB PO SCH (20:08)
[2022-03-31] MEDS: risperiDONE ODT 0.5 MG SOLTAB PO SCH (20:09)
[2022-04-01 07:35] LABS: Basophils # (auto) 0.01 K/uL (0-0.2); Basophils % (auto) 0.2 %; Eosinophils # (auto) 0.05 K/uL (0-0.5); Eosinophils % (auto) 0.9 %; Hematocrit (blood only) 31.8 % (42-52); Hemoglobin 10.2 g/dL (14.0-18.0); Immature Granulocytes # (auto) 0.08 K/uL (0.00-0.02); Immature Granulocytes % (auto) 1.4 %; Lymphocytes # (auto) 0.88 K/uL (1.2-3.4); Lymphocytes % (auto) 15.4 %; Mean Corpuscular Hemoglobin 32.9 pg (25-34); Mean Corpuscular Hgb Conc 32.1 g/dL (32-36); Mean Corpuscular Volume 102.6 fL (80-100); Mean Platelet Volume 10.8 fL (7.4-10.4); Monocytes # (auto) 0.64 K/uL (0.11-0.59); Monocytes % (auto) 11.2 %; Neutrophils # (auto) 4.04 K/uL (1.4-6.5); Neutrophils % (auto) 70.9 %; Platelet Count 141 K/uL (130-400); RDW Coefficient of Variation 19.2 % (11.5-14.5); RDW Standard Deviation 71.3 fL (36.4-46.3)
[2022-04-01 07:59] LABS: BUN Creatinine Ratio 7.8 (10-20); Calcium 8.5 mg/dl (8.5-10.1); Creatinine Clr Calc Pharmacy 84.3 ml/min; Est GFR (African American) 102.2 ml/min; Est GFR (Non-African American) 88.1 ml/min; Magnesium 1.7 mg/dl (1.7-2.4); Potassium 3.5 mmol/L (3.5-5.1)
[2022-04-01] MEDS: ATOVAQUONE 750 MG/5 ML UDC PO SCH ×2 (08:10→21:13)
[2022-04-01] MEDS: METOPROLOL TARTRATE 25 MG TAB PO SCH ×2 (08:10→21:14)
[2022-04-01] MEDS: CYANOCOBALAMIN (B-12) 500 MCG TABLET PO SCH (08:10)
[2022-04-01] MEDS: THIAMINE HCL 100 MG TAB PO SCH ×2 (08:10→21:13)
[2022-04-01] MEDS: ENOXAPARIN 80 MG/0.8 ML SYR SQ SCH ×2 (08:10→21:14)
[2022-04-01] MEDS: DOCUSATE SODIUM/SENNA 50/8.6MG TAB PO SCH (08:11)
[2022-04-01] MEDS: FOLIC ACID 1 MG TAB PO SCH (08:11)
[2022-04-01] MEDS: CITALOPRAM 20 MG TAB PO SCH (08:11)
[2022-04-01] MEDS: DUTASTERIDE 0.5MG PO SCH (08:12)
[2022-04-01] MEDS: MAGNESIUM OXIDE 400 MG TAB PO SCH (08:12)
[2022-04-01] MEDS: FAMOTIDINE 20 MG TAB PO SCH ×2 (08:13→21:12)
[2022-04-01] MEDS: PANTOprazole 40 MG TAB PO SCH (08:13)
[2022-04-01] MEDS: FLUTICASONE/VILANTEROL 200/25MCG 14 PUFFS/INHALER INH SCH (08:13)
[2022-04-01] MEDS: ACYCLOVIR 400 MG TAB PO SCH ×2 (09:40→21:12)
[2022-04-01] MEDS: FLUCONAZOLE 100 MG TAB PO SCH (09:43)
[2022-04-01] MEDS: allopurinoL 100 MG TAB PO SCH ×2 (09:43→21:13)
--- NOTE | 2022-04-01 18:22 | Hospitalist Progress Note ---
Date of Service April 01, 2022 Assessment & Plan (1) PCP (pneumocystis jiroveci pneumonia): Plan: Stable, clinically improved, no hypoxia, resolving cough. Confirmed on bronchoscopy pathology 03/10/22. Thought to be the cause of his presentation at admission. Initial Rx with high-dose prednisone and high-dose Bactrim but developed severe encephalopathy. Bactrim/steroids stopped; mentation improved; Bactrim later restarted and again had altered mental status. Bactrim/steroids NOT resumed. Atovaquone was started 03/18/22 after ID consultation. End date 04/01/22. ID then advises Bactrim 3 times per week indefinitely thereafter once atovaquone has completed. He has tolerated Bactrim DS in the past so hoping he will at the lower dose required. We will start this next week on Wednesday schedule Per pulmonary - repeat chest CT 4-6 weeks-this will be around the middle of April Appreciate pulmonary & ID consults. Repeat CXR 03/27 and again 03/31 - improving infiltrates. (2) Acute encephalopathy: Plan: Ongoing, but overall MUCH improved Continue risperdal 0.5mg HS; could consider increase to 1mg if needed. Most recent EKG with stable QTc. Recent MRI brain - no subacute or chronic stroke, no tumor. Mild maxillary sinusitis only. Etiology of confusion -- both Metabolic & Toxic. Metabolic - infection (pneumocystis, now COVID-19). Toxic - steroids, bactrim, etc. Can't rule out concussion from fall with head injury that occurred on 03/20/22. CT head negative 03/20/22. Cont thiamine supplementation. B1 level <6 (undetectable). (3) COVID-19: Plan: Tested + 03/22/22. Come out of isolation 04/02/22? Clinically improving. [facility] wanted a retest 03/27 - still positive (not surprising). Ordered again for 03/31 and remains positive He tested NEGATIVE at time of this admission thus I do believe he indeed has active infection which is now resolved. He is now with improved mentation, improved fatigue, improved appetite, etc Never had indication for Remdesivir or steroids. No hypoxia. Cont airborne isolation but hopefully can come off of it on 04/02 CXR improving 03/31 (4) Hypokalemia: Plan: Resolved after replacement (5) Acute renal failure: Plan: Peak Cr 2.21 on 03/21/22. Resolved. Was likely prerenal. Continue to hold Lasix (6) Fall: Plan: Occurred 03/20/22 x 2. One fall with head injury. CT head negative for acute findings on 03/20/22. Cont PT/OT. He had MRI brain since that fall and MRI did not show traumatic findings or ICH. Although he did not fall on 03/29 he certainly is at high risk given his severe deconditioning and ambulatory dysfunction - asked staff to move him to [facility] negative pressure room for closer observation, but not on tele. 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 LP in January 2022 negative for cryptococcus. Continue fluconazole 400 mg p.o. once daily x 12 months. Most recent EKG with stable QTc. (8) Fatigue: Plan: Likely multifactorial - ZAMZAM, pneumocystis pneumonia, COVID-19 infection, deconditioning, B1 deficiency, vitamin D deficiency, etc. Ongoing but improving. Recent TSH wnl. Thiamine supplementation in place. Recent ammonia wnl. CT head negative. MRI brain negative for acute/subacute CVA. B1 level undetectable - replacing. Cont PT/OT. Rehab post-d/c. (9) Acute respiratory failure with hypoxia: Plan: 2nd PCJ pneumonia. Resolved. No o2 requirement. Continue atovaquone. Continue supportive care for COVID. (10) B12 deficiency: Plan: B12 level was 162 pg/ml. Cyanocobalamin 1000 mcg IM x 5 doses, now on PO B12 1000mcg daily. (11) History of pulmonary embolism: Plan: Continue Lovenox 1 mg/kg SQ BID (12) (HFpEF) heart failure with preserved ejection fraction: Plan: Compensated. 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 Continue prophylactic acyclovir 400 mg p.o. twice daily. Currently off all therapy due to cryptococcal pneumonia as well as PC J pneumonia Follow-up with oncology after discharge (14) Thrombocytopenia: Plan: Resolved Lowest count was 87 Most recent platelet count 141 likely was infection-related (15) Anemia: Plan: H/H stable/acceptable folate and B12 def likely contributing anemia of chronic disease, blood draws, etc all contributing (16) BPH loc w urin obs/LUTS: Plan: Continue home dutasteride voiding w/o difficulty (17) GERD (gastroesophageal reflux disease): Plan: Continue PPI (18) Osteoporosis 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: (19) Depression: Plan: Continue home Celexa (20) Calculus of kidney: Plan: With a history of uric acid stones, follows with urology. Continue allopurinol. (21) Vitamin D deficiency: Plan: 25-OH vit D level = 9. ergocalciferol 50,000 units weekly. received dose 03/29 (22) Acute maxillary sinusitis: Plan: as seen on MRI brain. likely 2nd COVID-19 infection, but can't exclude bacterial superinfection. Now completed 7-day course of omnicef 300mg BID (23) Folate deficiency: Plan: Continue folic acid 1 mg p.o. daily (24) Thiamine deficiency: Plan: level undetectable (<6) cont thiamine 200mg po BID x 1 month and then decrease to 100 mg p.o. once daily after that certainly this can contribute to memory issues Plan: Dispo - [facility] versus other SNF if can take sooner Medically stable for discharge Admission and Anticipated Discharge Date Admission Date: March 01, 2022 Subjective Patient pleasantly confused but more oriented than I have ever seen him before. He knew the year and that he was in the "[facility] He did ask if the doctor was coming to see him for the gout in his foot and thought that his should be coming soon to take him to his appointment. He denies cough or shortness of breath. Review of Systems Review of Systems: All systems reviewed & are unremarkable except as noted in HPI & below Physical Exam Constitutional: WD/WN, vitals as above Eyes: + anicteric sclerae ENMT: external ear and nose normal, oropharynx normal (Except dry lips) Neck: trachea midline, no thyromegaly Respiratory: normal respiratory effort; no cough Auscultation: lungs clear to auscultation bilaterally Cardiovascular: RRR, no murmur, no edema Chest (Breasts): Chest: normal inspection of chest Gastrointestinal (Abdomen): normal bowel sounds, soft, nontender, no hepatosplenomegaly Musculoskeletal: Extremities: extremities normal to inspection; no cyanosis and no clubbing No erythema of the right foot, mild tenderness palpation over the right heel Skin: no rashes, warm and dry Neurologic: moves all extremities and awake; no focal motor deficits Psychiatric: Orientation: alert, oriented to person, oriented to place and cooperative Lymphatic: no lymphedema Results & Data Results & Data ([facility]) Vital Signs (Past 12 Hours) Vital Signs Temp Pulse Resp BP Pulse Ox 04/01/22 15:22 36.8 C 65 18 148/79 H 98 04/01/22 12:02 36.4 C L 75 20 136/79 100 04/01/22 07:59 37.2 C 74 20 145/77 H 97 Laboratory Results 04/01/22 04/01/22 Range/Units 07:02 07:02 WBC 5.70 (4.8-10.8) K/uL RBC 3.10 L (4.7-6.1) M/uL Hgb 10.2 L (14.0-18.0) g/dL Hct 31.8 L (42-52) % MCV 102.6 H (80-100) fL MCH 32.9 (25-34) pg MCHC 32.1 (32-36) g/dL RDW Std Deviation 71.3 H (36.4-46.3) fL RDW Coeff of Eyal 19.2 H (11.5-14.5) % Plt Count 141 (130-400) K/uL MPV 10.8 H (7.4-10.4) fL Immature Gran % (Auto) 1.4 % Neut % (Auto) 70.9 % Lymph % (Auto) 15.4 % Pitt % (Auto) 11.2 % Eos % (Auto) 0.9 % Baso % (Auto) 0.2 % Neut # (Auto) 4.04 (1.4-6.5) K/uL Lymph # (Auto) 0.88 L (1.2-3.4) K/uL Pitt # (Auto) 0.64 H (0.11-0.59) K/uL Eos # (Auto) 0.05 (0-0.5) K/uL Baso # (Auto) 0.01 (0-0.2) K/uL Immature Gran # (Auto) 0.08 H (0.00-0.02) K/uL Sodium 142 (136-145) mmol/L Potassium 3.5 (3.5-5.1) mmol/L Chloride 111 H (98-107) mmol/L Carbon Dioxide 26 (21-32) mmol/L Anion Gap 5 (3-11) BUN 6 (6-23) mg/dl Creatinine 0.77 (0.6-1.4) mg/dl Est Cr Clr Drug Dosing 84.3 ml/min Est GFR ( Amer) 102.2 ml/min Est GFR (Non-Af Amer) 88.1 ml/min BUN/Creatinine Ratio 7.8 L (10-20) Glucose 91 (70-99(Fasting)) mg/dl Calcium 8.5 (8.5-10.1) mg/dl Magnesium 1.7 (1.7-2.4) mg/dl PG Care Time/CCT Total # of Minutes Spent Total Time Spent with Patient: Total time spent is greater than 50% in coordination of care (as documented) at patient's floor/unit and/or counseling patient: Coding Level of Care Code 52691 Subseq Hosp Care Lvl 1 Diagnoses PCP (pneumocystis jiroveci pneumonia) B59 Acute encephalopathy G93.40 COVID-19 U07.1 Hypokalemia E87.6 Acute renal failure N17.9 Fall W19.XXXA Cryptococcal pneumonitis B45.0 Fatigue R53.83 Acute respiratory failure with hypoxia J96.01 B12 deficiency E53.8 History of pulmonary embolism Z86.711 (HFpEF) heart failure with preserved ejection fraction I50.30 Light chain myeloma C90.00 Thrombocytopenia D69.6 Anemia D64.9 BPH loc w urin obs/LUTS N40.1 GERD (gastroesophageal reflux disease) K21.9 Osteoporosis 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 M81.8; C90.00 Depression F32.9 Calculus of kidney N20.0 Vitamin D deficiency E55.9 Acute maxillary sinusitis J01.00 Folate deficiency E53.8 Thiamine deficiency E51.9
[2022-04-01] MEDS: risperiDONE ODT 0.5 MG SOLTAB PO SCH (21:13)
[2022-04-01] MEDS: MELATONIN 3 MG TAB PO SCH (21:16)
[2022-04-02] MEDS ORDERED: risperiDONE 0.5 MG TABLET PO STA (05:01)
[2022-04-02] MEDS: allopurinoL 100 MG TAB PO SCH ×2 (08:00→21:37)
[2022-04-02] MEDS: MAGNESIUM OXIDE 400 MG TAB PO SCH (08:01)
[2022-04-02] MEDS: FAMOTIDINE 20 MG TAB PO SCH ×2 (08:01→21:36)
[2022-04-02] MEDS: FLUCONAZOLE 100 MG TAB PO SCH (08:01)
[2022-04-02] MEDS: FOLIC ACID 1 MG TAB PO SCH (08:01)
[2022-04-02] MEDS: ACYCLOVIR 400 MG TAB PO SCH ×2 (08:01→21:35)
[2022-04-02] MEDS: ENOXAPARIN 80 MG/0.8 ML SYR SQ SCH ×2 (08:01→21:33)
[2022-04-02] MEDS: CYANOCOBALAMIN (B-12) 500 MCG TABLET PO SCH (08:01)
[2022-04-02] MEDS: PANTOprazole 40 MG TAB PO SCH (08:01)
[2022-04-02] MEDS: CITALOPRAM 20 MG TAB PO SCH (08:01)
[2022-04-02] MEDS: THIAMINE HCL 100 MG TAB PO SCH ×2 (08:01→21:36)
[2022-04-02] MEDS: METOPROLOL TARTRATE 25 MG TAB PO SCH ×2 (08:01→21:36)
[2022-04-02] MEDS: DOCUSATE SODIUM/SENNA 50/8.6MG TAB PO SCH (08:02)
[2022-04-02] MEDS: DUTASTERIDE 0.5MG PO SCH (08:02)
[2022-04-02] MEDS: FLUTICASONE/VILANTEROL 200/25MCG 14 PUFFS/INHALER INH SCH (08:02)
--- NOTE | 2022-04-02 14:15 | Hospitalist Progress Note ---
Date of Service April 02, 2022 Assessment & Plan (1) PCP (pneumocystis jiroveci pneumonia): Plan: Stable, clinically improved, no hypoxia, resolving cough. Confirmed on bronchoscopy pathology 03/10/22. Thought to be the cause of his presentation at admission. Initial Rx with high-dose prednisone and high-dose Bactrim but developed severe encephalopathy. Bactrim/steroids stopped; mentation improved; Bactrim later restarted and again had altered mental status---> however, this AMS may have been in retrospect due to development of COVID-19 Bactrim/steroids NOT resumed. Atovaquone was started 03/18/22 after ID consultation. End date 04/01/22. ID then advises Bactrim 3 times per week indefinitely thereafter once atovaquone has completed. He has tolerated Bactrim DS in the past so hoping he will at the lower dose required. We will start this now on Wednesday schedule and monitor closely for worsening mentation Per pulmonary - repeat chest CT 4-6 weeks-this will be around the middle of April Appreciate pulmonary & ID consults. Repeat CXR 03/27 and again 03/31 - improving infiltrates. (2) Acute encephalopathy: Plan: Ongoing, but overall MUCH improved Continue risperdal 0.5mg HS; could consider increase to 1mg if needed. Most recent EKG with stable QTc. Recent MRI brain - no subacute or chronic stroke, no tumor. Mild maxillary sinusitis only. Etiology of confusion -- both Metabolic & Toxic. Metabolic - infection (pneumocystis, COVID-19). Toxic - steroids, bactrim, etc. Can't rule out concussion from fall with head injury that occurred on 03/20/22. CT head negative 03/20/22. Cont thiamine supplementation. B1 level <6 (undetectable). (3) COVID-19: Plan: Tested + 03/22/22 on routine COVD testing for SNF discharge although he was developing worsening mentation at that time Can now come out of isolation 04/02/22 Never had indication for Remdesivir or steroids. No hypoxia. CXR improving 03/31 Tested negative on 04/02 as per requirement of SNF (4) Acute renal failure: Plan: Peak Cr 2.21 on 03/21/22. Resolved. Was likely prerenal. Continue to hold Lasix from home Watch renal fxn with restarting low dose Bactrim (5) Fall: Plan: Occurred 03/20/22 x 2. One fall with head injury. CT head negative for acute findings on 03/20/22. Cont PT/OT. MRI brain since that fall no traumatic findings (6) Cryptococcal pneumonitis: Plan: Bronchoscopy in January 2022 showed cryptococcus. LP in January 2022 negative for cryptococcus. Continue fluconazole 400 mg p.o. once daily x 12 months. Most recent EKG with stable QTc. (7) Fatigue: Plan: Likely multifactorial - ZAMZAM, pneumocystis pneumonia, COVID-19 infection, deconditioning, B1 deficiency, vitamin D deficiency, etc. Ongoing but improving. Recent TSH wnl. Thiamine supplementation in place. Recent ammonia wnl. CT head negative. MRI brain negative for acute/subacute CVA. B1 level undetectable - replacing. Cont PT/OT. Rehab post-d/c. (8) Acute respiratory failure with hypoxia: Plan: 2nd PCJ pneumonia. Resolved. (9) B12 deficiency: Plan: B12 level was 162 pg/ml. Cyanocobalamin 1000 mcg IM x 5 doses, now on PO B12 1000mcg daily. (10) History of pulmonary embolism: Plan: Continue Lovenox 1 mg/kg SQ BID Previously on coumadin but switched to Lovenox due to interaction with fluconazole (11) (HFpEF) heart failure with preserved ejection fraction: Plan: Compensated. 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 Continue prophylactic acyclovir 400 mg p.o. twice daily. Currently off all therapy due to cryptococcal pneumonia as well as PCJ pneumonia Follow-up with oncology after discharge (13) Thrombocytopenia: Plan: Resolved Lowest count was 87 Most recent platelet count 141 likely was infection-related (14) Anemia: Plan: H/H stable/acceptable folate and B12 def likely contributing anemia of chronic disease, blood draws, etc all contributing (15) BPH loc w urin obs/LUTS: Plan: Continue home dutasteride voiding w/o difficulty (16) GERD (gastroesophageal reflux disease): Plan: Continue PPI (17) Osteoporosis 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: (18) Depression: Plan: Continue home Celexa (19) Calculus of kidney: Plan: With a history of uric acid stones, follows with urology. Continue allopurinol. (20) Vitamin D deficiency: Plan: 25-OH vit D level = 9. ergocalciferol 50,000 units weekly. (21) Acute maxillary sinusitis: Plan: as seen on MRI brain. Now completed 7-day course of omnicef 300mg BID (22) Folate deficiency: Plan: Continue folic acid 1 mg p.o. daily (23) Thiamine deficiency: Plan: level undetectable (<6) cont thiamine 200mg po BID x 1 month and then decrease to 100 mg p.o. once daily after that certainly this can contribute to memory issues Plan: Dispo - [facility] SNF versus other SNF if can take sooner-awaiting insurance auth now that COVID negative and out of isolation from COVID on 04/02 Medically stable for discharge Admission and Anticipated Discharge Date Admission Date: March 01, 2022 Subjective Pt feels well. Says he is tired in his muscles as he has been out of bed to a chair for the last hour. Has some pain in right heel intermittently. Otherwise says no cough, no SOB. Ate his whole lunch. No SOB. Review of Systems Review of Systems: All systems reviewed & are unremarkable except as noted in HPI & below Physical Exam Constitutional: WD/WN, vitals as above Eyes: + anicteric sclerae ENMT: external ear and nose normal, oropharynx normal (Except dry lips) Neck: trachea midline, no thyromegaly Respiratory: normal respiratory effort; no cough Auscultation: lungs clear to auscultation bilaterally Cardiovascular: RRR, no murmur, no edema Chest (Breasts): Chest: normal inspection of chest Gastrointestinal (Abdomen): normal bowel sounds, soft, nontender, no hepatosplenomegaly Musculoskeletal: Extremities: extremities normal to inspection; no cyanosis and no clubbing Skin: no rashes, warm and dry Neurologic: moves all extremities and awake; no focal motor deficits Psychiatric: Orientation: alert, oriented to person, oriented to place and cooperative Lymphatic: no lymphedema Results & Data Results & Data ([facility]) Vital Signs (Past 12 Hours) Vital Signs Temp Pulse Resp BP Pulse Ox 04/02/22 03:40 37.0 C 69 14 163/75 H 92 Laboratory Results 04/02/22 Range/Units 09:30 SARS-CoV-2, RNA, NAAT NEGATIVE (NEGATIVE) PG Care Time/CCT Total # of Minutes Spent Total Time Spent with Patient: Total time spent is greater than 50% in coordination of care (as documented) at patient's floor/unit and/or counseling patient: Coding Level of Care Code 13047 Subseq Hosp Care Lvl 2 Diagnoses PCP (pneumocystis jiroveci pneumonia) B59 Acute encephalopathy G93.40 COVID-19 U07.1 Acute renal failure N17.9 Fall W19.XXXA Cryptococcal pneumonitis B45.0 Fatigue R53.83 Acute respiratory failure with hypoxia J96.01 B12 deficiency E53.8 History of pulmonary embolism Z86.711 (HFpEF) heart failure with preserved ejection fraction I50.30 Light chain myeloma C90.00 Thrombocytopenia D69.6 Anemia D64.9 BPH loc w urin obs/LUTS N40.1 GERD (gastroesophageal reflux disease) K21.9 Osteoporosis 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 M81.8; C90.00 Depression F32.9 Calculus of kidney N20.0 Vitamin D deficiency E55.9 Acute maxillary sinusitis J01.00 Folate deficiency E53.8 Thiamine deficiency E51.9
[2022-04-02] MEDS: MELATONIN 3 MG TAB PO SCH (21:34)
[2022-04-02] MEDS: risperiDONE ODT 0.5 MG SOLTAB PO SCH (21:35)
[2022-04-03] MEDS: ENOXAPARIN 80 MG/0.8 ML SYR SQ SCH (09:00)
[2022-04-03] MEDS ORDERED: SULFAMETHOXAZOLE/TRIMETHOPRIM DS 800/160MG TAB PO SCH (09:00)
[2022-04-03] MEDS: CITALOPRAM 20 MG TAB PO SCH (09:01)
[2022-04-03] MEDS: PANTOprazole 40 MG TAB PO SCH (09:02)
[2022-04-03] MEDS: FLUCONAZOLE 100 MG TAB PO SCH (09:02)
[2022-04-03] MEDS: FAMOTIDINE 20 MG TAB PO SCH (09:02)
[2022-04-03] MEDS: allopurinoL 100 MG TAB PO SCH (09:02)
[2022-04-03] MEDS: ACYCLOVIR 400 MG TAB PO SCH (09:03)
[2022-04-03] MEDS: MAGNESIUM OXIDE 400 MG TAB PO SCH (09:03)
[2022-04-03] MEDS: METOPROLOL TARTRATE 25 MG TAB PO SCH (09:03)
[2022-04-03] MEDS: FOLIC ACID 1 MG TAB PO SCH (09:03)
[2022-04-03] MEDS: THIAMINE HCL 100 MG TAB PO SCH (09:03)
[2022-04-03] MEDS: CYANOCOBALAMIN (B-12) 500 MCG TABLET PO SCH (09:03)
[2022-04-03] MEDS: FLUTICASONE/VILANTEROL 200/25MCG 14 PUFFS/INHALER INH SCH (09:05)
[2022-04-03] MEDS: DUTASTERIDE 0.5MG PO SCH (09:07)
[2022-04-03] MEDS: DOCUSATE SODIUM/SENNA 50/8.6MG TAB PO SCH (11:30)
--- NOTE | 2022-04-06 15:23 | Discharge Summary ---
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 He has been on fluconazole now for over a month for cryptococcal pneumonia and initially after starting treatment did notice some improvement. But over the last 2 weeks or so, he has been progressively short of breath and then within the last week developed sinus congestion. He has been blowing yellow mucus out of his nose as well as coughing up yellow sputum. There is no hemoptysis. No fevers or chills. No headaches or facial pain. No chest pains or leg swelling. His finally convinced him to come to the hospital today. When EMS arrived at his home, he was found to have a pulse ox in the 80s and he is not typically on home O2. He has had a decreased appetite the last couple of weeks and did have 1 episode of nausea and vomiting after lunch today. He reports he is also had 8 episodes of diarrhea in the last 24 hours that is nonbloody. No significant abdominal pains. In the ER, he was found to have a mild tachycardia but normal blood pressures, and was afebrile. Pulse ox is not recorded as being low but he was placed on 4 L nasal cannula in the ER to keep pulse ox in the low 90s. On lab work-up, he was found to have a mild leukocytosis of 11 with neutrophilia, mild chronic anemia, mild thrombocytopenia, mild hypokalemia. Troponin was negative. proBNP was negative. He had a mild anion gap metabolic acidosis but no lactate was drawn. COVID/influenza a and B/RSV were negative. His chest x-ray showed patchy diffuse pneumonia and a CT angiogram of the chest was negative for PE but showed some improvement in the previous right upper lobe consolidation but progression in the bilateral diffuse groundglass opacities. In the ER, he was given IV Solu-Medrol, IV Zosyn, and fluids. He will be admitted for pneumonia in the setting of immune compromise, and acute respiratory failure hypoxia. Principal Diagnosis PCP Discharge Exam General: calm, resting comfortably. HEENT: head atraumatic, normocephalic, pupils equal/reactive, slightly dry mm, trachea midline Resp: no longer tachypnic CV: RRR, no m/r/g, no calf edema GI:+BS, soft/nontender : no munoz MSK/Neuro: CALM, moving all extremities, no focal motor deficit, but unable to participate in exam, no facial droop Psych: alert this morning but not oriented to place/time Discharge Data Allergies Allergy/AdvReac Type Severity Reaction Status Date / Time dexamethasone AdvReac Severe Hallucinati Verified 03/01/22 16:21 on prednisone AdvReac Severe hallucinati Verified 03/06/22 08:00 ons meclizine AdvReac Intermediate HALLUCINATI Verified 03/01/22 16:21 ON hydrocodone AdvReac Mild AGITATION Verified 03/01/22 16:21 levofloxacin [From Levaquin] AdvReac Mild muscle Verified 03/01/22 16:21 weakness lisinopril AdvReac Mild Dizziness Verified 03/01/22 16:21 Consultations 03/01/22 19:00 Consult Health Information Management Routine 03/01/22 19:55 ED Decision to Admit Stat 03/02/22 00:27 Consult Pulmonology Routine 03/13/22 13:53 Consult Neurology Routine 03/22/22 14:46 Consult Nephrology Routine Procedures Performed Operation Date: 03/04/22 10:30 <No data on this case meets the specified criteria> Ordered Studies 03/01/22 16:41 CT angio chest PE protocol Stat 03/04/22 14:18 CT head/brain wo con Stat 03/20/22 11:10 CT head/brain wo con Stat 03/24/22 17:28 MR brain wo con Routine Hospital Course (1) PCP (pneumocystis jiroveci pneumonia): Stable, clinically improved, no hypoxia, resolving cough. Confirmed on bronchoscopy pathology 03/10/22. Thought to be the cause of his presentation at admission. Initial Rx with high-dose prednisone and high-dose Bactrim but developed severe encephalopathy. Bactrim/steroids stopped; mentation improved; Bactrim later restarted and again had altered mental status---> however, this AMS may have been in retrospect due to development of COVID-19 Bactrim/steroids NOT resumed. Atovaquone was started 03/18/22 after ID consultation. End date 04/01/22. ID then advises Bactrim 3 times per week indefinitely thereafter once atovaquone has completed. He has tolerated Bactrim DS in the past so hoping he will at the lower dose required. We will start this now on Wednesday schedule and monitor closely for worsening mentation Per pulmonary - repeat chest CT 4-6 weeks-this will be around the middle of April Appreciate pulmonary & ID consults. Repeat CXR 03/27 and again 03/31 - improving infiltrates. Patient will be discharged on bactrim MWF. (2) Acute encephalopathy: Ongoing, but overall MUCH improved Continue risperdal 0.5mg HS; could consider increase to 1mg if needed. Most recent EKG with stable QTc. Recent MRI brain - no subacute or chronic stroke, no tumor. Mild maxillary sinusitis only. Etiology of confusion -- both Metabolic & Toxic. Metabolic - infection (pneumocystis, COVID-19). Toxic - steroids, bactrim, etc. Can't rule out concussion from fall with head injury that occurred on 03/20/22. CT head negative 03/20/22. Cont thiamine supplementation. B1 level <6 (undetectable). (3) COVID-19: Tested + 03/22/22 on routine COVD testing for SNF discharge although he was developing worsening mentation at that time Can now come out of isolation 04/02/22 Never had indication for Remdesivir or steroids. No hypoxia. CXR improving 03/31 Tested negative on 04/02 as per requirement of SNF (4) Acute renal failure: Peak Cr 2.21 on 03/21/22. Resolved. Was likely prerenal. Continue to hold Lasix from home Watch renal fxn with restarting low dose Bactrim (5) Fall: Occurred 03/20/22 x 2. One fall with head injury. CT head negative for acute findings on 03/20/22. Cont PT/OT. MRI brain since that fall no traumatic findings (6) Cryptococcal pneumonitis: Bronchoscopy in January 2022 showed cryptococcus. LP in January 2022 negative for cryptococcus. Continue fluconazole 400 mg p.o. once daily x 12 months. Most recent EKG with stable QTc. (7) Fatigue: Likely multifactorial - ZAMZAM, pneumocystis pneumonia, COVID-19 infection, deconditioning, B1 deficiency, vitamin D deficiency, etc. Ongoing but improving. Recent TSH wnl. Thiamine supplementation in place. Recent ammonia wnl. CT head negative. MRI brain negative for acute/subacute CVA. B1 level undetectable - replacing. Cont PT/OT. Rehab post-d/c. (8) Acute respiratory failure with hypoxia: 2nd PCJ pneumonia. Resolved. (9) B12 deficiency: B12 level was 162 pg/ml. Cyanocobalamin 1000 mcg IM x 5 doses, now on PO B12 1000mcg daily. (10) History of pulmonary embolism: Continue Lovenox 1 mg/kg SQ BID Previously on coumadin but switched to Lovenox due to interaction with fluconazole (11) (HFpEF) heart failure with preserved ejection fraction: Compensated. 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 Continue prophylactic acyclovir 400 mg p.o. twice daily. Currently off all therapy due to cryptococcal pneumonia as well as PCJ pneumonia Follow-up with oncology after discharge (13) Thrombocytopenia: Resolved Lowest count was 87 Most recent platelet count 141 likely was infection-related (14) Anemia: H/H stable/acceptable folate and B12 def likely contributing anemia of chronic disease, blood draws, etc all contributing (15) BPH loc w urin obs/LUTS: Continue home dutasteride voiding w/o difficulty (16) GERD (gastroesophageal reflux disease): Continue PPI (17) Osteoporosis 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: (18) Depression: Continue home Celexa (19) Calculus of kidney: With a history of uric acid stones, follows with urology. Continue allopurinol. (20) Vitamin D deficiency: 25-OH vit D level = 9. ergocalciferol 50,000 units weekly. (21) Acute maxillary sinusitis: as seen on MRI brain. Now completed 7-day course of omnicef 300mg BID (22) Folate deficiency: Continue folic acid 1 mg p.o. daily (23) Thiamine deficiency: level undetectable (<6) cont thiamine 200mg po BID x 1 month and then decrease to 100 mg p.o. once daily after that certainly this can contribute to memory issues Dispo - [facility] SNF versus other SNF if can take sooner-awaiting insurance auth now that COVID negative and out of isolation from COVID on 04/02 Medically stable for discharge Total Time Total Time Spent Total Time Spent (In Minutes): 32 Discharge Plan Discharge Items Patient Disposition: Home - Self-Care Reason For Visit: HYPOXIA, PNEUMONIA Discharge Diagnosis: pcp PNEUMONIA Activity: Resume your previous activity Non-emergency contact: Primary Care Provider Call non-emergency contact if: you have any medication questions Follow-up/Referrals: Corazon Vargas MD [Primary Care Provider] - (office to call you with follow up appointment) Sheela Moore CRNP [Outside Practitioners] - 04/10/22 11:15 am Diet: Regular Diet Texture: Easy to Chew Addtl Attending Provider Instructions: You have been hospitalized for concerns for pulmonary infection with increased shortness of breath and underwent a bronchoscopy which was concerning for a PCP pneumonia. You have been treated with Bactrim (which has been discontinued) and remain on Atovaquone until April 01, then will be on maintenance Bactrim 1 tablet three times a week Wednesday, Wednesday, Wednesday. The atovaquone can cause weakness, imaging of the head after the fall was negative, but as you couldn't tolerate the high dose Bactrim, we will need to continue this and work on rehab to prevent worsening weakness until you complete your course. You should continue on the Fluconazole to complete course, likely for a total of one year for the cryptococcal pneumonia (which was improved on repeat imaging) You will need outpatient follow up with pulmonary medicine to have repeat CT of your chest. Your B12 was checked and low. We gave IM injections and then you should continue on oral supplementation. Your vitamin D was severely low at 9.7. You were started on supplementation and should continue once weekly for a 1-2 months, and then daily following. Please follow up with pulmonology, heme/oncology, and your primary care provider after discharge. Please return to the ER for any symptoms concerning for you. Take care! Pending Studies at Discharge: No Stand-Alone Forms: My [employer], Smoking Cessation Medications and DC Order Prescriptions: New sulfamethoxazole-trimethoprim [Bactrim DS] 800-160 mg Tablet 1 tab PO MoWeFr@0900 Qty: 30 RF: 0 enoxaparin [Lovenox] 80 mg/0.8 mL Syringe 80 mg subcut Q12 Qty: 8 RF: 0 sennosides-docusate sodium [Senokot-S] 8.6-50 mg Tablet 1 tab PO QAM Qty: 30 RF: 0 thiamine HCl (vitamin B1) 100 mg Tablet 200 mg PO BID Qty: 60 RF: 0 magnesium oxide 400 mg (241.3 mg magnesium) Tablet 400 mg PO QAM Qty: 30 RF: 0 cyanocobalamin (vitamin B-12) 500 mcg Tablet 1,000 mcg PO QAM Qty: 30 RF: 0 pantoprazole 40 mg Tablet,Delayed Release (Dr/Ec) 40 mg PO DAILY Qty: 30 RF: 0 folic acid 1 mg Tablet 1 mg PO QAM Qty: 30 RF: 0 ergocalciferol (vitamin D2) 1,250 mcg (50,000 unit) Capsule 50,000 unit PO Q7D@0800 Qty: 30 RF: 0 risperidone 0.5 mg Tablet,Disintegrating 0.5 mg PO HS Qty: 30 RF: 0 metoprolol tartrate 25 mg Tablet 25 mg PO BID Qty: 60 RF: 0 Continued acetaminophen [Acetaminophen Extra Strength] 500 mg Tablet 1,000 mg PO Q8 PRN (Reason: Fever Or Pain) RF: 0 polyethylene glycol 3350 [Miralax] 17 gram/dose Powder 17 g PO DAILY PRN (Reason: Constipation) RF: 0 daratumumab 20 mg/mL Solution 0 mg IV MONTHLY RF: 0 pomalidomide 4 mg capsule 4 mg PO DIRECTED RF: 0 allopurinol 100 mg tablet 100 mg PO BID Qty: 180 RF: 3 dutasteride 0.5 mg capsule 0.5 mg PO QAM Qty: 90 RF: 3 levalbuterol tartrate 45 mcg/actuation HFA aerosol inhaler 1 puffs INH Q6H PRN (Reason: shortness of breath) Qty: 15 RF: 1 acyclovir 400 mg Tablet 400 mg PO BID RF: 0 Neulasta Onpro 6 mg/0.6 mL Syringe, W/ Wearable Injector 6 mg subcut DIRECTED RF: 0 montelukast [Singulair] 10 mg tablet 10 mg PO MONTHLY PRN (Reason: Allergy Symptoms) RF: 0 citalopram 10 mg tablet 10 mg PO QAM RF: 0 zoledronic acid 4 mg/5 mL Solution 0 mg IV .Q 3 MONTHS RF: 0 fluconazole 100 mg tablet 400 mg PO DAILY RF: 0 fluticasone furoate-vilanterol [Breo Ellipta] 200-25 mcg/dose Blister With Device 1 inh INHALATION QAM RF: 0 dexamethasone 4 mg tablet 8 mg PO WK RF: 0 Discontinued furosemide [Lasix] 20 mg tablet 20 mg PO QAM RF: 0 enoxaparin [Lovenox] 150 mg/mL syringe See Rx Instructions subcut DAILY Qty: 30 RF: 1 potassium citrate [Urocit-K 10] 10 mEq (1,080 mg) tablet extended release 10 meq PO BID 90 Days Qty: 180 RF: 3 Discharge Orders: Discharge Order (Routine); Ordered 04/03/22 Ordered By: Terrence Allan Admission Data Admit Date/Time: 03/01/22 19:36 Attending Provider: Terrence Allan Admit Provider: Johnna Shepard Primary Care Provider: Corazon Vargas Other Providers: Baljeet Choi ; Fred Dumont ; Hadley Bustamante Other Interventions: Discharge Summary Assessment (RN) Last Done: 04/03/22 13:25 Coding Level of Care Code D/C DAY MANAGEMENT >30 MINS Diagnoses PCP (pneumocystis jiroveci pneumonia) B59 Acute encephalopathy G93.40 COVID-19 U07.1 Acute renal failure N17.9 Fall W19.XXXA Cryptococcal pneumonitis B45.0 Fatigue R53.83 Acute respiratory failure with hypoxia J96.01 B12 deficiency E53.8 History of pulmonary embolism Z86.711 (HFpEF) heart failure with preserved ejection fraction I50.30 Light chain myeloma C90.00 Thrombocytopenia D69.6 Anemia D64.9 BPH loc w urin obs/LUTS N40.1 GERD (gastroesophageal reflux disease) K21.9 Osteoporosis 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 M81.8; C90.00 Depression F32.9 Calculus of kidney N20.0 Vitamin D deficiency E55.9 Acute maxillary sinusitis J01.00 Folate deficiency E53.8 Thiamine deficiency E51.9
== END 2022-04-03 13:35 | DRG 177 ==
LOC: ED 14:31 → 3W 19:36 → SUATTDRO 19:36 → 3W 03-02 00:01 → 1E 03-04 13:39 → 2N 03-10 19:15 → 2S 03-29 21:13

== ENCOUNTER 2023-03-14 09:15 | Observation (INO) ==
[2023-03-14] MEDS ORDERED: ASPIRIN CHEW 324 MG PO STA (09:16)
--- NOTE | 2023-03-14 09:28 | Emergency Department Note ---
History of Present Illness General Chief Complaint: Chest Pain Stated Complaint: CHEST PAIN Time Seen by Provider: 03/14/23 09:16 History of Present Illness Provider Complaint: chest pain Onset (ago): day(s) 2 Duration: now resolved Onset: during rest Pain Location: substernal Pain Radiation: none Severity: mild Current Pain Intensity: 0 Quality: + heaviness (Pressure) Relieved By: + nothing Exacerbated By: + nothing Context: no recent illness, no recent surgery, no recent immobilization, no recent travel, no trauma/injury, no new medications or no history of DVT/PE Associated symptoms: no nausea, no vomiting, no diaphoresis, no dyspnea, no syncope, no palpitations, no fever, no cough or no leg swelling Home Medications Medication Instructions Recorded Confirmed Type acetaminophen 500 mg tablet 1,000 mg PO Q8 PRN Fever Or Pain 06/28/18 03/14/23 History (Acetaminophen Extra Strength) daratumumab 20 mg/mL intravenous 0 mg IV MONTHLY 06/28/18 03/14/23 History solution polyethylene glycol 3350 17 17 g PO DAILY PRN Constipation 06/28/18 03/14/23 History gram/dose oral powder (Miralax) acyclovir 400 mg tablet 400 mg PO BID 08/02/18 03/14/23 History citalopram 10 mg tablet 10 mg PO QAM 04/25/19 03/14/23 History zoledronic acid 4 mg/5 mL 0 mg IV .Q 3 MONTHS 04/25/19 03/14/23 History intravenous solution levalbuterol tartrate 45 1 puffs inhalation Q6H PRN 12/05/19 03/14/23 Rx mcg/actuation aerosol inhaler shortness of breath #15 grams montelukast 10 mg tablet 10 mg PO MONTHLY PRN Allergy 07/25/20 03/14/23 History (Singulair) Symptoms ergocalciferol (vitamin D2) 1,250 50,000 unit PO Q7D@0800 #30 caps 04/03/22 03/14/23 Rx mcg (50,000 unit) capsule folic acid 1 mg tablet 1 mg PO QAM #30 tabs 04/03/22 03/14/23 Rx magnesium oxide 400 mg (241.3 mg 400 mg PO QAM #30 tabs 04/03/22 03/14/23 Rx magnesium) tablet metoprolol tartrate 25 mg tablet 25 mg PO BID #60 tabs 04/03/22 03/14/23 Rx pantoprazole 40 mg tablet,delayed 40 mg PO DAILY #30 tabs 04/03/22 03/14/23 Rx release thiamine HCl (vitamin B1) 100 mg 200 mg PO BID #60 tabs 04/03/22 03/14/23 Rx tablet dutasteride 0.5 mg capsule 0.5 mg PO QAM #90 caps 06/16/22 03/14/23 Rx cetirizine 10 mg tablet (Zyrtec) 10 mg PO BID PRN Allergy Symptoms 10/29/22 03/14/23 History docusate sodium 100 mg capsule 100 mg PO DAILY 10/29/22 03/14/23 History (Colace) cyanocobalamin (vitamin B-12) 500 1,000 mcg PO Q OTHER DAY 11/03/22 03/14/23 History mcg tablet triamcinolone acetonide 0.1 % 1 applic topical DAILY 11/03/22 03/14/23 History topical cream Breo Ellipta 200 mcg-25 mcg/dose 1 inh inhalation QAM #60 ea 12/24/22 03/14/23 Rx powder for inhalation (fluticasone furoate-vilanterol) apixaban 5 mg tablet (Eliquis) 5 mg PO BID #180 tabs 01/07/23 03/14/23 Rx potassium citrate 10 mEq (1,080 2,160 mg PO DAILY #90 tabs 02/25/23 03/14/23 Rx mg) tablet,extended release Allergies Allergy/AdvReac Type Severity Reaction Status Date / Time dexamethasone AdvReac Severe Hallucinati Verified 02/25/23 11:09 on prednisone AdvReac Severe hallucinati Verified 02/25/23 11:09 ons meclizine AdvReac Intermediate HALLUCINATI Verified 02/25/23 11:09 ON sulfamethoxazole AdvReac Intermediate Hallucinati Unverified 03/14/23 11:04 [From Bactrim] ng trimethoprim [From Bactrim] AdvReac Intermediate Hallucinati Unverified 03/14/23 11:04 ng hydrocodone AdvReac Mild AGITATION Verified 02/25/23 11:09 levofloxacin [From Levaquin] AdvReac Mild muscle Verified 02/25/23 11:09 weakness lisinopril AdvReac Mild Dizziness Verified 02/25/23 11:09 Past Med/Surg History Medical History (HFpEF) heart failure with preserved ejection fraction Anemia BASELINE 8-9 RANGE BPH loc w urin obs/LUTS Calculus of kidney Cancer MULTIPLE MYELOMA (DX'D 2015); stem cell transplant, chemo Cryptococcal pneumonitis Current use of jail anticoagulation Depression GERD (gastroesophageal reflux disease) Gout History of nephrolithiasis History of pneumothorax 2020 with lung biopsy History of pulmonary embolism [place] (hard of hearing) Irregular heartbeat 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 Port-A-Cath in place Left chest Pulmonary embolism 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); 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 SOB (shortness of breath) on exertion Thrombocytopenia Tremor Surgical History Bone marrow replaced by transplant History of cataract surgery RT History of chest tube placement History of lung biopsy benign Family History Father Cardiac disorder Heart disease Mother Cancer Stroke Other No family history of adverse response to anesthesia Social History Smoking Status: Never smoker Second Hand Exposure: No; Do You Dip or Chew Tobacco: No; Hx Alcohol Use: No Hx Substance Use: No Preferred Language: [place] Communication Ability: Effective Communication Ability Comment: hard of hearing Visual Impairment: No Limitations 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 Beliefs That Will Affect Care: None marital status: Current Living Situation: Spouse current occupational status: retired How many Children do You have: 0 Feels Safe at Home: Yes Diet: regular during the past year weight has: remained stable Assistive Devices: Walker Physical Exam Vital Signs Vital Signs - 24 hr 03/14/23 09:16 03/14/23 09:16 03/14/23 09:28 Temperature 36.8 C Temperature Source Oral Pulse Rate 74 Pulse Rate [Apical] Pulse Rate from SpO2 Sensor Pulse Rhythm Regular Pulse Rhythm [Apical] Pulse Strength Normal Pulse Strength [Apical] Respiratory Rate 16 Respiratory Effort / Characteristics Non-Labored Labored Respiratory Depth Normal Respiratory Pattern Regular Blood Pressure 179/99 H Blood Pressure [Right Arm] Blood Pressure Mean 125 Blood Pressure Mean [Right Arm] Pulse Oximetry 95 95 Oxygen Delivery Method Room Air Room Air Room Air Sepsis Recent Fever Within 48 Hours No Sepsis New/Unexplained Change in Mental Status No Sepsis Action Taken by Nursing No Action Required 03/14/23 09:28 03/14/23 10:09 03/14/23 09:30 Temperature Temperature Source Pulse Rate 72 Pulse Rate [Apical] 74 Pulse Rate from SpO2 Sensor Pulse Rhythm Pulse Rhythm [Apical] Regular Pulse Strength Pulse Strength [Apical] Normal Respiratory Rate 16 Respiratory Effort / Characteristics Non-Labored Respiratory Depth Normal Respiratory Pattern Regular Blood Pressure 179/98 H Blood Pressure [Right Arm] 179/99 H Blood Pressure Mean 133 Blood Pressure Mean [Right Arm] 125 Pulse Oximetry 95 Oxygen Delivery Method Room Air Sepsis Recent Fever Within 48 Hours Sepsis New/Unexplained Change in Mental Status Sepsis Action Taken by Nursing 03/14/23 09:30 03/14/23 10:00 03/14/23 10:00 Temperature Temperature Source Pulse Rate 77 72 Pulse Rate [Apical] Pulse Rate from SpO2 Sensor 76 73 Pulse Rhythm Pulse Rhythm [Apical] Pulse Strength Pulse Strength [Apical] Respiratory Rate 21 13 Respiratory Effort / Characteristics Respiratory Depth Respiratory Pattern Blood Pressure 182/102 H Blood Pressure [Right Arm] Blood Pressure Mean 131 Blood Pressure Mean [Right Arm] Pulse Oximetry 94 95 Oxygen Delivery Method Sepsis Recent Fever Within 48 Hours Sepsis New/Unexplained Change in Mental Status Sepsis Action Taken by Nursing 03/14/23 10:30 03/14/23 10:31 03/14/23 10:31 Temperature Temperature Source Pulse Rate 72 72 Pulse Rate [Apical] Pulse Rate from SpO2 Sensor 72 72 Pulse Rhythm Pulse Rhythm [Apical] Pulse Strength Pulse Strength [Apical] Respiratory Rate 20 19 Respiratory Effort / Characteristics Respiratory Depth Respiratory Pattern Blood Pressure 174/105 H Blood Pressure [Right Arm] Blood Pressure Mean 134 Blood Pressure Mean [Right Arm] Pulse Oximetry 96 96 Oxygen Delivery Method Sepsis Recent Fever Within 48 Hours Sepsis New/Unexplained Change in Mental Status Sepsis Action Taken by Nursing 03/14/23 11:00 03/14/23 11:00 Temperature Temperature Source Pulse Rate 72 Pulse Rate [Apical] Pulse Rate from SpO2 Sensor 70 Pulse Rhythm Pulse Rhythm [Apical] Pulse Strength Pulse Strength [Apical] Respiratory Rate 20 Respiratory Effort / Characteristics Respiratory Depth Respiratory Pattern Blood Pressure 153/112 H Blood Pressure [Right Arm] Blood Pressure Mean 139 Blood Pressure Mean [Right Arm] Pulse Oximetry 96 Oxygen Delivery Method Sepsis Recent Fever Within 48 Hours Sepsis New/Unexplained Change in Mental Status Sepsis Action Taken by Nursing Physical Exam GENERAL: oriented to person, place, and time. appears well-developed and well- nourished. HENT: Exam performed. - Head: Normocephalic and atraumatic. EYES: Conjunctivae and EOM are normal. Right eye exhibits no discharge. Left eye exhibits no discharge. No scleral icterus. NECK: Normal range of motion. Neck supple. No JVD present. CV: Normal rate, regular rhythm, normal heart sounds and intact distal pulses. There is no peripheral edema. Palpable radial pulses bue. PULM/CHEST: Effort normal and breath sounds normal. No respiratory distress. No stridor. no wheezes. no rales. ABD: The abdomen is soft. There is no tenderness. NEURO: Motor and sensation grossly intact. SKIN: Skin is warm and dry. He is not diaphoretic. PSYCH: normal mood and affect. Behavior is normal. Judgment and thought content normal. Course Course 0916: The patient was evaluated in room C9. A complete history and physical exam was performed Cardiac monitoring: An order was placed for continuous cardiac monitoring. The monitor shows a rate of 80 with sinus rhythm interpreted by me 1037: Vital signs stable.Labs within normal limits. Chest x-ray reviewed by me did not show any infiltrate. Formal chest x-ray read reported a possible left pleural effusion and/or left base airspace opacity which may represent atelectasis pneumonia and/or aspiration. Patient has not had any fever or abnormal cough. Very low concern for pneumonia. is at bedside and states that the patient has a long pulmonary history follows with Dr. Graves. She states last year the patient had to be admitted to the hospital for a month. She states the patient does not usually tell her when he is having chest pain or any problems. After long discussion with the and patient we decided would be better for the patient to stay in the hospital for observation given his chest pain to be evaluated by cardiology and pulmonology and have further testing done. At any hospitalist team will be contacted for admission. 1050: External medical records reviewed. Patient has a history of multiple myeloma. He has had a stem cell transplant in 2017. The patient was admitted from March 01, 2022 until April 03, 2022 to this facility. During that admission which was for over a month the patient was diagnosed with pneumocystis Edison OCD pneumonia. This was confirmed by bronchoscopy in March 10, 2022. The patient was started on prednisone and Bactrim within the patient developed severe al tered mental status and encephalopathy. There is question of whether the altered mental status was secondary to steroids and Bactrim or due to his getting COVID while being admitted to the hospital. The patient was started on atovaquone from March 18, 2022 until April 01, 2022. The patient also has a history of cryptococcal pneumonia based off of bronchoscopy that was done in January 2022. The patient has a CT of the chest done in December 2022 which showed interval stability of multiple nodules and chronic infection which showed no new infections multiple compression deformities are seen in the setting of multiple myeloma. The patient was seen by pulmonary last in November 2022 and is suppose d to have a repeat CT of the chest without contrast in 10 months. Given this a CT of the chest will be performed without contrast. 1249: Vital signs stable. CT of the chest showed interval slight decrease of the bilateral pulmonary nodules compatible with an improvement in the chronic infection as per radiology. Patient admitted to the [facility] Hospitalist team. Administered Medications Discontinued Medications Aspirin (Aspirin Chew 324 Mg) 324 mg PO NOW STA Stop: 03/14/23 09:17 Last Admin: 03/14/23 09:26 Dose: 324 mg Documented By: RSNuzhat Medical Decision Making Medical Records Attestation: I reviewed the patient's medical records. Laboratory Data Attestation: I reviewed the patient's lab results. 03/14/23 09:20 03/14/23 09:20 Labs: Lab Results 03/14/23 03/14/23 03/14/23 Range/Units 09:20 09:20 09:20 WBC 9.33 (4.8-10.8) K/ul RBC 4.20 L (4.70-6.10) M/uL Hgb 13.7 L (14.0-18.0) g/dl Hct 40.7 L (42.0-52.0) % MCV 96.9 (80.0-100.0) fL MCH 32.6 (25.0-34.0) pg MCHC 33.7 (32.0-36.0) g/dL RDW Std Deviation 56.6 H (36.4-46.3) fL RDW Coeff of Eyal 15.9 H (11.5-14.5) % Plt Count 191 (130-400) K/uL MPV 10.0 (9.4-12.4) fL Immature Gran % (Auto) 0.6 % Neut % (Auto) 80.7 % Lymph % (Auto) 6.9 % Long % (Auto) 10.2 % Eos % (Auto) 1.3 % Baso % (Auto) 0.3 % Neut # (Auto) 7.53 H (1.40-6.50) K/uL Lymph # (Auto) 0.64 L (1.2-3.4) K/uL Long # (Auto) 0.95 H (0.11-0.59) K/uL Eos # (Auto) 0.12 (0-0.50) K/uL Baso # (Auto) 0.03 (0-0.2) K/uL Immature Gran # (Auto) 0.06 (0.01-0.20) K/uL PT 10.6 (9.0-12.0) Seconds INR 1.0 (0.9-1.1) APTT < 20.0 L (21.0-31.0) Seconds PTT Ratio 0.7 Sodium 144 (136-145) mmol/L Potassium 4.1 (3.5-5.1) mmol/L Chloride 110 H (98-107) mmol/L Carbon Dioxide 26 (21-32) mmol/L Anion Gap 8 (3-11) BUN 20 (6-23) mg/dl Creatinine 0.96 (0.6-1.4) mg/dl Est Cr Clr Drug Dosing 78.2 ml/min Est GFR ( Amer) 88.0 ml/min Est GFR (Non-Af Amer) 75.9 ml/min BUN/Creatinine Ratio 20.8 H (10-20) Glucose 90 (70-99(Fasting)) mg/dl Calcium 8.6 (8.6-10.3) mg/dl Troponin I High Sens 8.9 (0-20) pg/ml Lipase 26 (11-82) U/L SARS-CoV-2, RNA, NAAT (NEGATIVE) 03/14/23 Range/Units 10:53 WBC (4.8-10.8) K/ul RBC (4.70-6.10) M/uL Hgb (14.0-18.0) g/dl Hct (42.0-52.0) % MCV (80.0-100.0) fL MCH (25.0-34.0) pg MCHC (32.0-36.0) g/dL RDW Std Deviation (36.4-46.3) fL RDW Coeff of Eyal (11.5-14.5) % Plt Count (130-400) K/uL MPV (9.4-12.4) fL Immature Gran % (Auto) % Neut % (Auto) % Lymph % (Auto) % Long % (Auto) % Eos % (Auto) % Baso % (Auto) % Neut # (Auto) (1.40-6.50) K/uL Lymph # (Auto) (1.2-3.4) K/uL Long # (Auto) (0.11-0.59) K/uL Eos # (Auto) (0-0.50) K/uL Baso # (Auto) (0-0.2) K/uL Immature Gran # (Auto) (0.01-0.20) K/uL PT (9.0-12.0) Seconds INR (0.9-1.1) APTT (21.0-31.0) Seconds PTT Ratio Sodium (136-145) mmol/L Potassium (3.5-5.1) mmol/L Chloride (98-107) mmol/L Carbon Dioxide (21-32) mmol/L Anion Gap (3-11) BUN (6-23) mg/dl Creatinine (0.6-1.4) mg/dl Est Cr Clr Drug Dosing ml/min Est GFR ( Amer) ml/min Est GFR (Non-Af Amer) ml/min BUN/Creatinine Ratio (10-20) Glucose (70-99(Fasting)) mg/dl Calcium (8.6-10.3) mg/dl Troponin I High Sens (0-20) pg/ml Lipase (11-82) U/L SARS-CoV-2, RNA, NAAT NEGATIVE (NEGATIVE) Imaging Data Chest x-ray: Attestation: I personally reviewed and interpreted this imaging study as follows: My impression: Chest x-ray: No acute infiltrate Radiologist's impression: Chest X-Ray 03/14/23 09:16 XR chest 1V portable CLINICAL HISTORY: Chest pain, nonspecific TECHNIQUE: Single frontal radiograph of the chest was obtained. Comparison: Comparison is made to chest radiograph 03/27/2022 FINDINGS: A port catheter is seen. The cardiomediastinal silhouette is stable. Lungs are underinflated but clear apart from questionable opacity at the lateral left lung base.. A small left pleural effusion cannot be excluded with blunting of the costophrenic angle. IMPRESSION: Possible left pleural effusion and/or left lung base airspace opacity which may represent atelectasis, pneumonia, and/or aspiration.. ACT 112: Negative or not required by law. Electronically signed by: Bart Pace M.D. 03/14/2023 9:43 AM ECG Data Attestation: I personally reviewed and interpreted this ECG as follows: Indication: chest pain Rate (beats per minute): 78 Rhythm: normal sinus Findings: no ST depression, no ST elevation or no prolonged QT [facility] Narrative 0916: The patient was evaluated in room C9. A complete history and physical exam was performed Cardiac monitoring: An order was placed for continuous cardiac monitoring. The monitor shows a rate of 80 with sinus rhythm interpreted by me 1037: Vital signs stable.Labs within normal limits. Chest x-ray reviewed by me did not show any infiltrate. Formal chest x-ray read reported a possible left pleural effusion and/or left base airspace opacity which may represent atelectasis pneumonia and/or aspiration. Patient has not had any fever or abnormal cough. Very low concern for pneumonia. is at bedside and states that the patient has a long pulmonary history follows with Dr. Graves. She states last year the patient had to be admitted to the hospital for a month. She states the patient does not usually tell her when he is having chest pain or any problems. After long discussion with the and patient we decided would be better for the patient to stay in the hospital for observation given his chest pain to be evaluated by cardiology and pulmonology and have further testin g done. At any hospitalist team will be contacted for admission. 1050: External medical records reviewed. Patient has a history of multiple myeloma. He has had a stem cell transplant in 2017. The patient was admitted from March 01, 2022 until April 03, 2022 to this facility. During that admission which was for over a month the patient was diagnosed with pneumocystis Edison OCD pneumonia. This was confirmed by bronchoscopy in March 10, 2022. The patient was started on prednisone and Bactrim within the patient developed severe altered mental status and encephalopathy. There is question of whether the altered mental status was secondary to steroids and Bactrim or due to his getting COVID while being admitted to the hospital. The patient was started on atovaquone from March 18, 2022 until April 01, 2022. The patient also has a history of cryptococcal pneumonia based off of bronchoscopy that was done in January 2022. The patient has a CT of the chest done in December 2022 which showed interval stability of multiple nodules and chronic infection which showed no new infections multiple compression deformities are seen in the setting of multiple myeloma. The patient was seen by pulmonary last in November 2022 and is supposed to have a repeat CT of the chest without contrast in 10 months. Given this a CT of the chest will be performed without contrast. 1249: Vital signs stable. CT of the chest showed interval slight decrease of the bilateral pulmonary nodules compatible with an improvement in the chronic infection as per radiology. Patient admitted to the [facility] Hospitalist team. Impression & Plan Chest pain Discharge Plan Visit Data Chief Complaint: Chest Pain Stated Complaint: CHEST PAIN ED Provider: Eugenio Bullock Discharge Problem: Chest pain Patient Disposition: Admitted As Inpatient Forms Stand Alone Forms: [facility] Prescriptions Prescriptions: No Action acetaminophen [Acetaminophen Extra Strength] 500 mg Tablet 1,000 mg PO Q8 PRN (Reason: Fever Or Pain) polyethylene glycol 3350 [Miralax] 17 gram/dose Powder 17 g PO DAILY PRN (Reason: Constipation) Rx Instructions: PRN daratumumab 20 mg/mL Solution 0 mg IV MONTHLY Rx Instructions: per he had 3rd treatment this past week Monthly at [facility] via IV. On hold docusate sodium [Colace] 100 mg capsule 100 mg PO DAILY cetirizine [Zyrtec] 10 mg tablet 10 mg PO BID PRN (Reason: Allergy Symptoms) dutasteride 0.5 mg capsule 0.5 mg PO QAM Qty: 90 3RF fluticasone furoate-vilanterol [Breo Ellipta] 200-25 mcg/dose blister with device 1 inh INHALATION QAM Qty: 60 5RF Eliquis 5 mg tablet 5 mg PO BID Qty: 180 1RF cyanocobalamin (vitamin B-12) 500 mcg tablet 1,000 mcg PO Q OTHER DAY triamcinolone acetonide 0.1 % cream 1 applic topical DAILY potassium citrate 10 mEq (1,080 mg) tablet extended release 2,160 mg PO DAILY Qty: 90 2RF Rx Instructions: just started a week ago per levalbuterol tartrate 45 mcg/actuation HFA aerosol inhaler 1 puffs INH Q6H PRN (Reason: shortness of breath) Qty: 15 1RF Rx Instructions: PRN acyclovir 400 mg Tablet 400 mg PO BID montelukast [Singulair] 10 mg tablet 10 mg PO MONTHLY PRN (Reason: Allergy Symptoms) Rx Instructions: Pre chemo the night before monthly chemo treatments citalopram 10 mg tablet 10 mg PO QAM zoledronic acid 4 mg/5 mL Solution 0 mg IV .Q 3 MONTHS thiamine HCl (vitamin B1) 100 mg Tablet 200 mg PO BID Qty: 60 0RF magnesium oxide 400 mg (241.3 mg magnesium) Tablet 400 mg PO QAM Qty: 30 0RF pantoprazole 40 mg Tablet,Delayed Release (Dr/Ec) 40 mg PO DAILY Qty: 30 0RF folic acid 1 mg Tablet 1 mg PO QAM Qty: 30 0RF ergocalciferol (vitamin D2) 1,250 mcg (50,000 unit) Capsule 50,000 unit PO Q7D@0800 Qty: 30 0RF metoprolol tartrate 25 mg Tablet 25 mg PO BID Qty: 60 0RF Referrals Referrals: Corazon Vargas MD [Primary Care Provider] -
--- NOTE | 2023-03-14 09:44 | XRay Report ---
XR chest 1V portable CLINICAL HISTORY: Chest pain, nonspecific TECHNIQUE: Single frontal radiograph of the chest was obtained. Comparison: Comparison is made to chest radiograph 03/27/2022 FINDINGS: A port catheter is seen. The cardiomediastinal silhouette is stable. Lungs are underinflated but alessandro r apart from questionable opacity at the lateral left lung base.. A small left pleural effusion canno t be excluded with blunting of the costophrenic angle. IMPRESSION: Possible left pleural effusion and/or left lung base airspace opacity which may represent atelectasis , pneumonia, and/or aspiration.. ACT 112: Negative or not required by law. Electronically signed by: Bart Pace M.D. 03/14/2023 9:43 AM
[2023-03-14 10:05] LABS: Basophils # (auto) 0.03 K/uL (0-0.2); Basophils % (auto) 0.3 %; Eosinophils # (auto) 0.12 K/uL (0-0.50); Eosinophils % (auto) 1.3 %; Hematocrit (blood only) 40.7 % (42.0-52.0); Hemoglobin 13.7 g/dl (14.0-18.0); Immature Granulocytes # (auto) 0.06 K/uL (0.01-0.20); Immature Granulocytes % (auto) 0.6 %; Lymphocytes # (auto) 0.64 K/uL (1.2-3.4); Lymphocytes % (auto) 6.9 %; Mean Corpuscular Hemoglobin 32.6 pg (25.0-34.0); Mean Corpuscular Hgb Conc 33.7 g/dL (32.0-36.0); Mean Corpuscular Volume 96.9 fL (80.0-100.0); Monocytes # (auto) 0.95 K/uL (0.11-0.59); Monocytes % (auto) 10.2 %; Neutrophils # (auto) 7.53 K/uL (1.40-6.50); Neutrophils % (auto) 80.7 %; Platelet Count 191 K/uL (130-400); RDW Coefficient of Variation 15.9 % (11.5-14.5); RDW Standard Deviation 56.6 fL (36.4-46.3); White Blood Count 9.33 K/ul (4.8-10.8)
[2023-03-14 10:09] LABS: BUN Creatinine Ratio 20.8 (10-20); Calcium 8.6 mg/dl (8.6-10.3); Creatinine Clr Calc Pharmacy 78.2 ml/min; Est GFR (Non-African American) 75.9 ml/min; Potassium 4.1 mmol/L (3.5-5.1)
[2023-03-14 10:14] LABS: Troponin I High Sensitivity 8.9 pg/ml (0-20)
[2023-03-14 10:19] LABS: Partial Thromboplastin Ratio 0.7; Prothrombin Time 10.6 Seconds (9.0-12.0)
[2023-03-14 10:21] LABS: Partial Thromboplastin Time < 20.0 Seconds (21.0-31.0)
--- NOTE | 2023-03-14 11:03 | History & Physical Report ---
Date of Service March 14, 2023 Assessment & Plan (1) Chest pain: Plan: Chest pain, acute Patient reports new chest pressure intermittently and sometimes with baling hay in the last month, was acutely worse last night with an episode in the early evening, 2 to 3 AM, and again in the morning that caused him to call EMS. Pain improved a little bit with Tylenol, but then resolved on oxygen. He has chronic shortness of breath with a complicated pulmonary history as noted below, but notes his shortness of breath has not generally changed but has been present during his episodes of pressure. Denies diaphoresis/syncope/presyncope. Initially reported as constant episodes since last night, patient clarifies he has had multiple episodes over the night but each episode lasted no longer than around 3 minutes No reproducible sternal pain on palpation. Does have a history of reflux. Recently received chemotherapy within the last week. Did discuss with oncology, rates of cardiomyopathy while reported are very rare with Darzalex, low suspicion for immunotherapy based cardiotoxic - WBC - Hgb 13.7 -Troponin high-sensitivity normal on admission. Episodes have been less than 1520 minutes and may not have triggered troponin. Troponin has been trended, echo pending Creatinine normal at baseline, 0.96 on admission CXR: Left pleural effusion/left lung base airspace opacity nonspecific. EKG: Normal sinus rhythm. QTc 444. No T wave inversions, no territorial ST segment changes. Compared to 03/29/2022 prior nonspecific T wave abnormality has improved Cardiology consulted.? Dobutamine versus nuclear stress test Restrictive lung disease, chronic without acute exacerbation No wheezing or evidence of acute exacerbation of lung disease on admission PFTs 11/04/2022: FVC 2.65 (63% predicted), FEV1 1.92 (64% predicted), FEV1/FVC ratio 72.45, DLCO 10.45 (42% predicted). No evidence of obstructive lung disease. No significant air trapping. Moderate restrictive lung disease, moderate decrease in TLC with severe disease in ERV. Moderate decrease in DLCO. Suspected with underlying BMI component Past CTs with stable right upper lobe and left lower lobe opacity/nodularity, right upper lobe improved compared to 05/2022 left upper lobe no change from prior No obstructive disease noted on 11/04/2022 PFTs. Recommended to use Breo on as-needed basis, and if he has wheezing/chest tightness then to switch to daily History of Pneumocystis pneumonia, March 2022, completed Bactrim x21 days. No evidence of acute infection/pneumonia History of cryptococcal pneumonia Consolidative right upper lobe pneumonia likely with subsequent scarring Completed 6 months of Diflucan started 01/21/2022. CSF cryptococcal antigen negative No evidence of acute infection/pneumonia History of PE On apixaban, continue. 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 S/p RVD x4 with VG NM and server stem cell transplant 12/09/2016 Was started on bisphosphonate therapy wildly for 1 year then every 3 months Hypogammaglobulinemiareceives IVIG replacement as needed. Patient has had IVIG infusion reactions, and was subsequently switched to lower dose infusions at extended interval every 6 weeks. Every 6 weeks at 200 mg/kg. Per pt last IVIG several months ago per onc notes last was 2021 -Discussed with heme-onc at time of admission. Hold IVIG, no evidence of acute infection at this time. If patient becomes febrile, develops leukocytosis, shows other signs of acute infection can consult oncology at that time BPH with LUTS, chronic, stable Dutasteride continued Bladder scan every shift Past gross hematuria, chronic without exacerbation or recent recurrence History of uric acid stones causing right ureteral orifice bleeding in the past Improved clinically. Did have follow-up with concern for perirenal hematoma, had clinically improved. Per patient allopurinol has actually been restarted as once daily dosing. We will continue this along with potassium citrate. DVT prophylaxis: Eliquis Disposition: Medical telemetry for chest pain CODE STATUS: DNR/DNI Diet: Heart healthy (2) Paroxysmal atrial fibrillation: (3) History of pulmonary embolism: (4) BPH loc w urin obs/LUTS: (5) Multiple myeloma: (6) GERD (gastroesophageal reflux disease): (7) H/O bone marrow transplant: (8) Uric acid kidney stone: History of Present Illness Primary Care Provider: Corazon Vargas MD p/w chest pain x1 day. Got better, came back at 4am then improved. Each episode lasted >1 hour. 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 No acute rash Bruising from eliquis Per patient on and off pressure in the center chest last night 2-3am had another episode that woke him from sleep Episodes lasted 'a while, werent no 10-20 second episodes, more like 2-3 minutes'. No episode lasting >20 minutes. Took a few tylenol and pain seemed to get better but did not go away. Called EMS and was put on oxygen. When he was on oxygen the pain went away completely and was brought in to the ER. Had a chemo treatment this past wednesday and usually takes it easy for a few days. has had diarrhea 2-3 days which is normal. No prior chest pain. Does endores a history of intermittent chest pressure. I sa kelly and maximilian hay and endorses that he does get soem chest pressure and shortness of breath in the lst month. Normally had shortness of breath but chest pressure is new. 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 Father with PA at age 53. 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 On Darzalex SQ monthly, last was this past (was off for 4 months due to rash from the other form) IVIG infusions stopped due to rash. Has been a while, less than 6 months but doesn't remember exactly. Still using Breo every morning. Hasn't tapered, noticed more wheezing with hay and dust and hasn't wanted to taper yet Eliquis BID still did not take any meds this morning. Medical History: Reviewed Medications: Reviewed Surgical History: Reviewed Family history: Reviewed Allergies: Reviewed Social History: no tobacco or etoh Code Status: DNR/DNI Allergies Allergy/AdvReac Type Severity Reaction Status Date / Time dexamethasone AdvReac Severe Hallucinati Verified 02/25/23 11:09 on prednisone AdvReac Severe hallucinati Verified 02/25/23 11:09 ons meclizine AdvReac Intermediate HALLUCINATI Verified 02/25/23 11:09 ON sulfamethoxazole AdvReac Intermediate Hallucinati Unverified 03/14/23 11:04 [From Bactrim] ng trimethoprim [From Bactrim] AdvReac Intermediate Hallucinati Unverified 03/14/23 11:04 ng hydrocodone AdvReac Mild AGITATION Verified 02/25/23 11:09 levofloxacin [From [facility]] AdvReac Mild muscle Verified 02/25/23 11:09 weakness lisinopril AdvReac Mild Dizziness Verified 02/25/23 11:09 Home Medications Medication Instructions Recorded Confirmed Type acetaminophen 500 mg tablet 1,000 mg PO Q8 PRN Fever Or Pain 06/28/18 03/14/23 History (Acetaminophen Extra Strength) daratumumab 20 mg/mL intravenous 0 mg IV MONTHLY 06/28/18 03/14/23 History solution polyethylene glycol 3350 17 17 g PO DAILY PRN Constipation 06/28/18 03/14/23 History gram/dose oral powder (Miralax) acyclovir 400 mg tablet 400 mg PO BID 08/02/18 03/14/23 History citalopram 10 mg tablet 10 mg PO QAM 04/25/19 03/14/23 History zoledronic acid 4 mg/5 mL 0 mg IV .Q 3 MONTHS 04/25/19 03/14/23 History intravenous solution levalbuterol tartrate 45 1 puffs inhalation Q6H PRN 12/05/19 03/14/23 Rx mcg/actuation aerosol inhaler shortness of breath #15 grams montelukast 10 mg tablet 10 mg PO MONTHLY PRN Allergy 07/25/20 03/14/23 History (Singulair) Symptoms ergocalciferol (vitamin D2) 1,250 50,000 unit PO Q7D@0800 #30 caps 04/03/22 03/14/23 Rx mcg (50,000 unit) capsule folic acid 1 mg tablet 1 mg PO QAM #30 tabs 04/03/22 03/14/23 Rx magnesium oxide 400 mg (241.3 mg 400 mg PO QAM #30 tabs 04/03/22 03/14/23 Rx magnesium) tablet metoprolol tartrate 25 mg tablet 25 mg PO BID #60 tabs 04/03/22 03/14/23 Rx pantoprazole 40 mg tablet,delayed 40 mg PO DAILY #30 tabs 04/03/22 03/14/23 Rx release thiamine HCl (vitamin B1) 100 mg 200 mg PO BID #60 tabs 04/03/22 03/14/23 Rx tablet dutasteride 0.5 mg capsule 0.5 mg PO QAM #90 caps 06/16/22 03/14/23 Rx cetirizine 10 mg tablet (Zyrtec) 10 mg PO BID PRN Allergy Symptoms 10/29/22 03/14/23 History docusate sodium 100 mg capsule 100 mg PO DAILY 10/29/22 03/14/23 History (Colace) cyanocobalamin (vitamin B-12) 500 1,000 mcg PO Q OTHER DAY 11/03/22 03/14/23 History mcg tablet triamcinolone acetonide 0.1 % 1 applic topical DAILY 11/03/22 03/14/23 History topical cream Breo Ellipta 200 mcg-25 mcg/dose 1 inh inhalation QAM #60 ea 12/24/22 03/14/23 Rx powder for inhalation (fluticasone furoate-vilanterol) apixaban 5 mg tablet (Eliquis) 5 mg PO BID #180 tabs 01/07/23 03/14/23 Rx potassium citrate 10 mEq (1,080 2,160 mg PO DAILY #90 tabs 02/25/23 03/14/23 Rx mg) tablet,extended release Past Med/Surg History Medical History (HFpEF) heart failure with preserved ejection fraction Anemia BASELINE 8-9 RANGE BPH loc w urin obs/LUTS Calculus of kidney Cancer MULTIPLE MYELOMA (DX'D 2015); stem cell transplant, chemo Cryptococcal pneumonitis 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 Depression GERD (gastroesophageal reflux disease) Gout History of nephrolithiasis History of pneumothorax 2019 with lung biopsy History of pulmonary embolism [place] (hard of hearing) Irregular heartbeat 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 Port-A-Cath in place Left chest Pulmonary embolism 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); 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 SOB (shortness of breath) on exertion Thrombocytopenia Tremor Surgical History Bone marrow replaced by transplant History of cataract surgery RT History of chest tube placement History of lung biopsy benign Family History Father Cardiac disorder Heart disease Mother Cancer Stroke Other No family history of adverse response to anesthesia Social History Smoking Status: Never smoker Second Hand Exposure: No; Do You Dip or Chew Tobacco: No; Hx Alcohol Use: No Hx Substance Use: No Preferred Language: [place] Communication Ability: Effective Communication Ability Comment: hard of hearing Visual Impairment: No Limitations 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 NAD. Cooperative. Skin: Left port in place. Right annular hematoma on upper right chest. No other rash appreciated HEENT: Atraumatic, normocephalic. Vision/hearing intact. Pupils equal and reactive to light Pulm: Diminished but otherwise CTAB A&P. -wheezes, -rales, -rhonchi. Symmetrical chest rise. No increased work of breathing. No respiratory distress. Cardiac: RRR, -mrg. Radial pulses intact and symmetrical. Abdominal: Nontender, nondistended, soft. BS present. Extremities: Warm, dry. Moves all extremities equally. 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 Pedal edema is present, chronic and unchanged since being on chemo per patient Results & Data Results & Data Vital Signs (Past 12 Hours) Vital Signs Temp Pulse Pulse Resp BP BP Pulse Ox 03/14/23 10:09 72 03/14/23 09:28 74 16 179/99 H 95 03/14/23 09:28 03/14/23 09:16 95 03/14/23 09:16 36.8 C 74 16 179/99 H 95 O2 Del Method 03/14/23 10:09 03/14/23 09:28 Room Air 03/14/23 09:28 Room Air 03/14/23 09:16 Room Air 03/14/23 09:16 Room Air PG Care Time/CCT Total # of Minutes Spent Total Time Spent with Patient: Total time spent is greater than 50% in coordination of care (as documented) at patient's floor/unit and/or counseling patient: Coding Level of Care Code 46922 INT INP/OBS CARE 75MIN Diagnoses Chest pain R07.9 Paroxysmal atrial fibrillation I48.0 History of pulmonary embolism Z86.711 BPH loc w urin obs/LUTS N40.1 Multiple myeloma C90.00 GERD (gastroesophageal reflux disease) K21.9 H/O bone marrow transplant Z94.81 Uric acid kidney stone N20.0
--- NOTE | 2023-03-14 12:45 | CT Scan Report ---
CT chest diagnostic wo con CLINICAL HISTORY: cp sob hx cryptococcal pna and PCP TECHNIQUE: Multidetector row helical CT of the chest was performed. Coronal and sagittal reformations were obtained. Automated dose lowering techniques and/or adjustment according to patient size were u tilized for this exam. CT DOSE: 757.19 mGy.cm Comparison: Comparison is made to CT chest 12/23/2022 FINDINGS: Lungs and pleura: Atelectasis versus scarring is seen in the dependent portions of the lungs. Interva l slight decrease in size of right-sided nodules. A 10 mm nodule in the right upper lobe previously m easured 11 mm. Irregular nodule in the left lower lobe measures 15 mm, previously 17 mm. Heart and pericardium: Heart size is normal. No pericardial effusion. Vessels: Severe atherosclerotic changes in the aorta and coronary arteries. Mediastinum and marion: Unremarkable. Chest wall and lower neck: A left port catheter is seen. Abdomen: Unremarkable. Bones: Degenerative changes in the thoracic spine. Multiple compression deformities are again seen in the thoracic spine. IMPRESSION: Interval slight decrease in size of bilateral pulmonary nodules compatible with improvement in this p atient with history of chronic infection.. ACT 112: Negative or not required by law. Electronically signed by: Bart Pace M.D. 03/14/2023 12:43 PM
[2023-03-14] MEDS ORDERED: ACYCLOVIR 400 MG TAB PO ONE (13:00)
[2023-03-14] MEDS ORDERED: CITALOPRAM 20 MG TAB PO ONE (13:00)
[2023-03-14] MEDS ORDERED: METOPROLOL TARTRATE 25 MG TAB PO ONE (13:00)
[2023-03-14] MEDS ORDERED: APIXABAN 5 MG TABLET PO ONE (13:00)
[2023-03-14] MEDS ORDERED: ACETAMINOPHEN 500 MG TAB PO PRN (15:46)
[2023-03-14] MEDS ORDERED: MONTELUKAST SODIUM 10 MG TABLET PO PRN (15:46)
[2023-03-14] MEDS ORDERED: POLYETHYLENE (MIRALAX) 17 GM PACK PO PRN (15:46)
[2023-03-14] MEDS ORDERED: LEVALBUTEROL TARTRATE 15 GM HFA.AER.AD INH PRN (15:46)
[2023-03-14] MEDS ORDERED: CYANOCOBALAMIN (B-12) 500 MCG TABLET PO SCH (15:46)
[2023-03-14] MEDS ORDERED: CETIRIZINE HCL 10 MG TABLET PO PRN (15:46)
[2023-03-14] MEDS ORDERED: HEPARIN 100 UNIT/ML 5ML FLUSH FLUSH PRN (17:26)
[2023-03-14] MEDS: APIXABAN 5 MG TABLET PO SCH (20:10)
[2023-03-14] MEDS: THIAMINE HCL 100 MG TAB PO SCH (20:11)
[2023-03-14] MEDS: ACYCLOVIR 400 MG TAB PO SCH (20:11)
[2023-03-14] MEDS: METOPROLOL TARTRATE 25 MG TAB PO SCH (20:12)
[2023-03-15 02:24] LABS: Basophils # (auto) 0.02 K/uL (0-0.2); Basophils % (auto) 0.2 %; Eosinophils # (auto) 0.23 K/uL (0-0.50); Eosinophils % (auto) 2.5 %; Hematocrit (blood only) 37.7 % (42.0-52.0); Hemoglobin 12.7 g/dl (14.0-18.0); Immature Granulocytes # (auto) 0.04 K/uL (0.01-0.20); Immature Granulocytes % (auto) 0.4 %; Lymphocytes # (auto) 0.73 K/uL (1.2-3.4); Lymphocytes % (auto) 7.8 %; Mean Corpuscular Hemoglobin 32.6 pg (25.0-34.0); Mean Corpuscular Hgb Conc 33.7 g/dL (32.0-36.0); Mean Corpuscular Volume 96.7 fL (80.0-100.0); Mean Platelet Volume 9.4 fL (9.4-12.4); Monocytes # (auto) 0.82 K/uL (0.11-0.59); Monocytes % (auto) 8.8 %; Neutrophils # (auto) 7.47 K/uL (1.40-6.50); Neutrophils % (auto) 80.3 %; Platelet Count 176 K/uL (130-400); RDW Coefficient of Variation 15.8 % (11.5-14.5); White Blood Count 9.31 K/ul (4.8-10.8)
[2023-03-15 02:39] LABS: Calcium 8.3 mg/dl (8.6-10.3); Creatinine Clr Calc Pharmacy 74.6 ml/min; Est GFR (African American) 83.8 ml/min; Est GFR (Non-African American) 72.3 ml/min; Potassium 3.8 mmol/L (3.5-5.1)
[2023-03-15] MEDS: APIXABAN 5 MG TABLET PO SCH (08:33)
[2023-03-15] MEDS: THIAMINE HCL 100 MG TAB PO SCH (08:34)
[2023-03-15] MEDS: METOPROLOL TARTRATE 25 MG TAB PO SCH (08:34)
[2023-03-15] MEDS: ACYCLOVIR 400 MG TAB PO SCH (08:34)
[2023-03-15] MEDS ORDERED: MAGNESIUM OXIDE 400 MG TAB PO SCH (09:00)
[2023-03-15] MEDS ORDERED: POTASSIUM CITRATE 10 MEQ TAB PO SCH (09:00)
[2023-03-15] MEDS ORDERED: TRIAMCINOLONE ACET 0.1% CR 15 GM TUBE TOP SCH (09:00)
[2023-03-15] MEDS ORDERED: FOLIC ACID 1 MG TAB PO SCH (09:00)
[2023-03-15] MEDS ORDERED: allopurinoL 100 MG TAB PO SCH (09:00)
[2023-03-15] MEDS ORDERED: FINASTERIDE 5 MG TAB PO SCH (09:00)
[2023-03-15] MEDS ORDERED: PANTOprazole 40 MG TAB PO SCH (09:00)
[2023-03-15] MEDS ORDERED: DOCUSATE SODIUM 100 MG CAP PO SCH (09:00)
[2023-03-15] MEDS ORDERED: FLUTICASONE/VILANTEROL 200/25MCG 14 PUFFS/INHALER INH SCH (09:00)
[2023-03-15] MEDS ORDERED: CITALOPRAM 20 MG TAB PO SCH (09:00)
--- NOTE | 2023-03-15 12:30 | XCELERA ---
[id number]
[2023-03-15] MEDS ORDERED: ATROPINE SULFATE 0.1 MG/ML 10ML SYR IV ONE (14:43)
[2023-03-15] MEDS ORDERED: METOPROLOL TARTRATE 1 MG/ML VIAL IV ONE (14:43)
--- NOTE | 2023-03-15 14:48 | Cardiology Consultation ---
Date of Consultation March 15, 2023 Assessment & Plan (1) Chest pain: (2) Paroxysmal atrial fibrillation: (3) Valvular heart disease: Plan 1. Chest pain: Patient's description of exertional chest pain is concerning. Certainly he has and demographic likely to have coronary disease. However, his symptoms are somewhat atypical and that they resolve with continued activity. No objective evidence of ischemia but the episodes of chest pain were quite short in nature. We will evaluate with dobutamine echocardiography. 2. Reported history of paroxysmal atrial fibrillation. He does describe occasional high heart rates in the remote past. None recently. Sinus rhythm currently. He will continue his systemic anticoagulation and metoprolol. 3. Valvular heart disease: He has an element of aortic regurgitation and mitral regurgitation. Not severe. This can be followed over time. History of Present Illness Reason for Consultation: Chest pain Requesting Physician: Fuentes Attending Physician: Андрей Butt MD History of Present Illness The patient is a 77-year-old gentleman without a known history of cardiac disease who presented to the hospital with symptoms of exertional chest discomfort and breathing difficulty. Patient states that he has been out feeling he and working hard. He does notice the presence of substernal chest discomfort occasionally when doing strenuous activity over the past 3 days. The symptoms last a few minutes and then resolved without any specific intervention. He states he does not stop his work or perform any other remedy but the symptoms resolve. He has not noticed similar symptoms with other kinds of activity. He has an element of mild dyspnea with significant activity. He is also limited by orthopedic disease. No symptoms at rest. He denies symptoms of dizziness or lightheadedness. No pleuritic chest discomfort. No discomfort since he has been in the hospital. He has not noticed any lower extremity edema. No history of orthopnea or paroxysmal nocturnal dyspnea. Allergies Allergy/AdvReac Type Severity Reaction Status Date / Time dexamethasone AdvReac Severe Hallucinati Verified 02/25/23 11:09 on prednisone AdvReac Severe hallucinati Verified 02/25/23 11:09 ons meclizine AdvReac Intermediate HALLUCINATI Verified 02/25/23 11:09 ON sulfamethoxazole AdvReac Intermediate Hallucinati Unverified 03/14/23 11:04 [From Bactrim] ng trimethoprim [From Bactrim] AdvReac Intermediate Hallucinati Unverified 03/14/23 11:04 ng hydrocodone AdvReac Mild AGITATION Verified 02/25/23 11:09 levofloxacin [From Levaquin] AdvReac Mild muscle Verified 02/25/23 11:09 weakness lisinopril AdvReac Mild Dizziness Verified 02/25/23 11:09 Home Medications Medication Instructions Recorded Confirmed Type acetaminophen 500 mg tablet 1,000 mg PO Q8 PRN Fever Or Pain 06/28/18 03/14/23 History (Acetaminophen Extra Strength) daratumumab 20 mg/mL intravenous 0 mg IV MONTHLY 06/28/18 03/14/23 History solution polyethylene glycol 3350 17 17 g PO DAILY PRN Constipation 06/28/18 03/14/23 History gram/dose oral powder (Miralax) acyclovir 400 mg tablet 400 mg PO BID 08/02/18 03/14/23 History citalopram 10 mg tablet 10 mg PO QAM 04/25/19 03/14/23 History zoledronic acid 4 mg/5 mL 0 mg IV .Q 3 MONTHS 04/25/19 03/14/23 History intravenous solution levalbuterol tartrate 45 1 puffs inhalation Q6H PRN 12/05/19 03/14/23 Rx mcg/actuation aerosol inhaler shortness of breath #15 grams montelukast 10 mg tablet 10 mg PO MONTHLY PRN Allergy 07/25/20 03/14/23 History (Singulair) Symptoms ergocalciferol (vitamin D2) 1,250 50,000 unit PO Q7D@0800 #30 caps 04/03/22 03/14/23 Rx mcg (50,000 unit) capsule folic acid 1 mg tablet 1 mg PO QAM #30 tabs 04/03/22 03/14/23 Rx magnesium oxide 400 mg (241.3 mg 400 mg PO QAM #30 tabs 04/03/22 03/14/23 Rx magnesium) tablet metoprolol tartrate 25 mg tablet 25 mg PO BID #60 tabs 04/03/22 03/14/23 Rx pantoprazole 40 mg tablet,delayed 40 mg PO DAILY #30 tabs 04/03/22 03/14/23 Rx release thiamine HCl (vitamin B1) 100 mg 200 mg PO BID #60 tabs 04/03/22 03/14/23 Rx tablet dutasteride 0.5 mg capsule 0.5 mg PO QAM #90 caps 06/16/22 03/14/23 Rx cetirizine 10 mg tablet (Zyrtec) 10 mg PO BID PRN Allergy Symptoms 10/29/22 03/14/23 History docusate sodium 100 mg capsule 100 mg PO DAILY 10/29/22 03/14/23 History (Colace) cyanocobalamin (vitamin B-12) 500 1,000 mcg PO Q OTHER DAY 11/03/22 03/14/23 History mcg tablet triamcinolone acetonide 0.1 % 1 applic topical DAILY 11/03/22 03/14/23 History topical cream Breo Ellipta 200 mcg-25 mcg/dose 1 inh inhalation QAM #60 ea 12/24/22 03/14/23 Rx powder for inhalation (fluticasone furoate-vilanterol) apixaban 5 mg tablet (Eliquis) 5 mg PO BID #180 tabs 01/07/23 03/14/23 Rx potassium citrate 10 mEq (1,080 2,160 mg PO DAILY #90 tabs 02/25/23 03/14/23 Rx mg) tablet,extended release Patient History Medical History (HFpEF) heart failure with preserved ejection fraction Anemia BASELINE 8-9 RANGE BPH loc w urin obs/LUTS Calculus of kidney Cancer MULTIPLE MYELOMA (DX'D 2015); stem cell transplant, chemo Cryptococcal pneumonitis 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 Depression GERD (gastroesophageal reflux disease) Gout History of nephrolithiasis History of pneumothorax 2019 with lung biopsy History of pulmonary embolism [place] (hard of hearing) Irregular heartbeat 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 Port-A-Cath in place Left chest Pulmonary embolism 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); 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 SOB (shortness of breath) on exertion Thrombocytopenia Tremor Surgical History Bone marrow replaced by transplant History of cataract surgery RT History of chest tube placement History of lung biopsy benign Family History Father Cardiac disorder Heart disease Mother Cancer Stroke Other No family history of adverse response to anesthesia Social History Smoking Status: Never smoker Second Hand Exposure: No; Do You Dip or Chew Tobacco: No; Hx Alcohol Use: No Hx Substance Use: No Preferred Language: Indonesian Communication Ability: Effective Communication Ability Comment: hard of hearing Visual Impairment: No Limitations 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 Mood and affect appeared normal. He answered all questions appropriately. HEENT: Pupils are equal and reactive to light and accommodation. Extraocular movements are intact. The sclerae are anicteric. Neuro: Cranial nerves intact Lungs: Clear to auscultation bilaterally. He has good air movement without use of accessory muscles. No rales wheezes or rhonchi. Cardiac: Heart demonstrates a regular rate and rhythm. Normal S1 and S2. No murmurs on examination. Pulses: The patient has palpable radial pulses bilaterally that are equal in intensity Extremities: There was no evidence of hypoperfusion. There is no cyanosis or clubbing. There is no edema. Skin: I did not appreciate any rashes on examination today. Results & Data Vital Signs (Past 12 Hours) Vital Signs Temp Pulse Pulse Resp BP BP Pulse Ox 03/15/23 11:59 36.5 C 73 20 170/82 H 93 03/15/23 08:02 36.8 C 81 18 157/86 H 95 03/15/23 07:25 77 O2 Del Method 03/15/23 11:59 Room Air 03/15/23 08:02 Room Air 03/15/23 07:25 Laboratory Results Abnormal Lab Results 03/14/23 03/14/23 03/15/23 17:21 19:54 02:09 WBC RBC Hgb Hct MCV MCH MCHC RDW Std Deviation RDW Coeff of Eyal Plt Count MPV Immature Gran % (Auto) Neut % (Auto) Lymph % (Auto) Swisher % (Auto) Eos % (Auto) Baso % (Auto) Neut # (Auto) Lymph # (Auto) Swisher # (Auto) Eos # (Auto) Baso # (Auto) Immature Gran # (Auto) Sodium Potassium Chloride Carbon Dioxide Anion Gap BUN Creatinine Est Cr Clr Drug Dosing Est GFR ( Amer) Est GFR (Non-Af Amer) BUN/Creatinine Ratio Glucose Calcium Troponin I High Sens 8.7 8.0 8.7 03/15/23 03/15/23 03/15/23 02:09 02:09 07:50 WBC 9.31 RBC 3.90 L Hgb 12.7 L Hct 37.7 L MCV 96.7 MCH 32.6 MCHC 33.7 RDW Std Deviation 56.0 H RDW Coeff of Eyal 15.8 H Plt Count 176 MPV 9.4 Immature Gran % (Auto) 0.4 Neut % (Auto) 80.3 Lymph % (Auto) 7.8 Swisher % (Auto) 8.8 Eos % (Auto) 2.5 Baso % (Auto) 0.2 Neut # (Auto) 7.47 H Lymph # (Auto) 0.73 L Swisher # (Auto) 0.82 H Eos # (Auto) 0.23 Baso # (Auto) 0.02 Immature Gran # (Auto) 0.04 Sodium 141 Potassium 3.8 Chloride 108 H Carbon Dioxide 27 Anion Gap 6 BUN 21 Creatinine 1.00 Est Cr Clr Drug Dosing 74.6 Est GFR ( Amer) 83.8 Est GFR (Non-Af Amer) 72.3 BUN/Creatinine Ratio 21.0 H Glucose 89 Calcium 8.3 L Troponin I High Sens 8.8 Diagnostic Findings Echocardiogram performed today revealed normal LV systolic function with ejection fraction 55-60%. Mild LVH. Moderate aortic sclerosis. Mild to moderate aortic regurgitation. Mild mitral regurgitation. Chest x-ray obtained the time admission suggested a possible small left pleural effusion. Chest CT did not demonstrate pleural effusion. Some pulmonary nodules which are chronic in nature. ECG Additional Comments: EKG demonstrated normal sinus rhythm with left axis deviation. PG Care Time/CCT Total # of Minutes Spent Total Time Spent with Patient: Total time spent is greater than 50% in coordination of care (as documented) at patient's floor/unit and/or counseling patient: Coding Level of Care Code 33023 INT INP/OBS CARE 3/75MIN Diagnoses Chest pain R07.9 Chest pain type: unspecified Paroxysmal atrial fibrillation I48.0 Valvular heart disease I38 (1) Chest pain Chest pain type: unspecified Qualified Code(s): R07.9 - Chest pain, unspecified
--- NOTE | 2023-03-15 15:25 | Discharge Summary ---
Date of Service March 15, 2023 Admission HPI Per Admitting Provider p/w chest pain x1 day. Got better, came back at 4am then improved. Each episode lasted >1 hour. 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 No acute rash Bruising from eliquis Per patient on and off pressure in the center chest last night 2-3am had another episode that woke him from sleep Episodes lasted 'a while, werent no 10-20 second episodes, more like 2-3 minutes'. No episode lasting >20 minutes. Took a few tylenol and pain seemed to get better but did not go away. Called EMS and was put on oxygen. When he was on oxygen the pain went away completely and was brought in to the ER. Had a chemo treatment this past wednesday and usually takes it easy for a few days. has had diarrhea 2-3 days which is normal. No prior chest pain. Does endores a history of intermittent chest pressure. I sa kelly and maximilian lee and endorses that he does get soem chest pressure and shortness of breath in the lst month. Normally had shortness of breath but chest pressure is new. 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 Father with PA at age 53. 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 On Darzalex SQ monthly, last was this past (was off for 4 months due to ra sh from the other form) IVIG infusions stopped due to rash. Has been a while, less than 6 months but doesn't remember exactly. Still using Breo every morning. Hasn't tapered, noticed more wheezing with hay and dust and hasn't wanted to taper yet Eliquis BID still did not take any meds this morning. Medical History: Reviewed Medications: Reviewed Surgical History: Reviewed Family history: Reviewed Allergies: Reviewed Social History: no tobacco or etoh Code Status: DNR/DNI Principal Diagnosis Noncardiac chest pain Discharge Exam General-alert and oriented x3, no fevers, no chills HEENT-head atraumatic and normocephalic, pupils equal and reactive to light, extraocular muscles intact Neck-no lymphadenopathy or thyromegaly, trachea midline Chest-clear to auscultation percussion. No rales wheezing or rhonchi Cardiac-regular rate and rhythm, normal S1 and S2 Abdomen-normal bowel sounds, nontender, no hepatosplenomegaly Extremities-no cyanosis, clubbing, or edema Neuro-cranial nerves II through XII intact, motor and sensory function within normal limits, strength symmetrical , no focal deficits Psych-normal affect, normal mood Discharge Data Allergies Allergy/AdvReac Type Severity Reaction Status Date / Time dexamethasone AdvReac Severe Hallucinati Verified 02/25/23 11:09 on prednisone AdvReac Severe hallucinati Verified 02/25/23 11:09 ons meclizine AdvReac Intermediate HALLUCINATI Verified 02/25/23 11:09 ON sulfamethoxazole AdvReac Intermediate Hallucinati Unverified 03/14/23 11:04 [From Bactrim] ng trimethoprim [From Bactrim] AdvReac Intermediate Hallucinati Unverified 03/14/23 11:04 ng hydrocodone AdvReac Mild AGITATION Verified 02/25/23 11:09 levofloxacin [From Levaquin] AdvReac Mild muscle Verified 02/25/23 11:09 weakness lisinopril AdvReac Mild Dizziness Verified 02/25/23 11:09 Consultations 03/14/23 10:34 ED Decision to Admit Stat 03/14/23 15:46 Consult Cardiology Routine Ordered Studies 03/14/23 10:47 CT chest diagnostic wo con Stat Hospital Course (1) Chest pain: Resolved. Troponin series unremarkable. Cardiology consultation appreciated. Dobutamine stress echo completed todayMarch 15, with negative results. The chest discomfort appears to be of noncardiac etiology trictive lung disease, chronic without acute exacerbation (2) Paroxysmal atrial fibrillation: Currently normal sinus rhythm. Telemetry. Continue current medical management (3) History of pulmonary embolism: Stable. Continue current medical management (4) BPH loc w urin obs/LUTS: Stable. Continue current medical management (5) Multiple myeloma: Stable. No intervention necessary at this time (6) GERD (gastroesophageal reflux disease): Stable. Continue current medical management (7) H/O bone marrow transplant: For multiple myeloma. Stable. No intervention necessary at this time Plan Discharge to home todayMarch 16 Total Time Total Time Spent Total Time Spent (In Minutes): 40 minutes Discharge Plan Discharge Items Patient Disposition: Home - Self-Care Reason For Visit: CHEST PAIN Discharge Diagnosis: Noncardiac chest pain Activity: Resume your previous activity Non-emergency contact: Primary Care Provider Call non-emergency contact if: your symptoms worsen Follow-up/Referrals: Corazon Vargas MD [Primary Care Provider] - Diet: Regular and Heart Healthy Addtl Attending Provider Instructions: All medications remain the same Pending Studies at Discharge: No Stand-Alone Forms: [facility] [employer], Smoking Cessation Medications and DC Order Prescriptions: Continued acetaminophen [Acetaminophen Extra Strength] 500 mg Tablet 1,000 mg PO Q8 PRN (Reason: Fever Or Pain) polyethylene glycol 3350 [Miralax] 17 gram/dose Powder 17 g PO DAILY PRN (Reason: Constipation) Rx Instructions: PRN daratumumab 20 mg/mL Solution 0 mg IV MONTHLY Rx Instructions: per he had 3rd treatment this past week Monthly at [facility] center via IV. On hold docusate sodium [Colace] 100 mg capsule 100 mg PO DAILY cetirizine [Zyrtec] 10 mg tablet 10 mg PO BID PRN (Reason: Allergy Symptoms) dutasteride 0.5 mg capsule 0.5 mg PO QAM Qty: 90 3RF fluticasone furoate-vilanterol [Breo Ellipta] 200-25 mcg/dose blister with device 1 inh INHALATION QAM Qty: 60 5RF Eliquis 5 mg tablet 5 mg PO BID Qty: 180 1RF cyanocobalamin (vitamin B-12) 500 mcg tablet 1,000 mcg PO Q OTHER DAY triamcinolone acetonide 0.1 % cream 1 applic topical DAILY potassium citrate 10 mEq (1,080 mg) tablet extended release 2,160 mg PO DAILY Qty: 90 2RF Rx Instructions: just started a week ago per levalbuterol tartrate 45 mcg/actuation HFA aerosol inhaler 1 puffs INH Q6H PRN (Reason: shortness of breath) Qty: 15 1RF Rx Instructions: PRN acyclovir 400 mg Tablet 400 mg PO BID montelukast [Singulair] 10 mg tablet 10 mg PO MONTHLY PRN (Reason: Allergy Symptoms) Rx Instructions: Pre chemo the night before monthly chemo treatments citalopram 10 mg tablet 10 mg PO QAM zoledronic acid 4 mg/5 mL Solution 0 mg IV .Q 3 MONTHS thiamine HCl (vitamin B1) 100 mg Tablet 200 mg PO BID Qty: 60 0RF magnesium oxide 400 mg (241.3 mg magnesium) Tablet 400 mg PO QAM Qty: 30 0RF pantoprazole 40 mg Tablet,Delayed Release (Dr/Ec) 40 mg PO DAILY Qty: 30 0RF folic acid 1 mg Tablet 1 mg PO QAM Qty: 30 0RF ergocalciferol (vitamin D2) 1,250 mcg (50,000 unit) Capsule 50,000 unit PO Q7D@0800 Qty: 30 0RF metoprolol tartrate 25 mg Tablet 25 mg PO BID Qty: 60 0RF Discharge Orders: Discharge Order (Routine); Ordered 03/15/23 Ordered By: Андрей Butt Admission Data Admit Date/Time: 03/14/23 11:35 Attending Provider: Андрей Butt Admit Provider: Albert Dill Primary Care Provider: Corazon Vargas Other Providers: Albert Dill ; Saman Vasquez Coding Level of Care Code 06381 INP/OBS DISCH >30 MIN Diagnoses Chest pain R07.9 Chest pain type: unspecified Paroxysmal atrial fibrillation I48.0 History of pulmonary embolism Z86.711 BPH loc w urin obs/LUTS N40.1 Multiple myeloma C90.00 GERD (gastroesophageal reflux disease) K21.9 H/O bone marrow transplant Z94.81
--- NOTE | 2023-03-15 16:36 | Electrocardiogram Report ---
Test Reason : Blood Pressure : / mmHG Vent. Rate : 078 BPM Atrial Rate : 078 BPM P-R Int : 130 ms QRS Dur : 098 ms QT Int : 390 ms P-R-T Axes : 038 -45 029 degrees QTc Int : 444 ms Normal sinus rhythm Left axis deviation Minimal voltage criteria for LVH, may be normal variant Abnormal ECG When compared with ECG of 29-MAR-2022 12:49, Nonspecific T wave abnormality no longer evident in Lateral leads Confirmed by Saman Vasquez ([id number]) on 03/15/2023 4:35:52 PM Referred By: REFERRED SELF Confirmed By:Chucho Vasquez
--- NOTE | 2023-03-15 17:29 | XCELERA ---
[id number]
--- NOTE | 2023-03-15 18:04 | Electrocardiogram Report ---
Test Reason : Blood Pressure : / mmHG Vent. Rate : 073 BPM Atrial Rate : 073 BPM P-R Int : 156 ms QRS Dur : 096 ms QT Int : 404 ms P-R-T Axes : 045 -44 -01 degrees QTc Int : 445 ms Normal sinus rhythm with sinus arrhythmia Left axis deviation Moderate voltage criteria for LVH, may be normal variant Abnormal ECG When compared with ECG of 14-MAR-2023 09:21, (unconfirmed) No significant change was found Confirmed by Saman Vasquez ([id number]) on 03/15/2023 6:04:10 PM Referred By: REFERRED SELF Confirmed By:Chucho Vasquez
[2023-03-21] MEDS ORDERED: ERGOCALCIFEROL 50,000 UNITS 1250 MCG CAP PO SCH (08:00)
== END 2023-03-15 17:26 | disposition home or self-care (01) | DRG 206 ==
LOC: ED 09:15 → INTOOBSV 11:35 → SUATTDRO 11:35 → 2W 11:35

== ENCOUNTER 2024-07-06 08:47 | Inpatient (IN) ==
[2024-07-06 09:16] LABS: Base Excess VBG -3.9 mEq/L; HCO3 VBG 21 mmol/L; Oxygen Saturation VBG < 60.0 %; PCO2 VBG 36 mmHg (38-50); PO2 VBG 34 mmHg; pH VBG 7.37 (7.36-7.41)
[2024-07-06 09:20] LABS: iSTAT Creatinine 1.2 mg/dl (0.6-1.3); iSTAT Hemoglobin 14.3 g/dl (14.0-18.0); iSTAT Ionized Calcium 1.15 mmol/l (1.12-1.32); iSTAT Potassium 3.8 mmol/L (3.3-5.0)
[2024-07-06] MEDS: ACETAMINOPHEN 1,000 MG/100 ML VIAL IV STA (09:20)
[2024-07-06 09:24] LABS: Hematocrit (blood only) 42.8 % (42.0-52.0); Mean Corpuscular Hgb Conc 32.7 g/dL (32.0-36.0); Mean Corpuscular Volume 94.7 fL (80.0-100.0); Mean Platelet Volume 9.5 fL (9.4-12.4); Platelet Count 149 K/uL (130-400); RDW Coefficient of Variation 14.7 % (11.5-14.5); RDW Standard Deviation 51.4 fL (36.4-46.3); Red Blood Count 4.52 M/uL (4.70-6.10); White Blood Count 11.57 K/ul (4.8-10.8)
--- NOTE | 2024-07-06 09:24 | XRay Report ---
SINGLE VIEW CHEST CLINICAL HISTORY: Fever. Hypoxia. FINDINGS: 2 AP, portable, upright chest radiograph are compared to study dated 03/14/2023 and correlat ed with chest CT dated 03/14/2024. The examination is degraded by portable technique, apical lordotic positioning, and patient rotation. A left internal jugular central venous infusion port is unchanged in position. The heart is enlarged. The pulmonary vasculature is noncongested. Chronic interstitial t hickening is previous. There is bibasilar scarring/atelectasis. No airspace consolidation or large pl eural effusion is identified. No pneumothorax is seen. The skeletal structures are osteopenic. There are chronic/healed left-sided rib fractures. Degenerative change is noted in the shoulders and spine. IMPRESSION: Cardiomegaly with no acute cardiopulmonary abnormality identified. ACT 112: Negative or not required by law. Electronically signed by: London Sagastume M.D. 07/06/2024 9:23 AM
[2024-07-06 09:37] LABS: Albumin Globulin Ratio 1.9 (0.9-2); Albumin Level 3.8 gm/dl (3.4-5.0); BUN Creatinine Ratio 16.8 (10-20); Bilirubin,Total 0.6 mg/dl (0.2-1.0); Calcium 8.6 mg/dl (8.6-10.3); Creatinine Clr Calc Pharmacy 56.4 ml/min; Magnesium 1.4 mg/dl (1.7-2.4); Potassium 3.9 mmol/L (3.5-5.1); Total Protein 5.8 gm/dl (6.0-8.3)
[2024-07-06 09:45] LABS: Basophils # (auto) 0.04 K/uL (0.00-0.20); Basophils % (auto) 0.3 %; Eosinophils # (auto) 0.09 K/uL (0.00-0.50); Eosinophils % (auto) 0.8 %; Immature Granulocytes % (auto) 0.9 %; Lymphocytes % (auto) 2.6 %; Monocytes # (auto) 0.06 K/uL (0.11-0.59); Monocytes % (auto) 0.5 %; Neutrophils # (auto) 10.98 K/uL (1.40-6.50); Neutrophils % (auto) 94.9 %
[2024-07-06 09:47] LABS: Prothrombin Time 10.9 Seconds (9.0-12.0)
[2024-07-06 10:04] LABS: Troponin I High Sensitivity 516.2 pg/ml (0-20)
--- NOTE | 2024-07-06 10:06 | CT Scan Report ---
CT SCAN OF THE BRAIN WITHOUT IV CONTRAST CLINICAL HISTORY: Change in mental status. COMPARISON STUDY: CT of the brain dated 03/20/2022. TECHNIQUE: Unenhanced axial CT scan of the brain is performed from the vertex to the skull base. A do se lowering technique was utilized adhering to the principles of ALARA. FINDINGS: Brain parenchyma: There is age-related involutional change noting [id number] subcortical and pe riventricular microangiopathic disease. There is no hemorrhage, mass effect, or evidence of acute ter ritorial ischemia by CT criteria. Walters-white matter differentiation is preserved. No extra-axial flui d collection is seen. Ventricles, sulci, cisterns: Prominent secondary to involutional change. Intracranial vasculature: There is atherosclerotic calcification of the cavernous carotid and vertebr al arteries. Calvarium: Unremarkable. Sinuses and mastoids: There is trace mucosal thickening in the right maxillary antrum. The remaining visualized paranasal sinuses are clear. The mastoid air cells are well pneumatized. Orbits: The bony orbits are grossly intact. There are bilateral ocular lens implants. IMPRESSION: There is no hemorrhage, mass effect, or evidence of acute territorial ischemia by CT frankie villa. ACT 112: Negative or not required by law. Electronically signed by: London Sagastume M.D. 07/06/2024 10:05 AM
--- NOTE | 2024-07-06 10:11 | Emergency Department Note ---
Impression & Plan Sepsis, Bone marrow replaced by transplant, Elevated troponin, Weakness, Multiple myeloma ED Provider Note Provider: Hermann Obrien MD DATE OF SERVICE: 07/06/2024 CHIEF COMPLAINT: Fever, shortness of breath, confusion HISTORY OF PRESENT ILLNESS: Patient is a 79-year-old gentleman extensive past medical history including multiple myeloma status post him cell transplant 2016, paroxysmal A-fib on Eliquis, heart failure, BPH, PJP pneumonia and cryptococcus infection previously presenting here via ambulance from his home. Erika report the patient had a fever this morning and was having breathing issues. Found to be hypoxic into the 80s by EMS. Placed on oxygen. EMS noted the patient be severely tachycardic in the 170s and 180s. They provided 6 mg and then 12 mg of adenosine which transiently lowers heart rate. Patient upon arrival here is able to tell me his name but not a lot of details. Denies pain. Does state he is maybe a little short of breath. Denies headache or chest pain specifically. States he does need to urinate. Family states that patient was just having chills this morning and felt cold. They tried to warm up but he did not seem to be doing well and well initially resisted going to the hospital later was agreeable. PAST MEDICAL HISTORY: As noted above MEDICATIONS: Reviewed home medication list in the computer. SOCIAL HISTORY: Resides at home by report PHYSICAL EXAM: GENERAL: alert and oriented to person not well to history, occasionally reaching out required some redirection. Head: normocephalic and atraumatic EYES: No injection, discharge or icterus. PERRL, EOMI. NECK: Trachea midline. Supple. ENT: Mucous membranes pink and moist. LUNGS: Airway patent. No retractions. Breath sounds clear HEART: Regular tachycardic rate and rhythm. No chest wall tenderness ABDOMEN: Soft and non-tender, without guarding or rebound. SKIN: Acyanotic, warm, dry, without rashes EXTREMITIES: Trace 1+ lower extremity edema. No tenderness or deformity. NEUROLOGICAL: No focal deficits moving all extremity no aphasia. No facial droop. Not able to tell me a real clear history of what is going on but does know his name. EK bpm sinus tachycardia. No PVC or PAC. No clear acute ST segment elevation with a QTc of 445. Left anterior fascicular block noted. CONTINUOUS CARDIAC MONITORING: was ordered and showed a heart rate of 90-150s bpm in sinus tachycardia to normal sinus rhythm Patient's laboratory studies and imaging reviewed. Differential includes Infection, pneumonia, dehydration, metabolic abnormality, hypo/hyperglycemia, electrolyte disturbance, anemia, hypoxia, cardiac sources, intracerebral event, toxicologic, neurologic, as well as other pathologies. IMPRESSION/MEDICAL DECISION MAKING: Limited history available from the patient. Does require some redirection but is able to tell me his name and move purposefully. Does not appear obtunded. VBG without evidence of hypercarbia or acidosis. Mild leukocytosis 11.5. Records indicate the patient is on Eliquis. Lower suspicion for VTE with this. Chest x-ray without obvious evidence of pneumonia or pneumothorax. Is on 2 L oxygen supplement. Heart rate is elevated in the 140s. Received a liter of IV fluid prior to arrival. De-escalated from nonrebreather prior to arrival and again seems to be tolerating 2 L well satting in the mid 90s. Will cover empirically given his prior history with cefepime. Lactate is elevated 3.8 initially troponin elevated 516. Seems likely demand. No evidence of acute STEMI on EKG. Does not appear to be in SVT or significant arrhythmia beyond sinus tachycardia here. No significant electrolyte abnormality or signs of renal dysfunction other than some mild hypomagnesemia. Note is acute hepatitis or pancreatitis. Respiratory viral panel procalcitonin sent. Will obtain a CT of the head given his confusion use of anticoagulation as well as a CT of the chest for further differentiation given his complex past pulmonary history. Does not seem to have neck stiffness and lower suspicion for meningitis. IV Tylenol given for fever. Given a liter of IV fluid prior to arrival and will give 250 mL of normal saline here but will hold off on additional given history of heart failure. Mentation improving. Family later arrived and state the patient is looking better. Had some chills earlier. Blood cultures are sent. Empirically covered with cefepime as no clear source at this point. CT head and CT chest without clear significant new acute findings to explain symptoms. Fevers improving and heart rate improving. Minimal oxygen requirement now. Discussed with family over again for further care and evaluation. Sepsis unknown origin. Again of avoiding additional large IV fluid boluses given his improving lactate and history of heart failure. Discussed with the hospitalist team. DIAGNOSIS: Sepsis, weakness, elevated troponin DISPOSITION: Hospitalist will evaluate Patient was agreeable with this plan. Critical Care I have personally spent 33 minutes of critical care time in the direct management of this patient. This includes bedside care, interpretation of diagnostic studies, and testing, discussion with consultants, patient, and family members, and other required patient management activities. These 33 minutes is in excess of all separately billable procedures. Past Med/Surg History Problem List (Updated 07/06/24 @ 12:36 by Shira Mobley PA-C) Acute respiratory failure with hypoxemia SIRS (systemic inflammatory response syndrome) Multiple myeloma (Acute) Weakness (Acute) Elevated troponin (Acute) Sepsis (Acute) Chest pain (Acute) Multiple pulmonary nodules Parapelvic renal cyst Microscopic hematuria Pneumocystis carinii pneumonia Abnormal chest CT Exertional shortness of breath Thiamine deficiency Folate deficiency Acute maxillary sinusitis Hypokalemia Hypomagnesemia Pneumonia COVID-19 Metabolic acidosis Vitamin D deficiency Confusion Fall Acute renal failure PCP (pneumocystis jiroveci pneumonia) Muscle weakness (generalized) Fatigue Cryptococcal pneumonitis (Acute) Hypoxia (Acute) Pulmonary infiltrate present on computed tomography (Acute) Acute encephalopathy Abnormal chest CT B12 deficiency Acute respiratory failure with hypoxia Diarrhea Hypokalemia Cryptococcal pneumonitis Gout Current use of exterminator termite anticoagulation (Chronic) Calculus of kidney (HFpEF) heart failure with preserved ejection fraction Light chain myeloma (Acute) Acute appendicitis (Acute) Acute appendicitis Metastatic malignant neoplasm of unknown primary site (Acute) Elevated troponin Left shoulder pain (Acute) Rash (Acute) Depression Cancer MULTIPLE MYELOMA (DX'D 2015); stem cell transplant, chemo Osteoporosis 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 Bone marrow replaced by transplant (Acute) SOB (shortness of breath) on exertion Thrombocytopenia Anemia BASELINE 8-9 RANGE Elevated prostate specific antigen (PSA) Sepsis associated hypotension Diastolic dysfunction Abnormal urine finding Encounter for pre-operative examination Pneumonia (Acute) Fever (Acute) Shortness of breath (Acute) Acute UTI (Acute) Medical History (HFpEF) heart failure with preserved ejection fraction Anemia BASELINE 8-9 RANGE BPH loc w urin obs/LUTS Calculus of kidney Cancer MULTIPLE MYELOMA (DX'D 2015); stem cell transplant, chemo Cryptococcal pneumonitis Current use of mcfp anticoagulation Depression GERD (gastroesophageal reflux disease) Gout History of nephrolithiasis History of pneumothorax 2019 with lung biopsy History of pulmonary embolism [place] (hard of hearing) Irregular heartbeat 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 Port-A-Cath in place Left chest Pulmonary embolism 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); 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 SOB (shortness of breath) on exertion Thrombocytopenia Tremor Surgical History Bone marrow replaced by transplant History of cataract surgery RT History of chest tube placement History of lung biopsy benign Family History Father Cardiac disorder Heart disease Mother Cancer Stroke Other No family history of adverse response to anesthesia Social History Smoking Status: Never smoker Second Hand Exposure: No; Do You Dip or Chew Tobacco: No; Hx Alcohol Use: No Hx Substance Use: No Preferred Language: Kittitian Communication Ability: Effective Communication Ability Comment: hard of hearing Visual Impairment: No Limitations Hand Heel Seat Fitter Required: No Beliefs That Will Affect Care: None marital status: Current Living Situation: Spouse current occupational status: retired How many Children do You have: 0 Feels Safe at Home: Yes Diet: regular during the past year weight has: remained stable Assistive Devices: None Allergies Allergies Allergy/AdvReac Type Severity Reaction Status Date / Time dexamethasone AdvReac Severe Hallucinati Verified 07/06/24 11:32 on prednisone AdvReac Severe hallucinati Verified 07/06/24 11:32 ons meclizine AdvReac Intermediate HALLUCINATI Verified 07/06/24 11:32 ON sulfamethoxazole AdvReac Intermediate Hallucinati Verified 07/06/24 11:32 [From Bactrim] ng trimethoprim [From Bactrim] AdvReac Intermediate Hallucinati Verified 07/06/24 11:32 ng hydrocodone AdvReac Mild AGITATION Verified 07/06/24 11:32 levofloxacin [From Levaquin] AdvReac Mild muscle Verified 07/06/24 11:32 weakness lisinopril AdvReac Mild Dizziness Verified 07/06/24 11:32 Home Meds Home Medications Medication Instructions Recorded Confirmed acetaminophen 500 mg tablet 1,000 mg PO Q8 PRN Fever Or Pain 06/28/18 03/16/24 (Acetaminophen Extra Strength) polyethylene glycol 3350 17 17 g PO DAILY PRN Constipation 06/28/18 03/16/24 gram/dose oral powder (Miralax) acyclovir 400 mg tablet 400 mg PO BID 08/02/18 03/16/24 citalopram 10 mg tablet 10 mg PO QAM 04/25/19 03/16/24 montelukast 10 mg tablet 10 mg PO MONTHLY PRN Allergy 07/25/20 03/16/24 (Singulair) Symptoms docusate sodium 100 mg capsule 100 mg PO DAILY 10/29/22 03/16/24 (Colace) cyanocobalamin (vitamin B-12) 500 1,000 mcg PO Q OTHER DAY 11/03/22 03/16/24 mcg tablet triamcinolone acetonide 0.1 % 1 applic topical DAILY 11/03/22 03/16/24 topical cream cetirizine 10 mg tablet (Zyrtec) 10 mg PO DAILY PRN Allergy Symptoms 07/28/23 03/16/24 daratumumab 20 mg/mL intravenous See Rx Instructions IV MONTHLY 07/28/23 03/16/24 solution dexamethasone 4 mg tablet 4 mg PO DAILY PRN 03/21/24 03/21/24 pantoprazole 40 mg tablet,delayed 20 mg PO DAILY 03/21/24 03/21/24 release Previous Rx's Medication Instructions Recorded levalbuterol tartrate 45 1 puffs inhalation Q6H PRN 12/05/19 mcg/actuation aerosol inhaler shortness of breath #15 grams ergocalciferol (vitamin D2) 1,250 50,000 unit PO Q7D@0800 #30 caps 04/03/22 mcg (50,000 unit) capsule folic acid 1 mg tablet 1 mg PO QAM #30 tabs 04/03/22 magnesium oxide 400 mg (241.3 mg 400 mg PO QAM #30 tabs 04/03/22 magnesium) tablet metoprolol tartrate 25 mg tablet 25 mg PO BID #60 tabs 04/03/22 thiamine HCl (vitamin B1) 100 mg 200 mg (2 x 100 mg) PO BID #60 tabs 04/03/22 tablet Breo Ellipta 200 mcg-25 mcg/dose 1 inh inhalation QAM #60 ea 12/13/23 powder for inhalation (fluticasone furoate-vilanterol) dutasteride 0.5 mg capsule 0.5 mg PO QAM #90 caps 03/02/24 potassium citrate 10 mEq (1,080 1,080 mg PO DAILY 90 days #90 tabs 03/02/24 mg) tablet,extended release apixaban 5 mg tablet (Eliquis) 5 mg PO BID #180 tabs 07/03/24 Results & Data (ED) Vital Signs Vital Signs - 24 hr 07/06/24 08:50 07/06/24 08:53 07/06/24 08:55 Temperature 38.9 C H Temperature Source Oral Pulse Rate 145 H Pulse Rate [Apical] Pulse Rate from SpO2 Sensor Respiratory Rate Respiratory Effort / Characteristics Spontaneous Respiratory Depth Respiratory Pattern Blood Pressure 163/110 H 163/110 H Blood Pressure [Right Arm] Blood Pressure Mean 112 127 Blood Pressure Mean [Right Arm] Pulse Oximetry 87 L 95 Oxygen Delivery Method Room Air Nasal Cannula Oxygen Flow Rate 2 Sepsis Recent Fever Within 48 Hours Yes Sepsis New/Unexplained Change in Mental Status Yes Sepsis Action Taken by Nursing Physician Notified 07/06/24 08:55 07/06/24 09:18 07/06/24 09:22 Temperature Temperature Source Pulse Rate 143 H 121 H Pulse Rate [Apical] 128 H Pulse Rate from SpO2 Sensor Respiratory Rate 32 H 26 H Respiratory Effort / Characteristics Respiratory Depth Respiratory Pattern Regular Blood Pressure 123/82 Blood Pressure [Right Arm] 183/126 H Blood Pressure Mean 103 Blood Pressure Mean [Right Arm] 145 Pulse Oximetry 94 93 Oxygen Delivery Method Nasal Cannula Nasal Cannula Oxygen Flow Rate 4 4 Sepsis Recent Fever Within 48 Hours Sepsis New/Unexplained Change in Mental Status Sepsis Action Taken by Nursing 07/06/24 09:39 07/06/24 10:00 07/06/24 10:04 Temperature 36.8 C Temperature Source Oral Pulse Rate 122 H 114 H Pulse Rate [Apical] 116 H Pulse Rate from SpO2 Sensor 121 H 115 H Respiratory Rate 29 H 28 H 20 Respiratory Effort / Characteristics Respiratory Depth Normal Respiratory Pattern Blood Pressure Blood Pressure [Right Arm] 128/85 Blood Pressure Mean Blood Pressure Mean [Right Arm] 99 Pulse Oximetry 95 94 94 Oxygen Delivery Method Nasal Cannula Oxygen Flow Rate 4 Sepsis Recent Fever Within 48 Hours Sepsis New/Unexplained Change in Mental Status Sepsis Action Taken by Nursing 07/06/24 10:04 07/06/24 10:12 07/06/24 10:15 Temperature Temperature Source Pulse Rate 112 H 110 H Pulse Rate [Apical] Pulse Rate from SpO2 Sensor 114 H Respiratory Rate 22 21 Respiratory Effort / Characteristics Respiratory Depth Respiratory Pattern Blood Pressure 128/85 130/85 Blood Pressure [Right Arm] Blood Pressure Mean 92 99 Blood Pressure Mean [Right Arm] Pulse Oximetry 94 95 Oxygen Delivery Method Nasal Cannula Oxygen Flow Rate 4 Sepsis Recent Fever Within 48 Hours Sepsis New/Unexplained Change in Mental Status Sepsis Action Taken by Nursing 07/06/24 10:30 07/06/24 10:51 07/06/24 12:17 Temperature Temperature Source Pulse Rate 110 H 115 H Pulse Rate [Apical] 100 H Pulse Rate from SpO2 Sensor 107 H 114 H Respiratory Rate 29 H 17 16 Respiratory Effort / Characteristics Non-Labored Respiratory Depth Normal Respiratory Pattern Regular Blood Pressure 142/96 H Blood Pressure [Right Arm] 136/82 Blood Pressure Mean 111 Blood Pressure Mean [Right Arm] 100 Pulse Oximetry 95 92 94 Oxygen Delivery Method Nasal Cannula Nasal Cannula Room Air Oxygen Flow Rate 2 2 Sepsis Recent Fever Within 48 Hours Sepsis New/Unexplained Change in Mental Status Sepsis Action Taken by Nursing 07/06/24 12:29 Temperature Temperature Source Pulse Rate 99 H Pulse Rate [Apical] Pulse Rate from SpO2 Sensor Respiratory Rate 24 Respiratory Effort / Characteristics Respiratory Depth Respiratory Pattern Blood Pressure 136/82 Blood Pressure [Right Arm] Blood Pressure Mean Blood Pressure Mean [Right Arm] Pulse Oximetry 94 Oxygen Delivery Method Room Air Oxygen Flow Rate Sepsis Recent Fever Within 48 Hours Sepsis New/Unexplained Change in Mental Status Sepsis Action Taken by Nursing Laboratory Data 07/06/24 08:55 07/06/24 08:55 Lab Results 07/06/24 07/06/24 07/06/24 Range/Units 08:55 09:03 09:08 WBC 11.57 H (4.8-10.8) K/ul RBC 4.52 L (4.70-6.10) M/uL Hgb 14.0 (14.0-18.0) g/dl POC Hgb 14.3 (14.0-18.0) g/dl Hct 42.8 (42.0-52.0) % POC Hct 42 (42-52) % MCV 94.7 (80.0-100.0) fL MCH 31.0 (25.0-34.0) pg MCHC 32.7 (32.0-36.0) g/dL RDW Std Deviation 51.4 H (36.4-46.3) fL RDW Coeff of Eyal 14.7 H (11.5-14.5) % Plt Count 149 (130-400) K/uL MPV 9.5 (9.4-12.4) fL Immature Gran % (Auto) 0.9 % Neut % (Auto) 94.9 % Lymph % (Auto) 2.6 % [place] % (Auto) 0.5 % Eos % (Auto) 0.8 % Baso % (Auto) 0.3 % Neut # (Auto) 10.98 H (1.40-6.50) K/uL Lymph # (Auto) 0.30 L (1.20-3.40) K/uL [place] # (Auto) 0.06 L (0.11-0.59) K/uL Eos # (Auto) 0.09 (0.00-0.50) K/uL Baso # (Auto) 0.04 (0.00-0.20) K/uL Immature Gran # (Auto) 0.10 (0.01-0.20) K/uL PT 10.9 (9.0-12.0) Seconds INR 1.0 (0.9-1.1) VBG pH 7.37 (7.36-7.41) VBG pCO2 36 L (38-50) mmHg VBG pO2 34 mmHg VBG HCO3 21 mmol/L VBG O2 Saturation < 60.0 % VBG Base Excess -3.9 mEq/L POC Sodium 143 (135-144) mmol/L Sodium 143 (136-145) mmol/L POC Potassium 3.8 (3.3-5.0) mmol/L Potassium 3.9 (3.5-5.1) mmol/L POC Chloride 109 (101-112) mmol/L Chloride 111 H (98-107) mmol/L Carbon Dioxide 23 (21-32) mmol/L POC Total CO2 19 L (24-31) mmol/L Anion Gap 9 (3-11) POC Anion Gap 20.0 (16-25) mmol/L POC BUN 19 H (7-18) mg/dl BUN 20 (6-23) mg/dl Creatinine 1.19 (0.6-1.4) mg/dl POC Creatinine 1.2 (0.6-1.3) mg/dl Est Cr Clr Drug Dosing 56.4 ml/min eGFR 62.14 BUN/Creatinine Ratio 16.8 (10-20) Glucose 97 (70-99(Fasting)) mg/dl POC Glucose (other) 98 (70-99) mg/dl Lactate 3.8 H* (0.4-2.0) mmol/L Calcium 8.6 (8.6-10.3) mg/dl POC Ioniz Calcium [place]athon 1.15 (1.12-1.32) mmol/l Magnesium 1.4 L (1.7-2.4) mg/dl Total Bilirubin 0.6 (0.2-1.0) mg/dl AST 15 (13-39) U/L ALT 13 (7-52) U/L Alkaline Phosphatase 68 (34-104) U/L Troponin I High Sens 516.2 H* (0-20) pg/ml B-Natriuretic Peptide 69 (0-100) pg/ml Total Protein 5.8 L (6.0-8.3) gm/dl Albumin 3.8 (3.4-5.0) gm/dl Globulin 2.0 L (2.5-4.0) gm/dl Albumin/Globulin Ratio 1.9 (0.9-2) Lipase 26 (11-82) U/L Procalcitonin 1.05 H (0-0.5) ng/ml Urine Color Urine Appearance (Clear) Urine pH (4.5-7.5) Ur Specific [place] (1.000-1.030) Urine Protein (Negative) Urine Glucose (UA) (Negative) Urine Ketones (Negative) Urine Blood (Negative) Urine Nitrite (Negative) Urine Bilirubin (Negative) Urine Urobilinogen (Negative) Ur Leukocyte Esterase (Negative) Urine WBC (Auto) (0-5) /hpf Urine RBC (Auto) (0-2) /hpf U Hyaline Cast (Auto) (0-2) /lpf U Epithel Cells (Auto) (0-2) /hpf Urine Bacteria (Auto) (None Seen) Adenovirus (PCR) Not Detected (NotDetected) B. pertussis DNA (PCR) Not Detected (NotDetected) B.parapertussis DNA PCR Not Detected (NotDetected) C. pneumoniae DNA (PCR) Not Detected (NotDetected) Coronavirus OC43 (PCR) Not Detected (NotDetected) Coronavirus HKU1 (PCR) Not Detected (NotDetected) Coronavirus 229E (PCR) Not Detected (NotDetected) SARS-CoV-2 (PCR) Not Detected (NotDetected) Coronavirus NL63 (PCR) Not Detected (NotDetected) Human Metapneumovir PCR Not Detected (NotDetected) Influenza Type A (PCR) Not Detected (NotDetected) Influenza Type B (PCR) Not Detected (NotDetected) M. pneumoniae (PCR) Not Detected (NotDetected) Parainfluenza 1 (PCR) Not Detected (NotDetected) Parainfluenza 2 (PCR) Not Detected (NotDetected) Parainfluenza 3 (PCR) Not Detected (NotDetected) Parainfluenza 4 (PCR) Not Detected (NotDetected) RSV (PCR) Not Detected (NotDetected) Entero/Rhino (PCR) Not Detected (NotDetected) 07/06/24 07/06/24 07/06/24 Range/Units 09:20 10:40 10:50 WBC (4.8-10.8) K/ul RBC (4.70-6.10) M/uL Hgb (14.0-18.0) g/dl POC Hgb (14.0-18.0) g/dl Hct (42.0-52.0) % POC Hct (42-52) % MCV (80.0-100.0) fL MCH (25.0-34.0) pg MCHC (32.0-36.0) g/dL RDW Std Deviation (36.4-46.3) fL RDW Coeff of Eyal (11.5-14.5) % Plt Count (130-400) K/uL MPV (9.4-12.4) fL Immature Gran % (Auto) % Neut % (Auto) % Lymph % (Auto) % [place] % (Auto) % Eos % (Auto) % Baso % (Auto) % Neut # (Auto) (1.40-6.50) K/uL Lymph # (Auto) (1.20-3.40) K/uL [place] # (Auto) (0.11-0.59) K/uL Eos # (Auto) (0.00-0.50) K/uL Baso # (Auto) (0.00-0.20) K/uL Immature Gran # (Auto) (0.01-0.20) K/uL PT (9.0-12.0) Seconds INR (0.9-1.1) VBG pH (7.36-7.41) VBG pCO2 (38-50) mmHg VBG pO2 mmHg VBG HCO3 mmol/L VBG O2 Saturation % VBG Base Excess mEq/L POC Sodium (135-144) mmol/L Sodium (136-145) mmol/L POC Potassium (3.3-5.0) mmol/L Potassium (3.5-5.1) mmol/L POC Chloride (101-112) mmol/L Chloride (98-107) mmol/L Carbon Dioxide (21-32) mmol/L POC Total CO2 (24-31) mmol/L Anion Gap (3-11) POC Anion Gap (16-25) mmol/L POC BUN (7-18) mg/dl BUN (6-23) mg/dl Creatinine (0.6-1.4) mg/dl POC Creatinine (0.6-1.3) mg/dl Est Cr Clr Drug Dosing ml/min eGFR BUN/Creatinine Ratio (10-20) Glucose (70-99(Fasting)) mg/dl POC Glucose (other) (70-99) mg/dl Lactate 2.5 H* (0.4-2.0) mmol/L Calcium (8.6-10.3) mg/dl POC Ioniz Calcium [place] (1.12-1.32) mmol/l Magnesium (1.7-2.4) mg/dl Total Bilirubin (0.2-1.0) mg/dl AST (13-39) U/L ALT (7-52) U/L Alkaline Phosphatase (34-104) U/L Troponin I High Sens 1780.1 H* D (0-20) pg/ml B-Natriuretic Peptide (0-100) pg/ml Total Protein (6.0-8.3) gm/dl Albumin (3.4-5.0) gm/dl Globulin (2.5-4.0) gm/dl Albumin/Globulin Ratio (0.9-2) Lipase (11-82) U/L Procalcitonin (0-0.5) ng/ml Urine Color Yellow Urine Appearance Clear (Clear) Urine pH 5.0 (4.5-7.5) Ur Specific [place] 1.012 (1.000-1.030) Urine Protein Negative (Negative) Urine Glucose (UA) Negative (Negative) Urine Ketones Negative (Negative) Urine Blood 2+ H (Negative) Urine Nitrite Negative (Negative) Urine Bilirubin Negative (Negative) Urine Urobilinogen Negative (Negative) Ur Leukocyte Esterase Negative (Negative) Urine WBC (Auto) 0-5 (0-5) /hpf Urine RBC (Auto) >20 H (0-2) /hpf U Hyaline Cast (Auto) 0-2 (0-2) /lpf U Epithel Cells (Auto) 0-2 (0-2) /hpf Urine Bacteria (Auto) None Seen (None Seen) Adenovirus (PCR) (NotDetected) B. pertussis DNA (PCR) (NotDetected) B.parapertussis DNA PCR (NotDetected) C. pneumoniae DNA (PCR) (NotDetected) Coronavirus OC43 (PCR) (NotDetected) Coronavirus HKU1 (PCR) (NotDetected) Coronavirus 229E (PCR) (NotDetected) SARS-CoV-2 (PCR) (NotDetected) Coronavirus NL63 (PCR) (NotDetected) Human Metapneumovir PCR (NotDetected) Influenza Type A (PCR) (NotDetected) Influenza Type B (PCR) (NotDetected) M. pneumoniae (PCR) (NotDetected) Parainfluenza 1 (PCR) (NotDetected) Parainfluenza 2 (PCR) (NotDetected) Parainfluenza 3 (PCR) (NotDetected) Parainfluenza 4 (PCR) (NotDetected) RSV (PCR) (NotDetected) Entero/Rhino (PCR) (NotDetected) Administered Medications Discontinued Medications Acetaminophen (Ofirmev) 1,000 mg in 100 mls @ 400 mls/hr IV NOW STA Stop: 07/06/24 09:16 Last Infusion: 07/06/24 09:37 Dose: Infused Documented By: Admin: 07/06/24 09:20 Dose: 400 mls/hr Documented By: CORTEZ Cefepime HCl (Maxipime 2000mg) 2,000 mg in 20 mls @ 5 mls/min IV NOW STA; Protocol Stop: 07/06/24 10:35 Last Admin: 07/06/24 10:44 Dose: 5 mls/min Documented By: CORTEZ Sodium Chloride (Nss) 250 mls @ 999 mls/hr IV .Q16M ONE Stop: 07/06/24 11:30 Last Infusion: 07/06/24 11:55 Dose: Infused Documented By: Admin: 07/06/24 11:33 Dose: 999 mls/hr Documented By: CORTEZ Imaging Data Radiologist's Impression: Chest X-Ray 07/06/24 08:57 SINGLE VIEW CHEST CLINICAL HISTORY: Fever. Hypoxia. FINDINGS: 2 AP, portable, upright chest radiograph are compared to study dated 03/14/2023 and correlated with chest CT dated 03/14/2024. The examination is degraded by portable technique, apical lordotic positioning, and patient rotation. A left internal jugular central venous infusion port is unchanged in position. The heart is enlarged. The pulmonary vasculature is noncongested. Chronic interstitial thickening is previous. There is bibasilar scarring/atelectasis. No airspace consolidation or large pleural effusion is identified. No pneumothorax is seen. The skeletal structures are osteopenic. There are chronic/healed left-sided rib fractures. Degenerative change is noted in the shoulders and spine. IMPRESSION: Cardiomegaly with no acute cardiopulmonary abnormality identified. ACT 112: Negative or not required by law. Electronically signed by: London Sagastume M.D. 07/06/2024 9:[address] 07/06/24 09:20 CT chest diagnostic wo con CT DOSE: 2258.91 mGy.cm CLINICAL HISTORY: 79 years-old Male with confusion, fever, hypoxia/sob. Acute shortness of breath TECHNIQUE: Multiaxial CT images of the chest were performed without contrast. A dose lowering technique was utilized adhering to the principles of ALARA. COMPARISON: 03/14/2024, 03/14/2023, 08/29/2022, 08/14/2022. FINDINGS: Subcentimeter hypodense thyroid nodules. Left IJ [id number] catheter of the distal tip terminates within the superior cavoatrial junction. Heart is normal in size without pericardial effusion. Extensive coronary artery calcifications. Atherosclerosis of the thoracic aorta without aneurysm. There is no pneumothorax, pleural effusion, or overt pulmonary edema. Irregular subpleural consolidative opacity within the posterior segment of the right upper lobe measuring up to approximately 5 cm on image 64 series 8 is stable in size. There are adjacent nodular foci tracking along the fissure measuring up to 11 mm on image 87 series 8, also stable. Associated scarring with architectural distortion. Subsegmental left basilar ground-glass densities. A 1.4 cm subpleural nodular opacity within the left lower lobe on image 135 series 8 is also unchanged. Central airways are patent. No new pulmonary nodules or areas of consolidation is identified. Colonic diverticulosis. Demineralized appearance of the bones. Multifocal lytic lesions are redemonstrated compatible with the patient's clinical diagnosis of multiple myeloma. Chronic pathologic compression deformities are again noted without acute fracture identified. Chronic nondisplaced posterolateral left seventh rib fracture is unchanged. IMPRESSION: 1. No acute intrathoracic abnormality. 2. Irregular subpleural consolidative opacities of the right upper and left lower lobe appear generally stable dating back to the 2021 comparison exams. These findings again favor postinflammatory scarring with atelectasis. 3. Multifocal lytic lesions are redemonstrated compatible with the patient's clinical diagnosis of multiple myeloma. Chronic pathologic compression deformities are again noted without acute fracture identified. ACT 112: Negative or not required by law. Electronically signed by: Salty Barros M.D. 07/06/2024 11:[address] 07/06/24 09:20 CT SCAN OF THE BRAIN WITHOUT IV CONTRAST CLINICAL HISTORY: Change in mental status. COMPARISON STUDY: CT of the brain dated 03/20/2022. TECHNIQUE: Unenhanced axial CT scan of the brain is performed from the vertex to the skull base. A dose lowering technique was utilized adhering to the principles of ALARA. FINDINGS: Brain parenchyma: There is age-related involutional change noting [id number] subcortical and periventricular microangiopathic disease. There is no hemorrhage, mass effect, or evidence of acute territorial ischemia by CT criteria. Walters-white matter differentiation is preserved. No extra-axial fluid collection is seen. Ventricles, sulci, cisterns: Prominent secondary to involutional change. Intracranial vasculature: There is atherosclerotic calcification of the cavernous carotid and vertebral arteries. Calvarium: Unremarkable. Sinuses and mastoids: There is trace mucosal thickening in the right maxillary antrum. The remaining visualized paranasal sinuses are clear. The mastoid air cells are well pneumatized. Orbits: The bony orbits are grossly intact. There are bilateral ocular lens implants. IMPRESSION: There is no hemorrhage, mass effect, or evidence of acute territorial ischemia by CT criteria. ACT 112: Negative or not required by law. Electronically signed by: London Sagastume M.D. 07/06/2024 10:05 AM Discharge Plan Visit Data Chief Complaint: Shortness of Breath/Dyspnea Stated Complaint: SOB, CARDIAC ASSESSMENT ED Provider: Hermann Obrien Discharge Problem: Sepsis, Bone marrow replaced by transplant, Elevated troponin, Weakness, Multiple myeloma Patient Disposition: Being Evaluated by Hospitalist Discharge Instructions Interventions: ED Discharge Assessment Last Done: 07/06/24 12:29 Forms Stand Alone Forms: [facility] [place] [employer] Prescriptions Prescriptions: No Action acetaminophen [Acetaminophen Extra Strength] 500 mg Tablet 1,000 mg PO Q8 PRN (Reason: Fever Or Pain) polyethylene glycol 3350 [Miralax] 17 gram/dose Powder 17 g PO DAILY PRN (Reason: Constipation) Rx Instructions: PRN daratumumab 20 mg/mL solution See Rx Instructions IV MONTHLY Rx Instructions: weight based intravenously monthly; Monthly at [facility] center via IV docusate sodium [Colace] 100 mg capsule 100 mg PO DAILY cetirizine [Zyrtec] 10 mg tablet 10 mg PO DAILY PRN (Reason: Allergy Symptoms) fluticasone furoate-vilanterol [Breo Ellipta] 200-25 mcg/dose blister with device 1 inh INHALATION QAM Qty: 60 4RF Eliquis 5 mg tablet 5 mg PO BID Qty: 180 1RF cyanocobalamin (vitamin B-12) 500 mcg tablet 1,000 mcg PO Q OTHER DAY triamcinolone acetonide 0.1 % cream 1 applic topical DAILY dexamethasone 4 mg tablet 4 mg PO DAILY PRN Rx Instructions: 3 tablets on treatment day pantoprazole 40 mg tablet,delayed release (DR/EC) 20 mg PO DAILY dutasteride 0.5 mg capsule 0.5 mg PO QAM Qty: 90 3RF potassium citrate 10 mEq (1,080 mg) tablet extended release 1,080 mg PO DAILY 90 Days Qty: 90 3RF levalbuterol tartrate 45 mcg/actuation HFA aerosol inhaler 1 puffs INH Q6H PRN (Reason: shortness of breath) Qty: 15 1RF Rx Instructions: PRN acyclovir 400 mg Tablet 400 mg PO BID montelukast [Singulair] 10 mg tablet 10 mg PO MONTHLY PRN (Reason: Allergy Symptoms) Rx Instructions: Pre chemo the night before monthly chemo treatments citalopram 10 mg tablet 10 mg PO QAM thiamine HCl (vitamin B1) 100 mg Tablet 200 mg PO BID Qty: 60 0RF magnesium oxide 400 mg (241.3 mg magnesium) Tablet 400 mg PO QAM Qty: 30 0RF folic acid 1 mg Tablet 1 mg PO QAM Qty: 30 0RF ergocalciferol (vitamin D2) 1,250 mcg (50,000 unit) Capsule 50,000 unit PO Q7D@0800 Qty: 30 0RF metoprolol tartrate 25 mg Tablet 25 mg PO BID Qty: 60 0RF Referrals Referrals: Corazon Vargas MD [Primary Care Provider] -
[2024-07-06 10:15] LABS: Adenovirus PCR Not Detected (NotDetected); Bordetella parapertussis PCR Not Detected (NotDetected); Bordetella pertussis PCR Not Detected (NotDetected); Chlamydia pneumoniae PCR Not Detected (NotDetected); Coronavirus 229E PCR Not Detected (NotDetected); Coronavirus CoV-2 (COVID19)PCR Not Detected (NotDetected); Coronavirus HKU1 PCR Not Detected (NotDetected); Coronavirus NL63 PCR Not Detected (NotDetected); Coronavirus OC43PCR Not Detected (NotDetected); Human Metapneumovirus PCR Not Detected (NotDetected); Influenza A PCR Not Detected (NotDetected); Influenza B PCR Not Detected (NotDetected); Mycoplasma pneumoniae PCR Not Detected (NotDetected); Parainfluenza Virus 1 PCR Not Detected (NotDetected); Parainfluenza Virus 2 PCR Not Detected (NotDetected); Parainfluenza Virus 3 PCR Not Detected (NotDetected); Parainfluenza Virus 4 PCR Not Detected (NotDetected); Respiratory Syncytial VirusPCR Not Detected (NotDetected); Rhinovirus/Enterovirus PCR Not Detected (NotDetected)
[2024-07-06 10:20] LABS: Appearance Urine Clear (Clear); Bacteria Urine Automated None Seen (None Seen); Bilirubin Urine Negative (Negative); Blood Urine 2+ (Negative); Cast Urine Automated 0-2 /lpf (0-2); Color Urine Yellow; Epithelial Cell Urine Auto 0-2 /hpf (0-2); Glucose Urine UA Negative (Negative); Ketones Urine Negative (Negative); Leukocyte Esterase Urine Negative (Negative); Nitrite Urine Negative (Negative); Protein Urine Negative (Negative); RBC Urine Automated >20 /hpf (0-2); Specific Gravity Urine 1.012 (1.000-1.030); Urobilinogen Urine Negative (Negative); WBC Urine Automated 0-5 /hpf (0-5)
[2024-07-06] MEDS: CEFEPIME 2000MG 2,000 MG/20 ML SYR IV STA (10:44)
--- NOTE | 2024-07-06 11:02 | CT Scan Report ---
CT chest diagnostic wo con CT DOSE: 2258.91 mGy.cm CLINICAL HISTORY: 79 years-old Male with confusion, fever, hypoxia/sob. Acute shortness of breath TECHNIQUE: Multiaxial CT images of the chest were performed without contrast. A dose lowering techni que was utilized adhering to the principles of ALARA. COMPARISON: 03/14/2024, 03/14/2023, 08/29/2022, 08/14/2022. FINDINGS: Subcentimeter hypodense thyroid nodules. Left IJ [id number] catheter of the distal tip t erminates within the superior cavoatrial junction. Heart is normal in size without pericardial effusi on. Extensive coronary artery calcifications. Atherosclerosis of the thoracic aorta without aneurysm. There is no pneumothorax, pleural effusion, or overt pulmonary edema. Irregular subpleural consolidat bri opacity within the posterior segment of the right upper lobe measuring up to approximately 5 cm o n image 64 series 8 is stable in size. There are adjacent nodular foci tracking along the fissure mohamud suring up to 11 mm on image 87 series 8, also stable. Associated scarring with architectural distorti on. Subsegmental left basilar ground-glass densities. A 1.4 cm subpleural nodular opacity within the left lower lobe on image 135 series 8 is also unchanged. Central airways are patent. No new pulmonary nodules or areas of consolidation is identified. Colonic diverticulosis. Demineralized appearance of the bones. Multifocal lytic lesions are redemonst rated compatible with the patient's clinical diagnosis of multiple myeloma. Chronic pathologic compre ssion deformities are again noted without acute fracture identified. Chronic nondisplaced posterolate ral left seventh rib fracture is unchanged. IMPRESSION: 1. No acute intrathoracic abnormality. 2. Irregular subpleural consolidative opacities of the right upper and left lower lobe appear general ly stable dating back to the 2021 comparison exams. These findings again favor postinflammatory scarr ing with atelectasis. 3. Multifocal lytic lesions are redemonstrated compatible with the patient's clinical diagnosis of mu ltiple myeloma. Chronic pathologic compression deformities are again noted without acute fracture willy ntified. ACT 112: Negative or not required by law. Electronically signed by: Salty Barros M.D. 07/06/2024 11:00 AM
[2024-07-06] MEDS: SODIUM CHLORIDE 0.9% 250 ML IV ONE (11:33)
--- NOTE | 2024-07-06 12:17 | History & Physical Report ---
Date of Service July 06, 2024 Assessment & Plan (1) SIRS (systemic inflammatory response syndrome): Plan: Acute SIRS with tachycardia >90 and RR >20, w/o identifiable source of infection - Admit to PCU - Heart healthy diet ordered - Vital signs per unit protocol - Defer further antibiotic therapy, received one dose of IV Cefepime 2g in ED - Blood cultures and urine cultures ordered, pending - Noted poor dentition ?source - UA unremarkable, BioFire negative - Procal elevated at 1.05, Lactate 2.5 -> repeat lactate ordered/pending - S/p 1L of NSS in the ED, deferred additional fluids d/t HF history (2) Acute respiratory failure with hypoxemia: Plan: With history of complicated PNA (PCP and cryptococcal PNA) + restrictive lung disease - Follows with Dr. 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 Manzo, appreciate input (3) Elevated troponin: Plan: Acute without symptoms of chest pain - Initial EKG demonstrating sinus tachycardia w/ rate of 140 - Initial HS trop 516.2 with 2-hour repeat 1780.1 - Stat Echocardiogram ordered - Serial HS trop to peak - Not on aspirin or statin therapy, no prior CAD history - Consider cardiology consult pending echo results (4) Hypomagnesemia: Plan: Acute - Mag 1.4 --> replete with Mag Sulfate 1g IV x2 doses - Start MagOx 400mg BID 10/4 AM - Repeat mag level in AM (5) ESBL (extended spectrum beta-lactamase) producing bacteria infection: (6) Gram-negative bacteremia: (7) Sepsis: Plan Chronic medical problems - Multiple Myeloma s/p bone marrow transplant - f/u with CCP - Chronic Afib - continue Lopressor, examines in NSR, continue Eliquis - H/o VTE - continue Eliquis 5mg BID, also provides VTE ppx - Depression/anxiety - resume citalopram once med reconciliation completed to ensure correct dose - GERD - continue pantoprazole. - BPH - med rec not completed, can resume dutasteride 0.5mg if still taking. Gonzalez inserted, manage qshift. Code status: DNR/DNI, confirmed with patient and family. Plan as outlined above. AM labs ordered. Follow echocardiogram results and cultures. Above plan of care has been d/w Dr. Pruett who will also see and evaluate this patient. Further orders as warranted per attending. History of Present Illness Chief Complaint: Shortness of breath, weakness, fever Primary Care Provider: Corazon Vargas MD Jarret is a 79 yo M with a pmhx of Multiple Myeloma s/p bone marrow transplant, reactive airway disease, history of complicated pneumonia including PCP and cryptococcal pneumonia in 2021, Afib, history of PE, on chronic DOAC therapy who presents c/o generalized weakness, fever, and shortness of breath. He reports that he has been in his usual state of health until overnight, his reports that he was complaining of being "cold" and requesting extra blankets. His increased the temperature on the thermostat overnight, but in AM, he was still complaining of cold chills and increased weakness. He also was then c/o nausea and had dry heaves, but no vomiting. EMS was summoned by his and upon arrival, he was noted to have a temp of 101F and hypoxia with O2 sat in the 80s, was placed on supplemental O2, and was noted to be tachycardic in the 170-180s. He received adenosine 6mg x1 for possible SVT followed by 12mg. His initial HS trop was 516.2 followed by repeat which was markedly elevated at 1780.1. He has not had an echo since March 2023. He is currently denying chest pain, dyspnea, palpitations, diaphoresis, cough, congestion, n/v/d. He was treated for fever with a dose of APAP. His viral panel was negative. Chest CT w/o contrast was stable from prior findings from 2021 and his UA is not suggestive of infection. He does have poor dentition and reports he lost a filling on one of his upper teeth about a year ago but has refused to see a dentist. He was given a dose of IV Cefepime 2g for minimally elevated wbc count, elevated lactate of 2.5 and procal of 1.0 and has been referred to the hospital medicine team for admission. Allergies Allergy/AdvReac Type Severity Reaction Status Date / Time dexamethasone AdvReac Severe Hallucinati Verified 07/06/24 11:32 on prednisone AdvReac Severe hallucinati Verified 07/06/24 11:32 ons meclizine AdvReac Intermediate HALLUCINATI Verified 07/06/24 11:32 ON sulfamethoxazole AdvReac Intermediate Hallucinati Verified 07/06/24 11:32 [From Bactrim] ng trimethoprim [From Bactrim] AdvReac Intermediate Hallucinati Verified 07/06/24 11:32 ng hydrocodone AdvReac Mild AGITATION Verified 07/06/24 11:32 levofloxacin [From Levaquin] AdvReac Mild muscle Verified 07/06/24 11:32 weakness lisinopril AdvReac Mild Dizziness Verified 07/06/24 11:32 Home Medications Medication Instructions Recorded Confirmed Type acyclovir 400 mg tablet 400 mg PO BID 08/02/18 07/06/24 History citalopram 10 mg tablet 10 mg PO QAM 04/25/19 07/06/24 History folic acid 1 mg tablet 1 mg PO QAM #30 tabs 04/03/22 07/06/24 Rx magnesium oxide 400 mg (241.3 mg 400 mg PO QAM #30 tabs 04/03/22 07/06/24 Rx magnesium) tablet metoprolol tartrate 25 mg tablet 25 mg PO BID #60 tabs 04/03/22 07/06/24 Rx thiamine HCl (vitamin B1) 100 mg 200 mg (2 x 100 mg) PO BID #60 tabs 04/03/22 07/06/24 Rx tablet cetirizine 10 mg tablet (Zyrtec) 10 mg PO DAILY Allergy Symptoms 07/28/23 07/06/24 History daratumumab 20 mg/mL intravenous See Rx Instructions IV MONTHLY 07/28/23 07/06/24 History solution Breo Ellipta 200 mcg-25 mcg/dose 1 inh inhalation QAM #60 ea 12/13/23 07/06/24 Rx powder for inhalation (fluticasone furoate-vilanterol) potassium citrate 10 mEq (1,080 1,080 mg PO DAILY 90 days #90 tabs 03/02/24 07/06/24 Rx mg) tablet,extended release dexamethasone 4 mg tablet 0 mg PO UD Treatment Days 03/21/24 07/06/24 History pantoprazole 40 mg tablet,delayed 40 mg PO DAILY 03/21/24 07/06/24 History release apixaban 5 mg tablet (Eliquis) 5 mg PO BID #180 tabs 07/03/24 07/06/24 Rx cyanocobalamin (vitamin B-12) 1,000 mcg PO Q OTHER DAY 07/06/24 07/06/24 History 1,000 mcg tablet (Vitamin B-12) ergocalciferol (vitamin D2) 1,250 50,000 unit PO WK 07/06/24 07/06/24 History mcg (50,000 unit) capsule sennosides 8.6 mg-docusate sodium 1 tab-cap PO DAILY PRN Constipation 07/06/24 07/06/24 History 50 mg tablet (Senna Plus) Past Med/Surg History Problem List (Updated 07/07/24 @ 12:26 by Saman Vasquez MD) SVT (supraventricular tachycardia) NSTEMI (non-ST elevated myocardial infarction) Gram-negative bacteremia ESBL (extended spectrum beta-lactamase) producing bacteria infection Acute respiratory failure with hypoxemia SIRS (systemic inflammatory response syndrome) Multiple myeloma (Acute) Weakness (Acute) Elevated troponin (Acute) Sepsis (Acute) Chest pain (Acute) Multiple pulmonary nodules Parapelvic renal cyst Microscopic hematuria Pneumocystis carinii pneumonia Abnormal chest CT Exertional shortness of breath Thiamine deficiency Folate deficiency Acute maxillary sinusitis Hypokalemia Hypomagnesemia Pneumonia COVID-19 Metabolic acidosis Vitamin D deficiency Confusion Fall Acute renal failure PCP (pneumocystis jiroveci pneumonia) Muscle weakness (generalized) Fatigue Cryptococcal pneumonitis (Acute) Hypoxia (Acute) Pulmonary infiltrate present on computed tomography (Acute) Acute encephalopathy Abnormal chest CT B12 deficiency Acute respiratory failure with hypoxia Diarrhea Hypokalemia Cryptococcal pneumonitis Gout Current use of termite helper anticoagulation (Chronic) Calculus of kidney (HFpEF) heart failure with preserved ejection fraction Light chain myeloma (Acute) Acute appendicitis (Acute) Acute appendicitis Metastatic malignant neoplasm of unknown primary site (Acute) Elevated troponin Left shoulder pain (Acute) Rash (Acute) Depression Cancer MULTIPLE MYELOMA (DX'D 2015); stem cell transplant, chemo Osteoporosis 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 Bone marrow replaced by transplant (Acute) SOB (shortness of breath) on exertion Thrombocytopenia Anemia BASELINE 8-9 RANGE Elevated prostate specific antigen (PSA) Sepsis associated hypotension Diastolic dysfunction Abnormal urine finding Encounter for pre-operative examination Pneumonia (Acute) Fever (Acute) Shortness of breath (Acute) Acute UTI (Acute) Medical History (HFpEF) heart failure with preserved ejection fraction Anemia BASELINE 8-9 RANGE BPH loc w urin obs/LUTS Calculus of kidney Cancer MULTIPLE MYELOMA (DX'D 2015); stem cell transplant, chemo Cryptococcal pneumonitis Current use of snf anticoagulation Depression GERD (gastroesophageal reflux disease) Gout History of nephrolithiasis History of pneumothorax 2020 with lung biopsy History of pulmonary embolism SENECA (hard of hearing) Irregular heartbeat 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 Port-A-Cath in place Left chest Pulmonary embolism 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); 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 SOB (shortness of breath) on exertion Thrombocytopenia Tremor Surgical History Bone marrow replaced by transplant History of cataract surgery RT History of chest tube placement History of lung biopsy benign Family History Father Cardiac disorder Heart disease Mother Cancer Stroke Other No family history of adverse response to anesthesia Social History Smoking Status: Never smoker Second Hand Exposure: No; Do You Dip or Chew Tobacco: No; Hx Alcohol Use: No Hx Substance Use: No Preferred Language: Haitian Communication Ability: Effective Communication Ability Comment: hard of hearing Visual Impairment: No Limitations Block Cuber Required: No Beliefs That Will Affect Care: None marital status: Current Living Situation: Spouse current occupational status: retired How many Children do You have: 0 Other Information That Helps Us Care for You: No Feels Safe at Home: Yes Safety Concerns: Feels Safe At This Time Diet: regular during the past year weight has: remained stable Assistive Devices: Cane and Walker Review of Systems 2 Review of Systems: All systems reviewed and are unremarkable except as noted in HPI and below. Denies fever, chills, fatigue, headache, nasal congestion, sore throat, cough, chest pain, palpitations, orthopnea, PND, abdominal pain, diarrhea, constipation, dysuria, hematuria, frequency, back pain, joint pain or swelling, easy bruising or bleeding, skin lesions or rashes. Physical Exam 2 Physical Exam: GENERAL: 79 yo elderly well-nourished WM. NAD. EYES: EOMI. PERRLA. Anicteric. HENT: Moist mucous membranes. Poor dentition. Upper right incisor tooth broken off and necrotic base. No cervical lymphadenopathy. LUNGS: Clear to auscultation bilaterally. No accessory muscle use. No W/R/R. CARDIOVASCULAR: Regular rate and rhythm. No JVD. ABDOMEN: Soft, non-tender and non-distended. No palpable masses. BS normoactive x 4 quad. : Gonzalez inserted draining clear yellow urine EXTREMITIES: Trace b/l LE edema. Non-tender. Peripheral pulses +2/4. NEUROLOGIC: A&O x3. No focal neurological deficits. CN II-XII grossly intact. PSYCHIATRIC: Cooperative. Appropriate mood and affect. SKIN: Warm, dry, intact. No rashes or lesions. Results & Data Results & Data Vital Signs (Past 12 Hours) Vital Signs Temp Pulse Pulse Resp BP BP Pulse Ox 07/06/24 10:51 115 H 17 92 07/06/24 10:30 110 H 29 H 142/96 H 95 07/06/24 10:15 110 H 21 130/85 95 07/06/24 10:12 112 H 22 94 07/06/24 10:04 128/85 07/06/24 10:04 36.8 C 116 H 20 128/85 94 07/06/24 10:00 114 H 28 H 94 07/06/24 09:39 122 H 29 H 95 07/06/24 09:22 121 H 26 H 123/82 93 07/06/24 09:18 128 H 32 H 183/126 H 94 07/06/24 08:55 143 H 07/06/24 08:55 38.9 C H 145 H 163/110 H 95 07/06/24 08:53 163/110 H 07/06/24 08:50 87 L O2 Del Method O2 Flow Rate 07/06/24 10:51 Nasal Cannula 2 07/06/24 10:30 Nasal Cannula 2 07/06/24 10:15 Nasal Cannula 4 07/06/24 10:12 07/06/24 10:04 07/06/24 10:04 Nasal Cannula 4 07/06/24 10:00 07/06/24 09:39 07/06/24 09:22 Nasal Cannula 4 07/06/24 09:18 Nasal Cannula 4 07/06/24 08:55 07/06/24 08:55 Nasal Cannula 2 07/06/24 08:53 07/06/24 08:50 Room Air Laboratory Results 07/06/24 08:55 07/06/24 08:55 Diagnostic Findings Chest X-Ray 07/06/24 08:57 SINGLE VIEW CHEST CLINICAL HISTORY: Fever. Hypoxia. FINDINGS: 2 AP, portable, upright chest radiograph are compared to study dated 03/14/2023 and correlated with chest CT dated 03/14/2024. The examination is degraded by portable technique, apical lordotic positioning, and patient rotation. A left internal jugular central venous infusion port is unchanged in position. The heart is enlarged. The pulmonary vasculature is noncongested. Chronic interstitial thickening is previous. There is bibasilar scarring/atelectasis. No airspace consolidation or large pleural effusion is identified. No pneumothorax is seen. The skeletal structures are osteopenic. There are chronic/healed left-sided rib fractures. Degenerative change is noted in the shoulders and spine. IMPRESSION: Cardiomegaly with no acute cardiopulmonary abnormality identified. ACT 112: Negative or not required by law. Electronically signed by: London Sagastume M.D. 07/06/2024 9:[address] 07/06/24 09:20 CT chest diagnostic wo con CT DOSE: 2258.91 mGy.cm CLINICAL HISTORY: 79 years-old Male with confusion, fever, hypoxia/sob. Acute shortness of breath TECHNIQUE: Multiaxial CT images of the chest were performed without contrast. A dose lowering technique was utilized adhering to the principles of ALARA. COMPARISON: 03/14/2024, 03/14/2023, 08/29/2022, 08/14/2022. FINDINGS: Subcentimeter hypodense thyroid nodules. Left IJ [id number] catheter of the distal tip terminates within the superior cavoatrial junction. Heart is normal in size without pericardial effusion. Extensive coronary artery calcifications. Atherosclerosis of the thoracic aorta without aneurysm. There is no pneumothorax, pleural effusion, or overt pulmonary edema. Irregular subpleural consolidative opacity within the posterior segment of the right upper lobe measuring up to approximately 5 cm on image 64 series 8 is stable in size. There are adjacent nodular foci tracking along the fissure measuring up to 11 mm on image 87 series 8, also stable. Associated scarring with architectural distortion. Subsegmental left basilar ground-glass densities. A 1.4 cm subpleural nodular opacity within the left lower lobe on image 135 series 8 is also unchanged. Central airways are patent. No new pulmonary nodules or areas of consolidation is identified. Colonic diverticulosis. Demineralized appearance of the bones. Multifocal lytic lesions are redemonstrated compatible with the patient's clinical diagnosis of multiple myeloma. Chronic pathologic compression deformities are again noted without acute fracture identified. Chronic nondisplaced posterolateral left seventh rib fracture is unchanged. IMPRESSION: 1. No acute intrathoracic abnormality. 2. Irregular subpleural consolidative opacities of the right upper and left lower lobe appear generally stable dating back to the 2021 comparison exams. These findings again favor postinflammatory scarring with atelectasis. 3. Multifocal lytic lesions are redemonstrated compatible with the patient's clinical diagnosis of multiple myeloma. Chronic pathologic compression deformities are again noted without acute fracture identified. ACT 112: Negative or not required by law. Electronically signed by: Salty Barros M.D. 07/06/2024 11:[address] 07/06/24 09:20 CT SCAN OF THE BRAIN WITHOUT IV CONTRAST CLINICAL HISTORY: Change in mental status. COMPARISON STUDY: CT of the brain dated 03/20/2022. TECHNIQUE: Unenhanced axial CT scan of the brain is performed from the vertex to the skull base. A dose lowering technique was utilized adhering to the principles of ALARA. FINDINGS: Brain parenchyma: There is age-related involutional change noting [id number] subcortical and periventricular microangiopathic disease. There is no hemorrhage, mass effect, or evidence of acute territorial ischemia by CT criteria. Walters-white matter differentiation is preserved. No extra-axial fluid collection is seen. Ventricles, sulci, cisterns: Prominent secondary to involutional change. Intracranial vasculature: There is atherosclerotic calcification of the cavernous carotid and vertebral arteries. Calvarium: Unremarkable. Sinuses and mastoids: There is trace mucosal thickening in the right maxillary antrum. The remaining visualized paranasal sinuses are clear. The mastoid air cells are well pneumatized. Orbits: The bony orbits are grossly intact. There are bilateral ocular lens implants. IMPRESSION: There is no hemorrhage, mass effect, or evidence of acute territorial ischemia by CT criteria. ACT 112: Negative or not required by law. Electronically signed by: London Sagastume M.D. 07/06/2024 10:05 AM Code Status & VTE Plan Code Status DNR/DNI - confirmed with patient VTE Prophylaxis Plan VTE Prophylaxis will be ordered: Yes Supervising Physician Co-Signing Physician Notes I personally saw and examined the patient. I independently reviewed the labs, EKG, imaging, problem list, medication list, past medical history and family history. I verified all sanchez points and agree with Shira Mobley PA-C with the following exceptions and/or additions: 79 year old male presents to the ER rigors, chills, nausea and dry heaves. Difficult to obtain accurate history from the patient as initially talked about abdominal pain but none at this time. History from his above appears more reliable. O/E HS increased rate, regular rhythm, no murmurs, Chest CTAB, Abdo SNT, no CVA tenderness A/P Sepsis with ESBL E. coli - blood cultures already growing ESBL E. coli from earlier in the day. Ertapenem started. Unclear source as UA did not appear infective appearing, will send earlier sample in lab for confirmation. Patient has port in addition which may be source. Consider CT A/P if urine culture negative given possible abdominal pain although none currently on exam. Elevated troponin - no chest pain or shortness of breath to suggest ACS, continue to trend, consult cardiology, TTE PG Care Time/CCT Total # of Minutes Spent Total Time Spent with Patient: Total time spent is greater than 50% in coordination of care (as documented) at patient's floor/unit and/or counseling patient: 80 minutes Coding Level of Care Code 08411 INT INP/OBS CARE 3/75MIN Diagnoses SIRS (systemic inflammatory response syndrome) R65.10 Acute respiratory failure with hypoxemia J96.01 Elevated troponin R79.89 Hypomagnesemia E83.42 ESBL (extended spectrum beta-lactamase) producing bacteria infection A49.9; Z16.12 Gram-negative bacteremia R78.81 Sepsis A41.9
[2024-07-06] MEDS ORDERED: ONDANSETRON INJ 2 MG/ML 2 ML VIAL IV PRN (13:34)
[2024-07-06] MEDS ORDERED: POLYETHYLENE (MIRALAX) 17 GM PACK PO PRN (13:34)
[2024-07-06] MEDS ORDERED: ACETAMINOPHEN 325 MG TAB PO PRN (13:34)
[2024-07-06] MEDS ORDERED: ALUMINUM/MAGNESIUM SUSP 30 ML UDC PO PRN (13:34)
[2024-07-06] MEDS ORDERED: MAGNESIUM HYDROXIDE SUSP 30 ML UDC PO PRN (13:34)
--- OUTSIDE RECORDS SUMMARY | 2024-07-06 13:52 | External Medical Summary | Continuity of Care Document ---
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(Discharge Diagnosis) - 06/26/24 Actinic keratosis(Discharge Diagnosis) - 06/26/24 Discharge Disposition: Home or Self Care Attending Physician: MD Galo Cassandra Referring Physician: MD Galo Cassandra Allergies, Adverse Reactions, Alerts Substance Criticality Severity Reaction Reaction Severity Status dexamethasone hallucinations A ctive lisinopril dizzy Active Vicodin anger Active Allergy Not found in Search 1 unknown Active Levaquin muscle weakness Acti ve meclizine confusion Active 1Issues with oral antibiotics Medications acyclovir 400 mg oral tablet Start: 10/12/18 2:32:00 PM EST, 1 tab, PO, bid Start Date: 10/12/18 Status: Ordered Breo Ellipta 200 mcg-25 mcg/inh inhalation powder Start: 03/21/20 10:12:00 AM EDT, 1 puff, inhaled, Daily, Disp# 1 each, Refills: 0, Pharmacy: [id number] Start Date: 03/21/20 Stop Date: 04/20/20 Status: Ordered citalopram 10 mg oral tablet Start: 10/12/18 2:32:00 PM EST, 1 tab, PO, Daily Start Date: 10/12/18 Status: Ordered Colace 2-in-1 Start: 06/18/22 10:26:00 AM EDT, 1 tab, PO, qhs Start Date: 06/18/22 Status: Ordered Darzalex Faspro 1800 mg-30,000 units/15 mL subcutaneous solution Start: 09/16/23 10:15:00 AM EST, once a month Start Date: 09/16/23 Status: Ordered dutasteride 0.5 mg oral capsule Start: 03/21/20 10:09:00 AM EDT, 1 cap, PO, Daily, Disp# 30 cap, Refills: 0, Pharmacy: [id number] Start Date: 03/21/20 Stop Date: 04/20/20 Status: Ordered Eliquis 5 mg oral tablet Start: 10/20/22 2:11:00 PM EST, 1 tab, PO, bid Start Date: 10/20/22 Status: Ordered folic acid Start: 06/18/22 10:20:00 AM EDT, 1 mg =, PO, Daily Start Date: 06/18/22 Status: Ordered ketoconazole 2% topical shampoo Start: 08/26/22 12:49:00 PM EST, See Instructions, Disp# 120 mL, Refills: 2, use as a body wash in the shower up to daily., Pharmacy: [id number] Start Date: 08/26/22 Status: Ordered magnesium oxide Start: 06/18/22 10:21:00 AM EDT, 400 mg =, PO, Daily Start Date: 06/18/22 Status: Ordered Metoprolol Tartrate 25 mg oral tablet Start: 06/18/22 10:24:00 AM EDT, 1 tab, PO, bid Start Date: 06/18/22 Status: Ordered pantoprazole 40 mg oral delayed release tablet Start: 06/18/22 10:24:00 AM EDT, 1 tab, PO, Daily Start Date: 06/18/22 Status: Ordered potassium chloride Start: 09/16/23 10:17:00 AM EST, 2 tabs daily Start Date: 09/16/23 Status: Ordered thiamine Start: 06/18/22 10:25:00 AM EDT, 200 mg =, PO, bid Start Date: 06/18/22 Status: Ordered triamcinolone 0.1% topical cream Start: 09/16/23 10:45:00 AM EST, 1 appl, topical, bid, Disp# 908 g, Refills: 2, Appy to affected areas on trunk and extremities up to twice daily as needed for itch/rash, Note to Pharmacy: please dispense 2 one pound jars per month as he has a large surface area to cover; Hold until patient requests, Pharmacy: [id number] Start Date: 09/16/23 Stop Date: 12/15/23 Status: Ordered Vitamin B12 Start: 06/18/22 10:18:00 AM EDT, 1,000 mcg =, PO, Daily Start Date: 06/18/22 Status: Ordered Vitamin D3 Start: 06/18/22 10:19:00 AM EDT, 1.25 mcg =, PO, Daily Start Date: 06/18/22 Status: Ordered Mental Status 06/26/24 Barriers to Learning one year None evide nt Mandatory Health Literacy Documentation Yes Health Literacy Communication Barriers N ever Primary Language Icelandic Problem List Condition Confirmation Course Effective Dates Status Health St atus Informant Basal cell carcinoma (BCC) Confirmed Active 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 Multiple myeloma Confirmed Active PE (pulmonary thromboembolism) Confirmed Active Diagnosis Diagnosis Type Effective Dates Health Status Cl inical Service Informant 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 Discharge Diagnosis 06/26/24 Non-Specified Actinic keratosis Discharge Diagnosis 06/26/24 Non-Specified Procedures Procedure Date Related Diagnosis Body Site Status Electrodesiccation with curettage 06/26/24 Completed Shave biopsy and cauterization of skin 05/08/24 Completed Mohs micrographic surgery 10/11/23 Completed Mohs micrographic surgery 10/11/23 Completed Shave biopsy and cauterization of skin 10/11/23 Completed Shave biopsy of skin 09/16/23 Comp leted Mohs micrographic surgery 06/15/23 Completed Shave biopsy of skin 02/15/23 Comp leted Shave biopsy 1 08/07/22 Completed Shave biopsy 2 08/07/22 Completed Mohs' micrographic surgery 12/16/[address] scan - whole body 12/12/21 Comp leted Electrodesiccation with curettage 12/02/21 Completed Excision 12/02/21 Completed Mohs' micrographic surgery 11/25/21 Completed Shave biopsy and cauterization of skin 10/30/21 Completed Cataract extraction 2021 Compl eted Excision 05/07/21 Completed Shave biopsy of skin 04/24/21 Comp leted Mohs' micrographic surgery 11/13/20 Completed Shave biopsy 10/24/20 Completed Mohs micrographic surgery 12/21/18 Completed Mohs micrographic surgery 12/07/18 Completed Shave biopsy 10/12/18 Completed Shave biopsy 10/12/18 Completed Shave biopsy 10/12/18 Completed Cataract extraction 3 Com pleted Port 4 Completed Procedure 5, 6 Completed 1right upper abdomen 2right chest 3right eye 4infusaport 5stem cell transplant-2016 [id number] not 2016 Social History Social History Type Response Smoking Status Never smoked cigaret kael Sex Sex Representation Male (finding) Dermatology Outpt Proc * MD Iraj, Radha: PERFORM Event Display: Dermatology Outpt Proc Authored Date: [id number] Name:RAGHAV MIXON Patient Number:[id number] :1945 Date of Service:06/26/2024 Electrodesiccation and Curettage Destruction of a Malignant Lesion PREOPERATIVE DIAGNOSIS: squamous cell carcinoma insitu DERMPATH ACCESSION: Diagnosis ([id number]) 1.Skin, right mid back, shave biopsy: -Squamous cell carcinoma in situ POSTOPERATIVE DIAGNOSIS: Same LOCATION:right mid back LESION DIAMETER (after first pass): 1.5 cm OPERATION PERFORMED: Electrodesiccation and curettage destruction. SURGEON:Radha Galo MD PREOPERATIVE MEDICATIONS: None POSTOPERATIVE MEDICATIONS: None INDICATIONS: Patient presents with a bx demonstrated squamous cell carcinoma in situ. Treatment options were discussed, and the patient favored curettage destruction. The patient was educated regarding scarring and wound healing, and elects to proceed. OPERATION:The patient was taken to the surgical suite where the benefits and risks of the procedure were explained. After time was given for questions, a signed consent was obtained. The patient was then placed on the operating table in the supine position. The prior biopsy site was identified and confirmed, then prepped with an antiseptic solution and draped in the usual fashion.0.5% lidocaine with epinephrine was infiltrated until adequate anesthesia was obtained. Approximately 3 cc were given. The lesion was then curetted with a 4 mm curette to remove all visible portions of the tumor, followed by hyfrecation. Curettage followed by hyfrecation was repeated for a total of 3 cycles until tumor eradication was felt to be complete. Hemostasis was obtained with aluminum chloride application. The wound was then cleansed, and a pressure dressing was placed with petrolatum ointment, non-stick pad, and gauze and paper tape. Estimated blood loss was less than 5 mland there were no complications. The patient received both written and verbal wound care instructions and left the Dermatology Clinic in good condition. Patient also notes persistent spot, although improved at R cheek, treated with cryo at last visit. On exam, there is a pink scaly macule of the R mid cheek. - acute lesions present on exam today, diagnosis and natural course reviewed including risk of transformation to SCC, treatment with cryotherapy today Cryotherapy performed following verbal consent and allowing time for questions. Alternative therapies were discussed, and education on wound healing, risk of thermal injury, dyspigmentation, infection and scar formation were performed. Wound care instructions reviewed. Total # lesions treated:1 F/u PRN for above and as scheduled for skin exam Electronic Signature on File Electronically Reviewed/Signed by: Radha Galo MD Author Signature Dt/Tm:06/26/2024 04:49 PM Department of Dermatology CS Patient Care team information Care Team Personnel Name: Omar Barnes Position: HIS Supervisor_P Member Role: HIS Lifetime Name: MD Vargas Tracy A Position: Referring Member Role: Primary Care Provider Address: [address] [place] [id number] [place] Care Team Related Persons Name: MARY MIXON
[2024-07-06] MEDS ORDERED: INFLUENZA VACC TS2024-25(65y+)/PF (IIV3) 0.5mL Syr IM ONE (14:05)
--- NOTE | 2024-07-06 14:22 | XCELERA ---
[id number]
[2024-07-06] MEDS: APIXABAN 5 MG TABLET PO SCH (15:11)
[2024-07-06] MEDS: MAGNESIUM SULFATE / D5W 1 GM/100 ML BAG IV SCH (15:11)
--- NOTE | 2024-07-06 15:29 | Pulmonary Consultation ---
Date of Consultation July 06, 2024 Assessment & Plan (1) Multiple myeloma: (2) Multiple pulmonary nodules: (3) Abnormal chest CT: (4) Exertional shortness of breath: Plan CT chest 07/06/2024 personally reviewed: Right upper lobe peripheral pleural- based opacity approximately 5 cm (stable 05/25) 11 mm pulmonary nodule inferior to age (stable) Left lower lobe pleural-based 1.4 cm nodularity (stable) No mediastinal lymphadenopathy PFT 11/04/2022 personally reviewed: Moderate restrictive lung disease,Moderate decrease in TLC with severe decrease in ERV, no obstructive lung dysfunction, moderate decrease in DLCO FVC 2.64 L 63%, FEV1 1.92 L 64%, FEV1/FVC 72%, ERV 8%, RV 59%, TLC 57%, RV/TLC 100%, DLCO 42%, DLCO/VA 71% --Restrictive lung disease TLC 57%, FVC 63%, DLCO 42%, DLCO/VA 71% No interstitial or reticular markings appreciated on the CAT scan Likely from underlying BMI Incentive spirometry was weight loss of a beneficial -- 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 This was tried while he was in the hospital resulting in starting Precedex in the ICU. -- History of Cryptococcal pneumonia Patient has consolidative process right upper lobe along which is most likely scarred by now This was proven by bronchoscopy done by the previous specimen accessioner Dr. Tyson at [facility] Was started on on Diflucan around January 2022 S/p fluconazole for total of 6 months, QTc 442 11/04/22 CSF cryptococcal antigen negative -- Exertional shortness of breath --> at baseline Patient is still using Breo 200 on a daily basis. is unsure if it is making any difference in his breathing PFT does not show any obstructive lung dysfunction. Patient has tried getting off of Breo in the past but he has congested and finds benefit from it. Continue with the same --History of PE On Apixaban --Multiple myeloma s/p autologous stem cell transplant 12/2016 failed maintenance Velcade and c urrently on daratumumab -- Plan: Looking at the CAT scan of the chest I do not think patient has pulmonary etiology for him being in the hospital It is likely gastrointestinal versus renal No need for antibiotics from pulmonary perspective Would recommend to wean the patient off oxygen Continue with Breo Please note the above document was generated using voice recognition software. It may contain grammatical, syntax or spelling errors.Any formal questions or concerns about the content, text or information contained within the body of this dictation should be directly addressed to the provider for clarification. History of Present Illness Attending Physician: Bony Pruett MD History of Present Illness 78-year-old male admitted to the hospital for generalized weakness Past medical history: Multiple myeloma s/p autologous stem cell transplant 12/2016 failed maintenance Velcade and currently on daratumumab, paroxysmal A. fib, HFpEF, PE on Lovenox, BPH, PJP pneumonia March 2022 Patient was last seen by me in the clinic on 03/21/2024 At the time of examination patient was saturating 97% on 2 L nasal cannula, I went down to 1 L and he was still saturating 94-95%. Patient stated that overnight around 2 AM patient started to feel lethargic with nausea. He threw up around 4 AM He did have diarrhea around the same time which was nonbloody nonbilious. He denies any issues when it comes to his breathing Denied any chest pain, no shortness of breath, no cough, no hemoptysis. Did complain of abdominal pain in the left flank Chills but no documented fever No headache, no blurry vision No personal or family history of autoimmune disease. 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 Allergies Allergy/AdvReac Type Severity Reaction Status Date / Time dexamethasone AdvReac Severe Hallucinati Verified 07/06/24 11:32 on prednisone AdvReac Severe hallucinati Verified 07/06/24 11:32 ons meclizine AdvReac Intermediate HALLUCINATI Verified 07/06/24 11:32 ON sulfamethoxazole AdvReac Intermediate Hallucinati Verified 07/06/24 11:32 [From Bactrim] ng trimethoprim [From Bactrim] AdvReac Intermediate Hallucinati Verified 07/06/24 11:32 ng hydrocodone AdvReac Mild AGITATION Verified 07/06/24 11:32 levofloxacin [From Levaquin] AdvReac Mild muscle Verified 07/06/24 11:32 weakness lisinopril AdvReac Mild Dizziness Verified 07/06/24 11:32 Home Medications Medication Instructions Recorded Confirmed Type acyclovir 400 mg tablet 400 mg PO BID 08/02/18 07/06/24 History citalopram 10 mg tablet 10 mg PO QAM 04/25/19 07/06/24 History folic acid 1 mg tablet 1 mg PO QAM #30 tabs 04/03/22 07/06/24 Rx magnesium oxide 400 mg (241.3 mg 400 mg PO QAM #30 tabs 04/03/22 07/06/24 Rx magnesium) tablet metoprolol tartrate 25 mg tablet 25 mg PO BID #60 tabs 04/03/22 07/06/24 Rx thiamine HCl (vitamin B1) 100 mg 200 mg (2 x 100 mg) PO BID #60 tabs 04/03/22 07/06/24 Rx tablet cetirizine 10 mg tablet (Zyrtec) 10 mg PO DAILY Allergy Symptoms 07/28/23 07/06/24 History daratumumab 20 mg/mL intravenous See Rx Instructions IV MONTHLY 07/28/23 07/06/24 History solution Breo Ellipta 200 mcg-25 mcg/dose 1 inh inhalation QAM #60 ea 12/13/23 07/06/24 Rx powder for inhalation (fluticasone furoate-vilanterol) potassium citrate 10 mEq (1,080 1,080 mg PO DAILY 90 days #90 tabs 03/02/24 07/06/24 Rx mg) tablet,extended release dexamethasone 4 mg tablet 0 mg PO UD Treatment Days 03/21/24 07/06/24 History pantoprazole 40 mg tablet,delayed 40 mg PO DAILY 03/21/24 07/06/24 History release apixaban 5 mg tablet (Eliquis) 5 mg PO BID #180 tabs 07/03/24 07/06/24 Rx cyanocobalamin (vitamin B-12) 1,000 mcg PO Q OTHER DAY 07/06/24 07/06/24 History 1,000 mcg tablet (Vitamin B-12) ergocalciferol (vitamin D2) 1,250 50,000 unit PO WK 07/06/24 07/06/24 History mcg (50,000 unit) capsule sennosides 8.6 mg-docusate sodium 1 tab-cap PO DAILY PRN Constipation 07/06/24 07/06/24 History 50 mg tablet (Senna Plus) Patient History Medical History (HFpEF) heart failure with preserved ejection fraction Anemia BASELINE 8-9 RANGE BPH loc w urin obs/LUTS Calculus of kidney Cancer MULTIPLE MYELOMA (DX'D 2015); stem cell transplant, chemo Cryptococcal pneumonitis Current use of usp anticoagulation Depression GERD (gastroesophageal reflux disease) Gout History of nephrolithiasis History of pneumothorax 2020 with lung biopsy History of pulmonary embolism [place] (hard of hearing) Irregular heartbeat 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 Port-A-Cath in place Left chest Pulmonary embolism 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); 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 SOB (shortness of breath) on exertion Thrombocytopenia Tremor Surgical History Bone marrow replaced by transplant History of cataract surgery RT History of chest tube placement History of lung biopsy benign Family History Father Cardiac disorder Heart disease Mother Cancer Stroke Other No family history of adverse response to anesthesia Social History Smoking Status: Never smoker Second Hand Exposure: No; Do You Dip or Chew Tobacco: No; Hx Alcohol Use: No Hx Substance Use: No Preferred Language: Turkmen Communication Ability: Effective Communication Ability Comment: hard of hearing Visual Impairment: No Limitations Solar 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 Required: No Beliefs That Will Affect Care: None marital status: Current Living Situation: Spouse current occupational status: retired How many Children do You have: 0 Other Information That Helps Us Care for You: No Feels Safe at Home: Yes Safety Concerns: Feels Safe At This Time Diet: regular during the past year weight has: remained stable Assistive Devices: Cane Review of Systems 2 Review of Systems: All systems reviewed & are unremarkable except as noted in HPI & below Physical Exam 2 Physical Exam: Constitutional: No acute distress HEENT: EOMI, PERRLA Respiratory system: Decreased air entry bilaterally, no wheeze, no rhonchi, mild crackles bilateral lower lobes CVS: S1-S2 positive, no murmurs or gallops Abdomen: Soft, nontender, nondistended, positive bowel sounds x4, obese Extremities: +2 pulses bilaterally radialis/ dorsalis pedis, no cyanosis, +1 pitting edema bilateral lower extremity Neuro: Awake alert oriented x3 Psych: Normal mood and affect G/U: Positive Gonzalez Skin: no rashes, warm and dry Lymphatic: no cervical or axillary lymphadenopathy Results & Data Results & Data Vital Signs (Past 12 Hours) Vital Signs Temp Pulse Pulse Resp BP BP Pulse Ox 07/06/24 13:40 07/06/24 13:40 37 C 101 H 18 122/71 97 07/06/24 12:29 99 H 24 136/82 94 07/06/24 12:17 100 H 16 136/82 94 07/06/24 10:51 115 H 17 92 07/06/24 10:30 110 H 29 H 142/96 H 95 07/06/24 10:15 110 H 21 130/85 95 07/06/24 10:12 112 H 22 94 07/06/24 10:04 128/85 07/06/24 10:04 36.8 C 116 H 20 128/85 94 07/06/24 10:00 114 H 28 H 94 07/06/24 09:39 122 H 29 H 95 07/06/24 09:22 121 H 26 H 123/82 93 07/06/24 09:18 128 H 32 H 183/126 H 94 07/06/24 08:55 143 H 07/06/24 08:55 38.9 C H 145 H 163/110 H 95 07/06/24 08:53 163/110 H 07/06/24 08:50 87 L O2 Del Method O2 Flow Rate 07/06/24 13:40 Nasal Cannula 2 07/06/24 13:40 Nasal Cannula 2 07/06/24 12:29 Room Air 07/06/24 12:17 Room Air 07/06/24 10:51 Nasal Cannula 2 07/06/24 10:30 Nasal Cannula 2 07/06/24 10:15 Nasal Cannula 4 07/06/24 10:12 07/06/24 10:04 07/06/24 10:04 Nasal Cannula 4 07/06/24 10:00 07/06/24 09:39 07/06/24 09:22 Nasal Cannula 4 07/06/24 09:18 Nasal Cannula 4 07/06/24 08:55 07/06/24 08:55 Nasal Cannula 2 07/06/24 08:53 07/06/24 08:50 Room Air Laboratory Results 07/06/24 08:55 07/06/24 08:55 PG Care Time/CCT Total # of Minutes Spent Total Time Spent with Patient: Total time spent is greater than 50% in coordination of care (as documented) at patient's floor/unit and/or counseling patient: Coding Level of Care Code 23006 INT INP/OBS CARE 3/75MIN Diagnoses Multiple myeloma C90.00 Multiple pulmonary nodules R91.[address] R93.89 Exertional shortness of breath R06.02
[2024-07-06] MEDS: ACYCLOVIR 400 MG TAB PO SCH (21:29)
[2024-07-06] MEDS: METOPROLOL TARTRATE 25 MG TAB PO SCH (21:30)
[2024-07-06] MEDS: THIAMINE HCL 100 MG TAB PO SCH (21:31)
[2024-07-06 22:20] LABS: A calco-baum cmplx NotReported Not Detected (NotDetected); Bact fragilis Not Reported Not Detected (NotDetected); Blood Culture Id Panel See PCR Comment (NotDetected); C auris Not Reported Not Detected (NotDetected); Calbicans Not Reported Not Detected (NotDetected); Candida glabrata Not Reported Not Detected (NotDetected); Candida krusei Not Reported Not Detected (NotDetected); Cneoformans/gatti Not Reported Not Detected (NotDetected); Cparapsilosis Not Reported Not Detected (NotDetected); E cloacae compx Not Reported Not Detected (NotDetected); Efaecalis Not Reported Not Detected (NotDetected); Efaecium Not Reported Not Detected (NotDetected); Enterobacterales Not Reported DETECTED (NotDetected); Escherichia coli Not Reported DETECTED (NotDetected); H influenzae Not Reported Not Detected (NotDetected); IMP Resistant Gene Not Detected (NotDetected); K aerogenes Not Reported Not Detected (NotDetected); KPC Resistant Gene Not Detected (NotDetected); Koxytoca Not Reported Not Detected (NotDetected); Kpneumoniae grp Not Reported Not Detected (NotDetected); Lmonocyt Not Reported Not Detected (NotDetected); N meningitidis Not Reported Not Detected (NotDetected); NDM Resistant Gene Not Detected (NotDetected); OXA 48 Like Resistant Gene Not Detected (NotDetected); P aeruginosa Not Reported Not Detected (NotDetected); Proteus spp Not Reported Not Detected (NotDetected); Salmonella spp Not Reported Not Detected (NotDetected); Staph lugdunensis Not Reported Not Detected (NotDetected); Staph spp. Not Reported Not Detected (NotDetected); Staphaureus Not Reported Not Detected (NotDetected); Staphepi Not Reported Not Detected (NotDetected); Stenmaltophilia Not Reported Not Detected (NotDetected); Strep agal(GrpB) Not Reported Not Detected (NotDetected); Strep pneum Not Reported Not Detected (NotDetected); Strep pyog (GrpA) Not Reported Not Detected (NotDetected); Strep spp Not Reported Not Detected (NotDetected); VIM Resistant Gene Not Detected (NotDetected); mcr-1 Colistin Resistant Gene Not Detected (NotDetected)
[2024-07-06 22:30] LABS: CTX-M Resistant Gene DETECTED (NotDetected); Enterobacterales DETECTED (NotDetected)
[2024-07-06] MEDS: ERTAPENEM 1000MG 1,000 MG/10 ML SYR IV SCH (23:53)
[2024-07-07 07:16] LABS: Hematocrit (blood only) 38.6 % (42.0-52.0); Hemoglobin 12.6 g/dl (14.0-18.0); Mean Corpuscular Hgb Conc 32.6 g/dL (32.0-36.0); Mean Corpuscular Volume 94.8 fL (80.0-100.0); Mean Platelet Volume 9.8 fL (9.4-12.4); Platelet Count 119 K/uL (130-400); RDW Coefficient of Variation 15.2 % (11.5-14.5); RDW Standard Deviation 52.7 fL (36.4-46.3); Red Blood Count 4.07 M/uL (4.70-6.10); White Blood Count 19.38 K/ul (4.8-10.8)
[2024-07-07 07:34] LABS: Albumin Globulin Ratio 1.8 (0.9-2); Albumin Level 3.3 gm/dl (3.4-5.0); BUN Creatinine Ratio 16.1 (10-20); Bilirubin,Total 0.6 mg/dl (0.2-1.0); Calcium 8.5 mg/dl (8.6-10.3); Creatinine Clr Calc Pharmacy 61.8 ml/min; Globulin 1.8 gm/dl (2.5-4.0); Magnesium 2.1 mg/dl (1.7-2.4); Potassium 3.8 mmol/L (3.5-5.1); Total Protein 5.1 gm/dl (6.0-8.3)
[2024-07-07 07:38] LABS: Basophils # (auto) 0.03 K/uL (0.00-0.20); Basophils % (auto) 0.2 %; Eosinophils # (auto) 0.06 K/uL (0.00-0.50); Eosinophils % (auto) 0.3 %; Immature Granulocytes # (auto) 0.11 K/uL (0.01-0.20); Immature Granulocytes % (auto) 0.6 %; Lymphocytes # (auto) 0.46 K/uL (1.20-3.40); Lymphocytes % (auto) 2.4 %; Monocytes % (auto) 4.1 %; Neutrophils # (auto) 17.92 K/uL (1.40-6.50); Neutrophils % (auto) 92.4 %
--- NOTE | 2024-07-07 08:14 | Hospitalist Progress Note ---
Date of Service July 07, 2024 Assessment & Plan (1) Sepsis: Plan: Jarret is a 79yo man with h/o Multiple Myeloma s/p bone marrow transplant, reactive airway dz, complicated PNAs including PCP and cryptococcal (2021), Afib, and PE on chronic DOAC therapy, who presented with generalized weakness and dyspnea. - On arrival, met SIRS criteria w/ HR > 90, RR > 20; no identifiable source of infection - O2 sat 87% on RA, required 2-4L n.c. to maintain > 90%; VBG pCO2 36, O2 sat < 60 - Leukocytosis to 11.57 --> 19.38; neut predominance - UA with 2+ blood, BioFire negative, Lactate 3.8-->2.5, procal 1.05 - Given 2g IV Cefepime and 1L NSS in ED - Blood cx w gram-neg bacilli x2 (Enterobacterales, E. coli) - UCx prelim no growth (2) NSTEMI (non-ST elevated myocardial infarction): Plan: - Recently worsening WRIGHT but never any chest pain, no h/o statin or blood thinner use - Trop 516 --> 1780 --> 2708 --> 3212 - Per cardiology: elevated troponin may be d/t demand ischemia; he has evidence of myocardial injury, likely a type II infarct related to his acute illness; further workup not recommended Admission and Anticipated Discharge Date Admission Date: July 06, 2024 Supervising Physician Co-Signing Physician Notes ATTESTATION I also saw the patient and confirmed sanchez portions of the history and exam. I agree with the impression and plan in the resident documentation, and as summarized below. Sleeping but awakens to voice. No new complaints. He tells me he slept fairly well overnight. Denies abdominal pain. EXAM 131/79, 76, 18, 36.6, 90% on 2 L of nasal cannula Alert and oriented. Non toxic; afebrile CV regular rate and rhythm Lungs with scattered crackles lower lobes, decreased volume overall DATA Labs White blood cell count trending down at 2.05, hemoglobin 12.5 Sodium 138, potassium 4.1, BUN 20, creatinine 1.06 LFTs are unremarkable Imaging CT scan of the abdomen completed 07/27 showed no acute findings. Did note a 1.9 cm diameter oval filling defect, polypoid lesion versus food product. Micro Blood cultures from 07/06/24 show, ESBL E. coli, sensitivities to ertapenem, gentamicin, meropenem, and piperacillin/Arsh Urine culture from 07/06/24 no growth IMPRESSION & PLAN Gram Negative Sepsis, POA Source not entirely clear - urine culture was negative, though this may have been collected after first dose of antibiotics; CT of the abdomen pelvis shows no sign of acute infection Clinically improving; remains afebrile, white blood cell count improving Continue ertapenem D/C munoz PT/OT assessment NSTEMI, Type II Chronic diastolic (congestive) HF Appreciate cardiology consultation Subtle LE edema, but overall euvolemic, so will monitor I/Os Resting echo completed and reviewed. Additional per resident documentation Subjective Feeling well today. Reports much improved/more energy than past several days. Denies SOLIS, worsening dyspnea, current CP, abd pain, muscle or joint aches. Review of Systems 2 Review of Systems: As per HPI. Physical Exam 2 Physical Exam: Gen: NAD, WD/WN HEENT: NCAT, PERRL CV: RRR, no m/r/g Resp: CTAB, breathing non-labored Abd: Soft, NT/ND Skin: Warm, dry, pink, no rashes or lesions Neuro: AOx3, CN II-XII grossly intact Psych: Mood-affect congruent. Speech pace and content normal. Results & Data Results & Data Vital Signs (Past 12 Hours) Vital Signs Temp Pulse Pulse Resp BP Pulse Ox O2 Del Method 07/07/24 05:40 61 07/07/24 03:12 36.8 C 72 24 120/76 96 Nasal Cannula 07/06/24 23:45 Nasal Cannula 07/06/24 23:14 36.6 C 82 24 103/63 95 Nasal Cannula 07/06/24 23:00 90 O2 Flow Rate 07/07/24 05:40 07/07/24 03:12 2 07/06/24 23:45 2 07/06/24 23:14 2 07/06/24 23:00 Laboratory Results 07/07/24 06:21 07/07/24 06:21 Diagnostic Findings Chest X-Ray 07/06/24 08:57 SINGLE VIEW CHEST CLINICAL HISTORY: Fever. Hypoxia. FINDINGS: 2 AP, portable, upright chest radiograph are compared to study dated 03/14/2023 and correlated with chest CT dated 03/14/2024. The examination is degraded by portable technique, apical lordotic positioning, and patient rotation. A left internal jugular central venous infusion port is unchanged in position. The heart is enlarged. The pulmonary vasculature is noncongested. Chronic interstitial thickening is previous. There is bibasilar scarring/atelectasis. No airspace consolidation or large pleural effusion is identified. No pneumothorax is seen. The skeletal structures are osteopenic. There are chronic/healed left-sided rib fractures. Degenerative change is noted in the shoulders and spine. IMPRESSION: Cardiomegaly with no acute cardiopulmonary abnormality identified. Electronically signed by: London Sagastume M.D. 07/06/2024 9:[address] 07/06/24 09:20 CT chest diagnostic wo con CT DOSE: 2258.91 mGy.cm CLINICAL HISTORY: 79 years-old Male with confusion, fever, hypoxia/sob. Acute shortness of breath TECHNIQUE: Multiaxial CT images of the chest were performed without contrast. A dose lowering technique was utilized adhering to the principles of ALARA. COMPARISON: 03/14/2024, 03/14/2023, 08/29/2022, 08/14/2022. FINDINGS: Subcentimeter hypodense thyroid nodules. Left IJ Jfmigy-[id number] catheter of the distal tip terminates within the superior cavoatrial junction. Heart is normal in size without pericardial effusion. Extensive coronary artery calcifications. Atherosclerosis of the thoracic aorta without aneurysm. There is no pneumothorax, pleural effusion, or overt pulmonary edema. Irregular subpleural consolidative opacity within the posterior segment of the right upper lobe measuring up to approximately 5 cm on image 64 series 8 is stable in size. There are adjacent nodular foci tracking along the fissure measuring up to 11 mm on image 87 series 8, also stable. Associated scarring with architectural distortion. Subsegmental left basilar ground-glass densities. A 1.4 cm subpleural nodular opacity within the left lower lobe on image 135 series 8 is also unchanged. Central airways are patent. No new pulmonary nodules or areas of consolidation is identified. Colonic diverticulosis. Demineralized appearance of the bones. Multifocal lytic lesions are redemonstrated compatible with the patient's clinical diagnosis of multiple myeloma. Chronic pathologic compression deformities are again noted without acute fracture identified. Chronic nondisplaced posterolateral left seventh rib fracture is unchanged. IMPRESSION: 1. No acute intrathoracic abnormality. 2. Irregular subpleural consolidative opacities of the right upper and left lower lobe appear generally stable dating back to the 2021 comparison exams. These findings again favor postinflammatory scarring with atelectasis. 3. Multifocal lytic lesions are redemonstrated compatible with the patient's clinical diagnosis of multiple myeloma. Chronic pathologic compression deformities are again noted without acute fracture identified. Electronically signed by: Salty Barros M.D. 07/06/2024 11:[address] 07/06/24 09:20 CT SCAN OF THE BRAIN WITHOUT IV CONTRAST CLINICAL HISTORY: Change in mental status. COMPARISON STUDY: CT of the brain dated 03/20/2022. TECHNIQUE: Unenhanced axial CT scan of the brain is performed from the vertex to the skull base. A dose lowering technique was utilized adhering to the principles of ALARA. FINDINGS: Brain parenchyma: There is age-related involutional change noting [id number] subcortical and periventricular microangiopathic disease. There is no hemorrhage, mass effect, or evidence of acute territorial ischemia by CT criteria. Walters-white matter differentiation is preserved. No extra-axial fluid collection is seen. Ventricles, sulci, cisterns: Prominent secondary to involutional change. Intracranial vasculature: There is atherosclerotic calcification of the cavernous carotid and vertebral arteries. Calvarium: Unremarkable. Sinuses and mastoids: There is trace mucosal thickening in the right maxillary antrum. The remaining visualized paranasal sinuses are clear. The mastoid air cells are well pneumatized. Orbits: The bony orbits are grossly intact. There are bilateral ocular lens implants. IMPRESSION: There is no hemorrhage, mass effect, or evidence of acute territorial ischemia by CT criteria. Electronically signed by: London Sagastume M.D. 07/06/2024 10:05 AM Resident Activity Tracking Resident Involvement: Resident Care Provided Care Provided: [facility]
[2024-07-07] MEDS: CITALOPRAM 20 MG TAB PO SCH (09:01)
[2024-07-07] MEDS: CETIRIZINE HCL 10 MG TABLET PO SCH (09:01)
[2024-07-07] MEDS: FLUTICASONE/VILANTEROL 200/25MCG 14 PUFFS/INHALER INH SCH (09:02)
[2024-07-07] MEDS: FOLIC ACID 1 MG TAB PO SCH (09:02)
[2024-07-07] MEDS: PANTOprazole 40 MG TAB PO SCH (09:04)
--- NOTE | 2024-07-07 09:09 | Pulmonology Progress Note ---
Date of Service July 07, 2024 Assessment & Plan (1) Multiple myeloma: (2) Multiple pulmonary nodules: (3) Abnormal chest CT: (4) Exertional shortness of breath: Plan CT chest 07/06/2024 personally reviewed: Right upper lobe peripheral pleural- based opacity approximately 5 cm (stable 05/25) 11 mm pulmonary nodule inferior to age (stable) Left lower lobe pleural-based 1.4 cm nodularity (stable) No mediastinal lymphadenopathy PFT 11/04/2022 personally reviewed: Moderate restrictive lung disease,Moderate decrease in TLC with severe decrease in ERV, no obstructive lung dysfunction, moderate decrease in DLCO FVC 2.64 L 63%, FEV1 1.92 L 64%, FEV1/FVC 72%, ERV 8%, RV 59%, TLC 57%, RV/TLC 100%, DLCO 42%, DLCO/VA 71% --Restrictive lung disease TLC 57%, FVC 63%, DLCO 42%, DLCO/VA 71% No interstitial or reticular markings appreciated on the CAT scan Likely from underlying BMI Incentive spirometry was weight loss of a beneficial -- 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 This was tried while he was in the hospital resulting in starting Precedex in the ICU. -- History of Cryptococcal pneumonia Patient has consolidative process right upper lobe along which is most likely scarred by now This was proven by bronchoscopy done by the previous produce field merchandiser Dr. Tyson at [facility] Was started on on Diflucan around January 2022 S/p fluconazole for total of 6 months, QTc 442 11/04/22 CSF cryptococcal antigen negative -- Exertional shortness of breath --> at baseline Patient is still using Breo 200 on a daily basis. is unsure if it is making any difference in his breathing PFT does not show any obstructive lung dysfunction. Patient has tried getting off of Breo in the past but he has congested and finds benefit from it. Continue with the same --History of PE On Apixaban --Multiple myeloma s/p autologous stem cell transplant 12/2016 failed maintenance Velcade and c urrently on daratumumab -- Gram-negative bacteremia Management as per primary team -- Plan: Looking at the CAT scan of the chest I do not think patient has pulmonary etiology for him being in the hospital Social gram-negative bacteremia is most likely GI. Would recommend CT abdomen and pelvis Continue with Cristiana Case was discussed with primary team No further recommendation from pulmonary perspective, will sign off Please call directly with any questions Please note the above document was generated using voice recognition software. It may contain grammatical, syntax or spelling errors.Any formal questions or concerns about the content, text or information contained within the body of this dictation should be directly addressed to the provider for clarification. Admission and Anticipated Discharge Date Admission Date: July 06, 2024 Subjective Patient seen and examined at bedside. No acute distress, not was was overnight Was saturating 92 over 93% on room air Stated that he is feeling much better compared to when he came to the hospital Complained of mild abdominal pain which is improved 1 bowel movement which was loose. No nausea or vomiting Denies any headache or blurry vision Review of Systems 2 Review of Systems: All systems reviewed & are unremarkable except as noted in Subjective Physical Exam 2 Physical Exam: Constitutional: No acute distress HEENT: EOMI, PERRLA Respiratory system: Decreased air entry bilaterally, no wheeze, no rhonchi, mild crackles bilateral lower lobes CVS: S1-S2 positive, no murmurs or gallops Abdomen: Soft, nontender, nondistended, positive bowel sounds x4, obese Extremities: +2 pulses bilaterally radialis/ dorsalis pedis, no cyanosis, +1 pitting edema bilateral lower extremity Neuro: Awake alert oriented x3 Psych: Normal mood and affect G/U: Positive Gonzalez Skin: no rashes, warm and dry Lymphatic: no cervical or axillary lymphadenopathy Results & Data Results & Data Vital Signs (Past 12 Hours) Vital Signs Temp Pulse Pulse Resp BP Pulse Ox O2 Del Method 07/07/24 08:12 37.0 C 82 20 129/83 98 Room Air 07/07/24 05:40 61 07/07/24 03:12 36.8 C 72 24 120/76 96 Nasal Cannula 07/06/24 23:45 Nasal Cannula 07/06/24 23:14 36.6 C 82 24 103/63 95 Nasal Cannula 07/06/24 23:00 90 O2 Flow Rate 07/07/24 08:12 5 07/07/24 05:40 07/07/24 03:12 2 07/06/24 23:45 2 07/06/24 23:14 2 07/06/24 23:00 Laboratory Results 07/07/24 06:21 07/07/24 06:21 PG Care Time/CCT Total # of Minutes Spent Total Time Spent with Patient: Total time spent is greater than 50% in coordination of care (as documented) at patient's floor/unit and/or counseling patient: Coding Level of Care Code 10110 SUB INP/OBS CARE 2/35MIN Diagnoses Multiple myeloma C90.00 Multiple pulmonary nodules R91.[address] R93.89 Exertional shortness of breath R06.02
[2024-07-07] MEDS: DOCUSATE SODIUM/SENNA 50/8.6MG TAB PO SCH (12:12)
[2024-07-07] MEDS: MAGNESIUM OXIDE 400 MG TAB PO SCH (12:12)
--- NOTE | 2024-07-07 12:29 | Cardiology Consultation ---
Date of Consultation July 07, 2024 Assessment & Plan (1) NSTEMI (non-ST elevated myocardial infarction): (2) Elevated troponin: (3) SVT (supraventricular tachycardia): Plan 1. NSTEMI: He has evidence of myocardial injury. I think the mechanism is likely a type II infarct related to his acute illness. He was noted to be hypoxic, acidotic and tachycardic at the time of his presentation and this is likely the mechanism for the elevation in his biomarkers. No chest pain at any time. Despite the significant elevation and his demographic, I do not think this is [employer] of an acute coronary syndrome. Normal dobutamine echocardiogram 1 year ago. No symptoms of angina on an outpatient basis even with exertion. The recommendation at this point is simply to continue supportive care, maintaining good oxygenation, perfusion and avoiding significant hypotension or tachycardia. 2. Elevated troponin: I think this is [employer] of demand ischemia. I would not recommend an evaluation for coronary disease based exclusively on this elevation. No other symptoms to suggest he needs an ischemic evaluation. 3. SVT: He does have rare episodes of SVT on telemetry. These last just a few seconds. Mechanism unclear, likely an ectopic atrial tachycardia. No symptoms reported by the patient. 4. Valvular heart disease: His most recent echocardiogram demonstrated mitral regurgitation of mild to moderate severity. No murmur on exam. This can be followed over time. 5. Atrial fibrillation: By report. None seen here in the hospital, certainly not of any great duration. He is on systemic anticoagulation in any regard. History of Present Illness Reason for Consultation: Elevated troponin Requesting Physician: Itz Attending Physician: Caleb Crook DO History of Present Illness The patient is a 79-year-old gentleman with a reported history of paroxysmal atrial fibrillation who presented to the hospital with symptoms of weakness, chills and subjective fevers. Patient states that his symptoms started yesterday. He felt quite cold and had some dry heaves as well. He reported not actually vomiting. As his symptoms persisted he presented to the hospital for an evaluation. EMS arrived at his house and he was found to be hypoxic and febrile. He was tachycardic in the emergency room. Patient was administered antibiotics and his symptoms seem to have improved. The patient states that his activity is limited primarily by dyspnea. This is chronic in nature and not worsened recently. He did not report orthopnea or paroxysmal nocturnal dyspnea. He does have some mild lower extremity edema which appears to be worse on the right foot than the left and this is also chronic. He has not been aware of any palpitations. He has not had chest pain at any time during his recent illness or prior to that. He is able to do some strenuous work of times and again did not report chest pain associated with this activity. He does occasionally have symptoms of dizziness, presyncope and syncope. He states that a few days ago he did develop an episode of syncope. He does have some warning. These episodes tend to happen while he is working. Afterwards he is quite fatigued and it takes him at least several minutes if not a half an hour to recover. He is not aware of any palpitations at that time. Currently he is feeling well. He did not report any breathing difficulty at rest. No abdominal complaints currently. No chest pain. Allergies Allergy/AdvReac Type Severity Reaction Status Date / Time dexamethasone AdvReac Severe Hallucinati Verified 07/06/24 11:32 on prednisone AdvReac Severe hallucinati Verified 07/06/24 11:32 ons meclizine AdvReac Intermediate HALLUCINATI Verified 07/06/24 11:32 ON sulfamethoxazole AdvReac Intermediate Hallucinati Verified 07/06/24 11:32 [From Bactrim] ng trimethoprim [From Bactrim] AdvReac Intermediate Hallucinati Verified 07/06/24 11:32 ng hydrocodone AdvReac Mild AGITATION Verified 07/06/24 11:32 levofloxacin [From Levaquin] AdvReac Mild muscle Verified 07/06/24 11:32 weakness lisinopril AdvReac Mild Dizziness Verified 07/06/24 11:32 Home Medications Medication Instructions Recorded Confirmed Type acyclovir 400 mg tablet 400 mg PO BID 08/02/18 07/06/24 History citalopram 10 mg tablet 10 mg PO QAM 04/25/19 07/06/24 History folic acid 1 mg tablet 1 mg PO QAM #30 tabs 04/03/22 07/06/24 Rx magnesium oxide 400 mg (241.3 mg 400 mg PO QAM #30 tabs 04/03/22 07/06/24 Rx magnesium) tablet metoprolol tartrate 25 mg tablet 25 mg PO BID #60 tabs 04/03/22 07/06/24 Rx thiamine HCl (vitamin B1) 100 mg 200 mg (2 x 100 mg) PO BID #60 tabs 04/03/22 07/06/24 Rx tablet cetirizine 10 mg tablet (Zyrtec) 10 mg PO DAILY Allergy Symptoms 07/28/23 07/06/24 History daratumumab 20 mg/mL intravenous See Rx Instructions IV MONTHLY 07/28/23 07/06/24 History solution Breo Ellipta 200 mcg-25 mcg/dose 1 inh inhalation QAM #60 ea 12/13/23 07/06/24 Rx powder for inhalation (fluticasone furoate-vilanterol) potassium citrate 10 mEq (1,080 1,080 mg PO DAILY 90 days #90 tabs 03/02/24 07/06/24 Rx mg) tablet,extended release dexamethasone 4 mg tablet 0 mg PO UD Treatment Days 03/21/24 07/06/24 History pantoprazole 40 mg tablet,delayed 40 mg PO DAILY 03/21/24 07/06/24 History release apixaban 5 mg tablet (Eliquis) 5 mg PO BID #180 tabs 07/03/24 07/06/24 Rx cyanocobalamin (vitamin B-12) 1,000 mcg PO Q OTHER DAY 07/06/24 07/06/24 History 1,000 mcg tablet (Vitamin B-12) ergocalciferol (vitamin D2) 1,250 50,000 unit PO WK 07/06/24 07/06/24 History mcg (50,000 unit) capsule sennosides 8.6 mg-docusate sodium 1 tab-cap PO DAILY PRN Constipation 07/06/24 07/06/24 History 50 mg tablet (Senna Plus) Patient History Medical History (HFpEF) heart failure with preserved ejection fraction Anemia BASELINE 8-9 RANGE BPH loc w urin obs/LUTS Calculus of kidney Cancer MULTIPLE MYELOMA (DX'D 2015); stem cell transplant, chemo Cryptococcal pneumonitis Current use of residential anticoagulation Depression GERD (gastroesophageal reflux disease) Gout History of nephrolithiasis History of pneumothorax 2019 with lung biopsy History of pulmonary embolism [place] (hard of hearing) Irregular heartbeat 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 Port-A-Cath in place Left chest Pulmonary embolism 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); 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 SOB (shortness of breath) on exertion Thrombocytopenia Tremor Surgical History Bone marrow replaced by transplant History of cataract surgery RT History of chest tube placement History of lung biopsy benign Family History Father Cardiac disorder Heart disease Mother Cancer Stroke Other No family history of adverse response to anesthesia Social History Smoking Status: Never smoker Second Hand Exposure: No; Do You Dip or Chew Tobacco: No; Hx Alcohol Use: No Hx Substance Use: No Preferred Language: Maori Communication Ability: Effective Communication Ability Comment: hard of hearing Visual Impairment: No Limitations Genetic Technologist Required: No Beliefs That Will Affect Care: None marital status: Current Living Situation: Spouse current occupational status: retired How many Children do You have: 0 Other Information That Helps Us Care for You: No Feels Safe at Home: Yes Safety Concerns: Feels Safe At This Time Diet: regular during the past year weight has: remained stable Assistive Devices: Cane Review of Systems Review of Systems: Per HPI. Some left upper quadrant discomfort when eating breakfast in the morning. This has been happening for several weeks. This tends to resolve spontaneously after approximately 1 hour. Physical Exam Physical Exam: The patient is alert and oriented. Mood and affect appeared normal. He answered all questions appropriately. HEENT: Pupils are equal and reactive to light and accommodation. Extraocular movements are intact. The sclerae are anicteric. Neuro: Cranial nerves intact Lungs: Clear to auscultation bilaterally. He has good air movement without use of accessory muscles. No rales wheezes or rhonchi. Cardiac: Heart demonstrates a regular rate and rhythm. Normal S1 and S2. No murmurs on examination. Pulses: The patient has palpable radial pulses bilaterally that are equal in intensity Extremities: There was no evidence of hypoperfusion. There is no cyanosis or clubbing. Mild lower extremity edema bilaterally. Right slightly worse than left. Skin: I did not appreciate any rashes on examination today. Results & Data Vital Signs (Past 12 Hours) Vital Signs Temp Pulse Pulse Resp BP Pulse Ox Pulse Ox 07/07/24 11:51 94 07/07/24 11:08 36.4 C L 87 18 127/74 95 07/07/24 08:12 37.0 C 82 20 129/83 98 07/07/24 05:40 61 07/07/24 03:12 36.8 C 72 24 120/76 96 Pulse Ox Pulse Ox O2 Del Method O2 Flow Rate O2 Flow Rate O2 Flow Rate O2 Flow Rate 07/07/24 11:51 96 94 0 2 0 07/07/24 11:08 Room Air 07/07/24 08:12 Room Air 5 07/07/24 05:40 07/07/24 03:12 Nasal Cannula 2 Laboratory Results Abnormal Lab Results 07/06/24 07/06/24 07/06/24 09:38 16:34 22:39 WBC RBC Hgb Hct MCV MCH MCHC RDW Std Deviation RDW Coeff of Eyal Plt Count MPV Immature Gran % (Auto) Neut % (Auto) Lymph % (Auto) [place] % (Auto) Eos % (Auto) Baso % (Auto) Neut # (Auto) Lymph # (Auto) [place] # (Auto) Eos # (Auto) Baso # (Auto) Immature Gran # (Auto) Sodium Potassium Chloride Carbon Dioxide Anion Gap BUN Creatinine Est Cr Clr Drug Dosing eGFR BUN/Creatinine Ratio Glucose Calcium Magnesium Total Bilirubin AST ALT Alkaline Phosphatase Troponin I High Sens 2708.1 H* D 3212.5 H* Total Protein Albumin Globulin Albumin/Globulin Ratio Enterobacterales (PCR) DETECTED A E. coli (PCR) DETECTED A mcr-1 Colistin Res Gene PCR Not Detected blaIMP Car res Gene PCR Not Detected KPC-Carbap Res Gene PCR Not Detected blaNDM Car Res Gene PCR Not Detected OXA-48 Carbapenem Resis Gene (PCR) Not Detected blaVIM Car Res Gene PCR Not Detected CTX-M Gene Resistance (PCR) DETECTED A* Bld Cult ID Panel PCR See PCR Comment 07/07/24 06:21 WBC 19.38 H RBC 4.07 L Hgb 12.6 L Hct 38.6 L MCV 94.8 MCH 31.0 MCHC 32.6 RDW Std Deviation 52.7 H RDW Coeff of Eyal 15.2 H Plt Count 119 L MPV 9.8 Immature Gran % (Auto) 0.6 Neut % (Auto) 92.4 Lymph % (Auto) 2.4 [place] % (Auto) 4.1 Eos % (Auto) 0.3 Baso % (Auto) 0.2 Neut # (Auto) 17.92 H Lymph # (Auto) 0.46 L [place] # (Auto) 0.80 H Eos # (Auto) 0.06 Baso # (Auto) 0.03 Immature Gran # (Auto) 0.11 Sodium 139 Potassium 3.8 Chloride 109 H Carbon Dioxide 23 Anion Gap 7 BUN 18 Creatinine 1.12 Est Cr Clr Drug Dosing 61.8 eGFR 66.83 BUN/Creatinine Ratio 16.1 Glucose 91 Calcium 8.5 L Magnesium 2.1 Total Bilirubin 0.6 AST 25 ALT 13 Alkaline Phosphatase 50 Troponin I High Sens Total Protein 5.1 L Albumin 3.3 L Globulin 1.8 L Albumin/Globulin Ratio 1.8 Enterobacterales (PCR) E. coli (PCR) mcr-1 Colistin Res Gene PCR blaIMP Car res Gene PCR KPC-Carbap Res Gene PCR blaNDM Car Res Gene PCR OXA-48 Carbapenem Resis Gene (PCR) blaVIM Car Res Gene PCR CTX-M Gene Resistance (PCR) Bld Cult ID Panel PCR Diagnostic Findings Chest x-ray did not demonstrate any acute cardiopulmonary findings. Chest CT did not demonstrate any evidence of pneumonia. Echocardiogram dated 07/06/2024: Normal LV systolic function with ejection fraction 55 to 60%. Normal wall motion. Mild LVH. Mild to moderate mitral regurgitation. Mild mitral annular calcification and aortic sclerosis. Mildly dilated ascending aorta. Dobutamine echocardiogram 03/15/2023: Normal LV systolic function with good augmentation no evidence of inducible ischemia. Echocardiogram dated 03/15/2023: Normal LV systolic function with ejection fraction 55 to 60%. Mild LVH. Mild to moderate aortic regurgitation. Mild mitral regurgitation. Mitral annular calcification and aortic valve sclerosis. PG Care Time/CCT Total # of Minutes Spent Total Time Spent with Patient: Total time spent is greater than 50% in coordination of care (as documented) at patient's floor/unit and/or counseling patient: Coding Level of Care Code 38361 INT INP/OBS CARE MIN Diagnoses NSTEMI (non-ST elevated myocardial infarction) I21.4 Elevated troponin R79.89 SVT (supraventricular tachycardia) I47.10
[2024-07-07] MEDS: OPTIRAY 320 100ml IV ONE (23:39)
--- NOTE | 2024-07-08 06:52 | Hospitalist Progress Note ---
Date of Service July 08, 2024 Assessment & Plan (1) Sepsis: Plan: Jarret is a 79yo man with h/o Multiple Myeloma s/p bone marrow transplant, reactive airway dz, complicated PNAs including PCP and cryptococcal (2021), Afib, and PE on chronic DOAC therapy, who presented with generalized weakness and dyspnea. - On arrival, met SIRS criteria w/ HR > 90, RR > 20; no identifiable source of infection - O2 sat 87% on RA, required 2-4L n.c. to maintain > 90%; VBG pCO2 36, O2 sat < 60 - Leukocytosis w neutrophil predominance; down from 19.38 yesterday to 12.05 today - UA with 2+ blood, BioFire negative, Lactate 3.8-->2.5, procal 1.05 - Given 2g IV Cefepime and 1L NSS in ED - Blood cx w gram-neg bacilli x2 (E. coli ESBL) - UCx prelim no growth - Per pulm: social gram-negative bacteremia is most likely GI; recommend CT abdomen and pelvis No acute abdominal process identified - Continue Ertapenem 1000mg IV q24h (2) NSTEMI (non-ST elevated myocardial infarction): Plan: - Recently worsening WRIGHT but never any chest pain, no h/o statin or blood thinner use - Trop 516 --> 1780 --> 2708 --> 3212 - Per cardiology: elevated troponin may be d/t demand ischemia; he has evidence of myocardial injury, likely a type II infarct related to his acute illness; further workup not recommended Admission and Anticipated Discharge Date Admission Date: July 06, 2024 Supervising Physician Co-Signing Physician Notes ATTESTATION I also saw the patient and confirmed sanchez portions of the history and exam. I agree with the impression and plan in the resident documentation, and as summarized below. Sleeping but awakens to voice. No new complaints. He tells me he slept fairly well overnight. Denies abdominal pain. EXAM 131/79, 76, 18, 36.6, 90% on 2 L of nasal cannula Alert and oriented. Non toxic; afebrile CV regular rate and rhythm Lungs with scattered crackles lower lobes, decreased volume overall DATA Labs White blood cell count trending down at 2.05, hemoglobin 12.5 Sodium 138, potassium 4.1, BUN 20, creatinine 1.06 LFTs are unremarkable Imaging CT scan of the abdomen completed 07/27 showed no acute findings. Did note a 1.9 cm diameter oval filling defect, polypoid lesion versus food product. W Micro Blood cultures from 07/06/24 show, ESBL E. coli, sensitivities to ertapenem, gentamicin, meropenem, and piperacillin/Arsh Urine culture from 07/06/24 no growth IMPRESSION & PLAN Gram Negative Sepsis, POA Source not entirely clear - urine culture was negative, and discussed with admitting physician and clarified that urine culture was drawn prior cefepime; CT of the abdomen pelvis shows no sign of acute infection Does have port placed and is immunosuppressed, so will consult ID for recommendations (duration of treatment, need for port change) Clinically improving; remains afebrile, white blood cell count improving Continue ertapenem, likely 14 days, but will defer to ID D/C munoz PT/OT assessment NSTEMI, Type II Chronic diastolic (congestive) HF Appreciate cardiology consultation Subtle LE edema, but overall euvolemic, so will monitor I/Os Resting echo completed and reviewed. Additional per resident documentation Subjective Reports feeling fine. NAEO. No questions or complaints today. Physical Exam 2 Physical Exam: Gen: NAD, WD/WN HEENT: NCAT, PERRL CV: RRR, no m/r/g Resp: CTAB, breathing non-labored Abd: Soft, NT/ND Skin: Warm, dry, pink, no rashes or lesions Results & Data Results & Data Vital Signs (Past 12 Hours) Vital Signs Temp Pulse Pulse Resp BP Pulse Ox O2 Del Method 07/08/24 04:24 36.5 C 66 17 115/72 94 Nasal Cannula 07/07/24 23:45 94 Nasal Cannula 07/07/24 22:14 36.5 C 73 21 160/80 H 98 Nasal Cannula 07/07/24 21:56 72 07/07/24 20:00 Nasal Cannula 07/07/24 19:58 36.4 C L 90 23 146/83 H 93 Room Air O2 Flow Rate 07/08/24 04:24 2 07/07/24 23:45 2 07/07/24 22:14 5 07/07/24 21:56 07/07/24 20:00 2 07/07/24 19:58 Laboratory Results 07/08/24 07:18 07/08/24 07:18 Diagnostic Findings Abdomen/Pelvis CT 07/07/24 18:08 Exam(s): CT ABDOMEN + PELVIS With Contrast Oral - High Density Amt: barium , IV Amt: 93 ml opti 320 EXAM: CT Abdomen and Pelvis With Intravenous Contrast CLINICAL HISTORY: Reason for exam: Gram-neg bacteremia potential GI cause. TECHNIQUE: Axial computed tomography images of the abdomen and pelvis with intravenous contrast. CTDI is 27.47 mGy and DLP is 1512.6 mGy-cm. Automated exposure control was utilized for the study. A dose lowering technique was utilized adhering to the principles of ALARA. CONTRAST: Patient received barium of Oral - High Density and 93 ml opti 320 of IV contrast COMPARISON: No relevant prior studies available. FINDINGS: Lung bases: Discoid atelectasis seen in the dependent lung bases. Moderate prostatomegaly. Heart: Severe coronary vascular calcifications are seen. ABDOMEN: Liver: Unremarkable. No mass. Gallbladder and bile ducts: Unremarkable. No calcified stones. No ductal dilation. Pancreas: Unremarkable. No mass. No ductal dilation. Spleen: Unremarkable. No splenomegaly. Adrenals: Unremarkable. No mass. Kidneys and ureters: Unremarkable. No solid mass. No hydronephrosis. Stomach and bowel: Mild sigmoid colonic diverticulosis. 1.9 cm diameter oval filling defect seen in the small bowel on image 41, series 2. No obstruction. No mucosal thickening. There is proximal small bowel diverticulosis. PELVIS: Appendix: No findings to suggest acute appendicitis. Bladder: The urinary bladder is decompressed. Reproductive: Unremarkable as visualized. ABDOMEN and PELVIS: Intraperitoneal space: Unremarkable. No free air. No significant fluid collection. Bones/joints: The bones are osteopenic. Chronic mild compression changes seen in the T11, T12, L1 and L2 levels. No dislocation. Soft tissues: Unremarkable. Vasculature: Ascending aorta caliber measures up to 4 cm in diameter. Lymph nodes: Unremarkable. No enlarged lymph nodes. IMPRESSION: No acute abdominal process identified 1.9 cm diameter oval filling defect in the small bowel proximal which could possibly represent a polypoid lesion or food product. Electronically signed by: Ricky Pulliam MD 07/08/24 08:15 AM Resident Activity Tracking Resident Involvement: Resident Care Provided Care Provided: [facility]
[2024-07-08 07:58] LABS: Hematocrit (blood only) 38.6 % (42.0-52.0); Hemoglobin 12.5 g/dl (14.0-18.0); Mean Corpuscular Hemoglobin 30.6 pg (25.0-34.0); Mean Corpuscular Hgb Conc 32.4 g/dL (32.0-36.0); Mean Corpuscular Volume 94.4 fL (80.0-100.0); Mean Platelet Volume 10.7 fL (9.4-12.4); Platelet Count 109 K/uL (130-400); RDW Coefficient of Variation 14.8 % (11.5-14.5); RDW Standard Deviation 51.1 fL (36.4-46.3); Red Blood Count 4.09 M/uL (4.70-6.10); White Blood Count 12.05 K/ul (4.8-10.8)
--- NOTE | 2024-07-08 08:16 | CT Scan Report ---
Exam(s): CT ABDOMEN + PELVIS With Contrast Oral - High Density Amt: barium , IV Amt: 93 ml opti 320 EXAM: CT Abdomen and Pelvis With Intravenous Contrast CLINICAL HISTORY: Reason for exam: Gram-neg bacteremia potential GI cause. TECHNIQUE: Axial computed tomography images of the abdomen and pelvis with intravenous contrast. CTDI is 27.47 mGy and DLP is 1512.6 mGy-cm. Automated exposure control was utilized for the study. A dose lowering technique was utilized adhering to the principles of ALARA. CONTRAST: Patient received barium of Oral - High Density and 93 ml opti 320 of IV contrast COMPARISON: No relevant prior studies available. FINDINGS: Lung bases: Discoid atelectasis seen in the dependent lung bases. Moderate prostatomegaly. Heart: Severe coronary vascular calcifications are seen. ABDOMEN: Liver: Unremarkable. No mass. Gallbladder and bile ducts: Unremarkable. No calcified stones. No ductal dilation. Pancreas: Unremarkable. No mass. No ductal dilation. Spleen: Unremarkable. No splenomegaly. Adrenals: Unremarkable. No mass. Kidneys and ureters: Unremarkable. No solid mass. No hydronephrosis. Stomach and bowel: Mild sigmoid colonic diverticulosis. 1.9 cm diameter oval filling defect seen in the small bowel on image 41, series 2. No obstruction. No mucosal thickening. There is proximal small bowel diverticulosis. PELVIS: Appendix: No findings to suggest acute appendicitis. Bladder: The urinary bladder is decompressed. Reproductive: Unremarkable as visualized. ABDOMEN and PELVIS: Intraperitoneal space: Unremarkable. No free air. No significant fluid collection. Bones/joints: The bones are osteopenic. Chronic mild compression changes seen in the T11, T12, L1 and L2 levels. No dislocation. Soft tissues: Unremarkable. Vasculature: Ascending aorta caliber measures up to 4 cm in diameter. Lymph nodes: Unremarkable. No enlarged lymph nodes. IMPRESSION: No acute abdominal process identified 1.9 cm diameter oval filling defect in the small bowel proximal which could possibly represent a polypoid lesion or food product. Electronically signed by: Ricky Pulliam MD 07/08/24 08:15 AM
[2024-07-08 08:37] LABS: Albumin Level 3.4 gm/dl (3.4-5.0); Bilirubin,Total 0.4 mg/dl (0.2-1.0); Calcium 8.7 mg/dl (8.6-10.3); Potassium 4.1 mmol/L (3.5-5.1)
[2024-07-08 08:43] LABS: Albumin Globulin Ratio 1.8 (0.9-2); BUN Creatinine Ratio 18.9 (10-20); Creatinine Clr Calc Pharmacy 64.9 ml/min; Globulin 1.9 gm/dl (2.5-4.0); Total Protein 5.3 gm/dl (6.0-8.3)
--- NOTE | 2024-07-09 07:35 | Hospitalist Progress Note ---
Date of Service July 09, 2024 Assessment & Plan (1) Sepsis: Plan: Jarret is a 79yo man with h/o Multiple Myeloma s/p bone marrow transplant, reactive airway dz, complicated PNAs including PCP and cryptococcal (2021), Afib, and PE on chronic DOAC therapy, who presented with generalized weakness and dyspnea. - On arrival, met SIRS criteria w/ HR > 90, RR > 20; no identifiable source of infection - O2 sat 87% on RA, required 2-4L n.c. to maintain > 90%; VBG pCO2 36, O2 sat < 60 - Now AFVSS, O2 sat >90 on RA - Leukocytosis w neutrophil predominance; peaked 19.38, now wnl - UA with 2+ blood, BioFire negative, Lactate 3.8-->2.5, procal 1.05 - Given 2g IV Cefepime and 1L NSS in ED - Blood cx w gram-neg bacilli x2 (E. coli ESBL) Sensitive to Ertapenem, Gentamicin, Meropenem, and Pip/Tazo - UCx showed no growth - Per pulm: social gram-negative bacteremia is most likely GI; recommend CT abdomen and pelvis CTAP on 07/07 showed no acute abdominal process identified - Continue Ertapenem 1000mg IV q24h - Appreciate ID reccs on identifying source of infection and antibiotic selection for discharge (2) NSTEMI (non-ST elevated myocardial infarction): Plan: - Recently worsening WRIGHT but never any chest pain, no h/o statin or blood thinner use - Trop 516 --> 1780 --> 2708 --> 3212 - TTE on 07/06 showed mild-mod MR & no other significant structural or functional abnormality - Per cardiology: elevated troponin may be d/t demand ischemia; he has evidence of myocardial injury, likely a type II infarct related to his acute illness; further workup not recommended Plan PT/OT eval before discharge Admission and Anticipated Discharge Date Admission Date: July 06, 2024 Supervising Physician Co-Signing Physician Notes ATTESTATION I also saw the patient and confirmed sanchez portions of the history and exam. I agree with the impression and plan in the resident documentation, and as summarized below. No complaints this morning. Gonzalez has been removed. Denies abdominal pain. No dyspnea. No chest pain. EXAM 169/85, 69. 20 Alert and oriented. Non toxic; afebrile CV regular rate and rhythm Lungs with scattered crackles lower lobes, improved air movement compared to yesterday DATA Labs White blood cell count normalized at 8.54; HgB 13 Sodium 140, potassium 4.0, BUN 19, creatinine 1.[address] scan of the abdomen completed 07/27 showed no acute findings. Did note a 1.9 cm diameter oval filling defect, polypoid lesion versus food product. Micro Blood cultures from 07/06/24 show, ESBL E. coli, sensitivities to ertapenem, gentamicin, meropenem, and piperacillin/Arsh Urine culture from 07/06/24 no growth IMPRESSION & PLAN Gram Negative Sepsis, POA Source not entirely clear - urine culture was negative, and discussed with admitting physician and clarified that urine culture was drawn prior cefepime; CT of the abdomen pelvis shows no sign of acute infection Does have port placed and is immunosuppressed, so will consult ID for recommendations (duration of treatment, need for port change) Continues to improve clinically (afebrile, normalization of leukocytosis) and symptomatically (decreased weakness) Continue ertapenem, likely 14 days, but will defer to ID PT/OT assessment; increase activity NSTEMI, Type II Chronic diastolic (congestive) HF Appreciate cardiology consultation Subtle LE edema, but overall euvolemic, so will monitor I/Os (negative 1.1L net this admission) Resting echo completed and reviewed. Additional per resident documentation Subjective Feeling well today. Reports sleeping well, getting out of bed and walking around room a bit, going to the bathroom w/o issue. Denies SOLIS, dizziness, SOB, CP, n/v/c/d, abd pain, flank pain, dysuria. No questions or complaints at this time. Review of Systems 2 Review of Systems: As per HPI. Physical Exam 2 Physical Exam: Gen: NAD, WD/WN HEENT: NCAT, PERRL CV: RRR, no m/r/g Resp: CTAB, breathing non-labored Abd: Soft, NT/ND Skin: Warm, dry, pink, no rashes or lesions Results & Data Results & Data Vital Signs (Past 12 Hours) Vital Signs Temp Pulse Pulse Resp BP Pulse Ox O2 Del Method 07/09/24 06:00 67 07/09/24 03:47 36.8 C 74 17 135/74 90 Room Air 07/08/24 23:15 36.7 C 74 22 149/84 H 93 Room Air 07/08/24 22:15 73 07/08/24 19:50 36.4 C L 79 23 168/86 H 92 Room Air 07/08/24 19:45 Room Air Laboratory Results 07/09/24 06:47 07/09/24 06:47 Resident Activity Tracking Resident Involvement: Resident Care Provided Care Provided: Adult [facility]
[2024-07-09 07:53] LABS: Basophils # (auto) 0.02 K/uL (0.00-0.20); Basophils % (auto) 0.2 %; Eosinophils # (auto) 0.21 K/uL (0.00-0.50); Eosinophils % (auto) 2.5 %; Immature Granulocytes # (auto) 0.07 K/uL (0.01-0.20); Immature Granulocytes % (auto) 0.8 %; Lymphocytes # (auto) 0.61 K/uL (1.20-3.40); Lymphocytes % (auto) 7.1 %; Mean Corpuscular Hemoglobin 30.6 pg (25.0-34.0); Mean Corpuscular Hgb Conc 32.5 g/dL (32.0-36.0); Mean Corpuscular Volume 94.1 fL (80.0-100.0); Mean Platelet Volume 10.1 fL (9.4-12.4); Monocytes # (auto) 0.55 K/uL (0.11-0.59); Monocytes % (auto) 6.4 %; Neutrophils # (auto) 7.08 K/uL (1.40-6.50); Platelet Count 138 K/uL (130-400); RDW Coefficient of Variation 14.6 % (11.5-14.5); RDW Standard Deviation 50.8 fL (36.4-46.3); Red Blood Count 4.25 M/uL (4.70-6.10); White Blood Count 8.54 K/ul (4.8-10.8)
[2024-07-09 08:09] LABS: BUN Creatinine Ratio 18.1 (10-20); Calcium 8.9 mg/dl (8.6-10.3); Creatinine Clr Calc Pharmacy 65.1 ml/min
--- NOTE | 2024-07-09 20:39 | Electrocardiogram Report ---
Test Reason : Blood Pressure : */* mmHG Vent. Rate : 140 BPM Atrial Rate : 140 BPM P-R Int : 124 ms QRS Dur : 102 ms QT Int : 292 ms P-R-T Axes : 48 -65 93 degrees QTcB Int : 445 ms Sinus tachycardia Left anterior fascicular block Left ventricular hypertrophy with repolarization abnormality ( R in aVL , [place] product ) Abnormal ECG When compared with ECG of 15-Mar-2023 10:06, Vent. rate has increased by 67 bpm T wave inversion no longer evident in Inferior leads Confirmed by Kurt Araujo ([id number]) on 07/09/2024 8:39:00 PM Referred By: REFERRED SELF Confirmed By: Kurt Araujo
--- NOTE | 2024-07-10 06:41 | Hospitalist Progress Note ---
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 #Bacteremia - On arrival, met SIRS criteria w/ HR > 90, RR > 20; no identifiable source of infection; O2 sat 87% on RA, requiring 2-4L O2; VBG pCO2 36, O2 sat < 60 - Now AFVSS, O2 sat >90 on RA - Leukocytosis w neutrophil predominance; peaked 19.38, now wnl - UA with 2+ blood, BioFire negative, Lactate 3.8-->2.5, procal 1.05 - Given 2g IV Cefepime and 1L NSS in ED - Blood cx w gram-neg bacilli x2 (E. coli ESBL) Sensitive to Ertapenem, Gentamicin, Meropenem, and Pip/Tazo - UCx showed no growth - Per pulm: social gram-negative bacteremia is most likely GI; recommend CT abdomen and pelvis CTAP on 07/07 showed no acute abdominal process identified - Continue Ertapenem 1000mg IV q24h - Appreciate ID reccs on identifying source of infection and antibiotic selection for discharge - PT/OT eval before discharge #Elevated troponins - Resolved - A/w recently worsening WRIGHT but never any chest pain, no h/o statin or blood thinner use - Trop 516 --> 1780 --> 2708 --> 3212 - TTE on 07/06 showed mild-mod MR & no other significant structural or functional abnormality - Per cardiology: may be demand ischemia; he has evidence of myocardial injury, likely a type II infarct related to his acute illness; further workup not recommended Admission and Anticipated Discharge Date Admission Date: July 06, 2024 Supervising Physician Co-Signing Physician Notes I personally examined the patient and verified all sanchez points of history and exam, discussed case, and agree with decision making with Dr Trejo feeling fine. ID input appreciated. vitals noted nad heent nc at mmm port site c/d/i no erythema no fluctuance IMPRESSION & PLAN Gram Negative Sepsis, POA Bacterial translocation from GI tract, UTIall possible. Getting better on ertapenem. Appreciate ID input. Working on disposition. NSTEMI, Type II Chronic diastolic (congestive) HF Appreciate cardiology consultation Subtle LE edema, but overall euvolemic, so will monitor I/Os (negative 1.1L net this admission) Resting echo completed and reviewed. Additional per resident documentation Subjective Doing well this morning. Reports sleeping so well he didn't even hear the rain. Did get oob and to the toilet himself. Reports he didn't "quite make it" but was able to clean himself up. No questions or concerns today. Review of Systems 2 Review of Systems: As per HPI. Physical Exam 2 Physical Exam: Gen: NAD, WD/WN HEENT: NCAT, PERRL CV: RRR, no m/r/g Resp: CTAB, breathing non-labored Abd: Soft, NT/ND Skin: Warm, dry, pink, no rashes or lesions Results & Data Results & Data Vital Signs (Past 12 Hours) Vital Signs Temp Pulse Pulse Pulse Resp BP BP 07/10/24 03:38 36.6 C 77 18 153/78 H 07/09/24 23:58 83 07/09/24 23:43 36.7 C 78 18 144/76 H 07/09/24 20:16 36.8 C 71 20 128/82 Pulse Ox O2 Del Method 07/10/24 03:38 93 Room Air 07/09/24 23:58 07/09/24 23:43 92 Room Air 07/09/24 20:16 94 Room Air Laboratory Results 07/10/24 06:39 07/10/24 06:39 Resident Activity Tracking Resident Involvement: Resident Care Provided Care Provided: Adult Hospital Medicine
[2024-07-10 06:54] LABS: Basophils # (auto) 0.03 K/uL (0.00-0.20); Basophils % (auto) 0.4 %; Eosinophils # (auto) 0.22 K/uL (0.00-0.50); Eosinophils % (auto) 2.8 %; Hemoglobin 13.5 g/dl (14.0-18.0); Immature Granulocytes # (auto) 0.08 K/uL (0.01-0.20); Lymphocytes # (auto) 0.82 K/uL (1.20-3.40); Lymphocytes % (auto) 10.3 %; Mean Corpuscular Hemoglobin 30.7 pg (25.0-34.0); Mean Corpuscular Hgb Conc 32.9 g/dL (32.0-36.0); Mean Corpuscular Volume 93.2 fL (80.0-100.0); Mean Platelet Volume 9.8 fL (9.4-12.4); Monocytes # (auto) 0.49 K/uL (0.11-0.59); Monocytes % (auto) 6.2 %; Neutrophils # (auto) 6.29 K/uL (1.40-6.50); Neutrophils % (auto) 79.3 %; Platelet Count 146 K/uL (130-400); RDW Coefficient of Variation 14.5 % (11.5-14.5); RDW Standard Deviation 49.9 fL (36.4-46.3); White Blood Count 7.93 K/ul (4.8-10.8)
[2024-07-10 07:18] LABS: BUN Creatinine Ratio 16.5 (10-20); Calcium 9.2 mg/dl (8.6-10.3); Creatinine Clr Calc Pharmacy 59.6 ml/min; Potassium 4.1 mmol/L (3.5-5.1)
--- NOTE | 2024-07-10 14:41 | Infectious Disease Consult ---
Date of Consultation July 10, 2024 Assessment & Plan (1) Gram-negative bacteremia: (2) ESBL (extended spectrum beta-lactamase) producing bacteria infection: (3) Multiple myeloma: Plan This is a 79-year-old male with a past medical history of multiple myeloma status post autologous stem cell transplant 12/2016, failed maintenance Velcade and currently on daratumumab, paroxysmal A-fib, HFpEF, PE on Lovenox, PJP and cryptococcal pneumonia who presents with lethargy, nausea with subsequent vomiting. He endorsed left flank pain, fever, chills and intermittent diarrhea. He had some shortness of breath but this has resolved. He denies headaches, chest pain, rash, sweats, change in urine habits or hemoptysis. In the ED he is febrile with a T38.9, heart rate 145, blood pressure 163/110, O2 sats 87% room air 95% on 2 L. Labs: WBC 11.57-->19.38 BUN 20, creatinine 1.19. Respiratory viral panel negative. Urinalysis with 0-5 WBC, greater than 20 RBC, no bacteria seen. Chest x-ray with cardiomegaly without acute cardiopulmonary process. CT chest with no acute intrathoracic abnormality. Irregular subpleural consolidative opacities of the right upper and left lower lobe are stable. Multifocal lytic lesions re-demonstrated and c/w diagnosis of multiple myeloma. Chronic pathological compression deformities noted. Head CT with no hemorrhage, mass effect or ischemia. Blood culture positive for ESBL E. coli in /4 bottles. He initially received a dose of cefepime and is now on ertapenem. Infectious disease consulted for gram-negative du bacteremia. On my exam,he is comfortable. He denies any abdominal pain. Admits to intermittent diarrhea but currently stools are formed. Nausea and vomiting resolved. WBC down to 7.93. He is afebrile for > 48 hours. Microbiology: Blood cultures 07/06/24 4/ bottles ESBL E. coli Urine culture 07/23/2024 <1K CFU Antibiotics: Cefepime 10/ Ertapenem 10/ongoing Acyclovir p.o. (prophylaxis) #ESBL ecoli bacteremia/sepsis # Leukocytosis,Fevers; resolved # Left IJ port # Intermittent diarrhea, none currently #Multiple Myeloma #S/P autologous stem cell transplant #H/ocryptococcus pneumonia and PJP, treated #Stable pleural based and pulmonary nodules # Bactrim , hallucinations # Levaquin, muscle weakness Discussion: Source of his ESBL E. coli bacteremia is unknown at this time. He denies symptoms. Has had intermittent diarrhea but none currently. Abdomen is benign on exam. No CVA or suprapubic tenderness. CTAB unremarkable. He is immunocompromise status post stem cell transplant on daratumumab monthly and has a left IJ in place. No jose signs of infection , but a line infection should be ruled out. He denies other prosthetics/hardware/grafts. Transthoracic cardiac echocardiogram done on 07/06 shows moderate aortic valve sclerosis, without aortic valve stenosis; mild mitral annular calcification, mild to moderate mitral regurgitation. He has a history of skin cancer with chronic skin lesions but no open wounds or lesions that appear acutely infected. He denies new or worsening pulmonary symptoms. Recommendations: Continue Ertapenem 1 g IV daily Repeat blood cultures. If repeat blood cultures sterile, would treat for 2 weeks with IV antibiotics. If repeat blood cultures positive, would consider KAR[place] and LIJ port removal If diarrhea recurs, check stool culture If greater than 3 loose bowel movements, check GI PCR Thank you for this consult. ID will continue to follow Mavis Chavarria MD, MPH Infectious Disease [facility], [facility] Call [phone] with questions Consultation Information Consultation was provided via telemedicine using two-way real-time interactive telecommunication between the patient and the telemedicine provider. For the duration of the visit, the provider was performing the assessment from a different facility than the patient. This includesuse of bluetooth stethoscope forauscultationperformed by the telepresenter that the telemedicine provider can hear if described in the physical exam. Amusement Machine Mechanic contact information: Please call [facility] Center . (Phone Number For Physician Use Only) After establishing a telemedicine visit, patient was: Patient was verified with two unique identifiers Time Spent with Patient: Initial => 75 min History of Present Illness Reason for Consultation: Gram negative bacteremia, unknown source Requesting Physician: Mayra Trejo MD Attending Physician: Andrew Ambrosio DO History of Present Illness This is a 79-year-old male with a past medical history of multiple myeloma status post autologous stem cell transplant 12/2016, failed maintenance Velcade and currently on daratumumab, paroxysmal A-fib, HFpEF, PE on Lovenox, PJP and cryptococcal pneumonia who presents with lethargy, nausea with subsequent vomiting. He endorsed left flank pain, fever, chills and intermittent diarrhea. He had some shortness of breath but this has resolved. He denies headaches, chest pain, rash, sweats, change in urine habits or hemoptysis. In the ED he is febrile with a T38.9, heart rate 145, blood pressure 163/110, O2 sats 87% room air 95% on 2 L. Labs: WBC 11.57-->19.38 BUN 20, creatinine 1.19. Respiratory viral panel negative. Urinalysis with 0-5 WBC, greater than 20 RBC, no bacteria seen. Chest x-ray with cardiomegaly without acute cardiopulmonary process. CT chest with no acute intrathoracic abnormality. Irregular subpleural consolidative opacities of the right upper and left lower lobe are stable. Multifocal lytic lesions re-demonstrated and c/w diagnosis of multiple myeloma. Chronic pathological compression deformities noted. Head CT with no hemorrhage, mass effect or ischemia. Blood culture positive for ESBL E. coli in 4/4 bottles. He initially received a dose of cefepime and is now on ertapenem. Infectious disease consulted for gram-negative du bacteremia. On my exam,he is comfortable. He denies any abdominal pain. Admits to intermittent diarrhea but currently stools are formed. Nausea and vomiting resolved. WBC down to 7.93. He is afebrile for > 48 hours. Allergies Allergy/AdvReac Type Severity Reaction Status Date / Time dexamethasone AdvReac Severe Hallucinati Verified 07/06/24 11:32 on prednisone AdvReac Severe hallucinati Verified 07/06/24 11:32 ons meclizine AdvReac Intermediate HALLUCINATI Verified 07/06/24 11:32 ON sulfamethoxazole AdvReac Intermediate Hallucinati Verified 07/06/24 11:32 [From Bactrim] ng trimethoprim [From Bactrim] AdvReac Intermediate Hallucinati Verified 07/06/24 11:32 ng hydrocodone AdvReac Mild AGITATION Verified 07/06/24 11:32 levofloxacin [From Levaquin] AdvReac Mild muscle Verified 07/06/24 11:32 weakness lisinopril AdvReac Mild Dizziness Verified 07/06/24 11:32 Home Medications Medication Instructions Recorded Confirmed Type acyclovir 400 mg tablet 400 mg PO BID 08/02/18 07/06/24 History citalopram 10 mg tablet 10 mg PO QAM 04/25/19 07/06/24 History folic acid 1 mg tablet 1 mg PO QAM #30 tabs 04/03/22 07/06/24 Rx magnesium oxide 400 mg (241.3 mg 400 mg PO QAM #30 tabs 04/03/22 07/06/24 Rx magnesium) tablet metoprolol tartrate 25 mg tablet 25 mg PO BID #60 tabs 04/03/22 07/06/24 Rx thiamine HCl (vitamin B1) 100 mg 200 mg (2 x 100 mg) PO BID #60 tabs 04/03/22 07/06/24 Rx tablet cetirizine 10 mg tablet (Zyrtec) 10 mg PO DAILY Allergy Symptoms 07/28/23 07/06/24 History daratumumab 20 mg/mL intravenous See Rx Instructions IV MONTHLY 07/28/23 07/06/24 History solution Breo Ellipta 200 mcg-25 mcg/dose 1 inh inhalation QAM #60 ea 12/13/23 07/06/24 Rx powder for inhalation (fluticasone furoate-vilanterol) potassium citrate 10 mEq (1,080 1,080 mg PO DAILY 90 days #90 tabs 03/02/24 07/06/24 Rx mg) tablet,extended release dexamethasone 4 mg tablet 0 mg PO UD Treatment Days 03/21/24 07/06/24 History pantoprazole 40 mg tablet,delayed 40 mg PO DAILY 03/21/24 07/06/24 History release apixaban 5 mg tablet (Eliquis) 5 mg PO BID #180 tabs 07/03/24 07/06/24 Rx cyanocobalamin (vitamin B-12) 1,000 mcg PO Q OTHER DAY 07/06/24 07/06/24 History 1,000 mcg tablet (Vitamin B-12) ergocalciferol (vitamin D2) 1,250 50,000 unit PO WK 07/06/24 07/06/24 History mcg (50,000 unit) capsule sennosides 8.6 mg-docusate sodium 1 tab-cap PO DAILY PRN Constipation 07/06/24 07/06/24 History 50 mg tablet (Senna Plus) Patient History Medical History (HFpEF) heart failure with preserved ejection fraction Anemia BASELINE 8-9 RANGE BPH loc w urin obs/LUTS Calculus of kidney Cancer MULTIPLE MYELOMA (DX'D 2015); stem cell transplant, chemo Cryptococcal pneumonitis Current use of skilled nursing anticoagulation Depression GERD (gastroesophageal reflux disease) Gout History of nephrolithiasis History of pneumothorax 2020 with lung biopsy History of pulmonary embolism [place] (hard of hearing) Irregular heartbeat 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 Port-A-Cath in place Left chest Pulmonary embolism 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); 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 SOB (shortness of breath) on exertion Thrombocytopenia Tremor Surgical History Bone marrow replaced by transplant History of cataract surgery RT History of chest tube placement History of lung biopsy benign Family History Father Cardiac disorder Heart disease Mother Cancer Stroke Other No family history of adverse response to anesthesia Social History Smoking Status: Never smoker Second Hand Exposure: No; Do You Dip or Chew Tobacco: No; Hx Alcohol Use: No Hx Substance Use: No Preferred Language: [place] Communication Ability: Effective Communication Ability Comment: hard of hearing Visual Impairment: No Limitations Planning Feeder Required: No Beliefs That Will Affect Care: None marital status: Current Living Situation: Spouse current occupational status: retired How many Children do You have: 0 Other Information That Helps Us Care for You: No Feels Safe at Home: Yes Safety Concerns: Feels Safe At This Time Diet: regular during the past year weight has: remained stable Assistive Devices: Cane and Walker Review of System A 10 point ROS obtained. Pertinent Positives as per HPI. Physical Exam Physical Exam: Gen: NAD, eating breakfast Skin - chronic small nodular lesions on neck( Pt states he was diagnosed with skin cancer) Left back lesion ( chronic per pt). No cellulitis or wounds/ulcers MSK- no spinal TTP, no joint effusions HEENT- NCAT, poor dentition, multiple fillings, no ulcers or tenderness to palpation Neck- supple Abdomen- soft, NT, ND Lung- No increased work of breathing Left IJ port. No tenderness at site Extremity- Right chronic foot edema. No L foot edema. Neuro- Awake, alert oriented times Psych- cooperative, normal mood Results & Data Vital Signs (Past 12 Hours) Vital Signs Temp Pulse Resp BP BP Pulse Ox O2 Del Method 07/10/24 11:36 36.7 C 73 18 151/106 H 94 Room Air 07/10/24 08:00 36.8 C 87 18 138/92 97 Room Air 07/10/24 03:38 36.6 C 77 18 153/78 H 93 Room Air Laboratory Results Laboratory Results - last 48 hr 07/09/24 07/10/24 06:47 06:39 WBC 8.54 7.93 RBC 4.25 L 4.40 L Hgb 13.0 L 13.5 L Hct 40.0 L 41.0 L MCV 94.1 93.2 MCH 30.6 30.7 MCHC 32.5 32.9 RDW Std Deviation 50.8 H 49.9 H RDW Coeff of Eyal 14.6 H 14.5 Plt Count 138 146 MPV 10.1 9.8 Immature Gran % (Auto) 0.8 1.0 Neut % (Auto) 83.0 79.3 Lymph % (Auto) 7.[address] [place] % (Auto) 6.4 6.2 Eos % (Auto) 2.5 2.8 Baso % (Auto) 0.2 0.4 Neut # (Auto) 7.08 H 6.29 Lymph # (Auto) 0.[address] [place] # (Auto) 0.55 0.49 Eos # (Auto) 0.21 0.22 Baso # (Auto) 0.02 0.03 Immature Gran # (Auto) 0.07 0.08 Sodium 140 140 Potassium 4.0 4.1 Chloride 108 H 107 Carbon Dioxide 26 26 Anion Gap 6 7 BUN 19 19 Creatinine 1.05 1.15 Est Cr Clr Drug Dosing 65.1 59.6 eGFR 72.21 64.74 BUN/Creatinine Ratio 18.1 16.5 Glucose 93 96 Calcium 8.9 9.2 Diagnostic Findings Microbiology 07/06/24 09:20 Urine,Indwelling Cath Urine Culture - Final No growth - less than 1,000 colonies/mL. 07/06/24 10:40 Blood Aerobic Blood Culture - Final Escherichia coli ESBL 07/06/24 10:40 Blood Anaerobic Blood Culture - Final Escherichia coli ESBL 07/06/24 09:38 Blood Aerobic Blood Culture - Final Escherichia coli ESBL 07/06/24 09:38 Blood Anaerobic Blood Culture - Final Escherichia coli ESBL Abdomen/Pelvis CT 07/07/24 18:08 Exam(s): CT ABDOMEN + PELVIS With Contrast Oral - High Density Amt: barium , IV Amt: 93 ml opti 320 EXAM: CT Abdomen and Pelvis With Intravenous Contrast CLINICAL HISTORY: Reason for exam: Gram-neg bacteremia potential GI cause. TECHNIQUE: Axial computed tomography images of the abdomen and pelvis with intravenous contrast. CTDI is 27.47 mGy and DLP is 1512.6 mGy-cm. Automated exposure control was utilized for the study. A dose lowering technique was utilized adhering to the principles of ALARA. CONTRAST: Patient received barium of Oral - High Density and 93 ml opti 320 of IV contrast COMPARISON: No relevant prior studies available. FINDINGS: Lung bases: Discoid atelectasis seen in the dependent lung bases. Moderate prostatomegaly. Heart: Severe coronary vascular calcifications are seen. ABDOMEN: Liver: Unremarkable. No mass. Gallbladder and bile ducts: Unremarkable. No calcified stones. No ductal dilation. Pancreas: Unremarkable. No mass. No ductal dilation. Spleen: Unremarkable. No splenomegaly. Adrenals: Unremarkable. No mass. Kidneys and ureters: Unremarkable. No solid mass. No hydronephrosis. Stomach and bowel: Mild sigmoid colonic diverticulosis. 1.9 cm diameter oval filling defect seen in the small bowel on image 41, series 2. No obstruction. No mucosal thickening. There is proximal small bowel diverticulosis. PELVIS: Appendix: No findings to suggest acute appendicitis. Bladder: The urinary bladder is decompressed. Reproductive: Unremarkable as visualized. ABDOMEN and PELVIS: Intraperitoneal space: Unremarkable. No free air. No significant fluid collection. Bones/joints: The bones are osteopenic. Chronic mild compression changes seen in the T11, T12, L1 and L2 levels. No dislocation. Soft tissues: Unremarkable. Vasculature: Ascending aorta caliber measures up to 4 cm in diameter. Lymph nodes: Unremarkable. No enlarged lymph nodes. IMPRESSION: No acute abdominal process identified 1.9 cm diameter oval filling defect in the small bowel proximal which could possibly represent a polypoid lesion or food product. Electronically signed by: Ricky Pulliam MD 07/08/24 08:15 AM Medications Administered Home Medications Medication Instructions Recorded Confirmed Last Taken acyclovir 400 mg tablet 400 mg PO BID 08/02/18 07/06/24 03/01/22 08:00 citalopram 10 mg tablet 10 mg PO QAM 04/25/19 07/06/24 01/17/22 13:00 folic acid 1 mg tablet 1 mg PO QAM #30 tabs 04/03/22 07/06/24 Unknown magnesium oxide 400 mg (241.3 mg 400 mg PO QAM #30 tabs 04/03/22 07/06/24 Unknown magnesium) tablet metoprolol tartrate 25 mg tablet 25 mg PO BID #60 tabs 04/03/22 07/06/24 Unknown thiamine HCl (vitamin B1) 100 mg 200 mg (2 x 100 mg) PO BID #60 tabs 04/03/22 07/06/24 Unknown tablet cetirizine 10 mg tablet (Zyrtec) 10 mg PO DAILY Allergy Symptoms 07/28/23 07/06/24 Unknown daratumumab 20 mg/mL intravenous See Rx Instructions IV MONTHLY 07/28/23 07/06/24 06/28/24 solution Breo Ellipta 200 mcg-25 mcg/dose 1 inh inhalation QAM #60 ea 12/13/23 07/06/24 Unknown powder for inhalation (fluticasone furoate-vilanterol) potassium citrate 10 mEq (1,080 1,080 mg PO DAILY 90 days #90 tabs 03/02/24 07/06/24 Unknown mg) tablet,extended release dexamethasone 4 mg tablet 0 mg PO UD Treatment Days 03/21/24 07/06/24 Unknown pantoprazole 40 mg tablet,delayed 40 mg PO DAILY 03/21/24 07/06/24 Unknown release apixaban 5 mg tablet (Eliquis) 5 mg PO BID #180 tabs 07/03/24 07/06/24 Unknown cyanocobalamin (vitamin B-12) 1,000 mcg PO Q OTHER DAY 07/06/24 07/06/24 Unknown 1,000 mcg tablet (Vitamin B-12) ergocalciferol (vitamin D2) 1,250 50,000 unit PO WK 07/06/24 07/06/24 Unknown mcg (50,000 unit) capsule sennosides 8.6 mg-docusate sodium 1 tab-cap PO DAILY PRN Constipation 07/06/24 07/06/24 Unknown 50 mg tablet (Senna Plus) Active Medications Generic Name Dose Route Start Last Admin Trade Name Pierce PRN Reason Stop Dose Admin Acyclovir 400 mg 07/06/24 21:00 07/10/24 09:00 Acyclovir 400 Mg Tab PO 08/05/24 20:59 400 mg BID CYN Administration Apixaban 5 mg 07/06/24 12:15 07/10/24 09:00 Apixaban 5 Mg Tablet PO 08/05/24 12:14 5 mg BID CYN Administration Cetirizine HCl 10 mg 07/07/24 09:00 07/10/24 09:00 Cetirizine Hcl 10 Mg Tablet PO 08/06/24 08:59 10 mg DAILY CYN Administration Citalopram Hydrobromide 10 mg 07/07/24 09:00 07/10/24 09:00 Citalopram 20 Mg Tab PO 08/06/24 08:59 10 mg QAM CYN Administration Fluticasone/Vilanterol 1 puffs 07/07/24 09:00 07/10/24 09:00 Fluticasone/Vilanterol 200/25mcg 14 Puffs/Inhaler INH 08/06/24 08:59 1 puffs QAM CYN Administration Folic Acid 1 mg 07/07/24 09:00 07/10/24 09:00 Folic Acid 1 Mg Tab PO 08/06/24 08:59 1 mg QAM CYN Administration Ertapenem 1,000 mg in 10 mls @ 2 mls/min 07/06/24 23:15 07/10/24 00:04 Invanz 1000mg IV 07/20/24 23:14 2 mls/min Q24H CYN Administration Magnesium Oxide 400 mg 07/07/24 09:00 07/10/24 09:01 Magnesium Oxide 400 Mg Tab PO 08/06/24 08:59 400 mg BID CYN Administration Metoprolol Tartrate 25 mg 07/06/24 21:00 07/10/24 09:00 Metoprolol Tartrate 25 Mg Tab PO 08/05/24 20:59 25 mg BID CYN Administration Pantoprazole Sodium 40 mg 07/07/24 09:00 07/10/24 09:00 Pantoprazole 40 Mg Tab PO 08/06/24 08:59 40 mg DAILY CYN Administration Senna/Docusate Sodium 1 tab 07/07/24 09:00 07/10/24 08:59 Docusate Sodium/Senna 50/8.6mg Tab PO 08/06/24 08:59 Not Given DAILY CYN Thiamine HCl 200 mg 07/06/24 21:00 07/10/24 08:59 Thiamine Hcl 100 Mg Tab PO 08/05/24 20:59 200 mg BID CYN Administration
--- NOTE | 2024-07-10 18:47 | Billing Data ---
Date of Service July 10, 2024 Coding Level of Care Code 73305 SUB INP/OBS CARE
[2024-07-11 06:59] LABS: Basophils # (auto) 0.04 K/uL (0.00-0.20); Basophils % (auto) 0.4 %; Eosinophils # (auto) 0.28 K/uL (0.00-0.50); Eosinophils % (auto) 3.1 %; Hematocrit (blood only) 41.1 % (42.0-52.0); Hemoglobin 13.7 g/dl (14.0-18.0); Immature Granulocytes # (auto) 0.09 K/uL (0.01-0.20); Lymphocytes # (auto) 0.95 K/uL (1.20-3.40); Lymphocytes % (auto) 10.4 %; Mean Corpuscular Hgb Conc 33.3 g/dL (32.0-36.0); Mean Platelet Volume 9.7 fL (9.4-12.4); Monocytes # (auto) 0.61 K/uL (0.11-0.59); Monocytes % (auto) 6.7 %; Neutrophils # (auto) 7.13 K/uL (1.40-6.50); Neutrophils % (auto) 78.4 %; Platelet Count 159 K/uL (130-400); RDW Coefficient of Variation 14.3 % (11.5-14.5); RDW Standard Deviation 48.8 fL (36.4-46.3); Red Blood Count 4.42 M/uL (4.70-6.10)
--- NOTE | 2024-07-11 07:22 | Discharge Summary ---
Date of Service July 14, 2024 Admission HPI Per Admitting Provider Jarret is a 79 yo M with a pmhx of Multiple Myeloma s/p bone marrow transplant, reactive airway disease, history of complicated pneumonia including PCP and cryptococcal pneumonia in 2021, Afib, history of PE, on chronic DOAC therapy who presents c/o generalized weakness, fever, and shortness of breath. He reports that he has been in his usual state of health until overnight, his reports that he was complaining of being "cold" and requesting extra blankets. His increased the temperature on the thermostat overnight, but in AM, he was still complaining of cold chills and increased weakness. He also was then c/o nausea and had dry heaves, but no vomiting. EMS was summoned by his and upon arrival, he was noted to have a temp of 101F and hypoxia with O2 sat in the 80s, was placed on supplemental O2, and was noted to be tachycardic in the 170-180s. He received adenosine 6mg x1 for possible SVT followed by 12mg. His initial HS trop was 516.2 followed by repeat which was markedly elevated at 1780.1. He has not had an echo since March 2023. He is currently denying chest pain, dyspnea, palpitations, diaphoresis, cough, congestion, n/v/d. He was treated for fever with a dose of APAP. His viral panel was negative. Chest CT w/o contrast was stable from prior findings from 2021 and his UA is not suggestive of infection. He does have poor dentition and reports he lost a filling on one of his upper teeth about a year ago but has refused to see a dentist. He was given a dose of IV Cefepime 2g for minimally elevated wbc count, elevated lactate of 2.5 and procal of 1.0 and has been referred to the hospital medicine team for admission. Admission Exam Per Admitting Provider GENERAL: 79 yo elderly well-nourished WM. NAD. EYES: EOMI. PERRLA. Anicteric. HENT: Moist mucous membranes. Poor dentition. Upper right incisor tooth broken off and necrotic base. No cervical lymphadenopathy. LUNGS: Clear to auscultation bilaterally. No accessory muscle use. No W/R/R. CARDIOVASCULAR: Regular rate and rhythm. No JVD. ABDOMEN: Soft, non-tender and non-distended. No palpable masses. BS normoactive x 4 quad. : Gonzalez inserted draining clear yellow urine EXTREMITIES: Trace b/l LE edema. Non-tender. Peripheral pulses +2/4. NEUROLOGIC: A&O x3. No focal neurological deficits. CN II-XII grossly intact. PSYCHIATRIC: Cooperative. Appropriate mood and affect. SKIN: Warm, dry, intact. No rashes or lesions. Principal Diagnosis Gram-negative bacteremia Discharge Exam Gen: A&Ox3, WD/WN, NAD HEENT: NCAT, PERRL CV: RRR, no m/r/g Resp: CTAB, breathing non-labored Abd: Soft, NT/ND Skin: Warm, dry, pink, no rashes or lesions Discharge Data Allergies Allergy/AdvReac Type Severity Reaction Status Date / Time dexamethasone AdvReac Severe Hallucinati Verified 07/06/24 11:32 on prednisone AdvReac Severe hallucinati Verified 07/06/24 11:32 ons meclizine AdvReac Intermediate HALLUCINATI Verified 07/06/24 11:32 ON sulfamethoxazole AdvReac Intermediate Hallucinati Verified 07/06/24 11:32 [From Bactrim] ng trimethoprim [From Bactrim] AdvReac Intermediate Hallucinati Verified 07/06/24 11:32 ng hydrocodone AdvReac Mild AGITATION Verified 07/06/24 11:32 levofloxacin [From Levaquin] AdvReac Mild muscle Verified 07/06/24 11:32 weakness lisinopril AdvReac Mild Dizziness Verified 07/06/24 11:32 Consultations 07/06/24 11:14 ED Decision to Admit Stat 07/06/24 13:34 Consult Pulmonology Routine 07/06/24 18:29 Consult Cardiology Routine 07/08/24 14:28 Consult Infectious Diseases Routine Ordered Studies 07/14/24 06:20 07/14/24 06:20 07/06/24 09:20 CT chest diagnostic wo con Stat CT head/brain wo con Stat 07/07/24 18:08 CT abd pelvis oral and IV con Routine Hospital Course (1) Gram-negative bacteremia: (2) Elevated troponin: Laura Wheat is a 79yo man with h/o Multiple Myeloma s/p bone marrow transplant, reactive airway dz, complicated PNAs including PCP and cryptococcal (2021), Afib, and PE on chronic DOAC therapy, who presented with generalized weakness and dyspnea. #Bacteremia - On arrival, met SIRS criteria w/ HR > 90, RR > 20 O2 sat 87% on RA, requiring 2-4L O2 VBG notable for pCO2 36, O2 sat < 60 Leukocytosis w neutrophil predominance; peaked 19.38 Lactate 3.8-->2.5, procal 1.05 - Given 2g IV Cefepime and 1L NSS in ED - Blood cx w gram-neg bacilli x2 (E. coli ESBL) Sensitive to Ertapenem, Gentamicin, Meropenem, and Pip/Tazo No identifiable source of infection UA with 2+ blood, but UCx showed no growth BioFire negative CTAP on 07/07 showed no acute abdominal process Implantable port in place for approx 6y, no signs of SSTI - Now AFVSS, O2 sat >90 on RA, labs normalized - ID was consulted; blood cultures repeated, showed no growth after 48h; recc 2 weeks of IV abx -- ertapenem 1g IV daily with last dose on 07/24 (last dose here was 07/14 @ 01:30) - Repeat blood culture 07/26 to ensure no recurrence - Weekly CBC, BMP for the near future; then, as clinically indicated #Elevated troponin - Resolved - A/w recently worsening WRIGHT but never any chest pain, no h/o statin or blood thinner use - Trop 516 --> 1780 --> 2708 --> 3212 on 07/06 - TTE on 07/06 showed mild-mod MR & no other significant structural or functional abnormality - Per cardiology: likely demand ischemia; he has evidence of myocardial injury, likely a type II infarct related to his acute illness; further workup not recommended Total Time Total Time Spent Total Time Spent (In Minutes): <30 Discharge Plan Discharge Items Patient Disposition: Transfer Detention Fac Reason For Visit: FEVER, HYPOXEMIA, ELEVATED TROPONIN Discharge Diagnosis: Gram-negative bacteremia Activity: Per Instructions section Non-emergency contact: Primary Care Provider Call non-emergency contact if: you have any medication questions, your symptoms worsen and your temperature is above 101 Follow-up/Referrals: Corazon Vargas MD [Primary Care Provider] - Diet: Regular Addtl Attending Provider Instructions: ESBL bacteremia without clear source -no clear GI, or port infection as cause -improving nicely on ertapenem -ertapenem 1g IV daily through 07/24 (last dose here was 07/14 @ 01:30) -repeat blood culture 07/26 to ensure no recurrence -weekly CBC, BMP for the near term future then as clinically warranted to clarify below pt has PORT, not PICC, but no "radio button" to allow for port in current EMR You came to the hospital due to generalized weakness and trouble breathing, and you were admitted because you met criteria for sepsis, had a bloodstream infection (bacteremia), and your cardiac enzymes were elevated. You were seen by cardiology, who determined further cardiac evaluation was unnecessary. We considered possible sources of your bacteremia, but nothing definite was identified because your urine cultures had no growth, you tested negative for respiratory pathogens, your abdominal imaging showed no acute issues, and your port site appears uninfected. Though we were unable to pinpoint the source of infection, we were able to identify the bacteria involved and determine what medications work against them. You were given 8 days of the appropriate IV antibiotics, and your symptoms, labs, and vital signs improved. You were also seen by PT/OT, who recommended some time at an acute rehab facility after discharge. Placement was denied by insurance, who determined you should go to a Detention Facility. You are being sent over with this discharge summary and an updated list of your current medications. Your hospital course is as follows: #Bacteremia - On arrival, met SIRS criteria w/ HR > 90, RR > 20 O2 sat 87% on RA, requiring 2-4L O2 VBG notable for pCO2 36, O2 sat < 60 Leukocytosis w neutrophil predominance; peaked 19.38 Lactate 3.8-->2.5, procal 1.05 - Given 2g IV Cefepime and 1L NSS in ED - Blood cx w gram-neg bacilli x2 (E. coli ESBL) Sensitive to Ertapenem, Gentamicin, Meropenem, and Pip/Tazo No identifiable source of infection UA with 2+ blood, but UCx showed no growth BioFire negative CTAP on 07/07 showed no acute abdominal process Implantable port in place for approx 6y, no signs of SSTI - ID was consulted; blood cultures repeated, showed no growth after 48h; recc 2 weeks of IV abx -- ertapenem 1g IV daily with last dose on 07/24 - Now AFVSS, O2 sat >90 on RA, labs normalized #Elevated troponin - Resolved - A/w recently worsening WRIGHT but never any chest pain, no h/o statin or blood thinner use - Trop 516 --> 1780 --> 2708 --> 3212 on 07/06 - TTE on 07/06 showed mild-mod MR & no other significant structural or functional abnormality - Per cardiology: likely demand ischemia; he has evidence of myocardial injury, likely a type II infarct related to his acute illness; further workup not recommended You may call [phone] and ask to leave a message for Dr. Trejo if you have any questions about your hospitalization. Thank you for allowing us to participate in your care. Pending Studies at Discharge: No Stand-Alone Forms: My [facility] Skilled Items Patient informed of condition?: Yes DNR: Yes Discharge Level of Care: Skilled Communicable Disease: No Discharge Prognosis: Improving Lines: PICC Urinary Catheter: No Medications and DC Order Prescriptions: Continued daratumumab 20 mg/mL solution See Rx Instructions IV MONTHLY Rx Instructions: weight based intravenously monthly; Monthly at Chemo center via IV cetirizine [Zyrtec] 10 mg tablet 10 mg PO DAILY fluticasone furoate-vilanterol [Breo Ellipta] 200-25 mcg/dose blister with device 1 inh INHALATION QAM Qty: 60 4RF Eliquis 5 mg tablet 5 mg PO BID Qty: 180 1RF dexamethasone 4 mg tablet 0 mg PO UD Rx Instructions: Unable to verify if pt is still taking this on treatment day(s). Original Directions: 12mg by mouth on treatment day(s) pantoprazole 40 mg tablet,delayed release (DR/EC) 40 mg PO DAILY potassium citrate 10 mEq (1,080 mg) tablet extended release 1,080 mg PO DAILY 90 Days Qty: 90 3RF acyclovir 400 mg Tablet 400 mg PO BID citalopram 10 mg tablet 10 mg PO QAM thiamine HCl (vitamin B1) 100 mg Tablet 200 mg PO BID Qty: 60 0RF magnesium oxide 400 mg (241.3 mg magnesium) Tablet 400 mg PO QAM Qty: 30 0RF folic acid 1 mg Tablet 1 mg PO QAM Qty: 30 0RF metoprolol tartrate 25 mg Tablet 25 mg PO BID Qty: 60 0RF sennosides-docusate sodium [Senna Plus] 8.6-50 mg Tablet 1 tab-cap PO DAILY PRN (Reason: Constipation) cyanocobalamin (vitamin B-12) [Vitamin B-12] 1,000 mcg Tablet 1,000 mcg PO Q OTHER DAY ergocalciferol (vitamin D2) 1,250 mcg (50,000 unit) capsule 50,000 unit PO WK Rx Instructions: Wednesday Discharge Orders: Discharge Order (Routine); Ordered 07/14/24 Ordered By: Andrew Ambrosio Admission Data Admit Date/Time: 07/06/24 12:05 Attending Provider: Andrew Ambrosio Admit Provider: Bony Pruett Primary Care Provider: Corazon Vargas Other Providers: [facility]; Lencho [place]; Bony Pruett; Krishna Manzo; John Diane; Blanquita Lubin; Nilda Payne; Paloma Dowd; Mavis Chavarria; Sheela Schmid; Maryse Teran Other Interventions: Discharge Summary Assessment (RN) Last Done: 07/14/24 11:36 Supervising Physician Co-Signing Physician Notes I personally examined the patient and verified all sacnhez points of history and exam, discussed case, and agree with decision making with Dr Trejo for SNF today. vitals noted nad heent nc at mmm breathing unlabored. IMPRESSION & PLAN Gram Negative Sepsis, POA Bacterial translocation from GI tract, UTIall possible. Getting better on ertapenem. Appreciate ID input. Working on disposition. SNF. continue ertapenem per ID recs through 07/24 NSTEMI, Type II Chronic diastolic (congestive) HF Appreciate cardiology consultation Subtle LE edema, but overall euvolemic, so will monitor I/Os (negative 1.1L net this admission) Resting echo completed and reviewed. Additional per resident documentation Resident Activity Tracking Resident Involvement: Resident Care Provided Care Provided: Adult Hospital Medicine
[2024-07-11 07:25] LABS: BUN Creatinine Ratio 16.8 (10-20); Creatinine Clr Calc Pharmacy 57.7 ml/min
--- NOTE | 2024-07-11 11:49 | Hospitalist Progress Note ---
Date of Service July 11, 2024 Assessment & Plan (1) Gram-negative bacteremia: (2) Elevated troponin: Plan Jarret is a 79yo man with h/o Multiple Myeloma s/p bone marrow transplant, reactive airway dz, complicated PNAs including PCP and cryptococcal (2021), Afib, and PE on chronic DOAC therapy, who presented with generalized weakness and dyspnea. #Bacteremia - On arrival, met SIRS criteria w/ HR > 90, RR > 20; no identifiable source of infection; O2 sat 87% on RA, requiring 2-4L O2; VBG pCO2 36, O2 sat < 60 - Now AFVSS, O2 sat >90 on RA - Leukocytosis w neutrophil predominance; peaked 19.38, now wnl - UA with 2+ blood, BioFire negative, Lactate 3.8-->2.5, procal 1.05 - Given 2g IV Cefepime and 1L NSS in ED - Blood cx w gram-neg bacilli x2 (E. coli ESBL) Sensitive to Ertapenem, Gentamicin, Meropenem, and Pip/Tazo - UCx showed no growth - Per pulm: social gram-negative bacteremia is most likely GI; recommend CT abdomen and pelvis CTAP on 07/07 showed no acute abdominal process identified - Continue Ertapenem 1000mg IV q24h - ID consulted: Continue Ertapenem 1 g IV daily Repeat blood cultures. If sterile, treat w 2 weeks of IV abx; if positive, consider KAROLINA and LIJ port removal If diarrhea recurs, check stool culture If greater than 3 loose bowel movements, check GI PCR - Being seen by PT/OT #Elevated troponins - Resolved - A/w recently worsening WRIGHT but never any chest pain, no h/o statin or blood thinner use - Trop 516 --> 1780 --> 2708 --> 3212 - TTE on 07/06 showed mild-mod MR & no other significant structural or functional abnormality - Per cardiology: may be demand ischemia; he has evidence of myocardial injury, likely a type II infarct related to his acute illness; further workup not recommended Admission and Anticipated Discharge Date Admission Date: July 06, 2024 Supervising Physician Co-Signing Physician Notes I personally examined the patient and verified all sanchez points of history and exam, discussed case, and agree with decision making with Dr Trejo resting comfortably. for rehab. ID input appreciated. vitals noted nad heent nc at mmm breathing unlabored. IMPRESSION & PLAN Gram Negative Sepsis, POA Bacterial translocation from GI tract, UTIall possible. Getting better on ertapenem. Appreciate ID input. Working on disposition. f/u culture no growth thus far NSTEMI, Type II Chronic diastolic (congestive) HF Appreciate cardiology consultation Subtle LE edema, but overall euvolemic, so will monitor I/Os (negative 1.1L net this admission) Resting echo completed and reviewed. Additional per resident documentation Subjective Doing well this morning. Has been oob, no issues going to the toilet. Denies SOLIS, dizziness, SOB, CP, abd pain, dysuria. Looking forward to working w PT. Review of Systems 2 Review of Systems: As per HPI. Physical Exam 2 Physical Exam: Gen: NAD, WD/WN HEENT: NCAT, PERRL CV: RRR, no m/r/g Resp: CTAB, breathing non-labored Abd: Soft, NT/ND Skin: Warm, dry, no signs of port site infection, no rashes or lesions Results & Data Results & Data Vital Signs (Past 12 Hours) Vital Signs Temp Pulse Pulse Pulse Resp BP BP 07/11/24 11:18 36.6 C 72 72 24 136/84 07/11/24 09:51 07/11/24 07:50 36.3 C L 77 19 147/84 H 07/11/24 07:12 73 07/11/24 04:21 36.8 C 68 18 141/90 H 07/10/24 23:54 73 Pulse Ox O2 Del Method 07/11/24 11:18 92 Room Air 07/11/24 09:51 Room Air 07/11/24 07:50 94 Room Air 07/11/24 07:12 07/11/24 04:21 93 Room Air 07/10/24 23:54 Laboratory Results 07/11/24 06:08 07/11/24 06:08 Resident Activity Tracking Resident Involvement: Resident Care Provided Care Provided: Adult Hospital Medicine
--- NOTE | 2024-07-11 17:05 | Billing Data ---
Date of Service July 11, 2024 Coding Level of Care Code 14132 SUB INP/OBS CARE
[2024-07-11 23:22] VITALS: RESP 18
[2024-07-11] MEDS: HEPARIN 100 UNIT/ML 5ML FLUSH FLUSH PRN (23:39)
[2024-07-12 06:49] LABS: Basophils # (auto) 0.03 K/uL (0.00-0.20); Basophils % (auto) 0.4 %; Eosinophils # (auto) 0.26 K/uL (0.00-0.50); Eosinophils % (auto) 3.4 %; Hematocrit (blood only) 39.2 % (42.0-52.0); Hemoglobin 13.1 g/dl (14.0-18.0); Immature Granulocytes # (auto) 0.11 K/uL (0.01-0.20); Immature Granulocytes % (auto) 1.4 %; Lymphocytes # (auto) 0.84 K/uL (1.20-3.40); Mean Corpuscular Hemoglobin 30.8 pg (25.0-34.0); Mean Corpuscular Hgb Conc 33.4 g/dL (32.0-36.0); Mean Corpuscular Volume 92.2 fL (80.0-100.0); Mean Platelet Volume 9.9 fL (9.4-12.4); Monocytes # (auto) 0.55 K/uL (0.11-0.59); Monocytes % (auto) 7.2 %; Neutrophils # (auto) 5.87 K/uL (1.40-6.50); Neutrophils % (auto) 76.6 %; Platelet Count 177 K/uL (130-400); RDW Coefficient of Variation 14.2 % (11.5-14.5); RDW Standard Deviation 48.2 fL (36.4-46.3); Red Blood Count 4.25 M/uL (4.70-6.10); White Blood Count 7.66 K/ul (4.8-10.8)
[2024-07-12 07:17] LABS: BUN Creatinine Ratio 18.8 (10-20); Calcium 8.8 mg/dl (8.6-10.3); Creatinine Clr Calc Pharmacy 58.7 ml/min
--- NOTE | 2024-07-12 15:13 | Infectious Disease Progress Nt ---
Date of Service July 12, 2024 Assessment & Plan (1) Gram-negative bacteremia: (2) ESBL (extended spectrum beta-lactamase) producing bacteria infection: (3) Multiple myeloma: Plan This is a 79-year-old male with a past medical history of multiple myeloma status post autologous stem cell transplant 12/2016, failed maintenance Velcade and currently on daratumumab, paroxysmal A-fib, HFpEF, PE on Lovenox, PJP and cryptococcal pneumonia who presents with lethargy, nausea with subsequent vomiting. He endorsed left flank pain, fever, chills and intermittent diarrhea. He had some shortness of breath but this has resolved. He denies headaches, chest pain, rash, sweats, change in urine habits or hemoptysis. In the ED he is febrile with a T38.9, heart rate 145, blood pressure 163/110, O2 sats 87% room air 95% on 2 L. Labs: WBC 11.57-->19.38 BUN 20, creatinine 1.19. Respiratory viral panel negative. Urinalysis with 0-5 WBC, greater than 20 RBC, no bacteria seen. Chest x-ray with cardiomegaly without acute cardiopulmonary process. CT chest with no acute intrathoracic abnormality. Irregular subpleural consolidative opacities of the right upper and left lower lobe are stable. Multifocal lytic lesions re-demonstrated and c/w diagnosis of multiple myeloma. Chronic pathological compression deformities noted. Head CT with no hemorrhage, mass effect or ischemia. Blood culture positive for ESBL E. coli in /4 bottles. He initially received a dose of cefepime and is now on ertapenem. Infectious disease consulted for gram-negative du bacteremia. On my initial exam,he is comfortable. He denies any abdominal pain. Admits to intermittent diarrhea but currently stools are formed. Nausea and vomiting resolved. WBC down to 7.93. He is afebrile for > 48 hours. Microbiology: Blood cultures 07/06/24/ bottles ESBL E. coli Urine culture 07/06/24 <1K CFU Blood cultures 07/10/24 NGTD Antibiotics: Cefepime / Ertapenem /ongoing Acyclovir p.o. (prophylaxis) #ESBL ecoli bacteremia/sepsis # Leukocytosis,Fevers; resolved # Left IJ port # Intermittent diarrhea, none currently #Multiple Myeloma #S/P autologous stem cell transplant #H/o cryptococcus pneumonia and PJP, treated #Stable pleural based and pulmonary nodules # Bactrim , hallucinations # Levaquin, muscle weakness Discussion: Source of his ESBL E. coli bacteremia is unknown at this time. He denies symptoms. Has had intermittent diarrhea but none currently. Abdomen is benign on exam. No CVA or suprapubic tenderness. CTAB unremarkable. He is immunocompromise status post stem cell transplant on daratumumab monthly and has a left IJ in place. No jose signs of infection , but a line infection should be ruled out. He denies other prosthetics/hardware/grafts. Transthoracic cardiac echocardiogram done on 07/06 shows moderate aortic valve sclerosis, without a ortic valve stenosis; mild mitral annular calcification, mild to moderate mitral regurgitation. He has a history of skin cancer with chronic skin lesions but no open wounds or lesions that appear acutely infected. He denies new or worsening pulmonary symptoms. Recommendations: Continue Ertapenem 1 g IV daily Repeat blood cultures. If repeat blood cultures sterile, would treat for 2 weeks with IV antibiotics. If repeat blood cultures positive, would consider KAROLINA and LIJ port removal If diarrhea recurs, check stool culture If greater than 3 loose bowel movements, check GI PCR IF no continued bacteremia, anticipate Ertapenem 1 g iv daily ( 07/10-07/24); Repeat BC 1 week post completion of antibiotics. On therapy, weekly cbc with diff, bmp, lfts. ID will sign off. Please call if 07/10 BC positive, fevers or increasing WBC. Mavis Chavarria MD, MPH Infectious Disease [facility], ID Division Call [phone] with questions Admission and Anticipated Discharge Date Admission Date: July 06, 2024 Subjective This patient recommendation is based on a telemedicine consult request which was completed asynchronously through chart review and information provided by the primary physician. The patient was not seen or examined today. The evaluation is consultative in nature and all patient care and treatment decisions can either be accepted or rejected by the patient's primary hospital-based treating physician using their own independent medical judgment for their patient. Time Spent Reviewing Chart: 21 - 30 minutes Afebrile Repeat BC NGTD WBC7.66, cr 1.17 Results & Data Vital Signs (Past 12 Hours) Vital Signs Temp Pulse Resp BP Pulse Ox O2 Del Method 07/12/24 14:34 36.7 C 74 18 131/83 97 Room Air 07/12/24 09:00 67 18 133/85 97 Room Air 07/12/24 07:40 36.3 C L 67 18 144/82 H 95 Room Air Laboratory Results 07/10/24 19:06 Aerobic Blood Culture - Preliminary Blood No growth in Aerobic bottle after 24 hours. Anaerobic Blood Culture - Preliminary No growth in Anaerobic bottle after 24 hours. 07/12/24 06:06 WBC 7.66 RBC 4.25 L Hgb 13.1 L Hct 39.2 L MCV 92.2 MCH 30.8 MCHC 33.4 RDW Std Deviation 48.2 H RDW Coeff of Eyal 14.2 Plt Count 177 MPV 9.9 Immature Gran % (Auto) 1.4 Neut % (Auto) 76.6 Lymph % (Auto) 11.0 [place] % (Auto) 7.2 Eos % (Auto) 3.4 Baso % (Auto) 0.4 Neut # (Auto) 5.87 Lymph # (Auto) 0.84 L [place] # (Auto) 0.55 Eos # (Auto) 0.26 Baso # (Auto) 0.03 Immature Gran # (Auto) 0.11 Sodium 140 Potassium 4.0 Chloride 107 Carbon Dioxide 27 Anion Gap 6 BUN 22 Creatinine 1.17 Est Cr Clr Drug Dosing 58.7 eGFR 63.41 BUN/Creatinine Ratio 18.8 Glucose 99 Calcium 8.8 Medications Administered Home Medications Medication Instructions Recorded Confirmed Last Taken acyclovir 400 mg tablet 400 mg PO BID 08/02/18 07/06/24 03/01/22 08:00 citalopram 10 mg tablet 10 mg PO QAM 04/25/19 07/06/24 01/17/22 13:00 folic acid 1 mg tablet 1 mg PO QAM #30 tabs 04/03/22 07/06/24 Unknown magnesium oxide 400 mg (241.3 mg 400 mg PO QAM #30 tabs 04/03/22 07/06/24 Unknown magnesium) tablet metoprolol tartrate 25 mg tablet 25 mg PO BID #60 tabs 04/03/22 07/06/24 Unknown thiamine HCl (vitamin B1) 100 mg 200 mg (2 x 100 mg) PO BID #60 tabs 04/03/22 07/06/24 Unknown tablet cetirizine 10 mg tablet (Zyrtec) 10 mg PO DAILY Allergy Symptoms 07/28/23 07/06/24 Unknown daratumumab 20 mg/mL intravenous See Rx Instructions IV MONTHLY 07/28/23 07/06/24 06/28/24 solution Breo Ellipta 200 mcg-25 mcg/dose 1 inh inhalation QAM #60 ea 12/13/23 07/06/24 Unknown powder for inhalation (fluticasone furoate-vilanterol) potassium citrate 10 mEq (1,080 1,080 mg PO DAILY 90 days #90 tabs 03/02/24 07/06/24 Unknown mg) tablet,extended release dexamethasone 4 mg tablet 0 mg PO UD Treatment Days 03/21/24 07/06/24 Unknown pantoprazole 40 mg tablet,delayed 40 mg PO DAILY 03/21/24 07/06/24 Unknown release apixaban 5 mg tablet (Eliquis) 5 mg PO BID #180 tabs 07/03/24 07/06/24 Unknown cyanocobalamin (vitamin B-12) 1,000 mcg PO Q OTHER DAY 07/06/24 07/06/24 Unknown 1,000 mcg tablet (Vitamin B-12) ergocalciferol (vitamin D2) 1,250 50,000 unit PO WK 07/06/24 07/06/24 Unknown mcg (50,000 unit) capsule sennosides 8.6 mg-docusate sodium 1 tab-cap PO DAILY PRN Constipation 07/06/24 07/06/24 Unknown 50 mg tablet (Senna Plus) Active Medications Generic Name Dose Route Start Last Admin Trade Name Freq PRN Reason Stop Dose Admin Acyclovir 400 mg 07/06/24 21:00 07/12/24 09:12 Acyclovir 400 Mg Tab PO 08/05/24 20:59 400 mg BID CYN Administration Apixaban 5 mg 07/06/24 12:15 07/12/24 09:13 Apixaban 5 Mg Tablet PO 08/05/24 12:14 5 mg BID CYN Administration Cetirizine HCl 10 mg 07/07/24 09:00 07/12/24 09:12 Cetirizine Hcl 10 Mg Tablet PO 08/06/24 08:59 10 mg DAILY CYN Administration Citalopram Hydrobromide 10 mg 07/07/24 09:00 07/12/24 09:12 Citalopram 20 Mg Tab PO 08/06/24 08:59 10 mg QAM CYN Administration Fluticasone/Vilanterol 1 puffs 07/07/24 09:00 07/12/24 09:13 Fluticasone/Vilanterol 200/25mcg 14 Puffs/Inhaler INH 08/06/24 08:59 1 puffs QAM CYN Administration Folic Acid 1 mg 07/07/24 09:00 07/12/24 09:12 Folic Acid 1 Mg Tab PO 08/06/24 08:59 1 mg QAM CYN Administration Heparin Sodium (Porcine) 5 ml 07/11/24 23:32 07/12/24 06:16 Heparin 100 Unit/Ml 5ml Flush FLUSH 08/10/24 23:31 5 ml PRN PRN Administration Flush Ertapenem 1,000 mg in 10 mls @ 2 mls/min 07/06/24 23:15 07/11/24 22:56 Invanz 1000mg IV 07/20/24 23:14 2 mls/min Q24H CYN Administration Magnesium Oxide 400 mg 07/07/24 09:00 07/12/24 10:52 Magnesium Oxide 400 Mg Tab PO 08/06/24 08:59 400 mg BID CYN Administration Metoprolol Tartrate 25 mg 07/06/24 21:00 07/12/24 09:12 Metoprolol Tartrate 25 Mg Tab PO 08/05/24 20:59 25 mg BID CYN Administration Pantoprazole Sodium 40 mg 07/07/24 09:00 07/12/24 09:12 Pantoprazole 40 Mg Tab PO 08/06/24 08:59 40 mg DAILY CYN Administration Senna/Docusate Sodium 1 tab 07/07/24 09:00 07/12/24 10:16 Docusate Sodium/Senna 50/8.6mg Tab PO 08/06/24 08:59 1 tab DAILY CYN Administration Thiamine HCl 200 mg 07/06/24 21:00 07/12/24 09:12 Thiamine Hcl 100 Mg Tab PO 08/05/24 20:59 200 mg BID CYN Administration
--- NOTE | 2024-07-12 17:01 | Hospitalist Progress Note ---
Date of Service July 12, 2024 Assessment & Plan (1) Gram-negative bacteremia: (2) Elevated troponin: Plan Jarret is a 79yo man with h/o Multiple Myeloma s/p bone marrow transplant, reactive airway dz, complicated PNAs including PCP and cryptococcal (2021), Afib, and PE on chronic DOAC therapy, who presented with generalized weakness and dyspnea. #Bacteremia - On arrival, met SIRS criteria w/ HR > 90, RR > 20; no identifiable source of infection; O2 sat 87% on RA, requiring 2-4L O2; VBG pCO2 36, O2 sat < 60 - Now AFVSS, O2 sat >90 on RA - Leukocytosis w neutrophil predominance; peaked 19.38, now wnl - UA with 2+ blood, BioFire negative, Lactate 3.8-->2.5, procal 1.05 - Given 2g IV Cefepime and 1L NSS in ED - Blood cx w gram-neg bacilli x2 (E. coli ESBL) Sensitive to Ertapenem, Gentamicin, Meropenem, and Pip/Tazo - UCx showed no growth - Per pulm: social gram-negative bacteremia is most likely GI; recommend CT abdomen and pelvis CTAP on 07/07 showed no acute abdominal process identified - Per ID: Continue Ertapenem 1000 mg IV q24h Repeat blood cultures. If sterile, treat w 2 weeks of IV abx; if positive, consider KAROLINA and LIJ port removal If diarrhea recurs, check stool culture If greater than 3 loose bowel movements, check GI PCR - Repeat blood cx show no growth after 24h - Being seen by PT/OT; recommended brief inpatient rehab; currently pending placement #Elevated troponin - Resolved - A/w recently worsening WRIGHT but never any chest pain, no h/o statin or blood thinner use - Trop 516 --> 1780 --> 2708 --> 3212 on 07/06 - TTE on 07/06 showed mild-mod MR & no other significant structural or functional abnormality - Per cardiology: may be demand ischemia; he has evidence of myocardial injury, likely a type II infarct related to his acute illness; further workup not recommended Admission and Anticipated Discharge Date Admission Date: July 06, 2024 Supervising Physician Co-Signing Physician Notes I personally examined the patient and verified all sanchez points of history and exam, discussed case, and agree with decision making with Dr Maya villatoro, no complaints, but more confused today. for rehab. ID input appreciated. vitals noted nad heent nc at mmm breathing unlabored. IMPRESSION & PLAN Gram Negative Sepsis, POA Bacterial translocation from GI tract, UTIall possible. Getting better on ertapenem. Appreciate ID input. Working on disposition. f/u culture no growth thus far, anticipate 2wks ertapenem NSTEMI, Type II Chronic diastolic (congestive) HF Appreciate cardiology consultation Subtle LE edema, but overall euvolemic, so will monitor I/Os (negative 1.1L net this admission) Resting echo completed and reviewed. Additional per resident documentation Subjective Was moved to new room last night, reports not sleeping well because it was so late (says "1 or 2 am"). Reports feeling well this morning. Has not been oob since transfer but eating/drinking normally. Denies SOLIS, dizziness, SOB, CP, abd pain, dysuria. Somewhat confused (e.g. regarding timing), seemed to understand and accepted plan of waiting for rehab placement. Review of Systems 2 Review of Systems: As per HPI. Physical Exam 2 Physical Exam: Gen: alert, oriented to person, place, and day fo the week, somewhat confused, NAD HEENT: NCAT, PERRL CV: RRR, no m/r/g Resp: CTAB, breathing non-labored Abd: Soft, NT/ND Skin: Warm, dry, no signs of port site infection, no rashes or lesions Results & Data Results & Data Vital Signs (Past 12 Hours) Vital Signs Temp Pulse Resp BP Pulse Ox O2 Del Method 07/12/24 14:34 36.7 C 74 18 131/83 97 Room Air 07/12/24 09:00 67 18 133/85 97 Room Air 07/12/24 07:40 36.3 C L 67 18 144/82 H 95 Room Air Laboratory Results 07/12/24 06:06 07/12/24 06:06 Resident Activity Tracking Resident Involvement: Resident Care Provided Care Provided: Adult Hospital Medicine
--- NOTE | 2024-07-12 19:35 | Billing Data ---
Date of Service July 12, 2024 Coding Level of Care Code 95396 SUB INP/OBS CARE
[2024-07-13 09:32] LABS: Basophils # (auto) 0.04 K/uL (0.00-0.20); Basophils % (auto) 0.5 %; Eosinophils % (auto) 3.7 %; Hematocrit (blood only) 41.2 % (42.0-52.0); Hemoglobin 13.8 g/dl (14.0-18.0); Immature Granulocytes # (auto) 0.08 K/uL (0.01-0.20); Lymphocytes # (auto) 0.89 K/uL (1.20-3.40); Lymphocytes % (auto) 10.9 %; Mean Corpuscular Hemoglobin 31.4 pg (25.0-34.0); Mean Corpuscular Hgb Conc 33.5 g/dL (32.0-36.0); Mean Corpuscular Volume 93.6 fL (80.0-100.0); Mean Platelet Volume 9.6 fL (9.4-12.4); Monocytes # (auto) 0.44 K/uL (0.11-0.59); Monocytes % (auto) 5.4 %; Neutrophils # (auto) 6.39 K/uL (1.40-6.50); Neutrophils % (auto) 78.5 %; Platelet Count 206 K/uL (130-400); RDW Coefficient of Variation 14.6 % (11.5-14.5); RDW Standard Deviation 50.1 fL (36.4-46.3); White Blood Count 8.14 K/ul (4.8-10.8)
[2024-07-13 10:08] LABS: BUN Creatinine Ratio 19.8 (10-20); Calcium 8.7 mg/dl (8.6-10.3); Creatinine Clr Calc Pharmacy 59.2 ml/min; Potassium 3.8 mmol/L (3.5-5.1)
--- NOTE | 2024-07-13 18:10 | Hospitalist Progress Note ---
Date of Service July 13, 2024 Assessment & Plan (1) Gram-negative bacteremia: (2) Elevated troponin: Plan Jarret is a 79yo man with h/o Multiple Myeloma s/p bone marrow transplant, reactive airway dz, complicated PNAs including PCP and cryptococcal (2021), Afib, and PE on chronic DOAC therapy, who presented with generalized weakness and dyspnea. #Bacteremia - On arrival, met SIRS criteria w/ HR > 90, RR > 20; no identifiable source of infection; O2 sat 87% on RA, requiring 2-4L O2; VBG pCO2 36, O2 sat < 60 - Now AFVSS, O2 sat >90 on RA - Leukocytosis w neutrophil predominance; peaked 19.38, now wnl - UA with 2+ blood, BioFire negative, Lactate 3.8-->2.5, procal 1.05 - Given 2g IV Cefepime and 1L NSS in ED - Blood cx w gram-neg bacilli x2 (E. coli ESBL) Sensitive to Ertapenem, Gentamicin, Meropenem, and Pip/Tazo - UCx showed no growth - Per pulm: social gram-negative bacteremia is most likely GI; recommend CT abdomen and pelvis CTAP on 07/07 showed no acute abdominal process identified - Per ID: Continue Ertapenem 1000 mg IV q24h Repeat blood cultures. If sterile, treat w 2 weeks of IV abx; if positive, consider KAROLINA and LIJ port removal If diarrhea recurs, check stool culture If greater than 3 loose bowel movements, check GI PCR - Repeat blood cx show no growth after 24h - Being seen by PT/OT; inpatient rehab denied by insurance - Currently pending placement at SNF #Elevated troponin - Resolved - A/w recently worsening WRIGHT but never any chest pain, no h/o statin or blood thinner use - Trop 516 --> 1780 --> 2708 --> 3212 on 07/06 - TTE on 07/06 showed mild-mod MR & no other significant structural or functional abnormality - Per cardiology: may be demand ischemia; he has evidence of myocardial injury, likely a type II infarct related to his acute illness; further workup not recommended Admission and Anticipated Discharge Date Admission Date: July 06, 2024 Supervising Physician Co-Signing Physician Notes I personally examined the patient and verified all sanchez points of history and exam, discussed case, and agree with decision making with Dr Maya villatoro, no complaints, again confused today. rehab denied on peer to peer - for snf. ID input appreciated. vitals noted nad heent nc at mmm breathing unlabored. IMPRESSION & PLAN Gram Negative Sepsis, POA Bacterial translocation from GI tract, UTIall possible. Getting better on ertapenem. Appreciate ID input. Working on disposition. SNF. continue ertapenem per ID recs NSTEMI, Type II Chronic diastolic (congestive) HF Appreciate cardiology consultation Subtle LE edema, but overall euvolemic, so will monitor I/Os (negative 1.1L net this admission) Resting echo completed and reviewed. Additional per resident documentation Subjective Says he is doing well. More engaged than yesterday, sitting in chair by window, reports eating, drinking, ambulating, and urinating w/o issues. Is not feeling optimistic about insurance cooperating w rehab placement. Denies SOLIS, SOB, CP, n/v/c/d, abd pain, dysuria. Review of Systems 2 Review of Systems: As per HPI. Physical Exam 2 Physical Exam: Gen: A&Ox3, NAD HEENT: NCAT, PERRL CV: RRR, no m/r/g Resp: CTAB, breathing non-labored Abd: Soft, NT/ND Skin: Warm, dry, no signs of port site infection, no rashes or lesions Results & Data Results & Data Vital Signs (Past 12 Hours) Vital Signs Temp Pulse Resp BP Pulse Ox O2 Del Method 07/13/24 15:59 36.4 C L 70 18 134/81 95 Room Air 07/13/24 07:42 36.3 C L 73 18 153/79 H 94 Room Air Laboratory Results 07/13/24 09:05 07/13/24 09:05 Resident Activity Tracking Resident Involvement: Resident Care Provided Care Provided: Adult Hospital Medicine
--- NOTE | 2024-07-13 18:43 | Billing Data ---
Date of Service July 13, 2024 Coding Level of Care Code 77840 SUB INP/OBS CARE
[2024-07-14 07:26] LABS: Basophils # (auto) 0.04 K/uL (0.00-0.20); Basophils % (auto) 0.6 %; Eosinophils # (auto) 0.26 K/uL (0.00-0.50); Eosinophils % (auto) 3.9 %; Hematocrit (blood only) 37.7 % (42.0-52.0); Hemoglobin 12.4 g/dl (14.0-18.0); Immature Granulocytes # (auto) 0.07 K/uL (0.01-0.20); Lymphocytes # (auto) 0.87 K/uL (1.20-3.40); Mean Corpuscular Hemoglobin 30.5 pg (25.0-34.0); Mean Corpuscular Hgb Conc 32.9 g/dL (32.0-36.0); Mean Corpuscular Volume 92.6 fL (80.0-100.0); Mean Platelet Volume 9.6 fL (9.4-12.4); Monocytes # (auto) 0.58 K/uL (0.11-0.59); Monocytes % (auto) 8.7 %; Neutrophils # (auto) 4.85 K/uL (1.40-6.50); Neutrophils % (auto) 72.8 %; Platelet Count 207 K/uL (130-400); RDW Coefficient of Variation 14.4 % (11.5-14.5); RDW Standard Deviation 48.7 fL (36.4-46.3); Red Blood Count 4.07 M/uL (4.70-6.10); White Blood Count 6.67 K/ul (4.8-10.8)
[2024-07-14 07:37] LABS: BUN Creatinine Ratio 20.4 (10-20); Calcium 8.3 mg/dl (8.6-10.3); Creatinine Clr Calc Pharmacy 63.5 ml/min; Potassium 3.9 mmol/L (3.5-5.1)
[2024-07-14 07:53] VITALS: BP 150/80; PULSE 70; TEMP 97.3; O2SAT 95
--- NOTE | 2024-07-14 19:09 | Billing Data ---
Date of Service July 14, 2024 Coding Level of Care Code 33757 IN/OBS DISCH 30 MIN/LESS
== END 2024-07-14 12:38 | DRG 871 ==
LOC: ED 08:47 → 2E 12:05 → SUATTDRO 12:05 → 2E 12:29 → 3W 07-11 21:44

== ENCOUNTER 2024-10-08 12:04 | Inpatient (IN) ==
--- NOTE | 2024-10-08 12:57 | Emergency Department Note ---
Impression & Plan AMS (altered mental status), Confusion, Hallucinations ED Provider Note NAME: RAGHAV MIXON AGE: 79 SEX: M : 1945 ARRIVES VIA: Ambulance INFORMANT: Patient ED PROVIDER(S): Andrew Pickett DO CHIEF COMPLAINT: Confusion HPI: Patient is a 79-year-old male who presents to the ER for confusion brought in by both daughter and . notes that patient has dementia and has had this for the past 3 years. Generally once a day he has a hallucination or delusion but over the past 48 hours it has been constant. He has been running out to the farm and looking for cows which they do not have, sheep which they do not have an people stealing a skid liquid loader. He denies any headache or change in vision. No chest pain or shortness of breath. No nausea, vomiting, or diarrhea. No dysuria, urgency, or frequency. No other exacerbating or remitting factors. ADDITIONAL HISTORY OBTAINED: Per HPI Chronic Medical/Social Conditions Affecting Care: Per HPI PAST MEDICAL HISTORY:See Below PAST SURGICAL HISTORY:See Below FAMILY HISTORY:See Below SOCIAL HISTORY:See Below HOME MEDICATIONS:See Below ALLERGIES:See Below VITALS:See Below PHYSICAL EXAMINATION: GENERAL: Sitting up in bed, alert, well appearing, well nourished, no distress, non-toxic EYE EXAM: normal conjunctiva. PERRL and EOM's grossly intact. OROPHARYNX: no exudate, no erythema, lips, buccal mucosa, and tongue normal and mucous membranes are moist NECK: supple, no nuchal rigidity, no adenopathy, non-tender LUNGS: Clear to auscultation. Normal chest wall mechanics HEART: no murmurs, S1 normal and S2 normal ABDOMEN: abdomen soft, non-tender, normo-active bowel sounds, no masses, no rebound or guarding. BACK: Back is symmetrical on inspection and there is no deformity, no midline tenderness, no CVA tenderness. SKIN: no rashes and no bruising UPPER EXTREMITIES: upper extremities are grossly normal. LOWER EXTREMITIES: No pitting edema. NEURO EXAM: Awake alert following commands, cranial nerves II-XII intact, normal speech, no weakness of arms, no weakness of legs. No drift. Finger to nose intact. Gross sensation intact. MEDICAL DECISION MAKING: Patient is a 79-year-old male who presents ER for the above-stated complaint. IV was established and blood work was obtained. Labs show no significant leukocytosis or anemia. INR is unremarkable. BMP with slightly elevated chloride at 110. LFTs and bilirubin were unremarkable. Troponin was negative. TSH unremarkable. UA with a small amount of red cells. CT of the head as well as abdomen pelvis and chest x-ray were obtained and showed no acute pathology. Patient was updated bedside as well as family who gave the majority history and case was discussed with the hospitalist for further evaluation management treatment. Consults/Care Managements Discussions: Per MDM Triage Nursing notes reviewed. Limited review of prior medical records performed Vital Signs: reviewed and remarkable for HTN Differential diagnosis: Differential diagnoses includes but is not limited to toxic, metabolic, infectious, traumatic, cardiac, neurologic, hematologic, psychiatric and inflammatory etiologies. ER treatment provided: See below Diagnostics interpreted by me include EKG and cardiac monitoring as listed below: -Cardiac Monitoring: An order was placed for continuous cardiac monitoring. The monitor shows a rate of 70 with sinus rhythm. -ECG: Sinus rhythm rate of 65 Left axis QTc 445 -Laboratory studies:Interpreted by me as stated above in MDM and shown below. Imaging studies: Xrays: As interpreted by me: Portable AP upright 1 view of the chest shows no focal infiltrate CTs show: CT of the head and abdomen pelvis was negative per radiology Procedures:none Critical Care: None Past Med/Surg History Problem List (Updated 09/25/24 @ 00:06 by Background Daemon) Chest pain (Acute) Parapelvic renal cyst Microscopic hematuria Pneumocystis carinii pneumonia Thiamine deficiency Folate deficiency Acute maxillary sinusitis Hypokalemia Pneumonia COVID-19 Metabolic acidosis Vitamin D deficiency Confusion Fall Acute renal failure PCP (pneumocystis jiroveci pneumonia) Muscle weakness (generalized) Fatigue Cryptococcal pneumonitis (Acute) Hypoxia (Acute) Pulmonary infiltrate present on computed tomography (Acute) Acute encephalopathy Abnormal chest CT B12 deficiency Acute respiratory failure with hypoxia Diarrhea Hypokalemia Cryptococcal pneumonitis Gout Current use of chcf anticoagulation (Chronic) Calculus of kidney (HFpEF) heart failure with preserved ejection fraction Light chain myeloma (Acute) Acute appendicitis (Acute) Acute appendicitis Metastatic malignant neoplasm of unknown primary site (Acute) Elevated troponin Left shoulder pain (Acute) Rash (Acute) Depression Cancer MULTIPLE MYELOMA (DX'D 2016); stem cell transplant, chemo Osteoporosis 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 Bone marrow replaced by transplant (Acute) SOB (shortness of breath) on exertion Thrombocytopenia Anemia BASELINE 8-9 RANGE Elevated prostate specific antigen (PSA) Sepsis associated hypotension Diastolic dysfunction Abnormal urine finding Encounter for pre-operative examination Pneumonia (Acute) Fever (Acute) Shortness of breath (Acute) Acute UTI (Acute) Medical History (HFpEF) heart failure with preserved ejection fraction Anemia BASELINE 8-9 RANGE BPH loc w urin obs/LUTS Calculus of kidney Cancer MULTIPLE MYELOMA (DX'D 2015); stem cell transplant, chemo Cryptococcal pneumonitis Current use of chcf anticoagulation Depression GERD (gastroesophageal reflux disease) Gout History of nephrolithiasis History of pneumothorax 2020 with lung biopsy History of pulmonary embolism ELY SHOSHONE (hard of hearing) Irregular heartbeat 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 Port-A-Cath in place Left chest Pulmonary embolism 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); 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 SOB (shortness of breath) on exertion Thrombocytopenia Tremor Surgical History Bone marrow replaced by transplant History of cataract surgery RT History of chest tube placement History of lung biopsy benign Family History Father Cardiac disorder Heart disease Mother Cancer Stroke Other No family history of adverse response to anesthesia Social History Smoking Status: Never smoker Second Hand Exposure: No; Do You Dip or Chew Tobacco: No; Hx Alcohol Use: No Hx Substance Use: No Preferred Language: Chinese Communication Ability: Effective Communication Ability Comment: hard of hearing Visual Impairment: No Limitations Wetlands Technician Required: No Beliefs That Will Affect Care: None marital status: Current Living Situation: Spouse current occupational status: retired How many Children do You have: 0 Feels Safe at Home: Yes Diet: regular during the past year weight has: remained stable Assistive Devices: Cane and Walker Allergies Allergies Allergy/AdvReac Type Severity Reaction Status Date / Time dexamethasone AdvReac Severe Hallucinati Verified 07/06/24 11:32 on prednisone AdvReac Severe hallucinati Verified 07/06/24 11:32 ons meclizine AdvReac Intermediate HALLUCINATI Verified 07/06/24 11:32 ON sulfamethoxazole AdvReac Intermediate Hallucinati Verified 07/06/24 11:32 [From Bactrim] ng trimethoprim [From Bactrim] AdvReac Intermediate Hallucinati Verified 07/06/24 11:32 ng hydrocodone AdvReac Mild AGITATION Verified 07/06/24 11:32 levofloxacin [From Levaquin] AdvReac Mild muscle Verified 07/06/24 11:32 weakness lisinopril AdvReac Mild Dizziness Verified 07/06/24 11:32 Home Meds Home Medications Medication Instructions Recorded Confirmed acyclovir 400 mg tablet 400 mg PO BID 08/02/18 10/08/24 citalopram 10 mg tablet 10 mg PO QAM 04/25/19 10/08/24 cetirizine 10 mg tablet (Zyrtec) 10 mg PO DAILY Allergy Symptoms 07/28/23 10/08/24 daratumumab 20 mg/mL intravenous See Rx Instructions IV MONTHLY 07/28/23 10/08/24 solution (Darzalex) dexamethasone 4 mg tablet 4 mg PO UD Treatment Days 03/21/24 10/08/24 pantoprazole 40 mg tablet,delayed 20 mg PO DAILY 03/21/24 10/08/24 release cyanocobalamin (vitamin B-12) 1,000 mcg PO .Q OTHER DAY 07/06/24 10/08/24 1,000 mcg tablet (Vitamin B-12) ergocalciferol (vitamin D2) 1,250 50,000 unit PO WK 07/06/24 10/08/24 mcg (50,000 unit) capsule sennosides 8.6 mg-docusate sodium 1 tab-cap PO DAILY PRN Constipation 07/06/24 10/08/24 50 mg tablet (Senna Plus) dutasteride 0.5 mg capsule 0.5 mg PO QAM 09/10/24 10/08/24 acetaminophen 500 mg tablet 1,000 mg PO UD 10/08/24 10/08/24 polyethylene glycol 3350 17 17 g PO DAILY PRN Constipation 10/08/24 10/08/24 gram/dose oral powder (Miralax) Previous Rx's Medication Instructions Recorded folic acid 1 mg tablet 1 mg PO QAM #30 tabs 04/03/22 magnesium oxide 400 mg (241.3 mg 400 mg PO QAM #30 tabs 04/03/22 magnesium) tablet metoprolol tartrate 25 mg tablet 25 mg PO BID #60 tabs 04/03/22 thiamine HCl (vitamin B1) 100 mg 200 mg (2 x 100 mg) PO BID #60 tabs 04/03/22 tablet potassium citrate 10 mEq (1,080 1,080 mg PO DAILY 90 days #90 tabs 03/02/24 mg) tablet,extended release apixaban 5 mg tablet (Eliquis) 5 mg PO BID #180 tabs 07/03/24 Breo Ellipta 200 mcg-25 mcg/dose 1 inh inhalation QAM #1 inhaler 09/21/24 powder for inhalation (fluticasone furoate-vilanterol) Results & Data (ED) Vital Signs Vital Signs - 24 hr 10/08/24 12:14 10/08/24 12:45 10/08/24 12:48 Temperature 36.5 C Temperature Source Temporal Artery Scan Pulse Rate 74 67 Pulse Rate [Apical] Pulse Rate from SpO2 Sensor Pulse Rhythm Regular Pulse Strength Normal Respiratory Rate 20 Respiratory Effort / Characteristics Non-Labored Spontaneous Respiratory Depth Normal Respiratory Pattern Regular Blood Pressure 181/131 H 148/104 H Blood Pressure [Right Arm] Blood Pressure Mean 147 121 Blood Pressure Mean [Right Arm] Blood Pressure Position Sitting Blood Pressure Position [Right Arm] Pulse Oximetry 96 Oxygen Delivery Method Room Air Sepsis Recent Fever Within 48 Hours No Sepsis New/Unexplained Change in Mental Status No Sepsis Action Taken by Nursing No Action Required 10/08/24 12:59 10/08/24 13:01 10/08/24 13:05 Temperature Temperature Source Pulse Rate 68 71 Pulse Rate [Apical] Pulse Rate from SpO2 Sensor 69 68 Pulse Rhythm Pulse Strength Respiratory Rate 17 18 Respiratory Effort / Characteristics Respiratory Depth Respiratory Pattern Blood Pressure 133/94 Blood Pressure [Right Arm] Blood Pressure Mean 113 Blood Pressure Mean [Right Arm] Blood Pressure Position Blood Pressure Position [Right Arm] Pulse Oximetry 96 95 Oxygen Delivery Method Sepsis Recent Fever Within 48 Hours Sepsis New/Unexplained Change in Mental Status Sepsis Action Taken by Nursing 10/08/24 13:38 10/08/24 13:59 10/08/24 14:05 Temperature Temperature Source Pulse Rate 62 62 64 Pulse Rate [Apical] Pulse Rate from SpO2 Sensor 61 71 68 Pulse Rhythm Pulse Strength Respiratory Rate 15 24 19 Respiratory Effort / Characteristics Respiratory Depth Respiratory Pattern Blood Pressure Blood Pressure [Right Arm] Blood Pressure Mean Blood Pressure Mean [Right Arm] Blood Pressure Position Blood Pressure Position [Right Arm] Pulse Oximetry 96 96 98 Oxygen Delivery Method Sepsis Recent Fever Within 48 Hours Sepsis New/Unexplained Change in Mental Status Sepsis Action Taken by Nursing 10/08/24 14:06 10/08/24 14:14 10/08/24 14:14 Temperature Temperature Source Pulse Rate Pulse Rate [Apical] Pulse Rate from SpO2 Sensor Pulse Rhythm Pulse Strength Respiratory Rate Respiratory Effort / Characteristics Respiratory Depth Respiratory Pattern Blood Pressure 181/85 H Blood Pressure [Right Arm] Blood Pressure Mean 140 Blood Pressure Mean [Right Arm] Blood Pressure Position Blood Pressure Position [Right Arm] Pulse Oximetry 97 97 Oxygen Delivery Method Room Air Room Air Sepsis Recent Fever Within 48 Hours Sepsis New/Unexplained Change in Mental Status Sepsis Action Taken by Nursing 10/08/24 14:14 10/08/24 15:00 10/08/24 17:00 Temperature Temperature Source Pulse Rate Pulse Rate [Apical] 71 83 Pulse Rate from SpO2 Sensor Pulse Rhythm Pulse Strength Respiratory Rate 18 18 Respiratory Effort / Characteristics Respiratory Depth Respiratory Pattern Blood Pressure Blood Pressure [Right Arm] 182/93 H Blood Pressure Mean Blood Pressure Mean [Right Arm] 122 Blood Pressure Position Blood Pressure Position [Right Arm] Semi-fowlers Pulse Oximetry 97 96 97 Oxygen Delivery Method Room Air Room Air Sepsis Recent Fever Within 48 Hours Sepsis New/Unexplained Change in Mental Status Sepsis Action Taken by Nursing 10/08/24 17:22 Temperature Temperature Source Pulse Rate 67 Pulse Rate [Apical] Pulse Rate from SpO2 Sensor Pulse Rhythm Pulse Strength Respiratory Rate Respiratory Effort / Characteristics Respiratory Depth Respiratory Pattern Blood Pressure Blood Pressure [Right Arm] Blood Pressure Mean Blood Pressure Mean [Right Arm] Blood Pressure Position Blood Pressure Position [Right Arm] Pulse Oximetry Oxygen Delivery Method Sepsis Recent Fever Within 48 Hours Sepsis New/Unexplained Change in Mental Status Sepsis Action Taken by Nursing Laboratory Data 10/08/24 13:00 10/08/24 13:00 Lab Results 10/08/24 10/08/24 Range/Units 13:00 14:12 WBC 9.25 (4.8-10.8) K/ul RBC 4.35 L (4.70-6.10) M/uL Hgb 13.2 L (14.0-18.0) g/dl Hct 40.9 L (42.0-52.0) % MCV 94.0 (80.0-100.0) fL MCH 30.3 (25.0-34.0) pg MCHC 32.3 (32.0-36.0) g/dL RDW Std Deviation 47.8 H (36.4-46.3) fL RDW Coeff of Eyal 14.0 (11.5-14.5) % Plt Count 194 (130-400) K/uL MPV 9.9 (9.4-12.4) fL Immature Gran % (Auto) 0.4 % Neut % (Auto) 78.8 % Lymph % (Auto) 9.9 % [place] % (Auto) 7.9 % Eos % (Auto) 2.6 % Baso % (Auto) 0.4 % Neut # (Auto) 7.28 H (1.40-6.50) K/uL Lymph # (Auto) 0.92 L (1.20-3.40) K/uL [place] # (Auto) 0.73 H (0.11-0.59) K/uL Eos # (Auto) 0.24 (0.00-0.50) K/uL Baso # (Auto) 0.04 (0.00-0.20) K/uL Immature Gran # (Auto) 0.04 (0.01-0.20) K/uL PT 11.2 (9.0-12.0) Seconds INR 1.0 (0.9-1.1) APTT 28 (21-31) Seconds PTT Ratio 1.0 Sodium 142 (136-145) mmol/L Potassium 4.1 (3.5-5.1) mmol/L Chloride 110 H (98-107) mmol/L Carbon Dioxide 24 (21-32) mmol/L Anion Gap 8 (3-11) BUN 23 (6-23) mg/dl Creatinine 0.91 (0.6-1.4) mg/dl Est Cr Clr Drug Dosing Not Reportable eGFR 85.73 BUN/Creatinine Ratio 25.3 H (10-20) Glucose 110 H (70-99(Fasting)) mg/dl Calcium 9.0 (8.6-10.3) mg/dl Magnesium 1.9 (1.7-2.4) mg/dl Total Bilirubin 0.3 (0.2-1.0) mg/dl AST 14 (13-39) U/L ALT 14 (7-52) U/L Alkaline Phosphatase 64 (34-104) U/L Troponin I High Sens 9.6 (0-20) pg/ml Total Protein 6.2 (6.0-8.3) gm/dl Albumin 4.1 (3.4-5.0) gm/dl Globulin 2.1 L (2.5-4.0) gm/dl Albumin/Globulin Ratio 2.0 (0.9-2) TSH 2.868 (0.300-4.500) uIu/ml Urine Color Yellow Urine Appearance Clear (Clear) Urine pH 5.0 (4.5-7.5) Ur Specific Flan[place] 1.045 H (1.000-1.030) Urine Protein Negative (Negative) Urine Glucose (UA) Negative (Negative) Urine Ketones Negative (Negative) Urine Blood 2+ H (Negative) Urine Nitrite Negative (Negative) Urine Bilirubin Negative (Negative) Urine Urobilinogen Negative (Negative) Ur Leukocyte Esterase Negative (Negative) Urine WBC (Auto) 0-5 (0-5) /hpf Urine RBC (Auto) 11-20 H (0-2) /hpf U Hyaline Cast (Auto) 0-2 (0-2) /lpf U Epithel Cells (Auto) 0-2 (0-2) /hpf Urine Bacteria (Auto) None Seen (None Seen) Administered Medications Discontinued Medications Sodium Chloride (Nss) 1,000 mls @ 999 mls/hr IV .Q1H1M ONE Stop: 10/08/24 13:57 Last Infusion: 10/08/24 14:44 Dose: Infused Documented By: Admin: 10/08/24 13:23 Dose: 999 mls/hr Documented By: AM Ioversol (Optiray 320 100ml) 94 ml IV ONCE ONE Stop: 10/08/24 14:03 Last Admin: 10/08/24 14:02 Dose: 94 ml Documented By: JAR Imaging Data Radiologist's Impression: Chest X-Ray 10/08/24 12:19 XR chest 1V not portable CLINICAL HISTORY: Weakness COMPARISON STUDY: Chest CT July 06, 2024. Chest radiograph September 10, 2024. FINDINGS: Left internal jugular [id number] is in place. Cardiomegaly is unchanged. There is no evidence for pulmonary edema. There is no pneumothorax or pleural effusion. There is no consolidation to suggest pneumonia. Lobulated right upper lobe nodular densities measure up to 4.5 cm in aggregate. IMPRESSION: 1. No acute cardiopulmonary findings. Stable cardiomegaly. 2. Redemonstration of multiple nodular densities within the right upper lobe, as described above. These have been shown on multiple prior exams although remain indeterminate and continued imaging follow-up is recommended. ACT 112: Negative or not required by law. Electronically signed by: Don Snowden M.D. 10/08/2024 2:46 PM Abdomen/Pelvis CT 10/08/24 12:57 EXAMINATION: CT of the abdomen and pelvis performed after the administration of IV contrast TECHNIQUE: Helical CT images from the lung bases through the symphysis pubis were obtained with contrast. Coronal and sagittal reformatted images were generated at a workstation for further assessment. Dose reduction techniques were achieved by using automatic exposure control and/or adjustment of mA and/or kV according to patient size and/or use of iterative reconstruction technique. COMPARISON: 09/10/2024 HISTORY: Confusion. Weakness FINDINGS: Lower chest: No consolidation. No pleural effusion or pneumothorax. Foci of bandlike atelectasis are scattered throughout the lung bases. The heart appears enlarged and there are heavy coronary calcifications. Prominent mitral annular calcification. There is mild aortic valve calcification. Liver: No suspicious liver lesions. Portal veins appear patent. Gallbladder: No gallstones. No evidence of acute cholecystitis. Persistent intrahepatic and extrahepatic biliary ductal dilatation. The common bile duct measures up to 11 mm as on prior. No visualized common duct stone. Spleen: Normal size. Pancreas: No suspicious pancreatic lesions. The pancreatic duct is not dilated. Adrenal glands: No adrenal nodules. Kidneys: No hydronephrosis or obstructing renal stones. Simple small left renal cyst. Bladder / Pelvic organs: Unremarkable. Bowel: No bowel obstruction. No abnormal bowel wall thickening. The appendix is unremarkable. Lymph nodes: No retroperitoneal, mesenteric, or pelvic lymphadenopathy. Peritoneum / Retroperitoneum: No free fluid or air within the abdomen. Vessels: No infrarenal aortic aneurysm. Heavy aortoiliac calcification. Bones and soft tissues: No suspicious lesion in the bones. Coarsened trabeculae diffusely throughout the bones of the spine and pelvis. Numerous mild compression deformities throughout the thoracic and lumbar spine appear similar to prior. IMPRESSION: No acute findings in the abdomen or pelvis. Persistent trabeculated and osteopenic appearance of the bones, which may be seen with multiple myeloma, as well as numerous mild chronic thoracolumbar compression deformities. Electronically signed by Saman Wallace 10-08-2024 2:[address] 10/08/24 12:57 CT head without contrast History: Trauma Comparison: 07/06/2024 Technique: Using multidetector thin collimation helical acquisition technique, axial, coronal and sagittal CT images from the skull base to the vertex were obtained without intravenous contrast. Dose reduction techniques were achieved by using automatic exposure control and/or adjustment of mA and/or kV according to patient size and/or use of iterative reconstruction technique. Findings: No intracranial hemorrhage, mass-effect, or midline shift. The ventricles are proportionate to the cerebral sulci. The munguia to white matter differentiation of the cerebral hemispheres is preserved. The basal cisterns are patent. There is moderate cerebral atrophy. Moderate, patchy low-attenuation changes in the white matter, most suggestive of sequelae of chronic small vessel ischemic disease. The visualized paranasal sinuses are clear. Mastoid air cells are clear. Impression: No acute intracranial pathology. Electronically signed by Saman Wallace 10-08-2024 2:39 PM Discharge Plan Visit Data Chief Complaint: Confusion Stated Complaint: CONFUSION ED Provider: Andrew Pickett Discharge Problem: AMS (altered mental status), Confusion, Hallucinations Forms Stand Alone Forms: My [facility] Prescriptions Prescriptions: No Action Darzalex 20 mg/mL solution See Rx Instructions IV MONTHLY Rx Instructions: weight based intravenously monthly; Monthly at [facility] center via IV cetirizine [Zyrtec] 10 mg tablet 10 mg PO DAILY Eliquis 5 mg tablet 5 mg PO BID Qty: 180 1RF fluticasone furoate-vilanterol [Breo Ellipta] 200-25 mcg/dose blister with device 1 inh INHALATION QAM Qty: 1 5RF dexamethasone 4 mg tablet 4 mg PO UD Rx Instructions: on treatment days, once a month. pantoprazole 40 mg tablet,delayed release (DR/EC) 20 mg PO DAILY potassium citrate 10 mEq (1,080 mg) tablet extended release 1,080 mg PO DAILY 90 Days Qty: 90 3RF acyclovir 400 mg Tablet 400 mg PO BID citalopram 10 mg tablet 10 mg PO QAM thiamine HCl (vitamin B1) 100 mg Tablet 200 mg PO BID Qty: 60 0RF magnesium oxide 400 mg (241.3 mg magnesium) Tablet 400 mg PO QAM Qty: 30 0RF folic acid 1 mg Tablet 1 mg PO QAM Qty: 30 0RF metoprolol tartrate 25 mg Tablet 25 mg PO BID Qty: 60 0RF sennosides-docusate sodium [Senna Plus] 8.6-50 mg Tablet 1 tab-cap PO DAILY PRN (Reason: Constipation) cyanocobalamin (vitamin B-12) [Vitamin B-12] 1,000 mcg Tablet 1,000 mcg PO .Q OTHER DAY ergocalciferol (vitamin D2) 1,250 mcg (50,000 unit) capsule 50,000 unit PO WK Rx Instructions: Wednesday dutasteride 0.5 mg capsule 0.5 mg PO QAM acetaminophen [Tylenol Ex Str Rapid Release] 500 mg Tablet 1,000 mg PO UD Rx Instructions: Per spouse, she's been giving 1000mg BID pretty consistently for the last couple weeks since his fall. polyethylene glycol 3350 [Miralax] 17 gram/dose Powder 17 g PO DAILY PRN (Reason: Constipation) Referrals Referrals: Corazon Vargas MD [Primary Care Provider] - Discharge Problem: AMS (altered mental status) Qualifiers: Altered mental status type: unspecified Qualified Code(s): R41.82 - Altered mental status, unspecified
[2024-10-08 13:17] LABS: Basophils # (auto) 0.04 K/uL (0.00-0.20); Basophils % (auto) 0.4 %; Eosinophils # (auto) 0.24 K/uL (0.00-0.50); Eosinophils % (auto) 2.6 %; Hematocrit (blood only) 40.9 % (42.0-52.0); Hemoglobin 13.2 g/dl (14.0-18.0); Immature Granulocytes # (auto) 0.04 K/uL (0.01-0.20); Immature Granulocytes % (auto) 0.4 %; Lymphocytes # (auto) 0.92 K/uL (1.20-3.40); Lymphocytes % (auto) 9.9 %; Mean Corpuscular Hemoglobin 30.3 pg (25.0-34.0); Mean Corpuscular Hgb Conc 32.3 g/dL (32.0-36.0); Mean Platelet Volume 9.9 fL (9.4-12.4); Monocytes # (auto) 0.73 K/uL (0.11-0.59); Monocytes % (auto) 7.9 %; Neutrophils # (auto) 7.28 K/uL (1.40-6.50); Neutrophils % (auto) 78.8 %; Platelet Count 194 K/uL (130-400); RDW Standard Deviation 47.8 fL (36.4-46.3); Red Blood Count 4.35 M/uL (4.70-6.10); White Blood Count 9.25 K/ul (4.8-10.8)
[2024-10-08] MEDS: SODIUM CHLORIDE 0.9% 1,000 ML IV ONE (13:23)
[2024-10-08 13:38] LABS: Alanine Aminotransferase 14 U/L (7-52); Albumin Level 4.1 gm/dl (3.4-5.0); Alkaline Phosphatase 64 U/L (34-104); Anion Gap 8 (3-11); Aspartate Aminotransferase 14 U/L (13-39); BUN Creatinine Ratio 25.3 (10-20); Bilirubin,Total 0.3 mg/dl (0.2-1.0); Blood Urea Nitrogen 23 mg/dl (6-23); Carbon Dioxide 24 mmol/L (21-32); Chloride 110 mmol/L (98-107); Globulin 2.1 gm/dl (2.5-4.0); Glucose 110 mg/dl (70-99(Fasting)); Magnesium 1.9 mg/dl (1.7-2.4); Potassium 4.1 mmol/L (3.5-5.1); Sodium 142 mmol/L (136-145); Total Protein 6.2 gm/dl (6.0-8.3)
[2024-10-08 13:43] LABS: Troponin I High Sensitivity 9.6 pg/ml (0-20)
[2024-10-08 13:53] LABS: Thyroid Stimulating Hormone 2.868 uIu/ml (0.300-4.500)
[2024-10-08 13:59] LABS: Partial Thromboplastin Time 28 Seconds (21-31); Prothrombin Time 11.2 Seconds (9.0-12.0)
[2024-10-08] MEDS: OPTIRAY 320 100ml IV ONE (14:02)
[2024-10-08 14:21] LABS: Appearance Urine Clear (Clear); Bacteria Urine Automated None Seen (None Seen); Bilirubin Urine Negative (Negative); Blood Urine 2+ (Negative); Cast Urine Automated 0-2 /lpf (0-2); Color Urine Yellow; Epithelial Cell Urine Auto 0-2 /hpf (0-2); Glucose Urine UA Negative (Negative); Ketones Urine Negative (Negative); Leukocyte Esterase Urine Negative (Negative); Nitrite Urine Negative (Negative); Protein Urine Negative (Negative); Specific Gravity Urine 1.045 (1.000-1.030); Urobilinogen Urine Negative (Negative); WBC Urine Automated 0-5 /hpf (0-5)
--- NOTE | 2024-10-08 14:39 | CT Scan Report ---
CT head without contrast History: Trauma Comparison: 07/06/2024 Technique: Using multidetector thin collimation helical acquisition technique, axial, coronal and sagittal CT images from the skull base to the vertex were obtained without intravenous contrast. Dose reduction techniques were achieved by using automatic exposure control and/or adjustment of mA and/or kV according to patient size and/or use of iterative reconstruction technique. Findings: No intracranial hemorrhage, mass-effect, or midline shift. The ventricles are proportionate to the cerebral sulci. The munguia to white matter differentiation of the cerebral hemispheres is preserved. The basal cisterns are patent. There is moderate cerebral atrophy. Moderate, patchy low-attenuation changes in the white matter, most suggestive of sequelae of chronic small vessel ischemic disease. The visualized paranasal sinuses are clear. Mastoid air cells are clear. Impression: No acute intracranial pathology. Electronically signed by Saman Wallace 10-08-2024 2:39 PM
--- NOTE | 2024-10-08 14:47 | CT Scan Report ---
EXAMINATION: CT of the abdomen and pelvis performed after the administration of IV contrast TECHNIQUE: Helical CT images from the lung bases through the symphysis pubis were obtained with contrast. Coronal and sagittal reformatted images were generated at a workstation for further assessment. Dose reduction techniques were achieved by using automatic exposure control and/or adjustment of mA and/or kV according to patient size and/or use of iterative reconstruction technique. COMPARISON: 09/10/2024 HISTORY: Confusion. Weakness FINDINGS: Lower chest: No consolidation. No pleural effusion or pneumothorax. Foci of bandlike atelectasis are scattered throughout the lung bases. The heart appears enlarged and there are heavy coronary calcifications. Prominent mitral annular calcification. There is mild aortic valve calcification. Liver: No suspicious liver lesions. Portal veins appear patent. Gallbladder: No gallstones. No evidence of acute cholecystitis. Persistent intrahepatic and extrahepatic biliary ductal dilatation. The common bile duct measures up to 11 mm as on prior. No visualized common duct stone. Spleen: Normal size. Pancreas: No suspicious pancreatic lesions. The pancreatic duct is not dilated. Adrenal glands: No adrenal nodules. Kidneys: No hydronephrosis or obstructing renal stones. Simple small left renal cyst. Bladder / Pelvic organs: Unremarkable. Bowel: No bowel obstruction. No abnormal bowel wall thickening. The appendix is unremarkable. Lymph nodes: No retroperitoneal, mesenteric, or pelvic lymphadenopathy. Peritoneum / Retroperitoneum: No free fluid or air within the abdomen. Vessels: No infrarenal aortic aneurysm. Heavy aortoiliac calcification. Bones and soft tissues: No suspicious lesion in the bones. Coarsened trabeculae diffusely throughout the bones of the spine and pelvis. Numerous mild compression deformities throughout the thoracic and lumbar spine appear similar to prior. IMPRESSION: No acute findings in the abdomen or pelvis. Persistent trabeculated and osteopenic appearance of the bones, which may be seen with multiple myeloma, as well as numerous mild chronic thoracolumbar compression deformities. Electronically signed by Saman Wallace 10-08-2024 2:47 PM
--- NOTE | 2024-10-08 14:49 | XRay Report ---
XR chest 1V not portable CLINICAL HISTORY: Weakness COMPARISON STUDY: Chest CT July 06, 2024. Chest radiograph September 10, 2024. FINDINGS: Left internal jugular [id number] is in place. Cardiomegaly is unchanged. There is no akin dence for pulmonary edema. There is no pneumothorax or pleural effusion. There is no consolidation to suggest pneumonia. Lobulated right upper lobe nodular densities measure up to 4.5 cm in aggregate. IMPRESSION: 1. No acute cardiopulmonary findings. Stable cardiomegaly. 2. Redemonstration of multiple nodular densities within the right upper lobe, as described above. The se have been shown on multiple prior exams although remain indeterminate and continued imaging follow -up is recommended. ACT 112: Negative or not required by law. Electronically signed by: Don Snowden M.D. 10/08/2024 2:46 PM
--- NOTE | 2024-10-08 17:13 | History & Physical Report ---
Date of Service October 08, 2024 Assessment & Plan (1) Confusion: Plan #Dementia #Confusion - will admit to tele - CT head no acute findings - CT abd / pelvis no acute findings - CXR neg - UA neg - no obvious evidence of infection - suspect progression of dementia - will start on olanzapine at night + daily prn - discussed with family that he might get worse with delirium during this hospital stay #MM - pt gets monthly infusion of daratumumab, next infusion 10/11/24 - cont acyclovir #h/o PE - cont eliquis #Reactive airway disease - cont Breo #GERD - cont PPI History of Present Illness Chief Complaint: Confustion Primary Care Provider: Corazon Vargas MD 79 yo M with PMHx of MM s/p bone marrow transplant, on darzalex infusion monthly, hx of complicated pna including PCP and cryptococcus in 2021, AFib, h/o PE on DOAC, brought to the ER by family for increasing confusiong for the past 24 hours. Pt's and daughter was at bedside providing history as pt is not a good historian. Pt has had dementia for about 3 years. Over the past few months, his cognition has been declining and he has been more impulsive, having hallucinations. During these periods, he will be out looking for cows and sheep, which he sometime hallucinate. 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 He also goes out to take large equipment to check his property because he thinks people are stealing from him. Over the past 24 hours, pt has been going out of the house even at night. Once he decides to do this, he is not re-directable. If attempted, he can get angry. Pt's is not able to care for him the way he is now and is hoping for some assistance in managing his behavior. He does follow with PCP but PCP is not aware of the changes over the past 24 hours. Allergies Allergy/AdvReac Type Severity Reaction Status Date / Time dexamethasone AdvReac Severe Hallucinati Verified 07/06/24 11:32 on prednisone AdvReac Severe hallucinati Verified 07/06/24 11:32 ons meclizine AdvReac Intermediate HALLUCINATI Verified 07/06/24 11:32 ON sulfamethoxazole AdvReac Intermediate Hallucinati Verified 07/06/24 11:32 [From Bactrim] ng trimethoprim [From Bactrim] AdvReac Intermediate Hallucinati Verified 07/06/24 11:32 ng hydrocodone AdvReac Mild AGITATION Verified 07/06/24 11:32 levofloxacin [From Levaquin] AdvReac Mild muscle Verified 07/06/24 11:32 weakness lisinopril AdvReac Mild Dizziness Verified 07/06/24 11:32 Home Medications Medication Instructions Recorded Confirmed Type acyclovir 400 mg tablet 400 mg PO BID 08/02/18 10/08/24 History citalopram 10 mg tablet 10 mg PO QAM 04/25/19 10/08/24 History folic acid 1 mg tablet 1 mg PO QAM #30 tabs 04/03/22 10/08/24 Rx magnesium oxide 400 mg (241.3 mg 400 mg PO QAM #30 tabs 04/03/22 10/08/24 Rx magnesium) tablet metoprolol tartrate 25 mg tablet 25 mg PO BID #60 tabs 04/03/22 10/08/24 Rx thiamine HCl (vitamin B1) 100 mg 200 mg (2 x 100 mg) PO BID #60 tabs 04/03/22 10/08/24 Rx tablet cetirizine 10 mg tablet (Zyrtec) 10 mg PO DAILY Allergy Symptoms 07/28/23 10/08/24 History daratumumab 20 mg/mL intravenous See Rx Instructions IV MONTHLY 07/28/23 10/08/24 History solution (Darzalex) potassium citrate 10 mEq (1,080 1,080 mg PO DAILY 90 days #90 tabs 03/02/24 10/08/24 Rx mg) tablet,extended release dexamethasone 4 mg tablet 4 mg PO UD Treatment Days 03/21/24 10/08/24 History pantoprazole 40 mg tablet,delayed 20 mg PO DAILY 03/21/24 10/08/24 History release apixaban 5 mg tablet (Eliquis) 5 mg PO BID #180 tabs 07/03/24 10/08/24 Rx cyanocobalamin (vitamin B-12) 1,000 mcg PO .Q OTHER DAY 07/06/24 10/08/24 History 1,000 mcg tablet (Vitamin B-12) ergocalciferol (vitamin D2) 1,250 50,000 unit PO WK 07/06/24 10/08/24 History mcg (50,000 unit) capsule sennosides 8.6 mg-docusate sodium 1 tab-cap PO DAILY PRN Constipation 07/06/24 10/08/24 History 50 mg tablet (Senna Plus) dutasteride 0.5 mg capsule 0.5 mg PO QAM 09/10/24 10/08/24 History Breo Ellipta 200 mcg-25 mcg/dose 1 inh inhalation QAM #1 inhaler 09/21/24 10/08/24 Rx powder for inhalation (fluticasone furoate-vilanterol) acetaminophen 500 mg tablet 1,000 mg PO UD 10/08/24 10/08/24 History polyethylene glycol 3350 17 17 g PO DAILY PRN Constipation 10/08/24 10/08/24 History gram/dose oral powder (Miralax) Past Med/Surg History Problem List (Updated 09/25/24 @ 00:06 by Celestino Evans) Chest pain (Acute) Parapelvic renal cyst Microscopic hematuria Pneumocystis carinii pneumonia Thiamine deficiency Folate deficiency Acute maxillary sinusitis Hypokalemia Pneumonia COVID-19 Metabolic acidosis Vitamin D deficiency Confusion Fall Acute renal failure PCP (pneumocystis jiroveci pneumonia) Muscle weakness (generalized) Fatigue Cryptococcal pneumonitis (Acute) Hypoxia (Acute) Pulmonary infiltrate present on computed tomography (Acute) Acute encephalopathy Abnormal chest CT B12 deficiency Acute respiratory failure with hypoxia Diarrhea Hypokalemia Cryptococcal pneumonitis Gout Current use of terminal manager anticoagulation (Chronic) Calculus of kidney (HFpEF) heart failure with preserved ejection fraction Light chain myeloma (Acute) Acute appendicitis (Acute) Acute appendicitis Metastatic malignant neoplasm of unknown primary site (Acute) Elevated troponin Left shoulder pain (Acute) Rash (Acute) Depression Cancer MULTIPLE MYELOMA (DX'D 2015); stem cell transplant, chemo Osteoporosis 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 Bone marrow replaced by transplant (Acute) SOB (shortness of breath) on exertion Thrombocytopenia Anemia BASELINE 8-9 RANGE Elevated prostate specific antigen (PSA) Sepsis associated hypotension Diastolic dysfunction Abnormal urine finding Encounter for pre-operative examination Pneumonia (Acute) Fever (Acute) Shortness of breath (Acute) Acute UTI (Acute) Medical History (HFpEF) heart failure with preserved ejection fraction Anemia BASELINE 8-9 RANGE BPH loc w urin obs/LUTS Calculus of kidney Cancer MULTIPLE MYELOMA (DX'D 2015); stem cell transplant, chemo Cryptococcal pneumonitis Current use of senior living anticoagulation Depression GERD (gastroesophageal reflux disease) Gout History of nephrolithiasis History of pneumothorax 2019 with lung biopsy History of pulmonary embolism [place]ITINA (hard of hearing) Irregular heartbeat 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 Port-A-Cath in place Left chest Pulmonary embolism 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); 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 SOB (shortness of breath) on exertion Thrombocytopenia Tremor Surgical History Bone marrow replaced by transplant History of cataract surgery RT History of chest tube placement History of lung biopsy benign Family History Father Cardiac disorder Heart disease Mother Cancer Stroke Other No family history of adverse response to anesthesia Social History Smoking Status: Never smoker Second Hand Exposure: No; Do You Dip or Chew Tobacco: No; Hx Alcohol Use: No Hx Substance Use: No Preferred Language: Uzbek Communication Ability: Effective Communication Ability Comment: hard of hearing Visual Impairment: No Limitations Investigative Assistant Required: No Beliefs That Will Affect Care: None marital status: Current Living Situation: Spouse current occupational status: retired How many Children do You have: 0 Feels Safe at Home: Yes Diet: regular during the past year weight has: remained stable Assistive Devices: Cane and Walker Review of Systems Review of Systems: Comprehensive ROS neg Physical Exam Physical Exam: Gen: NAD HEENT: NC/AT, MMM, left upper chest wall port Lungs: CTAB CVS: s1s2 nl, RRR Abd: nl bowel sounds, soft, nontender Ext: depended b/l LE edema Neuro: awake, alert, cooperative, AAO x3 (person, place, time) Results & Data Results & Data Vital Signs (Past 12 Hours) Vital Signs Temp Pulse Pulse Resp BP BP Pulse Ox 10/08/24 15:00 71 18 182/93 H 96 10/08/24 14:14 97 10/08/24 14:14 97 10/08/24 14:14 97 10/08/24 14:06 181/85 H 10/08/24 14:05 64 19 98 10/08/24 13:59 62 24 96 10/08/24 13:38 62 15 96 10/08/24 13:05 71 18 95 10/08/24 13:01 133/94 10/08/24 12:59 68 17 96 10/08/24 12:48 67 10/08/24 12:45 148/104 H 10/08/24 12:14 36.5 C 74 20 181/131 H 96 O2 Del Method 10/08/24 15:00 10/08/24 14:14 Room Air 10/08/24 14:14 Room Air 10/08/24 14:14 Room Air 10/08/24 14:06 10/08/24 14:05 10/08/24 13:59 10/08/24 13:38 10/08/24 13:05 10/08/24 13:01 10/08/24 12:59 10/08/24 12:48 10/08/24 12:45 10/08/24 12:14 Room Air PG Care Time/CCT Total # of Minutes Spent Total Time Spent with Patient: Total time spent is greater than 50% in coordination of care (as documented) at patient's floor/unit and/or counseling patient: Coding Level of Care Code 51609 INT INP/OBS CARE 3/75MIN Diagnoses Confusion R41.0
[2024-10-08] MEDS ORDERED: POLYETHYLENE (MIRALAX) 17 GM PACK PO PRN (19:25)
[2024-10-08] MEDS: METOPROLOL TARTRATE 25 MG TAB PO SCH (21:17)
[2024-10-08] MEDS: THIAMINE HCL 100 MG TAB PO SCH (21:17)
[2024-10-08] MEDS: OLANZapine 5 MG TABLET PO SCH (21:19)
[2024-10-08] MEDS: ACYCLOVIR 400 MG TAB PO SCH (21:19)
[2024-10-08] MEDS: APIXABAN 5 MG TABLET PO SCH (21:19)
[2024-10-09] MEDS: OLANZapine 5 MG TABLET PO PRN (03:15)
[2024-10-09] MEDS: CITALOPRAM 20 MG TAB PO SCH (08:33)
[2024-10-09] MEDS: CYANOCOBALAMIN (B-12) 500 MCG TABLET PO SCH (08:33)
[2024-10-09] MEDS: FOLIC ACID 1 MG TAB PO SCH (08:34)
[2024-10-09] MEDS: FINASTERIDE 5 MG TAB PO SCH (08:34)
[2024-10-09] MEDS: FLUTICASONE/VILANTEROL 200/25MCG 14 PUFFS/INHALER INH SCH (08:34)
[2024-10-09] MEDS: PANTOprazole 40 MG TAB PO SCH (08:35)
[2024-10-09 08:36] LABS: Hematocrit (blood only) 38.5 % (42.0-52.0); Hemoglobin 12.5 g/dl (14.0-18.0); Mean Corpuscular Hemoglobin 30.6 pg (25.0-34.0); Mean Corpuscular Hgb Conc 32.5 g/dL (32.0-36.0); Mean Corpuscular Volume 94.1 fL (80.0-100.0); Mean Platelet Volume 9.9 fL (9.4-12.4); Platelet Count 173 K/uL (130-400); RDW Standard Deviation 48.3 fL (36.4-46.3); Red Blood Count 4.09 M/uL (4.70-6.10); White Blood Count 7.37 K/ul (4.8-10.8)
[2024-10-09 08:56] LABS: Anion Gap 5 (3-11); BUN Creatinine Ratio 17.6 (10-20); Blood Urea Nitrogen 15 mg/dl (6-23); Calcium 8.6 mg/dl (8.6-10.3); Carbon Dioxide 26 mmol/L (21-32); Chloride 111 mmol/L (98-107); Glucose 101 mg/dl (70-99(Fasting)); Magnesium 1.9 mg/dl (1.7-2.4); Phosphorus 3.4 mg/dl (2.5-4.9); Potassium 3.6 mmol/L (3.5-5.1); Sodium 142 mmol/L (136-145)
--- NOTE | 2024-10-09 11:43 | Hospitalist Progress Note ---
Date of Service October 09, 2024 Assessment & Plan (1) Acute encephalopathy: Plan: Most likely acute on chronic encephalopathy patient has baseline dementia presents with worsening confusion will rule out infection CT head and CT abd did not show any acute pathology Urinalysis did not suggest UTI Blood cultures, CRP pending Some improvement in confusion this morning Continue Olnazapine at night (2) Multiple myeloma: Plan: pt gets monthly infusion of daratumumab, next infusion 10/11/24 - cont acyclovir (3) Confusion: Plan Other Chronic condtions: #h/o PE - cont eliquis #Reactive airway disease - cont Breo #GERD - cont PPI Patient may need placement, PT/OT eval pending Admission and Anticipated Discharge Date Admission Date: October 08, 2024 Subjective patient seen and examined in the ER, awake and alert, but still confused Review of Systems Review of Systems: All systems reviewed are negative, apart from the ones contained in the history. Physical Exam Physical Exam: The patient is awake, alert and oriented 2, well developed and well nourished, normocephalic and atraumatic, lying in bed and in no acute distress. HEENT--PERRL, EOMI, mucous membranes and oropharynx mildly dry Neck--supple. No JVD. No bruits. Thyroid normal, trachea midline, no adenopathy. Heart--normal S1 and S2. No murmurs, rubs or gallops. Lungs--clear bilaterally, no respiratory distress, no accessory muscle use. Abdomen--normal bowel sounds and soft. Extremities--no cyanosis or clubbing. No edema. Dermatologic--normal skin turgor, normal color, no abnormal lymph nodes, no rash. Neurologic--cranial nerves II through XII grossly intact. Rheumatologic--normal range of motion. Psychiatric--normal affect. Results & Data Results & Data Vital Signs (Past 12 Hours) Vital Signs Pulse Pulse Resp BP Pulse Ox O2 Del Method 10/09/24 11:20 70 18 112/63 95 Room Air 10/09/24 07:57 67 10/09/24 07:31 85 18 138/107 H 96 Room Air PG Care Time/CCT Total # of Minutes Spent Total Time Spent with Patient: Total time spent is greater than 50% in coordination of care (as documented) at patient's floor/unit and/or counseling patient: Coding Level of Care Code 20084 SUB INP/OBS CARE 2/35MIN Diagnoses Acute encephalopathy G93.40 Multiple myeloma C90.00 Confusion R41.0 Time Spent (min) 35
[2024-10-10] MEDS: OLANZapine 10 MG/2.1 ML SDV IM ONE (00:24)
[2024-10-10] MEDS: OLANZapine 10 MG/2.1 ML SDV IM STA (00:24)
[2024-10-10] MEDS: HALOPERIDOL LACTATE 5 MG/ML 1 ML VIAL IV STA (00:25)
[2024-10-10] MEDS ORDERED: HEPARIN 100 UNIT/ML 5ML FLUSH FLUSH PRN (03:32)
--- NOTE | 2024-10-10 06:24 | Electrocardiogram Report ---
Test Reason : Blood Pressure : */* mmHG Vent. Rate : 65 BPM Atrial Rate : 65 BPM P-R Int : 180 ms QRS Dur : 112 ms QT Int : 428 ms P-R-T Axes : 22 -51 50 degrees QTcB Int : 445 ms Sinus rhythm with Premature atrial complexes in a pattern of bigeminy Left anterior fascicular block Moderate voltage criteria for LVH, may be normal variant ( R in aVL , [place] product ) Cannot rule out Anterior infarct , age undetermined Abnormal ECG When compared with ECG of 06-Jul-2024 08:59, Premature atrial complexes are now Present Vent. rate has decreased by 75 bpm T wave inversion no longer evident in Lateral leads Confirmed by Kurt Araujo ([id number]) on 10/10/2024 6:24:08 AM Referred By: REFERRED SELF Confirmed By: Kurt Araujo
[2024-10-10 06:39] LABS: Hematocrit (blood only) 40.4 % (42.0-52.0); Hemoglobin 13.3 g/dl (14.0-18.0); Mean Corpuscular Hemoglobin 30.6 pg (25.0-34.0); Mean Corpuscular Hgb Conc 32.9 g/dL (32.0-36.0); Mean Corpuscular Volume 92.9 fL (80.0-100.0); Mean Platelet Volume 9.9 fL (9.4-12.4); Platelet Count 194 K/uL (130-400); RDW Standard Deviation 47.2 fL (36.4-46.3); Red Blood Count 4.35 M/uL (4.70-6.10); White Blood Count 8.78 K/ul (4.8-10.8)
[2024-10-10 06:58] LABS: BUN Creatinine Ratio 15.9 (10-20); Creatinine Clr Calc Pharmacy 66.2 ml/min; Potassium 3.8 mmol/L (3.5-5.1)
--- NOTE | 2024-10-10 11:36 | Hospitalist Progress Note ---
Date of Service October 10, 2024 Assessment & Plan (1) Acute encephalopathy: Plan: Most likely acute on chronic encephalopathy patient has baseline dementia presents with worsening confusion no evidence of infection CT head and CT abd did not show any acute pathology Urinalysis did not suggest UTI Blood cultures, negative Some improvement in confusion this morning Continue Olanzapine at night (2) Multiple myeloma: Plan: pt gets monthly infusion of daratumumab, next infusion 10/11/24 at the infusion center - cont acyclovir (3) Confusion: Plan Other Chronic condtions: #h/o PE - cont eliquis #Reactive airway disease - cont Breo #GERD - cont PPI Patient may need placement, PT/OT eval pending Admission and Anticipated Discharge Date Admission Date: October 08, 2024 Subjective patient seen and examined , awake and alert, but still confused, although answered some questions appropriately Review of Systems Review of Systems: All systems reviewed are negative, apart from the ones contained in the history. Physical Exam Physical Exam: The patient is awake, alert and oriented 2, well developed and well nourished, normocephalic and atraumatic, lying in bed and in no acute distress. HEENT--PERRL, EOMI, mucous membranes and oropharynx mildly dry Neck--supple. No JVD. No bruits. Thyroid normal, trachea midline, no adenopathy. Heart--normal S1 and S2. No murmurs, rubs or gallops. Lungs--clear bilaterally, no respiratory distress, no accessory muscle use. Abdomen--normal bowel sounds and soft. Extremities--no cyanosis or clubbing. No edema. Dermatologic--normal skin turgor, normal color, no abnormal lymph nodes, no rash. Neurologic--cranial nerves II through XII grossly intact. Rheumatologic--normal range of motion. Psychiatric--normal affect. Results & Data Results & Data Vital Signs (Past 12 Hours) Vital Signs Temp Pulse Pulse Resp BP Pulse Ox O2 Del Method 10/10/24 08:22 Room Air 10/10/24 07:24 98.1 F 77 18 183/91 H 95 Room Air 10/10/24 03:08 81 18 151/89 H 93 Room Air 10/10/24 00:30 Room Air 10/10/24 00:08 82 PG Care Time/CCT Total # of Minutes Spent Total Time Spent with Patient: Total time spent is greater than 50% in coordination of care (as documented) at patient's floor/unit and/or counseling patient: Coding Level of Care Code 96526 SUB INP/OBS CARE 2/35MIN Diagnoses Acute encephalopathy G93.40 Multiple myeloma C90.00 Confusion R41.0 Time Spent (min) 35
[2024-10-10] MEDS: amLODIPine BESYLATE 5 MG TAB PO ONE (13:28)
[2024-10-11] MEDS: amLODIPine BESYLATE 5 MG TAB PO SCH (07:54)
[2024-10-11] MEDS: ACYCLOVIR 400 MG TAB PO SCH (08:09)
[2024-10-11 10:17] LABS: Hematocrit (blood only) 39.9 % (42.0-52.0); Hemoglobin 13.3 g/dl (14.0-18.0); Mean Corpuscular Hemoglobin 31.1 pg (25.0-34.0); Mean Corpuscular Hgb Conc 33.3 g/dL (32.0-36.0); Mean Corpuscular Volume 93.4 fL (80.0-100.0); Mean Platelet Volume 9.7 fL (9.4-12.4); Platelet Count 203 K/uL (130-400); RDW Standard Deviation 47.7 fL (36.4-46.3); Red Blood Count 4.27 M/uL (4.70-6.10); White Blood Count 7.98 K/ul (4.8-10.8)
[2024-10-11 10:36] LABS: BUN Creatinine Ratio 15.9 (10-20); Calcium 8.9 mg/dl (8.6-10.3); Creatinine Clr Calc Pharmacy 66.2 ml/min; Potassium 3.7 mmol/L (3.5-5.1)
--- NOTE | 2024-10-11 11:33 | Hospitalist Progress Note ---
Date of Service October 11, 2024 Assessment & Plan (1) Acute encephalopathy: Plan: Most likely acute on chronic encephalopathy patient has baseline dementia presents with worsening confusion and now more agitation no evidence of infection CT head and CT abd did not show any acute pathology Urinalysis did not suggest UTI Blood cultures, negative Some improvement in confusion this morning Continue Olanzapine at night Consult Psych to help with medication mgt (2) Multiple myeloma: Plan: pt gets monthly infusion of daratumumab, next infusion was supposed to be 10/11/24 at the infusion center - cont acyclovir (3) Confusion: Plan Other Chronic condtions: #h/o PE - cont eliquis #Reactive airway disease - cont Breo #GERD - cont PPI Plan is for placement, no longer able to take care of patient at home Admission and Anticipated Discharge Date Admission Date: October 10, 2024 Subjective patient seen and examined , awake and alert, but still confused, although answered some questions appropriately, now getting more agitated Review of Systems Review of Systems: unable to obtain Physical Exam Physical Exam: The patient is awake, alert and oriented 2, well developed and well nourished, normocephalic and atraumatic, lying in bed and in no acute distress. HEENT--PERRL, EOMI, mucous membranes and oropharynx mildly dry Neck--supple. No JVD. No bruits. Thyroid normal, trachea midline, no adenopathy. Heart--normal S1 and S2. No murmurs, rubs or gallops. Lungs--clear bilaterally, no respiratory distress, no accessory muscle use. Abdomen--normal bowel sounds and soft. Extremities--no cyanosis or clubbing. No edema. Dermatologic--normal skin turgor, normal color, no abnormal lymph nodes, no rash. Neurologic--cranial nerves II through XII grossly intact. Rheumatologic--normal range of motion. Psychiatric--normal affect. Results & Data Results & Data Vital Signs (Past 12 Hours) Vital Signs Temp Pulse Resp BP Pulse Ox O2 Del Method 10/11/24 09:43 Room Air 10/11/24 07:33 97.7 F 62 20 128/70 94 Room Air PG Care Time/CCT Total # of Minutes Spent Total Time Spent with Patient: Total time spent is greater than 50% in coordination of care (as documented) at patient's floor/unit and/or counseling patient: Coding Level of Care Code 65448 SUB INP/OBS CARE 2/35MIN Diagnoses Acute encephalopathy G93.40 Multiple myeloma C90.00 Confusion R41.0 Time Spent (min) 35
--- NOTE | 2024-10-11 15:33 | Psychiatric Consultation ---
Date of Consultation October 11, 2024 Impression / Recommendations Impression Diagnostically consistent with possible encephalopathy/delirium superimposed on dementia with worsening of dementia. Unclear what type of dementia he has, this new significant worsening could represent step-broussard decline of a vascular dementia vs lewy body dementia given visual hallucinations and reports of recent falls. Unclear if neurology has been involved in the outpatient setting but given that he not on memantine nor a cholinesterase inhibitor and apparently a sister with LBD, would then imagine that Alzheimer's is not suspected. Unfortunately there are no known medications to cure or shorten the duration of delirium; rather antipsychotics are used at times to help with sleep/appetite/psychomotor agitation and hallucinations if these symptoms are causing significant distress and/or interfering with acute safety. Duration of delirium varies broadly with persistent delirium (defined as lasting for weeks or months) occurring frequently with [id number]% of patients exhibiting some symptoms of delirium at 6 months after symptom onset, see:Gideon Garcia., Alyse Acosta., Mane Rodriguez.et al.Delirium.Paz Rev Dis Primers6, 90 (2020). [email or web address]://[email or web address]/[email or web address]. Goal in dementia is to avoid medication management of behaviors if possible by maximizing non-pharmacologic strategies for behavioral management. However, given worsening agitation/aggression could consider starting antipsychotic as risk/benefit profile now favors treatment. Note all antipsychotic medications carry black box warning for increased risk of all-cause mortality in setting of dementia. If he does have lewy body dementia typical antipsychotics such as haldol are contraindicated as this can lead to irreversible parkinsonism features and individuals tend to be more sensitive to atypical antipsychotics with higher risk of akathisia which presents as restlessness. Therefore goal with medication use is to use the lowest possible dose and with significant caution. Overall, I spent a total of 45 minutes with this case including review of chart records, review of labwork, review of EKG QTc, direct evaluation of the patient at bedside, counseling the patient, discussion of the patient with the Nurse and with the hospitalist provider, discussion with the psychiatric liason during clinical rounds, review of collateral historian information from the family and documentation in the electronic health record. (1) Confusion: (2) Dementia: Plan -1-on-1 prn -Medications: * Can continue with olanzapine to determine if it will offer any benefit as delirium resolves * Alternatively: * could trial Seroquel 50mg HS po and 12.5mg BID prn for agitation/restlessness * OR abilify 2.5mg HS and 2.5mg daily prn to see if either of these offers any more benefit. * If you start to think it's more of a worsening of dementia rather than delirium then could also consider use of low dose ativan prn for restlessness to see if this helps. -Consider melatonin 3mg qhs -Continue medical workup to rule out and treat any underlying causes contributing to potential delirium, avoid or limit use of deliriogenic medications (benzodiazepines, opioids, anticholinergics) -Continue with delirium prevention measures: raising blinds during the day, closing at night, frequent re-orientation, contact with family/friends, explaining procedures/nursing care measures prior to physical contact, correct any hearing and visual impairments -For behavioral emergency: olanzapine 2.5 mg IM x 1 (DO NOT exceed 10mg per 24 hours, check EKG if IM dose required, NEVER co-administer with IM or IV benzodiazepines). Psych History Identifying Data 79 yo man with dementia, MM s/p bone marrow transplant, on darzalex infusion monthly, hx of complicated pna including PCP and cryptococcus in 2021, AFib, h/o PE on DOAC, admitted medically for increasing confusion. Psychiatry consulted for recommendations for agitation. Chief Complaint "Good". 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 He also experiences visual hallucinations of seeing cows and sheep which are not there (but which the family used to have). Since admission periods of significant restlessness and agitation requiring scheduled olanzapine and one olanzapine 10mg IM dose and olanzapine 5mg po prn doses. Per RN he doesn't show much benefit from po olanzapine doses. Today he is awake, lying in bed with soft restraints. Reports his mood is "good", pleasant, denies any pain. Tells me he likes TV and music but his responses were mumbled so difficult to determine precisely what he was saying. Allergies Allergy/AdvReac Type Severity Reaction Status Date / Time dexamethasone AdvReac Severe Hallucinati Verified 07/06/24 11:32 on prednisone AdvReac Severe hallucinati Verified 07/06/24 11:32 ons meclizine AdvReac Intermediate HALLUCINATI Verified 07/06/24 11:32 ON sulfamethoxazole AdvReac Intermediate Hallucinati Verified 07/06/24 11:32 [From Bactrim] ng trimethoprim [From Bactrim] AdvReac Intermediate Hallucinati Verified 07/06/24 11:32 ng hydrocodone AdvReac Mild AGITATION Verified 07/06/24 11:32 levofloxacin [From Levaquin] AdvReac Mild muscle Verified 07/06/24 11:32 weakness lisinopril AdvReac Mild Dizziness Verified 07/06/24 11:32 Home Medications Medication Instructions Recorded Confirmed Type acyclovir 400 mg tablet 400 mg PO BID 08/02/18 10/08/24 History citalopram 10 mg tablet 10 mg PO QAM 04/25/19 10/08/24 History folic acid 1 mg tablet 1 mg PO QAM #30 tabs 04/03/22 10/08/24 Rx magnesium oxide 400 mg (241.3 mg 400 mg PO QAM #30 tabs 04/03/22 10/08/24 Rx magnesium) tablet metoprolol tartrate 25 mg tablet 25 mg PO BID #60 tabs 04/03/22 10/08/24 Rx thiamine HCl (vitamin B1) 100 mg 200 mg (2 x 100 mg) PO BID #60 tabs 04/03/22 10/08/24 Rx tablet cetirizine 10 mg tablet (Zyrtec) 10 mg PO DAILY Allergy Symptoms 07/28/23 10/08/24 History daratumumab 20 mg/mL intravenous See Rx Instructions IV MONTHLY 07/28/23 10/08/24 History solution (Darzalex) potassium citrate 10 mEq (1,080 1,080 mg PO DAILY 90 days #90 tabs 03/02/24 10/08/24 Rx mg) tablet,extended release dexamethasone 4 mg tablet 4 mg PO UD Treatment Days 03/21/24 10/08/24 History pantoprazole 40 mg tablet,delayed 20 mg PO DAILY 03/21/24 10/08/24 History release apixaban 5 mg tablet (Eliquis) 5 mg PO BID #180 tabs 07/03/24 10/08/24 Rx cyanocobalamin (vitamin B-12) 1,000 mcg PO .Q OTHER DAY 07/06/24 10/08/24 History 1,000 mcg tablet (Vitamin B-12) ergocalciferol (vitamin D2) 1,250 50,000 unit PO WK 07/06/24 10/08/24 History mcg (50,000 unit) capsule sennosides 8.6 mg-docusate sodium 1 tab-cap PO DAILY PRN Constipation 07/06/24 10/08/24 History 50 mg tablet (Senna Plus) dutasteride 0.5 mg capsule 0.5 mg PO QAM 09/10/24 10/08/24 History Breo Ellipta 200 mcg-25 mcg/dose 1 inh inhalation QAM #1 inhaler 09/21/24 10/08/24 Rx powder for inhalation (fluticasone furoate-vilanterol) acetaminophen 500 mg tablet 1,000 mg PO UD 10/08/24 10/08/24 History polyethylene glycol 3350 17 17 g PO DAILY PRN Constipation 10/08/24 10/08/24 History gram/dose oral powder (Miralax) Patient History Medical History (HFpEF) heart failure with preserved ejection fraction Anemia BASELINE 8-9 RANGE BPH loc w urin obs/LUTS Calculus of kidney Cancer MULTIPLE MYELOMA (DX'D 2015); stem cell transplant, chemo Cryptococcal pneumonitis 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 Depression GERD (gastroesophageal reflux disease) Gout History of nephrolithiasis History of pneumothorax 2020 with lung biopsy History of pulmonary embolism GRAND TRAVERSE (hard of hearing) Irregular heartbeat 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 Port-A-Cath in place Left chest Pulmonary embolism 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); 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 SOB (shortness of breath) on exertion Thrombocytopenia Tremor Surgical History Bone marrow replaced by transplant History of cataract surgery RT History of chest tube placement History of lung biopsy benign Family History Father Cardiac disorder Heart disease Mother Cancer Stroke Other No family history of adverse response to anesthesia Social History Smoking Status: Never smoker Second Hand Exposure: No; Do You Dip or Chew Tobacco: No; Hx Alcohol Use: No Hx Substance Use: No Preferred Language: Maldivian Communication Ability: Effective Communication Ability Comment: hard of hearing Visual Impairment: No Limitations 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 Beliefs That Will Affect Care: None marital status: Current Living Situation: Spouse current occupational status: retired How many Children do You have: 0 Feels Safe at Home: Yes Safety Concerns: Feels Safe At This Time Diet: regular during the past year weight has: remained stable Assistive Devices: Cane and Walker Physical Exam Vital Signs (Past 24 Hours): Last Vital Signs Temp 36.4 C L 10/11/24 15:25 Pulse 90 10/11/24 15:25 Resp 18 10/11/24 15:25 BP 159/86 H 10/11/24 15:25 Pulse Ox 96 10/11/24 15:25 O2 Del Method Room Air 10/11/24 15:25 Results & Data (PSY) Medications Administered Acyclovir (Acyclovir 400 Mg Tab) 400 mg PO BID [facility] Stop: 11/10/24 08:59 Last Admin: 10/11/24 08:09 Dose: 400 mg Documented By: HOLDEN Amlodipine Besylate (Amlodipine Besylate 5 Mg Tab) [facility] [place]: 11/10/24 08:59 Last Admin: 10/11/24 07:54 Dose: 5 mg Documented By: HOLDEN Apixaban (Apixaban 5 Mg Tablet) 5 mg PO BID [facility] Stop: 11/07/24 20:59 Last Admin: 10/11/24 07:56 Dose: 5 mg Documented By: Admin: 10/10/24 22:11 Dose: 5 mg Documented By: Admin: 10/10/24 08:15 Dose: 5 mg Documented By: VLADIMIR(2) Admin: 10/09/24 20:14 Dose: 5 mg Documented By: Admin: 10/09/24 08:33 Dose: 5 mg Documented By: Admin: 10/08/24 21:19 Dose: 5 mg Documented By: ARIEL Citalopram Hydrobromide (Citalopram 20 Mg Tab) 10 mg PO QAM [facility] Stop: 11/08/24 08:59 Last Admin: 10/11/24 07:55 Dose: 10 mg Documented By: Admin: 10/10/24 08:15 Dose: 10 mg Documented By: VLADIMIR(2) Admin: 10/09/24 08:33 Dose: 10 mg Documented By: ENRRIQUE Cyanocobalamin (Cyanocobalamin (B-12) 500 Mcg Tablet) 1,000 mcg PO Q2D [facility]N Stop: 11/08/24 08:59 Last Admin: 10/11/24 07:55 Dose: 1,000 mcg Documented By: Admin: 10/09/24 08:33 Dose: 1,000 mcg Documented By: ENRRIQUE Finasteride (Finasteride 5 Mg Tab) 5 mg PO QAM [facility]N Stop: 11/08/24 08:59 Last Admin: 10/11/24 07:55 Dose: 5 mg Documented By: Admin: 10/10/24 08:15 Dose: 5 mg Documented By: VLADIMIR(2) Admin: 10/09/24 08:34 Dose: 5 mg Documented By: ENRRIQUE Fluticasone/Vilanterol (Fluticasone/Vilanterol 200/25mcg 14 Puffs/Inhaler) 1 puffs INH QAM CYN Stop: 11/08/24 08:59 Last Admin: 10/11/24 07:57 Dose: 1 puffs Documented By: Admin: 10/10/24 08:16 Dose: 1 puffs Documented By: VLADIMIR(2) Admin: 10/09/24 08:34 Dose: 1 puffs Documented By: ENRRIQUE Folic Acid (Folic Acid 1 Mg Tab) 1 mg PO QAM CYN Stop: 11/08/24 08:59 Last Admin: 10/11/24 07:56 Dose: 1 mg Documented By: Admin: 10/10/24 08:15 Dose: 1 mg Documented By: VLADIMIR(2) Admin: 10/09/24 08:34 Dose: 1 mg Documented By: ENRRIQUE Metoprolol Tartrate (Metoprolol Tartrate 25 Mg Tab) 25 mg PO BID CYN Stop: 11/07/24 20:59 Last Admin: 10/11/24 07:56 Dose: 25 mg Documented By: Admin: 10/10/24 22:20 Dose: 25 mg Documented By: Admin: 10/10/24 08:15 Dose: 25 mg Documented By: VLADIMIR(2) Admin: 10/09/24 20:14 Dose: 25 mg Documented By: Admin: 10/09/24 08:38 Dose: 25 mg Documented By: Admin: 10/08/24 21:17 Dose: 25 mg Documented By: ARIEL Olanzapine (Olanzapine 5 Mg Tablet) 5 mg PO HS CYN Stop: 11/07/24 20:59 Last Admin: 10/10/24 22:11 Dose: 5 mg Documented By: Admin: 10/09/24 20:14 Dose: 5 mg Documented By: Admin: 10/08/24 21:19 Dose: 5 mg Documented By: ARIEL Olanzapine (Olanzapine 5 Mg Tablet) 5 mg PO DAILY PRN PRN Reason: Agitation Stop: 11/07/24 19:24 Last Admin: 10/11/24 08:03 Dose: 5 mg Documented By: Admin: 10/09/24 03:15 Dose: 5 mg Documented By: ELLA Pantoprazole Sodium (Pantoprazole 40 Mg Tab) 20 mg PO DAILY CYN Stop: 11/08/24 08:59 Last Admin: 10/11/24 07:56 Dose: 20 mg Documented By: Admin: 10/10/24 08:15 Dose: 20 mg Documented By: VLADIMIR(2) Admin: 10/09/24 08:35 Dose: 20 mg Documented By: ENRRIQUE Thiamine HCl (Thiamine Hcl 100 Mg Tab) 200 mg PO BID CYN Stop: 11/07/24 20:59 Last Admin: 10/11/24 07:54 Dose: 200 mg Documented By: Admin: 10/10/24 22:11 Dose: 200 mg Documented By: Admin: 10/10/24 08:15 Dose: 200 mg Documented By: VLADIMIR(2) Admin: 10/09/24 20:15 Dose: 200 mg Documented By: Admin: 10/09/24 08:33 Dose: 200 mg Documented By: Admin: 10/08/24 21:17 Dose: 200 mg Documented By: ARIEL Coding Level of Care Code 35232 IN/OBS CONSULT LVL 3,45M Diagnoses Confusion R41.0 Dementia F03.90
[2024-10-12] MEDS: OLANZapine 10 MG/2.1 ML SDV IM STA (04:12)
--- NOTE | 2024-10-12 04:35 | Communication Note ---
Date of Service: October 12, 2024 Contacted by nursing at 0400 saying that patient was agitated and becoming violent with the staff. Order placed for UE soft restraints and for Zyprexa 10mg IM. Subsequently informed that patient was bladder scanned and informed that the patient has been retaining urine and not spontaneously urinating requiring multiple straight catheterizations. Order placed for munoz cath placed. Patient was seen and examined, remains agitated. Stronly suspect this is largely delirium, but given violence towards staff and risk of injury to self, feel that physical and chemical restraints are appropriate at this time. Resident Activity Tracking Resident Involvement: Resident Care Provided Care Provided: Adult [facility] Medicine
[2024-10-12 07:34] LABS: Hematocrit (blood only) 39.6 % (42.0-52.0); Hemoglobin 13.2 g/dl (14.0-18.0); Mean Corpuscular Hemoglobin 31.1 pg (25.0-34.0); Mean Corpuscular Hgb Conc 33.3 g/dL (32.0-36.0); Mean Corpuscular Volume 93.2 fL (80.0-100.0); Mean Platelet Volume 9.7 fL (9.4-12.4); Platelet Count 196 K/uL (130-400); RDW Standard Deviation 47.5 fL (36.4-46.3); Red Blood Count 4.25 M/uL (4.70-6.10); White Blood Count 8.73 K/ul (4.8-10.8)
[2024-10-12 07:46] LABS: BUN Creatinine Ratio 15.5 (10-20); Creatinine Clr Calc Pharmacy 64.4 ml/min; Potassium 3.8 mmol/L (3.5-5.1)
--- NOTE | 2024-10-12 10:37 | Hospitalist Progress Note ---
Date of Service October 12, 2024 Assessment & Plan (1) Acute encephalopathy: Plan: Most likely acute on chronic encephalopathy patient has baseline dementia presents with worsening confusion and now more agitation no evidence of infection CT head and CT abd did not show any acute pathology Urinalysis did not suggest UTI Blood cultures, negative currently on restraints Olanzapine at night didt help him sleep, will trial Quetiapine and melatonin Also continue Quetiapine PRN and Olanzapine PRN for agitation (2) Multiple myeloma: Plan: pt gets monthly infusion of daratumumab, next infusion was supposed to be 10/11/24 at the infusion center - cont acyclovir (3) Confusion: Plan Other Chronic condtions: #h/o PE - cont eliquis #Reactive airway disease - cont Breo #GERD - cont PPI Plan is for placement, no longer able to take care of patient at home Admission and Anticipated Discharge Date Admission Date: October 10, 2024 Subjective patient seen and examined , awake and alert, but still confused,agitated, on restarints Review of Systems Review of Systems: unable to obtain Physical Exam Physical Exam: The patient is awake, alert and oriented 2, well developed and well nourished, normocephalic and atraumatic, lying in bed and in no acute distress. HEENT--PERRL, EOMI, mucous membranes and oropharynx mildly dry Neck--supple. No JVD. No bruits. Thyroid normal, trachea midline, no adenopathy. Heart--normal S1 and S2. No murmurs, rubs or gallops. Lungs--clear bilaterally, no respiratory distress, no accessory muscle use. Abdomen--normal bowel sounds and soft. Extremities--no cyanosis or clubbing. No edema. Dermatologic--normal skin turgor, normal color, no abnormal lymph nodes, no rash. Neurologic--cranial nerves II through XII grossly intact. Rheumatologic--normal range of motion. Psychiatric--normal affect. Results & Data Results & Data Vital Signs (Past 12 Hours) Vital Signs Temp Pulse Resp BP Pulse Ox O2 Del Method 10/12/24 07:26 97.7 F 84 18 145/71 H 95 Room Air 10/11/24 23:10 Room Air 10/11/24 22:39 97.9 F 69 18 169/81 H 95 Room Air PG Care Time/CCT Total # of Minutes Spent Total Time Spent with Patient: Total time spent is greater than 50% in coordination of care (as documented) at patient's floor/unit and/or counseling patient: Coding Level of Care Code 53803 SUB INP/OBS CARE 2/35MIN Diagnoses Acute encephalopathy G93.40 Multiple myeloma C90.00 Confusion R41.0 Time Spent (min) 35
[2024-10-12] MEDS: QUEtiapine FUMARATE 25 MG TABLET PO PRN (17:16)
[2024-10-12] MEDS: MELATONIN 3 MG TAB PO SCH (20:03)
[2024-10-12] MEDS: QUEtiapine FUMARATE 25 MG TABLET PO SCH (20:03)
[2024-10-13] MEDS: hydrALAZINE HCL 20 MG/ML VIAL IV PRN (11:04)
[2024-10-13] MEDS: OLANZapine 10 MG/2.1 ML SDV IM STA ×2 (11:45→20:19)
--- NOTE | 2024-10-13 14:31 | Hospitalist Progress Note ---
Date of Service October 13, 2024 Assessment & Plan (1) Acute encephalopathy: Plan: Most likely acute on chronic encephalopathy patient has baseline dementia presents with worsening confusion and now more agitation no evidence of infection CT head and CT abd did not show any acute pathology Urinalysis did not suggest UTI Blood cultures, negative currently on restraints Olanzapine at night didt help him sleep, will trial Quetiapine and melatonin Also continue Quetiapine PRN and Olanzapine PRN for agitation (2) Multiple myeloma: Plan: pt gets monthly infusion of daratumumab, next infusion was supposed to be 10/11/24 at the infusion center, but per family has not gotten the last 2 months of infusion - cont acyclovir (3) Confusion: Plan Other Chronic condtions: #h/o PE - cont eliquis #Reactive airway disease - cont Breo #GERD - cont PPI Plan is for placement, no longer able to take care of patient at home. Not medically stable for discharge Admission and Anticipated Discharge Date Admission Date: October 10, 2024 Subjective patient seen and examined , awake and alert, but still confused,agitated, on restraints Review of Systems Review of Systems: unable to obtain Physical Exam Physical Exam: The patient is awake, alert and oriented 2, well developed and well nourished, normocephalic and atraumatic, lying in bed and in no acute distress. HEENT--PERRL, EOMI, mucous membranes and oropharynx mildly dry Neck--supple. No JVD. No bruits. Thyroid normal, trachea midline, no adenopathy. Heart--normal S1 and S2. No murmurs, rubs or gallops. Lungs--clear bilaterally, no respiratory distress, no accessory muscle use. Abdomen--normal bowel sounds and soft. Extremities--no cyanosis or clubbing. No edema. Dermatologic--normal skin turgor, normal color, no abnormal lymph nodes, no rash. Neurologic--cranial nerves II through XII grossly intact. Rheumatologic--normal range of motion. Psychiatric--normal affect. Results & Data Results & Data Vital Signs (Past 12 Hours) Vital Signs Temp Pulse Resp BP Pulse Ox O2 Del Method 10/13/24 12:43 98.6 F 111 H 17 144/88 H 94 Room Air 10/13/24 07:27 97.7 F 95 H 17 182/87 H 93 Room Air PG Care Time/CCT Total # of Minutes Spent Total Time Spent with Patient: Total time spent is greater than 50% in coordination of care (as documented) at patient's floor/unit and/or counseling patient: Coding Level of Care Code 60362 SUB INP/OBS CARE 2/35MIN Diagnoses Acute encephalopathy G93.40 Multiple myeloma C90.00 Confusion R41.0 Time Spent (min) 35
--- NOTE | 2024-10-13 17:16 | Electrocardiogram Report ---
Test Reason : Blood Pressure : */* mmHG Vent. Rate : 77 BPM Atrial Rate : 77 BPM P-R Int : 148 ms QRS Dur : 108 ms QT Int : 404 ms P-R-T Axes : 46 -58 67 degrees QTcB Int : 457 ms Sinus rhythm with Premature ventricular complexes Left anterior fascicular block Abnormal ECG When compared with ECG of 08-Oct-2024 12:43, No significant change was found Confirmed by Kurt Araujo ([id number]) on 10/13/2024 5:16:35 PM Referred By: REFERRED SELF Confirmed By: Kurt Araujo
[2024-10-13] MEDS: LORazepam 2 MG/1 ML VIAL ONE (17:52)
[2024-10-13] MEDS: LORazepam 2 MG/1 ML VIAL IV STA (17:53)
[2024-10-14] MEDS: OLANZapine 10 MG/2.1 ML SDV IM STA (00:23)
[2024-10-14] MEDS: LORazepam 2 MG/1 ML VIAL IV STA ×2 (03:47→15:42)
[2024-10-14 07:34] LABS: Hematocrit (blood only) 42.6 % (42.0-52.0); Mean Corpuscular Hemoglobin 31.3 pg (25.0-34.0); Mean Corpuscular Hgb Conc 32.9 g/dL (32.0-36.0); Mean Corpuscular Volume 95.3 fL (80.0-100.0); Mean Platelet Volume 9.6 fL (9.4-12.4); Platelet Count 239 K/uL (130-400); RDW Coefficient of Variation 14.1 % (11.5-14.5); RDW Standard Deviation 49.4 fL (36.4-46.3); Red Blood Count 4.47 M/uL (4.70-6.10); White Blood Count 16.58 K/ul (4.8-10.8)
[2024-10-14 08:16] LABS: BUN Creatinine Ratio 18.2 (10-20); Calcium 9.4 mg/dl (8.6-10.3); Creatinine Clr Calc Pharmacy 58.5 ml/min; Potassium 4.1 mmol/L (3.5-5.1)
--- NOTE | 2024-10-14 13:58 | Hospitalist Progress Note ---
Date of Service October 14, 2024 Assessment & Plan (1) Acute encephalopathy: Plan: Most likely acute on chronic encephalopathy patient has baseline dementia according to family members presents with worsening confusion and now more agitation, needing restraints no evidence of infection CT head and CT abd did not show any acute pathology Urinalysis did not suggest UTI Blood cultures, negative currently on restraints Quetiapine, melatonin at night to help him sleep, Also continue Quetiapine PRN and Olanzapine PRN for agitation (2) Multiple myeloma: Plan: pt gets monthly infusion of daratumumab, next infusion was supposed to be 10/11/24 at the infusion center, but per family has not gotten the last 2 months of infusion - cont acyclovir (3) Confusion: Plan Other Chronic condtions: #h/o PE - cont eliquis #Reactive airway disease - cont Breo #GERD - cont PPI Plan is for placement, no longer able to take care of patient at home. Not medically stable for discharge yet Admission and Anticipated Discharge Date Admission Date: October 10, 2024 Subjective patient seen and examined , awake and alert, but still confused,agitated, on restraints Review of Systems Review of Systems: unable to obtain Physical Exam Physical Exam: The patient is awake, alert and oriented 2, well developed and well nourished, normocephalic and atraumatic, lying in bed and in no acute distress. HEENT--PERRL, EOMI, mucous membranes and oropharynx mildly dry Neck--supple. No JVD. No bruits. Thyroid normal, trachea midline, no adenopathy. Heart--normal S1 and S2. No murmurs, rubs or gallops. Lungs--clear bilaterally, no respiratory distress, no accessory muscle use. Abdomen--normal bowel sounds and soft. Extremities--no cyanosis or clubbing. No edema. Dermatologic--normal skin turgor, normal color, no abnormal lymph nodes, no rash. Neurologic--cranial nerves II through XII grossly intact. Rheumatologic--normal range of motion. Psychiatric--normal affect. Results & Data Results & Data Vital Signs (Past 12 Hours) Vital Signs Temp Pulse Resp BP Pulse Ox O2 Del Method 10/14/24 09:47 Room Air 10/14/24 07:33 98.6 F 97 H 20 133/61 94 Room Air PG Care Time/CCT Total # of Minutes Spent Total Time Spent with Patient: Total time spent is greater than 50% in coordination of care (as documented) at patient's floor/unit and/or counseling patient: Coding Level of Care Code 74217 SUB INP/OBS CARE 2/35MIN Diagnoses Acute encephalopathy G93.40 Multiple myeloma C90.00 Confusion R41.0 Time Spent (min) 35
--- NOTE | 2024-10-14 16:27 | XRay Report ---
EXAM: Radiograph of the Chest 1 View INDICATION: Shortness of breath. TECHNIQUE: Frontal view of the chest. COMPARISON: 10/08/[address] chest 07/06/2024 FINDINGS: Lungs and pleural spaces: Stable irregular right upper lobe masslike infiltrate. No pleural effusion or pulmonary edema. No pneumothorax. Heart: Stable mild cardiomegaly. Mediastinum: Normal contour. Bones/joints: No fracture, erosion or dislocation. Soft tissues: No abnormality noted. No radiopaque foreign body noted. Vasculature: Stable ectatic aorta. Tubes, lines and devices: Left internal jugular port catheter tip terminates in the distal SVC. Upper abdomen: No abnormality noted. IMPRESSION: Stable irregular right upper lobe masslike infiltrate. ACT 112: Negative or not required by law. Electronically signed by Madalyn Fernandez 10-14-2024 4:27 PM
[2024-10-14] MEDS ORDERED: SODIUM CHLORIDE 0.9% NEBU SOLN 3 ML NEB PRN (20:17)
[2024-10-14] MEDS: GLYCOPYRROLATE 0.2 MG/ML VIAL IV PRN (20:43)
--- NOTE | 2024-10-14 22:27 | Communication Note ---
Date of Service: October 14, 2024 Was notified by RN of patient having shortness of breath and having a lot secretions. Has also been coughing up pinkish sputum. RN attempted Yankeur for suction but patient kept biting down on it and thus was not successful. Similar concern had been seen during the day and patient was placed on NC at 4 lpm. CXR done at 1600 showing stable irregular right upper lobe masslike infiltrate that had been seen in previous imaging studies. When evaluating the patient at bedside, patient found to be agitated and gurgling was heard with respirations. Vital signs at the time showing BP of 150/82, HR 132, Oxygen saturation of 95% with NC now at 2 lpm, and afebrile with axillary temperature. To exam, patient confused/disoriented, and with noted rhonchi in left lung willis and more mild in right upper lung willis, no wheezing and no respiratory distress noted. Exam otherwise unremarkable. Ordered suction catheter and notified RT since patient may need regular airway suctioning. Due to secretions noted during the day as well as increased oxygen requirement and exam findings, ordered repeat CXR due to concern for possible aspiration versus PNA versus fluid accumulation. To my interpretation, CXR showing increased airspace opacities in bilateral hilar regions. VBG also ordered and pending. Ordered saline nebulizer treatment and glycopyrrolate prn to manage secretions. Due to CXR findings, leukocytosis of ~16 in am labs, as well as increased oxygen need and delirium, will manage as pneumonia with addition of Zosyn to cover for possible anaerobes given possibility of aspiration. Will order Sputum culture, CRP and procal, and will add CBC w/ diff and CMP for the morning to monitor progression of leukocytosis noted in today's labs and renal function while on Zosyn. In addition to this, gave one-time dose of Haldol 0.5 mg IM for agitation, which is a likely cause for elevated BP readings and tachycardia. Resident Activity Tracking Resident Involvement: Resident Care Provided Care Provided: Adult [facility]
[2024-10-14] MEDS: HALOPERIDOL LACTATE 5 MG/ML 1 ML VIAL IM ONE (22:46)
[2024-10-14] MEDS: OLANZapine 10 MG/2.1 ML SDV IM ONE (22:46)
--- NOTE | 2024-10-14 23:13 | XRay Report ---
Exam(s): XR CXR 1 VIEW EXAM: XR Chest, 1 View CLINICAL HISTORY: Reason for exam: shortness of breath. TECHNIQUE: Frontal view of the chest. COMPARISON: 10/14/2024 FINDINGS: Lungs: No consolidation. No overt edema. Pleural space: No pleural effusion. No pneumothorax. Heart: Unremarkable. No cardiomegaly. Tubes, lines and devices: Port-A-Cath in place. IMPRESSION: No acute findings in the chest. Electronically signed by: Gordon Mckeon MD 10/14/24 23:12 PM
[2024-10-14 23:19] LABS: C Reactive Protein 3.94 mg/dl (0-0.5)
[2024-10-14 23:23] LABS: Base Excess VBG -4.5 mEq/L; HCO3 VBG 19 mmol/L; Oxygen Saturation VBG 86.7 %; PCO2 VBG 30 mmHg (38-50); PO2 VBG 55 mmHg; pH VBG 7.41 (7.36-7.41)
[2024-10-14] MEDS: PIPERACILLIN/TAZOBACTAM 4.5 GM/100 ML BAG IV ONE (23:28)
[2024-10-15] MEDS: PIPERACILLIN/TAZOBACTAM 4.5 GM/100 ML BAG IV SCH (05:48)
[2024-10-15 07:33] LABS: Basophils # (auto) 0.03 K/uL (0.00-0.20); Basophils % (auto) 0.2 %; Hematocrit (blood only) 41.3 % (42.0-52.0); Hemoglobin 13.6 g/dl (14.0-18.0); Immature Granulocytes # (auto) 0.05 K/uL (0.01-0.20); Immature Granulocytes % (auto) 0.4 %; Lymphocytes # (auto) 0.52 K/uL (1.20-3.40); Lymphocytes % (auto) 3.8 %; Mean Corpuscular Hgb Conc 32.9 g/dL (32.0-36.0); Mean Corpuscular Volume 94.1 fL (80.0-100.0); Mean Platelet Volume 9.8 fL (9.4-12.4); Monocytes # (auto) 1.24 K/uL (0.11-0.59); Neutrophils % (auto) 86.6 %; Platelet Count 198 K/uL (130-400); RDW Coefficient of Variation 14.3 % (11.5-14.5); RDW Standard Deviation 49.2 fL (36.4-46.3); Red Blood Count 4.39 M/uL (4.70-6.10); White Blood Count 13.84 K/ul (4.8-10.8)
[2024-10-15 07:50] LABS: Albumin Globulin Ratio 1.9 (0.9-2); BUN Creatinine Ratio 21.6 (10-20); C Reactive Protein 14.9 mg/dl (0-0.5); Calcium 9.1 mg/dl (8.6-10.3); Creatinine Clr Calc Pharmacy 56.7 ml/min; Globulin 2.1 gm/dl (2.5-4.0); Total Protein 6.1 gm/dl (6.0-8.3)
[2024-10-15] MEDS: POLYETHYLENE (MIRALAX) 17 GM PACK PO SCH (09:18)
--- NOTE | 2024-10-15 13:43 | Hospitalist Progress Note ---
Date of Service October 15, 2024 Assessment & Plan (1) Acute encephalopathy: Plan: Most likely acute on chronic encephalopathy patient has baseline dementia according to family members presents with worsening confusion and now more agitation, needing restraints no evidence of infection CT head and CT abd did not show any acute pathology Urinalysis did not suggest UTI Blood cultures, negative currently on restraints Quetiapine, melatonin at night to help him sleep, Also continue Quetiapine PRN and Ativa PRN for agitation (2) Aspiration into airway: Plan: overnight, patient had a lot of airway secretions started empirically on zosyn for suspected aspiration pna also glycoppyrolate for secretions (3) Multiple myeloma: Plan: pt gets monthly infusion of daratumumab, next infusion was supposed to be 10/11/24 at the infusion center, but per family has not gotten the last 2 months of infusion - cont acyclovir (4) Confusion: Plan Other Chronic condtions: #h/o PE - cont eliquis #Reactive airway disease - cont Breo #GERD - cont PPI Plan is for placement, no longer able to take care of patient at home. Not medically stable for discharge yet Admission and Anticipated Discharge Date Admission Date: October 10, 2024 Subjective patient seen and examined , awake and alert, but still confused,family by the bedside Review of Systems Review of Systems: unable to obtain Physical Exam Physical Exam: The patient is awake, alert and oriented 2, well developed and well nourished, normocephalic and atraumatic, lying in bed and in no acute distress. HEENT--PERRL, EOMI, mucous membranes and oropharynx mildly dry Neck--supple. No JVD. No bruits. Thyroid normal, trachea midline, no adenopathy. Heart--normal S1 and S2. No murmurs, rubs or gallops. Lungs--clear bilaterally, no respiratory distress, no accessory muscle use. Abdomen--normal bowel sounds and soft. Extremities--no cyanosis or clubbing. No edema. Dermatologic--normal skin turgor, normal color, no abnormal lymph nodes, no rash. Neurologic--cranial nerves II through XII grossly intact. Rheumatologic--normal range of motion. Psychiatric--normal affect. Results & Data Results & Data Vital Signs (Past 12 Hours) Vital Signs Temp Pulse Pulse Resp BP Pulse Ox Pulse Ox 10/15/24 09:20 10/15/24 07:37 99.0 F 109 H 20 150/78 H 96 10/15/24 01:42 93 10/15/24 01:41 98.6 F 115 H 20 136/77 92 O2 Del Method O2 Del Method O2 Flow Rate O2 Flow Rate 10/15/24 09:20 Nasal Cannula 2 10/15/24 07:37 Nasal Cannula 2.5 10/15/24 01:42 Nasal Cannula 3 10/15/24 01:41 Nasal Cannula 3 PG Care Time/CCT Total # of Minutes Spent Total Time Spent with Patient: Total time spent is greater than 50% in coordination of care (as documented) at patient's floor/unit and/or counseling patient: Coding Level of Care Code 27267 SUB INP/OBS CARE 2/35MIN Diagnoses Acute encephalopathy G93.40 Aspiration into airway T17.908A Multiple myeloma C90.00 Confusion R41.0 Time Spent (min) 35
[2024-10-15] MEDS: ARIPiprazole 5 MG TAB PO SCH (21:14)
--- NOTE | 2024-10-15 21:45 | Electrocardiogram Report ---
Test Reason : Blood Pressure : */* mmHG Vent. Rate : 121 BPM Atrial Rate : 121 BPM P-R Int : 140 ms QRS Dur : 102 ms QT Int : 322 ms P-R-T Axes : 53 -62 97 degrees QTcB Int : 457 ms Sinus tachycardia with Premature atrial complexes Left anterior fascicular block Left ventricular hypertrophy with repolarization abnormality Abnormal ECG When compared with ECG of 12-Oct-2024 15:37, Vent. rate has increased by 44 bpm T wave inversion now evident in Lateral leads Premature atrial complexes are now Present Premature ventricular complexes are no longer Present Confirmed by Sp Dhaliwal ([id number]) on 10/15/2024 9:45:07 PM Referred By: REFERRED SELF Confirmed By: Sp Dhaliwal
[2024-10-16 08:40] LABS: Hematocrit (blood only) 38.4 % (42.0-52.0); Hemoglobin 12.6 g/dl (14.0-18.0); Mean Corpuscular Hgb Conc 32.8 g/dL (32.0-36.0); Mean Corpuscular Volume 94.3 fL (80.0-100.0); Mean Platelet Volume 9.8 fL (9.4-12.4); Platelet Count 194 K/uL (130-400); RDW Coefficient of Variation 14.3 % (11.5-14.5); Red Blood Count 4.07 M/uL (4.70-6.10); White Blood Count 9.52 K/ul (4.8-10.8)
[2024-10-16 08:52] LABS: Anion Gap 7 (3-11); BUN Creatinine Ratio 22.7 (10-20); Blood Urea Nitrogen 32 mg/dl (6-23); Calcium 9.4 mg/dl (8.6-10.3); Carbon Dioxide 26 mmol/L (21-32); Chloride 116 mmol/L (98-107); Creatinine Clr Calc Pharmacy 50.2 ml/min; Glucose 112 mg/dl (70-99(Fasting)); Sodium 149 mmol/L (136-145)
[2024-10-16] MEDS: D5W AND NSS 1,000 ML IV SCH (11:22)
--- NOTE | 2024-10-16 12:28 | Hospitalist Progress Note ---
Date of Service October 16, 2024 Assessment & Plan (1) Acute encephalopathy: Plan: Most likely acute on chronic encephalopathy patient has baseline dementia according to family members presents with worsening confusion and now more agitation, needing restraints no evidence of infection CT head and CT abd did not show any acute pathology Urinalysis did not suggest UTI Blood cultures, negative currently on restraints Quetiapine, melatonin, Abilify at night to help him sleep, Also continue Quetiapine PRN and Ativan PRN for agitation (2) Aspiration into airway: Plan: overnight, patient had a lot of airway secretions started empirically on zosyn for suspected aspiration pna also glycoppyrolate for secretions (3) ZAMZAM (acute kidney injury): Plan: Likely pre renal from dehydration and poor PO intake will start gentle hydration with IV saline recheck bmp (4) Hypernatremia: Plan: from poor intake and dehydration Sodium 149 today will start dextrose saline (5) Multiple myeloma: Plan: pt gets monthly infusion of daratumumab, next infusion was supposed to be 10/11/24 at the infusion center, but per family has not gotten the last 2 months of infusion - cont acyclovir (6) Confusion: Plan Other Chronic condtions: #h/o PE - cont eliquis #Reactive airway disease - cont Breo #GERD - cont PPI Plan is for placement, no longer able to take care of patient at home. Not medically stable for discharge yet Admission and Anticipated Discharge Date Admission Date: October 10, 2024 Subjective patient seen and examined , awake and alert, but still confused,family by the bedside Review of Systems Review of Systems: unable to obtain Physical Exam Physical Exam: The patient is awake, alert and oriented 2, well developed and well nourished, normocephalic and atraumatic, lying in bed and in no acute distress. HEENT--PERRL, EOMI, mucous membranes and oropharynx mildly dry Neck--supple. No JVD. No bruits. Thyroid normal, trachea midline, no adenopathy. Heart--normal S1 and S2. No murmurs, rubs or gallops. Lungs--clear bilaterally, no respiratory distress, no accessory muscle use. Abdomen--normal bowel sounds and soft. Extremities--no cyanosis or clubbing. No edema. Dermatologic--normal skin turgor, normal color, no abnormal lymph nodes, no rash. Neurologic--cranial nerves II through XII grossly intact. Rheumatologic--normal range of motion. Psychiatric--normal affect. Results & Data Results & Data Vital Signs (Past 12 Hours) Vital Signs Temp Pulse Resp BP Pulse Ox O2 Del Method 10/16/24 07:43 98.6 F 92 H 18 135/72 91 Room Air PG Care Time/CCT Total # of Minutes Spent Total Time Spent with Patient: Total time spent is greater than 50% in coordination of care (as documented) at patient's floor/unit and/or counseling patient: Coding Level of Care Code 59520 SUB INP/OBS CARE 2/35MIN Diagnoses Acute encephalopathy G93.40 Aspiration into airway T17.908A ZAMZAM (acute kidney injury) N17.9 Hypernatremia E87.0 Multiple myeloma C90.00 Confusion R41.0 Time Spent (min) 35
[2024-10-16] MEDS: LORazepam 2 MG/1 ML VIAL IV PRN (23:08)
--- NOTE | 2024-10-17 12:56 | Hospitalist Progress Note ---
Date of Service October 17, 2024 Assessment & Plan (1) Acute encephalopathy: Plan: Most likely acute on chronic encephalopathy patient has baseline dementia according to family members presents with worsening confusion and now more agitation, needing restraints no evidence of infection CT head and CT abd did not show any acute pathology Urinalysis did not suggest UTI Blood cultures, negative, sputum cultures yielded normal deep Quetiapine, melatonin, Abilify at night to help him sleep, Also continue Quetiapine PRN and Ativan PRN for agitation (2) Aspiration into airway: Plan: patient had a lot of airway secretions started empirically on zosyn for suspected aspiration pna also glycoppyrolate for secretions secretions a lot better today (3) ZAMZAM (acute kidney injury): Plan: Likely pre renal from dehydration and poor PO intake will start gentle hydration with IV saline recheck bmp, pending labs today (4) Hypernatremia: Plan: from poor intake and dehydration Sodium 149 today will start dextrose saline bmp pending today (5) Multiple myeloma: Plan: pt gets monthly infusion of daratumumab, next infusion was supposed to be 10/11/24 at the infusion center, but per family has not gotten the last 2 months of infusion - cont acyclovir (6) Confusion: Plan Other Chronic condtions: #h/o PE - cont eliquis #Reactive airway disease - cont Breo #GERD - cont PPI Plan is for placement, no longer able to take care of patient at home. Not medically stable for discharge yet Admission and Anticipated Discharge Date Admission Date: October 10, 2024 Subjective patient seen and examined , awake and alert, but still confused, minimally combative today Review of Systems Review of Systems: unable to obtain Physical Exam Physical Exam: The patient is awake, alert and oriented 2, well developed and well nourished, combative HEENT--PERRL, EOMI, mucous membranes and oropharynx mildly dry Neck--supple. No JVD. No bruits. Thyroid normal, trachea midline, no adenopathy. Heart--normal S1 and S2. No murmurs, rubs or gallops. Lungs--clear bilaterally, no respiratory distress, no accessory muscle use. Abdomen--normal bowel sounds and soft. Extremities--no cyanosis or clubbing. No edema. Dermatologic--normal skin turgor, normal color, no abnormal lymph nodes, no rash. Neurologic--cranial nerves II through XII grossly intact. Rheumatologic--normal range of motion. Psychiatric--agitated Results & Data Results & Data Vital Signs (Past 12 Hours) Vital Signs Temp Pulse Resp BP Pulse Ox O2 Del Method 10/17/24 07:12 98.1 F 85 16 162/79 H 94 Room Air 10/17/24 03:05 98.2 F 79 24 120/107 H 92 Room Air PG Care Time/CCT Total # of Minutes Spent Total Time Spent with Patient: Total time spent is greater than 50% in coordination of care (as documented) at patient's floor/unit and/or counseling patient: Coding Level of Care Code 38798 SUB INP/OBS CARE 2/35MIN Diagnoses Acute encephalopathy G93.40 Aspiration into airway T17.908A ZAMZAM (acute kidney injury) N17.9 Hypernatremia E87.0 Multiple myeloma C90.00 Confusion R41.0 Time Spent (min) 35
[2024-10-17 13:02] LABS: Anion Gap 3 (3-11); BUN Creatinine Ratio 21.9 (10-20); Blood Urea Nitrogen 25 mg/dl (6-23); Calcium 9.1 mg/dl (8.6-10.3); Carbon Dioxide 29 mmol/L (21-32); Chloride 115 mmol/L (98-107); Creatinine Clr Calc Pharmacy 62.1 ml/min; Glucose 148 mg/dl (70-99(Fasting)); Sodium 147 mmol/L (136-145)
[2024-10-17] MEDS: D5W AND NSS 1,000 ML IV SCH (15:51)
[2024-10-18 09:36] LABS: Hematocrit (blood only) 40.2 % (42.0-52.0); Hemoglobin 12.8 g/dl (14.0-18.0); Mean Corpuscular Hemoglobin 31.1 pg (25.0-34.0); Mean Corpuscular Hgb Conc 31.8 g/dL (32.0-36.0); Mean Corpuscular Volume 97.8 fL (80.0-100.0); Mean Platelet Volume 10.2 fL (9.4-12.4); Platelet Count 182 K/uL (130-400); RDW Coefficient of Variation 14.1 % (11.5-14.5); RDW Standard Deviation 50.7 fL (36.4-46.3); Red Blood Count 4.11 M/uL (4.70-6.10); White Blood Count 6.08 K/ul (4.8-10.8)
[2024-10-18 09:59] LABS: BUN Creatinine Ratio 14.3 (10-20); C Reactive Protein 3.2 mg/dl (0-0.5); Calcium 8.7 mg/dl (8.6-10.3); Creatinine Clr Calc Pharmacy 72.3 ml/min; Potassium 3.7 mmol/L (3.5-5.1)
--- NOTE | 2024-10-18 10:55 | Hospitalist Progress Note ---
Date of Service October 18, 2024 Assessment & Plan (1) Acute encephalopathy: Plan: Most likely acute on chronic encephalopathy patient has baseline dementia according to family members presents with worsening confusion and now more agitation, needing restraints no evidence of infection CT head and CT abd did not show any acute pathology Urinalysis did not suggest UTI Blood cultures, negative, sputum cultures yielded normal deep Quetiapine, melatonin, Abilify at night to help him sleep, Also continue Quetiapine PRN and Ativan PRN for agitation (2) Hypernatremia: Plan: from poor intake and dehydration Sodium 148 today will start dextrose water check bmp tomorrow (3) Aspiration into airway: Plan: patient had a lot of airway secretions started empirically on zosyn for suspected aspiration pna also glycoppyrolate for secretions secretions a lot better today (4) ZAMZAM (acute kidney injury): Plan: Likely pre renal from dehydration and poor PO intake will start gentle hydration with IV saline recheck bmp, pending labs today (5) Multiple myeloma: Plan: pt gets monthly infusion of daratumumab, next infusion was supposed to be 10/11/24 at the infusion center, but per family has not gotten the last 2 months of infusion - cont acyclovir (6) Confusion: Plan Other Chronic condtions: #h/o PE - cont eliquis #Reactive airway disease - cont Breo #GERD - cont PPI Plan is for placement, no longer able to take care of patient at home. Not medically stable for discharge yet Admission and Anticipated Discharge Date Admission Date: October 10, 2024 Subjective patient seen and examined , awake and alert, but still confused, minimally combative today Review of Systems Review of Systems: unable to obtain Physical Exam Physical Exam: The patient is awake, alert and oriented 2, well developed and well nourished, combative HEENT--PERRL, EOMI, mucous membranes and oropharynx mildly dry Neck--supple. No JVD. No bruits. Thyroid normal, trachea midline, no adenopathy. Heart--normal S1 and S2. No murmurs, rubs or gallops. Lungs--clear bilaterally, no respiratory distress, no accessory muscle use. Abdomen--normal bowel sounds and soft. Extremities--no cyanosis or clubbing. No edema. Dermatologic--normal skin turgor, normal color, no abnormal lymph nodes, no rash. Neurologic--cranial nerves II through XII grossly intact. Rheumatologic--normal range of motion. Psychiatric--agitated Results & Data Results & Data Vital Signs (Past 12 Hours) Vital Signs Temp Pulse Resp BP Pulse Ox O2 Del Method 10/18/24 08:45 Room Air 10/18/24 07:17 Room Air 10/18/24 07:16 125/78 10/18/24 07:02 97.3 F L 80 20 92/82 L 90 Room Air PG Care Time/CCT Total # of Minutes Spent Total Time Spent with Patient: Total time spent is greater than 50% in coordination of care (as documented) at patient's floor/unit and/or counseling patient: Coding Level of Care Code 59608 SUB INP/OBS CARE 2/35MIN Diagnoses Acute encephalopathy G93.40 Hypernatremia E87.0 Aspiration into airway T17.908A ZAMZAM (acute kidney injury) N17.9 Multiple myeloma C90.00 Confusion R41.0 Time Spent (min) 35
[2024-10-18] MEDS: DEXTROSE 5% 1,000 ML IV SCH (10:56)
[2024-10-19 08:01] LABS: Hemoglobin 13.1 g/dl (14.0-18.0); Mean Corpuscular Hemoglobin 30.6 pg (25.0-34.0); Mean Corpuscular Hgb Conc 32.8 g/dL (32.0-36.0); Mean Corpuscular Volume 93.5 fL (80.0-100.0); Mean Platelet Volume 9.8 fL (9.4-12.4); Platelet Count 197 K/uL (130-400); RDW Coefficient of Variation 13.7 % (11.5-14.5); RDW Standard Deviation 46.7 fL (36.4-46.3); Red Blood Count 4.28 M/uL (4.70-6.10); White Blood Count 7.33 K/ul (4.8-10.8)
[2024-10-19 08:15] LABS: BUN Creatinine Ratio 12.3 (10-20); Calcium 8.7 mg/dl (8.6-10.3); Creatinine Clr Calc Pharmacy 87.4 ml/min; Potassium 3.5 mmol/L (3.5-5.1)
--- NOTE | 2024-10-19 10:30 | Hospitalist Progress Note ---
Date of Service October 19, 2024 Assessment & Plan (1) Acute encephalopathy: Plan: Most likely acute on chronic encephalopathy patient has baseline dementia according to family members presents to the hospital with worsening confusion and agitation, needing restraints no evidence of infection CT head and CT abd did not show any acute pathology Urinalysis did not suggest UTI Blood cultures, negative, sputum cultures yielded normal deep Quetiapine, melatonin, Abilify at night to help him sleep, Also continue Quetiapine PRN and Ativan PRN for agitation Today, he is still encephalopathic, but not as combative I will start tapering down his meds, starting with Seroquel Hs, will taper down to 25mg from 50mg will encourage to keep the window blinds open in the morning and afternoon Encourage family members to visit to help in re orientation (2) Hypernatremia: Plan: resolved after dextrose water infusion (3) Aspiration into airway: Plan: patient had a lot of airway secretions started empirically on zosyn for suspected aspiration pna also glycoppyrolate for secretions secretions a lot better today (4) ZAMZAM (acute kidney injury): Plan: Likely pre renal from dehydration and poor PO intake Resolved (5) Multiple myeloma: Plan: pt gets monthly infusion of daratumumab, next infusion was supposed to be 10/11/24 at the infusion center, but per family has not gotten the last 2 months of infusion - cont acyclovir (6) Confusion: Plan Other Chronic condtions: #h/o PE - cont eliquis #Reactive airway disease - cont Breo #GERD - cont PPI Plan is for placement, no longer able to take care of patient at home. Not medically stable for discharge yet, he is still encephalopathic Admission and Anticipated Discharge Date Admission Date: October 10, 2024 Subjective patient seen and examined , awake and alert, but still confused, minimally combative today Review of Systems Review of Systems: unable to obtain Physical Exam Physical Exam: The patient is awake, alert and oriented 2, well developed and well nourished, combative HEENT--PERRL, EOMI, mucous membranes and oropharynx mildly dry Neck--supple. No JVD. No bruits. Thyroid normal, trachea midline, no adenopathy. Heart--normal S1 and S2. No murmurs, rubs or gallops. Lungs--clear bilaterally, no respiratory distress, no accessory muscle use. Abdomen--normal bowel sounds and soft. Extremities--no cyanosis or clubbing. No edema. Dermatologic--normal skin turgor, normal color, no abnormal lymph nodes, no rash. Neurologic--cranial nerves II through XII grossly intact. Rheumatologic--normal range of motion. Psychiatric--agitated Results & Data Results & Data Vital Signs (Past 12 Hours) Vital Signs Temp Pulse Resp BP Pulse Ox O2 Del Method 10/19/24 07:04 97.7 F 73 16 168/77 H 93 Room Air PG Care Time/CCT Total # of Minutes Spent Total Time Spent with Patient: Total time spent is greater than 50% in coordination of care (as documented) at patient's floor/unit and/or counseling patient: Coding Level of Care Code 45361 SUB INP/OBS CARE 2/35MIN Diagnoses Acute encephalopathy G93.40 Hypernatremia E87.0 Aspiration into airway T17.908A ZAMZAM (acute kidney injury) N17.9 Multiple myeloma C90.00 Confusion R41.0 Time Spent (min) 35
[2024-10-19] MEDS: ACETAMINOPHEN 500 MG TAB PO PRN (20:51)
[2024-10-19] MEDS: QUEtiapine FUMARATE 25 MG TABLET PO SCH (20:52)
--- NOTE | 2024-10-20 09:18 | Hospitalist Progress Note ---
Date of Service October 20, 2024 Assessment & Plan (1) Acute encephalopathy: (2) Hypernatremia: (3) Aspiration into airway: (4) ZAMZAM (acute kidney injury): (5) Multiple myeloma: (6) Confusion: Plan #Acute encephalopathy: - Most likely acute on chronic encephalopathy - patient has baseline dementia according to family members - presents to the hospital with worsening confusion and agitation, needing restraints - no evidence of infection - CT head and CT abd did not show any acute pathology - Urinalysis did not suggest UTI - Blood cultures, negative, sputum cultures yielded normal deep - adjust meds to quetiapine 50mg nightly, d/c abilify / prn olanzapine, cont prn quetiapine - cont melatonin - avoid benzos at this time - family members present with pt to help with re-orientation #Hypernatremia: - resolved after dextrose water infusion #Aspiration into airway: resolved - patient had a lot of airway secretions - started empirically on zosyn for suspected aspiration pna - also glycoppyrolate for secretions #ZAMZAM (acute kidney injury): - Likely pre renal from dehydration and poor PO intake - Resolved #Multiple myeloma: - pt gets monthly infusion of daratumumab, next infusion was supposed to be 10/11/24 at the infusion center, but per family has not gotten the last 2 months of infusion - cont acyclovir #h/o PE - cont eliquis #Reactive airway disease - cont Breo #GERD - cont PPI Plan is for placement, no longer able to take care of patient at home. Not medically stable for discharge yet, he is still encephalopathic Admission and Anticipated Discharge Date Admission Date: October 10, 2024 Subjective No acute events overnight Currently confused but not combative Review of Systems Review of Systems: Unable to perform comprehensive ROS due to mentation Physical Exam Physical Exam: Gen: NAD HEENT: NC/AT, MMM Lungs: CTAB anteriorly CVS: s1s2nl, RRR Abd: soft, NT, nl BS Ext: no edema, moving all extremities evenly Results & Data Results & Data Vital Signs (Past 12 Hours) Vital Signs Temp Pulse Resp BP Pulse Ox O2 Del Method 10/20/24 07:09 36.4 C L 78 16 169/78 H 95 Room Air PG Care Time/CCT Total # of Minutes Spent Total Time Spent with Patient: Total time spent is greater than 50% in coordination of care (as documented) at patient's floor/unit and/or counseling patient: Coding Level of Care Code 53264 SUB INP/OBS CARE 350MIN Diagnoses Acute encephalopathy G93.40 Hypernatremia E87.0 Aspiration into airway T17.908A ZAMZAM (acute kidney injury) N17.9 Multiple myeloma C90.00 Confusion R41.0
[2024-10-20] MEDS: DOCUSATE SODIUM/SENNA 50/8.6MG TAB PO PRN (09:37)
[2024-10-20] MEDS: bisacodyL 10 MG SUPP PR ONE (16:11)
[2024-10-20] MEDS: QUEtiapine FUMARATE 25 MG TABLET PO SCH (20:16)
[2024-10-21 08:06] LABS: BUN Creatinine Ratio 17.4 (10-20); Magnesium 1.9 mg/dl (1.7-2.4); Phosphorus 2.5 mg/dl (2.5-4.9); Potassium 3.8 mmol/L (3.5-5.1)
--- NOTE | 2024-10-21 08:46 | Hospitalist Progress Note ---
Date of Service October 21, 2024 Assessment & Plan (1) Acute encephalopathy: (2) Hypernatremia: (3) Aspiration into airway: (4) ZAMZAM (acute kidney injury): (5) Multiple myeloma: (6) Confusion: Plan #Acute encephalopathy: resolving - Most likely acute on chronic encephalopathy - patient has baseline dementia according to family members - presents to the hospital with worsening confusion and agitation, needing restraints - no evidence of infection - CT head and CT abd did not show any acute pathology - Urinalysis did not suggest UTI - Blood cultures, negative, sputum cultures yielded normal deep - adjust meds to quetiapine 50mg nightly, d/c abilify / prn olanzapine, cont prn quetiapine - cont melatonin - avoid benzos at this time - family members present with pt to help with re-orientation - discontinue sitter on 10/21/24 #Hypernatremia: - resolved after dextrose water infusion - cont oral free water intake #Aspiration into airway: resolved - patient had a lot of airway secretions - started empirically on zosyn for suspected aspiration pna - also glycoppyrolate for secretions #ZAMZAM (acute kidney injury): - Likely pre renal from dehydration and poor PO intake - Resolved #Multiple myeloma: - pt gets monthly infusion of daratumumab, next infusion was supposed to be 10/11/24 at the infusion center, but per family has not gotten the last 2 months of infusion - cont acyclovir #h/o PE - cont eliquis #Reactive airway disease - cont Breo #GERD - cont PPI #Dispo - off of sitter for 24 hrs - rpt PT / OT eval needed - ins auth for [facility] needed to be completed next week - potential d/c early next week 10/21: updated Clarence (dgtr): [phone] Admission and Anticipated Discharge Date Admission Date: October 10, 2024 Subjective No acute events overnight Mentation improved compared to yesterday Review of Systems Review of Systems: Comprehensive ROS neg Physical Exam Physical Exam: Gen: NAD HEENT: NC/AT, MMM Lungs: CTAB anteriorly CVS: s1s2nl, RRR Abd: soft, NT, nl BS Ext: no edema, moving all extremities evenly Results & Data Results & Data Vital Signs (Past 12 Hours) Vital Signs Temp Pulse Resp BP Pulse Ox O2 Del Method 10/21/24 06:56 36.5 C 70 17 113/68 91 Room Air PG Care Time/CCT Total # of Minutes Spent Total Time Spent with Patient: Total time spent is greater than 50% in coordination of care (as documented) at patient's floor/unit and/or counseling patient: Coding Level of Care Code 95030 SUB INP/OBS CARE 2/35MIN Diagnoses Acute encephalopathy G93.40 Hypernatremia E87.0 Aspiration into airway T17.908A ZAMZAM (acute kidney injury) N17.9 Multiple myeloma C90.00 Confusion R41.0
[2024-10-22 06:54] LABS: Hematocrit (blood only) 38.5 % (42.0-52.0); Hemoglobin 12.9 g/dl (14.0-18.0); Mean Corpuscular Hemoglobin 31.4 pg (25.0-34.0); Mean Corpuscular Hgb Conc 33.5 g/dL (32.0-36.0); Mean Corpuscular Volume 93.7 fL (80.0-100.0); Mean Platelet Volume 9.9 fL (9.4-12.4); Platelet Count 215 K/uL (130-400); RDW Standard Deviation 48.5 fL (36.4-46.3); Red Blood Count 4.11 M/uL (4.70-6.10); White Blood Count 6.36 K/ul (4.8-10.8)
[2024-10-22 07:11] LABS: BUN Creatinine Ratio 24.5 (10-20); Calcium 9.1 mg/dl (8.6-10.3); Creatinine Clr Calc Pharmacy 75.3 ml/min; Magnesium 1.8 mg/dl (1.7-2.4); Potassium 3.7 mmol/L (3.5-5.1)
--- NOTE | 2024-10-22 15:23 | Hospitalist Progress Note ---
Date of Service October 22, 2024 Assessment & Plan (1) Acute encephalopathy: (2) Hypernatremia: (3) Aspiration into airway: (4) ZAMAZM (acute kidney injury): (5) Multiple myeloma: (6) Confusion: Plan #Acute encephalopathy: resolving - Most likely acute on chronic encephalopathy - patient has baseline dementia according to family members - presents to the hospital with worsening confusion and agitation, needing restraints - no evidence of infection - CT head and CT abd did not show any acute pathology - Urinalysis did not suggest UTI - Blood cultures, negative, sputum cultures yielded normal deep - adjust meds to quetiapine 50mg nightly, will add low dose quetiapine in the morning, cont prn quetiapine - cont melatonin - avoid benzos at this time - family members present with pt to help with re-orientation - discontinued sitter on 10/21/24 #Hypernatremia: - resolved after dextrose water infusion - cont oral free water intake #Aspiration into airway: resolved - patient had a lot of airway secretions - s/p zosyn for suspected aspiration pna - also glycoppyrolate for secretions #ZAMZAM (acute kidney injury): - Likely pre renal from dehydration and poor PO intake - Resolved #Multiple myeloma: - pt gets monthly infusion of daratumumab, next infusion was supposed to be 10/11/24 at the infusion center, but per family has not gotten the last 2 months of infusion - cont acyclovir #h/o PE - cont eliquis #Reactive airway disease - cont Breo #GERD - cont PPI #Dispo - off of sitter for 24 hrs - rpt PT / OT eval needed - ins auth for [facility] needed to be completed next week - potential d/c early next week 10/21: updated Dorea (tr): [phone] Admission and Anticipated Discharge Date Admission Date: October 10, 2024 Subjective No acute events overnight Mentation is better in the morning. Does have more confusion in the afternoon. Review of Systems Review of Systems: Comprehensive ROS neg Physical Exam Physical Exam: Gen: NAD HEENT: NC/AT, MMM Lungs: CTAB anteriorly CVS: s1s2nl, RRR Abd: soft, NT, nl BS Ext: no edema, moving all extremities evenly Results & Data Results & Data Vital Signs (Past 12 Hours) Vital Signs Temp Pulse Resp BP Pulse Ox O2 Del Method 10/22/24 14:45 36.4 C L 71 18 122/67 92 Room Air 10/22/24 07:45 Room Air 10/22/24 07:25 36.3 C L 73 18 122/69 93 Room Air PG Care Time/CCT Total # of Minutes Spent Total Time Spent with Patient: Total time spent is greater than 50% in coordination of care (as documented) at patient's floor/unit and/or counseling patient: Coding Level of Care Code 51654 SUB INP/OBS CARE 2/35MIN Diagnoses Acute encephalopathy G93.40 Hypernatremia E87.0 Aspiration into airway T17.908A ZAMZAM (acute kidney injury) N17.9 Multiple myeloma C90.00 Confusion R41.0
[2024-10-23] MEDS: QUEtiapine FUMARATE 25 MG TABLET PO SCH (08:07)
[2024-10-23] MEDS: PANTOprazole 40 MG TAB PO SCH (08:09)
--- NOTE | 2024-10-23 17:14 | Hospitalist Progress Note ---
Date of Service October 23, 2024 Assessment & Plan (1) Acute encephalopathy: (2) Hypernatremia: (3) Aspiration into airway: (4) ZAMZAM (acute kidney injury): (5) Multiple myeloma: (6) Confusion: Plan #Acute encephalopathy: resolving - Most likely acute on chronic encephalopathy - patient has baseline dementia according to family members - presents to the hospital with worsening confusion and agitation, needing restraints - no evidence of infection - CT head and CT abd did not show any acute pathology - Urinalysis did not suggest UTI - Blood cultures, negative, sputum cultures yielded normal deep - adjust meds to quetiapine 50mg nightly, will add low dose quetiapine in the morning, cont prn quetiapine - cont melatonin - avoid benzos at this time - family members present with pt to help with re-orientation - discontinued sitter on 10/21/24 #Hypernatremia: - resolved after dextrose water infusion - cont oral free water intake #Aspiration into airway: resolved - patient had a lot of airway secretions - s/p zosyn for suspected aspiration pna - also glycoppyrolate for secretions #ZAMZAM (acute kidney injury): - Likely pre renal from dehydration and poor PO intake - Resolved #Multiple myeloma: - pt gets monthly infusion of daratumumab, next infusion was supposed to be 10/11/24 at the infusion center, but per family has not gotten the last 2 months of infusion - cont acyclovir #h/o PE - cont eliquis #Reactive airway disease - cont Breo #GERD - cont PPI #Dispo - off of sitter -PT and OT reevaluated Case management working with [facility] to see when they can accept him back. - ins auth for [facility] needed to be completed next week - potential d/c this week 10/21: updated Dorea (dgtr): [phone] Admission and Anticipated Discharge Date Admission Date: October 10, 2024 Subjective Patient was seen and examined at 10:30 AM. He denies chest pain or shortness of breath. Review of Systems Review of Systems: All systems reviewed & are unremarkable except as noted in Subjective Physical Exam Physical Exam: General: Awake, conversant. Pleasantly confused Heart: S1, S2/regular rate and rhythm, no murmur rubs or gallops Lungs: Clear to auscultation bilaterally. Normal effort Abdomen: Soft/nontender/nondistended. No hepatosplenomegaly Extremities: No clubbing/cyanosis. No edema Behavior: Appropriate, cooperative Results & Data Results & Data Vital Signs (Past 12 Hours) Vital Signs Temp Pulse Resp BP Pulse Ox O2 Del Method 10/23/24 14:18 36.6 C 80 16 107/63 95 Room Air 10/23/24 07:00 37.0 C 66 16 173/76 H 96 Room Air PG Care Time/CCT Total # of Minutes Spent Total Time Spent with Patient: Total time spent is greater than 50% in coordination of care (as documented) at patient's floor/unit and/or counseling patient: Coding Level of Care Code 38039 SUB INP/OBS CARE 2/35MIN Diagnoses Acute encephalopathy G93.40 Hypernatremia E87.0 Aspiration into airway T17.908A ZAMZAM (acute kidney injury) N17.9 Multiple myeloma C90.00 Confusion R41.0
--- NOTE | 2024-10-24 17:25 | Hospitalist Progress Note ---
Date of Service October 24, 2024 Assessment & Plan (1) Acute encephalopathy: (2) Hypernatremia: (3) Aspiration into airway: (4) ZAMZAM (acute kidney injury): (5) Multiple myeloma: (6) Confusion: Plan #Acute encephalopathy: resolving - Most likely acute on chronic encephalopathy - patient has baseline dementia according to family members - presents to the hospital with worsening confusion and agitation, needing restraints - no evidence of infection - CT head and CT abd did not show any acute pathology - Urinalysis did not suggest UTI - Blood cultures, negative, sputum cultures yielded normal deep - adjust meds to quetiapine 50mg nightly, will add low dose quetiapine in the morning, cont prn quetiapine - cont melatonin - avoid benzos at this time - family members present with pt to help with re-orientation - discontinued sitter on 10/21/24 #Hypernatremia: - resolved after dextrose water infusion - cont oral free water intake #Aspiration into airway: resolved - patient had a lot of airway secretions - s/p zosyn for suspected aspiration pna - also glycoppyrolate for secretions #ZAMZAM (acute kidney injury): - Likely pre renal from dehydration and poor PO intake - Resolved #Multiple myeloma: - pt gets monthly infusion of daratumumab, next infusion was supposed to be 10/11/24 at the infusion center, but per family has not gotten the last 2 months of infusion - cont acyclovir #h/o PE - cont eliquis #Reactive airway disease - cont Breo #GERD - cont PPI #Dispo - off of sitter -PT and OT reevaluated Case management working with [facility] to see when they can accept him back. - ins auth for [facility] needed to be completed this week - potential d/c this week 10/21: updated Dorea (dgtr): [phone] Admission and Anticipated Discharge Date Admission Date: October 10, 2024 Subjective Patient was seen and examined at 11:25 AM. He denies chest pain or shortness of breath. Review of Systems Review of Systems: All systems reviewed & are unremarkable except as noted in Subjective Physical Exam Physical Exam: General: Awake, conversant. Pleasantly confused Heart: S1, S2/regular rate and rhythm, no murmur rubs or gallops Lungs: Clear to auscultation bilaterally. Normal effort Abdomen: Soft/nontender/nondistended. No hepatosplenomegaly Extremities: No clubbing/cyanosis. No edema Behavior: Appropriate, cooperative Results & Data Results & Data Vital Signs (Past 12 Hours) Vital Signs Temp Pulse Resp BP Pulse Ox O2 Del Method 10/24/24 14:11 36.6 C 84 16 95/60 L 94 Room Air 10/24/24 07:18 36.7 C 76 16 147/76 H 96 Room Air PG Care Time/CCT Total # of Minutes Spent Total Time Spent with Patient: Total time spent is greater than 50% in coordination of care (as documented) at patient's floor/unit and/or counseling patient: Coding Level of Care Code 31152 SUB INP/OBS CARE 2/35MIN Diagnoses Acute encephalopathy G93.40 Hypernatremia E87.0 Aspiration into airway T17.908A ZAMZAM (acute kidney injury) N17.9 Multiple myeloma C90.00 Confusion R41.0
--- NOTE | 2024-10-25 16:01 | Hospitalist Progress Note ---
Date of Service October 25, 2024 Assessment & Plan (1) Acute encephalopathy: (2) Hypernatremia: (3) Aspiration into airway: (4) ZAMZAM (acute kidney injury): (5) Multiple myeloma: (6) Confusion: Plan #Acute encephalopathy: resolving - Most likely acute on chronic encephalopathy - patient has baseline dementia according to family members - presents to the hospital with worsening confusion and agitation, needing restraints - no evidence of infection - CT head and CT abd did not show any acute pathology - Urinalysis did not suggest UTI - Blood cultures, negative, sputum cultures yielded normal deep - adjust meds to quetiapine 50mg nightly, will add low dose quetiapine in the morning, cont prn quetiapine - cont melatonin - avoid benzos at this time - family members present with pt to help with re-orientation - discontinued sitter on 10/21/24 #Hypernatremia: - resolved after dextrose water infusion - cont oral free water intake #Aspiration into airway: resolved - patient had a lot of airway secretions - s/p zosyn for suspected aspiration pna - also glycoppyrolate for secretions #ZAMZAM (acute kidney injury): - Likely pre renal from dehydration and poor PO intake - Resolved #Multiple myeloma: - pt gets monthly infusion of daratumumab, next infusion was supposed to be 10/11/24 at the infusion center, but per family has not gotten the last 2 months of infusion - cont acyclovir #h/o PE - cont eliquis #Reactive airway disease - cont Breo #GERD - cont PPI #Dispo - off of sitter -PT and OT reevaluated Case management working with [facility]. They will accept the patient. Now awaiting insurance Auth - potential d/c this week 10/21: updated Clarence ([facility]): [phone] Admission and Anticipated Discharge Date Admission Date: October 10, 2024 Subjective Patient was seen and examined at 11:10 AM. He did not report any new complaints. He feels well in general. Denies chest pain or shortness of breath Review of Systems Review of Systems: All systems reviewed & are unremarkable except as noted in Subjective Physical Exam Physical Exam: General: Awake, conversant. Pleasantly confused Heart: S1, S2/regular rate and rhythm, no murmur rubs or gallops Lungs: Clear to auscultation bilaterally. Normal effort Abdomen: Soft/nontender/nondistended. No hepatosplenomegaly Extremities: No clubbing/cyanosis. No edema Behavior: Appropriate, cooperative Results & Data Results & Data Vital Signs (Past 12 Hours) Vital Signs Temp Pulse Resp BP Pulse Ox O2 Del Method 10/25/24 15:03 37 C 84 20 144/73 H 95 Room Air 10/25/24 07:48 Room Air 10/25/24 07:18 36.5 C 75 20 116/68 93 Room Air PG Care Time/CCT Total # of Minutes Spent Total Time Spent with Patient: Total time spent is greater than 50% in coordination of care (as documented) at patient's floor/unit and/or counseling patient: Coding Level of Care Code 93674 SUB INP/OBS CARE 2/35MIN Diagnoses Acute encephalopathy G93.40 Hypernatremia E87.0 Aspiration into airway T17.908A ZAMZAM (acute kidney injury) N17.9 Multiple myeloma C90.00 Confusion R41.0
--- NOTE | 2024-10-26 15:24 | Hospitalist Progress Note ---
Date of Service October 26, 2024 Assessment & Plan (1) Acute encephalopathy: (2) Hypernatremia: (3) Aspiration into airway: (4) ZAMZAM (acute kidney injury): (5) Multiple myeloma: (6) Confusion: Plan #Acute encephalopathy: resolving - Most likely acute on chronic encephalopathy - patient has baseline dementia according to family members - presents to the hospital with worsening confusion and agitation, needing restraints - no evidence of infection - CT head and CT abd did not show any acute pathology - Urinalysis did not suggest UTI - Blood cultures, negative, sputum cultures yielded normal deep - adjust meds to quetiapine 50mg nightly, will add low dose quetiapine in the morning, cont prn quetiapine - cont melatonin - avoid benzos at this time - family members present with pt to help with re-orientation - discontinued sitter on 10/21/24 #Hypernatremia: - resolved after dextrose water infusion - cont oral free water intake #Aspiration into airway: resolved - patient had a lot of airway secretions - s/p zosyn for suspected aspiration pna - also glycoppyrolate for secretions #ZAMZAM (acute kidney injury): - Likely pre renal from dehydration and poor PO intake - Resolved #Multiple myeloma: - pt gets monthly infusion of daratumumab, next infusion was supposed to be 10/11/24 at the infusion center, but per family has not gotten the last 2 months of infusion - cont acyclovir #h/o PE - cont eliquis #Reactive airway disease - cont Breo #GERD - cont PPI #Dispo - off of sitter -PT and OT reevaluated Case management working with [facility]. They will accept the patient. Shortness mobilization obtained. Awaiting transportation arrangements -Likely discharge tomorrow 10/21: updated Dorea (dgtr): [phone] Admission and Anticipated Discharge Date Admission Date: October 10, 2024 Subjective Patient was seen and examined at 10:45 AM. He denies chest pain or shortness of breath. Review of Systems Review of Systems: All systems reviewed & are unremarkable except as noted in Subjective Physical Exam Physical Exam: General: Awake, conversant. Pleasantly confused Heart: S1, S2/regular rate and rhythm, no murmur rubs or gallops Lungs: Clear to auscultation bilaterally. Normal effort Abdomen: Soft/nontender/nondistended. No hepatosplenomegaly Extremities: No clubbing/cyanosis. No edema Behavior: Appropriate, cooperative Results & Data Results & Data Vital Signs (Past 12 Hours) Vital Signs Temp Pulse Pulse Resp BP BP Pulse Ox 10/26/24 14:22 36.4 C L 78 16 112/61 95 10/26/24 08:35 36.5 C 80 16 147/82 H 95 10/26/24 07:54 O2 Del Method 10/26/24 14:22 Room Air 10/26/24 08:35 Room Air 10/26/24 07:54 Room Air Laboratory Results Abnormal lab results 10/26/24 10/26/24 Range/Units 07:42 11:36 POC Glucose 137 H 153 H (70-99) mg/dl PG Care Time/CCT Total # of Minutes Spent Total Time Spent with Patient: Total time spent is greater than 50% in coordination of care (as documented) at patient's floor/unit and/or counseling patient: Coding Level of Care Code 05511 SUB INP/OBS CARE 2/35MIN Diagnoses Acute encephalopathy G93.40 Hypernatremia E87.0 Aspiration into airway T17.908A ZAMZAM (acute kidney injury) N17.9 Multiple myeloma C90.00 Confusion R41.0
[2024-10-27 07:09] VITALS: BP 156/73; PULSE 71; RESP 18; TEMP 97.5; O2SAT 96
--- NOTE | 2024-10-27 10:14 | Discharge Summary ---
Date of Service October 27, 2024 Admission HPI Per Admitting Provider 79 yo M with PMHx of MM s/p bone marrow transplant, on darzalex infusion monthly, hx of complicated pna including PCP and cryptococcus in 2021, AFib, h/o PE on DOAC, brought to the ER by family for increasing confusiong for the past 24 hours. Pt's and daughter was at bedside providing history as pt is not a good historian. Pt has had dementia for about 3 years. Over the past few months, his cognition has been declining and he has been more impulsive, having hallucinations. During these periods, he will be out looking for cows and sheep, which he sometime hallucinate. 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 He also goes out to take large equipment to check his property because he thinks people are stealing from him. Over the past 24 hours, pt has been going out of the house even at night. Once he decides to do this, he is not re-directable. If attempted, he can get angry. Pt's is not able to care for him the way he is now and is hoping for some assistance in managing his b ehavior. He does follow with PCP but PCP is not aware of the changes over the past 24 hours. Admission Exam Per Admitting Provider Gen: NAD HEENT: NC/AT, MMM, left upper chest wall port Lungs: CTAB CVS: s1s2 nl, RRR Abd: nl bowel sounds, soft, nontender Ext: depended b/l LE edema Neuro: awake, alert, cooperative, AAO x3 (person, place, time) Principal Diagnosis Acute encephalopathy Hypernatremia Aspiration into airway. Treated for aspiration pneumonia Acute kidney injury Discharge Exam General: Awake, conversant. Pleasantly confused Heart: S1, S2/regular rate and rhythm, no murmur rubs or gallops Lungs: Clear to auscultation bilaterally. Normal effort Abdomen: Soft/nontender/nondistended. No hepatosplenomegaly Extremities: No clubbing/cyanosis. No edema Behavior: Appropriate, cooperative Discharge Data Allergies Allergy/AdvReac Type Severity Reaction Status Date / Time dexamethasone AdvReac Severe Hallucinati Verified 07/06/24 11:32 on prednisone AdvReac Severe hallucinati Verified 07/06/24 11:32 ons meclizine AdvReac Intermediate HALLUCINATI Verified 07/06/24 11:32 ON sulfamethoxazole AdvReac Intermediate Hallucinati Verified 07/06/24 11:32 [From Bactrim] ng trimethoprim [From Bactrim] AdvReac Intermediate Hallucinati Verified 07/06/24 11:32 ng hydrocodone AdvReac Mild AGITATION Verified 07/06/24 11:32 levofloxacin [From Levaquin] AdvReac Mild muscle Verified 07/06/24 11:32 weakness lisinopril AdvReac Mild Dizziness Verified 07/06/24 11:32 Consultations 10/08/24 15:29 ED Decision to Admit Stat Ordered Studies Chest X-Ray 10/08/24 12:19 XR chest 1V not portable CLINICAL HISTORY: Weakness COMPARISON STUDY: Chest CT July 06, 2024. Chest radiograph September 10, 2024. FINDINGS: Left internal jugular [id number] is in place. Cardiomegaly is unchanged. There is no evidence for pulmonary edema. There is no pneumothorax or pleural effusion. There is no consolidation to suggest pneumonia. Lobulated right upper lobe nodular densities measure up to 4.5 cm in aggregate. IMPRESSION: 1. No acute cardiopulmonary findings. Stable cardiomegaly. 2. Redemonstration of multiple nodular densities within the right upper lobe, as described above. These have been shown on multiple prior exams although remain indeterminate and continued imaging follow-up is recommended. ACT 112: Negative or not required by law. Electronically signed by: Don Snowden M.D. 10/08/2024 2:46 PM Abdomen/Pelvis CT 10/08/24 12:57 EXAMINATION: CT of the abdomen and pelvis performed after the administration of IV contrast TECHNIQUE: Helical CT images from the lung bases through the symphysis pubis were obtained with contrast. Coronal and sagittal reformatted images were generated at a workstation for further assessment. Dose reduction techniques were achieved by using automatic exposure control and/or adjustment of mA and/or kV according to patient size and/or use of iterative reconstruction technique. COMPARISON: 09/10/2024 HISTORY: Confusion. Weakness FINDINGS: Lower chest: No consolidation. No pleural effusion or pneumothorax. Foci of bandlike atelectasis are scattered throughout the lung bases. The heart appears enlarged and there are heavy coronary calcifications. Prominent mitral annular calcification. There is mild aortic valve calcification. Liver: No suspicious liver lesions. Portal veins appear patent. Gallbladder: No gallstones. No evidence of acute cholecystitis. Persistent intrahepatic and extrahepatic biliary ductal dilatation. The common bile duct measures up to 11 mm as on prior. No visualized common duct stone. Spleen: Normal size. Pancreas: No suspicious pancreatic lesions. The pancreatic duct is not dilated. Adrenal glands: No adrenal nodules. Kidneys: No hydronephrosis or obstructing renal stones. Simple small left renal cyst. Bladder / Pelvic organs: Unremarkable. Bowel: No bowel obstruction. No abnormal bowel wall thickening. The appendix is unremarkable. Lymph nodes: No retroperitoneal, mesenteric, or pelvic lymphadenopathy. Peritoneum / Retroperitoneum: No free fluid or air within the abdomen. Vessels: No infrarenal aortic aneurysm. Heavy aortoiliac calcification. Bones and soft tissues: No suspicious lesion in the bones. Coarsened trabeculae diffusely throughout the bones of the spine and pelvis. Numerous mild compression deformities throughout the thoracic and lumbar spine appear similar to prior. IMPRESSION: No acute findings in the abdomen or pelvis. Persistent trabeculated and osteopenic appearance of the bones, which may be seen with multiple myeloma, as well as numerous mild chronic thoracolumbar compression deformities. Electronically signed by Saman Wallace 10-08-2024 2:[address] 10/08/24 12:57 CT head without contrast History: Trauma Comparison: 07/06/2024 Technique: Using multidetector thin collimation helical acquisition technique, axial, coronal and sagittal CT images from the skull base to the vertex were obtained without intravenous contrast. Dose reduction techniques were achieved by using automatic exposure control and/or adjustment of mA and/or kV according to patient size and/or use of iterative reconstruction technique. Findings: No intracranial hemorrhage, mass-effect, or midline shift. The ventricles are proportionate to the cerebral sulci. The munguia to white matter differentiation of the cerebral hemispheres is preserved. The basal cisterns are patent. There is moderate cerebral atrophy. Moderate, patchy low-attenuation changes in the white matter, most suggestive of sequelae of chronic small vessel ischemic disease. The visualized paranasal sinuses are clear. Mastoid air cells are clear. Impression: No acute intracranial pathology. Electronically signed by Saman Wallace 10-08-2024 2:39 PM Chest X-Ray 10/14/24 15:58 EXAM: Radiograph of the Chest 1 View INDICATION: Shortness of breath. TECHNIQUE: Frontal view of the chest. COMPARISON: 10/08/[address] chest 07/06/2024 FINDINGS: Lungs and pleural spaces: Stable irregular right upper lobe masslike infiltrate. No pleural effusion or pulmonary edema. No pneumothorax. Heart: Stable mild cardiomegaly. Mediastinum: Normal contour. Bones/joints: No fracture, erosion or dislocation. Soft tissues: No abnormality noted. No radiopaque foreign body noted. Vasculature: Stable ectatic aorta. Tubes, lines and devices: Left internal jugular port catheter tip terminates in the distal SVC. Upper abdomen: No abnormality noted. IMPRESSION: Stable irregular right upper lobe masslike infiltrate. ACT 112: Negative or not required by law. Electronically signed by Madalyn Fernandez 10-14-2024 4:27 PM Chest X-Ray 10/14/24 21:28 Exam(s): XR CXR 1 VIEW EXAM: XR Chest, 1 View CLINICAL HISTORY: Reason for exam: shortness of breath. TECHNIQUE: Frontal view of the chest. COMPARISON: 10/14/2024 FINDINGS: Lungs: No consolidation. No overt edema. Pleural space: No pleural effusion. No pneumothorax. Heart: Unremarkable. No cardiomegaly. Tubes, lines and devices: Port-A-Cath in place. IMPRESSION: No acute findings in the chest. Electronically signed by: Gordon Mckeon MD 10/14/24 23:12 PM 10/08/24 12:57 CT Abd and Pelvis [CT abd pelvis IV con only] Stat CT head/brain wo con Stat Hospital Course (1) Acute encephalopathy: (2) Hypernatremia: (3) Aspiration into airway: (4) ZAMZAM (acute kidney injury): (5) Confusion: Plan #Acute encephalopathy: resolving - Most likely acute on chronic encephalopathy - patient has baseline dementia according to family members - presents to the hospital with worsening confusion and agitation, needing restraints - no evidence of infection - CT head and CT abd did not show any acute pathology - Urinalysis did not suggest UTI - Blood cultures, negative, sputum cultures yielded normal deep - adjust meds to quetiapine 50mg nightly, added low dose quetiapine in the morning, cont prn quetiapine - cont melatonin - avoid benzos at this time - family members present with pt to help with re-orientation - discontinued sitter on 10/21/24 #Hypernatremia: - resolved after dextrose water infusion - cont oral free water intake #Aspiration into airway: resolved - patient had a lot of airway secretions - s/p zosyn for suspected aspiration pna - also glycoppyrolate for secretions #ZAMZAM (acute kidney injury): - Likely pre renal from dehydration and poor PO intake - Resolved #Multiple myeloma: - pt gets monthly infusion of daratumumab, next infusion was supposed to be 10/11/24 at the infusion center, but per family has not gotten the last 2 months of infusion - cont acyclovir #h/o PE - cont eliquis #Reactive airway disease - cont Breo #GERD - cont PPI #Dispo Discharge today Total Time Total Time Spent Total Time Spent (In Minutes): 35 Discharge Plan Discharge Items Patient Disposition: Transfer Half-Way Fac Reason For Visit: CONFUSION Discharge Diagnosis: Acute encephalopathy Hypernatremia Aspiration into airway. Treated for aspiration pneumonia Acute kidney injury Activity: As commented below Activity Comment: Per PT/OT recommendations Non-emergency contact: Primary Care Provider Call non-emergency contact if: you have any medication questions and your symptoms worsen Follow-up/Referrals: Corazon Vargas MD [Primary Care Provider] - Diet: Heart Healthy Addtl Attending Provider Instructions: Advised to follow-up with PCP in 1 week Pending Studies at Discharge: No Stand-Alone Forms: My [facility] Skilled Items Patient informed of condition?: Yes DNR: No Discharge Level of Care: Skilled Communicable Disease: No Discharge Prognosis: Stable Lines: None Urinary Catheter: No Medications and DC Order Prescriptions: New amlodipine [Norvasc] 5 mg Tablet 5 mg PO QAM 30 Days Qty: 30 0RF Continued Darzalex 20 mg/mL solution See Rx Instructions IV MONTHLY Rx Instructions: weight based intravenously monthly; Monthly at [facility] center via IV cetirizine [Zyrtec] 10 mg tablet 10 mg PO DAILY Eliquis 5 mg tablet 5 mg PO BID Qty: 180 1RF fluticasone furoate-vilanterol [Breo Ellipta] 200-25 mcg/dose blister with device 1 inh INHALATION QAM Qty: 1 5RF dexamethasone 4 mg tablet 4 mg PO UD Rx Instructions: on treatment days, once a month. pantoprazole 40 mg tablet,delayed release (DR/EC) 20 mg PO DAILY potassium citrate 10 mEq (1,080 mg) tablet extended release 1,080 mg PO DAILY 90 Days Qty: 90 3RF acyclovir 400 mg Tablet 400 mg PO BID citalopram 10 mg tablet 10 mg PO QAM thiamine HCl (vitamin B1) 100 mg Tablet 200 mg PO BID Qty: 60 0RF magnesium oxide 400 mg (241.3 mg magnesium) Tablet 400 mg PO QAM Qty: 30 0RF folic acid 1 mg Tablet 1 mg PO QAM Qty: 30 0RF metoprolol tartrate 25 mg Tablet 25 mg PO BID Qty: 60 0RF sennosides-docusate sodium [Senna Plus] 8.6-50 mg Tablet 1 tab-cap PO DAILY PRN (Reason: Constipation) cyanocobalamin (vitamin B-12) [Vitamin B-12] 1,000 mcg Tablet 1,000 mcg PO .Q OTHER DAY ergocalciferol (vitamin D2) 1,250 mcg (50,000 unit) capsule 50,000 unit PO WK Rx Instructions: Wednesday dutasteride 0.5 mg capsule 0.5 mg PO QAM acetaminophen 500 mg Tablet 1,000 mg PO UD Rx Instructions: Per spouse, she's been giving 1000mg BID pretty consistently for the last couple weeks since his fall. polyethylene glycol 3350 [Miralax] 17 gram/dose Powder 17 g PO DAILY PRN (Reason: Constipation) Discharge Orders: Discharge Order (Routine); Ordered 10/27/24 Ordered By: Edith Slater/Other Patient Handouts: Dementia Caregiver Tips, Dementia Caregiver Communication, Delirium and Dementia Admission Data Admit Date/Time: 10/10/24 12:14 Attending Provider: Edith Peter Admit Provider: Nithya Hamilton Primary Care Provider: Corazon Vargas Other Providers: Lenora Pond Other Interventions: Discharge Summary Assessment (RN) Last Done: 10/27/24 10:44
== END 2024-10-27 13:08 | DRG 70 ==
LOC: ED 12:04 → EDINP 12:04 → SUATTDRO 17:22 → 2W 10-09 19:26 → SUATTDRO 10-10 12:14 → 3N 10-11 22:35